=== PATIENT | male | born 1945 | race Caucasian/White ===

== ENCOUNTER 2022-09-24 05:46 | Inpatient (IN) | payer MEDICARE, SELFPAY ==
[2022-09-24] VITALS (33 sets, daily range): BP systolic 91–154; BP diastolic 56–124; PULSE 62–102; RESP 14–37; TEMP 35.6–37.4; O2SAT 94–100; BMI 33.0
--- NOTE | ~2022-09-24 | XR_ITS ---
EXAMINATION: XR chest PICC line Exam Date/Time: 09/30/2022 16:00 CDT HISTORY: picc line Comparison: CT 09/24/2022. RESULT: Lines, tubes, and devices: New right upper extremity PICC, terminating in the distal SVC. Lungs and pleura: Clear. Bilateral costophrenic angles are excluded from the ktgya-ak-uhin. Cardiomediastinal silhouette: Stable. Other: No acute osseous or upper abdominal finding. IMPRESSION: New right upper extremity PICC, in good position. Reviewed, dictated and finalized at location K.
--- NOTE | ~2022-09-24 | CT_ITS ---
EXAMINATION: CTA chest abdomen pelvis DATE: 09/24/2022 06:32 INDICATION: Chest pain TECHNIQUE: Computed tomographic angiography (CTA) of the chest, abdomen, and pelvis was performed wit hout and with 100 mL Omnipaque-350 intravenous contrast. Volume-rendered 3D-reconstructions of the ao rta and large arteries were constructed by the technologist on a separate workstation. Automated expo sure control and iterative reconstruction technique were employed. The dose-length product was 3590.5 8 mGy-cm. COMPARISON: None FINDINGS: Chest: Small region of focal consolidation without associated volume loss at the paramediastinal left upper lobe which is concerning for pneumonia. 5 mm left lower lobe nodule. No pulmonary edema, pleural effu jeanine or pneumothorax. Cardiomegaly with biatrial enlargement. Atherosclerotic coronary artery calcifi cations. No pericardial effusion. Thoracic aorta is normal in caliber with no dissection. No pulmonar y embolism to at least the lobar pulmonary arteries. No definitive more distal pulmonary embolism alt tegan sensitivity is decreased by suboptimal contrast opacification of the pulmonary arteries and res piratory motion. Likely reactive mild mediastinal lymphadenopathy. There are bridging osteophytes at multiple levels in the spine, consistent with diffuse idiopathic skeletal hyperostosis (DISH). Abdomen/pelvis: Suggestion of subtle liver surface nodularity suspicious for cirrhosis. Gallbladder, spleen, pancreas and bilateral adrenal glands are normal. Bilateral renal cysts the larger on the right measuring 6 c m. Indeterminate 8 mm lesion in the left kidney with thin linear internal enhancement suggesting a se ptation, at least Bosniak 2F but too small to definitively characterize. Bowels including the appendi x are normal. Bladder is normal. Prostatomegaly measuring 5.2 x 4.3 cm. Atherosclerotic calcification s along the normal caliber abdominal aorta and several of its branch vessels. No abdominal aortic ane urysm. There is a penetrating atherosclerotic ulcer along the right side of the distal abdominal aort a just within a blisterlike bulge measuring 6 mm thickness and approximately 1.8 cm diameter located near a tiny accessory right renal artery. There are also 2 tiny accessory left renal arteries. No ignacia e intraperitoneal gas or fluid. No pathologically enlarged abdominal or pelvic lymphadenopathy. Moder ate to severe lumbar spondylosis. IMPRESSION: 1. Small region of consolidation at the medial left upper lobe which is concerning for pneumonia. Dif ferential would include pulmonary infarct although no pulmonary emboli are appreciated. 2. 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 No aneurysm. 3. Cardiomegaly with biatrial enlargement. 4. Liver surface appears somewhat nodule which could be seen with cirrhosis. 5. 8 mm at least Bosniak 2F lesion at the left kidney which is too small to definitively characterize . Would recommend six-month follow-up with pre and postcontrast MRI or CT. 6. Prostatomegaly. 7. 5 mm left lower lobe nodule. If the patient is low risk for lung cancer, no follow-up is needed. I f the patient is high risk (i.e., history of smoking or asbestos or significant radiation exposure), optional follow-up chest CT could be considered at 12 months. Reviewed, dictated and finalized at location A. IMPRESSION: 1. Small region of consolidation at the medial left upper lobe which is concern ing for pneumonia. Differential would include pulmonary infarct although no pul monary emboli are appreciated. 2. 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 No aneur ysm. 3. Cardiomegaly with biatrial enlargement. 4. Liver surface appears somewhat nodule which could be seen with cirrhosis.
--- NOTE | 2022-09-24 05:48 | ECG_ITS ---
Measurements Intervals [place] Rate: 82 P: FL: 0 QRS: -72 QRSD: 82 T: 72 QT: 347 QTc: 407 Interpretive Statements POSSIBLE ATRIAL FIBRILLATION WITH ABERRANT CONDUCTION OR VENTRICULAR PREMATURE COMPLEXES BASELINE ARTIFACT PRESENT, LIMITING INTERPRETATION LEFT AXIS DEVIATION [QRS AXIS < -30] INFERIOR MYOCARDIAL INFARCTION , PROBABLY OLD [40+ ms Q WAVE AND/OR ST/T ABNORMALITY IN II/aVF] NO PREVIOUS ECG AVAILABLE FOR COMPARISON Electronically Signed On 09-24-2022 16:13:24 CDT by Froylan Osorio M.D.
[2022-09-24 06:04] LABS: Basophils Absolute Auto 0.1 K/mm3 (0.0-0.1); Basophils Percent Auto 0.5 % (0.2-1.2); Eosinophils Absolute Auto 0.1 K/mm3 (0-0.3); Eosinophils Percent Auto 0.3 % (0-4.4); Hematocrit 53.5 % (42.0-52.0); Hemoglobin 17.4 g/dL (14.0-18.0); Immature Granulocyte Absolute 0.08 K/mm3 (0.00-0.031); Immature Granulocyte Percent A 0.4 % (0-0.5); Lymphocytes Absolute Auto 1.36 K/mm3 (0.9-3.2); Lymphocytes Percent Auto 6.9 % (18.3-44.2); Mean Corpuscular HGB Conc 32.5 g/dl (32-36); Mean Corpuscular Hemoglobin 31.1 pg (26-34); Mean Corpuscular Volume 95.7 fl (80-100); Mean Platelet Volume 9.2 fl (7.4-10.4); Neutrophils Absolute Auto 17.3 K/mm3 (1.3-6.7); Neutrophils Percent Auto 86.9 % (45.5-73.1); Platelet Count Result 240 k/mm3 (150-375); Red Blood Count 5.59 M/mm3 (4.6-6.20); Red Cell Distribution Width 14.5 % (11.5-14.5); White Blood Count 19.9 K/mm3 (4.5-10.0)
[2022-09-24 06:14] LABS: Lactic Acid Reflex 2.9 mmol/L (0.7-2.0)
[2022-09-24 06:15] LABS: Alanine Aminotransferase 20 U/L (6-50); Albumin Level 4.8 g/dL (3.5-5.1); Alkaline Phosphatase 64 U/L (38-126); Anion Gap 15 mmol/L (8-16); Aspartate Amino Transferase 29 U/L (17-59); Bilirubin,Total 1.1 mg/dL (0.2-1.3); Blood Urea Nitrogen 19 mg/dL (9-20); Calcium 9.1 mg/dL (8.4-10.2); Carbon Dioxide 31 mmol/L (22-30); Chloride 94 mmol/L (98-107); Estimated Glomerular Filt Rate 59; Glucose 160 mg/dL (65-110); Lipase 87 U/L (23-300); Potassium 3.8 mmol/L (3.4-5.0); Sodium 140 mmol/L (137-145)
[2022-09-24 06:16] LABS: INR 1.3; Prothrombin Time 15.2 Seconds (11.1-14.7)
[2022-09-24] MEDS: MORPHINE SULFATE (*CRX) 4 MG/ML INJ IV PUSH (06:20)
[2022-09-24 06:27] LABS: Troponin I < 0.012 ng/mL (0.000-0.034)
[2022-09-24 06:29] LABS: Alveolar/Arterial O2 Gradient 153.3 mmHg; Base Excess ABG 0.8 mEq/l (+/-2.0); Fractional Inspired Oxygen 100 %; HCO3 ABG 25.1 mEq/l (22.0-26.0); Oxygen Content ABG 23.7 %vol (16.0-22.0); Oxygen Saturation ABG 99.9 % (95.0-100.0); Oxyhemoglobin 97.8 % THb (90.0-100.0); PO2 ABG 520.7 mmHg (80.0-100.0); PO2 FiO2 Ratio Arterial Blood 5.21 %; Total Hemoglobin 16.2 g/dL (12.0-18.0); pH ABG 7.426 (7.350-7.450)
[2022-09-24 06:30] LABS: Device NON-INVASIVE VENT; Modified Allen's Test Pass; Site Drawn LEFT RADIAL
[2022-09-24] MEDS: ASPIRIN 81 MG CHEWABLE TABLET 324 MG PO (06:30)
[2022-09-24 06:31] LABS: Non-Invasive Expiratory Pressure 6 CMH2O; Non-Invasive Inspiratory Pressure 12 CMH2O; Non-Invasive Vent Rate 4 /MIN
--- NOTE | 2022-09-24 06:33 | ED.GENADULT ---
HPI - General Adult General Chief complaint: Chest Pain <Uriel Morataya MD - Last Filed: 09/24/22 06:35> Stated complaint: chest pain <Uriel Morataya MD - Last Filed: 09/24/22 06:35> Time Seen by Provider: 09/24/22 05:55 <Uriel Morataya MD - Last Filed: 09/24/22 06:35> History of Present Illness HPI narrative: Patient is a 77-year-old gentleman who presents the emergency department with chief complaint of back pain and shortness of breath. Patient reports this evening he started having pain between shoulder blades reports it is a sharp ripping type sensation. Patient states that he started to become more short of breath his noticed that he was very mottled on his appearance and I decided to bring him to the emergency department. Patient reports symptoms or not improved by anything and reports that has not had symptoms like this before in the past. Patient does report that he is on anticoagulants. <Uriel Morataya MD - Last Filed: 09/24/22 06:35> Related Data Home medications: Home Medications Medication Instructions Recorded Confirmed acetaminophen 650 mg tablet 650 mg PO Q4H PRN Pain 09/24/22 09/24/22 alprazolam 0.25 mg tablet 0.25 mg PO HS PRN Anxiety 09/24/22 09/24/22 apixaban 5 mg tablet (Eliquis) 5 mg PO Q12H 09/24/22 09/24/22 diphenhydramine HCl 25 mg capsule 25 mg PO TID PRN Itching 09/24/22 09/24/22 (Benadryl) fluticasone propionate 50 2 spray intranasal DAILY 09/24/22 09/24/22 mcg/actuation nasal spray,suspension loratadine 10 mg tablet (Claritin) 10 mg PO DAILY 09/24/22 09/24/22 melatonin 10 mg tablet 10 mg PO HS 09/24/22 09/24/22 metoprolol succinate 100 mg 100 mg PO QPM 09/24/22 09/24/22 tablet,extended release 24 hr montelukast 10 mg tablet 10 mg PO DAILY 09/24/22 09/24/22 nbaevhfo-aog-oscdg acid 300 1 tablet PO DAILY 09/24/22 09/24/22 mcg-lycopene 600 mcg-lutein 300 [facility]cg tablet [facility] pantoprazole 40 mg tablet,delayed 40 mg PO QPM 09/24/22 09/24/22 release pravastatin 40 mg tablet 40 mg PO QPM 09/24/22 09/24/22 valsartan 320 1 tablet PO DAILY 09/24/22 09/24/22 mg-hydrochlorothiazide 25 mg tablet <Uriel Morataya MD - Last Filed: 09/24/22 06:35> Allergies/adverse reactions: Allergies Allergy/AdvReac Type Severity Reaction Status Date / Time nirmatrelvir AdvReac Insomnia Verified 09/24/22 12:51 [From Paxlovid (EUA)] ritonavir AdvReac Insomnia Verified 09/24/22 12:51 [From Paxlovid (EUA)] <Uriel Morataya MD - Last Filed: 09/24/22 06:35> Review of Systems Review of Systems: A 10 system review of systems was completed on the patient and is negative except for what is stated in the HPI. Nursing and ancillary documentation was reviewed. <Uriel Morataya MD - Last Filed: 09/24/22 06:35> [facility] Family History Family History: Family History Father Heart problem Lung cancer Hernia Sibling Heart problem Family history of heart disease in male family member before age 55 Breast cancer Uterine cancer Mother Hypertension Diabetes mellitus Anemia <Uriel Morataya MD - Last Filed: 09/24/22 06:35> Social History Social History: Social History Smoking packs per day: 1 Smoking cigarettes per day: 20.0 Years smoked: 33 Smoking pack-years: 33.00 Smoking status: Former smoker Tobacco type: cigarettes Alcohol intake: current Drinks per week: 1 Substance use: current Substance use type: marijuana Spiritual care concerns: No Has the Lack of Transportation Kept You From Medical Appointments or From Getting Medications?: No Within the Past 12 Months, Were You Worried Whether Your Food Would Run Out Before You Got Money to Buy More?: Never True What is Your Housing Situation Today?: I Have Ho
[2022-09-24 07:00] LABS: Procalcitonin 0.1 ng/mL
[2022-09-24 07:05] LABS: Influenza A QL RT-PCR Negative (Negative); Influenza B QL RT-PCR Negative (Negative); SARS-CoV-2 RNA PCR Negative
[2022-09-24 07:55] LABS: NT Pro B Type Natriuretic Pept 2970 pg/mL (5-100)
[2022-09-24 09:02] LABS: Reflex Lactic Acid Yes or No Add Lactic
[2022-09-24 09:08] LABS: Troponin I 0.028 ng/mL (0.000-0.034)
[2022-09-24 09:28] LABS: Lactic Acid 2.2 mmol/L (0.7-2.0)
--- NOTE | 2022-09-24 10:41 | PC.NURSE ---
EDP John notified of patient's blood pressure of 102/64. Per EDP, do not administer Lasix at this time. Patient resting comfortably in bed.
--- NOTE | 2022-09-24 11:36 | PC.NURSE ---
Report received by Rikki RN with the ED department at 1108. Patient to go to IMU room 232.
--- NOTE | 2022-09-24 11:36 | ADMGEN ---
This patient, Billy Russ, was admitted to IMU Room 232-01 at 1131. Patient/family oriented to hospital policies and general routines including ID bracelet, bed and alarms, visiting hours, pain management, procedures, bathroom and other care routines, personal items, smoking policy, room service/diet, and visiting hours. Information on how to activate the Rapid Response Team has been discussed. Patient/Family are encouraged to report perceived risks to care and to ask questions if they do not understand what they are told or what they should do.
--- NOTE | 2022-09-24 11:43 | PC.NURSE ---
Patient arrived from ED on bipap with settings of 11/05, rate 4, 35% FiO2
[2022-09-24 12:06] LABS: Alveolar/Arterial O2 Gradient 65.8 mmHg; Base Excess ABG 1.8 mEq/l (+/-2.0); Device BIPAP; Expiratory Pressure 6 cmH2O; Fractional Inspired Oxygen 35 %; Inspiratory Pressure 12 cmH2O; Modified Allen's Test Pass; Oxygen Saturation ABG 98.8 % (95.0-100.0); Oxyhemoglobin 96.9 % THb (90.0-100.0); PCO2 ABG 39.4 mmHg (35.0-45.0); PO2 FiO2 Ratio Arterial Blood 3.94 %; Site Drawn RIGHT RADIAL; pH ABG 7.437 (7.350-7.450)
[2022-09-24 16:24] LABS: Troponin I 0.029 ng/mL (0.000-0.034)
--- NOTE | 2022-09-24 16:45 | PM.IMHP ---
H&P: HPI History of Present Illness Date/Time: 09/24/22 16:45 Chief Complaint: Chest pain and shortness of breath. Narrative: This is a very pleasant 77-year-old male with paroxysmal atrial fibrillation on anticoagulation, hypertension, hyperlipidemia, COPD, GERD, and spinal stenosis who presented to the emergency department via private vehicle from home for evaluation of chest pain and shortness of breath. He was feeling fine when he went to bed last night at about 03:00 he was wakened from sleep with sudden sharp, shooting, and almost ripping pain just left of the sternum radiating through to the left scapula associated with shortness of breath. Initially he thought he had strained his back muscles as they had company last week and they went on excursions that he does not typically do, including a hike at [facility]. He had his massage the area which did not alleviate or aggravate the pain and due to continued symptoms he came into the ER for further evaluation. On arrival to triage his SpO2 was 88% on room air and he was reportedly using accessory muscles to help him breathe. He was placed on a non-rebreather and ultimately was placed on a BiPAP though he has been weaned off of that. CTA of the chest, abdomen, and pelvis performed emergently showed a small region of consolidation at the medial left upper lobe concerning for pneumonia with a differential diagnosis to include pulmonary infarct however no pulmonary emboli were appreciated. 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 Patient reports that he is being followed by a vascular surgeon in [place] for this. Labs were significant for a WBC of 19.9, lactic acid 2.9, proBNP 2970, and normal troponin x3. EKG did not show any acute ST segment changes. Given his comorbidities, he is being admitted for observation and close monitoring. At the time my evaluation he is resting comfortably and he does not have any significant discomfort. We did discuss findings of possible pneumonia on imaging and he reports having a history of pneumonia though he has not necessarily had any symptoms of such aside from fatigue the last couple of days. He denies fever, chills, sweats, sinus congestion, sore throat, cough, sick contacts (he has been out and about in the community though more over the last week as company was in town), exertional chest pain, pleuritic pain, palpitations, syncope, near syncope, nausea, vomiting, and diaphoresis. Of note the patient is followed by Dr. Stephany esparza with [facility] in [place] and he has an appointment next week for stress test, not particularly for any reason or any issues with chest pain. Review of Systems Review of Systems: Twelve systems were reviewed. No syncope or near syncope. Prostate was enlarged on imaging and he does report that he gets up at least 2 times at night to urinate. Denies concerns for urinary retention. Urine has been malodorous but he denies dysuria, urgency, and hesitancy. Except as documented, all other systems were reviewed and are negative. [facility] Past Medical History Medical History (Updated 09/24/22 @ 21:47 by Katya Ponce PA-C) Anxiety Aortic aneurysm Being monitored by a vascular surgeon in [place]. 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 No aneurysm. Arthritis Chronic anticoagulation Chronic obstructive pulmonary disease Obstructive sleep apnea on CPAP Paroxysmal atrial fibrillation Spinal stenosis Surgical History Surgical History (Updated 09/24/22 @ 21:11 by Katya Ponce PA-C) History of bilateral cataract extraction History of cardiac radiofrequency ablation Family History Family History Father Heart problem Lung cancer Hernia Sibling Heart problem Family history of heart disease in male family member before
[2022-09-24] MEDS: MELATONIN 5 MG TABLET 10 MG PO (22:47)
[2022-09-24] MEDS: PANTOPRAZOLE 40 MG TABLET PO (22:47)
[2022-09-24] MEDS: PRAVASTATIN SODIUM 20 MG TABLET 40 MG PO (22:47)
[2022-09-24] MEDS: APIXABAN 5 MG TABLET PO (22:48)
[2022-09-24] MEDS: ACETAMINOPHEN 325 MG TABLET 650 MG PO (22:55)
[2022-09-25] VITALS (14 sets, daily range): BP systolic 128–151; BP diastolic 66–88; PULSE 66–83; RESP 16–20; TEMP 35.8–37.6; O2SAT 96–99
[2022-09-25 05:19] LABS: Hematocrit 46.4 % (42.0-52.0); Hemoglobin 14.9 g/dL (14.0-18.0); Mean Corpuscular HGB Conc 32.1 g/dl (32-36); Mean Corpuscular Volume 96.7 fl (80-100); Mean Platelet Volume 9.5 fl (7.4-10.4); Platelet Count Result 171 k/mm3 (150-375); Red Cell Distribution Width 14.8 % (11.5-14.5); White Blood Count 19.4 K/mm3 (4.5-10.0)
[2022-09-25 05:29] LABS: Anion Gap 11 mmol/L (8-16); Blood Urea Nitrogen 27 mg/dL (9-20); Calcium 8.5 mg/dL (8.4-10.2); Carbon Dioxide 32 mmol/L (22-30); Chloride 96 mmol/L (98-107); Estimated CRCL calculation 57 ml/min; Estimated Glomerular Filt Rate 54; Glucose 118 mg/dL (65-110); Lactic Acid Reflex 1.7 mmol/L (0.7-2.0); Potassium 3.8 mmol/L (3.4-5.0); Sodium 139 mmol/L (137-145)
[2022-09-25] MEDS: FLUTICASONE PROPIONATE 0.05% NA SPR 16 GM BTL (*BKC) 2 SPRAY NASAL (09:12)
[2022-09-25] MEDS: hydroCHLOROthiazide 25 MG TABLET PO (09:12)
[2022-09-25] MEDS: APIXABAN 5 MG TABLET PO ×2 (09:12→21:09)
[2022-09-25] MEDS: MONTELUKAST SODIUM 10 MG TABLET PO (09:12)
[2022-09-25] MEDS: VALSARTAN 160 MG TABLET 320 MG PO (09:12)
[2022-09-25] MEDS: OPTI-GEN TAB 1 TABLET PO (09:12)
[2022-09-25] MEDS: LORATADINE 10 MG TABLET PO (09:12)
[2022-09-25] MEDS: cefTRIAXone 2 GM in SODIUM CHLORIDE 0.9% IV 100 ML 200 ML IVPB (09:32)
[2022-09-25] MEDS: PERFLUTREN LIPID MICROSPHERES 1.5 ML VIAL DILUTED TO 10 ML TOTAL VOLUME IV PUSH (10:41)
--- NOTE | 2022-09-25 10:42 | IVDEFINITY ---
Prior to administration of IV Definity the patient was educated on the risks and benefits of the imaging enhancing agent including potential adverse side effects. The patient verbalized understanding. Allergies were verified. No exclusion criteria were identified and at least one of the following inclusion criteria were met: 1) physician request, 2) patient technically difficult to image (per the [place] [employer] guidelines of two or more segments not discernable within the apical view), or 3) questionable left ventricular function. ?
[2022-09-25] MEDS: UMECLIDINIUM BROMIDE 62.5 MCG ELLIPTA 1 PUFF INHALATION (13:48)
--- NOTE | 2022-09-25 16:33 | PM.IMPN ---
Progress Note: A&P Assessment and Plan (1) Chest pain: Code(s): R07.9 - Chest pain, unspecified Status: Acute Assessment and Plan: 09/25/2022 interval history: patient presented with chest pain CT scan of the chest showed pneumonia, patient has significant elevated white count, and blood culture is growing Gram-negative bacilli we started the patient ceftriaxone 2 g q.day and azithromycin, follow-up on blood culture and sensitivity and further recommendation to follow, states is feeling much better compared to when he arrived chest pain is also improved, marianne (2) Shortness of breath: Code(s): R06.02 - Shortness of breath Status: Acute (3) Consolidation of left upper lobe of lung: Code(s): J18.1 - Lobar pneumonia, unspecified organism Status: Acute (4) Cardiomegaly: Code(s): I51.7 - Cardiomegaly Status: Acute (5) Penetrating atherosclerotic ulcer of aorta: Code(s): I71.9 - Aortic aneurysm of unspecified site, without rupture Status: Acute (6) Lesion of left false pass kidney: Code(s): N28.9 - Disorder of kidney and ureter, unspecified Status: Acute (7) Left lower lobe pulmonary nodule: Code(s): R91.1 - Solitary pulmonary nodule Status: Acute (8) Enlarged prostate: Code(s): N40.0 - Benign prostatic hyperplasia without lower urinary tract symptoms Status: Acute (9) Abnormal liver diagnostic imaging: Code(s): R93.2 - Abnormal findings on diagnostic imaging of liver and biliary tract Status: Acute (10) Obstructive sleep apnea on CPAP: Code(s): G47.33 - Obstructive sleep apnea (adult) (pediatric); Z99.89 - Dependence on other enabling machines and devices Status: Acute (11) Chronic obstructive pulmonary disease: Code(s): J44.9 - Chronic obstructive pulmonary disease, unspecified Status: Acute (12) Paroxysmal atrial fibrillation: Code(s): I48.0 - Paroxysmal atrial fibrillation Status: Acute (13) Chronic anticoagulation: Code(s): Z79.01 - senior living (current) use of anticoagulants Status: Acute Plan The patient presented to the emergency department for evaluation of sharp, shooting, and ripping pain in the left mid chest region radiating to the left scapula associated with shortness of breath and mild lightheadedness. CTA of the chest, abdomen, and pelvis ruled out dissection and pulmonary embolism. A small region of consolidation noted at the medial left upper lobe is concerning for pneumonia and given his elevated white blood cell count he will be empirically started on antibiotics. Penetrating atherosclerotic ulcer along the distal abdominal aorta was noted and patient reports that he is seeing a vascular surgeon in [place] for an aneurysm though I am wondering if it is instead for this ulcer. He has rule out for acute coronary syndrome by serial troponins and his EKG does not demonstrate any acute ST segment changes. Cardiomegaly with biatrial enlargement was noted on imaging today thus will check an echocardiogram and if abnormal he will need to see Cardiology in consultation. He does have an upcoming appointment on Friday with his senior technical writer, Dr. Valentin in [place]. No evidence to suggest acute COPD exacerbation on exam today. A 5 millimeter left lower lobe nodule was noted on imaging and with his smoking history he should have a follow-up chest CT in 12 months for re-evaluation. Also noted was an 8 millimeter left kidney lesion which the radiologist recommends following up with a pre and post-contrast MRI or CT in 6 months time. Liver surface appeared somewhat nodular which could be seen with cirrhosis in this should be worked up as an outpatient. His vital signs have been stable. His home medications will be reviewed and resumed as appropriate. Subjective Date/time seen: 09/25/22 16:33 HPI-Narrative: This is a very pleasant 77-year-old male with paroxysmal atrial fi
[2022-09-25] MEDS: PANTOPRAZOLE 40 MG TABLET PO (17:35)
[2022-09-25] MEDS: PRAVASTATIN SODIUM 20 MG TABLET 40 MG PO (17:36)
[2022-09-25] MEDS: METOPROLOL SUCCINATE EXT REL 100 MG TABCR PO (17:36)
[2022-09-25] MEDS: MELATONIN 5 MG TABLET 10 MG PO (21:09)
--- NOTE | 2022-09-25 21:52 | ECHO_ITS ---
Patient Info Name: Billy Russ Age: 77 years : 1945 Gender: Male Ht: 73 in Wt: 250 lbs BSA: 2.45 m2 HR: 75 bpm BP: 145 / 68 mmHg Heart Rhythm: Atrial Fibrillation Technical Quality: Fair Exam Date: 09/25/2022 10:17 AM Exam Location: [facility] Pulmonary Patient Status: Inpatient Admit Date: 09/24/2022 Staff Ordering Physician: Katya Ponce PA-C Automobile Spring Repairer: Terra Greene RDCS Attending Provider: Jacoby Pinto MD Referring Physician: Rosario BARRAGAN; Exam Type: CA echo dop color flow w con Study Info Indications - Afib I51.7 - Cardiomegaly R07.9 - Chest pain, unspecified Complete two-dimensional, color flow and Doppler transthoracic echocardiogram is performed with contrast to opacify the left ventricle and to improve the deliniation of the left ventricle endocardial borders. Contrast/Agitated Saline Contrast/Ag. Saline: Definity Amount: 3.00 ml Administered By: Terra Greene RDCS Existing IV Access: Yes IV Access Condition: patent with no signs of infiltration Summary 1. Left ventricular systolic function is normal, estimated at 60-65%. 2. Right ventricular systolic function is normal. 3. There is mild tricuspid valve regurgitation. Left Ventricle Left ventricular chamber dimension is normal. Left ventricular systolic function is normal, estimated at 60-65%. There is no increased left ventricular wall thickness. Right Ventricle Right ventricular chamber dimension is normal. Right ventricular systolic function is normal. Left Atria Left atrial chamber dimension is normal. Right Atria Right atrial chamber dimension is mildly enlarged. Aortic Valve The aortic valve is not well visualized. There is no aortic valve stenosis. There is no aortic valve regurgitation. Pulmonic Valve The pulmonic valve is not well visualized. Mitral Valve The mitral valve has normal leaflets. There is no mitral valve stenosis. There is no mitral valve regurgitation. Tricuspid Valve The tricuspid valve leaflets are normal. There is mild tricuspid valve regurgitation. Pericardium/Pleural The pericardium appears epicardial fat pad. There is no pericardial effusion. Inferior Vena Cava Dilated inferior vena cava with <50% collapse upon inspiration consistent with elevated right atrial pressure, 15 mmHg. Aorta The aortic root size at the sinus of Valsalva is normal. Left Ventricular Outflow Tract Name Value Normal LVOT 2D LVOT Diameter 2.21 cm LVOT Doppler LVOT Peak Gradient 2 mmHg LVOT Mean Gradient 1 mmHg LVOT VTI 12.61 cm LVOT VTI/AV VTI Ratio 0.54 LVOT Stroke Volume 48.15 ml LVOT CO 3.63 l/min LVOT CI 1.48 L/min/m2 Pulmonic Valve Name Value Normal
[2022-09-26 05:36] VITALS: BP 131/68; PULSE 74; RESP 18; TEMP 36.8; O2SAT 94
--- NOTE | 2022-09-26 05:40 | PC.NURSE ---
This patient, Billy Russ, was transferred to [facility] on 09/25/22 at 2130. Personal belongings sent with patient. Report given to Hal[place]. Appropriate documentation sent with patient.
[2022-09-26 05:44] LABS: Hematocrit 47.3 % (42.0-52.0); Hemoglobin 15.6 g/dL (14.0-18.0); Mean Corpuscular Hemoglobin 31.4 pg (26-34); Mean Corpuscular Volume 95.2 fl (80-100); Mean Platelet Volume 9.7 fl (7.4-10.4); Platelet Count Result 165 k/mm3 (150-375); Red Blood Count 4.97 M/mm3 (4.6-6.20); Red Cell Distribution Width 14.6 % (11.5-14.5); White Blood Count 13.5 K/mm3 (4.5-10.0)
[2022-09-26 05:56] LABS: Anion Gap 11 mmol/L (8-16); Blood Urea Nitrogen 24 mg/dL (9-20); Calcium 8.8 mg/dL (8.4-10.2); Carbon Dioxide 32 mmol/L (22-30); Chloride 96 mmol/L (98-107); Estimated CRCL calculation 67 ml/min; Estimated Glomerular Filt Rate > 60; Glucose 124 mg/dL (65-110); Potassium 3.5 mmol/L (3.4-5.0); Sodium 139 mmol/L (137-145)
[2022-09-26] MEDS: APIXABAN 5 MG TABLET PO ×2 (08:35→21:53)
[2022-09-26] MEDS: FLUTICASONE PROPIONATE 0.05% NA SPR 16 GM BTL (*BKC) 2 SPRAY NASAL (08:35)
[2022-09-26] MEDS: hydroCHLOROthiazide 25 MG TABLET PO (08:35)
[2022-09-26] MEDS: OPTI-GEN TAB 1 TABLET PO (08:36)
[2022-09-26] MEDS: MONTELUKAST SODIUM 10 MG TABLET PO (08:36)
[2022-09-26] MEDS: VALSARTAN 160 MG TABLET 320 MG PO (08:36)
[2022-09-26] MEDS: LORATADINE 10 MG TABLET PO (08:36)
[2022-09-26 09:03] VITALS: PULSE 79; O2SAT 93
[2022-09-26] MEDS: UMECLIDINIUM BROMIDE 62.5 MCG ELLIPTA 1 PUFF INHALATION (09:03)
[2022-09-26] MEDS: cefTRIAXone 2 GM in SODIUM CHLORIDE 0.9% IV 100 ML 200 ML IVPB (10:56)
[2022-09-26 14:00] VITALS: BP 141/84; PULSE 73; RESP 16; TEMP 36.8; O2SAT 99
--- NOTE | 2022-09-26 16:19 | PM.IMPN ---
Progress Note: A&P Assessment and Plan (1) Chest pain: Code(s): R07.9 - Chest pain, unspecified Status: Acute Assessment and Plan: 09/26/2022 interval history: patient presented with chest pain CT scan of the chest showed pneumonia, patient has significant elevated white count, and blood culture is growing Pseudomonas, discussed with pharmacy ID patient will need Cefepime for 14 days, will continue azithromycin to cover for atypicals, patient states states is feeling much better compared to when he arrived chest pain is also improved. (2) Shortness of breath: Code(s): R06.02 - Shortness of breath Status: Acute (3) Consolidation of left upper lobe of lung: Code(s): J18.1 - Lobar pneumonia, unspecified organism Status: Acute (4) Cardiomegaly: Code(s): I51.7 - Cardiomegaly Status: Acute (5) Penetrating atherosclerotic ulcer of aorta: Code(s): I71.9 - Aortic aneurysm of unspecified site, without rupture Status: Acute (6) Lesion of left [place] kidney: Code(s): N28.9 - Disorder of kidney and ureter, unspecified Status: Acute (7) Left lower lobe pulmonary nodule: Code(s): R91.1 - Solitary pulmonary nodule Status: Acute (8) Enlarged prostate: Code(s): N40.0 - Benign prostatic hyperplasia without lower urinary tract symptoms Status: Acute (9) Abnormal liver diagnostic imaging: Code(s): R93.2 - Abnormal findings on diagnostic imaging of liver and biliary tract Status: Acute (10) Obstructive sleep apnea on CPAP: Code(s): G47.33 - Obstructive sleep apnea (adult) (pediatric); Z99.89 - Dependence on other enabling machines and devices Status: Acute (11) Chronic obstructive pulmonary disease: Code(s): J44.9 - Chronic obstructive pulmonary disease, unspecified Status: Acute (12) Paroxysmal atrial fibrillation: Code(s): I48.0 - Paroxysmal atrial fibrillation Status: Acute (13) Chronic anticoagulation: Code(s): Z79.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 CTA of the chest, abdomen, and pelvis ruled out dissection and pulmonary embolism. A small region of consolidation noted at the medial left upper lobe is concerning for pneumonia and given his elevated white blood cell count he will be empirically started on antibiotics. Penetrating atherosclerotic ulcer along the distal abdominal aorta was noted and patient reports that he is seeing a vascular surgeon in [place] for an aneurysm though I am wondering if it is instead for this ulcer. He has rule out for acute coronary syndrome by serial troponins and his EKG does not demonstrate any acute ST segment changes. Cardiomegaly with biatrial enlargement was noted on imaging today thus will check an echocardiogram and if abnormal he will need to see Cardiology in consultation. He does have an upcoming appointment on Friday with his elevator repairer, Dr. Valentin in [place]. No evidence to suggest acute COPD exacerbation on exam today. A 5 millimeter left lower lobe nodule was noted on imaging and with his smoking history he should have a follow-up chest CT in 12 months for re-evaluation. Also noted was an 8 millimeter left kidney lesion which the radiologist recommends following up with a pre and post-contrast MRI or CT in 6 months time. Liver surface appeared somewhat nodular which could be seen with cirrhosis in this should be worked up as an outpatient. His vital signs have been stable. His home medications will be reviewed and resumed as appropriate. Subjective Date/time seen: 09/26/22 16:19 09/26/2022 interval history: patient presented with chest pain CT scan of the chest showed pneumonia
[2022-09-26 17:13] VITALS: PULSE 71
[2022-09-26] MEDS: METOPROLOL SUCCINATE EXT REL 100 MG TABCR PO (17:13)
[2022-09-26] MEDS: PRAVASTATIN SODIUM 20 MG TABLET 40 MG PO (17:13)
[2022-09-26] MEDS: PANTOPRAZOLE 40 MG TABLET PO (17:13)
[2022-09-26] MEDS: MELATONIN 5 MG TABLET 10 MG PO (21:53)
[2022-09-26 22:00] VITALS: BP 144/87; PULSE 75; RESP 18; TEMP 36.4; O2SAT 96
[2022-09-27 05:45] VITALS: BP 147/83; PULSE 83; RESP 18; TEMP 36.4; O2SAT 97
[2022-09-27 05:47] LABS: Hematocrit 47.8 % (42.0-52.0); Hemoglobin 15.9 g/dL (14.0-18.0); Mean Corpuscular HGB Conc 33.3 g/dl (32-36); Mean Corpuscular Hemoglobin 31.3 pg (26-34); Mean Corpuscular Volume 94.1 fl (80-100); Mean Platelet Volume 9.9 fl (7.4-10.4); Platelet Count Result 214 k/mm3 (150-375); Red Blood Count 5.08 M/mm3 (4.6-6.20); Red Cell Distribution Width 14.4 % (11.5-14.5); White Blood Count 11.9 K/mm3 (4.5-10.0)
[2022-09-27 06:01] LABS: Anion Gap 10 mmol/L (8-16); Blood Urea Nitrogen 21 mg/dL (9-20); Calcium 9.1 mg/dL (8.4-10.2); Carbon Dioxide 26 mmol/L (22-30); Chloride 98 mmol/L (98-107); Estimated CRCL calculation 73 ml/min; Estimated Glomerular Filt Rate > 60; Glucose 118 mg/dL (65-110); Potassium 3.8 mmol/L (3.4-5.0); Sodium 134 mmol/L (137-145)
[2022-09-27] MEDS: UMECLIDINIUM BROMIDE 62.5 MCG ELLIPTA 1 PUFF INHALATION (07:51)
[2022-09-27] MEDS: FLUTICASONE PROPIONATE 0.05% NA SPR 16 GM BTL (*BKC) 2 SPRAY NASAL (09:30)
[2022-09-27] MEDS: APIXABAN 5 MG TABLET PO ×2 (09:30→21:46)
[2022-09-27] MEDS: hydroCHLOROthiazide 25 MG TABLET PO (09:30)
[2022-09-27] MEDS: VALSARTAN 160 MG TABLET 320 MG PO (09:31)
[2022-09-27] MEDS: MONTELUKAST SODIUM 10 MG TABLET PO (09:31)
[2022-09-27] MEDS: OPTI-GEN TAB 1 TABLET PO (09:31)
[2022-09-27] MEDS: LORATADINE 10 MG TABLET PO (09:31)
[2022-09-27 15:32] VITALS: BP 148/97; PULSE 73; RESP 18; TEMP 36.7; O2SAT 97
--- NOTE | 2022-09-27 16:28 | PM.IMPN ---
Progress Note: A&P Assessment and Plan (1) Chest pain: Code(s): R07.9 - Chest pain, unspecified Status: Acute Assessment and Plan: 09/27/2022 interval history: patient presented with chest pain CT scan of the chest showed pneumonia, patient had significant elevated white count 19.0 its trending down to 11.9 today, and blood culture is growing Pseudomonas, discussed with pharmacy ID patient will need Cefepime for 14 days, will continue azithromycin to cover for atypicals, patient states states is feeling much better compared to when he arrived and chest pain is also improved. there is a possibility the patient can finish remaining antibiotics at home social service is working on the plan (2) Shortness of breath: Code(s): R06.02 - Shortness of breath Status: Acute (3) Consolidation of left upper lobe of lung: Code(s): J18.1 - Lobar pneumonia, unspecified organism Status: Acute (4) Cardiomegaly: Code(s): I51.7 - Cardiomegaly Status: Acute (5) Penetrating atherosclerotic ulcer of aorta: Code(s): I71.9 - Aortic aneurysm of unspecified site, without rupture Status: Acute (6) Lesion of left [place] kidney: Code(s): N28.9 - Disorder of kidney and ureter, unspecified Status: Acute (7) Left lower lobe pulmonary nodule: Code(s): R91.1 - Solitary pulmonary nodule Status: Acute (8) Enlarged prostate: Code(s): N40.0 - Benign prostatic hyperplasia without lower urinary tract symptoms Status: Acute (9) Abnormal liver diagnostic imaging: Code(s): R93.2 - Abnormal findings on diagnostic imaging of liver and biliary tract Status: Acute (10) Obstructive sleep apnea on CPAP: Code(s): G47.33 - Obstructive sleep apnea (adult) (pediatric); Z99.89 - Dependence on other enabling machines and devices Status: Acute (11) Chronic obstructive pulmonary disease: Code(s): J44.9 - Chronic obstructive pulmonary disease, unspecified Status: Acute (12) Paroxysmal atrial fibrillation: Code(s): I48.0 - Paroxysmal atrial fibrillation Status: Acute (13) Chronic anticoagulation: Code(s): 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 CTA of the chest, abdomen, and pelvis ruled out dissection and pulmonary embolism. A small region of consolidation noted at the medial left upper lobe is concerning for pneumonia and given his elevated white blood cell count he will be empirically started on antibiotics. Penetrating atherosclerotic ulcer along the distal abdominal aorta was noted and patient reports that he is seeing a vascular surgeon in [place] for an aneurysm though I am wondering if it is instead for this ulcer. He has rule out for acute coronary syndrome by serial troponins and his EKG does not demonstrate any acute ST segment changes. Cardiomegaly with biatrial enlargement was noted on imaging today thus will check an echocardiogram and if abnormal he will need to see Cardiology in consultation. He does have an upcoming appointment on Friday with his decating machine operator, Dr. Valentin in [place]. No evidence to suggest acute COPD exacerbation on exam today. A 5 millimeter left lower lobe nodule was noted on imaging and with his smoking history he should have a follow-up chest CT in 12 months for re-evaluation. Also noted was an 8 millimeter left kidney lesion which the radiologist recommends following up with a pre and post-contrast MRI or CT in 6 months time. Liver surface appeared somewhat nodular which could be seen with cirrhosis in this should be worked up as an outpatient. His vital signs have been stable. His home medications will be reviewed and resumed as appropr
[2022-09-27 18:20] VITALS: PULSE 76
[2022-09-27] MEDS: METOPROLOL SUCCINATE EXT REL 100 MG TABCR PO (18:20)
[2022-09-27] MEDS: PRAVASTATIN SODIUM 20 MG TABLET 40 MG PO (18:20)
[2022-09-27] MEDS: PANTOPRAZOLE 40 MG TABLET PO (18:20)
[2022-09-27 21:25] VITALS: BP 143/85; PULSE 74; RESP 18; TEMP 36.2; O2SAT 99
[2022-09-27] MEDS: MELATONIN 5 MG TABLET 10 MG PO (21:46)
[2022-09-28 04:32] VITALS: BP 131/81; PULSE 75; RESP 18; TEMP 36.4; O2SAT 96
[2022-09-28 09:20] LABS: Hematocrit 48.6 % (42.0-52.0); Hemoglobin 16.3 g/dL (14.0-18.0); Mean Corpuscular HGB Conc 33.5 g/dl (32-36); Mean Corpuscular Hemoglobin 31.2 pg (26-34); Mean Corpuscular Volume 93.1 fl (80-100); Mean Platelet Volume 9.3 fl (7.4-10.4); Platelet Count Result 245 k/mm3 (150-375); Red Blood Count 5.22 M/mm3 (4.6-6.20); Red Cell Distribution Width 14.2 % (11.5-14.5); White Blood Count 10.7 K/mm3 (4.5-10.0)
[2022-09-28] MEDS: UMECLIDINIUM BROMIDE 62.5 MCG ELLIPTA 1 PUFF INHALATION (09:27)
[2022-09-28 09:30] VITALS: O2SAT 98
[2022-09-28] MEDS: FLUTICASONE PROPIONATE 0.05% NA SPR 16 GM BTL (*BKC) 2 SPRAY NASAL (09:32)
[2022-09-28] MEDS: MONTELUKAST SODIUM 10 MG TABLET PO (09:33)
[2022-09-28] MEDS: VALSARTAN 160 MG TABLET 320 MG PO (09:33)
[2022-09-28] MEDS: OPTI-GEN TAB 1 TABLET PO (09:33)
[2022-09-28] MEDS: hydroCHLOROthiazide 25 MG TABLET PO (09:33)
[2022-09-28] MEDS: LORATADINE 10 MG TABLET PO (09:33)
[2022-09-28] MEDS: APIXABAN 5 MG TABLET PO ×2 (09:33→20:27)
[2022-09-28 09:45] LABS: Anion Gap 11 mmol/L (8-16); Blood Urea Nitrogen 21 mg/dL (9-20); Calcium 9.3 mg/dL (8.4-10.2); Carbon Dioxide 29 mmol/L (22-30); Chloride 95 mmol/L (98-107); Estimated CRCL calculation 67 ml/min; Estimated Glomerular Filt Rate > 60; Glucose 121 mg/dL (65-110); Potassium 4.3 mmol/L (3.4-5.0); Sodium 135 mmol/L (137-145)
--- NOTE | 2022-09-28 13:07 | PM.IMPN ---
Progress Note: A&P Assessment and Plan (1) Chest pain: Code(s): R07.9 - Chest pain, unspecified Status: Acute Assessment and Plan: 09/28/2022 interval history: patient presented with chest pain CT scan of the chest showed pneumonia, patient had significant elevated white count 19.0 its trending down to 10.7 today, and blood culture is growing Pseudomonas, discussed with pharmacy ID patient will need Cefepime for 14 days, will continue azithromycin to cover for atypicals, patient states states is feeling much better compared to when he arrived and chest pain is also improved. there is a possibility the patient can finish remaining antibiotics at home social service is working on the plan (2) Shortness of breath: Code(s): R06.02 - Shortness of breath Status: Acute (3) Consolidation of left upper lobe of lung: Code(s): J18.1 - Lobar pneumonia, unspecified organism Status: Acute (4) Cardiomegaly: Code(s): I51.7 - Cardiomegaly Status: Acute (5) Penetrating atherosclerotic ulcer of aorta: Code(s): I71.9 - Aortic aneurysm of unspecified site, without rupture Status: Acute (6) Lesion of left [place] kidney: Code(s): N28.9 - Disorder of kidney and ureter, unspecified Status: Acute (7) Left lower lobe pulmonary nodule: Code(s): R91.1 - Solitary pulmonary nodule Status: Acute (8) Enlarged prostate: Code(s): N40.0 - Benign prostatic hyperplasia without lower urinary tract symptoms Status: Acute (9) Abnormal liver diagnostic imaging: Code(s): R93.2 - Abnormal findings on diagnostic imaging of liver and biliary tract Status: Acute (10) Obstructive sleep apnea on CPAP: Code(s): G47.33 - Obstructive sleep apnea (adult) (pediatric); Z99.89 - Dependence on other enabling machines and devices Status: Acute (11) Chronic obstructive pulmonary disease: Code(s): J44.9 - Chronic obstructive pulmonary disease, unspecified Status: Acute (12) Paroxysmal atrial fibrillation: Code(s): I48.0 - Paroxysmal atrial fibrillation Status: Acute (13) Chronic anticoagulation: Code(s): Z79.01 - rn long term care (current) use of anticoagulants Status: Acute Plan The patient presented to the emergency department for evaluation of sharp, shooting, and ripping pain in the left mid chest region radiating to the left scapula associated with shortness of breath and mild lightheadedness. CTA of the chest, abdomen, and pelvis ruled out dissection and pulmonary embolism. A small region of consolidation noted at the medial left upper lobe is concerning for pneumonia and given his elevated white blood cell count he will be empirically started on antibiotics. Penetrating atherosclerotic ulcer along the distal abdominal aorta was noted and patient reports that he is seeing a vascular surgeon in [place] for an aneurysm though I am wondering if it is instead for this ulcer. He has rule out for acute coronary syndrome by serial troponins and his EKG does not demonstrate any acute ST segment changes. Cardiomegaly with biatrial enlargement was noted on imaging today thus will check an echocardiogram and if abnormal he will need to see Cardiology in consultation. He does have an upcoming appointment on Friday with his wiping cloth cutter, Dr. Valentin in [place]. No evidence to suggest acute COPD exacerbation on exam today. A 5 millimeter left lower lobe nodule was noted on imaging and with his smoking history he should have a follow-up chest CT in 12 months for re-evaluation. Also noted was an 8 millimeter left kidney lesion which the radiologist recommends following up with a pre and post-contrast MRI or CT in 6 months time. Liver surface appeared somewhat nodular which could be seen with cirrhosis in this should be worked up as an outpatient. His vital signs have been stable. His home medications will be reviewed and resumed as appropr
[2022-09-28 14:00] VITALS: BP 148/83; PULSE 75; RESP 20; TEMP 36.4; O2SAT 97
[2022-09-28] MEDS: AZITHROMYCIN 250 MG TABLET 500 MG PO (14:05)
[2022-09-28 18:10] VITALS: PULSE 82
[2022-09-28] MEDS: METOPROLOL SUCCINATE EXT REL 100 MG TABCR PO (18:10)
[2022-09-28] MEDS: PRAVASTATIN SODIUM 20 MG TABLET 40 MG PO (18:11)
[2022-09-28] MEDS: PANTOPRAZOLE 40 MG TABLET PO (18:11)
[2022-09-28 19:21] VITALS: BP 145/84; PULSE 70; RESP 18; TEMP 36.9; O2SAT 98
[2022-09-28 20:00] VITALS: PULSE 70; RESP 18; O2SAT 98
[2022-09-28] MEDS: MELATONIN 5 MG TABLET 10 MG PO (20:28)
[2022-09-29 04:24] VITALS: BP 160/89; PULSE 69; RESP 18; TEMP 36.6; O2SAT 97
[2022-09-29 05:48] LABS: Hematocrit 50.3 % (42.0-52.0); Hemoglobin 16.5 g/dL (14.0-18.0); Mean Corpuscular HGB Conc 32.8 g/dl (32-36); Mean Corpuscular Hemoglobin 30.6 pg (26-34); Mean Corpuscular Volume 93.1 fl (80-100); Mean Platelet Volume 9.2 fl (7.4-10.4); Platelet Count Result 273 k/mm3 (150-375); White Blood Count 12.9 K/mm3 (4.5-10.0)
[2022-09-29 06:01] LABS: Anion Gap 10 mmol/L (8-16); Blood Urea Nitrogen 26 mg/dL (9-20); Calcium 9.5 mg/dL (8.4-10.2); Carbon Dioxide 32 mmol/L (22-30); Chloride 94 mmol/L (98-107); Estimated CRCL calculation 67 ml/min; Estimated Glomerular Filt Rate > 60; Glucose 113 mg/dL (65-110); Potassium 4.2 mmol/L (3.4-5.0); Sodium 136 mmol/L (137-145)
[2022-09-29] MEDS: FLUTICASONE PROPIONATE 0.05% NA SPR 16 GM BTL (*BKC) 2 SPRAY NASAL (08:46)
[2022-09-29] MEDS: VALSARTAN 160 MG TABLET 320 MG PO (08:47)
[2022-09-29] MEDS: hydroCHLOROthiazide 25 MG TABLET PO (08:47)
[2022-09-29] MEDS: LORATADINE 10 MG TABLET PO (08:47)
[2022-09-29] MEDS: MONTELUKAST SODIUM 10 MG TABLET PO (08:47)
[2022-09-29] MEDS: OPTI-GEN TAB 1 TABLET PO (08:47)
[2022-09-29] MEDS: APIXABAN 5 MG TABLET PO ×2 (08:47→21:35)
[2022-09-29 08:50] VITALS: O2SAT 97
[2022-09-29] MEDS: UMECLIDINIUM BROMIDE 62.5 MCG ELLIPTA 1 PUFF INHALATION (08:58)
[2022-09-29 14:00] VITALS: BP 124/81; PULSE 76; RESP 20; TEMP 37; O2SAT 100
--- NOTE | 2022-09-29 14:02 | PM.IMPN ---
Progress Note: A&P Assessment and Plan (1) Chest pain: Code(s): R07.9 - Chest pain, unspecified Status: Acute Assessment and Plan: 09/29/2022 interval history: patient presented with chest pain CT scan of the chest showed pneumonia, patient had significant elevated white count 19.0 its trending down to 10.7 on 09/28 and today slightly up 12.9, and blood culture is growing Pseudomonas, discussed with pharmacy ID patient will need Cefepime for 14 days, patient completed 5 days azithromycin to cover for atypicals, patient states states is feeling much better compared to when he arrived and chest pain is also improved. there is a possibility the patient can finish remaining antibiotics at home social service is working on the plan (2) Shortness of breath: Code(s): R06.02 - Shortness of breath Status: Acute (3) Consolidation of left upper lobe of lung: Code(s): J18.1 - Lobar pneumonia, unspecified organism Status: Acute (4) Cardiomegaly: Code(s): I51.7 - Cardiomegaly Status: Acute (5) Penetrating atherosclerotic ulcer of aorta: Code(s): I71.9 - Aortic aneurysm of unspecified site, without rupture Status: Acute (6) Lesion of left [place] kidney: Code(s): N28.9 - Disorder of kidney and ureter, unspecified Status: Acute (7) Left lower lobe pulmonary nodule: Code(s): R91.1 - Solitary pulmonary nodule Status: Acute (8) Enlarged prostate: Code(s): N40.0 - Benign prostatic hyperplasia without lower urinary tract symptoms Status: Acute (9) Abnormal liver diagnostic imaging: Code(s): R93.2 - Abnormal findings on diagnostic imaging of liver and biliary tract Status: Acute (10) Obstructive sleep apnea on CPAP: Code(s): G47.33 - Obstructive sleep apnea (adult) (pediatric); Z99.89 - Dependence on other enabling machines and devices Status: Acute (11) Chronic obstructive pulmonary disease: Code(s): J44.9 - Chronic obstructive pulmonary disease, unspecified Status: Acute (12) Paroxysmal atrial fibrillation: Code(s): I48.0 - Paroxysmal atrial fibrillation Status: Acute (13) Chronic anticoagulation: Code(s): Z79.01 - [facility] (current) use of anticoagulants Status: Acute Plan The patient presented to the emergency department for evaluation of sharp, shooting, and ripping pain in the left mid chest region radiating to the left scapula associated with shortness of breath and mild lightheadedness. CTA of the chest, abdomen, and pelvis ruled out dissection and pulmonary embolism. A small region of consolidation noted at the medial left upper lobe is concerning for pneumonia and given his elevated white blood cell count he will be empirically started on antibiotics. Penetrating atherosclerotic ulcer along the distal abdominal aorta was noted and patient reports that he is seeing a vascular surgeon in [place] for an aneurysm though I am wondering if it is instead for this ulcer. He has rule out for acute coronary syndrome by serial troponins and his EKG does not demonstrate any acute ST segment changes. Cardiomegaly with biatrial enlargement was noted on imaging today thus will check an echocardiogram and if abnormal he will need to see Cardiology in consultation. He does have an upcoming appointment on Friday with his quality technician, Dr. Valentin in [place]. No evidence to suggest acute COPD exacerbation on exam today. A 5 millimeter left lower lobe nodule was noted on imaging and with his smoking history he should have a follow-up chest CT in 12 months for re-evaluation. Also noted was an 8 millimeter left kidney lesion which the radiologist recommends following up with a pre and post-contrast MRI or CT in 6 months time. Liver surface appeared somewhat nodular which could be seen with cirrhosis in this should be worked up as an outpatient. His vital signs have been stable. His home medication
[2022-09-29] MEDS: PRAVASTATIN SODIUM 20 MG TABLET 40 MG PO (18:19)
[2022-09-29 18:21] VITALS: PULSE 83
[2022-09-29] MEDS: METOPROLOL SUCCINATE EXT REL 100 MG TABCR PO (18:21)
[2022-09-29] MEDS: PANTOPRAZOLE 40 MG TABLET PO (18:22)
[2022-09-29 20:00] VITALS: PULSE 83; RESP 20; O2SAT 100
[2022-09-29] MEDS: MELATONIN 5 MG TABLET 10 MG PO (21:35)
[2022-09-29 21:58] VITALS: BP 152/80; PULSE 66; RESP 16; TEMP 36.7; O2SAT 96
[2022-09-30 05:52] VITALS: BP 122/81; PULSE 81; RESP 16; TEMP 36.7; O2SAT 100
[2022-09-30 06:15] LABS: Hematocrit 49.5 % (42.0-52.0); Hemoglobin 16.3 g/dL (14.0-18.0); Mean Corpuscular HGB Conc 32.9 g/dl (32-36); Mean Corpuscular Hemoglobin 30.8 pg (26-34); Mean Corpuscular Volume 93.4 fl (80-100); Mean Platelet Volume 9.4 fl (7.4-10.4); Platelet Count Result 287 k/mm3 (150-375); Red Cell Distribution Width 14.1 % (11.5-14.5); White Blood Count 11.3 K/mm3 (4.5-10.0)
[2022-09-30 06:26] LABS: Anion Gap 12 mmol/L (8-16); Blood Urea Nitrogen 29 mg/dL (9-20); Calcium 9.4 mg/dL (8.4-10.2); Carbon Dioxide 28 mmol/L (22-30); Chloride 95 mmol/L (98-107); Estimated CRCL calculation 67 ml/min; Estimated Glomerular Filt Rate > 60; Glucose 111 mg/dL (65-110); Potassium 4.1 mmol/L (3.4-5.0); Sodium 135 mmol/L (137-145)
[2022-09-30] MEDS: FLUTICASONE PROPIONATE 0.05% NA SPR 16 GM BTL (*BKC) 2 SPRAY NASAL (08:16)
[2022-09-30] MEDS: LORATADINE 10 MG TABLET PO (08:17)
[2022-09-30] MEDS: MONTELUKAST SODIUM 10 MG TABLET PO (08:17)
[2022-09-30] MEDS: OPTI-GEN TAB 1 TABLET PO (08:17)
[2022-09-30] MEDS: hydroCHLOROthiazide 25 MG TABLET PO (08:17)
[2022-09-30] MEDS: APIXABAN 5 MG TABLET PO ×2 (08:17→20:45)
[2022-09-30] MEDS: VALSARTAN 160 MG TABLET 320 MG PO (08:18)
[2022-09-30 08:20] VITALS: PULSE 83; RESP 18; O2SAT 98
[2022-09-30] MEDS: UMECLIDINIUM BROMIDE 62.5 MCG ELLIPTA 1 PUFF INHALATION (08:55)
[2022-09-30 14:00] VITALS: BP 152/84; PULSE 64; RESP 18; TEMP 36.4; O2SAT 96
--- NOTE | 2022-09-30 17:01 | PM.IMPN ---
Progress Note: A&P Assessment and Plan (1) Chest pain: Code(s): R07.9 - Chest pain, unspecified Status: Acute Assessment and Plan: 09/30/2022 interval history: patient presented with chest pain CT scan of the chest showed pneumonia, patient had significant elevated white count 19.0 its trending down to 10.7 on 09/28 and on 09/29 slightly up 12.9, and today is backdown to 11.3 and blood culture is growing Pseudomonas, discussed with pharmacy ID patient will need Cefepime for 14 days, patient completed 5 days azithromycin to cover for atypicals, patient states states is feeling much better compared to when he arrived and chest pain is also improved. today patient had a PICC line placed, there is a possibility the patient can finish remaining antibiotics at home social service is working on the plan (2) Shortness of breath: Code(s): R06.02 - Shortness of breath Status: Acute (3) Consolidation of left upper lobe of lung: Code(s): J18.1 - Lobar pneumonia, unspecified organism Status: Acute (4) Cardiomegaly: Code(s): I51.7 - Cardiomegaly Status: Acute (5) Penetrating atherosclerotic ulcer of aorta: Code(s): I71.9 - Aortic aneurysm of unspecified site, without rupture Status: Acute (6) Lesion of left [place] kidney: Code(s): N28.9 - Disorder of kidney and ureter, unspecified Status: Acute (7) Left lower lobe pulmonary nodule: Code(s): R91.1 - Solitary pulmonary nodule Status: Acute (8) Enlarged prostate: Code(s): N40.0 - Benign prostatic hyperplasia without lower urinary tract symptoms Status: Acute (9) Abnormal liver diagnostic imaging: Code(s): R93.2 - Abnormal findings on diagnostic imaging of liver and biliary tract Status: Acute (10) Obstructive sleep apnea on CPAP: Code(s): G47.33 - Obstructive sleep apnea (adult) (pediatric); Z99.89 - Dependence on other enabling machines and devices Status: Acute (11) Chronic obstructive pulmonary disease: Code(s): J44.9 - Chronic obstructive pulmonary disease, unspecified Status: Acute (12) Paroxysmal atrial fibrillation: Code(s): I48.0 - Paroxysmal atrial fibrillation Status: Acute (13) Chronic anticoagulation: Code(s): 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 CTA of the chest, abdomen, and pelvis ruled out dissection and pulmonary embolism. A small region of consolidation noted at the medial left upper lobe is concerning for pneumonia and given his elevated white blood cell count he will be empirically started on antibiotics. Penetrating atherosclerotic ulcer along the distal abdominal aorta was noted and patient reports that he is seeing a vascular surgeon in [place] for an aneurysm though I am wondering if it is instead for this ulcer. He has rule out for acute coronary syndrome by serial troponins and his EKG does not demonstrate any acute ST segment changes. Cardiomegaly with biatrial enlargement was noted on imaging today thus will check an echocardiogram and if abnormal he will need to see Cardiology in consultation. He does have an upcoming appointment on Friday with his service delivery supervisor, Dr. Valentin in [place]. No evidence to suggest acute COPD exacerbation on exam today. A 5 millimeter left lower lobe nodule was noted on imaging and with his smoking history he should have a follow-up chest CT in 12 months for re-evaluation. Also noted was an 8 millimeter left kidney lesion which the radiologist recommends following up with a pre and post-contrast MRI or CT in 6 months time. Liver surface appeared somewhat nodular which could be seen with cirrhosis in this should be worked up
[2022-09-30] MEDS: PRAVASTATIN SODIUM 20 MG TABLET 40 MG PO (17:55)
[2022-09-30 17:56] VITALS: PULSE 81
[2022-09-30] MEDS: PANTOPRAZOLE 40 MG TABLET PO (17:56)
[2022-09-30] MEDS: METOPROLOL SUCCINATE EXT REL 100 MG TABCR PO (17:56)
[2022-09-30] MEDS: MELATONIN 5 MG TABLET 10 MG PO (20:44)
[2022-09-30] MEDS: CENTRAL LINE FLUSH 10 ML IV PUSH (20:45)
[2022-09-30 21:14] VITALS: BP 134/70; PULSE 68; RESP 16; TEMP 36.7; O2SAT 100
[2022-10-01] MEDS: CENTRAL LINE FLUSH 10 ML IV PUSH ×2 (05:17→13:49)
[2022-10-01 05:45] LABS: Hematocrit 48.7 % (42.0-52.0); Hemoglobin 16.1 g/dL (14.0-18.0); Mean Corpuscular HGB Conc 33.1 g/dl (32-36); Mean Corpuscular Hemoglobin 30.7 pg (26-34); Mean Corpuscular Volume 92.9 fl (80-100); Mean Platelet Volume 9.3 fl (7.4-10.4); Platelet Count Result 293 k/mm3 (150-375); Red Blood Count 5.24 M/mm3 (4.6-6.20); Red Cell Distribution Width 13.8 % (11.5-14.5); White Blood Count 10.7 K/mm3 (4.5-10.0)
[2022-10-01 05:56] VITALS: BP 135/76; PULSE 68; RESP 16; TEMP 36.7; O2SAT 100
[2022-10-01 06:02] LABS: Anion Gap 14 mmol/L (8-16); Blood Urea Nitrogen 30 mg/dL (9-20); Calcium 9.2 mg/dL (8.4-10.2); Carbon Dioxide 27 mmol/L (22-30); Chloride 94 mmol/L (98-107); Estimated CRCL calculation 67 ml/min; Estimated Glomerular Filt Rate > 60; Glucose 116 mg/dL (65-110); Potassium 4.3 mmol/L (3.4-5.0); Sodium 135 mmol/L (137-145)
[2022-10-01 08:00] VITALS: PULSE 68; RESP 16; O2SAT 100
[2022-10-01] MEDS: FLUTICASONE PROPIONATE 0.05% NA SPR 16 GM BTL (*BKC) 2 SPRAY NASAL (08:15)
[2022-10-01] MEDS: hydroCHLOROthiazide 25 MG TABLET PO (08:15)
[2022-10-01] MEDS: APIXABAN 5 MG TABLET PO (08:15)
[2022-10-01] MEDS: VALSARTAN 160 MG TABLET 320 MG PO (08:15)
[2022-10-01] MEDS: OPTI-GEN TAB 1 TABLET PO (08:15)
[2022-10-01] MEDS: LORATADINE 10 MG TABLET PO (08:15)
[2022-10-01] MEDS: MONTELUKAST SODIUM 10 MG TABLET PO (08:15)
--- NOTE | 2022-10-01 09:02 | PM.DS ---
DS: Admitting Diagnosis Discharge Date 10/01/2022 Admitting Diagnosis Chest pain and shortness of breath. DS: Discharge Diagnosis Discharge Diagnosis (1) Chest pain: Code(s): R07.9 - Chest pain, unspecified Status: Acute Assessment and Plan: 09/30/2022 interval history: patient presented with chest pain CT scan of the chest showed pneumonia, patient had significant elevated white count 19.0 its trending down to 10.7 on 09/28 and on 09/29 slightly up 12.9, and today is backdown to 11.3 and blood culture is growing Pseudomonas, discussed with pharmacy ID patient will need Cefepime for 14 days, patient completed 5 days azithromycin to cover for atypicals, patient states states is feeling much better compared to when he arrived and chest pain is also improved. today patient had a PICC line placed, there is a possibility the patient can finish remaining antibiotics at home social service is working on the plan (2) Shortness of breath: Code(s): R06.02 - Shortness of breath Status: Acute (3) Consolidation of left upper lobe of lung: Code(s): J18.1 - Lobar pneumonia, unspecified organism Status: Acute (4) Cardiomegaly: Code(s): I51.7 - Cardiomegaly Status: Acute (5) Penetrating atherosclerotic ulcer of aorta: Code(s): I71.9 - Aortic aneurysm of unspecified site, without rupture Status: Acute (6) Lesion of left [place] kidney: Code(s): N28.9 - Disorder of kidney and ureter, unspecified Status: Acute (7) Left lower lobe pulmonary nodule: Code(s): R91.1 - Solitary pulmonary nodule Status: Acute (8) Enlarged prostate: Code(s): N40.0 - Benign prostatic hyperplasia without lower urinary tract symptoms Status: Acute (9) Abnormal liver diagnostic imaging: Code(s): R93.2 - Abnormal findings on diagnostic imaging of liver and biliary tract Status: Acute (10) Obstructive sleep apnea on CPAP: Code(s): G47.33 - Obstructive sleep apnea (adult) (pediatric); Z99.89 - Dependence on other enabling machines and devices Status: Acute (11) Chronic obstructive pulmonary disease: Code(s): J44.9 - Chronic obstructive pulmonary disease, unspecified Status: Acute (12) Paroxysmal atrial fibrillation: Code(s): I48.0 - Paroxysmal atrial fibrillation Status: Acute (13) Chronic anticoagulation: Code(s): Z79.01 - [employer]modal 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 CTA of the chest, abdomen, and pelvis ruled out dissection and pulmonary embolism. A small region of consolidation noted at the medial left upper lobe is concerning for pneumonia and given his elevated white blood cell count he will be empirically started on antibiotics. Penetrating atherosclerotic ulcer along the distal abdominal aorta was noted and patient reports that he is seeing a vascular surgeon in [place] for an aneurysm though I am wondering if it is instead for this ulcer. He has rule out for acute coronary syndrome by serial troponins and his EKG does not demonstrate any acute ST segment changes. Cardiomegaly with biatrial enlargement was noted on imaging today thus will check an echocardiogram and if abnormal he will need to see Cardiology in consultation. He does have an upcoming appointment on Friday with his ball thread machine tender, Dr. Valentin in [place]. No evidence to suggest acute COPD exacerbation on exam today. A 5 millimeter left lower lobe nodule was noted on imaging and with his smoking history he should have a follow-up chest CT in 12 months for re-evaluation. Also noted was an 8 millimeter left kidney lesion which the radiologist recommends following up with a pre and post-contrast MRI or CT in 6
--- NOTE | 2022-10-01 13:50 | PCNWS ---
Weekly nutritional screen. Patient is tolerating current diet with adequate intake. No weight loss reported. No nutritional needs at this time.
== END 2022-10-01 14:15 | disposition home health service (06) | DRG 194 ==
LOC: ANHED 09:55 → ANHIMU 10:51 → ANH3MED 09-25 22:29
PROVIDERS: Emergency Medicine; Physician Assistant; Admitting Provider Internal Medicine; Emergency Provider Emergency Medicine; PCP Internal Medicine; Visit Provider Family Medicine
DX: J18.1 Lobar pneumonia, unspecified organism (principal); J44.0 Chronic obstructive pulmonary disease with (acute) lower respiratory infection; Z20.822 Contact with and (suspected) exposure to COVID-19; I51.7 Cardiomegaly; N28.9 Disorder of kidney and ureter, unspecified; R91.1 Solitary pulmonary nodule; N40.0 Benign prostatic hyperplasia without lower urinary tract symptoms; R93.2 Abnormal findings on diagnostic imaging of liver and biliary tract; B96.5 Pseudomonas (aeruginosa) (mallei) (pseudomallei) as the cause of diseases classified elsewhere; G47.33 Obstructive sleep apnea (adult) (pediatric); I48.0 Paroxysmal atrial fibrillation; I10 Essential (primary) hypertension; E78.5 Hyperlipidemia, unspecified; K21.9 Gastro-esophageal reflux disease without esophagitis; M48.00 Spinal stenosis, site unspecified; F41.9 Anxiety disorder, unspecified; M19.90 Unspecified osteoarthritis, unspecified site; I70.0 Atherosclerosis of aorta; Z79.01 Long term (current) use of anticoagulants; Z87.891 Personal history of nicotine dependence; Z98.42 Cataract extraction status, left eye; Z98.41 Cataract extraction status, right eye
CPT/HCPCS: 36415; 36569; 36600; 71275; 74174; 80048; 80053; 82805; 83605; 83690; 83735; 83880; 84145; 84443; 84484; 85025; 85027; 85610; 85730; 86850; 86900; 86901; 87040; 87077; 87186; 87502; 93005; 94002; 94640; 96365; 96367; 96375; 99285; A9270; C1751; C8929; J0456; J0692; J0696; J2270; Q9957; Q9967; U0003; U0005

== ENCOUNTER 2022-10-07 13:25 | Outpatient (RCR) | payer MEDICARE, SELFPAY ==
[2022-10-07 13:41] LABS: Anion Gap 15 mmol/L (8-16); Blood Urea Nitrogen 25 mg/dL (9-20); Calcium 9.1 mg/dL (8.4-10.2); Carbon Dioxide 27 mmol/L (22-30); Chloride 98 mmol/L (98-107); Estimated Glomerular Filt Rate > 60; Glucose 94 mg/dL (65-110); Potassium 4.4 mmol/L (3.4-5.0); Sodium 140 mmol/L (137-145)
[2022-10-07 14:16] LABS: Basophils Absolute Auto 0.2 K/mm3 (0.0-0.1); Basophils Percent Auto 1.6 % (0.2-1.2); Eosinophils Absolute Auto 0.3 K/mm3 (0-0.3); Eosinophils Percent Auto 3.7 % (0-4.4); Hemoglobin 15.2 g/dL (14.0-18.0); Immature Granulocyte Absolute 0.03 K/mm3 (0.00-0.031); Immature Granulocyte Percent A 0.3 % (0-0.5); Lymphocytes Absolute Auto 1.55 K/mm3 (0.9-3.2); Lymphocytes Percent Auto 16.9 % (18.3-44.2); Mean Corpuscular HGB Conc 32.3 g/dl (32-36); Mean Corpuscular Hemoglobin 30.9 pg (26-34); Mean Corpuscular Volume 95.5 fl (80-100); Mean Platelet Volume 9.3 fl (7.4-10.4); Monocytes Absolute Auto 0.9 K/mm3 (0.1-0.6); Monocytes Percent Auto 9.6 % (2.6-8.5); Neutrophils Absolute Auto 6.2 K/mm3 (1.3-6.7); Neutrophils Percent Auto 67.9 % (45.5-73.1); Platelet Count Result 269 k/mm3 (150-375); Red Blood Count 4.92 M/mm3 (4.6-6.20); Red Cell Distribution Width 13.9 % (11.5-14.5); White Blood Count 9.2 K/mm3 (4.5-10.0)
== END 2023-01-05 23:59 | disposition home or self-care (01) ==
LOC: HOME HLTH 13:25
PROVIDERS: PCP Internal Medicine; Visit Provider Internal Medicine
DX: J18.9 Pneumonia, unspecified organism (principal); J44.9 Chronic obstructive pulmonary disease, unspecified; I51.7 Cardiomegaly; I71.9 Aortic aneurysm of unspecified site, without rupture
CPT/HCPCS: 80048; 85025

== ENCOUNTER 2023-08-14 17:27 | Inpatient (IN) | payer MEDICARE, SELFPAY ==
[2023-08-14] VITALS (7 sets, daily range): BP systolic 110–149; BP diastolic 55–75; PULSE 75–92; RESP 12–27; O2SAT 93–99
--- NOTE | ~2023-08-14 | XR_ITS ---
EXAMINATION: XR chest 1V portable INDICATION: Altered mental status, COVID 19 positive TECHNIQUE: Portable AP chest at 1751 hours COMPARISON: 09/30/2022 FINDINGS: There are minimal interstitial and airspace opacities of the mid and lower lung zones. No p leural effusion or pneumothorax. The cardiomediastinal silhouette is normal. IMPRESSION: 1. Interstitial and airspace opacities of the mid and lower lung zones, consistent with pneumonia and /or pulmonary edema. Reviewed, dictated and finalized at location F. IMPRESSION: 1. Interstitial and airspace opacities of the mid and lower lung zones, consist ent with pneumonia and/or pulmonary edema.
--- NOTE | ~2023-08-14 | CT_ITS ---
EXAMINATION: CTA chest DATE: 08/14/2023 22:05 INDICATION: Chest pain and shortness of breath TECHNIQUE: Computed tomographic angiography (CTA) of the chest was performed with 100 mL Omnipque-350 intravenous contrast. Maximum intensity projection 3D-reconstructions of the aorta and other arterie s were constructed by the technologist on a separate workstation. The dose-length product (DLP) was 9 08.11 mGy-cm. Automated exposure control and iterative reconstruction technique were employed. COMPARISON: 09/24/2022 FINDINGS: No aneurysm or dissection of the thoracic aorta. No pulmonary embolus identified. There is mild emphysema. There is mild atelectasis of the lingula. The lungs are free of focal airspace opacit ies. No pleural effusion or pneumothorax. No pathologically enlarged thoracic lymph nodes are identif ied. The heart size is normal. There are bridging osteophytes at multiple levels in the spine, consis tent with diffuse idiopathic skeletal hyperostosis (DISH). IMPRESSION: 1. No aneurysm or dissection of the thoracic aorta. 2. No acute cardiopulmonary abnormality. Reviewed, dictated and finalized at location F.
--- NOTE | 2023-08-14 17:38 | ECG_ITS ---
Measurements Intervals [place] Rate: 84 P: [place]: 0 QRS: -57 QRSD: 92 T: 60 QT: 358 QTc: 425 Interpretive Statements ATRIAL FIBRILLATION FREQUENT VENTRICULAR PREMATURE COMPLEXES LEFT AXIS DEVIATION INCOMPLETE RIGHT BUNDLE BRANCH BLOCK BORDERLINE R WAVE PROGRESSION, ANTERIOR LEADS CONSIDER INFERIOR INFARCT, AGE INDETERMINATE BORDERLINE ST-T WAVE ABNORMALITY- ANTEROLAT/HIGH LAT LEADS ABNORMAL ECG COMPARED TO ECG 09/24/2022 06:00:18 NO SIGNIFICANT CHANGES Electronically Signed On 08-14-2023 18:49:40 CDT by Mahad Chaudhari D.O.
--- NOTE | 2023-08-14 18:04 | ED.GENADULT ---
HPI - General Adult General Chief complaint: Upper Respiratory Infection Stated complaint: covid/cough/diff breathing Time Seen by Provider: 08/14/23 17:32 History of Present Illness HPI narrative: Patient is a 78-year-old male who presents ER with reports of COVID illness. Reports he began feeling unwell yesterday evening and today called his primary care doctor. He took a COVID test and afterwards he was told that he should come to the ER for further evaluation since it was positive. He says at that time he developed some chest discomfort. He had no prior chest discomfort until finding out he was COVID-positive. This could be related to anxiety. Patient however is only oriented to self/place/month. He is not oriented to the year and has difficulty giving any additional history. Cannot describe his chest discomfort. Denies radiation. Related Data Home Medications Medication Instructions Recorded Confirmed acetaminophen 650 mg tablet 650 mg PO Q4H PRN Pain 09/24/22 09/24/22 alprazolam 0.25 mg tablet 0.25 mg PO HS PRN Anxiety 09/24/22 09/24/22 apixaban 5 mg tablet (Eliquis) 5 mg PO Q12H 09/24/22 09/24/22 diphenhydramine HCl 25 mg capsule 25 mg PO TID PRN Itching 09/24/22 09/24/22 (Benadryl) fluticasone propionate 50 2 spray intranasal DAILY 09/24/22 09/24/22 mcg/actuation nasal spray,suspension loratadine 10 mg tablet (Claritin) 10 mg PO DAILY 09/24/22 09/24/22 melatonin 10 mg tablet 10 mg PO HS 09/24/22 09/24/22 metoprolol succinate 100 mg 100 mg PO QPM 09/24/22 09/24/22 tablet,extended release 24 hr montelukast 10 mg tablet 10 mg PO DAILY 09/24/22 09/24/22 qunchdzd-ux-kgeas 300 mcg-K 60 1 tablet PO DAILY 09/24/22 09/24/22 mcg-lycop 600 mcg-lutein 300 mcg tablet (Centrum Silver Men) pantoprazole 40 mg tablet,delayed 40 mg PO QPM 09/24/22 09/24/22 release pravastatin 40 mg tablet 40 mg PO QPM 09/24/22 09/24/22 valsartan 320 1 tablet PO DAILY 09/24/22 09/24/22 mg-hydrochlorothiazide 25 mg tablet tiotropium bromide 2.5 2 puff inhalation DAILY 09/25/22 09/25/22 mcg/actuation mist for inhalation (Spiriva Respimat) Allergies Allergy/AdvReac Type Severity Reaction Status Date / Time nirmatrelvir AdvReac Insomnia Verified 09/24/22 12:51 [From Paxlovid (EUA)] ritonavir AdvReac Insomnia Verified 09/24/22 12:51 [From Paxlovid (EUA)] Review of Systems Review of Systems: ROS unobtainable: Yes unobtainable due to medical condition Constitutional: Constitutional: Reports chills, Reports fatigue and Reports fever(s) ENT: Denies nasal congestion and Denies sore throat Cardiovascular: Cardiovascular: Reports chest pain and Denies rapid heart rate Respiratory: Respiratory: Reports cough, Reports dyspnea and Denies wheezing Gastrointestinal: Gastrointestinal: Denies abdominal pain, Denies diarrhea, Denies nausea and Denies vomiting Musculoskeletal: Musculoskeletal: Denies back pain, Denies arthralgias and Denies joint swelling [facility] Past Medical History Medical History (Updated 08/14/23 @ 22:23 by Jhonny Haile MD) Anxiety Aortic aneurysm Being monitored by a vascular surgeon in [place]. 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 No aneurysm. Arthritis Chronic anticoagulation Chronic obstructive pulmonary disease Obstructive sleep apnea on CPAP Paroxysmal atrial fibrillation Spinal stenosis Surgical History Surgical History (Updated 09/24/22 @ 21:11 by Katya Ponce PA-C) History of bilateral cataract extraction History of cardiac radiofrequency ablation Family History Family History Father Heart problem Lung cancer Hernia Sibling Heart problem Family history of heart disease in male family member before age 55 Breast cancer Uterine cancer Mother Hypertension Diabetes mellitus Anemia Social History Social History (Updated 09/24/22 @
[2023-08-14 18:41] LABS: Influenza A QL RT-PCR Negative (Negative); Influenza B QL RT-PCR Negative (Negative); SARS-CoV-2 RNA PCR Positive (Negative)
[2023-08-14 19:45] LABS: Basophils Absolute Auto 0.1 K/mm3 (0.0-0.1); Basophils Percent Auto 0.5 % (0.2-1.2); Hematocrit 52.1 % (42.0-52.0); Immature Granulocyte Absolute 0.05 K/mm3 (0.00-0.031); Immature Granulocyte Percent A 0.3 % (0-0.5); Lymphocytes Absolute Auto 0.91 K/mm3 (0.9-3.2); Mean Corpuscular HGB Conc 32.6 g/dl (32-36); Mean Corpuscular Volume 97.9 fl (80-100); Mean Platelet Volume 9.3 fl (7.4-10.4); Monocytes Absolute Auto 1.2 K/mm3 (0.1-0.6); Neutrophils Absolute Auto 12.8 K/mm3 (1.3-6.7); Neutrophils Percent Auto 85.2 % (45.5-73.1); Platelet Count Result 200 k/mm3 (150-375); Red Blood Count 5.32 M/mm3 (4.6-6.20); Red Cell Distribution Width 14.6 % (11.5-14.5); White Blood Count 15.1 K/mm3 (4.5-10.0)
[2023-08-14 19:56] LABS: INR 1.2; Partial Thromboplastin Time 26.4 SECONDS (22.3-36.8); Prothrombin Time 15.8 Seconds (11.1-14.7)
[2023-08-14] MEDS: ACETAMINOPHEN 325 MG TABLET 650 MG PO (20:10)
[2023-08-14 21:42] LABS: Alanine Aminotransferase 24 U/L (6-50); Albumin Level 3.9 g/dL (3.5-5.1); Alkaline Phosphatase 46 U/L (38-126); Anion Gap 9 mmol/L (8-16); Aspartate Amino Transferase 29 U/L (17-59); Blood Urea Nitrogen 23 mg/dL (9-20); Calcium 8.6 mg/dL (8.4-10.2); Carbon Dioxide 29 mmol/L (22-30); Chloride 97 mmol/L (98-107); Estimated CRCL calculation 73 ml/min; Estimated Glomerular Filt Rate > 60; Glucose 113 mg/dL (65-110); NT Pro B Type Natriuretic Pept 6690 pg/mL (19.9-100); Potassium 3.8 mmol/L (3.4-5.0); Sodium 135 mmol/L (137-145); Troponin I 0.047 ng/mL (0.000-0.034)
[2023-08-15] VITALS (14 sets, daily range): BP systolic 108–159; BP diastolic 54–109; PULSE 75–97; RESP 12–22; TEMP 36.6–37.4; O2SAT 91–100; BMI 33.0
--- NOTE | 2023-08-15 | ECHO_ITS ---
Patient Info Name: Billy Russ Age: 78 years : 1945 Gender: Male Ht: 73 in Wt: 249 lbs BSA: 2.44 m2 HR: 75 bpm BP: 108 / 54 mmHg Heart Rhythm: Atrial Fibrillation Technical Quality: Fair Exam Date: 08/15/2023 4:26 PM Exam Location: [facility] Card Pulmonary Patient Status: Inpatient Admit Date: 08/15/2023 Staff Ordering Physician: Jen Pool PA-C Technical Business Analyst: Terra Greene RDCS Attending Provider: Carmen Panda MD Referring Physician: Yrn MORALES; Exam Type: CA echo dop color flow w con Study Info Indications - elevated trop and bnp Complete two-dimensional, color flow and Doppler transthoracic echocardiogram is performed with contrast to opacify the left ventricle and to improve the deliniation of the left ventricle endocardial borders. Contrast/Agitated Saline Contrast/Ag. Saline: Definity Amount: 3.00 ml Administered By: Terra Greene RDCS Existing IV Access: Yes IV Access Condition: patent with no signs of infiltration Summary 1. Left ventricular chamber dimension is normal. 2. Left ventricular systolic function is normal, estimated at 55-60%. 3. There is mildly increased left ventricular wall thickness. 4. The left ventricular diastolic function is abnormal. 5. Left atrial chamber dimension is severely enlarged. 6. Right atrial chamber dimension is moderately enlarged. 7. There is mild mitral valve regurgitation. 8. There is mild tricuspid valve regurgitation. Left Ventricle Left ventricular chamber dimension is normal. Left ventricular systolic function is normal, estimated at 55-60%. There is mildly increased left ventricular wall thickness. The left ventricular diastolic function is abnormal. Right Ventricle Right ventricular chamber dimension is normal. Right ventricular systolic function is normal. Left Atria Left atrial chamber dimension is severely enlarged. Right Atria Right atrial chamber dimension is moderately enlarged. Atrial Septum Intact interatrial septum visualized by color flow imaging. Aortic Valve The aortic valve is trileaflet. There is mild aortic valve sclerosis. There is no aortic valve stenosis. There is trace aortic valve regurgitation. Pulmonic Valve The pulmonic valve is normal. There is no pulmonic valve stenosis. There is trace pulmonic regurgitation. Mitral Valve The mitral valve has normal leaflets. There is no mitral valve stenosis. There is mild mitral valve regurgitation. Tricuspid Valve The tricuspid valve leaflets are normal. There is no significant tricuspid valve stenosis. There is mild tricuspid valve regurgitation. No pulmonary hypertension, estimated pulmonary arterial systolic pressure is 32 mmHg. Pericardium/Pleural The pericardium appears normal. There is no pericardial effusion. Inferior Vena Cava Normal inferior vena cava with >50% collapse upon inspiration consistent with normal right atrial pressure, 10 mmHg. Aorta The aortic root size at the sinus of Valsalva is normal. Left Ventricular Outflow Tract Name Value Normal LVOT 2D LVOT Diameter 2.22 cm LVOT Doppler LVOT Peak Gradient 2 mmHg LVOT M
--- NOTE | 2023-08-15 00:29 | ADMGEN ---
This patient, Billy Russ, was admitted to IMU Room 231-01. Patient/family oriented to hospital policies and general routines including ID bracelet, bed and alarms, visiting hours, pain management, procedures, bathroom and other care routines, personal items, smoking policy, room service/diet, and visiting hours. Information on how to activate the Rapid Response Team has been discussed. Patient/Family are encouraged to report perceived risks to care and to ask questions if they do not understand what they are told or what they should do.
[2023-08-15] MEDS: HYDROcodone/acetaminophen (*CRX) 5-325 MG TABLET 1 TAB PO ×2 (00:56→09:15)
[2023-08-15] MEDS: SALINE 0.65% NAS SOLN 44 ML BTL 1 SPRAY NASAL (00:56)
[2023-08-15 03:05] LABS: Troponin I 0.065 ng/mL (0.000-0.034)
[2023-08-15] MEDS: FUROSEMIDE INJ 40 MG/4 ML VIAL IV PUSH ×2 (08:58→21:52)
[2023-08-15] MEDS: MONTELUKAST SODIUM 10 MG TABLET PO ×2 (08:58→21:52)
[2023-08-15] MEDS: LORATADINE 10 MG TABLET PO (08:58)
[2023-08-15] MEDS: APIXABAN 5 MG TABLET PO ×2 (08:58→21:52)
[2023-08-15] MEDS: REMDESIVIR 200 MG/NS 250 ML 200 MG/250 ML BAG 250 MG IVPB (08:59)
[2023-08-15] MEDS: hydroCHLOROthiazide 25 MG TABLET PO (08:59)
[2023-08-15 09:10] LABS: Hematocrit 51.4 % (42.0-52.0); Hemoglobin 16.4 g/dL (14.0-18.0); Mean Corpuscular HGB Conc 31.9 g/dl (32-36); Mean Corpuscular Hemoglobin 33.1 pg (26-34); Mean Corpuscular Volume 103.8 fl (80-100); Mean Platelet Volume 9.7 fl (7.4-10.4); Platelet Count Result 154 k/mm3 (150-375); Red Blood Count 4.95 M/mm3 (4.6-6.20); Red Cell Distribution Width 14.8 % (11.5-14.5)
[2023-08-15 09:14] LABS: Alanine Aminotransferase 24 U/L (6-50); Estimated CRCL calculation 79 ml/min; Estimated Glomerular Filt Rate > 60
[2023-08-15] MEDS: VALSARTAN 160 MG TABLET 320 MG PO (09:16)
[2023-08-15 09:21] LABS: INR 1.3; Prothrombin Time 16.3 Seconds (11.1-14.7)
[2023-08-15 09:41] LABS: Troponin I 0.062 ng/mL (0.000-0.034)
[2023-08-15 11:20] LABS: Alanine Aminotransferase 26 U/L (6-50); Albumin Level 4.3 g/dL (3.5-5.1); Alkaline Phosphatase 48 U/L (38-126); Anion Gap 6 mmol/L (8-16); Aspartate Amino Transferase 42 U/L (17-59); Blood Urea Nitrogen 24 mg/dL (9-20); Calcium 8.8 mg/dL (8.4-10.2); Carbon Dioxide 31 mmol/L (22-30); Chloride 97 mmol/L (98-107); Estimated CRCL calculation 66 ml/min; Estimated Glomerular Filt Rate > 60; Glucose 143 mg/dL (65-110); Potassium 3.9 mmol/L (3.4-5.0); Sodium 134 mmol/L (137-145)
--- NOTE | 2023-08-15 11:34 | PM.IMHP ---
H&P: HPI History of Present Illness Date/Time: 08/15/23 11:34 Chief Complaint: COVID-19 Narrative: This is a 78-year-old male with a past medical history of AFib on anticoagulation, hypertension, hyperlipidemia, COPD and GERD that presented to the ED on 08/14/2023 due to persistent cough and testing positive for COVID-19 at home. Due to patient's history lung disease he thought it would be best to be evaluated in the ED. While in the ED he was found to have low oxygen saturation and was put on 2 L of supplemental oxygen. He was started on Decadron in the ED. patient states that he had family recently visit and 1 of the family members was very ill and he believes that that is where he got COVID from. Patient states that his has also tested positive at home. He denies ever having a fever. He stated in the ED that he did have some chest discomfort and they ran troponins which were mildly elevated but remained flat. When discussing with him he states that he does not have any chest pain or discomfort but does have some back pain that he believes is from coughing. He denies any production to his cough and states that it is been dry. He does use inhalers at home regularly. He is a former smoker of 20 years and quit in 2000. He also has a history of CHF but is not on any medications for this. BNP was elevated to 6600. Echocardiogram ordered. Remdesivir started due to patient's oxygen demands and history of pulmonary disorder. Patient admitted as an inpatient to the IMU under close observation for COVID-19, hypoxia and elevated troponin. [facility] Past Medical History Medical History (Updated 08/15/23 @ 12:06 by Jen Pool PA-C) Anxiety Aortic aneurysm Being monitored by a vascular surgeon in [place]. 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 No aneurysm. Arthritis Chronic anticoagulation Chronic obstructive pulmonary disease Congestive heart failure (CHF) Hypertension Obstructive sleep apnea on CPAP Paroxysmal atrial fibrillation Spinal stenosis Surgical History Surgical History History of bilateral cataract extraction History of cardiac radiofrequency ablation Family History Family History Father Heart problem Lung cancer Hernia Sibling Heart problem Family history of heart disease in male family member before age 55 Breast cancer Uterine cancer Mother Hypertension Diabetes mellitus Anemia Social History Social History (Updated 09/24/22 @ 21:26 by Katya Ponce PA-C) Social History: Surrogate medical decision maker: Maria D Russ, spouse. Code status: Full code. Smoking packs per day: 1 Smoking cigarettes per day: 20.0 Years smoked: 33 Smoking pack-years: 33.00 Smoking status: Former smoker Tobacco type: cigarettes Alcohol intake: never Drinks per week: 1 Substance use: never Substance use type: does not use Lack of Transportation: No Lack of Food: Never True Current Housing: I Have Housing Concerned About Future Housing: No Difficulty Paying Gas/Electric Bills: No Difficulty Paying for Meds: No Currently Unemployed: No Education: Bachelor's Degree Difficulty w/ Childcare or Family Care: No Spiritual care concerns: No Meds Home Medications and Allergies Home Medications Medication Instructions Recorded Confirmed Type acetaminophen 650 mg tablet 650 mg PO Q4H PRN Pain (Scale 09/24/22 08/15/23 History Score 1-3) alprazolam 0.25 mg tablet 0.25 mg PO HS PRN Anxiety 09/24/22 08/15/23 History apixaban 5 mg tablet (Eliquis) 5 mg PO Q12H 09/24/22 08/15/23 History diphenhydramine HCl 25 mg capsule 25 mg PO TID PRN Itching 09/24/22 08/15/23 History (Benadryl) fluticasone propionate 50 2 spray intranasal DAILY 09/24/22 08/15/23 History mcg/actuation nasal spr
[2023-08-15] MEDS: PERFLUTREN LIPID MICROSPHERES 1.5 ML VIAL DILUTED TO 10 ML TOTAL VOLUME IV PUSH (17:00)
--- NOTE | 2023-08-15 17:22 | IVDEFINITY ---
Prior to administration of IV Definity the patient was educated on the risks and benefits of the imaging enhancing agent including potential adverse side effects. The patient verbalized understanding. Allergies were verified. No exclusion criteria were identified and at least one of the following inclusion criteria were met: 1) physician request, 2) patient technically difficult to image (per the [place] [employer] guidelines of two or more segments not discernable within the apical view), or 3) questionable left ventricular function. ?
[2023-08-15] MEDS: PANTOPRAZOLE 40 MG TABLET PO (18:33)
[2023-08-15] MEDS: PRAVASTATIN SODIUM 20 MG TABLET 40 MG PO (18:33)
[2023-08-15] MEDS: METOPROLOL SUCCINATE EXT REL 100 MG TABCR PO (18:33)
[2023-08-15] MEDS: ALBUTEROL SULFATE (*SP) AEROSOL 1 PUFF 2 PUFF INHALATION (20:54)
[2023-08-15] MEDS: MELATONIN 5 MG TABLET 10 MG PO (21:52)
[2023-08-16] VITALS (17 sets, daily range): BP systolic 141–178; BP diastolic 82–96; PULSE 60–124; RESP 16–20; TEMP 36.4–37; O2SAT 93–99
[2023-08-16] MEDS: ALBUTEROL SULFATE (*SP) AEROSOL 1 PUFF 2 PUFF INHALATION ×3 (02:18→19:34)
[2023-08-16 05:42] LABS: Basophils Percent Auto 0.1 % (0.2-1.2); Hemoglobin 17.6 g/dL (14.0-18.0); Immature Granulocyte Absolute 0.28 K/mm3 (0.00-0.031); Lymphocytes Percent Auto 7.2 % (18.3-44.2); Mean Corpuscular HGB Conc 33.8 g/dl (32-36); Mean Corpuscular Hemoglobin 32.1 pg (26-34); Mean Corpuscular Volume 94.9 fl (80-100); Mean Platelet Volume 8.9 fl (7.4-10.4); Monocytes Percent Auto 7.1 % (2.6-8.5); Neutrophils Absolute Auto 11.6 K/mm3 (1.3-6.7); Neutrophils Percent Auto 83.6 % (45.5-73.1); Platelet Count Result 206 k/mm3 (150-375); Red Blood Count 5.48 M/mm3 (4.6-6.20); Red Cell Distribution Width 13.8 % (11.5-14.5); White Blood Count 13.9 K/mm3 (4.5-10.0)
[2023-08-16 05:53] LABS: INR 1.4
[2023-08-16 05:56] LABS: Alanine Aminotransferase 33 U/L (6-50); Albumin Level 4.4 g/dL (3.5-5.1); Alkaline Phosphatase 51 U/L (38-126); Anion Gap 8 mmol/L (8-16); Aspartate Amino Transferase 50 U/L (17-59); Bilirubin,Total 0.7 mg/dL (0.2-1.3); Blood Urea Nitrogen 32 mg/dL (9-20); Calcium 9.5 mg/dL (8.4-10.2); Carbon Dioxide 36 mmol/L (22-30); Chloride 92 mmol/L (98-107); Estimated CRCL calculation 66 ml/min; Estimated Glomerular Filt Rate > 60; Glucose 147 mg/dL (65-110); Potassium 3.5 mmol/L (3.4-5.0); Sodium 136 mmol/L (137-145)
[2023-08-16] MEDS: FLUTICASONE/UMECLIDIN/VILANTER 100-62.5-25 MCG ELLIPTA 1 PUFF INHALATION (08:00)
[2023-08-16] MEDS: APIXABAN 5 MG TABLET PO ×2 (10:15→10:16)
[2023-08-16] MEDS: FUROSEMIDE INJ 40 MG/4 ML VIAL IV PUSH ×2 (10:15→20:53)
[2023-08-16] MEDS: LORATADINE 10 MG TABLET PO (10:16)
[2023-08-16] MEDS: REMDESIVIR 100 MG/NS 250 ML 100 MG/250 ML BAG 250 MG IVPB (10:16)
[2023-08-16] MEDS: hydroCHLOROthiazide 25 MG TABLET PO (10:16)
[2023-08-16] MEDS: VALSARTAN 160 MG TABLET 320 MG PO (10:16)
--- NOTE | 2023-08-16 11:19 | PC.NURSE ---
This patient, Billy Russ, was transferred to [facility] on 08/16/23 at 1114. Personal belongings sent with patient. Report given to OLYA Prater. Appropriate documentation sent with patient.
--- NOTE | 2023-08-16 11:47 | PC.NURSE ---
This patient, Bilyl Russ, was received from IMU on 08/16/23 at 1147. Patient/family oriented to unit policies and routines. Report received from Verena DOBSON
--- NOTE | 2023-08-16 12:02 | PM.IMPN ---
Progress Note: A&P Assessment and Plan (1) Pneumonia due to 2019-nCoV: Code(s): U07.1 - COVID-19; J12.82 - Pneumonia due to coronavirus disease 2019 Status: Acute Assessment and Plan: patient took home COVID test due to persistent coughing. COVID test was positive. Repeat test in the ED was also positive. Chest x-ray showing interstitial and airspace opacities of the mid and lower lung zones consistent with pneumonia and/or pulmonary edema. Dexamethasone 10 mg IV, 10 doses starting 08/15/2023. Remdesivir 100 mg IV daily x5 doses DuoNebs ordered. Contact precautions (2) Hypoxia: Code(s): R09.02 - Hypoxemia Status: Resolved Assessment and Plan: Likely related to COVID-19. Chest CTA with no acute cardiopulmonary abnormality Patient on room air (3) Paroxysmal atrial fibrillation: Code(s): I48.0 - Paroxysmal atrial fibrillation Status: Acute Assessment and Plan: Continue Elliquis. Patient rate controlled (4) Hypertension: Code(s): I10 - Essential (primary) hypertension Status: Acute Assessment and Plan: Continue antihypertensives (5) Obstructive sleep apnea on CPAP: Code(s): G47.33 - Obstructive sleep apnea (adult) (pediatric); Z99.89 - Dependence on other enabling machines and devices Status: Acute Assessment and Plan: CPAP at night. (6) Congestive heart failure (CHF): Code(s): I50.9 - Heart failure, unspecified Status: Acute Assessment and Plan: Patient not currently on any medications for CHF. Does not appear to be in active exacerbation. BNP elevated to 6600. Echocardiogram with an EF of 55-60%, severely enlarged left atrial chamber and abnormal diastolic function. Subjective Date/time seen: 08/16/23 12:02 Interval history: patient doing much better today. He states that he is breathing easier. He denies any chest pain or shortness of breath. He has not moved much about the room due to chronic left leg weakness. He continues to cough but this also is improving. Oxygen has been weaned to room air. Suspect patient will be able to discharge tomorrow if he continues to improve. Exam Narrative: GENERAL: Comfortable, no acute distress HENMT: moist mucous membranes EYES: EOM intact b/l NECK: no lymphadenopathy RESPIRATORY: Distant breath sounds CARDIO: RRR, distant heart sounds GI: soft, nontender, bowel sounds present SKIN: no rashes EXTREMITIES: no edema, redness or tenderness Objective Data Vital Signs Vital Signs: Vital Signs - 24 hr 08/15/23 16:00 08/15/23 20:38 08/15/23 21:00 Temperature 98.4 F 98.1 F Pulse Rate 80 97 94 Respiratory Rate 16 18 18 Blood Pressure 159/63 H 159/109 H Pulse Oximetry 100 96 Oxygen Delivery 08/15/23 23:53 08/16/23 02:20 08/15/23 20:00 Temperature 98.2 F Pulse Rate 83 79 92 Respiratory Rate 18 20 Blood Pressure 158/90 H Pulse Oximetry 97 Oxygen Delivery 08/15/23 22:00 08/15/23 20:00 08/16/23 00:00 Temperature Pulse Rate 78 73 Respiratory Rate Blood Pressure Pulse Oximetry 96 Oxygen Delivery Room Air 08/16/23 00:00 08/16/23 00:00 08/16/23 02:00 Temperature Pulse Rate 83 87 Respiratory Rate Blood Pressure Pulse Oximetry 97 Oxygen Delivery Room Air 08/16/23 05:13 08/16/23 04:00 08/16/23 06:00 Temperature 97.9 F Pulse Rate 88 80 75 Respiratory Rate 18 Blood Pressure 178/90 H Pulse Oximetry 99 Oxygen Delivery 08/16/23 04:00 08/16/23 08:17 08/16/23 08:00 Temperature 97.7 F Pulse Rate 124 H 124 H Respiratory Rate 20 20 Blood Pressure 141/93 H Pulse Oximetry 99 97 97 Oxygen Delivery Room Air Room Air 08/16/23 08:00 08/16/23 10:00 Temperature Pulse Rate 80 82 Respiratory Rate Blood Pressure Pulse Oximetry Oxygen Delivery Intake/Output Intake/Output: Intake & Output
[2023-08-16] MEDS: ALPRAZolam (*CRX) 0.25 MG TABLET PO (14:16)
[2023-08-16] MEDS: METOPROLOL SUCCINATE EXT REL 100 MG TABCR PO (17:34)
[2023-08-16] MEDS: PANTOPRAZOLE 40 MG TABLET PO (17:34)
[2023-08-16] MEDS: PRAVASTATIN SODIUM 20 MG TABLET 40 MG PO (17:34)
[2023-08-16] MEDS: ALBUTEROL SULFATE (*SP) INHALER 1 PUFF (20:04)
[2023-08-16] MEDS: MONTELUKAST SODIUM 10 MG TABLET PO (20:53)
[2023-08-16] MEDS: MELATONIN 5 MG TABLET 10 MG PO (20:54)
[2023-08-16] MEDS: HYDROcodone/acetaminophen (*CRX) 5-325 MG TABLET 1 TAB PO (20:54)
[2023-08-17] VITALS (9 sets, daily range): BP systolic 112–142; BP diastolic 47–78; PULSE 64–97; RESP 16; TEMP 36.2–36.6; O2SAT 97–99
[2023-08-17 05:23] LABS: Hematocrit 53.1 % (42.0-52.0); Hemoglobin 17.7 g/dL (14.0-18.0); Mean Corpuscular HGB Conc 33.3 g/dl (32-36); Mean Corpuscular Hemoglobin 31.7 pg (26-34); Mean Corpuscular Volume 95.2 fl (80-100); Mean Platelet Volume 9.5 fl (7.4-10.4); Platelet Count Result 224 k/mm3 (150-375); Red Blood Count 5.58 M/mm3 (4.6-6.20); White Blood Count 17.3 K/mm3 (4.5-10.0)
[2023-08-17 05:35] LABS: INR 1.3; Prothrombin Time 17.1 Seconds (11.1-14.7)
[2023-08-17 05:36] LABS: Alanine Aminotransferase 31 U/L (6-50); Albumin Level 3.9 g/dL (3.5-5.1); Alkaline Phosphatase 48 U/L (38-126); Anion Gap 10 mmol/L (8-16); Aspartate Amino Transferase 40 U/L (17-59); Bilirubin,Total 0.7 mg/dL (0.2-1.3); Blood Urea Nitrogen 48 mg/dL (9-20); Calcium 8.8 mg/dL (8.4-10.2); Carbon Dioxide 33 mmol/L (22-30); Chloride 93 mmol/L (98-107); Estimated CRCL calculation 56 ml/min; Estimated Glomerular Filt Rate 54; Glucose 134 mg/dL (65-110); Sodium 136 mmol/L (137-145)
[2023-08-17 07:59] LABS: Magnesium 2.4 mg/dL (1.6-2.3)
[2023-08-17] MEDS: APIXABAN 5 MG TABLET PO (09:18)
[2023-08-17] MEDS: POTASSIUM CHLORIDE 20 MEQ ER TABLET 40 MEQ PO (09:18)
[2023-08-17] MEDS: ALPRAZolam (*CRX) 0.25 MG TABLET PO (09:19)
[2023-08-17] MEDS: hydroCHLOROthiazide 25 MG TABLET PO (09:19)
[2023-08-17] MEDS: FUROSEMIDE INJ 40 MG/4 ML VIAL IV PUSH (09:19)
[2023-08-17] MEDS: LORATADINE 10 MG TABLET PO (09:19)
[2023-08-17] MEDS: VALSARTAN 160 MG TABLET 320 MG PO (09:19)
[2023-08-17] MEDS: FLUTICASONE/UMECLIDIN/VILANTER 100-62.5-25 MCG ELLIPTA 1 PUFF INHALATION (09:58)
[2023-08-17] MEDS: ALBUTEROL SULFATE (*SP) AEROSOL 1 PUFF 2 PUFF INHALATION (09:58)
[2023-08-17] MEDS: REMDESIVIR 100 MG/NS 250 ML 100 MG/250 ML BAG 250 MG IVPB (10:22)
--- NOTE | 2023-08-17 10:37 | PM.DS ---
DS: Admitting Diagnosis Discharge Date 08/17/23 Admitting Diagnosis COVID19 DS: Discharge Diagnosis Discharge Diagnosis (1) Pneumonia due to 2019-nCoV: Code(s): U07.1 - COVID-19; J12.82 - Pneumonia due to coronavirus disease 2018 Status: Acute (2) Hypoxia: Code(s): R09.02 - Hypoxemia Status: Resolved (3) Paroxysmal atrial fibrillation: Code(s): I48.0 - Paroxysmal atrial fibrillation Status: Acute (4) Hypertension: Code(s): I10 - Essential (primary) hypertension Status: Acute (5) Obstructive sleep apnea on CPAP: Code(s): G47.33 - Obstructive sleep apnea (adult) (pediatric); Z99.89 - Dependence on other enabling machines and devices Status: Acute (6) Congestive heart failure (CHF): Code(s): I50.9 - Heart failure, unspecified Status: Acute DS: Summary Hospital Course Hospital Course: This is a 78-year-old male with a past medical history of AFib on anticoagulation, hypertension, hyperlipidemia, COPD and GERD that presented to the ED on 08/14/2023 due to persistent cough and testing positive for COVID-19 at home.? Due to patient's history lung disease he thought it would be best to be evaluated in the ED.? While in the ED he was found to? have low oxygen saturation and was put on 2 L of supplemental oxygen.? He was started on Decadron.? Patient states that his has also tested positive at home.? He denies ever having a fever.? He stated in the ED that he did have some chest discomfort and they ran troponins which were mildly elevated but remained flat.? When discussing with him he states that he does not have any chest pain or discomfort but does have some back pain that he believes is from coughing.? He denies any production to his cough and states that it is been dry.? He does use inhalers at home regularly.? He is a former smoker of 20 years and quit in 2000.? He also has a history of CHF but is not on any medications for this.? BNP was? elevated to 6600.? Echocardiogram revealed EF of 55-60%, severely enlarged left atrial chamber and mild valvular disease and abnormal diastolic function.? Remdesivir started due to patient's oxygen demands and history of pulmonary disorder.? patient was able to be weaned off oxygen. His symptoms greatly improved to the point where he did have much of a cough. Patient doing much better. Labs and vital signs are stable and he is medically clear for discharge at this time Time Spent with Patient Time attestation: Total time spent providing and/or coordinating discharge services: Exam Narrative: GENERAL: Comfortable, no acute distress HENMT: moist mucous membranes EYES: EOM intact b/l NECK: no lymphadenopathy RESPIRATORY: Distant breath sounds CARDIO: RRR, distant heart sounds GI: soft, nontender, bowel sounds present SKIN: no rashes EXTREMITIES: no edema, redness or tenderness DS: Data Data Completed and Pending Labs on day of discharge: Labs from last 24 hours 08/17/23 08/17/23 05:13 05:06 WBC 17.3 H RBC 5.58 Hgb 17.7 Hct 53.1 H MCV 95.2 MCH 31.7 MCHC 33.3 RDW 14.0 Plt Count 224 MPV 9.5 PT 17.1 H INR 1.3 Sodium 136 L Potassium 3.0 L Chloride 93 L Carbon Dioxide 33 H Anion Gap 10 BUN 48 H D Creatinine 1.30 Estim Creat Clear Calc 56 Estimated GFR 54 L Glucose 134 H Calcium 8.8 Magnesium 2.4 H Total Bilirubin 0.7 AST 40 ALT 31 Alkaline Phosphatase 48 Total Protein 7.0 Albumin 3.9 Discharge Plan Discharge Attending physician on discharge: Samanta Leon Discharging Clinician: Jen Pool Patient Disposition: Home, Self-Care Activity: as tolerated Diet: heart healthy Discharge Instructions: Dexamethasone 6 mg daily for total of 10 days Take all medications as prescribed even if feeling better Remember to stay quarantined until 08/19/2023 Wear a mask in public, and stay away from large microfilm camera operator
== END 2023-08-17 14:00 | disposition home or self-care (01) | DRG 177 ==
LOC: ANHED 20:50 → ANHIMU 23:25 → ANH2MED 08-16 11:27
PROVIDERS: Admitting Provider Internal Medicine; Emergency Provider Emergency Medicine; PCP Internal Medicine; Visit Provider Internal Medicine Critical Care Medicine
DX: U07.1 COVID-19 (principal); J12.82 Pneumonia due to coronavirus disease 2019; G47.33 Obstructive sleep apnea (adult) (pediatric); I11.0 Hypertensive heart disease with heart failure; I50.9 Heart failure, unspecified; I48.0 Paroxysmal atrial fibrillation; E78.5 Hyperlipidemia, unspecified; J44.9 Chronic obstructive pulmonary disease, unspecified; K21.9 Gastro-esophageal reflux disease without esophagitis; F41.9 Anxiety disorder, unspecified; I71.9 Aortic aneurysm of unspecified site, without rupture; M19.90 Unspecified osteoarthritis, unspecified site; R77.8 Other specified abnormalities of plasma proteins; Z99.89 Dependence on other enabling machines and devices; Z79.01 Long term (current) use of anticoagulants; Z98.41 Cataract extraction status, right eye; Z98.42 Cataract extraction status, left eye; Z87.891 Personal history of nicotine dependence
CPT/HCPCS: 36415; 71045; 71275; 80053; 82565; 83735; 83880; 84460; 84484; 85025; 85027; 85610; 85730; 87636; 93005; 94640; 96374; 99285; A9270; C8929; G0378; J0248; J1100; J1940; Q9957; Q9967

== ENCOUNTER → 2023-11-13 09:12 | Outpatient (CLI) | payer MEDICARE, SELFPAY ==
--- NOTE | ~2023-11-13 | MR_ITS ---
EXAMINATION: MR foot RT wo/w con DATE: 11/13/2023 11:07 INDICATION: Osteomyelitis with open wound at the right second toe TECHNIQUE: Magnetic resonance imaging (MRI) of the right fore/mid foot was performed without and with 20 mL Multihance intravenous contrast. Sequences included axial, sagittal and coronal T1-weighted FS E, sagittal fluid sensitive FSE STIR, axial and coronal T2-weighted FS FSE, axial T1-weighted FS FSE and postcontrast axial, sagittal and coronal T1-weighted FS FSE. COMPARISON: None FINDINGS: Bone alignment is normal. No fracture. Loss of T1 marrow fat signal with mild increased T2 signal and mild enhancement throughout the second distal phalanx consistent with osteomyelitis. There is loss o f discernible low signal intensity peripheral cortication suggesting associated osteolysis although t his would be better appreciated with radiographs. On the sagittal images there appears to be a tiny s inus tract to the soft tissues extending from the region of the tuft to the distal phalanx to the dis reid tip of the second digit. No abscess or other abnormal fluid collections. Normal marrow signal thr oughout the remainder of the right fore foot, mid foot and visualized hind foot. Polyarticular osteoa rthritis, moderate at the first metatarsophalangeal joint and mild at a few of the tarsal metatarsal and interphalangeal joints. Lisfranc ligament complex along with the collateral ligament complex at t he metatarsophalangeal and interphalangeal joints are normal. Visualized portions of the flexor and e xtensor tendons are normal. There is moderate fatty atrophy of the intrinsic musculature of the foot. No other abnormally enhancing lesions throughout the visualized right foot. IMPRESSION: 1. Osteomyelitis involving the entire distal phalanx of the right second toe. Reviewed, dictated and finalized at location A. ER OPERATOR
== END ==
PROVIDERS: PCP Internal Medicine; Visit Provider Podiatrist Foot & Ankle Surgery
DX: M86.171 Other acute osteomyelitis, right ankle and foot (principal)
CPT/HCPCS: 73720; A9577

== ENCOUNTER 2023-11-20 11:25 | Outpatient (CLI) | payer MEDICARE, SELFPAY ==
[2023-11-20 12:00] LABS: Anion Gap 5 mmol/L (8-16); Blood Urea Nitrogen 22 mg/dL (9-20); Calcium 9.4 mg/dL (8.4-10.2); Carbon Dioxide 32 mmol/L (22-30); Chloride 101 mmol/L (98-107); Estimated Glomerular Filt Rate > 60; Glucose 112 mg/dL (65-110); Potassium 4.6 mmol/L (3.4-5.0); Sodium 138 mmol/L (137-145)
== END 2023-11-20 11:26 | disposition home or self-care (01) ==
LOC: ANHSURGERY 11:28
PROVIDERS: Anesthesiology; PCP Internal Medicine; Visit Provider Podiatrist Foot & Ankle Surgery
DX: I10 Essential (primary) hypertension (principal); Z01.818 Encounter for other preprocedural examination
CPT/HCPCS: 36415; 80048

== ENCOUNTER 2023-11-21 02:32 | Day surgery (SDC) | payer MEDICARE, SELFPAY ==
--- NOTE | 2023-11-19 13:07 | PC.NURSE ---
Report to the Outpatient Waiting Room, entrance under the green pavilion located off [facility], at time _1000 on date __11/21/23 . Planned Procedure Time: __1200 . Time changes happen often and if your time is changed the preop area will call you the afternoon before. - You and your visitor will be asked to self-screen and do not enter if you have any COVID symptoms. - A mask is optional within the hospital at this time. Patients may have clear liquids (water, carbonated beverages, clear teas, apple juice) until 3 hours prior to surgery( 9:00 AM) with a maximum of 20 ounces. - No food from midnight until time of surgery - Infants may have breast milk until 4 hours before surgery, infant formula 6 hours prior to surgery. - Children will be allowed to drink immediately following surgery. If applicable, please bring a bottle or sippy cup to assist with drinking. Juice, water, soda, and popsicles are readily available. For infants on formula, please bring formula the day of surgery. Pacifiers are allowed. Take the following medications with a SIP of water the morning of surgery: ____BREZTRI INHALER DO NOT STOP ANY OF YOUR OTHER PRESCRIPTION MEDICATIONS PRIOR TO SURGERY ?EXCEPT THE FOLLOWING Medications to discontinue per physician _HOLD ELIQUIS 3 DAYS PRE OP PER DR SALAZAR LAST DOSE 11/17/23 . ALL VITAMINS HOLD 3 DAYS PRE OP Please no make-up, nail hungarian, hairspray, perfume, deodorant, or body powder the day of surgery. No jewelry (including any body piercings) or valuables the day of surgery, leave them at home. Please take a shower or bath the night before, or the morning of, surgery with an antibacterial soap. Wear comfortable, loose fitting clothing. Children are encouraged to wear pajamas. - Jewelry must be removed prior to entering the operating room. Rings and piercings that are not removed may be cut off. - The hospital will not accept responsibility for valuables. - Please leave all valuables, including medications, at home the day of surgery. If you are going home after surgery, a licensed septic pump truck driver must drive you home. - NO public transportation without another adult if you receive anesthesia. - We recommend that an adult stay with you for 24 hours following discharge. - We also recommend that you do not drive, make important decision, drink alcoholic beverages, or take any drugs that were not prescribed by your health care provider for at least 24 hours after your discharge time. For Pediatric surgeries, we recommend two adults accompany the child home. Follow any additional instructions given to you from your surgeon. If you or anyone in your household have experienced Covid symptoms in the past week, please notify your surgeon or the nurse liaison at the phone number below for possible testing. Telephone instructions given to _PATIENT and asked if any additional questions and then verbalized understanding. Patient advised to call surgeon office or pre surgery nurse liaison [phone] if any additional questions.
[2023-11-19 13:15] VITALS: BMI 33.3
[2023-11-21] VITALS (11 sets, daily range): BP systolic 109–213; BP diastolic 65–109; PULSE 64–79; RESP 13–18; TEMP 36.4; O2SAT 95–100
--- NOTE | 2023-11-21 11:22 | WPDANESEPPF ---
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 Patient Data Age: 78 Gender: M Height: 1.85 m Weight: 114.35 kg Allergies Allergy/AdvReac Type Severity Reaction Status Date / Time nirmatrelvir AdvReac Insomnia Verified 11/19/23 12:56 [From Paxlovid (EUA)] ritonavir AdvReac Insomnia Verified 11/19/23 12:56 [From Paxlovid (EUA)] Home Medications Medication Instructions Recorded Confirmed Type acetaminophen 650 mg tablet 650 mg PO Q4H PRN Pain (Scale 09/24/22 11/19/23 History Score 1-3) alprazolam 0.25 mg tablet 0.25 mg PO HS PRN Anxiety 09/24/22 11/19/23 History apixaban 5 mg tablet (Eliquis) 5 mg PO Q12H 09/24/22 11/19/23 History diphenhydramine HCl 25 mg capsule 25 mg PO TID PRN Itching 09/24/22 11/19/23 History (Benadryl) fluticasone propionate 50 2 spray intranasal DAILY 09/24/22 11/19/23 History mcg/actuation nasal spray,suspension loratadine 10 mg tablet (Claritin) 10 mg PO DAILY 09/24/22 11/19/23 History melatonin 10 mg tablet 10 mg PO HS 09/24/22 11/19/23 History metoprolol succinate 100 mg 100 mg PO QPM 09/24/22 11/19/23 History tablet,extended release 24 hr montelukast 10 mg tablet 10 mg PO DAILY 09/24/22 11/19/23 History avvupdzv-uk-fmlaz 300 mcg-K 60 1 tablet PO DAILY 09/24/22 11/19/23 History mcg-lycop 600 mcg-lutein 300 mcg tablet (Centrum Silver Men) pantoprazole 40 mg tablet,delayed 40 mg PO QPM 09/24/22 11/19/23 History release pravastatin 40 mg tablet 40 mg PO QPM 09/24/22 11/19/23 History valsartan 320 1 tablet PO DAILY 09/24/22 11/19/23 History mg-hydrochlorothiazide 25 mg tablet budesonide 160 mcg-glycopyr 9 1 inh inhalation BID 08/15/23 11/19/23 History mcg-formot 4.8 mcg/actuation HFA inhaler (Breztri Aerosphere) tramadol 50 mg tablet 50 mg PO PRN PRN Pain 11/19/23 11/19/23 History Patient hx anesthesia problems: none Family hx anesthesia problems: none Results Review: All pre-operative results and documents have been reviewed as part of the pre-operative evaluation. [facility] Past Medical History Medical History Anxiety Aortic aneurysm Being monitored by a vascular surgeon in [place]. 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 No aneurysm. Arthritis Chronic anticoagulation Chronic obstructive pulmonary disease Congestive heart failure (CHF) Hypertension Obstructive sleep apnea on CPAP Paroxysmal atrial fibrillation Spinal stenosis Surgical History Surgical History History of bilateral cataract extraction History of cardiac radiofrequency ablation Family History Family History Father Heart problem Lung cancer Hernia Sibling Heart problem Family history of heart disease in male family member before age 55 Breast cancer Uterine cancer Mother Hypertension Diabetes mellitus Anemia Social History Social History Social History: Surrogate medical decision maker: Maria D Russ, spouse. Code status: Full code. Smoking packs per day: 1 Smoking cigarettes per day: 20.0 Years smoked: 33 Smoking pack-years: 33.00 Smoking status: Former smoker Tobacco type: cigarettes Smoking end date: 12/01/00 Alcohol intake: current Drinks per week: 1 Substance use: never Substance use type: does not use Lack of Transportation: No Lack of Food: Never True Current Housing: I Have Housing Concerned About Future Housing: No Difficulty Paying Gas/Electric Bills: No Difficulty Paying for Meds
--- NOTE | 2023-11-21 11:55 | WPDHPUPDATE1 ---
History and Physical Update Update Date/Time: 11/21/23 11:55 History and Physical has been reviewed, including an updated exam of the patient. There are NO changes in the patient's condition. Risks, benefits, and alternatives have been discussed and questions answered. Patient agrees to proceed with procedure partial amputation of the right second toe
[2023-11-21] MEDS: ceFAZolin 2 GM/D5W 50 ML 2 GM/50 ML BAG IVPB (12:05)
[2023-11-21] MEDS: hydrALAZINE HCL 20 MG/ML VIAL 10 MG IV PUSH (12:10)
[2023-11-21] MEDS: BUPivacaine HCL 0.5% 10 ML AMP INFILTRATE (12:22)
[2023-11-21] MEDS: LIDOCAINE HCL 1% LOCAL INJ 20 ML VIAL 10 ML INFILTRATE (12:23)
--- NOTE | 2023-11-21 12:34 | W.PM.PROC2 ---
Procedure Note - Detailed Date of Procedure 11/21/23 Pre-op Diagnosis osteomylitis 2nd toe right foot Post-op Diagnosis Same Procedure Performed partial amputation right second toe Surgeon Peter Rose, STEFANY Anesthesia General Description of Procedure Under monitored sedation patient was brought into the operating room and placed on the operating table in a supine position. Following MAC sedation local anesthesia was obtained around the 3rd right foot using 2% Lidocaine plain with 0.5% Marcaine plain. The foot was then scrubbed, prepped, and draped in the usual aseptic manner. An Esmark bandage was used to exsanguinate the patient?s left foot and the ankle tourniquet was inflated. Attention was then directed to the 2nd toe where a fish mouth type of incision was made at the DIPJ. It was noted that the bone was soft and appeared infected. The toe was disarticulated at the DIPJ and removed entirely. The toe was send for pathology and culture. The wound was flushed with copious amounts of sterile normal saline. Skin was repaired using 4-0 nylon. The wound was then covered with a dry, sterile compressive dressing consisting of steristrips, antibiotic ointment, Adaptic, 4 x4?s Rubi and Coban. Ankle tourniquet was deflated; prompt capillary refill response was noted to all remaining digits of the left foot. Patient tolerated the procedure and anesthesia well, was transferred to the recovery room with vital signs stable and neurovascular status intact to all remaining digits of the left foot. Following a period of post-op monitoring the patient will be discharged home with written and oral post-op instructions.
[2023-11-21] MEDS: LACTATED RINGERS 1,000 ML 30 ML IV CONT (12:40)
[2023-11-21 13:04] LABS: Glucose Point of Care 128 mg/dl (65-105)
== END 2023-11-21 15:02 | disposition home or self-care (01) ==
PROVIDERS: PCP Internal Medicine; Visit Provider Podiatrist Foot & Ankle Surgery
PROC: (CPT 28825; principal; 2023-11-21 12:00)
DX: M86.671 Other chronic osteomyelitis, right ankle and foot (principal); L89.899 Pressure ulcer of other site, unspecified stage; I11.0 Hypertensive heart disease with heart failure; I50.9 Heart failure, unspecified; I48.0 Paroxysmal atrial fibrillation; I25.10 Atherosclerotic heart disease of native coronary artery without angina pectoris; J44.9 Chronic obstructive pulmonary disease, unspecified; F41.9 Anxiety disorder, unspecified; Z79.01 Long term (current) use of anticoagulants; Z79.51 Long term (current) use of inhaled steroids; Z87.891 Personal history of nicotine dependence; E66.9 Obesity, unspecified; Z68.32 Body mass index [BMI] 32.0-32.9, adult
CPT/HCPCS: 28825; 36415; 80048; 82948; 87070; 87075; 87205; 88305; 88311; A9270; J0360; J0690; J1100; J2250; J2405; J2704; J3010; J7120

== ENCOUNTER 2024-01-16 11:59 | Emergency (ER) | payer MEDICARE, SELFPAY ==
--- NOTE | ~2024-01-16 | XR_ITS ---
EXAMINATION: XR chest 2V DATE: 01/16/2024 17:17 INDICATION: Shortness of breath TECHNIQUE: frontal and lateral views of the chest were obtained. COMPARISON: Chest radiograph and CT dated 08/14/23 FINDINGS: The lungs remain clear with no focal airspace opacities, pulmonary edema, pleural effusion or pneumot horax. The cardiomediastinal silhouette is normal. There are bridging osteophytes at multiple levels consistent with diffuse idiopathic skeletal hyperostosis (DISH). IMPRESSION: 1. No acute cardiopulmonary disease. Reviewed, dictated and finalized at location A. NA CARRIER
--- NOTE | ~2024-01-16 | CT_ITS ---
EXAMINATION: CT brain wo con DATE: 01/16/2024 17:09 INDICATION: Headache TECHNIQUE: Computed tomography (CT) of the head was performed without intravenous contrast. Sagittal and coronal reconstructions were performed. The mA was adjusted according to patient size. Iterative reconstruction technique was employed. The dose-length product was 681.00 mGy-cm. COMPARISON: None FINDINGS: Multiple small regions of encephalomalacia along gyri in the right frontal and right parietal lobes c onsistent with chronic infarcts No acute intracranial hemorrhage, acute infarction or abnormal extra axial fluid collection. Ventricles are normal and symmetric. No mass/mass effect. Changes of bilatera l intraocular lens replacement. The orbits and mastoid air cells are normal. Mild mucosal thickening at the floor of the right maxillary sinus. IMPRESSION: 1. 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 No acute intracranial process. Reviewed, dictated and finalized at location A. FORMER
[2024-01-16 12:26] VITALS: BP 124/77; PULSE 90; RESP 18; TEMP 36.4; O2SAT 93
[2024-01-16 16:32] VITALS: PULSE 93
[2024-01-16 16:33] VITALS: BP 173/107; PULSE 87; RESP 20; O2SAT 96
[2024-01-16 17:43] LABS: Basophils Absolute Auto 0.1 K/mm3 (0.0-0.1); Eosinophils Absolute Auto 0.5 K/mm3 (0-0.3); Eosinophils Percent Auto 4.4 % (0-4.4); Hematocrit 49.9 % (42.0-52.0); Hemoglobin 15.8 g/dL (14.0-18.0); Immature Granulocyte Absolute 0.11 K/mm3 (0.00-0.031); Immature Granulocyte Percent A 0.9 % (0-0.5); Lymphocytes Absolute Auto 1.77 K/mm3 (0.9-3.2); Lymphocytes Percent Auto 14.3 % (18.3-44.2); Mean Corpuscular HGB Conc 31.7 g/dl (32-36); Mean Corpuscular Hemoglobin 30.1 pg (26-34); Mean Platelet Volume 8.8 fl (7.4-10.4); Monocytes Absolute Auto 1.1 K/mm3 (0.1-0.6); Monocytes Percent Auto 9.2 % (2.6-8.5); Neutrophils Absolute Auto 8.7 K/mm3 (1.3-6.7); Neutrophils Percent Auto 70.2 % (45.5-73.1); Platelet Count Result 556 k/mm3 (150-375); Red Blood Count 5.25 M/mm3 (4.6-6.20); Red Cell Distribution Width 13.9 % (11.5-14.5); White Blood Count 12.4 K/mm3 (4.5-10.0)
[2024-01-16 17:54] LABS: Alanine Aminotransferase 126 U/L (6-50); Albumin Level 4.1 g/dL (3.5-5.1); Alkaline Phosphatase 181 U/L (38-126); Anion Gap 7 mmol/L (8-16); Aspartate Amino Transferase 71 U/L (17-59); Bilirubin,Total 0.8 mg/dL (0.2-1.3); Blood Urea Nitrogen 33 mg/dL (9-20); Calcium 10.5 mg/dL (8.4-10.2); Carbon Dioxide 34 mmol/L (22-30); Chloride 97 mmol/L (98-107); Estimated CRCL calculation 71 ml/min; Estimated Glomerular Filt Rate > 60; Glucose 119 mg/dL (65-110); INR 1.4; Potassium 4.6 mmol/L (3.4-5.0); Prothrombin Time 17.8 Seconds (11.1-14.7); Sodium 138 mmol/L (137-145)
[2024-01-16 17:55] LABS: Partial Thromboplastin Time 30.3 SECONDS (22.3-36.8)
--- NOTE | 2024-01-16 18:10 | ED.NEUROSD ---
HPI - Neuro Symptoms/Deficit General Chief Complaint: Neuro Symptoms/Deficit Stated Complaint: right sided facial pain/chills Time Seen by Provider: 01/16/24 16:36 History of Present Illness HPI Narrative: patient is a 78-year-old male who presents ER with right-sided headache. Intermittent for the last 2 weeks. It improves with tramadol but then returns. No trauma. He has been having alternating cold spells and hot flashes. Denies sinus congestion or sore throat or productive cough. No known sick contacts. No change in vision. He reports he went to his eye doctor today for chronic evaluation of a floater in his right eye. He reports unchanged they saw no additional issues with his eyes and recommend he come here to be evaluated for his headache. Patient does report some mild shortness of breath that is atypical for him. He does have COPD and CHF. Related Data Home Medications Medication Instructions Recorded Confirmed acetaminophen 650 mg tablet 650 mg PO Q4H PRN Pain (Scale 09/24/22 11/21/23 Score 1-3) alprazolam 0.25 mg tablet 0.25 mg PO HS PRN Anxiety 09/24/22 11/21/23 apixaban 5 mg tablet (Eliquis) 5 mg PO Q12H 09/24/22 11/21/23 diphenhydramine HCl 25 mg capsule 25 mg PO TID PRN Itching 09/24/22 11/21/23 (Benadryl) fluticasone propionate 50 2 spray intranasal DAILY 09/24/22 11/21/23 mcg/actuation nasal spray,suspension loratadine 10 mg tablet (Claritin) 10 mg PO DAILY 09/24/22 11/21/23 melatonin 10 mg tablet 10 mg PO HS 09/24/22 11/21/23 metoprolol succinate 100 mg 100 mg PO QPM 09/24/22 11/21/23 tablet,extended release 24 hr montelukast 10 mg tablet 10 mg PO DAILY 09/24/22 11/21/23 rvoclorw-nd-xlycs 300 mcg-K 60 1 tablet PO DAILY 09/24/22 11/21/23 mcg-lycop 600 mcg-lutein 300 mcg tablet (Centrum Silver Men) pantoprazole 40 mg tablet,delayed 40 mg PO QPM 09/24/22 11/21/23 release pravastatin 40 mg tablet 40 mg PO QPM 09/24/22 11/21/23 valsartan 320 1 tablet PO DAILY 09/24/22 11/21/23 mg-hydrochlorothiazide 25 mg tablet budesonide 160 mcg-glycopyr 9 1 inh inhalation BID 08/15/23 11/21/23 mcg-formot 4.8 mcg/actuation HFA inhaler (Breztri Aerosphere) tramadol 50 mg tablet 50 mg PO PRN PRN Pain 11/19/23 11/21/23 Allergies Allergy/AdvReac Type Severity Reaction Status Date / Time nirmatrelvir AdvReac Insomnia Verified 01/16/24 16:35 [From Paxlovid (EUA)] ritonavir AdvReac Insomnia Verified 01/16/24 16:35 [From Paxlovid (EUA)] Review of Systems Review of Systems: All systems reviewed & are unremarkable except as noted in HPI and below Constitutional: Constitutional: Reports chills, Reports fatigue and Denies fever(s) ENT: Reports system reviewed and no additional complaints, except as documented Cardiovascular: Cardiovascular: Reports no additional cardiovascular complaints Respiratory: Respiratory: Denies cough, Reports dyspnea and Denies wheezing Gastrointestinal: Gastrointestinal: Denies abdominal pain, Denies nausea and Denies vomiting Genitourinary: Genitourinary: Reports no additional male genitourinary complaints [facility] Past Medical History Medical History Anxiety Aortic aneurysm Being monitored by a vascular surgeon in [place]. 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 No aneurysm. Arthritis Chronic anticoagulation Chronic obstructive pulmonary disease Congestive heart failure (CHF) Hypertension Obstructive sleep apnea on CPAP Paroxysmal atrial fibrillation Spinal stenosis Surgical History Surgical History History of bilateral cataract extraction History of cardiac radiofrequency ablation Family History Family History Father Heart problem Lung cancer Hernia Sibling Heart problem Family history of heart disease in [place]
[2024-01-16 18:21] LABS: Influenza A QL RT-PCR Negative (Negative); Influenza B QL RT-PCR Negative (Negative); RSV RNA, RT-PCR Negative (Negative); SARS-CoV-2 RNA PCR Negative (Negative)
[2024-01-16] MEDS: KETOROLAC 30 MG/ML VIAL (*BKC) IV PUSH (18:34)
== END 2024-01-16 19:11 | disposition home or self-care (01) ==
PROVIDERS: Emergency Provider Emergency Medicine; PCP Internal Medicine
DX: R51.9 Headache, unspecified (principal); R74.01 Elevation of levels of liver transaminase levels; J44.9 Chronic obstructive pulmonary disease, unspecified; I11.0 Hypertensive heart disease with heart failure; I50.9 Heart failure, unspecified; I48.0 Paroxysmal atrial fibrillation; Z79.01 Long term (current) use of anticoagulants; Z20.822 Contact with and (suspected) exposure to COVID-19; Z87.891 Personal history of nicotine dependence
CPT/HCPCS: 36415; 70450; 71046; 80053; 85025; 85610; 85730; 87637; 96374; 99284; J1885

== ENCOUNTER 2024-03-05 14:23 | Outpatient (CLI) | payer MEDICARE, SELFPAY ==
--- NOTE | ~2024-03-05 | CT_ITS ---
CT Scan of the Chest without Contrast: Clinical Indication: Lung nodule Technique: Contiguous sections were acquired throughout the chest without intravenous contrast. Dose reduction technique was used on this scan by utilizing automated exposure control and iterative recon struction technique. The dose-length product (DLP) was 388.32 mGy-cm. COMPARISON: 08/14/2023 Findings: There is no evidence of any significant mediastinal, hilar or axillary lymphadenopathy. The mediastin al soft tissues appear normal. There is no evidence of pleural or pericardial effusion. There is mild emphysema. Stable 4 mm left lower lobe pulmonary nodule. Images through the upper abdomen reveal no abnormalities. Impression: Stable 4 mm left lower lobe pulmonary nodule. Mild emphysema. Reviewed, dictated and finalized at location . Impression: Stable 4 mm left lower lobe pulmonary nodule. Mild emphysema.
== END 2024-03-05 14:24 | disposition home or self-care (01) ==
PROVIDERS: PCP Internal Medicine
DX: J44.9 Chronic obstructive pulmonary disease, unspecified (principal); Z87.891 Personal history of nicotine dependence; R91.8 Other nonspecific abnormal finding of lung field; I71.43 Infrarenal abdominal aortic aneurysm, without rupture; E66.09 Other obesity due to excess calories; J43.9 Emphysema, unspecified
CPT/HCPCS: 71250

== ENCOUNTER 2024-10-26 12:32 | Outpatient (CLI) | payer SELFPAY ==
--- NOTE | ~2024-10-26 | XR_ITS ---
EXAMINATION: XR shoulder RT min 2V DATE: 10/26/2024 12:57 INDICATION: Right shoulder pain. TECHNIQUE: 4 views of right shoulder were obtained. COMPARISON: None. FINDINGS: Alignment is normal. No fracture. There is mild osteoarthritis of glenohumeral joint and se alicia osteoarthritis of acromioclavicular joint. IMPRESSION: 1. Polyarticular osteoarthritis. Reviewed, dictated and finalized at location A. R HELPER
== END 2024-10-26 12:33 | disposition home or self-care (01) ==
LOC: MICIMG 12:34
PROVIDERS: PCP Nurse Practitioner Family; Visit Provider Nurse Practitioner Family
DX: M19.011 Primary osteoarthritis, right shoulder (principal)
CPT/HCPCS: 73030

== ENCOUNTER 2024-12-23 11:18 | Inpatient (IN) | payer MEDICARE, SELFPAY ==
[2024-12-23] VITALS (10 sets, daily range): BP systolic 132–155; BP diastolic 71–98; PULSE 86–110; RESP 18–28; TEMP 36.6–39.4; O2SAT 84–97; BMI 36.1
--- NOTE | ~2024-12-23 | XR_ITS ---
EXAMINATION: XR chest 1V portable DATE: 12/23/2024 12:43 INDICATION: Shortness of breath. TECHNIQUE: A single frontal view of the chest was obtained on 2 radiographs. COMPARISON: Chest 2 views 01/16/2024, chest CT 03/05/2024 FINDINGS: There is mild atelectasis at right lung base. No pleural effusion or pneumothorax. Cardiome julius is noted. IMPRESSION: 1. Mild atelectasis at right lung base. 2. Cardiomegaly. Reviewed, dictated and finalized at location B. [employer]
--- NOTE | 2024-12-23 11:30 | ECG_ITS ---
Test Date: 2024-12-23 12:14:58 Measurements Intervals Rover Rate: 91 P: 0 WI: 0 QRS: -45 QRSD: 81 T: 99 QT: 347 QTc: 428 Interpretive Statements ATRIAL FIBRILLATION LEFT AXIS DEVIATION [QRS AXIS < -30] LOW QRS VOLTAGE IN PRECORDIAL LEADS [QRS DEFLECTION < 1.0 mV IN CHEST LEADS] PATTERN CONSISTENT WITH PULMONARY DISEASE MODERATE ST DEPRESSION [0.05+ mV ST DEPRESSION] ABNORMAL QRS-T ANGLE [QRS-T AXIS DIFFERENCE > 60] No previous ECG available for comparison Electronically Signed On 12-23-2024 14:21:26 JOB COACH/JOB DEVELOPER by Cher Vergara
[2024-12-23 12:24] LABS: Alveolar/Arterial O2 Gradient 83.5 mmHg; Base Excess ABG -0.5 mEq/l (+/-2.0); Carboxyhemoglobin 1.2 % THb (0-2.0); Fractional Inspired Oxygen 28 %; HCO3 ABG 22.3 mEq/l (22.0-26.0); Oxygen Content ABG 16.9 %vol (16.0-22.0); Oxygen Saturation ABG 96.5 % (95.0-100.0); Oxyhemoglobin 94.8 % THb (90.0-100.0); PCO2 ABG 31.1 mmHg (35.0-45.0); PO2 ABG 79.4 mmHg (80.0-100.0); PO2 FiO2 Ratio Arterial Blood 2.84 %; Total Hemoglobin 12.6 g/dL (12.0-18.0); pH ABG 7.473 (7.350-7.450)
[2024-12-23 12:26] LABS: Device NASAL CANNULA; Site Drawn LEFT BRACHIAL
[2024-12-23 12:36] LABS: Influenza A QL RT-PCR Positive (Negative); Influenza B QL RT-PCR Negative (Negative); RSV RNA, RT-PCR Negative (Negative); SARS-CoV-2 RNA PCR Negative (Negative)
[2024-12-23 12:47] LABS: Basophils Absolute Auto 0.1 K/mm3 (0.0-0.1); Basophils Percent Auto 0.6 % (0.2-1.2); Eosinophils Absolute Auto 0.1 K/mm3 (0-0.3); Eosinophils Percent Auto 0.5 % (0-4.4); Hematocrit 37.9 % (42.0-52.0); Immature Granulocyte Absolute 0.05 K/mm3 (0.00-0.031); Immature Granulocyte Percent A 0.5 % (0-0.5); Lymphocytes Absolute Auto 0.49 K/mm3 (0.9-3.2); Lymphocytes Percent Auto 4.5 % (18.3-44.2); Mean Corpuscular HGB Conc 31.7 g/dl (32-36); Mean Corpuscular Hemoglobin 31.6 pg (26-34); Mean Corpuscular Volume 99.7 fl (80-100); Mean Platelet Volume 9.1 fl (7.4-10.4); Monocytes Absolute Auto 0.7 K/mm3 (0.1-0.6); Monocytes Percent Auto 6.6 % (2.6-8.5); Neutrophils Absolute Auto 9.6 K/mm3 (1.3-6.7); Neutrophils Percent Auto 87.3 % (45.5-73.1); Platelet Count Result 191 k/mm3 (150-375); Red Cell Distribution Width 16.1 % (11.5-14.5)
[2024-12-23 12:57] LABS: Alanine Aminotransferase 19 U/L (6-50); Albumin Level 3.5 g/dL (3.5-5.1); Alkaline Phosphatase 64 U/L (38-126); Anion Gap 10 mmol/L (4-12); Aspartate Amino Transferase 26 U/L (17-59); Bilirubin,Total 1.2 mg/dL (0.2-1.3); Blood Urea Nitrogen 23 mg/dL (9-20); Calcium 8.3 mg/dL (8.4-10.2); Carbon Dioxide 28 mmol/L (22-30); Chloride 100 mmol/L (98-107); Estimated CRCL calculation 71 ml/min; Estimated Glomerular Filt Rate > 60; Glucose 119 mg/dL (65-110); Lactic Acid Reflex 3.3 mmol/L (0.7-2.0); Potassium 4.7 mmol/L (3.4-5.0); Sodium 138 mmol/L (137-145)
[2024-12-23 13:07] LABS: Anisocytosis 1+; Ovalocytes 1+; Platelet Estimate Adequate (Adequate); Schistocytes None Seen
[2024-12-23 13:09] LABS: Troponin I 0.019 ng/mL (0.000-0.034)
[2024-12-23 13:11] LABS: Add Urine Microscopic? YES; Appearance Urine Clear (Clear); Bacteria Urine None Seen /hpf; Bilirubin Urine Negative (Negative); Blood Urine Negative (Negative); Color Urine Dark Yellow (Yellow); Glucose Urine UA Negative (Negative); Ketones Urine Negative (Negative); Leukocyte Esterase Ur Negative LEU/UL (Negative); Nitrate Urine Negative (Negative); Non Pathogenic Casts 0-2; Protein Urine 3+ mg/dL (Negative); RBC Urine 0-2 /hpf (0-2); Specific Grav Ur 1.025 (1.001-1.035); Squamous Epithelial Cell Urine None Seen /hpf (Few); WBC Urine 0-5 /hpf (0-3); pH Urine 5.5 (5.0-9.0)
--- NOTE | 2024-12-23 13:14 | ED.GENADULT ---
HPI - General Adult General Chief complaint: Shortness of Breath/Dyspnea Stated complaint: SOB Time Seen by Provider: 12/23/24 12:05 History of Present Illness HPI narrative: Patient 79-year-old gentleman who presents emergency department with chief complaint of shortness of breath. Patient reports that he wears 2 L nasal cannula at night and reports that he spiked a temperature today and was feeling very short of breath. The patient was found to be hypoxic and was started on oxygen Related Data Home Medications ?Medication ?Instructions ?Recorded ?Confirmed ?Last Taken ?Type acetaminophen 650 mg tablet 650 mg PO Q4H PRN Pain (Scale 09/24/22 11/21/23 Unknown History Score 1-3) alprazolam 0.25 mg tablet 0.25 mg PO HS PRN Anxiety 09/24/22 11/21/23 09/24/22 History 0300 apixaban 5 mg tablet (Eliquis) 5 mg PO Q12H 09/24/22 11/21/23 09/23/22 21:00 History diphenhydramine HCl 25 mg capsule 25 mg PO TID PRN Itching 09/24/22 11/21/23 Unknown History (Benadryl) fluticasone propionate 50 2 spray intranasal DAILY 09/24/22 11/21/23 Unknown History mcg/actuation nasal spray,suspension loratadine 10 mg tablet (Claritin) 10 mg PO DAILY 09/24/22 11/21/23 Unknown History melatonin 10 mg tablet 10 mg PO HS 09/24/22 11/21/23 Unknown History metoprolol succinate 100 mg 100 mg PO QPM 09/24/22 11/21/23 Unknown History tablet,extended release 24 hr montelukast 10 mg tablet 10 mg PO DAILY 09/24/22 11/21/23 Unknown History [id number] 300 mcg-K 60 1 tablet PO DAILY 09/24/22 11/21/23 Unknown History mcg-lycop 600 mcg-lutein 300 [facility]cg tablet [facility] pantoprazole 40 mg tablet,delayed 40 mg PO QPM 09/24/22 11/21/23 Unknown History release pravastatin 40 mg tablet 40 mg PO QPM 09/24/22 11/21/23 Unknown History valsartan 320 1 tablet PO DAILY 09/24/22 11/21/23 Unknown History mg-hydrochlorothiazide 25 mg tablet budesonide 160 mcg-glycopyr 9 1 inh inhalation BID 08/15/23 11/21/23 Unknown History mcg-formot 4.8 mcg/actuation HFA inhaler (Breztri Aerosphere) tramadol 50 mg tablet 50 mg PO PRN PRN Pain 11/19/23 11/21/23 Unknown History Allergies Allergy/AdvReac Type Severity Reaction Status Date / Time nirmatrelvir (From Paxlovid AdvReac Insomnia Verified 01/16/24 16:35 (EUA)) ritonavir (From Paxlovid AdvReac Insomnia Verified 01/16/24 16:35 (EUA)) Review of Systems Review of Systems: A 10 system review of systems was completed on the patient and is negative except for what is stated in the HPI. Nursing and ancillary documentation was reviewed. [facility] Past Medical History Medical History Congestive heart failure (CHF) Hypertension Anxiety Arthritis Spinal stenosis Obstructive sleep apnea on CPAP Chronic obstructive pulmonary disease Chronic anticoagulation Aortic aneurysm Being monitored by a vascular surgeon in [place]. 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 No aneurysm. Paroxysmal atrial fibrillation Surgical History Surgical History History of bilateral cataract extraction History of cardiac radiofrequency ablation Family History Family History Father Heart problem Lung cancer Hernia Sibling Heart problem Family history of heart disease in male family member before age 55 Breast cancer Uterine cancer Mother Hypertension Diabetes mellitus Anemia Social History Social History Social History: Surrogate medical decision maker: Maria D Russ, spouse. Code status: Full code. Smoking packs per day: 1 Smoking cigarettes per day: 20.0 Years smoked: 33 Smoking pack-years: 33.00 Smoking status: Former smoker Tobacco type: cigarettes Smoking end date: 12/01/00 Alcohol intake: current Drinks per week: 1 Substance use: never Substance use type: does not use Lack of Transportation: No Lack of Food: Never True Current Housing: I Have Housing Concerned About Future Housing: No Difficulty Paying Gas/Electric Bills: No Difficulty Paying for Meds: No Currently Unemployed: No Education: Bachelor's Degree Difficulty w/ Childcare or Family Care: No Living arrangements: with family Spiritual care concerns: No Exam Narrative: GENERAL: Ill-appearing, well-nourished, and in no acute distress. HEAD: Normocephalic, atraumatic. EYES: PERRLA and EOMI. ENT: Nares clear, no rhinorrhea or epistaxis. Mucous membranes moist. NECK: Supple. CHEST: Clear to auscultation. No respiratory distress. HEART: Regular rate and rhythm. No murmur heard. Normal peripheral pulses. ABDOMEN: Soft, nontender, nondistended, normal active bowel sounds. EXTREMITIES: Normal range of motion. No edema. SKIN: Warm, dry, no rash. NEURO: No focal deficits. Alert and oriented x3. PSYCH: Normal mood and affect. Course Vital Signs Vital signs: Vital Signs Temperature 39.4 C H 12/23/24 11:20 Pulse Rate 96 12/23/24 11:20 Respiratory Rate 12/23/24 11:20 Blood Pressure 144/71 H 12/23/24 11:20 Pulse Oximetry 92 12/23/24 11:20 Oxygen Delivery Nasal Cannula 12/23/24 11:20 Oxygen Flow Rate 2 12/23/24 11:20 Temperature 39.4 C H 12/23/24 11:20 Pulse Rate 96 12/23/24 11:20 Respiratory Rate 12/23/24 11:20 Blood Pressure 144/71 H 12/23/24 11:20 Pulse Oximetry 92 12/23/24 11:30 Oxygen Delivery Nasal Cannula 12/23/24 11:30 Oxygen Flow Rate 2 12/23/24 11:30 Medical Decision Making [facility] Narrative Medical decision making narrative: Differential diagnosis includes pneumonia, influenza, hypoxic respiratory failure In a laboratory studies were obtained on the patient showed white count 11.0 blood gas showed pH 7.473 pCO2 of 31 and PO2 of 79 electrolytes showed a lactate of 3.3 troponin 0.019 influenza was positive Patient received IV fluids Tamiflu the case will be discussed with the hospitalist for admission Vital Signs Vital Signs: Vital Signs Temperature 39.4 C H 12/23/24 11:20 Pulse Rate 96 12/23/24 11:20 Respiratory Rate 12/23/24 11:20 Blood Pressure 144/71 H 12/23/24 11:20 Pulse Oximetry 92 12/23/24 11:20 Oxygen Delivery Nasal Cannula 12/23/24 11:20 Oxygen Flow Rate 2 12/23/24 11:20 Temperature 39.4 C H 12/23/24 11:20 Pulse Rate 96 12/23/24 11:20 Respiratory Rate 20 12/23/24 11:20 Blood Pressure 144/71 H 12/23/24 11:20 Pulse Oximetry 92 12/23/24 11:30 Oxygen Delivery Nasal Cannula 12/23/24 11:30 Oxygen Flow Rate 2 12/23/24 11:30 Lab Data 12/23/24 12:35 12/23/24 12:35 Labs: Lab Results 12/23/24 12/23/24 12/23/24 Range/Units 11:36 12:22 12:35 WBC 11.0 H (4.5-10.0) K/mm3 RBC 3.80 L (4.6-6.20) M/mm3 Hgb 12.0 L D (14.0-18.0) g/dL Hct 37.9 L (42.0-52.0) % MCV 99.7 (80-100) fl MCH 31.6 (26-34) pg MCHC 31.7 L (32-36) g/dl RDW 16.1 H (11.5-14.5) % Plt Count 191 D (150-375) k/mm3 MPV 9.1 (7.4-10.4) fl Immature Gran % (Auto) 0.5 (0-0.5) % Neut % (Auto) 87.3 H (45.5-73.1) % Lymph % (Auto) 4.5 L (18.3-44.2) % [place] % (Auto) 6.6 (2.6-8.5) % Eos % (Auto) 0.5 (0-4.4) % Baso % (Auto) 0.6 (0.2-1.2) % Lymph # (Auto) 0.49 L (0.9-3.2) K/mm3 [place] # (Auto) 0.7 H (0.1-0.6) K/mm3 Eos # (Auto) 0.1 (0-0.3) K/mm3 Baso # (Auto) 0.1 (0.0-0.1) K/mm3 Abs Immat Gran (auto) 0.05 H (0.00-0.031) K/mm3 Absolute Neuts (auto) 9.6 H (1.3-6.7) K/mm3 Absolute Nucleated RBC 0.000 (0.0-0.012) K/mm3 Nucleated RBC % 0.0 (0.0-0.2) % Platelet Estimate Adequate (Adequate) Anisocytosis 1+ Ovalocytes 1+ Schistocytes None seen Methemoglobin 0.0 (0-1.5) %THb Sodium 138 (137-145) mmol/L Potassium 4.7 (3.4-5.0) mmol/L Chloride 100 (98-107) mmol/L Carbon Dioxide 28 (22-30) mmol/L Anion Gap 10 (4-12) mmol/L BUN 23 H D (9-20) mg/dL Creatinine 1.03 (0.7-1.3) mg/dL Estim Creat Clear Calc 71 ml/min Estimated GFR > 60 (59 - ) Glucose 119 H (65-110) mg/dL Lactic Acid 3.3 H (0.7-2.0) mmol/L Calcium (8.4-10.2) mg/dL Total Bilirubin (0.2-1.3) mg/dL AST (17-59) U/L ALT (6-50) U/L Alkaline Phosphatase (38-126) U/L Troponin I (0.000-0.034) ng/mL Total Protein (6.3-8.2) g/dL Albumin (3.5-5.1) g/dL Urine Color (Yellow) Urine Appearance (Clear) Urine pH (5.0-9.0) Ur Specific Radiant (1.001-1.035) Urine Protein (Negative) mg/dL Urine Glucose (UA) (Negative) mg/dL Urine Ketones (Negative) mg/dL Ur Blood (Man) (Negative) Urine Nitrate (Negative) Urine Bilirubin (Negative) Urine Urobilinogen (<2.0) mg/dL Leukocyte Esterase Rfl (Negative) CECILIA/UL Urine RBC (0-2) /hpf Urine WBC (0-3) /hpf Ur Squamous Epith Cells (Few) /hpf Urine Bacteria /hpf Urine Casts Influenza A (RT-PCR) Positive A (Negative) Influenza B (RT-PCR) Negative (Negative) RSV (RT-PCR) Negative (Negative) SARS-CoV-2 RNA (RT-PCR) Negative (Negative) 12/23/24 12/23/24 Range/Units 12:35 12:40 WBC (4.5-10.0) K/mm3 RBC (4.6-6.20) M/mm3 Hgb (14.0-18.0) g/dL Hct (42.0-52.0) % MCV (80-100) fl MCH (26-34) pg MCHC (32-36) g/dl RDW (11.5-14.5) % Plt Count (150-375) k/mm3 MPV (7.4-10.4) fl Immature Gran % (Auto) (0-0.5) % Neut % (Auto) (45.5-73.1) % Lymph % (Auto) (18.3-44.2) % [place] % (Auto) (2.6-8.5) % Eos % (Auto) (0-4.4) % Baso % (Auto) (0.2-1.2) % Lymph # (Auto) (0.9-3.2) K/mm3 [place] # (Auto) (0.1-0.6) K/mm3 Eos # (Auto) (0-0.3) K/mm3 Baso # (Auto) (0.0-0.1) K/mm3 Abs Immat Gran (auto) (0.00-0.031) K/mm3 Absolute Neuts (auto) (1.3-6.7) K/mm3 Absolute Nucleated RBC (0.0-0.012) K/mm3 Nucleated RBC % (0.0-0.2) % Platelet Estimate (Adequate) Anisocytosis Ovalocytes Schistocytes Methemoglobin (0-1.5) %THb Sodium (137-145) mmol/L Potassium (3.4-5.0) mmol/L Chloride (98-107) mmol/L Carbon Dioxide (22-30) mmol/L Anion Gap (4-12) mmol/L BUN (9-20) mg/dL Creatinine (0.7-1.3) mg/dL Estim Creat Clear Calc ml/min Estimated GFR (59 - ) Glucose (65-110) mg/dL Lactic Acid Cancelled (0.7-2.0) mmol/L Calcium 8.3 L (8.4-10.2) mg/dL Total Bilirubin 1.2 (0.2-1.3) mg/dL AST 26 (17-59) U/L ALT 19 (6-50) U/L Alkaline Phosphatase 64 (38-126) U/L Troponin I 0.019 (0.000-0.034) ng/mL Total Protein 7.0 (6.3-8.2) g/dL Albumin 3.5 (3.5-5.1) g/dL Urine Color Dark yellow (Yellow) Urine Appearance Clear (Clear) Urine pH 5.5 (5.0-9.0) Ur Specific Radiant 1.025 (1.001-1.035) Urine Protein 3+ H (Negative) mg/dL Urine Glucose (UA) Negative (Negative) mg/dL Urine Ketones Negative (Negative) mg/dL Ur Blood (Man) Negative (Negative) Urine Nitrate Negative (Negative) Urine Bilirubin Negative (Negative) Urine Urobilinogen 1.0 (<2.0) mg/dL Leukocyte Esterase Rfl Negative (Negative) CECILIA/UL Urine RBC 0-2 (0-2) /hpf Urine WBC 0-5 (0-3) /hpf Ur Squamous Epith Cells None seen (Few) /hpf Urine Bacteria None seen /hpf Urine Casts 0-2 Influenza A (RT-PCR) (Negative) Influenza B (RT-PCR) (Negative) RSV (RT-PCR) (Negative) SARS-CoV-2 RNA (RT-PCR) (Negative) ABG Data ABG results: 12/23/24 12:22 Puncture Site Left brachial ABG pH 7.473 H ABG pCO2 31.1 L ABG pO2 79.4 L ABG PO2/FiO2 Ratio 2.84 ABG HCO3 22.3 ABG O2 Saturation 96.5 ABG O2 Content 16.9 ABG Base Excess -0.5 A-a Gradient 83.5 Oxyhemoglobin 94.8 Carboxyhemoglobin 1.2 Reduced Hemoglobin 4.0 Total Hemoglobin 12.6 O2 Delivery Device Nasal cannula O2 Liters/Min 2.0 FiO2 28 Discharge Plan Discharge Clinical Impression: Influenza A, Acute hypoxic respiratory failure Patient Disposition: Still a Patient Condition: Stable Patient Language: Belarusian Prescriptions: No Action Leydi Aerosphere 160-9-4.8 mcg/actuation HFA aerosol inhaler 1 inh INHALATION BID tramadol 50 mg tablet 50 mg PO PRN PRN (Reason: Pain) pravastatin 40 mg tablet 40 mg PO QPM metoprolol succinate 100 mg tablet extended release 24 hr 100 mg PO QPM acetaminophen 650 mg Tablet 650 mg PO Q4H PRN (Reason: Pain (Scale Score 1-3)) alprazolam 0.25 mg Tablet 0.25 mg PO HS PRN (Reason: Anxiety) pantoprazole 40 mg tablet,delayed release (DR/EC) 40 mg PO QPM diphenhydramine HCl [Benadryl] 25 mg Capsule 25 mg PO TID PRN (Reason: Itching) montelukast 10 mg tablet 10 mg PO DAILY fluticasone propionate 50 mcg/actuation [place],Suspension 2 spray INTRANASAL DAILY Rx Instructions: administer into each nostril loratadine [Claritin] 10 mg Tablet 10 mg PO DAILY valsartan-hydrochlorothiazide 320-25 mg tablet 1 tablet PO DAILY Centrum Silver Men 300-600-300 mcg Tablet 1 tablet PO DAILY melatonin 10 mg Tablet 10 mg PO HS Eliquis 5 mg tablet 5 mg PO Q12H Follow-up/Referrals: Reynaldo,BARRY Bertrand [Primary Care Provider] - Time of Disposition: 14:11
[2024-12-23] MEDS: ACETAMINOPHEN 500 MG TABLET 1000 MG PO (14:00)
[2024-12-23] MEDS: SODIUM CHLORIDE 0.9% IV 1,000 ML 999 ML IV CONT (14:02)
--- NOTE | 2024-12-23 14:09 | PM.IMHP ---
H&P: HPI History of Present Illness Date/Time: 12/23/24 14:09 Chief Complaint: Shortness of Breath Narrative: 79 y/o M presents here with shortness of breath with PMH of pAfib on anticoagulation, congestive heart failure, hypertension, spinal stenosis, CASTRO on CPAP, COPD, and aortic aneurysm (follows with vascular at?). The patient presents here from home via EMS for further evaluation of shortness of breath. He reports he began feeling generally unwell around 2 days ago. Shortness of breath began this morning. Shortness of breath is accompanied by a productive body aches, headache, chills, fatigue, and weakness. He denies fever, chest pain, dizziness, palpitations, nausea, vomiting or diarrhea. He currently has a supplemental O2 requirement - 2L NC at night. Now requiring 2L NC at rest during the day to maintain an O2 saturation above 92%. He denies sick contacts. Initial VS at presentation: 103? F, HR 96, RR 20, 144/71, and 92% on 2L NC. ED workup showed: WBC 11.0, hemoglobin 12.0 (previously 15.8 on 01/16/2024), ABG showed pH of 7.473/CO2 31.1/O2 79.4/O2 saturation 96.5% on 2L, creatinine 1.03 and GFR >60, glucose 292, lactic 3.3, and initial troponin 0.019. UA showed 3+ protein otherwise unremarkable. Patient positive for flu A. CXR showed mild atelectasis at the right lung base and cardiomegaly. Review of Systems Review of Systems: All systems reviewed & are unremarkable except as noted in HPI and below PMFSH Past Medical History Medical History Skin cancer s/p excision Kidney stones GERD (gastroesophageal reflux disease) Enlarged prostate Chronic obstructive pulmonary disease Congestive heart failure (CHF) Chronic anticoagulation Cardiomegaly Hypertension Anxiety Arthritis Spinal stenosis Obstructive sleep apnea on CPAP Aortic aneurysm Being monitored by a vascular surgeon in [place]. 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 No aneurysm. Paroxysmal atrial fibrillation Cardioversion x7, lesion in 2013 Surgical History Surgical History History of bilateral inguinal hernia repair History of bilateral cataract extraction History of cardiac radiofrequency ablation Family History Family History Father Heart problem Lung cancer Hernia Sibling Heart problem Family history of heart disease in male family member before age 55 Breast cancer Uterine cancer Mother Hypertension Diabetes mellitus Anemia Social History Social History Social History: Surrogate medical decision maker: Maria D Russ, spouse. Code status: Full code. Smoking packs per day: 1 Smoking cigarettes per day: 20.0 Years smoked: 33 Smoking pack-years: 33.00 Smoking status: Former smoker Alcohol intake: current Drinks per week: 1 Substance use: never Substance use type: does not use Do You Feel Safe in your Home?: Yes Lack of Transportation: No Lack of Food: Never True Current Housing: I Have Housing Concerned About Future Housing: No Difficulty Paying Gas/Electric Bills: No Difficulty Paying for Meds: No Currently Unemployed: No Education: Bachelor's Degree Difficulty w/ Childcare or Family Care: No Living arrangements: with family Spiritual care concerns: No Meds Home Medications and Allergies Home Medications ?Medication ?Instructions ?Recorded ?Confirmed ?Type acetaminophen 650 mg tablet 650 mg PO Q6H PRN pain 09/24/22 12/23/24 History alprazolam 0.25 mg tablet 0.25 mg PO HS PRN Anxiety 09/24/22 12/23/24 History apixaban 5 mg tablet (Eliquis) 5 mg PO Q12H 09/24/22 12/23/24 History diphenhydramine HCl 25 mg capsule 25 mg PO TID PRN Itching 09/24/22 12/23/24 History (Benadryl) fluticasone propionate 50 2 spray intranasal DAILY 09/24/22 12/23/24 History mcg/actuation nasal spray,suspension loratadine 10 mg tablet (Claritin) 10 mg PO DAILY 09/24/22 12/23/24 History melatonin 10 mg tablet 10 mg PO HS 09/24/22 12/23/24 History metoprolol succinate 100 mg 25 mg PO QPM 09/24/22 12/23/24 History tablet,extended release 24 hr montelukast 10 mg tablet 10 mg PO DAILY 09/24/22 12/23/24 History xjacocnp-bi-sweaw 300 mcg-K 60 1 tablet PO DAILY 09/24/22 12/23/24 History mcg-lycop 600 mcg-lutein 300 mcg tablet ([facility]) pantoprazole 40 mg tablet,delayed 40 mg PO QPM 09/24/22 12/23/24 History release pravastatin 40 mg tablet 40 mg PO QPM 09/24/22 12/23/24 History valsartan 320 1 tablet PO DAILY 09/24/22 12/23/24 History mg-hydrochlorothiazide 25 mg tablet budesonide 160 mcg-glycopyr 9 1 inh inhalation BID 08/15/23 12/23/24 History mcg-formot 4.8 mcg/actuation HFA inhaler (Breztri Aerosphere) clopidogrel 75 mg tablet 75 mg PO DAILY 12/23/24 12/23/24 History escitalopram oxalate 10 mg tablet 10 mg PO DAILY 12/23/24 12/23/24 History furosemide 40 mg tablet 40 mg PO DAILY 12/23/24 12/23/24 History gabapentin 100 mg capsule 100 mg PO TID 12/23/24 12/23/24 History naltrexone 1.5 mg capsule 1.5 mg PO DAILY 12/23/24 12/23/24 History trazodone 100 mg tablet 100 mg PO HS 12/23/24 12/23/24 History Allergies Allergy/AdvReac Type Severity Reaction Status Date / Time nirmatrelvir (From Paxlovid AdvReac Insomnia Verified 01/16/24 16:35 (EUA)) ritonavir (From Paxlovid AdvReac Insomnia Verified 01/16/24 16:35 (EUA)) Vital Signs Vital Signs - 24 hr 12/23/24 11:20 12/23/24 11:30 Temperature 103 F H Pulse Rate 96 Respiratory Rate 20 Blood Pressure 144/71 H Pulse Oximetry 92 92 Oxygen Delivery Nasal Cannula Nasal Cannula Oxygen Flow Rate 2 2 Exam Const: General: comfortable and no acute distress Other: , male, obese body habitus, ill-appearing HENMT: Face/Nose/Sinus: Normal nares present Mouth: Yes moist mucous membranes Eyes: General: appearance normal, both eyes and all related structures Sclera: sclerae normal Pupils: Equal, round and reactive pupils present EOM: EOMs intact bilaterally Resp: Other: wheezing on right, crackles in left lung base. wet upper airway sounds, wet cough. tachypnea without increased WOB or distress. Cardio: Rate: regular rate Rhythm: regular rhythm Other: S1-S2 present without murmur, rub, ectopy GI: Other: Abdomen rounded, soft, nontender. Normoactive bowel sounds in all quadrants. Skin: General skin exam: normal color and no rashes or lesions noted Wounds: no wounds Neuro: Speech: normal speech Motor exam (neuro): 5/5 motor strength present throughout Sensory Exam: normal sensation Other: A&O x4 Extrem: General: normal to inspection Psych: Mental Status: mental status grossly normal Affect: normal affect Other: Good insight and judgment, pleasant H&P: Results Labs Labs: Short CBC 12/23/24 Range/Units 12:35 WBC 11.0 H (4.5-10.0) K/mm3 Hgb 12.0 L D (14.0-18.0) g/dL Hct 37.9 L (42.0-52.0) % Plt Count 191 D (150-375) k/mm3 BMP 12/23/24 12:35 Sodium 138 Potassium 4.7 Chloride 100 Carbon Dioxide 28 BUN 23 H D Creatinine 1.03 Glucose 119 H Calcium 8.3 L Cardiac Enzymes 12/23/24 Range/Units 12:35 Troponin I 0.019 (0.000-0.034) ng/mL Liver Function 12/23/24 Range/Units 12:35 Total Bilirubin 1.2 (0.2-1.3) mg/dL AST 26 (17-59) U/L ALT 19 (6-50) U/L Alkaline Phosphatase 64 (38-126) U/L Albumin 3.5 (3.5-5.1) g/dL Urine 12/23/24 Range/Units 12:40 Urine Color Dark yellow (Yellow) Urine Appearance Clear (Clear) Urine pH 5.5 (5.0-9.0) Ur Specific [place] 1.025 (1.001-1.035) Urine Protein 3+ H (Negative) mg/dL Urine Glucose (UA) Negative (Negative) mg/dL Assessment and Plan Assessment and plan (1) Acute hypoxic respiratory failure: Code(s): J96.01 - Acute respiratory failure with hypoxia Status: Acute Assessment and Plan: - CXR negative for pulmonary edema or pneumonia - baseline requirement at 2 L at night, now requiring 2 L at rest during daytime hours to maintain O2 saturation above 92%. Continue supplemental O2 to maintain O2 saturation greater than 92%, wean as tolerated. - suspect new to hypoxic respiratory failure secondary to influenza a, no pneumonia on CXR. Will continue supportive care. Complicated by COPD history. (2) Influenza A: Code(s): J10.1 - Influenza due to other identified influenza virus with other respiratory manifestations Status: Acute Assessment and Plan: - tested positive for influenza A on 12/23 - CXR: 1. Mild atelectasis at right lung base. 2. Cardiomegaly. - Tamiflu 75 mg BID - supportive care: Tylenol p.r.n. Mucinex lisa DuoNeb p.r.n. Tessalon Perles p.r.n. Lozenge p.r.n. - IV fluids: 1 L bolus - monitor WBC/CBC - currently requiring increased supplemental O2: 2L at night -> 2L at rest during day time hours (3) COPD (chronic obstructive pulmonary disease): Qualifiers: COPD type: COPD with acute exacerbation Qualified Code(s): J44.1 - Chronic obstructive pulmonary disease with (acute) exacerbation Code(s): J44.9 - Chronic obstructive pulmonary disease, unspecified Status: Chronic Assessment and Plan: - DuoNebs scheduled - steroids - add doxycycline N p.o. b.i.d. - continue home inhalers (4) Paroxysmal atrial fibrillation: Code(s): I48.0 - Paroxysmal atrial fibrillation Status: Chronic Assessment and Plan: - EKG, initial: AFib, rate 91, left axis deviation, low QRS voltage in precordial leads, pattern consistent with pulmonary disease, moderate ST depression, abnormal QRS-T angle. Awaiting formal read. - continue home medications: Metoprolol 25 mg b.i.d. (5) Hypertension: Qualifiers: Hypertension type: primary hypertension Qualified Code(s): I10 - Essential (primary) hypertension Code(s): I10 - Essential (primary) hypertension Status: Chronic Assessment and Plan: - chronic, currently 144/71 - continue home medications: Valsartan-hydrochlorothiazide 320-25 daily - monitor (6) Obstructive sleep apnea on CPAP: Code(s): G47.33 - Obstructive sleep apnea (adult) (pediatric); Z99.89 - Dependence on other enabling machines and devices Status: Chronic Assessment and Plan: - continue home BiPAP Plan Diet: Heart healthy GI Prophylaxis: Not currently indicated DVT Prophylaxis: Eliquis Lines: Peripheral Code Status: Full code Quality VTE Prophylaxis VTE prophylaxis: pharmacologic ordered Hospitalist [facility] Advance Care Plan I have confirmed that the patient's Advanced Care Plan is present, code status is documented, or surrogate decision maker is listed in patient medical record.: Yes Medication Reconciliation I have utilized all available resources to obtain, update and review the patients current medications (includes all prescriptions, OTC, herbals, cannabis, and nutritional supplements).: Yes
[2024-12-23] MEDS: OSELTAMIVIR PHOSPHATE 75 MG CAPSULE PO ×2 (15:16→20:42)
[2024-12-23] MEDS: guaiFENesin 12 HR 600 MG TABCR PO ×2 (15:32→20:41)
[2024-12-23 15:38] LABS: NT Pro B Type Natriuretic Pept 4700 pg/mL (19.9-100)
[2024-12-23 15:41] LABS: Reflex Lactic Acid Yes or No Add Lactic
--- NOTE | 2024-12-23 15:41 | ECG_ITS ---
Test Date: 2024-12-23 15:49:59 Measurements Intervals [place] Rate: 89 P: 0 [place]: 0 QRS: -41 QRSD: 90 T: 75 QT: 369 QTc: 450 Interpretive Statements ATRIAL FIBRILLATION MARKED LEFT AXIS DEVIATION [QRS AXIS < -30] LOW QRS VOLTAGE IN PRECORDIAL LEADS [QRS DEFLECTION < 1.0 mV IN CHEST LEADS] PATTERN CONSISTENT WITH PULMONARY DISEASE MODERATE ST DEPRESSION [0.05+ mV ST DEPRESSION] Compared to ECG 12/23/2024 12:14:58 No significant changes Electronically Signed On 12-24-2024 11:51:23 TERMINAL CARMAN by Cher Vergara
--- NOTE | 2024-12-23 16:20 | ADMGEN ---
This patient, Billy Russ, was admitted to Medical Room 345-01. Patient/family oriented to hospital policies and general routines including ID bracelet, bed and alarms, visiting hours, pain management, procedures, bathroom and other care routines, personal items, smoking policy, room service/diet, and visiting hours. Information on how to activate the Rapid Response Team has been discussed. Patient/Family are encouraged to report perceived risks to care and to ask questions if they do not understand what they are told or what they should do.
[2024-12-23 16:21] LABS: Troponin I 0.043 ng/mL (0.000-0.034)
[2024-12-23 17:10] LABS: Lactic Acid 1.3 mmol/L (0.7-2.0)
[2024-12-23] MEDS: SODIUM CHLORIDE 0.9% IV 1,000 ML 125 ML IV CONT (18:26)
[2024-12-23 19:32] LABS: Troponin I 0.047 ng/mL (0.000-0.034)
[2024-12-23] MEDS: IPRATROPIUM 0.5 MG/ALBUTEROL SULFATE 2.5 MG AMPUL.NEB 3 ML INHALATION (20:02)
[2024-12-24] VITALS (18 sets, daily range): BP systolic 117–148; BP diastolic 72–81; PULSE 83–99; RESP 17–20; TEMP 36.3–36.7; O2SAT 95–98
[2024-12-24] MEDS: IPRATROPIUM 0.5 MG/ALBUTEROL SULFATE 2.5 MG AMPUL.NEB 3 ML INHALATION ×4 (02:02→21:24)
--- NOTE | 2024-12-24 02:49 | PC.NURSE ---
IV fluids DC per hospitalist Jignesh Sharp
--- OUTSIDE RECORDS SUMMARY | 2024-12-24 04:49 | XMS_ITS | Referral Summary ---
Author Organization [facility] Address [address] [place] [address] Care Team Providers Care Warehouse Unloader Name Role Phone Odin Alex MD Primary Care Provider [phone] Leo Wang MD Unavailable [phone] Source Comments [facility],non-owned Affiliates and Associated Physician Practices is amultiple site organization consisting of ambulatory clinics and hospital sitesin [place], [place], [place] and [place]. This disclosure is being madepursuant to the Care Everywhere program and may not contain all information available regarding this patient. Last updated 18.[facility] Encounters Date Type Department Care Team Description 12/15/2024 Telephone [facility] Pulmonology [address] [place] [id number] Leo Wang MD [facility] 12/13/2024 2:30 PM REFRIGERATION ENGINEER - 12/13/2024 11:59 PM REFRIGERATION ENGINEER Hospital Encounter [facility] Imaging Services - Radiology [address] [place], [place] [id number] Leo Wang MD Discharge Disposition: Home or Self Care 12/13/2024 Travel 12/13/2024 3:30 PM REFRIGERATION ENGINEER Office Visit [facility] Pulmonology [id number] [place] [address] [address] [place], [place] [id number] Leo Wang MD Chronic respiratory failure with hypoxia (HCC) (Primary Dx); COPD, 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 (28% of pred from 08/2022 with significant reversible component).; CASTRO treated with BiPAP; Nodule of lower lobe of left lung - 4 mm, indeterminate and unchanged on last OSH chest CT.; History of tobacco abuse; History of COVID-19; Coronary artery disease involving [place] coronary artery of [place] heart without angina pectoris; Hypertension, unspecified type; PAF (paroxysmal atrial fibrillation) (HCC); Chronic anticoagulation; Obesity (BMI 30-39.9) 10/20/2024 Refill [facility] - Pulmonology [id number] [place], [place] [id number] Leo Wang MD Refill Request from Last 3 Months Allergies No known active allergies Medications * Be aware that medications may not be up to date on this document. Alwaysverify current medications with the patient. Medication Sig Dispensed Refills Start Date End Date Status pantoprazole EC (PROTONIX) 40 MG tablet Take 1 (one) tablet by mouth once daily 1 04/03/2019 Active pravastatin (PRAVACHOL) 40 MG tablet Take 1 (one) tablet by mouth at bedtime Active metoprolol succinate XL 24hr (TOPROL XL) 100 MG tablet Take 25 mg by mouth once daily 11/05/2020 Active diphenhydrAMINE (BENADRYL) 25 MG capsule Take 1 (one) capsule by mouth every 6 hours as needed Active Melatonin 10 MG Take 10 (ten) mg by mouth every evening Active multivitamins (ONE A DAY) capsule Take 1 (one) capsule by mouth once daily Active valsartan-hydroCH LOROthiazide (Diovan HCT) 320-25 MG tablet Take 1 (one) tablet by mouth once daily Active acetaminophen (Tylenol) 500 MG tablet Take 1 (one) tablet by mouth 2 times daily Maximum allowable Acetaminophen amount = 4 Grams (4000 mg) / 24 hours. Active loratadine (Claritin) 10 MG tablet Take 1 (one) tablet by mouth once daily Active fluticasone propionate (Flonase) 50 MCG/ACT nasal spray [place] 2 (two) sprays into each nostril once daily as needed Active zolpidem (Ambien) 5 MG tablet Take 1 tablet my mouth at night as directed, may repeat x 1 if needed. 2 tablet 03/07/2023 Active Additional Information Patient not taking.Reported on 12/13/2024 escitalopram (Lexapro) 10 MG tablet 02/23/2024 Active gabapentin (Neurontin) 100 MG capsule TAKE 1 CAPSULE BY MOUTH ONCE DAILY FOR 3 DAYS THEN TWICE DAILY FOR 3 DAYS THEN THREE TIMES DAILY 01/01/2024 Active imiquimod (Aldara) 5 % cream APPLY CREAM TOPICALLY TO FOREHEAD AT NIGHT AND THEN WASH OFF IN THE MORNING FOR 2 WEEKS ON, 2 WEEKS OFF, THEN 2 WEEKS AGAIN 11/03/2023 Active montelukast (Singulair) 10 MG tablet Take 1 tablet by mouth once daily 90 tablet 2 04/07/2024 Active Breztri Aerosphere 160-9-4.8 MCG/ACT inhalerIndication s:Chronic obstructive pulmonary disease, unspecified COPD type (HCC) Inhale 2 puffs by mouth twice daily 32.1 g 1 07/27/2024 Active ALPRAZolam (Xanax) 0.25 MG tablet Take 1 (one) tablet by mouth at bedtime 08/19/2024 Active naltrexone (Revia) 1.5 MG capsule Take 1 (one) capsule by mouth once daily 08/18/2024 Active furosemide (Lasix) 40 MG tablet Take 1 (one) tablet by mouth once daily 07/27/2024 Active Atrovent HFA 17 MCG/ACT inhaler Inhale 2 (two) puffs by mouth 4 times daily 09/06/2024 Active albuterol HFA (Proventil; Ventolin; Proair) 108 (90 Base) MCG/ACT inhaler INHALE 2 PUFFS BY MOUTH EVERY 6 HOURS NEEDED 18 g 5 10/20/2024 Active traZODone (Desyrel) 100 MG tablet Take 1 (one) tablet by mouth at bedtime 11/19/2024 Active aspirin (Aspirin) 81 MG chew tablet Take 1 (one) tablet by mouth once daily 11/26/2024 5 Active Plavix 75 MG tablet Take 1 (one) tablet by mouth once 11/25/2024 Active apixaban (ELIQUIS) 5 MG tablet Take 1 (one) tablet by mouth 2 times daily 5 Discontinue d(List Clean-Up) Active Problems Problem Noted Date Diagnosed Date COVID-19 05/24/2022 Disorder of prostate 03/26/2022 Abdominal aortic aneurysm (AAA) 03/11/2022 Edema 03/11/2022 Dissection of abdominal aorta 12/27/2021 Spinal stenosis of lumbar region 11/27/2021 Gastroesophageal reflux disease 11/02/2021 Benign essential hypertension 11/02/2021 Left inguinal hernia 11/02/2021 Osteoarthrosis 11/02/2021 Raised prostate specific antigen 11/02/2021 Rectal hemorrhage 11/02/2021 Obstructive sleep apnea syndrome 08/01/2021 Permanent atrial fibrillation 06/07/2021 Obesity 03/05/2021 Anxiety 11/07/2020 Hyperlipidemia 06/22/2019 Overview (11/02/2021): Last Assessment & Plan: On chronic lipid lowering therapy with good control. No changes made. COPD (chronic obstructive pulmonary disease) Asthma 05/26/2018 Atypical atrial flutter 07/27/2017 Anticoagulation management encounter 06/28/2017 Overview (11/02/2021): Last Assessment & Plan: He remains anticoagulated on Eliquis 5 mg twice daily.He has a [id number] score of 2, therefore it is recommended that he remain anticoagulated for thromboprophylaxis. senior living current use of antiarrhythmic drug Overview (11/02/2021): Last Assessment & Plan: The patient's ECG today does not indicate any changes that would prohibit the use of Sotalol. As long as they remain on this medication, an ECG will be performed every 6 months for monitoring. S/P ablation of atrial fibrillation 06/28/2017 Immunizations Name Administration Dates Next Due INFLUENZA VACCINE, TRIV. (AF LURIA, FLUZONE TRIVALENT; 6MO+) (IIV3) 10/21/2014,10/21/2014,10/08/2013,2012 Covid BiggiFi primary monoval ent 12+ yr 0.3mL Purple cap 03/18/2022,08/30/2021,02/25/2021,2020 FLU VACCINE QUAD IIV4 SPLIT 0.25 ML IM 08/30/2021,10/20/2015,10/20/2015 INFLUENZA VACCINE 11/04/2022,08/30/2021,11/07/20 20 INFLUENZA VACCINE, HIGH-DOSE , QUADR. (FLUZONE HIGH-DOSE QUADRIVALENT; 65Y+), 0.7 ML (HD-IIV4) 09/09/2024,10/30/2023,08/26/2023,2019,09/25/2018,09/25/2018,09/09/2017,1 INFLUENZA VACCINE, QUADR. (F LUZONE; FLULAVAL; FLUARIX; AFLURIA QUADRIVALENT; 6MO+), 0.5 ML (IIV4) 10/29/2016,10/29/2016 PNEUMOCOCCAL PCV20 CONJ VAC IM 08/13/2023 PNEUMOCOCCAL PPSV23 09/01/2011 Pneumococcal Pcv13 Conj 01/03/2015,01/03/2015 Social History Tobacco Use Types Packs/Day Years Used Date Smoking Tobacco: Former Cigarettes 1 20 0 04/12/1981 - 04/12/2001 Smokeless Tobacco: Former Tobacco Cessation:Counseling Given: Not Answered Alcohol Use Standard Drinks/Week Comments Not Currently 0 (1 standard drink = 0.6 oz pur e alcohol) PHQ-2 Answer Date Recorded Patient Health Questionnaire-2 Score 0 08/24/2024 Sex and Gender Information Value Date Recorded Sex Assigned at Male 05/31/2021 11:18 AM CDT Gender Identity Male 05/31/2021 11:18 AM CDT Sexual Orientation Straight 05/31/2021 11 :18 AM CDT Last Filed Vital Signs Vital Sign Reading Time Taken Comments Blood Pressure 126/80 12/13/2024 3:36 PM REFRIGERATION ENGINEER Pulse 82 12/13/2024 3:36 PM REFRIGERATION ENGINEER Temperature 36.3 ??C (97.4 ??F) 12/13/2024 3:36 PM CS T Respiratory Rate 20 12/13/2024 3:36 PM REFRIGERATION ENGINEER Oxygen Saturation 96% 12/13/2024 3:36 PM REFRIGERATION ENGINEER room air Inhaled Oxygen Concentration - - Weight 119.3 kg (263 lb) 12/13/2024 3:36 PM REFRIGERATION ENGINEER Height 182.9 cm (6') 12/13/2024 3:36 PM REFRIGERATION ENGINEER Body Mass Index 35.67 12/13/2024 3:36 PM REFRIGERATION ENGINEER Plan of Treatment Upcoming Encounters Date Type Department Care Team (Late st Contact Info) Description 04/05/2025 1:00 PM CDT Office Visit [facility] - Pulmonology [address] [place] [address] [place] [id number] [place] [address] Procedures Procedure Name Priority Date/Time Associated Diagnosis Comments XR CHEST 2VW Routine 12/13/2024 2:58 PM REFRIGERATION ENGINEER Dyspnea, unspecified type Acute on chronic diastolic heart failure (HCC) Chronic respiratory failure with hypoxia (HCC) COPD, 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 (28% of pred from 08/2022 with significant reversible component). CASTRO treated with BiPAP Nodule of lower lobe of left lung - 4 mm, indeterminate and unchanged on last OSH chest CT. History of tobacco abuse VASCULAR LAB ORDER 11/30/2024 CARDIAC CATH REPORT 11/18/2024 PR CARDIAC RESULTS ORDER 10/14/2024 from Last 3 Months Results * XR Chest 2Vw (12/13/2024 2:58 PM REFRIGERATION ENGINEER) Anatomical Region Laterality Modality Chest Computed Radiogr aphy 12/13/2024 3:01 PM REFRIGERATION ENGINEER Impressions 12/13/2024 3:01 PM REFRIGERATION ENGINEER IMPRESSION: No acute disease. > Interpreting Provider: Jean-Pierre Sepulveda MD on 12/13/2024 3:01 PM Narrative 12/13/2024 3:01 PM REFRIGERATION ENGINEER Chest Two Views History: R06.00: Dyspnea, unspecified I50.33: Acute on chronic diastolic (congestive) heart failure (HCC) J96.11: Chronic respiratory failure with hypoxia (HCC) J44.9: Chronic obstructive pulmonary disease, unspecified (HCC) G47.33: Obstructive sleep apnea (adult) (pediatric) R91.1: Solitary pulmonary nodule Z87.891: Personal history of nicotine dependence FINDINGS: The lungs are clear. No pleural effusion or pneumothorax seen. Cardiomegaly noted. Procedure Note Jean-Pierre Sepulveda MD - 12/13/2024 Chest Two Views History: R06.00: Dyspnea, unspecified I50.33: Acute on chronic diastolic (congestive) heart failure ([facility]) J96.11: Chronic respiratory failure with hypoxia ([facility]) J44.9: Chronic obstructive pulmonary disease, unspecified (HCC) G47.33: Obstructive sleep apnea (adult) (pediatric) R91.1: Solitary pulmonary nodule Z87.891: Personal history of nicotine dependence FINDINGS: The lungs are clear. No pleural effusion or pneumothorax seen. Cardiomegaly noted. IMPRESSION: No acute disease. > Interpreting Provider: Jean-Pierre Sepulveda MD on 12/13/2024 3:01 PM Leo Wang MD DIAGNOSTIC EDUIN Delgado ORDERABLES * VASCULAR LAB ORDER (11/30/2024) Anatomical Region Laterality Modality Other 11/30/2024 Narrative 11/30/2024 Ordered by an unspecified provider. Scanned Document VASCULAR LAB ORDERAB LES * CARDIAC CATH REPORT (11/18/2024) 11/18/2024 Narrative 11/18/2024 Ordered by an unspecified provider. Scanned Document SCANNING ONLY * NM CARDIAC RESULTS ORDER (10/14/2024) Anatomical Region Laterality Modality Other 10/14/2024 Narrative 10/14/2024 Ordered by an unspecified provider. Scanned Document NM ORDERABLES from Last 3 Months Care Teams Warehouse Unloader Relationship Specialty Start Date End Date Odin Alex MD [address] [place] [address] [address] [place] [address] PCP - General Internal Medicine 04/12/19 [place] [id number] [address] [place] [id number] Pulmonary Disease 05/09/22
--- OUTSIDE RECORDS SUMMARY | 2024-12-24 04:49 | XMS_ITS | Patient Health Summary ---
Author Organization [facility] Address [address] [place] [address] Care Team Providers Care It Security Architect Name Role Phone Odin Alex MD Primary Care Provider [phone] Leo Wang MD Unavailable [phone] Note from [facility],non-owned Affiliates and Associated Physician Practices is amultiple site organization consisting of ambulatory clinics and hospital sitesin [place], [place], [place] and [place]. This disclosure is being madepursuant to the Care Everywhere program and may not contain all information available regarding this patient. Last updated 18.[facility] Allergies No known active allergies Medications * Be aware that medications may not be up to date on this document. Alwaysverify current medications with the patient. * pantoprazole EC (PROTONIX) 40 MG tablet(Started 04/03/2019) Take 1 (one) tablet by mouth once daily 1 refill left * pravastatin (PRAVACHOL) 40 MG tablet Take 1 (one) tablet by mouth at bedtime * metoprolol succinate XL 24hr (TOPROL XL) 100 MG tablet(Started 11/05/2020) Take 25 mg by mouth once daily * diphenhydrAMINE (BENADRYL) 25 MG capsule Take 1 (one) capsule by mouth every 6 hours as needed * Melatonin 10 MG Take 10 (ten) mg by mouth every evening * multivitamins (ONE A DAY) capsule Take 1 (one) capsule by mouth once daily * valsartan-hydroCHLOROthiazide (Diovan HCT) 320-25 MG tablet Take 1 (one) tablet by mouth once daily * acetaminophen (Tylenol) 500 MG tablet Take 1 (one) tablet by mouth 2 times daily Maximum allowable Acetaminophen amount = 4 Grams (4000 mg) / 24 hours. * loratadine (Claritin) 10 MG tablet Take 1 (one) tablet by mouth once daily * fluticasone propionate (Flonase) 50 MCG/ACT nasal spray [place] 2 (two) sprays into each nostril once daily as needed * zolpidem (Ambien) 5 MG tablet(Started 03/07/2023) Take 1 tablet my mouth at night as directed, may repeat x 1 if needed. * escitalopram (Lexapro) 10 MG tablet(Started 02/23/2024) * gabapentin (Neurontin) 100 MG capsule(Started 01/01/2024) TAKE 1 CAPSULE BY MOUTH ONCE DAILY FOR 3 DAYS THEN TWICE DAILY FOR 3 DAYS THEN THREE TIMES DAILY * imiquimod (Aldara) 5 % cream(Started 11/03/2023) APPLY CREAM TOPICALLY TO FOREHEAD AT NIGHT AND THEN WASH OFF IN THE MORNING FOR 2 WEEKS ON, 2 WEEKSOFF, THEN 2 WEEKS AGAIN * montelukast (Singulair) 10 MG tablet(Started 04/07/2024) Take 1 tablet by mouth once daily 2 refills by 04/07/2025 * Breztri Aerosphere 160-9-4.8 MCG/ACT inhaler(Started 07/27/2024) Inhale 2 puffs by mouth twice daily 1 refill by 07/27/2025 * ALPRAZolam (Xanax) 0.25 MG tablet(Started 08/19/2024) Take 1 (one) tablet by mouth at bedtime * naltrexone (Revia) 1.5 MG capsule(Started 08/18/2024) Take 1 (one) capsule by mouth once daily * furosemide (Lasix) 40 MG tablet(Started 07/27/2024) Take 1 (one) tablet by mouth once daily * Atrovent HFA 17 MCG/ACT inhaler(Started 09/06/2024) Inhale 2 (two) puffs by mouth 4 times daily * albuterol HFA (Proventil; Ventolin; Proair) 108 (90 Base) MCG/ACT inhaler (Started 10/20/2024) INHALE 2 PUFFS BY MOUTH EVERY 6 HOURS NEEDED 5 refills by 10/20/2025 * traZODone (Desyrel) 100 MG tablet(Started 11/19/2024) Take 1 (one) tablet by mouth at bedtime * aspirin (Aspirin) 81 MG chew tablet(Started 11/26/2024) Take 1 (one) tablet by mouth once daily * Plavix 75 MG tablet(Started 11/25/2024) Take 1 (one) tablet by mouth once Ended Medications* apixaban (ELIQUIS) 5 MG tablet(Discontinued) Take 1 (one) tablet by mouth 2 times daily Active Problems Problem Noted Date Diagnosed Date [...] 06/07/2021 Obesity 03/05/2021 Anxiety 11/07/2020 Hyperlipidemia 06/22/2019 COPD (chronic obstructive pulmonary disease) Asthma 05/26/2018 Atypical atrial flutter 07/27/2017 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 (AFLURIA, FLUZONE TRIVALENT; 6MO+) (IIV3)(Given 10/21/2014, 10/21/2014, 10/08/2013, 10/08/2013) * Covid Pfizer primary monovalent 12+ yr 0.3mL Purple cap(Given 03/18/2022, 08/30/2021, 02/25/2021, 02/04/2021) * FLU VACCINE QUAD IIV4 SPLIT 0.25 ML IM(Given 08/30/2021, 10/20/2015, 10/20/2015) * INFLUENZA VACCINE(Given 11/04/2022, 08/30/2021, 11/07/2020) * INFLUENZA VACCINE, HIGH-DOSE, QUADR. (FLUZONE HIGH-DOSE QUADRIVALENT; 65Y+), 0.7 ML (HD-IIV4)(Given 09/09/2024, 10/30/2023, 08/26/2023, 12/07/2019, 09/25/2018, 09/25/2018, 09/09/2017, 09/09/2017) * INFLUENZA VACCINE, QUADR. (FLUZONE; FLULAVAL; FLUARIX; AFLURIA QUADRIVALENT; 6MO+), 0.5 ML (IIV4)(Given 10/29/2016, 10/29/2016) * PNEUMOCOCCAL PCV20 CONJ VAC IM(Given 08/13/2023) * PNEUMOCOCCAL PPSV23(Given 09/01/2011) * Pneumococcal Pcv13 Conj(Given 01/03/2015, 01/03/2015) Social History Tobacco Use Types Packs/Day Years [...] Comments Blood Pressure 126/80 12/13/2024 3:36 PM BOLT MACHINE OPERATOR Pulse 82 12/13/2024 3:36 PM BOLT MACHINE OPERATOR Temperature 36.3 ??C (97.4 ??F) 12/13/2024 3:36 PM CS T Respiratory Rate 20 12/13/2024 3:36 PM BOLT MACHINE OPERATOR Oxygen Saturation 96% 12/13/2024 3:36 PM BOLT MACHINE OPERATOR room air Inhaled Oxygen Concentration - - Weight 119.3 kg (263 lb) 12/13/2024 3:36 PM BOLT MACHINE OPERATOR Height 182.9 cm (6') 12/13/2024 3:36 PM BOLT MACHINE OPERATOR Body Mass Index 35.67 12/13/2024 3:36 PM BOLT MACHINE OPERATOR Procedures * XR CHEST 2VW(Performed 12/13/2024) Performed for Dyspnea, unspecified type, Acute on chronic diastolic heart failure (HCC), Chronic respiratory failure with hypoxia (HCC), COPD, 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 (28% of pred from 08/2022 with significant reversible component)., CASTRO treated with BiPAP, Nodule of lower lobe of left lung - 4 mm, indeterminate and unchanged on last OSH chest CT., History of tobacco abuse * VASCULAR LAB ORDER(Performed 11/30/2024) * CARDIAC CATH REPORT(Performed 11/18/2024) * NM CARDIAC RESULTS ORDER(Performed 10/14/2024) * REDUCED POLYSOMNOGRAPHY 4 OR MORE PARAMETERS WITHOUT CPAP(Performed 03/27/2023) Performed for Chronic obstructive pulmonary disease, unspecified COPD type (HCC), Permanent atrial fibrillation (HCC), Obstructive sleep apnea syndrome * DERMATOPATHOLOGY(Performed 01/03/2023) Performed for Neoplasm of uncertain behavior of skin * XR CHEST 2VW(Performed 08/23/2022) Performed for COPD, severe with baseline FEV1 of 1.32L (37% pred) from 2019 with significant reversible component., History of tobacco abuse * COMPLETE PFT W/WO BRONCHODILATOR(Performed 08/23/2022) Performed for Dyspnea, unspecified type, COPD, severe with baseline FEV1 of 1.32L (37% pred) from 2019 with significant reversible component., History of tobacco abuse * XR CHEST 2VW(Performed 11/01/2021) Performed for Chronic obstructive pulmonary disease, unspecified COPD type (HCC) * REDUCED POLYSOMNOGRAPHY 4 OR MORE PARAMETERS WITHOUT CPAP(Performed 07/16/2021) Performed for CASTRO (obstructive sleep apnea) * COMPLETE PFT W/WO BRONCHODILATOR(Performed 04/23/2019) Performed for Chronic obstructive pulmonary disease, unspecified COPD type (HCC) Results * XR Chest 2Vw (12/13/2024 2:58 PM BOLT MACHINE OPERATOR) Only the most recent of3 resultswithin the time period is included. Anatomical Region Laterality Modality Chest Computed Radiogr aphy 12/13/2024 3:01 PM BOLT MACHINE OPERATOR Impressions 12/13/2024 3:01 PM BOLT MACHINE OPERATOR IMPRESSION: No acute disease. > Interpreting Provider: Jean-Pierre Sepulveda MD on 12/13/2024 3:01 PM Narrative 12/13/2024 3:01 PM BOLT MACHINE OPERATOR Chest Two Views History: R06.00: Dyspnea, unspecified [...] 3:01 PM Leo Wang MD DIAGNOSTIC EDUIN G ORDERABLES * VASCULAR LAB ORDER (11/30/2024) Anatomical [...] an unspecified provider. Scanned Document NM ORDERABLES * CPAP/BIPAP TITRATION (03/27/2023 11:59 PM CDT) Narrative [facility] CAITQUIST - 03/27/2023 11:59 PM CDT Aminah Gaxiola MD ? 04/04/2023 ??4:18 PM [facility] Sleep Services [facility] CPAP TITRATION POLYSOMNOGRAPHY REPORT Name: ??Mesfin Castañeda Date of : 1945 Date of Test: ??03/26/2023 Date of interpretation: 04/01/2023 Referring Physician: Chilango Irwin NP CLINICAL INDICATION: ?? Patient with a diagnosis of severe sleep apnea established with a prior home sleep study with AHI of 33/ hr. ??On auto CPAP at 10-18 cm water with download showing increased AHI of more than 10 and with concern for central apnea and this study is for titration. Patient took 5 mg of Ambien before sleep. PROCEDURE: Overnight metal room dental technician attended polysomnography was carried out utilizing continuous digital monitoring at the [facility] [place] with a CPAP titration Protocol. Montage included measurements of EEG (electroencephalography), EOG (electro-oculography), EMG (electromyography), EKG, nasal and oral airflow, respiratory effort, (abdominal and rib cage movement), oxygen saturation, snoring sounds, body position, video monitoring and leg movements. All data was visually scored and analyzed by standard criteria. All events are scored according to the current AASM criteria. ??IA. Hypopneas have a 30% reductions in air flow signals with a ?3% oxygen desaturation from pre-event baseline or the event is associated with an arousal. IB Hypopneas have a 30% reductions in air flow signals with a ?4% oxygen desaturation from pre-event baseline. FINDINGS: Sleep architecture: Light out 22:14 pm with light on 04:25 am. Total recording time was 371.5 minutes with total sleep time of 243.5 minutes. TST in supine is 132.5 minutes. Sleep latency is 9 minutes with a sleep efficiency of 65.5% which is below normal .This may be related to the unfamiliar environment of the sleep center (First night effect), Total number of arousals were 300 with arousal index of 73.9 per hour. Sleep is fragmented due to combination of respiratory events and spontaneous arousals. Sleep Stages N1 ?? Sleep: 1.4% N2 ?? Sleep: 95.9 % N3 ?? Sleep: 2.7 % REM Sleep: ?0% Respiratory monitoring: ?? CPAP titration was started at 10 cm and titrated up to 11 cm for eradication of apneas, hypopneas and snoring. ??Due to poor sleep and intolerance to the CPAP pressure it was decreased to 8 cm water and then changed to BiPAP starting at a pressure of 10/6 cm water for patient comfort and titrated to a pressure of 16/12 cm water . All CPAP and BiPAP pressures were adequate in controlling the sleep disorder breathing. ??Although BiPAP was better tolerated .At a pressure of 15/11 cm water patient slept for 65.5 minutes and in supine with 55 minutes with no REM sleep seen with AHI of 4.6 seems adequate in controlling the events. Nocturnal hypoxemia resolved with CPAP. Additional oxygen was not required, O2 saturation less than 88% for 0.0 minutes on final pressure. Snoring and REm was not observed with PAP. ?? Oxygen Data: Oxygen desaturation did occur to as low as 80%. Oxygen desaturations were associated with respiratory events. Oxygen saturation remained less than 89% for 0.0 minutes of TST. Movement events: Periodic Limb Movements are present with an index of 115.6per hour and arousal index of 17./hr. This is a relatively non-specific finding. . Periodic Limb Movements are common during CPAP titration and usually resolve with continued CPAP treatment. Treatment is required only if the patient has concurrent symptoms of restless legs. Cardiac monitoring: No significant arrhythmias were detected during this sleep study. Average heart rate while asleep was 74 bpm. Unusual behavior during sleep: ? None IMPRESSION: Patient with severe sleep apnea on previous diagnostic study with concern for residual AHI on the CPAP down set at 10-18 cm water. Current sleep study shows adequate control of sleep apnea with BiPAP at a pressure of 15/11 cm water with no obstructive or residual central events seen. ??Although patient had poor tolerance to CPAP and REM sleep was not observed during that test with decreased sleep efficiency of 4 hours . DIAGNOSIS Obstructive Sleep Apnea severe ??AHI 33 per hour ? (G47.33) ? Periodic Limb Movements ? (G47.61) ? RECOMMENDATIONS: Patient should be treated for sleep apnea with positive airway pressure therapy (Bipap) at a pressure of 15/11 cm of H2O with a mask of own choice, head gear, chin strap and heated humidifier. Mask used in the lab was [employer]med Airfit F20 Medium. Patient should be scheduled for a follow up appointment in 4-6 weeks to check BIPAP compliance and clinical improvement. Due to increased periodic leg movement observed patient should be clinically assessed for symptoms of RLS. Some other treatment options for patients with sleep apnea include weight reduction, dental appliances, positional therapy and correction of upper airways. This should be individualized based on patient's characteristics, symptoms and co morbidities. Patient should be advised against driving or operating heavy equipment if has symptoms of excessive day time sleepiness. Caution should be taken in the use of sedative and alcohols. I have personally reviewed the entire raw data on the overnight PSG including the patient questionnaire, metal room dental technician notes and all associated tabulated data. FOLLOW UP: Follow up with ordering physician to discuss results. Please call [phone] if there is any question regarding this patient's care. Aminah Gaxiola M.D. Inventory Worker [facility] Sleep Services at [facility] Diplomat [place] [employer] (DABSM,) Diplomat Pulmonar, Critical Care and Sleep Medicine (ABIM) Procedure Note Aminah Gaxiola MD - 03/27/2023 11:59 PM CDT [facility] Sleep [facility] CPAP TITRATION POLYSOMNOGRAPHY REPORT Name: Mesfin Castañeda Date of : 1945 Date of Test: 03/26/2023 Date of interpretation: 04/01/2023 Referring Physician: Chilango Irwin NP CLINICAL INDICATION: Patient with a diagnosis of severe sleep apneaestablished with a prior home sleep study with AHI of 33/ hr. On autoCPAP at 10-18 cm water with download showing increased AHI of more than 10and with concern for central apnea and this study is for titration. Patient took 5 mg of Ambien before sleep. PROCEDURE: Overnight metal room dental technician attended polysomnography was carried out utilizingcontinuous digital monitoring at the [facility] with a CPAPtitration Protocol. Montage included measurements of EEG(electroencephalography), EOG (electro-oculography), EMG(electromyography), EKG, nasal and oral airflow, respiratory effort,(abdominal and rib cage movement), oxygen saturation, snoring sounds, bodyposition, video monitoring and leg movements. All data was visually scoredand analyzed by standard criteria. All events are scored according to thecurrent AASM criteria. IA. Hypopneas have a 30% reductions in air flowsignals with a >=3% oxygen desaturation from pre-event baseline or theevent is associated with an arousal. IB Hypopneas have a 30% reductions in air flow signals with a >=4% oxygendesaturation from pre-event baseline. FINDINGS: Sleep architecture: Light out 22:14 pm with light on 04:25 am. Total recording time was 371.5 minutes with total sleep time of 243.5minutes. TST in supine is 132.5 minutes. Sleep latency is 9 minutes with asleep efficiency of 65.5% which is below normal .This may be related tothe unfamiliar environment of the sleep center (First night effect), Total number of arousals were 300 with arousal index of 73.9 per hour.Sleep is fragmented due to combination of respiratory events andspontaneous arousals. Sleep Stages N1 Sleep: 1.4% N2 Sleep: 95.9 % N3 Sleep: 2.7 % REM Sleep: 0% Respiratory monitoring: CPAP titration was started at 10 cm and titrated up to 11 cm foreradication of apneas, hypopneas and snoring. Due to poor sleep andintolerance to the CPAP pressure it was decreased to 8 cm water and thenchanged to BiPAP starting at a pressure of 10/6 cm water for patientcomfort and titrated to a pressure of 16/12 cm water . All CPAP and BiPAP pressures were adequate in controlling the sleepdisorder breathing. Although BiPAP was better tolerated .At a pressure of15/11 cm water patient slept for 65.5 minutes and in supine with 55minutes with no REM sleep seen with AHI of 4.6 seems adequate incontrolling the events. Nocturnal hypoxemia resolved with CPAP. Additional oxygen was notrequired, O2 saturation less than 88% for 0.0 minutes on final pressure. Snoring and REm was not observed with PAP. Oxygen Data: Oxygen desaturation did occur to as low as 80%. Oxygen desaturations wereassociated with respiratory events. Oxygen saturation remained less than 89% for 0.0 minutes of TST. Movement events: Periodic Limb Movements are present with an index of 115.6per hour andarousal index of 17./hr. This is a relatively non-specific finding. .Periodic Limb Movements are common during CPAP titration and usuallyresolve with continued CPAP treatment. Treatment is required only if thepatient has concurrent symptoms of restless legs. Cardiac monitoring: No significant arrhythmias were detected during this sleep study. Averageheart rate while asleep was 74 bpm. Unusual behavior during sleep: None IMPRESSION: Patient with severe sleep apnea on previous diagnostic study with concernfor residual AHI on the CPAP down set at 10-18 cm water. Current sleep study shows adequate control of sleep apnea with BiPAP at apressure of 15/11 cm water with no obstructive or residual central eventsseen. Although patient had poor tolerance to CPAP and REM sleep was notobserved during that test with decreased sleep efficiency of 4 hours . DIAGNOSIS Obstructive Sleep Apnea severe AHI 33 per hour (G47.33) Periodic Limb Movements(G47.61) RECOMMENDATIONS: Patient should be treated for sleep apnea with positive airway pressuretherapy (Bipap) at a pressure of 15/11 cm of H2O with a mask of ownchoice, head gear, chin strap and heated humidifier. Mask used in the [employer] Air[employer] F20 Medium. Patient should be scheduled for a follow up appointment in 4-6 weeks tocheck BIPAP compliance and clinical improvement. Due to increased periodic leg movement observed patient should beclinically assessed for symptoms of RLS. Some other treatment options for patients with sleep apnea include weightreduction, dental appliances, positional therapy and correction of upperairways. This should be individualized based on patient's characteristics,symptoms and co morbidities. Patient should be advised against driving or operating heavy equipment ifhas symptoms of excessive day time sleepiness. Caution should be taken in the use of sedative and alcohols. I have personally reviewed the entire raw data on the overnight PSGincluding the patient questionnaire, metal room dental technician notes and all associatedtabulated data. FOLLOW UP: Follow up with ordering physician to discuss results. Please call [phone] if there is any question regarding this patient'scare. Aminah Gaxiola M.D. Inventory Worker [facility] Sleep Services at [facility] Diplomat [place] [employer] (DABSM,) Diplomat Pulmonar, Critical Care and Sleep Medicine (ABIM) Lou Irwin [facility] VICTOR MANUELDamian GARCÍAAZEB [facility] MEDQUIST * DERMATOPATHOLOGY (01/03/2023 12:00 AM BOLT MACHINE OPERATOR) Case Report Dermatopathology Report ? Case: [id number] ? Authorizing Provider: ??Radha Salinas PA-C ? Collected: ? 01/03/2023 12:00 AM ? Ordering Location: ? [facility] ?Received: ?01/06/2023 07:50 AM ? Pathologist: ? Gail Lee MD ? Specimen: ?Skin, right ventral lateral proximal forearm triangulation: 8cm to lateral epicondyle 3 4:03 PM BOLT MACHINE OPERATOR DERMATOPATHOLOGY LABORATORY Final Diagnosis Specimen A. 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 Neoplasm of Uncertain Behavior vs. Actinic Keratosis vs. Squamous Cell Carcinoma 3 4:03 PM [facility] DERMATOPATHOLOGY LABORATORY Gross Description Specimen A: Received is one formalin filled container labeled with the patient's name and designated right ventral lateral proximal forearm triangulation: 8cm to lateral epicondyle. The specimen consists of a shave biopsy measuring 9x9x3 mm. Jar 0. 3 4:03 PM [facility] DERMATOPATHOLOGY LABORATORY Microscopic Description Specimen A. SKIN, right ventral lateral proximal forearm triangulation: 8cm to lateral epicondyle: The epidermis shows parakeratosis, full thickness disorderly maturation of keratinocytes, mitoses at different levels, and dyskeratotic cells. 3 4:03 PM [facility] DERMATOPATHOLOGY LABORATORY Disclaimer An external and internal positive and negative controls are appropriate for the histochemical, immunohistochemical and immunofluorescence stain(s) in this case (if any), except where stated explicitly. The performance characteristics of the stain(s) cited in this report were developed and its performance characteristic determined by the Dermatopathology Laboratory at [facility], directed by Dr. Valentin Cheatham. These tests need not be, and therefore are not, approved by the [place] Food and Drug Administration. The tests are used for clinical purposes. Billing Codes Specimen Charges Stain Charges 84701 1 3 4:03 PM [facility] DERMATOPATHOLOGY LABORATORY Embedded Images 3 4:03 PM [facility] DERMATOPATHOLOGY LABORATORY Pathology/Cytolog y TISSUE SPECIMEN FROM SKIN / Unknown 01/03/2023 01/06/2023 7:50 AM [facility] Radha Salinas PA-C LAB - PATHOLOGY/CYTO LOGY ORDERABLES DERMATOPATHOLOGY LABORATORY [facility] - Department of Dermatology [address], [address] [phone] * COMPLETE PFT W/WO BRONCHODILATOR (08/23/2022 12:00 PM CDT) 08/23/2022 12:0 0 PM CDT Narrative Procedure Note Alfonzo Sims MD - 08/23/2022 12:59 PM CDT [facility] PULMONARY FUNCTION TEST REPORT PATIENT: MESFIN CASTAÑEDA MR#: [id number] ADMIT DATE: 08/23/2022 CSN: [id number] DATE OF PROCEDURE: 08/23/2022 :1945 PHYSICIAN: Alfonzo Sims MD REFERRING PHYSICIAN: LEO WANG FINDINGS: 1. Baseline spirometry reveals a severe decrease in expiratory flows. 2. Following administration of bronchodilator, there is a significant increase in expiratory flows. 3. FEV1/FVC ratio is decreased, consistent with obstruction. 4. Lung volumes demonstrate air trapping. 5. Gas transfer capacity is diminished, but corrects for lung volume. 6. Flow volume loop demonstrates obstruction to the expiratory portion ofthe loop. IMPRESSION: Severe obstructive lung disease with a significantbronchodilator response. There is no restrictive lung disease. Gas transfer capacityis diminished, but corrects for lung volume. Alfonzo Camarillo MD YONATHAN/MODL #:[id number] Leo Wang MD RESPIRATORY THERA PY ORDERABLES [facility] MEDQUIST * CPAP/BIPAP TITRATION (07/16/2021 12:00 PM CDT) 07/16/2021 12:0 0 PM CDT Narrative Procedure Note Fernie Noble MD - 07/17/2021 11:59 PM CDT [facility] POLYSOMNOGRAPHY PATIENT: MESFIN CASTAÑEDA MR#: [id number] ADMIT DATE: 07/17/2021 CSN: [id number] DISCH DATE: ROOM: PHYSICIAN: Fernie Noble MD :1945 REFERRING PHYSICIAN: Yasmeen Frances MD INDICATION FOR STUDY AND SLEEP HISTORY: This is a CPAP titration study.The patient underwent a diagnostic home sleep study on 03/28/2021 thatrevealed severe obstructive sleep apnea with an apnea-hypopnea index of 33. The patient currently weighs 245 pounds and has a BMI of 32.4. DATA SUMMARY: Recording time was 390 minutes with a sleep time of 351 minutes, sleep efficiency was 89%, sleep latency was 11 minutes, REMsleep latency was short at 57 minutes. Sleep stage distribution was asfollows: 18% stage N1, 57% stage N2, and 23% stage REM. CPAP was initiated at 4 cm and the pressure was increased to 15 cm, butthe patient essentially had no sleep at this ending pressure. At the pressureof 14 cm, the patient slept for 33 minutes. Sleep efficiency was about 90%.The patient had 20 minutes of supine sleep and 7 minutes of lateral REMsleep. Using CMS criteria, the patient was found to have 3 obstructive apneas,4 central apneas, and no hypopneas. This led to an AHI of 12 with acentral apnea index of 7. Many of the central events were post arousal. Theawake and arousal index of 47. There was no significant snoring, hypoxemia, ormask leak at this pressure. The patient did well at a pressure of 10, mainly because the patient had no supine sleep. The residual AHI was 6.5, drivenby 2 hypopneas. At a pressure of 11, the patient had an AHI of 7.6. Atthis pressure, the patient slept for 79 minutes. There was 50 minutes ofsupine sleep and 16 minutes of lateral REM sleep. All the events at thispressure took place in the supine position, leading to an AHI of 7.6. It shouldbe noted that no supine REM sleep was recorded during the entire study. It appears that the patient will need a higher CPAP pressure in the supine position and that therapeutic pressure could not be determined on thestudy. EKG showed atrial fibrillation with a mean heart rate of 70. The patienthad no significant periodic leg movement during the study. IMPRESSION: The patient underwent a suboptimal CPAP titration due to continued events persisting at the ending pressure, mainly occurring inthe supine position. A pressure of 14 cm is clearly not therapeutic in thesupine sleep. A pressure of 11 cm is therapeutic in the lateral position,including lateral REM sleep. No supine REM sleep was recorded on the study. CPAP tolerance was not optimal. RECOMMENDATIONS: 1. There are 2 options for managing this patient. One is to have the patient return to the sleep lab, preferably with a hypnotic agent,so that a more complete titration can be achieved, so we can determinethe best pressure in the supine position and also in supine REM sleep. 2. A second option will be to initiate PAP therapy with an auto-CPAPdevice with a lower pressure of 15 cm. 3. Standard CPAP therapy can also be initiated, if desired, based onthis study, but I would recommend starting a pressure of 16 cm. 4. Utilizing CPAP at a lower CPAP pressures of 11 to 12 and avoiding the supine position will be another treatment option, although this is difficult to comply with on a long-term basis. 5. Weight loss recommended. Fernie Noble MD MSD/MODL #:[id number] Yasmeen Frances MD [facility] ORDERAB LES [facility] MEDQUIST * COMPLETE PFT W/WO BRONCHODILATOR (04/23/2019 12:13 PM CDT) Narrative [facility] RESULT SCAN - 04/23/2019 12:13 PM CDT Yasmeen Frances MD ? 04/23/2019 12:13 PM Report: ??Forced vital capacity is moderately reduced which is 2.90 L and 60 percent predicted. ??FEV1 is severely reduced which is 1.32 L and 37 percent predicted. ??There is significant bronchodilator response with improvement of 20 percent in FEV1 after bronchodilator. ??Ratio FEV1 FVC is reduced as well which is 45 percent. ??Flow in the mid expiratory and is severely limited which is 15 percent predicted. ??There is significant bronchodilator response of improvement by 13 percent in the mid expiratory flow. ??Vital capacity is moderately reduced which is 2.98 L and 62 percent predicted. ??Total lung capacity is within acceptable range of 7.09 L and 98 percent predicted. ??There is evidence of air entrapment with residual volume being 148 percent predicted. ??DLCO is moderately reduced which is 69 percent predicted. ??When it was adjusted for alveolar volume it became 91 percent predicted. ??Upon inspection of the flow volume curve there is severe scooping of the expiratory limb suggestive of severe obstructive lung disease. Interpretation: ??This PFT is suggestive of severe obstructive lung pattern. ??There is significant bronchodilator response and evidence of air entrapment. 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 ??Asthma cannot be conclusively ruled out. ??Please correlate clinically. Yasmeen Frances MD RESPIRATORY THERAPY ORDERABLES [facility] RESULT SCAN Care Teams It Security Architect Relationship Specialty Start Date End Date Odin Alex MD [address] [place] [address] [address] [place] [address] PCP - General Internal Medicine 04/12/19 [place] [address] [facility] [address] [place] [address] Pulmonary Disease 05/09/22
--- OUTSIDE RECORDS SUMMARY | 2024-12-24 04:49 | XMS_ITS | Clinical Summary ---
Author Organization [facility] [employer] Address [address] [place] [address] Care Team Providers Care Tmr Teacher Name Role Phone Odin Alex MD Primary Care Provider Leo Wang MD Unavailable Source Comments [facility] [employer],non-owned Affiliates and Associated Physician Practices is amultiple site organization consisting of ambulatory clinics and hospital sitesin [place], [place] and [place]. This disclosure is being madepursuant to the Care Everywhere program and may not contain all information available regarding this patient. Last updated 18.[facility] [employer] Allergies No known active allergies Medications * [...] fluticasone propionate (Flonase) 50 MCG/ACT nasal spray [place] 2 (two) sprays into each nostril once [...] Eliquis 5 mg twice daily.He has a [id number] score of 2, therefore it is recommended that he remain anticoagulated for thromboprophylaxis. USP current use of antiarrhythmic drug Overview (11/02/2021): Last Assessment & Plan: The patient's ECG today does not indicate any changes that would prohibit the use of Sotalol. As long as they remain on this medication, an ECG will be performed every 6 months for monitoring. 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 (28% of pred from 08/2022 with significant reversible component).; CASTRO treated with BiPAP; Nodule of lower lobe of left lung - 4 mm, indeterminate and unchanged on last OSH chest CT.; History of tobacco abuse; History of COVID-19; 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; Hypertension, unspecified type; PAF (paroxysmal atrial fibrillation) (HCC); Chronic anticoagulation; Obesity (BMI 30-39.9) 12/13/2024 2:30 PM CHAIN SALES CONSULTANT - 12/13/2024 11:59 PM CHAIN SALES CONSULTANT Hospital Encounter [facility] Imaging Services - Radiology [address] [place] [address] Leo Wang MD Discharge Disposition: Home or Self Care 12/13/2024 Travel 10/20/2024 Refill [facility] Pulmonology [id number] [place] [id number] Leo Wang MD Refill Request from Last 3 Months Immunizations Name Administration Dates Next Due INFLUENZA VACCINE, TRIV. (AF LURIA, FLUZONE TRIVALENT; 6MO+) (IIV3) 10/21/2014,10/21/2014,10/08/2013,2012 Covid Pfizer primary monoval ent 12+ yr 0.3mL Purple [...] Comments Blood Pressure 126/80 12/13/2024 3:36 PM CHAIN SALES CONSULTANT Pulse 82 12/13/2024 3:36 PM CHAIN SALES CONSULTANT Temperature 36.3 ??C (97.4 ??F) 12/13/2024 3:36 PM CS T Respiratory Rate 20 12/13/2024 3:36 PM CHAIN SALES CONSULTANT Oxygen Saturation 96% 12/13/2024 3:36 PM CHAIN SALES CONSULTANT room air Inhaled Oxygen Concentration - - Weight 119.3 kg (263 lb) 12/13/2024 3:36 PM CHAIN SALES CONSULTANT Height 182.9 cm (6') 12/13/2024 3:36 PM CHAIN SALES CONSULTANT Body Mass Index 35.67 12/13/2024 3:36 PM CHAIN SALES CONSULTANT Plan of Treatment Upcoming Encounters Date Type Department Care Team (Late st Contact Info) Description 04/05/2025 1:00 PM CDT Office Visit [facility] - Pulmonology [address] [facility] [address] [place] [address] [place] [phone] [facility] [address] [place] [address] Health Maintenance Due Date Last Done Comments HEPATITIS C SCREENING 05/22/1963 DTAP/TDAP/TD VACCINES (1 - Tdap) 1965 ZOSTER VACCINE (1 of 2) 1996 Respiratory Syncytial Virus (RSV) Vaccine Pt: or over 60 yrs (1 - 1-dose 75+ series) 2021 COVID-19 VACCINE ( season) 2024 03/18/2022, 08/30/2021, 02/25/2021, Additional history exists DEPRESSION SCREENING 12/01/2024 08/24/2024 MEDICARE AWV ? CALENDAR YEAR 2024 PNEUMOCOCCAL VACCINE 50+ Completed 023, 01/03/2015, 01/03/2015, Additional history exists INFLUENZA VACCINE Completed 09/09/2024, , 08/26/2023, Additional history exists HEPATITIS B VACCINE Aged Out No longe r eligible based on patient's age to complete this topic HIB VACCINE Aged Out No longer eligi ble based on patient's age to complete this topic HPV VACCINE Aged Out No longer eligi ble based on patient's age to complete this topic MENINGOCOCCAL (Group B) VACCINE Aged Out No longer eligible based on patient's age to complete this topic MENINGOCOCCAL VACCINE Aged Out No jomar dutch eligible based on patient's age to complete this topic Procedures Procedure Name Priority Date/Time Associated Diagnosis Comments XR CHEST 2VW Routine 12/13/2024 2:58 PM CHAIN SALES CONSULTANT Dyspnea, unspecified type Acute on chronic diastolic [...] LAB ORDER 11/30/2024 CARDIAC CATH REPORT 11/18/2024 NM CARDIAC RESULTS ORDER 10/14/2024 from Last 3 Months Results * XR Chest 2Vw (12/13/2024 2:58 PM CHAIN SALES CONSULTANT) Anatomical Region Laterality Modality Chest Computed Radiogr aphy 12/13/2024 3:01 PM CHAIN SALES CONSULTANT Impressions 12/13/2024 3:01 PM CHAIN SALES CONSULTANT IMPRESSION: No acute disease. > Interpreting Provider: Jean-Pierre Sepulveda MD on 12/13/2024 3:01 PM Narrative 12/13/2024 3:01 PM CHAIN SALES CONSULTANT Chest Two Views History: R06.00: Dyspnea, unspecified [...] Sepulveda MD on 12/13/2024 3:01 PM Leo Delgado ORDERABLES * VASCULAR LAB ORDER (11/30/2024) [...] ORDERABLES from Last 3 Months Care Teams Tmr Teacher Relationship Specialty Start Date End Date Odin Alex MD [address] [place] [address] [address] [place] [phone] PCP - General Internal Medicine 04/12/19 [place] [address] [facility] [address] [place] [id number] Pulmonary Disease 05/09/22
--- OUTSIDE RECORDS SUMMARY | 2024-12-24 04:49 | XMS_ITS | Data Portability ---
Author Organization [place] [facility], Main Office Address [address] [place] [address] Assessment No assessment recorded. Plan of Treatment Reminders Order Date Submit Date Provider Last Modified By Organization Details Last Modified Time Details Appointments None recorded. Lab lipid panel, serum 2023 024 MICHELLE Not available 4 14:14:31 CMP, serum or plasma 2023 024 MICHELLE Not available 4 14:14:45 TSH, serum or plasma 2023 024 MICHELLE Not available 4 14:38:40 T4, free, serum 2023 024 MICHELLE Not available 4 14:17:00 CBC w/ auto diff 2023 024 MICHELLE Not available 4 13:37:17 PSA, serum or plasma 2023 024 [email or web address] Not available 4 11:53:45 vitamin B12, serum 2023 024 [email or web address] Not available 4 11:53:45 magnesium, serum or plasma 2023 024 [email or web address] Not available 4 11:53:45 lipid panel, serum 2023 024 [email or web address] Not available 4 16:54:06 CMP, serum or plasma 2023 024 [email or web address] Not available 4 11:53:45 TSH, serum or plasma 2023 024 [email or web address] Not available 4 16:53:40 T4, free, serum 2023 024 Not available 4 16:53:51 CBC w/ auto diff 2023 024 [email or web address] Not available 4 16:53:25 lipid panel, serum 2023 024 [email or web address] Not available 4 16:56:55 CMP, serum or plasma 2023 024 [email or web address] Not available 16:56:55 HbA1c (hemoglobin A1c), blood 2023 024 [email or web address] Not available 16:56:55 TSH, serum or plasma 2023 024 [email or web address] Not available 4 16:56:55 T4, free, serum 2023 024 [email or web address] Not available 16:56:55 CBC w/ auto diff 2023 024 [email or web address] Not available 16:56:54 Referral None recorded. Procedures None recorded. Surgeries None recorded. Imaging None recorded. Medication Orders cephalexin 500 mg capsule 2022 023 [email or web address] [facility] [address], [place], [address], 4 14:54:31 methylpredn isolone 4 mg tablets in a dose pack 2023 024 MICHELLE [facility] [address], [address], [place], [address], 4 10:47:59 Patient TargetsNo targets recorded. Patient Instructions Encounter Date Encounter Id Patient Instructions Last Modified By Organization Details Last Modified Time 10/16/2023 [id number] Cellulitis of th e foot will start some Keflex 500 mg q.i.d. The see if there is any improvement. Instructed us know if there is any associated fever chills or other systemic or constitutional symptoms. Does need to be set up with Podiatry as well. Portions of the record may have been created with voice recognition software. Occasional wrong-word or ? bdavn-n-[id number]? substitutions may have occurred due to the inherent limitations of voice recognition software. Read the chart carefully and recognize, using context, where substitutions have occurred. Podiatry consult for cellulitis right foot Keep Appt: Fri 01:[address] [facility] Not available 10/16/2023 14:49:20 12/30/2023 [id number] Hypertension -atrial fibrillation-hyperl ipidemia -spinal stenosis lumbar area. 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 Also has the neuropathy as well as lumbar radiculopathy as a result of spinal stenosis. Has had some increasing discomfort in the feet likely secondary some regain of some of his numbness and Paresthesias. Will continue on current Rx check blood work consisting of CBC, CMP, lipid, thyroid. Follow-up in four months Portions of the record may have been created with voice recognition software. Occasional wrong-word or ? ngwwe-o-tmie? substitutions may have occurred due to the inherent limitations of voice recognition software. Read the chart carefully and recognize, using context, where substitutions have occurred. Keep Appt: Fri 01:50 PM [facility] [email or web address] Not available 12/30/2023 15:25:31 01/19/2024 [id number] Cluster headache s or Daniels's headaches. Will continue on current medication if a trial of some tramadol or hydrocodone 7.5 mg on Q 6 hour p.r.n. Basis. Also give a trial of a Medrol Dosepak and see if any improvement. If not may need to consider further evaluation. Somewhat reluctant to give a trial of any trips events or similar agents. Will give some samples of some Nurtec and see if there is any improvement with this. Portions of the record may have been created with voice recognition software. Occasional wrong-word or ? qdtdw-k-zgfs? substitutions may have occurred due to the inherent limitations of voice recognition software. Read the chart carefully and recognize, using context, where substitutions have occurred. Keep Appt: Fri:50 PM Olesya [email or web address] Not available 01/19/2024 10:47:03 04/27/2024 [id number] Follow-up hypertension, paroxysmal atrial fibrillation, hyperlipidemia, chronic obstructive lung disease, GERD, anxiety as well as obesity class two all clinically stable. Will continue on current Rx check blood work consisting of CBC, CMP, lipid, thyroid, B12, Magnesium level and PSA. Continue on current Rx follow-up in four months Next Appointment: 4 Months Approximate Date: 08/25/2024 Portions of the record may have been created with voice recognition software. Occasional wrong-word or ? jegeb-w-ghzo? substitutions may have occurred due to the inherent limitations of voice recognition software. Read the chart carefully and recognize, using context, where substitutions have occurred. Not available 04/27/2024 15:31:43 09/09/2024 [id number] dementia rating scale-2* [email or web address] Not available 09/09/2024 12:50:44 alcohol misuse* [email or web address] Not available 09/09/2024 12:50:44 depression screening* [email or web address] Not available 09/09/2024 12:50:44 Timed Up and Go test (TUG)* [email or web address] Not available 09/09/2024 12:50:44 multi-dimensiona l health assessment questionnaire* [email or web address] Not available 09/09/2024 12:50:44 Personalized a lt Plan and Screening Recommendations Advance Directives - Do you have one? Advance Directives - Do we have your advance directive on file in your health record? Primary Prevention/Interven tion (prevents or decreases the chance of common diseases from occurring) Smoking Risk: Non Smoker Alcohol Misuse Screening: Negative Weight: Appropriate Overwei ght continue your current weight loss efforts try to lose 5% of your body weight try to lose 10% of your body weight Physical activity: Nutrition: Good Average Fall Risk (screened today): Low Intermediate Refer to attached handout Preventing Falls: After your Visit Recommend regular use of cane or walker Vaccines Pneumococcal: Ordered Recommended today Recommended today, but you have declined No further needed Influenza: Ordered Recommended today Chronic Disease Risks Stroke: Low Risk Intermediate Risk I have no recommendations Act rory diagnosis, Continue current treatment plan Heart Attack: Low risk Intermediate Risk I have no recommendations Act rory diagnosis, Continue current treatment plan Clogging of the Arteries: Low risk Intermediate Risk I have no recommendations Act rory diagnosis, Continue current treatment plan Diabetes: Low Risk Intermediate Risk I have no recommendations Ref er to attached handout ? P re-diabetes: After Your Visit? Drastica lly limit sugar and products made with any type of flour (bread, pasta, cereal, cookies, crackers, etc.) Secondary Prevention/Interven tion (detects treatable diseases before they may cause symptoms, disability, or ) Prostate Cancer Screening: Colon Cancer Screening: Colonoscopy Date Screening Last Performed: _2014___ Eye Disease Screening: Dementia Risk: Low I have no recommendations Depression Screening: Negative [email or web address] Not available 09/09/2024 12:28:01 Medicare wellnes s evaluation risk assessment stable. Follow-up for hypertension, paroxysmal atrial fibrillation, chronic obstructive lung disease, hyperlipidemia obesity class two all clinically stable. Check blood work consisting of CBC, CMP, lipid, thyroid and hemoglobin A1c. Continue on current Rx follow-up in four months Follow Up: 4 Months Approximate Date: 01/07/2025 Portions of the record may have been created with voice recognition software. Occasional wrong-word or ? dcqfi-v-[id number]? substitutions may have occurred due to the inherent limitations of voice recognition software. Read the chart carefully and recognize, using context, where substitutions have occurred. [email or web address] Not available 09/09/2024 12:51:23 Reason for Referral None Reported. Results Created Date Observation Date Name Description Value Unit Range Abnormal Flag Note LastModifiedBy Organization Detail LastModifiedTime 01/20/20 24 01/20/2024 CBC/C OMPLE TE BLD COUNT W/DIF F white blood cells 12.5 x10'3 /uL 4.2-10 .8 high Not Available [facility] (Lab) [address] [place], [address], 01/20/2024 13:37:17 01/20/20 24 01/20/2024 CBC/C OMPLE TE BLD COUNT W/DIF F red blood cells 5.14 x10'6 /uL 4.10-5 .80 Not Available [facility] (Lab) [address] [place], [address], 01/20/2024 13:37:17 01/20/20 24 01/20/2024 CBC/C OMPLE TE BLD COUNT W/DIF F hemoglobin 15.7 g/dL 13.2-1 7.0 Not Available [facility] (Lab) [address] [place], [address], 01/20/2024 13:37:17 01/20/20 24 01/20/2024 CBC/C OMPLE TE BLD COUNT W/DIF F hematocrit 49.3 % 39.3-5 0.0 Not Available [facility] (Lab) [address] [place], [address], 01/20/2024 13:37:17 01/20/20 24 01/20/2024 CBC/C OMPLE TE BLD COUNT W/DIF F mean red cell volume 95.9 fL 80.0-9 7.0 Not Available [facility] (Lab) [address] [place], [address], 01/20/2024 13:37:17 01/20/20 24 01/20/2024 CBC/C OMPLE TE BLD COUNT W/DIF F mean red cell hemoglobin 30.5 pg 27.0-3 3.0 Not Available [facility] (Lab) [address] [place], [address], 01/20/2024 13:37:17 01/20/20 24 01/20/2024 CBC/C OMPLE TE BLD COUNT W/DIF F mean RBC HGB concentratio n 31.8 g/dL 31.0-3 6.0 Not Available [facility] (Lab) [address] [place], [address], 01/20/2024 13:37:17 01/20/20 24 01/20/2024 CBC/C OMPLE TE BLD COUNT W/DIF F red cell distribution width 13.8 % 11.8-1 5.5 Not Available [facility] (Lab) [address] [place], [address], 01/20/2024 13:37:17 01/20/20 24 01/20/2024 CBC/C OMPLE TE BLD COUNT W/DIF F platelets 509 x10'3 /uL 150-40 0 high Not Available [facility] (Lab) [address] [place], [address], 01/20/2024 13:37:17 01/20/20 24 01/20/2024 CBC/C OMPLE TE BLD COUNT W/DIF F mean platelet volume 9.3 fL 9.0-12 .4 Not Available [facility] (Lab) [address] [place], [address], 01/20/2024 13:37:17 01/20/20 24 01/20/2024 CBC/C OMPLE TE BLD COUNT W/DIF F neutrophils 69.8 % 39.0-7 2.0 Not Available [facility] (Lab) [address] [place], [address], 01/20/2024 13:37:17 01/20/20 24 01/20/2024 CBC/C OMPLE TE BLD COUNT W/DIF F lymphocytes 13.0 % 16.0-4 7.0 low Not Available [facility] (Lab) [address] [place], [address], 01/20/2024 13:37:17 01/20/20 24 01/20/2024 CBC/C OMPLE TE BLD COUNT W/DIF F monocytes 9.8 % 5.0-12 .0 Not Available [facility] (Lab) [address] [place], [address], 01/20/2024 13:37:17 01/20/20 24 01/20/2024 CBC/C OMPLE TE BLD COUNT W/DIF F eosinophils 5.6 % 1.0-7. 0 Not Available [facility] (Lab) [address] [place], [address], 01/20/2024 13:37:17 01/20/20 24 01/20/2024 CBC/C OMPLE TE BLD COUNT W/DIF F basophils 1.0 % 0.0-2. 0 Not Available [facility] (Lab) [address] [place], [address], 01/20/2024 13:37:17 01/20/20 24 01/20/2024 CBC/C OMPLE TE BLD COUNT W/DIF F immature granulocytes 0.8 % 0.00-0 .50 high Not Available [facility] (Lab) [address] [place], [address], 01/20/2024 13:37:17 01/20/20 24 01/20/2024 CBC/C OMPLE TE BLD COUNT W/DIF F neutrophils, absolute count 8.71 x10'3 /uL 1.5-8. 0 high Not Available [facility] (Lab) [address] [place], [address], 01/20/2024 13:37:17 01/20/20 24 01/20/2024 CBC/C OMPLE TE BLD COUNT W/DIF F lymphocytes, absolute count 1.62 x10'3 /uL 1.07-3 .43 Not Available [facility] (Lab) [address] [place], [address], 01/20/2024 13:37:17 01/20/20 24 01/20/2024 CBC/C OMPLE TE BLD COUNT W/DIF F monocytes, absolute count 1.23 x10'3 /uL 0.29-0 .99 high Not Available [facility] (Lab) [address] [place], [address], 01/20/2024 13:37:17 01/20/20 24 01/20/2024 CBC/C OMPLE TE BLD COUNT W/DIF F eosinophils, absolute count 0.70 x10'3 /uL 0.02-0 .53 high Not Available [facility] (Lab) [address] [place], [address], 01/20/2024 13:37:17 01/20/20 24 01/20/2024 CBC/C OMPLE TE BLD COUNT W/DIF F basophils, absolute count 0.13 x10'3 /uL 0.01-0 .08 high Not Available [facility] (Lab) [address] [place], [address], 01/20/2024 13:37:17 01/20/20 24 01/20/2024 CBC/C OMPLE TE BLD COUNT W/DIF F immature granulocytes ,absolute 0.10 x10'3 /uL 0.00-0 .05 high Not Available [facility] (Lab) [address] [place], [address], 01/20/2024 13:37:17 01/20/20 24 01/20/2024 CBC/C OMPLE TE BLD COUNT W/DIF F nucleated red blood cells 0.0 % -0 Not Available [facility] (Lab) [address] [place], [address], 01/20/2024 13:37:17 01/20/20 24 01/20/2024 CBC/C OMPLE TE BLD COUNT W/DIF F NRBC# 0.00 x10'3 /uL Not Available [facility] (Lab) [address] [place], [address], 01/20/2024 13:37:17 01/20/20 24 01/20/2024 LIPID PANEL cholesterol 117 mg/dL 140-19 9 low NIH JESS NSUS RECOM MENDA TION FOR ALTAGRACIA STERO L: ADULT CHILD LOW RISK: <200 <170 BORDE RLINE : <200- 239 ----- HIGH RISK: >240 >200 Not Available [facility] (Lab) [address] [place], [address], 01/20/2024 14:14:31 01/20/20 24 01/20/2024 LIPID PANEL triglyceride s 142 mg/dL 0-150 NIH JESS NSUS REPOR T RECOM MENDA TION FOR TRIGL YCERI SONIA: ADULT CHILD LOW RISK: <150 ----- BODER LINE: 150-1 99 ----- HIGH RISK: >200 ----- Not Available [facility] (Lab) [address] [place], [address], 01/20/2024 14:14:31 01/20/20 24 01/20/2024 LIPID PANEL HDL cholesterol 28 mg/dL 40- low Not Available [facility] (Lab) [address] [place], [address], 01/20/2024 14:14:31 01/20/20 24 01/20/2024 LIPID PANEL LDL cholesterol, calculated 61 mg/dL 0-130 NIH JESS NSUS REPOR T RECOM MENDA TIONS FOR LDL: ADULT CHILD LOW RISK <130 <110 (OPTI MAL LDL) <100 ----- BORDE RLINE : 130-1 59 ----- HIGH RISK: >160 >130 A TRIGL YCERI DE RESUL T >400 INVAL IDATE S THE CALCU LATIO N FOR LDL FRACT IONAT ION - THE LDL RESUL T WILL NOT BE REPOR BERTRAM. Not Available [facility] (Lab) [address] [place], [address], 01/20/2024 14:14:31 01/20/20 24 01/20/2024 COMPR EHENS RORY METAB OLIC PANEL sodium 138 mmol/ L 137-14 5 Not Available [facility] (Lab) [address] [place], [address], 01/20/2024 14:14:45 01/20/20 24 01/20/2024 COMPR EHENS RORY METAB OLIC PANEL potassium 4.7 mmol/ L 3.5-5. 1 Not Available [facility] (Lab) [address] [place], [address], 01/20/2024 14:14:45 01/20/20 24 01/20/2024 COMPR EHENS RORY METAB OLIC PANEL chloride 97 mmol/ L 98-107 low Not Available [facility] (Lab) [address] [place], [address], 01/20/2024 14:14:45 01/20/20 24 01/20/2024 COMPR EHENS RORY METAB OLIC PANEL carbon dioxide 34 mmol/ L 22-30 high Not Available [facility] (Lab) [address] [place], [address], 01/20/2024 14:14:45 01/20/20 24 01/20/2024 COMPR EHENS RORY METAB OLIC PANEL anion gap 11.7 mmol/ L 14-22 low Not Available [facility] (Lab) [address] [place], [address], 01/20/2024 14:14:45 01/20/20 24 01/20/2024 COMPR EHENS RORY METAB OLIC PANEL glucose 126 mg/dL 70-99 high Not Available [facility] (Lab) [address] [place], [address], 01/20/2024 14:14:45 01/20/20 24 01/20/2024 COMPR EHENS RORY METAB OLIC PANEL BUN 29 mg/dL 8-19 high Not Available [facility] (Lab) [address] [place], [address], 01/20/2024 14:14:45 01/20/20 24 01/20/2024 COMPR EHENS RORY METAB OLIC PANEL creatinine 1.00 mg/dL 0.66-1 .25 Not Available [facility] (Lab) [address] [place], [address], 01/20/2024 14:14:45 01/20/20 24 01/20/2024 COMPR EHENS RORY METAB OLIC PANEL GFR >60 Refer ence Range : [place] ge GFR Healt hy Adult : >60 mL/mi n/1.7 3 m2 Chron ic Kidne y Disea se: 15-60 mL/mi n/1.7 3 m2 Kidne y Failu re: <15/m L/min /1.73 m2 www.n iddk. nih.g ov The MDRD study equat ion has not been valid ated in child pollo <18 years of age; pregn ant women ; the elder ly >85 years of age; or in some racia l or ethni c subgr oups, such as Hispa nics. Outsi de the valid ated barbra eters , estim ated GFR is less accur ate, requi ring clini bernard judgm ent on a case- by-ca se basis . Clini bernard inter preta tion for other races and ages must be made by the clini leroy. The MDRD study equat ion has not been valid ated for the evalu ation of serum creat inine relat ed to nutri mery l statu s or medic ation usage . For perso ns <18 years of age, a pedia tric GFR calcu lator is avail able on the [facility] websi te: https :[email or web address] raymond.thanh fermin/arlyn broderick s/kdo qi/gf r_cal culat or Not Available [facility] (Lab) [address] [place], [address], 01/20/2024 14:14:45 01/20/20 24 01/20/2024 COMPR EHENS RORY METAB OLIC PANEL alkaline phosphatase 145 U/L 38-126 high Not Available [facility] (Lab) [address] [place], [address], 01/20/2024 14:14:45 01/20/20 24 01/20/2024 COMPR EHENS RORY METAB OLIC PANEL alanine aminotransfe rase 88 U/L 0-50 high Not Available [facility] (Lab) [address] [place], [address], 01/20/2024 14:14:45 01/20/20 24 01/20/2024 COMPR EHENS RORY METAB OLIC PANEL aspartate aminotransfe rase 71 U/L 15-46 high Not Available [facility] (Lab) [address] [place], [address], 01/20/2024 14:14:45 01/20/20 24 01/20/2024 COMPR EHENS RORY METAB OLIC PANEL bilirubin, total 0.80 mg/dL 0.20-1 .30 Not Available [facility] (Lab) [address] [place], [address], 01/20/2024 14:14:45 01/20/20 24 01/20/2024 COMPR EHENS RORY METAB OLIC PANEL calcium 10.0 mg/dL 8.4-10 .2 Not Available [facility] (Lab) [address] [place], [address], 01/20/2024 14:14:45 01/20/20 24 01/20/2024 COMPR EHENS RORY METAB OLIC PANEL total protein 7.9 g/dL 6.3-8. 2 Not Available [facility] (Lab) [address] [place], [address], 01/20/2024 14:14:45 01/20/20 24 01/20/2024 COMPR EHENS RORY METAB OLIC PANEL albumin 3.8 g/dL 3.0-4. 4 Not Available [facility] (Lab) [address] [place], [address], 01/20/2024 14:14:45 01/20/20 24 01/20/2024 COMPR EHENS RORY METAB OLIC PANEL globulin 4.1 g/dL 2.6-4. 2 Not Available [facility] (Lab) [address] [place], [address], 01/20/2024 14:14:45 01/20/20 24 01/20/2024 COMPR EHENS RORY METAB OLIC PANEL A/G ratio 0.9 ratio 1.0-2. 0 low Not Available [facility] (Lab) [address] [place], [address], 01/20/2024 14:14:45 01/20/20 24 01/20/2024 T4 FREE free T4 1.31 NG/dL 0.78-2 .19 Not Available [facility] (Lab) [address] [place], [address], 01/20/2024 14:17:00 01/20/20 24 01/20/2024 TSH thyroid-stim ulating hormone 1.180 uIU/m L 0.465- 4.680 Not Available [facility] (Lab) [address] [place], [address], 01/20/2024 14:38:40 01/20/20 24 01/20/2024 HEMOG LOBIN A1C HA1C 6.9 % 4.0-6. 0 high Diabe sanjuana Scree tyrell Crite diane: <5.7% Consi stent with absen ce of diabe sanjuana 5.7-6 .4% Consi stent with incre ased risk for diabe sanjuana (pred iabet es) >OR=6 .5% Consi stent with diabe sanjuana REFER ENCE: Diabe sanjauna Care 2016, 39(Berrios ppl.1 ):s13 -s22 Not Available [facility] (Lab) [address] [place], [address], 01/20/2024 20:29:19 10/09/20 23 sacru m/nigel cyx min 2vws [facility] [address] [place] [address] Patien t Name: MESFIN WILEY Access ion #: [id number] Sex: M : 1944 8 Dictat ed By: Jesús Nunez Attend ing Physic kareen: SHAUNNA ALEX CE Orderi ng Physic kareen: SHAUNNA ALEX CE Exam Date: 2022 11:15 AM Exam Name: XR SACRUM /COCCY X 2V Admitt ing Diagno sis(es ): Left sacrum /coccy c radiog raph CLINIC AL INDICA TION: pain TECHNI QUE: 4 radiog raphic views of the sacrum /coccy x were obtain ed. FINDIN GS: There is no eviden ce of acute fractu re or disloc ation. The visual ized joint space is well mainta ined. The alignm ent is anatom ical. Soft tissue s are unrema rkable . IMPRES BISI: No acute fractu re or disloc ation. Electr onical ly Signed by: Jesús Nunez at 2022 15:31: 58 PM Page 1 [facility] (Imaging) [address] [place], [address], 10/11/2023 08:23:53 10/09/20 23 XR, lumbo sacra l spine , 2 or 3 view [facility] [address] [address] [phone] Patien t Name: MESFIN WILEY Access ion #: [id number] Sex: M : 1944 8 Dictat ed By: Jesús Nunez Attend ing Physic kareen: SHAUNNA ALEX CE Orderi ng Physic kareen: SHAUNNA ALEX CE Exam Date: 2022 11:15 AM Exam Name: XR L SPINE 2-3V Admitt ing Diagno sis(es ): INDICA TION: Trauma . TECHNI QUE: Fronta l and latera l views of the lumbar spine were obtain ed. COMPAR TC: None. FINDIN GS: . There are no fractu res or sublux ations . Verteb ral body height s and disc spaces are well mainta ined. Parave rtebra l soft tissue s are unrema rkable . IMPRES BISI: 1. Of the visual ized spine, there is no eviden ce for fractu re or sublux ation. Electr onical ly Signed by: Jesús Nunez at 2022 15:32: 14 PM Page [address] (Imaging) [address] [place], [address], 10/11/2023 08:23:54 11/13/20 23 11/13/2023 MRI, foot, w/o contr ast No observ ation record ed. [email or web address] [address], [place], [address], 11/25/2023 12:50:40 12/23/19 24 12/23/2023 US, doppl er, arter ial No observ ation record ed. [address] [facility] [address], [place], [address], 12/24/2023 07:03:03 12/24/19 24 12/23/2023 US, doppl er, venou s No observ ation record ed. [email or web address] [facility] [address], [place], [address], 01/13/2024 14:04:23 01/16/20 24 01/16/2024 CT, brain , w/o contr ast No observ ation record ed. [address], [place], [address], 01/17/2024 06:52:37 01/16/20 24 01/16/2024 XR, chest , 1 view No observ ation record ed. [address] [address], [place], [address], 01/17/2024 06:53:02 03/08/20 24 03/05/2024 CT, chest , w/o contr ast No observ ation record ed. [address] [address], [place], [address], 03/08/2024 10:07:32 06/01/20 24 [facility] [address] [facility] [place] [address] Patien t Name: MESFIN WILEY Access ion #: [id number] Sex: M : 1944 5 Dictat ed By: Jesús Nunez Attend ing Physic kareen: SHAUNNA ALEX CE Orderi ng Physic kareen: SHAUNNA ALEX CE Exam Date: 2023 10:45 AM Exam Name: US RETROP BERNADETTE/SEH DNEY Admitt ing Diagno sis(es ): INDICA TION: Renal failur e. TECHNI QUE: Multip le real-t umm sonogr aphic images of the kidney s and bladde r were obtain ed. COMPAR TC: None FINDIN GS: RIGHT kidney measur es 11 cm in length . no hydron ephros is. LEFT kidney measur es 10 cm in length . no hydron ephros is. 5cm right reanl cyst. No large intral uminal masses are seen in the bladde r. Prosta te measur es 5x 4 x 4 cm. IMPRES BISI: 1. Prosta tomega ly. Correl ate with PSA.x Electr onical ly Signed by: Jesús Nunez at 2023 13:36: 32 PM Page 1 [email or web address] [facility] (Imaging) [address] [place], [address], 06/01/2024 17:01:32 11/30/20 24 11/30/2024 US, abdom en No observ ation record ed. [email or web address] [facility] [address], [place], [address], 11/30/2024 16:41:01 Result Notes None recorded. Problems Name Problem SNOMED Code Status Onset Date Resolution Date Notes Provider Name and Address Organization Details Recorded Time Acute bronchiti s 29427345 Active 2018 Not Available [facility] 3 09:17:33 Benign essential hypertens ion 2444817 Active Not Available [facility] 3 09:17:33 Rectal hemorrhag e 02750887 Active Not Available [facility] 3 09:17:33 Hyperchol esterolem ia 64405334 Active Not Available [facility] 3 09:17:33 Chronic obstructi ve pulmonary disease 16129371 Active 2020 Not Available [facility] 3 09:17:33 Spinal stenosis of lumbar region 23382865 Active 2020 Not Available [facility] 3 09:17:34 Gastroeso phageal reflux disease 882332494 Active Not Available [facility] 3 09:17:34 Left inguinal hernia 464163102 Active Not Available [facility] 3 09:17:34 Disorder of prostate 47205668 Active 2021 Not Available [facility] 3 09:17:34 Hypoglyce joesph 267169024 Active Not Available [facility] 3 09:17:34 Prostate specific antigen above reference range 348856928 Active Not Available [facility] 3 09:17:34 Osteoarth ritis 847364371 Active Not Available [facility] 3 09:17:34 Obesity 036561838 Active 2021 Not Available [facility] 3 09:17:35 Anxiety 15331007 Active 2019 Not Available [facility] 3 09:17:35 Atrial fibrillat ion 39825688 Active Not Available [facility] 3 09:17:35 Hyperlipi demia 38751841 Completed 202011/27/2021 Not Available [facility] 3 09:17:35 Obstructi ve sleep apnea syndrome 14438456 Active 2020 Not Available [facility] 3 09:17:35 COVID-19 865173453 Active 2021 Not Available [facility] 3 09:17:35 Effects of high altitude 02644562 Active 2021 Not Available [facility] 3 09:17:36 Obese class II 19083424569 4105 Active 2022 Odin Alex MD [address], [address], [place], [address] , [facility] 3 15:23:13 Chronic renal failure 96067689 Active 2022 Aracelis Martinez CMA null, [place] [facility] 3 11:31:19 Leukocyto sis 855096508 Active 2022 Aracelis Martinez CMA null, [place] [facility] 3 11:33:34 Diarrhea 04437853 Active 2022 Odin Alex MD [address], [address], [place], [address] , [facility] 3 16:29:58 Serum creatinin e above reference range 655845338 Active 2022 Odin Alex MD [address], [address], [place], [address] , [facility] 3 10:51:32 Low back pain 469759005 Active 2022 Aracelis Martinez CMA null, [place] [facility] 3 15:20:53 Celluliti s of toe of right foot 85932410385 028372 Active 2022 Odin Alex MD [address], [address], [place], [address] , [facility] 3 14:48:55 Chronic low back pain 192016836 Active 2022 Mitzi stephens, [place] [facility] 3 15:33:51 Hyperglyc emia 27199658 Active 2023 Mitzi stephens, [place] - [facility] 4 15:29:38 Headache 29122273 Active 2023 Odin Alex MD [address], [address], [place], [address] , [facility] 4 14:19:35 Liver enzymes level above reference range 701068538 Active 2023 Aracelis Martinez CMA null, [place] [facility] 4 11:44:45 Depressiv e disorder 23105380 Active 2023 Odin Alex MD [address] [facility], [address], [place], [address] , [facility] 4 12:14:38 Abnormal liver function 17329927 Active 2023 Mitzi Beltrán null, [facility] 4 11:58:35 Hearing loss 34760798 Active 2023 Mitzi Torrseson null, [facility] 4 12:56:05 Problem Notes None recorded. Procedures Surgical History Date Name Laterality Status Provider Name and Address Organization Details Recorded Time 4 Medicare Wellness CPT Code, subsequent completed Caryn Macias RN [facility] 09/09/2024 12:20:33 3 Medicare Wellness CPT Code, subsequent completed Caryn Macias RN [facility] 08/26/2023 14:50:18 3 Advanced Care Planning completed Caryn Macias RN [facility] 08/26/2023 14:52:44 Imaging Results Imaging Date Name Status LastModified by Organization Details LastModified Time 10/09/2023 sacrum/coccyx min [id number] completed [address] (Imaging) [address] [place], [address], 10/11/2023 08:23:53 10/09/2023 XR, lumbosacral spine, 2 or [address] (Imaging) [address] [place], [address], 10/11/2023 08:23:54 11/13/2023 MRI, foot, w/o contrast completed [email or web address] [address] [place] [address], [address], 11/25/2023 12:50:40 12/23/2023 US, doppler, arterial completed [address] [facility] [address], [place], [address], 12/24/2023 07:03:03 12/23/2023 US, doppler, venous completed [facility] [address], [place], [address], 01/13/2024 14:04:23 01/16/2024 CT, brain, w/o contrast completed [address], [address], 01/17/2024 06:52:37 01/16/2024 XR, chest, 1 view completed [address], [address], 01/17/2024 06:53:02 03/05/2024 CT, chest, w/o contrast completed [address], [address], 03/08/2024 10:07:32 06/01/2024 US, retroperitoneum completed [address] (Imaging) [address] [place], [address], 06/01/2024 17:01:32 11/30/2024 US, abdomen completed [address] [facility] [address], [place], [address], 11/30/2024 16:41:01 Procedure Notes None recorded. Medical Equipment None Reported. Allergies No known drug allergies Medications Name Sig Start Date Stop Date Status Note LastModified by Organization Details LastModified Time naltrexon e 1.5mg capsule Take 1 Capsule BY MOUTH EVERY DAY active Not Available Not Available No t Available cyclobenz aprine 10 mg tablet TAKE 1 TABLET BY MOUTH THREE TIMES DAILY 12/20 /2019 completed Not Available Not Available Not Available amoxicill in 500 mg capsule Take 1 capsule 3 times a day by oral route for 10 days. 07/16 completed Not Available Not Available Not Available furosemid e 40 mg tablet Take 1 tablet by mouth once daily 2023 active Not Available Not Available Not Avai lable Norvasc 10 mg tablet Take 1 tablet every day by oral route. 01/19 completed Not Available Not Available Not Available clindamyc in HCl 300 mg capsule Take 1 capsule every 6 hours by oral route. 03/05 completed Not Available Not Available Not Available flecainid e 150 mg tablet Take 1 tablet every 12 hours by oral route. 2012 active Not Available Not Available Not Avai lable pravastat in 40 mg tablet Take 1 tablet by mouth once daily active Not Available Not Available No t Available acetazola mide ER 500 mg capsule,e xtended release TAKE 1 BY MOUTH TWICE DAILY START 48 HOURS BEFORE ASCENT AND CONTINUE 24 HOURS AFTER ASCENT active Not Available Not Available No t Available tizanidin e 4 mg tablet TAKE 1 TABLET BY MOUTH THREE TIMES DAILY active Not Available Not Available No t Available benzonata te 200 mg capsule Take 1 capsule 3 times a day by oral route. 07/16 completed Not Available Not Available Not Available hydrocodo ne 5 mg-acetam inophen 325 mg tablet 03/28 completed Not Available Not Available Not Available sotalol 80 mg tablet TAKE 1/2 TABLET BY ORAL ROUTE 2 TIMES PER DAY 03/05 completed Not Available Not Available Not Available cefepime 2 gram solution for injection 03/28 completed Not Available Not Available Not Available lisinopri l 20 mg tablet Take 1 tablet by mouth once daily 11/07 completed Not Available Not Available Not Available prednison e 20 mg tablet TAKE 2 TABLETS BY MOUTH ONCE active Not Available Not Available No t Available dexametha sone 6 mg tablet TAKE 1 TABLET BY MOUTH ONCE DAILY 01/19 completed Not Available Not Available Not Available metoprolo l succinate ER 100 mg tablet,ex tended release 24 hr TAKE 1 TABLET BY MOUTH ONCE DAILY active Not Available Not Available No t Available prednison e 5 mg tablet TAKE 1 TO 3 TABLETS BY MOUTH ONCE DAILY 01/19 completed Not Available Not Available Not Available promethaz ine 6.25 mg-codein e 10 mg/5 mL syrup Take 5 ML EVERY 6 HOURS by oral route PRN for cough 05/02 completed Not Available Not Available Not Available metronida zole 500 mg tablet TAKE 1 TABLET BY MOUTH EVERY 8 HOURS 01/19 completed Not Available Not Available Not Available amlodipin e 5 mg tablet TAKE 1 TABLET BY MOUTH ONCE DAILY AT NIGHT active Not Available Not Available No t Available aspirin 81 mg tablet,de layed release Take 1 tablet every day by oral route. 2012 active Not Available Not Available Not Avai lable tramadol 50 mg tablet TAKE 1 TABLET BY MOUTH EVERY 8 HOURS active Not Available Not Available No t Available Celebrex 200 mg capsule Take 1 capsule twice a day by oral route. 2014 active Not Available Not Available Not Avai lable terbinafi ne HCl 250 mg tablet TAKE 1 TABLET BY MOUTH ONCE DAILY 08/01 completed Not Available Not Available Not Available alprazola m 0.25 mg tablet TAKE 1 TABLET BY MOUTH THREE TIMES DAILY 2023 active Not Available Not Available Not Avai lable methotrex ate sodium 2.5 mg tablet TAKE 5 TABLETS BY MOUTH ONCE A WEEK IN THE MORNING AND IN THE EVENING active Not Available Not Available No t Available trazodone 100 mg tablet TAKE 1 TABLET BY MOUTH AT BEDTIME active Not Available Not Available No t Available imiquimod 5 % topical cream packet APPLY CREAM TOPICALL Y TO FOREHEAD AT NIGHT AND THEN WASH OFF IN THE MORNING FOR 2 WEEKS ON, 2 WEEKS OFF, THEN 2 WEEKS AGAIN active Not Available Not Available No t Available cephalexi n 500 mg capsule TAKE 1 CAPSULE BY MOUTH EVERY 6 HOURS 12/30 completed Not Available Not Available Not Available pantopraz ole 40 mg tablet,de layed release Take 1 tablet by mouth once daily 2023 active Not Available Not Available Not Avai lable hydrochlo rothiazid e 12.5 mg capsule Take 1 capsule by mouth once daily 11/07 completed Not Available Not Available Not Available gabapenti n 300 mg capsule Take 1 capsule 3 times a day by oral route. active Not Available Not Available No t Available difloraso ne 0.05 % topical cream active Not Available Not Available Not Available folic acid 1 mg tablet TAKE 1 TABLET BY MOUTH ONCE DAILY active Not Available Not Available No t Available monteluka st 10 mg tablet TAKE 1 TABLET BY MOUTH ONCE DAILY active Not Available Not Available No t Available zolpidem 5 mg tablet TAKE 1 TABLET BY MOUTH NIGHTLY DIRECTED , MAY REPEAT 1 TIME IF NEEDED 01/19 completed Not Available Not Available Not Available furosemid e 20 mg tablet TAKE 1 TABLET BY MOUTH ONCE DAILY 05/06 completed Not Available Not Available Not Available Levaquin 500 mg tablet Take 1 tablet every 24 hours by oral route. 03/06 completed Not Available Not Available Not Available gabapenti n 100 mg capsule TAKE 1 CAPSULE BY MOUTH THREE TIMES DAILY FOR 90 DAYS active Not Available Not Available No t Available methylpre dnisolone 4 mg tablets in a dose pack TAKE BY MOUTH DIRECTED ON INSIDE OF PACKAGE active Not Available Not Available No t Available albuterol sulfate HFA 90 mcg/actua tion aerosol inhaler INHALE 2 PUFFS BY MOUTH EVERY 6 HOURS NEEDED active Not Available Not Available No t Available lisinopri l 40 mg tablet Take 1 tablet by mouth once daily 11/07 completed Not Available Not Available Not Available cefdinir 300 mg capsule Take 1 capsule every 12 hours by oral route. 05/02 completed Not Available Not Available Not Available diltiazem ER (XR/XT) 180 mg capsule,e xtended release 24 hr, controlle d Take 2 capsules every day by oral route. 2012 active Not Available Not Available Not Avai lable doxycycli ne hyclate 100 mg tablet Take 1 Tablet by mouth twice daily FOR 3 DAYS active Not Available Not Available No t Available amoxicill in 875 mg-potass ium clavulana te 125 mg tablet TAKE 1 TABLET BY MOUTH EVERY 12 HOURS 12/30 completed Not Available Not Available Not Available escitalop lacey 10 mg tablet TAKE 1 TABLET BY MOUTH ONCE DAILY active Not Available Not Available No t Available cyclobenz aprine 5 mg tablet TAKE 1 TO 2 TABLETS BY MOUTH AT NIGHT FOR MUSCLE SPASM 03/28 completed Not Available Not Available Not Available metoprolo l tartrate 25 mg tablet Take 1 tablet twice a day by oral route. 11/07 completed Not Available Not Available Not Available Atrovent HFA 17 mcg/actua tion aerosol inhaler Inhale 2 puffs by mouth EVERY 6 HOURS FOR 30 DAYS active Not Available Not Available No t Available valsartan 320 mg-hydroc hlorothia zide 25 mg tablet TAKE 1 TABLET BY MOUTH ONCE DAILY active Not Available Not Available No t Available hydrochlo rothiazid e 12.5 mg tablet Take 1 tablet every day by oral route. active Not Available Not Available No t Available Symbicort 160 mcg-4.5 mcg/actua tion HFA aerosol inhaler INHALE 2 PUFFS BY MOUTH TWICE DAILY active Not Available Not Available No t Available Symbicort 11/07 completed unsure of strength Not Available Not Available Not Available Eliquis 5 mg tablet TAKE 1 TABLET BY MOUTH TWICE DAILY active Not Available Not Available No t Available Spiriva Respimat 2.5 mcg/actua tion solution for inhalatio n INHALE 2 SPRAY(S) BY MOUTH ONCE DAILY active Not Available Not Available No t Available Breztri Aerospher e 160 mcg-9mcg- 4.8mcg/ac tuation HFA aerosol inhaler INHALE 2 PUFFS BY MOUTH TWICE DAILY active Not Available Not Available No t Available Paxlovid 300 mg (150 mg x 2)-100 mg tablets in a dose pack 07/26 completed Not Available Not Available Not Available Paxlovid 150 mg-100 mg tablets in a dose pack (Renal Dose) Take by oral route. Take two 150 mg and one 100 mg tablet twice daily for five days 07/26 completed Not Available Not Available Not Available Vitals Date Recorded Body height Body mass index (BMI) Body weight Heart rate Oxygen saturation Oxygen saturation in Arterial blood by Pulse oximetry Systolic blood pressure Diastolic blood pressure Provider Name and Address Organization Details Last Updated DateTime 3 182.88 cm 34.4 kg/m2 411094. 67 g 70 /min 95 % 95 % 152 mm[Hg] 100 mm[Hg] Katty Bolaños [employer] [facility] [email or web address] [facility] 3 14:34:25 Date Recorded Body height Body mass index (BMI) Body weight Heart rate Body temperature Oxygen saturation Oxygen saturation in Arterial blood by Pulse oximetry Systolic blood pressure Diastolic blood pressure Provider Name and Address Organization Details Last Updated DateTime 4 179.07 cm 36.1 kg/m2 603716. 05 g 91 /min 97 [degF] 95 % 95 % 138 mm[Hg] 80 mm[Hg] Katty Mcclain [employer] [facility] 4 14:53:47 Date Recorded Body height Body mass index (BMI) Body weight Heart rate Body temperature Oxygen saturation Oxygen saturation in Arterial blood by Pulse oximetry Systolic blood pressure Diastolic blood pressure Provider Name and Address Organization Details Last Updated DateTime 4 177.8 cm 34.4 kg/m2 222748. 17 g 92 /min 97 [degF] 93 % 93 % 118 mm[Hg] 64 mm[Hg] Katty Mcclain [employer] [facility] [employer] [facility] 4 10:15:04 Date Recorded Body height Body mass index (BMI) Body weight Heart rate Body temperature Oxygen saturation Oxygen saturation in Arterial blood by Pulse oximetry Systolic blood pressure Diastolic blood pressure Provider Name and Address Organization Details Last Updated DateTime 4 177.8 cm 37.2 kg/m2 158759. 42 g 69 /min 97 [degF] 91 % 91 % 122 mm[Hg] 84 mm[Hg] Katty Ohara [employer] [facility] [employer] [facility] 4 15:05:15 Date Recorded Body height Body mass index (BMI) Body weight Heart rate Body temperature Oxygen saturation Oxygen saturation in Arterial blood by Pulse oximetry Systolic blood pressure Diastolic blood pressure Provider Name and Address Organization Details Last Updated DateTime 4 177.8 cm 35.9 kg/m2 496858. 09 g 67 /min 97 [degF] 96 % 96 % 120 mm[Hg] 86 mm[Hg] VALERIA Dugan [facility] [employer] [facility] 4 12:14:36 Social History Question Answer Notes LastModified by Organization Details LastModified Time Tobacco Smoking Status Former Smoker Not Available [facility] 01/29/2023 09:12:54 Do You Have An Advance Directive? No Info Given Previously [email or web address] Information not available 09/09/2024 What Is Your Level Of Alcohol Consumption? None [email or web address] Information not available 09/09/2024 Are You Blind Or Do You Have Difficulty Seeing? No [id number] [id number] Information not available 01/29/2023 In The 14 Days Before Symptom Onset, Have You Had Close Contact With A Laboratory-conf irmed COVID-19 While That Case Was Ill? No [id number].[id number] [id number] Information not available 01/29/2023 In The 14 Days Before Symptom Onset, Have You Had Close Contact With A Person Who Is Under Investigation For COVID-19 While That Person Was Ill? No [id number].[id number] [id number] Information not available 01/29/2023 Are You Deaf Or Do You Have Serious Difficulty Hearing? Yes [email or web address] Information not available 08/26/2023 What Type Of Diet Are You Following? REGULAR [id number].[id number] [id number] Information not available 01/29/2023 Do You Or Have You Ever Used E-cigarettes Or Vape? Never Used Electronic Cigarettes MIGRATION.[id number] [id number] Information not available 01/29/2023 Have There Been Any Changes To Your Family Or Social Situation? No [email or web address] Information not available 08/26/2023 What Is The Fluoride Status Of Your Home? Fluoridated MIGRATION.0301 [id number] Information not available 01/29/2023 When Did You Quit Smoking? 16+yearssincelast cigarette MIGRATION.0301 [id number] Information not available 01/29/2023 Are There Any Guns Present In Your Home? Yes [id number].[id number] [id number] Information not available 01/29/2023 Do You Use Insect Repellent Routinely? No Information not available 08/26/2023 Where Do You Live? [facility] [email or web address] Information not available 08/26/2023 Guns Present In The Home? Yes Information not available 08/26/2023 Are You Able To Care For Yourself? Yes [email or web address] Information not available 08/26/2023 Are You Blind Or Do Yo Have Difficulty Seeing? No [email or web address] Information not available 08/26/2023 Are You Deaf Or Do You Have Serious Difficulty Hearing? Yes Has Hearing Aids [email or web address] Information not available 08/26/2023 Live Alone Of With Others? With Others [email or web address] Information not available 08/26/2023 Do You Have A Medical Power Of Road Traffic Controller? No [email or web address] Information not available 08/26/2023 What Was The Date Of Your Most Recent Tobacco Screening? 09/09/2024 Information not available 09/09/2024 Do You Have Any Pets? No [email or web address] Information not available 08/26/2023 What Is Your Relationship Status? [email or web address] Information not available 08/26/2023 Do You Use Your Seat Belt Or Car Seat Routinely? Yes [id number].[id number] [id number] Information not available 01/29/2023 Do You Have Smoke And Carbon Monoxide Detectors In Your Home? Yes [id number].[id number] [id number] Information not available 01/29/2023 At What Age Did You Start Smoking Tobacco? 22 Quit In 2000 [id number].[id number] [id number] Information not available 01/29/2023 Are You Passively Exposed To Smoke? No Information not available 08/26/2023 Do You Or Have You Ever Used Smokeless Tobacco? Never Used Smokeless Tobacco MIGRATION.0301 [id number] Information not available 01/29/2023 Are There Any Smokers In Your House? No [email or web address] Information not available 08/26/2023 How Much Tobacco Do You Smoke? 1 PPD MIGRATION.0301 [id number] Information not available 01/29/2023 Do You Use Sunscreen Routinely? Yes [id number].0301 [id number] Information not available 01/29/2023 Have You Recently Traveled Abroad? No MIGRATION.0301 [id number] Information not available 01/29/2023 Sex: Unknown Functional Status Question Answer Note LastModified by Organizat ion Details LastModified Time Do you have difficulty walking or climbing stairs? Yes uses a cane [email or web address] Information not available 09/09/2024 Do you have transportation difficulties? No [id number].[id number] Information not available 01/29/2023 Are you able to walk? YESASSIST uses a cane [email or web address] Information not available 08/26/2023 Do you have difficulty doing errands alone? No [id number].[id number] Information not available 01/29/2023 Are you able to care for yourself? Yes [id number] Information not available 01/29/2023 Do you have difficulty dressing or bathing? No MIGRATION.[id number] [id number] Information not available 01/29/2023 What is your exercise level? Occasional [id number].[id number] Information not available 01/29/2023 Mental Status Question Answer Note LastModified by Organizat ion Details LastModified Time Do you have difficulty concentrating, remembering or making decisions? No [id number] Information not available 01/29/2023 Family History Nothing Reported Notes:Mother 69 fro m ITP and complications following the splenectomy Father 83 from Cancer of the Lung Two brothers both frin DM, ASHD, and Atrial Fibrillation and renal complications Three sisters all living each has DM and HTN Medical History Condition Response NERVE DISEASE N BLINDNESS N RHEUMATIC FEVER N KIDNEY STONES N BLADDER PROBLEMS N MRSA N OTHER # 1 N POLIO N LUNG DISEASE/DISORDER N HISTORY OF DRUG ABUSE N RADIATION / CHEMOTHERAPY N COPD N Other # 2 N BLOOD DISEASES N EAR OR HEARING PROBLEMS N MUMPS N SHINGLES N BOWEL PROBLEMS N DEPRESSION (INCLUDING POST ) N STROKE/TIA N ULCERS N BENIGN PROSTATIC HYPERPLASIA N MEASLES N HYPOTENSION N MYOCARDIAL INFARCTION N OBESITY N GERD/NAUSEA N ANEURYSM N URINARY/BLADDER/KIDNEY PROBLEMS N CORONARY ARTERY DISEASE (CAD) N ADDICTION CONCERNS N Impotence N ENDOMETRIOSIS N USE OF BLOOD THINNERS N SKIN PROBLEMS N GASTROINTESTINAL DISORDER N PERIPHERAL VASCULAR DISEASE N MUSCLE,JOINT OR BONE PROBLEMS N GASTROINTESTINAL BLEEDING N BLOOD CLOTS N ASTHMA N CATARACTS N ERECTILE DYSFUNCTION N VARICOSITIES N GI PROBLEMS N Low Testosterone N INFERTILITY N AIDS/HIV N CHEMOTHERAPY / RADIATION N LIVER DISEASE N MALE HYPOGONADISM N HYPERTENSION N Deficiency N TOURETTE'S N ANXIETY DISORDER N BLOOD TRANSFUSION N ANEMIA/BLOOD DISORDER N CHRONIC EAR INFECTIONS N BRONCHITIS N TUBERCULOSIS N GLAUCOMA N FOOT PROBLEM N DIVERTICULITIS N SLEEP APNEA N CHICKENPOX N INFECTIOUS DISEASE N PROSTATE N HEART ARRHYTHMIA N INSOMNIA N HIGH CHOLESTEROL / HYPERLIPIDEMIA N EYE PROBLEMS N HYPERTHYROIDISM N EDEMA N CHRONIC PAIN SYNDROME N HYPOTHYROIDISM N CONSTIPATION N CAROTID BLOCKAGE N BACK / NECK PROBLEMS N HAVE YOU BEEN HOSPITALIZED OR SEEN IN [facility] IN THE PAST YEAR ? N ATHEROSCLEROSIS N BREAST PROBLEMS N DIALYSIS N ECZEMA N OSTEOPOROSIS N ARTHRITIS N NO SIGNIFICANT PAST MEDICAL HISTORY N APPENDICITIS N DIABETES, TYPE N BAD TEETH N ENT N HEARTBURN / REFLUX N AUTISM SPECTRUM DISORDER (ASD) N HEPATITIS / LIVER DISEASE N GOUT N SLEEP DISORDER N ALZHEIMER'S DISEASE N Brain Problems N DEMENTIA N HERPES N SEIZURES/EPILEPSY N HEADACHES/MIGRAINES N VASCULAR DISEASE N PACEMAKER N Blood Disorder N DIZZINESS N HEART DISEASE/HEART PROBLEMS N KIDNEY DISEASE N MULTIPLE SCLEROSIS N CANCER: SPECIFY N CARDIAC ARRHYTHMIA N ATRIAL FIBRILLATION N Gall Stones N PULMONARY EMBOLISM N AUTOIMMUNE DISEASE N Immunizations Vaccine Type Date Status Note Provider Nam e and Address Organization Details Recorded Time pneumococcal polysaccharide PPV23 1 completed Katty stephens [facility] 08/26/2023 14:38:26 Influenza, high-dose, quadrivalent, PF 3 completed Kattyjyoti stephens [facility] 08/26/2023 16:00:55 Influenza, split virus, trivalent, preservative 4 completed Not Available [facility] [place] 01/29/2023 09:21:35 Influenza, split virus, trivalent, preservative 3 completed Not Available [facility] 01/29/2023 09:21:35 influenza, unspecified formulation 2 completed Not Available [facility] 01/29/2023 09:21:35 COVID-19, mRNA, LNP-S, PF, 30 mcg/0.3 mL dose 2 completed Not Available [facility] 01/29/2023 09:21:35 Influenza, split virus, quadrivalent, preservative 1 completed Not Available [facility] 01/29/2023 09:21:35 COVID-19, mRNA, LNP-S, PF, 30 mcg/0.3 mL dose 1 completed Not Available [facility] 01/29/2023 09:21:36 SARS-COV-2 (COVID-19) vaccine, UNSPECIFIED 1 completed Not Available [facility] 01/29/2023 09:21:36 SARS-COV-2 (COVID-19) vaccine, UNSPECIFIED 1 completed Not Available [facility] 01/29/2023 09:21:36 Influenza, high-dose, quadrivalent, PF 0 completed Not Available [facility] 01/29/2023 09:21:36 Influenza, high-dose, trivalent, PF 0 completed Not Available [facility] 01/29/2023 09:21:36 Influenza, high-dose, trivalent, PF 8 completed Not Available [facility] 01/29/2023 09:21:37 Influenza, high-dose, trivalent, PF 7 completed Not Available [facility] 01/29/2023 09:21:37 Influenza, split virus, quadrivalent, PF 6 completed Not Available [facility] 01/29/2023 09:21:37 Influenza, split virus, quadrivalent, preservative 5 completed Not Available [facility] 01/29/2023 09:21:37 Pneumococcal conjugate PCV 13 5 completed Not Available [facility] 01/29/2023 09:21:37 Influenza, high-dose, trivalent, PF 4 completed Odin Alex MD [address] [facility], [facility] [address], [place], [address], [facility] [email or web address] [facility] 09/09/2024 12:50:45 Past Encounters Encounter ID Performer Location Encounter Start Date Encounter Closed Date Diagnosis/Indication Diagnosis SNOMED-CT Code Diagnosis ICD10 Code Diagnosis Note [id number] [facility] [place] [address] [place] [address] y , [place] [address] 05/15/2021 00:00:00 05/15/2021 13:03:34 [id number] [facility] [address] [facility], [facility] [address] [place] [address] 08/01/2021 00:00:00 08/01/2021 12:38:03 [id number] [facility] [place] [address] , [place] [address] 11/27/2021 00:00:00 11/27/2021 15:08:49 [id number] [facility] [place] [address] [place] [address] 03/26/2022 00:00:00 03/26/2022 15:38:17 [id number] [facility] [place] [address] , [place] [address] 05/31/2022 00:00:00 05/31/2022 11:59:19 [id number] [facility] [place] [address] [place] [address] [place] [address] 07/26/2022 00:00:00 07/26/2022 12:34:00 [id number] [facility] [place] [address] [place] [address] [place] [address] 12/13/2022 00:00:00 12/13/2022 15:11:30 [id number] Odin Alex MD [facility] [place] [address] [place] [address] [place] [address] 03/28/2023 14:54:06 03/28/2023 15:35:24 Benign essential hypertension 5035863 I10 Hypercholesterolemia 136 72284 E78.00 Obstructiv e sleep apnea syndrome 19654236 G47.33 Gastroesop hageal reflux disease 061140701 K21.9 Obese class II 231246443 1 40330 E66.9 Atrial fibrillation 4943 6004 I48.91 Disorder of prostate 302 54753 N42.9 [id number] Odin Alex MD [facility] [place] [address] [place] [address] [place] [address] 08/26/2023 14:15:37 08/26/2023 15:31:19 Adult health examination 945433312 Z00.00 Screening for disorder 995242519 Z13.9 Benign ess ential hypertension 6361574 I10 Atrial fibrillation 4943 6004 I48.91 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 96530425 M48.062 Administra tion of influenza vaccine 96016590 Z23 [id number] Odin Alex MD [facility] [place] [address] [place] [address] [place] [address] 09/23/2023 14:20:04 09/23/2023 15:01:03 Leukocytosis 942805637 D72.608 [id number] Odin Alex MD [facility] [address], [facility] [address] [place] [address] 10/16/2023 14:26:42 10/16/2023 14:57:58 Cellulitis of toe of right foot 5049990657 2705975 L03.565 [id number] Odin Alex MD [facility] [address] [address] 12/30/2023 14:41:53 12/30/2023 15:30:52 Benign essential hypertension 5942006 I10 Atrial fibrillation 4943 6004 I48.91 Hypercholesterolemia 136 43063 E78.00 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 38616890 M48.588 [id number] Odin Alex MD [facility] [address] [address] 01/19/2024 10:14:13 01/19/2024 10:52:34 Headache 68810997 G44.377 [id number] Odin Alex MD [facility] [place] [address] [place] [address] [place] [address] 04/27/2024 14:44:48 04/27/2024 15:35:58 Benign essential hypertension 6959421 I10 Atrial fibrillation 4943 6004 I48.91 Anxiety 25373763 F41.9 Chronic ob structive pulmonary disease 95483749 J44.9 Gastroesop hageal reflux disease 944686054 K21.9 Hypercholesterolemia 136 99838 E78.00 Obese class II 504813127 1 20818 E66.9 Disorder of prostate 302 46096 N42.9 [id number] Odin Alex MD [facility] [place] [address] [place] [address] , [place] [address] 09/09/2024 12:06:53 09/09/2024 14:13:29 Adult health examination 682719459 Z00.00 Screening for disorder 719589423 Z13.9 Administra tion of influenza vaccine 50913770 Z23 Benign ess ential hypertension 2194628 I10 Atrial fibrillation 4943 6004 I48.91 Chronic ob structive pulmonary disease 39567173 J44.9 Hypercholesterolemia 136 03650 E78.00 Obese class II 432784831 1 34401 E66.9 Hyperglycemia 51442281 R 73.9 Health Concerns Section Related Observation LastModified by Organization Detai ls LastModified Time None Recorded Concern Status LastModified by Organization Details LastModified Time None Recorded Advance Directives Directive N: Info given previously Payers Encounter Date Sequence Insurance Name Policy Number Policy Richards Covered Member ID Richards Member ID Guarantor Name 10/16/2023 1 [employer] (MEDICARE REPLACEMENT PPO) [id number] Mesfin L Russ [id number] Mesfin L Russ 12/30/2023 1 [employer] (MEDICARE REPLACEMENT PPO) [id number] Mesfin L Russ [id number] Mesfin L Russ 01/19/2024 1 [employer] (MEDICARE REPLACEMENT PPO) [id number] 1 Mesfin L Russ [id number] Mesfin L Russ 04/27/2024 1 [employer] (MEDICARE REPLACEMENT PPO) [id number] 1 Mesfin L Russ [id number] Mesfin L Russ 09/09/2024 1 [employer] (MEDICARE REPLACEMENT PPO) [id number] Mesfin L Russ [id number] Mesfin L Russ Notes Date Note Type Note Provider Name and Address Organization Details Recorded Time 10/16/2023 text/html Patient Name: Celestino RussDate Of Service: October ( 10.16.2023 ): 1945 Age: 78 There has been approximately a .5 lb weight gain since 08/26/2023. This represents approximately a .2% change in weight. Weight change attributable to lifestyle changes. Vital Signs:Blood Pressure: Sitting Rt. Arm 152/100Pulse: Sitting 70 /min and RegularRespiratory Rate: 12Height 72 in or 1.8 mWeight 253.5 lb or 115.0 kgBMI 34.4 Chief Complaint: Cellulitis right foot Problems or conditions discussed in the HPI were the only ones reviewed during the encounter.Only social and family history addressed in the HPI were reviewed during this encounter. Attendant(s): NoneConstitutional and Systemic Symptoms:none Medication Reconciliation: from medication list. History of Present Illness #1. Pain and swelling right foot initially beginning on the great toe secondly moving to the 2nd 3rd and 4th toe with some swelling of the dorsum of the 4th with associated erythematous changes creeping up the foot with some localized swelling. Consistent with a cellulitis. No associated fever, chills or other systemic or constitutional symptoms.: #2. Hx of obesity. Currently Class 1 Obesity BMI 30-34.99. Has tried numerous dietary support and supplements with no benefit. Instructed on the health consequences of the obese status particularly cancer - diabetes and heart disease. Discussed new modalities of weight loss including GLP-1 medications that are used to treat diabetes. Potential candidate for bariatric surgery: No. Wishes to be evaluated by Dietary: No and was offered to be evaluated and instructed by nail polish brush machine feeder on weight loss diet.Medication List Reviewed and Reconciled 10/16/2023Methotrexate 2.5 GM /100 ML ( 25 MG / ML) (INJECTABLE - INJECTION) 5 Tabs WeeklySpiriva 2.5MCG (SPRAY - INHALATION) One DailyXanax 0.25 TidSingulair 10 MG (TABLET - ORAL) One DailyGabapentin 100 MG (TABLET - ORAL) One BidFurosemide 20 MG (TABLET - ORAL) One DailyEliquis 5 MG (TABLET - ORAL) Once DailyProtonix 40 MG (TABLET, DELAYED RELEASE - ORAL) One Daily For RefluxPravachol 40 MG (TABLET - ORAL) At Bedtime OneValsartan 25 MG-320 MG (TABLET - ORAL) DailyMetoprolol Succinate Er 100 MG One Tablet At DinerVaccination and Wfypzwzvqokp3274-73 Phaxycagj8169-51 Covid Locdpf4165-12 Prevnar 13 Vj3441-01 PneumovaxSurgical HistoryLeft Cataract, Right Cataract, Right Inguinal Hernia, Pilonidal Cyst times 2Preventative Testing Confirmed by Our Wbqzbxb7208/26/2023 ALBUMIN 3.8 G/DL N008/14/2023 CT NAPAQN4503/31/2023 PSA 2.06 NG/ML N005/08/2015 COLONOSCOPY (10 YEARS) 5002/28/2011 HAIC 5.8 % HSocial HistorySmoke one pack daily for approximately 20 years and quit in 2000Drinks 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 This represents approximately a .6% change in weight. Weight change attributable to lifestyle changes. Vital Signs:Blood Pressure: Sitting Rt. Arm 138/80Pulse: Sitting 91 /min and RegularRespiratory Rate: 12Height 70.5 in or 1.8 mWeight 255 lb or 115.7 kgBMI 36.1Temperature: 97 F or 36.1 CPulse Oximetry: 95 % at rest on no oxygen Chief Complaint: Addressed in HPI Problems or conditions discussed in the HPI were the only ones reviewed during the encounter.Only social and family history addressed in the HPI were reviewed during this encounter. Attendant(s): NoneConstitutional and Systemic Symptoms:none Medication Reconciliation: from medication list. Ohnqkyrmyes82-22-4036: CT scan of chest abdomen pelvis demonstrated a small region of consolidation in the left upper lobe consistent with pneumonia. Penetrating atherosclerotic ulcer noted along the distal abdominal aorta but no aneurysm formation. Liver surface area nodule which could represent mild cirrhosis or simply small nodule. There is a small cystic lesion left kidney Two too small to be evaluated. Also a small 7.5 mm left lower lobe nodule which needs to be followed up in 12 months. 09-23-2023: Echocardiogram demonstrated an ejection fraction of approximately 60%. Mild mitral as well as tricuspid valve regurgitation. No other significant valvular abnormalities. 10-20-2023: Cellulitis of the right foot 11-13-2023: MRI of the right foot demonstrates osteomyelitis involving the entire distal phalanx of the right 2nd toe 12-23-2023: Ultrasound the abdominal aorta demonstrates no evidence any aneurysm. Mild plaque formation is demonstrated throughout the mid abdominal aorta. History of Present Illness #1. Essential Hypertension: Stage: Stage I Interval Neurological Complaints no headaches, dizziness, weakness, visual changes, ataxia and aphasia. No shortness of breath, orthopnea or cardiovascular symptoms. No other symptoms related to end organ damage. Pressure has been under excellent control. Currently normal. No other end organ symptoms or findings. Therapy reviewed regarding management of hypertension and includes salt restriction and Metoprolol Succinate Er, Norvasc and Valsartan. #2. Atrial Fibrillation: Type: Paroxysmal with recurrent episodes lasting less than 7 days. Further classification: Non-valvular. Associated history of essential hypertension. No attending hx of any shortness of breath, palpitations, syncopal or neurological symptoms. Current medications: Eliquis and Metoprolol Succinate Er. Rate control: controlled ventricular response [id number] Criteria: congestive heart failure, Age > 75 and and considered moderate risk for embolic phenomenon. Anticoagulation: Eliquis #3. Type II Hypercholesterolaemia: Currently taking medication and tolerating well. No interval complaints of any muscle pain or arthralgia. No significant liver changes with medications. Last lipid panel: fair control. Therapy reviewed regarding treatment of cholesterol management and include diet and Pravachol. #4. Spinal Stenosis: History of the Lumbar spinal stenosis. Neurogenic Claudication: no. No change in level of pain, numbness, tingling or any weakness. Is able to perform activities of daily living. No urinary or fecal incontinence. No change in exercise tolerance. Active Medication ListMethotrexate 2.5 GM /100 ML ( 25 MG / ML) (INJECTABLE - INJECTION) 5 Tabs WeeklySpiriva 2.5MCG (SPRAY - INHALATION) One DailyXanax 0.25 TidSingulair 10 MG (TABLET - ORAL) One DailyGabapentin 100 MG (TABLET - ORAL) One BidFurosemide 20 MG (TABLET - ORAL) One DailyEliquis 5 MG (TABLET - ORAL) Once DailyProtonix 40 MG (TABLET, DELAYED RELEASE - ORAL) One Daily For RefluxNorvasc 10 MG TABLET Once DailyPravachol 40 MG (TABLET - ORAL) At Bedtime OneValsartan 25 MG-320 MG (TABLET - ORAL) DailyMetoprolol Succinate Er 100 MG One Tablet At Diner Vaccination and Jvhqnztcloxa7017-52 Odtblqmuo4010-43 Covid Hzlgzc4207-40 Prevnar 13 No7004-27 Pneumovax Surgical Fttllwr0860-66 Distal Phalanx Amputation Rt. 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 Arm 118/64Pulse: Sitting 92 /min and RegularRespiratory Rate: 12Height 70 in or 1.8 mWeight 240 lb or 108.9 kgBMI 34.4Temperature: 97 F or 36.1 CPulse Oximetry: 93 % at rest on no oxygen Chief Complaint: Addressed in HPI Problems or conditions discussed in the HPI were the only ones reviewed during the encounter.Only social and family history addressed in the HPI were reviewed during this encounter. Attendant(s): WifeConstitutional and Systemic Symptoms:none Medication Reconciliation: from medication list. History of Present Illness #1. Approximately 2-3 week history of intermittent episodes of right-sided headaches. The headaches began just to the right of the naris on the right-hand side. Then spread up to the ocular and up into the frontal temporal and parietal area of the scalp. May last up to 1-2 hours. Not associated with any type of nausea, vomiting, visual changes or any other focal neurological symptoms. No associated rash. No history of any trauma. Has had some minor sinus complaints which do not appear to bear any relationship to these current symptomatology. Had a CT head scan performed which showed some multiple evidence of small infarcts on the right frontal parietal area. Does have known history of atrial fibrillation and is on anticoagulation and may represent small embolic phenomena in the past. None appear to be acute.: Active Medication ListMethotrexate 2.5 GM /100 ML ( 25 MG / ML) (INJECTABLE - INJECTION) 5 Tabs WeeklySpiriva 2.5MCG (SPRAY - INHALATION) One DailyXanax 0.25 TidSingulair 10 MG (TABLET - ORAL) One DailyFurosemide 20 MG (TABLET - ORAL) One DailyEliquis 5 MG (TABLET - ORAL) Once DailyProtonix 40 MG (TABLET, DELAYED RELEASE - ORAL) One Daily For RefluxUltram 50 MG One Four Times A DayPravachol 40 MG (TABLET - ORAL) At Bedtime OneValsartan 25 MG-320 MG (TABLET - ORAL) DailyMetoprolol Succinate Er 100 MG One Tablet At Diner Vaccination and Seexnxuvwgup3401-12 Zbflidemp2921-03 Covid Jgypbg6427-95 Prevnar 13 Af5208-74 Pneumovax Surgical Mcyakmj2333-45 Distal Phalanx Amputation Rt. 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 This represents approximately a 7.9% change in weight. Weight change attributable to lifestyle changes. Vital Signs:Blood Pressure: Sitting Rt. Arm 122/84Pulse: Sitting 69 /min and RegularRespiratory Rate: 12Height 70 in or 1.8 mWeight 259 lb or 117.5 kgBMI 37.2Temperature: 97 F or 36.1 CPulse Oximetry: 91 % at rest on no oxygen Chief Complaint: Addressed in HPI Problems or conditions discussed in the HPI were the only ones reviewed during the encounter.Only social and family history addressed in the HPI were reviewed during this encounter. Attendant(s): NoneConstitutional and Systemic Symptoms:none Medication Reconciliation: from medication list. Yemuogkcgqd63-00-1714: Echocardiogram demonstrated an ejection fraction of approximately 60%. Mild mitral as well as tricuspid valve regurgitation. No other significant valvular abnormalities. 12-23-2023: Ultrasound the abdominal aorta demonstrates no evidence any aneurysm. Mild plaque formation is demonstrated throughout the mid abdominal aorta. 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 No acute intracranial process is noted. 03-05-2024: CT of the thorax without contrast showed a stable 4 mm left lower lobe pulmonary nodule History of Present Illness #1. Essential Hypertension: Stage: Stage I Interval Neurological Complaints no headaches, dizziness, weakness, visual changes, ataxia, aphasia and apraxia. No shortness of breath, orthopnea or cardiovascular symptoms. No other symptoms related to end organ damage. Pressure has been under excellent control. Currently normal. No other end organ symptoms or findings. Therapy reviewed regarding management of hypertension and includes salt restriction and Metoprolol Succinate Er and Valsartan. #2. Atrial Fibrillation: Type: Paroxysmal with recurrent episodes lasting less than 7 days. Further classification: Non-valvular. Associated history of HTN. No attending hx of any shortness of breath, palpitations, syncopal or neurological symptoms. Current medications: Metoprolol Succinate Er. Rate control: controlled ventricular response [id number] Criteria: hypertension, Age > 75 and and considered moderate risk for embolic phenomenon. Anticoagulation: Eliquis #3. Type II Hypercholesterolaemia: Currently taking medication and tolerating well. No interval complaints of any muscle pain or arthralgia. No significant liver changes with medications. Last lipid panel: fair control. Therapy reviewed regarding treatment of cholesterol management and include diet and Pravachol. #4. COPD: Hx of Emphysema currently stable. There has been no interval change in exercise tolerance an shortness of breath. No change in sputum production, color or consistency. No fever, chills, weight loss or other constitutional symptoms. Gold Scale: Mild. MRC Scale: normal walking. Smoking: not currently smoking Current medications: Spiriva Using nebulizer Treatments: No. Uses does not use supplemental oxygen #5. Hx of esophageal reflux currently stable. Hx of Complications: none The severity, duration and intensity of symptoms have improved. Frequency: most meals Treatment consists medications taken on a regular basis. Current therapy includes Protonix. There has been no nausea, eructation, vomiting, hematemesis, dysphagia, velopharyngeal insufficiency and odynophagia. No change in he frequency or intensity of symptoms. Has had no melena. Has had no . Discussed use of H2 antagonists and the possibility of trying to reduce the frequency of the use of any PPI inhibitors and try H2 antagonists to see if symptoms can be controlled with lease intensive therapy since a number of complications are associated with chronic prolonged use of PPI inhibitors. #6. Anxiety Disorder: History of anxiety disorder. There has been no panic attacks. No interval complaints of any vegetative or other signs of depression. Taking Escitalopram and Xanax. Discussed possibility of decreasing and weaning off medication. Feels that current regimen is working fine and wishes not to change the current treatment regimen. Medication not causing any sedation or cognitive dysfunction and there is no contraindication to continue current therapy. #7. Hx of obesity. Currently Class 2 Obesity BMI 35-39.99. Has tried numerous dietary support and supplements with no benefit. Instructed on the health consequences of the obese status particularly cancer - diabetes and heart disease. Discussed new modalities of weight loss including GLP-1 medications that are used to treat diabetes. Potential candidate for bariatric surgery: No. Wishes to be evaluated by Dietary: No and was offered to be evaluated and instructed by nail polish brush machine feeder on weight loss diet. Active Medication ListMethotrexate 2.5 GM /100 ML ( 25 MG / ML) (INJECTABLE - INJECTION) 5 Tabs WeeklySpiriva 2.5MCG (SPRAY - INHALATION) One DailyXanax 0.25 TidGabapentin 100 MG CAPSULE One Three Times A DaySingulair 10 MG (TABLET - ORAL) One DailyFurosemide 20 MG (TABLET - ORAL) One DailyEliquis 5 MG (TABLET - ORAL) Once DailyProtonix 40 MG (TABLET, DELAYED RELEASE - ORAL) One Daily For RefluxUltram 50 MG One Four Times A DayEscitalopram 10 MG TABLET One DailyPravachol 40 MG (TABLET - ORAL) At Bedtime OneValsartan 25 MG-320 MG (TABLET - ORAL) DailyMetoprolol Succinate Er 100 MG One Tablet At Diner Vaccination and Zqpvmcfevzsv7415-31 Ozwvxqlmq2570-26 Covid Jpcqmo2637-52 Prevnar 13 Er6745-24 Pneumovax Surgical Fhbxwma1424-43 Distal Phalanx Amputation Rt. 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 This represents approximately a 3.5% change in weight. Weight change attributable to lifestyle changes. Vital Signs:Blood Pressure: Sitting Rt. Arm 120/86Pulse: Sitting 67 /min and RegularRespiratory Rate: 16Height 70 in or 1.8 mWeight 250 lb or 113.4 kgBMI 35.9Temperature: 97 F or 36.1 CPulse Oximetry: 96 % at rest on no oxygen Chief Complaint: Addressed in HPI Problems or conditions discussed in the HPI were the only ones reviewed during the encounter.Only social and family history addressed in the HPI were reviewed during this encounter. Attendant(s): WifeConstitutional and Systemic Symptoms:none Medication Reconciliation: from medication list. [id number]: Echocardiogram demonstrated an ejection fraction of approximately 60%. Mild mitral as well as tricuspid valve regurgitation. No other significant valvular abnormalities. 12-23-2023: Ultrasound the abdominal aorta demonstrates no evidence any aneurysm. Mild plaque formation is demonstrated throughout the mid abdominal aorta. 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 No acute intracranial process is noted. 03-05-2024: CT of the thorax without contrast showed a stable 4 mm left lower lobe pulmonary nodule 06-01-2024: renal ultrasound demonstrates normal-appearing kidneys with no evidence of any hydronephrosis. History of Present Illness Reviewed the findings of the preventative health visit. Addressed all areas with the patient, patient's family or caregivers. Preventative examinations and testing immunizations - vaccinations, colonic neoplasm screening, PSA and LDCT thorax all reviewed and ordered where patient was amenable to the recommendations. Cognitive function was normal. Depression addressed and where necessary medications were adjusted or instituted. End of life and living will briefly discussed with patient and where these can be filled out and legally executed. Other blood and imaging studies were ordered if considered necessary. Other recommendations may be found in the encounter note. #1. Essential Hypertension: Stage: Stage I Interval Neurological Complaints no headaches, dizziness, weakness, visual changes, ataxia, aphasia and apraxia. No shortness of breath, orthopnea or cardiovascular symptoms. No other symptoms related to end organ damage. Pressure has been under excellent control. Currently normal. No other end organ symptoms or findings. Therapy reviewed regarding management of hypertension and includes salt restriction and Furosemide, Metoprolol Succinate Er and Valsartan. #2. Atrial Fibrillation: Type: Paroxysmal with recurrent episodes lasting less than 7 days. Further classification: Non-valvular. Associated history of essential hypertension. No attending hx of any shortness of breath, palpitations, syncopal or neurological symptoms. Current medications: Eliquis and Metoprolol Succinate Er. Rate control: controlled ventricular response [id number] Criteria: Age > 75 for embolic phenomenon. Anticoagulation: Eliquis #3. Type II Hypercholesterolaemia: Currently taking medication and tolerating well. No interval complaints of any muscle pain or arthralgia. No significant liver changes with medications. Last lipid panel: fair control. Therapy reviewed regarding treatment of cholesterol management and include diet and Pravachol. #4. COPD: Hx of Emphysema currently stable. There has been no interval change in exercise tolerance an shortness of breath. No change in sputum production, color or consistency. No fever, chills, weight loss or other constitutional symptoms. Gold Scale: Moderate. MRC Scale: normal walking. Smoking: not currently smoking Current medications: Singulair and Spiriva Using nebulizer Treatments: No. Uses supplemental oxygen #5. Hx of obesity. Currently Class 2 Obesity BMI 35-39.99. Has tried numerous dietary support and supplements with no benefit. Instructed on the health consequences of the obese status particularly cancer - diabetes and heart disease. Discussed other modalities of weight loss no . Potential candidate for bariatric surgery: No. Wishes to be evaluated by Dietary: No and was offered to be evaluated and instructed by nail polish brush machine feeder on weight loss diet. Active Medication ListMethotrexate 2.5 GM /100 ML ( 25 MG / ML) (INJECTABLE - INJECTION) 5 Tabs WeeklySpiriva 2.5MCG (SPRAY - INHALATION) One DailyXanax 0.25 TidGabapentin 100 MG CAPSULE One Three Times A DaySingulair 10 MG (TABLET - ORAL) One DailyFurosemide 20 MG (TABLET - ORAL) One DailyEliquis 5 MG (TABLET - ORAL) Once DailyProtonix 40 MG (TABLET, DELAYED RELEASE - ORAL) One Daily For RefluxUltram 50 MG One Four Times A DayEscitalopram 10 MG TABLET One DailyPravachol 40 MG (TABLET - ORAL) At Bedtime OneValsartan 25 MG-320 MG (TABLET - ORAL) DailyMetoprolol Succinate Er 100 MG One Tablet At Diner Vaccination and Immunization( ) 2024-08 INFLUENZA( ) 2011-08 PNEUMOVAX(X) 2015-01 PREVNAR 13 GC PREVNAR 20 Needed(X) 2021-08 COVID PFIZER Surgical [id number] Distal Phalanx Amputation Rt. 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
--- OUTSIDE RECORDS SUMMARY | 2024-12-24 04:49 | XMS_ITS | CONTINUITY OF CARE DOCUMENT ---
Author Name darline gregorio Address Unknown Organization [facility] Address [address] [place] [address] Phone [phone] Care Team Providers Care Float Remover Name Role Phone Homero LEACH, Chay Unavailable ESTRELLITA LEACH, CATHRYN Unavailable [phone] CATHRYN HARO MD Unavailable PROBLEMS Condition Status Date Provider Notes Abnormal nuclear stress test active Dilan castrejon GERD active Chay Valentin MD Hyperlipidemia active Chay Valentin MD Atrial fibrillation active Chay Valentin MD Shortness of breath active Dilan Horner Chest pain active Dilan Horner 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, partial, right foot active Chay Valentin MD CAD 80% pLAD s/p SONIA, 10/2024 active Dilan nealedtoby Edema-BLE active Chay Valentin MD Aortic aneurysm, abdominal active Chay malik MD Leg edema, bilateral active Dilan Horner 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 HTN essential--echo ef normal 08/2024OSA--severe on BIPAP with T8Sbiur painShortness of breath - In-person encounter Office Visit Chay Valentin MD [facility] Aortic aneurysm, abdominal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, partial, right foot - In-person encounter Office Visit Chay Valentin MD [facility] CASTRO--severe on BIPAP with O2 - In-person encounter Office Visit Chay Valentin MD [facility] - In-person encounter Office Visit Chay Valentin MD [facility] CASTRO--severe on BIPAP with O2CAD 80% pLAD s/p SONIA, 10/2024 - In-person encounter Office Visit Chay Valentin MD [facility] - In-person encounter Office Visit Chay Valentin MD [facility] HTN essential--echo ef normal 08/2024Leg edema, bilateralAortic aneurysm, abdominalEdema-BLE - In-person encounter Office Visit Chay Valentin MD [facility] HTN essential--echo ef normal 08/2024OSA--severe on BIPAP with O2 - In-person encounter Office Visit Chay Valentin MD [facility] Family History of Hypertension:Obesity - In-person encounter Office Visit Chay Valentin MD [facility] - In-person encounter Office Visit Chay Valentin MD [facility] Diabetes mellitus VITAL SIGNS Date Observation Value Provider Body Mass Index (Ratio) 35.67 kg/m2 Tim Valentin MD blood pressure, diastolic 70 mm[Hg] Ke ana Zahraa blood pressure, systolic 110 mm[Hg] Jenna ri Zahraa oxygen saturation, oximetry 99 % Isidra Vladimirjohanaer pulse rate 75 /min Isidra Vladimire lder weight E&M 263 [lb_av] Isidra Pernellnenfe lder height E&M 72 [in_i] Isidra Pernellnenfe lder Body Mass Index (Ratio) 35.53 kg/m2 Bentley De La Garza MD blood pressure, diastolic 85 mm[Hg] Ka yla Ruple blood pressure, systolic 136 mm[Hg] Analisa la [facility] pulse rate 73 /min Mary Ellen [facility] oxygen saturation, oximetry 99 % Mary Ellen Ruple weight E&M 262 [lb_av] Mary Ellen Ruple height E&M 72 [in_i] Mary Ellen [facility] Body Mass Index (Ratio) 34.93 kg/m2 Tim Valentin MD blood pressure, diastolic 88 mm[Hg] Ky flo Abiodun blood pressure, systolic 150 mm[Hg] Kyl ia Abiodun oxygen saturation, oximetry 97 % Kylia Abiodun pulse rate 83 /min Kylia Abiodun respiratory rate E&M 12 /min Kyflo montoya weight E&M 257.6 [lb_av] Kylia Abiodun blood pressure, cuff size regular Ky flo Abiodun height E&M 72 [in_i] Kylia Abiodun Body Mass Index (Ratio) 35.26 kg/m2 Tim Valentin MD blood pressure, diastolic 98 mm[Hg] Ana Luisa nkLogic blood pressure, systolic 165 mm[Hg] Sommer kLogic blood pressure, cuff size regular Fa [facility]iatric blood pressure, diastolic 98 mm[Hg] Fa Psychiatric blood pressure, systolic 165 mm[Hg] Live [facility] pulse rate 66 /min [facility] respiratory rate E&M 16 /min Humaira Collier deidra oxygen saturation, oximetry 98 % [facility] weight E&M 260 [lb_av] [facility] height E&M 72 [in_i] [facility] Body Mass Index (Ratio) 35.67 kg/m2 Tim Valentin MD blood pressure, cuff size large Ke rri Gruenenfeld blood pressure, diastolic 86 mm[Hg] Ke rri Gruenenfelder blood pressure, systolic 146 mm[Hg] Jenna ri Pernellnenfjohanaer oxygen saturation, oximetry 98 % Isidra Césarnfjohanaer respiratory rate E&M 12 /min Isidra martinez pulse rate 67 /min Isidra Pernellnejovannie ld weight E&M 263 [lb_av] Isidra Gruenenfe lder height E&M 72 [in_i] Isidra Gruenenfe lder blood pressure, cuff size large Ri leonardo Sanchez blood pressure, diastolic 93 mm[Hg] Ri leonardo Daniel blood pressure, systolic 160 mm[Hg] Rene aliza Sanchez oxygen saturation, oximetry 96 % Sara Sanchez respiratory rate E&M 16 /min Olivia Sanchez pulse rate 69 /min Sara gordon height E&M 72 [in_i] Sara gordon Body Mass Index (Ratio) 35.34 kg/m2 Tim Valentin MD blood pressure, diastolic 86 mm[Hg] Li nkLogic blood pressure, systolic 133 mm[Hg] Sommer kLog pulse rate 38 /min Vielka Juan blood pressure, diastolic 86 mm[Hg] St alexus Martinez blood pressure, systolic 133 mm[Hg] Sta kal Juan respiratory rate E&M 18 /min Vielka Kesha audrey oxygen saturation, oximetry 97 % Vielka Juan weight E&M 260.6 [lb_av] Vielka Juan height E&M 72 [in_i] Vielka Juan Body Mass Index (Ratio) 34.93 kg/m2 Tim Valentin MD blood pressure, cuff size large Ta nesha Van blood pressure, diastolic 96 mm[Hg] Ta nesha Van blood pressure, systolic 160 mm[Hg] [facility] oxygen saturation, oximetry 97 % [facility] respiratory rate E&M 16 /min [facility] pulse rate 74 /min Jazmin Van weight E&M 257.6 [lb_av] Jazmin Van height E&M 72 [in_i] Jazmin Van Body Mass Index (Ratio) 36.61 kg/m2 Tim Valentin MD blood pressure, diastolic 92 mm[Hg] Ca therine Sorrento blood pressure, systolic 160 mm[Hg] Cat herine Sorrento oxygen saturation, oximetry 96 % Kiki Herberth respiratory rate E&M 16 /min Catheri ne Herberth pulse rate 87 /min Kiki Herberth weight E&M 270 [lb_av] Kiki Sorrento blood pressure, cuff size regular Ca therine Sorrento height E&M 72 [in_i] Kiki Herberth Body Mass Index (Ratio) 34.85 kg/m2 Tim Valentin MD blood pressure, diastolic 98 mm[Hg] Li nkLogic blood pressure, systolic 142 mm[Hg] Sommer kLogradha blood pressure, diastolic 98 mm[Hg] Rh onjorje Ebonie blood pressure, systolic 142 mm[Hg] Rho stevo Loomis oxygen saturation, oximetry 97 % Radha Loomis respiratory rate E&M 16 /min Radha Loomis pulse rate 71 /min Radha Loomis blood pressure, resting Yes Shilan jorje Loomis blood pressure, cuff size regular Rh rebeka Loomis weight E&M 257 [lb_av] Radha Loomis height E&M 72 [in_i] Radha Loomis Body Mass Index (Ratio) 35.53 kg/m2 Tim Valentin MD blood pressure, cuff size large Ke rri Zahraa blood pressure, diastolic 100 mm[Hg] Ke rri Zahraa blood pressure, systolic 170 mm[Hg] Jenna Vital oxygen saturation, oximetry 96 % Isidra Vital respiratory rate E&M 16 /min Isidra martinez pulse rate 82 /min Isidra mata weight E&M 262 [lb_av] Isidra Shanda mata height E&M 72 [in_i] Isidra mata Body Mass Index (Ratio) 35.39 kg/m2 Tim Valentin MD blood pressure, diastolic 113 mm[Hg] To [facility] blood pressure, systolic 173 mm[Hg] Ton julius Patten blood pressure, resting Yes [facility] oxygen saturation, oximetry 98 % [facility] respiratory rate E&M 16 /min [facility] pulse rate 58 /min [facility] temperature E&M 97.3 [degF] [facility] temperature site temporal [facility] weight E&M 261 [lb_av] [facility] height E&M 72 [in_i] [facility] ALLERGIES No Known Drug Allergies RESULTS Date Observation Value Provider Reference Range Interpretation Location 8 LDL cholesterol, serum 56 mg/dL Robby Fish HISTORY OF MEDICATION USE Medication Status Instructions Dates Provider Indications Com ments valsartan-hydrochloro thiazide 160-12.5 mg tablet active Take 1 tablet by mouth once daily 12/20 Dilan Horner Plavix 75 mg tablet active Take 1 table t by mouth once a day Mary Ellen Martinez metoprolol succinate 25 mg tablet extended release 24 hr active Take 1 tablet by mouth once daily 12/19 Dilan Horner metoprolol succinate 100 mg tablet extended release 24 hr completed Take 1 tablet by mouth once daily 12/04 - 12/19 Dilan Horner furosemide 40 mg tablet active Dilan Horner trazodone 100 mg tablet active TAKE 1 TABLET BY MOUTH AT BEDTIME 03/01 Chay Valentin MD amlodipine 10 mg tablet active TAKE 1 TABLET BY MOUTH EVERY DAY 12/29 Dilan Horner amlodipine 5 mg tablet completed Take 1 tablet by mouth every night 12/15 - 12/29 Dilan Horner furosemide 20 mg tablet completed TAKE 1 TABLET BY MOUTH ONCE DAILY - Dilan Horner traZODone HCl 100 MG Oral Tablet completed TAKE 1 TABLET BY MOUTH AT BEDTIME - 12/04 Yoan Rizo trazodone 100 mg tablet completed Take 1 tablet by mouth at bedtime TAKE 1 TABLET BY MOUTH AT BEDTIME 06/16 - 03/01 Yoan Rizo valsartan-hydrochloro thiazide 320-25 mg tablet completed Take 1 tablet by mouth once daily 05/07 - 12/20 Dilan Orlandovanessa valsartan-hydrochloro thiazide 320-25 mg tablet completed Take 1 tablet by mouth once a day Take 1 tablet by mouth once daily 05/06 - 05/07 Jolanta Jacobson valsartan-hydrochloro thiazide 320-25 mg tablet completed Take 1 tablet by mouth once daily 07/04 - 05/06 Kendy Meyer Eliquis 5 mg tablet active Take 1 table t by mouth twice daily 03/20 Chay Valentin MD metoprolol succinate 100 mg tablet extended release 24 hr completed Take 1/2 tablet by mouth once daily 03/20 - 12/19 Dilan Horner montelukast 10 mg tablet active Dilan Horner Spiriva Respimat 2.5 mcg/actuation mist active Chay Valentin MD furosemide 20 mg tablet completed TAKE 1 TABLET BY MOUTH ONCE DAILY - 03/11 Chay Valentin MD pantoprazole 40 mg tablet,delayed release (DR/EC) active TAKE 1 TABLET BY MOUTH ONCE DAILY Chay Valentin MD methotrexate sodium 2.5 mg tablet completed - 03/11 Chay Valentin MD gabapentin 100 mg capsule completed - 03/11 Chay Valentin MD albuterol sulfate 90 mcg/actuation HFA aerosol inhaler active INHALE 2 PUFFS BY MOUTH EVERY 6 HOURS NEEDED Chay Valentin MD folic acid 1 mg tablet active Chay Valentin MD terbinafine HCl 250 mg tablet active Chay Valentin MD Symbicort 160-4.5 mcg/actuation HFA aerosol inhaler active 1 puff twice a day 03/05 Isidra Vital AMLODIPINE BESYLATE 5 MG ORAL TABLET completed one tab by mouth daily 05/22 - 07/07 Chay Valentin MD valsartan-hydrochloro thiazide 320-25 mg tablet completed 1 tablet by mouth once a day 05/17 - 8/04 Kiki Sorrento alprazolam 0.25 mg tablet active 1 tablet by mouth three times a day as needed 05/15 Chay Valentin MD NORVASC 5 MG ORAL TABLET completed ONE TAB. DAILY 05/15 - 05/17 Chay Valentin MD HYDROCHLOROTHIAZIDE 12.5 MG ORAL TABLET completed one tablet daily 05/15 - 05/17 Chay Valentin MD pravastatin 40 mg tablet active 1 tablet by mouth once a day 05/15 Chay Valentin MD metoprolol succinate 100 mg tablet extended release 24 hr completed Take 1 tablet by mouth once a day 01/06 - 03/20 Maddie Carvajal LISINOPRIL 40 MG ORAL TABLET completed ONE TAB. DAILY 05/15 - 05/17 Chay Valentin MD Eliquis 5 mg tablet completed Take 1 table t by mouth twice a day - 03/20 Keli Claudio SOCIAL HISTORY Date Observation Value Provider smoking, year quit 1999 [facility] smoking history, tot al pack/year 365 [facility], tot [facility] pack/day 1 Dilan jenny cigarette use yes [facility] Former smoker Dilan Perry i smoking, year quit 1999 Dilan [facility] smoking history, tot al pack/year 365 Dilan Perryi smoking history, tot al pack/day 1 Dilanashley Perry cigarette use yes [facility] status Former smoker Dilan Perry i smoking, year quit 1999 Humaira jiménez smoking history, tot al pack/year 365 Humaira Kumar smoking history, tot al pack/day 1 Humaira Kumar cigarette use yes Humaira Kumar smoking status Former smoker Humaira Kumar smoking, year quit 1999 Isidra Cardenas eniselaer smoking history, tot al pack/year 365 Isidra Ajer smoking history, tot al pack/day 1 Isidra Ajer cigarette use yes Isidra Lindseynf elder smoking status Former smoker Isidra marcher social history reviewed E&M revi ewed - no changes required Dilan Horner social history E&M S moking History: Ana Lilia mccarty is a former smoker. Dilan Horner cigarette use yes Sara reid smoking status Former smoker Sara armendariz social history reviewed E&M revi ewed - no changes required Dilan Horner social history E&M S moking History: Ana Lilia mccarty has never smoked. Dilan Horner smoking status Never smoker Vielka Juan social history reviewed E&M revi ewed - no changes required Chay Valentin MD smoking status Never smoker Jazmin John social history reviewed E&M revi ewed - no changes required Chay Valentin MD social history E&M S moking History: Ana Lilia mccarty is a former smoker. Dilan Horner smoking, year quit 1999 Kiki Sorrento smoking history, tot al pack/year 365 Kiki Herberth smoking history, tot al pack/day 1 Kiki Herberth cigarette use yes Kiki Herberth smoking status Former smoker Kiki Ot is social history reviewed E&M revi ewed - no changes required Chay Valentin MD social history E&M S moking History: Ana Lilia mccarty is a former smoker. Dilan Horner smoking status Former smoker Radha Loomis social history reviewed E&M revi ewed - no changes required Chay Valentin MD social history E&M S moking History: Ana Lilia mccarty is a former smoker. Chay Valentin MD social history reviewed E&M revi ewed - no changes required Robby Fish smoking, year quit 1999 Isidra Cardenas orianaer smoking history, tot al pack/day 1 Isidra Gilbertjohanaer cigarette use yes Isidra Gilbert elder smoking status Former smoker Isidra baigelder social history E&M S moking History: Ana Lilia mccarty is a former smoker. Chay Valentin MD social history reviewed E&M revi ewed - no changes required Cahy Valentin MD smoking history, tot al pack/year 365 Tons Patten smoking history, tot al pack/day 1 Tonsha Patten smoking, year quit 1999 Tonsha Mo ss cigarette use yes [facility] smoking status Former smoker [facility] FUNCTIONAL STATUS Date Observation Value Provider HRA, CV Assess/Plan, Angina (inactive) Management Plan continue current therapy Dilan Leezavanessa HRA, CV Assess/Plan, Angina (inactive) Management Plan continue current therapy Dilan Leezai HRA, CV Assess/Plan, Angina (inactive) Management Plan continue current therapy Dilan Reedmedzai HRA, CV Assess/Plan, Angina (inactive) Management Plan continue current therapy Dilan Reedmedzai HRA, CV Assess/Plan, Angina (inactive) Management Plan continue current therapy Dilan Reedmedzai FAMILY HISTORY Family Member Condition Father Family History of Co ngestive Heart Failure: Father Family History of Co jomar Cancer: Mother Family History of Hy pertension: Mother Family History of Di abetes: INSURANCE PROVIDERS Payer name Policy type / Coverage type Emigrant [place] red libertarian ID AETNA MEDICARE JULIANNA PPO Medicare [id number] ADVANCE DIRECTIVES Name Date DISCUSSED - NO DECISION MADE TREATMENT PLAN Date Name Performer [id number],S, Dilan Ahmedza i [id number],S, Dilan Ahmedza i [id number],S, Dilan Ahmedza i [id number],S, Dilan Ahmedza i [id number],S, Dilan Ahmedza i [id number],S, Dilan Ahmedza i [id number],S, Dilan Ahmedza i [id number],S, Dilan Ahmedza i [id number],S, Dilan Ahmedza i [id number],S, Dilan Ahmedza i [id number],S, Dilan Ahmedza i [id number],S, Dilan Ahmedza i [id number],S, Dilan Ahmedza i [id number],S, Dilan Ahmedza i [id number],S, Dilan Ahmedza i [id number],S, Dilan Ahmedza i [id number],S, Dilan Ahmedza i [id number],S, Dilan Ahmedza i [id number],S, Dilan Ahmedza i [id number],S, Dilan Ahmedza i [id number],S, Dilan Ahmedza i [id number],S, Dilan Ahmedza i [id number],S, Dilan Ahmedza i [id number],S, Dilan medza i [id number],B, Dilan Ahmedza i [id number],S, Dilan medza i [id number],S, Dilan medza i [id number],S, Dilan medza i [id number],S, Dilan medza i [id number],S, Dilan medza i [id number],S, Dilan medza i [id number],S, Dilan medza i [id number],S, Dilan medza i [id number],S, Dilan medza i [id number],S, Dilan medza i [id number],S, Dilan medza i [id number],S, Dilan medza i [id number],S, Dilan medza i Cardiology Chay Valentin MD Cardiology: H is updated medication list for this problem includes: Plavix 75 Mg Tablet (Clopidogrel) ..... Take 1 tablet by mouth once a day Metoprolol Succinate 25 Mg Tablet Extended Release 24 Hr (Metoprolol succinate) ..... Take 1 tablet by mouth once daily Chay Valentin MD Cardiology: H is updated medication list for this problem includes: Metoprolol Succinate 25 Mg Tablet Extended Release 24 Hr (Metoprolol succinate) ..... Take 1 tablet by mouth once daily Furosemide 40 Mg Tablet (Furosemide) Valsartan-hydrochlorothiazide 320-25 Mg Tablet (Valsartan-hydrochlorothiazide) ..... Take 1 tablet by mouth once daily Amlodipine 10 Mg Tablet (Amlodipine) ..... Take 1 tablet by mouth every day Chay Valentin MD Cardiology: H is updated medication list for this problem includes: Plavix 75 Mg Tablet (Clopidogrel) ..... Take 1 tablet by mouth once a day Metoprolol Succinate 25 Mg Tablet Extended Release 24 Hr (Metoprolol succinate) ..... Take 1 tablet by mouth once daily Amlodipine 10 Mg Tablet (Amlodipine) ..... Take 1 tablet by mouth every day Orders: [facility] ([id number]) Chay Valentin MD Cardiology:This visi t has been a part of the consistent, comprehensive, and ongoing management of the chronic medical condition(s) listed above for the patient. Orders: [facility] ([id number]) His updated medication list for this problem includes: Plavix 75 Mg Tablet (Clopidogrel) ..... Take 1 tablet by mouth once a day Metoprolol Succinate 25 Mg Tablet Extended Release 24 Hr (Metoprolol succinate) ..... Take 1 tablet by mouth once daily Amlodipine 10 Mg Tablet (Amlodipine) ..... Take 1 tablet by mouth every day Chay Valentin MD Cardiology Dilan Horner Cardiology Gene De La Garza MD Cardiology Gene De La Garza MD Cardiology Gene De La Garza MD Cardiology Gene De La Garza MD Telehealth: His updated medication list for this problem includes: Metoprolol Succinate 25 Mg Tablet Extended Release 24 Hr (Metoprolol succinate) ..... Take 1 tablet by mouth once daily Dilan Horner Telehealth: O rders: L T HRT CATH (84403) B ASIC METABOLIC PANEL W/EGFR (38966) C BC (INCLUDES DIFF/PLT) (6399) L IPID PANEL (7600) P ROTHROMBIN TIME WITH INR (8847) The following medications were removed from the medication list: Metoprolol Succinate 100 Mg Tablet Extended Release 24 Hr (Metoprolol succinate) ..... Take 1/2 tablet by mouth once daily Metoprolol Succinate 100 Mg Tablet Extended Release 24 Hr (Metoprolol succinate) ..... Take 1 tablet by mouth once daily His updated medication list for this problem includes: Metoprolol Succinate 25 Mg Tablet Extended Release 24 Hr (Metoprolol succinate) ..... Take 1 tablet by mouth once daily Furosemide 40 Mg Tablet (Furosemide) Valsartan-hydrochlorothiazide 320-25 Mg Tablet (Valsartan-hydrochlorothiazide) ..... Take 1 tablet by mouth once daily Amlodipine 10 Mg Tablet (Amlodipine) ..... Take 1 tablet by mouth every day Dilanashley Perry Telehealth: O rders: L T HRT CATH (00919) B ASIC METABOLIC PANEL W/EGFR (83236) C BC (INCLUDES DIFF/PLT) (6399) L IPID PANEL (7600) P ROTHROMBIN TIME WITH INR (8847) Dilan jenny Telehealth: His updated medication list for this problem includes: Metoprolol Succinate 25 Mg Tablet Extended Release 24 Hr (Metoprolol succinate) ..... Take 1 tablet by mouth once daily Furosemide 40 Mg Tablet (Furosemide) Valsartan-hydrochlorothiazide 320-25 Mg Tablet (Valsartan-hydrochlorothiazide) ..... Take 1 tablet by mouth once daily Amlodipine 10 Mg Tablet (Amlodipine) ..... Take 1 tablet by mouth every day Dilan Orlando Telehealth: O rders: L T HRT CATH (29235) B ASIC METABOLIC PANEL W/EGFR (21714) C BC (INCLUDES DIFF/PLT) (6399) L IPID PANEL (7600) P ROTHROMBIN TIME WITH INR (8847) The following medications were removed from the medication list: Metoprolol Succinate 100 Mg Tablet Extended Release 24 Hr (Metoprolol succinate) ..... Take 1/2 tablet by mouth once daily Metoprolol Succinate 100 Mg Tablet Extended Release 24 Hr (Metoprolol succinate) ..... Take 1 tablet by mouth once daily His updated medication list for this problem includes: Metoprolol Succinate 25 Mg Tablet Extended Release 24 Hr (Metoprolol succinate) ..... Take 1 tablet by mouth once daily Amlodipine 10 Mg Tablet (Amlodipine) ..... Take 1 tablet by mouth every day Dilan Horner Telehealth: O rders: L T HRT CATH (38297) B ASIC METABOLIC PANEL W/EGFR (39365) C BC (INCLUDES DIFF/PLT) (6399) L IPID PANEL (7600) P ROTHROMBIN TIME WITH INR (8847) His updated medication list for this problem includes: Metoprolol Succinate 25 Mg Tablet Extended Release 24 Hr (Metoprolol succinate) ..... Take 1 tablet by mouth once daily Amlodipine 10 Mg Tablet (Amlodipine) ..... Take 1 tablet by mouth every day [facility] Horner [facility]This visi t has been a part of the consistent, comprehensive, and ongoing management of the chronic medical condition(s) listed above for the patient. Orders: M onitor - Telemetry (Mobile Cardiac) ([id number]) His updated medication list for this problem includes: Metoprolol Succinate 100 Mg Tablet Extended Release 24 Hr (Metoprolol succinate) ..... Take 1/2 tablet by mouth once daily Chay Valentin MD Cardiology: O rders: S tress Cardiac PET-CT (95791) m yocardial blood flow (PET) (90093) His updated medication list for this problem includes: Metoprolol Succinate 100 Mg Tablet Extended Release 24 Hr (Metoprolol succinate) ..... Take 1/2 tablet by mouth once daily Amlodipine 10 Mg Tablet (Amlodipine) ..... Take 1 tablet by mouth every day Dilanashley Horner Cardiology: O rders: S tress Cardiac PET-CT (82710) m yocardial blood flow (PET) (89318) The following medications were removed from the medication list: Furosemide 20 Mg Tablet (Furosemide) ..... Take 1 tablet by mouth once daily His updated medication list for this problem includes: Metoprolol Succinate 100 Mg Tablet Extended Release 24 Hr (Metoprolol succinate) ..... Take 1/2 tablet by mouth once daily Furosemide 40 Mg Tablet (Furosemide) Valsartan-hydrochlorothiazide 320-25 Mg Tablet (Valsartan-hydrochlorothiazide) ..... Take 1 tablet by mouth once daily Amlodipine 10 Mg Tablet (Amlodipine) ..... Take 1 tablet by mouth every day [facility] Card[facility]: H is updated medication list for this problem includes: Metoprolol Succinate 100 Mg Tablet Extended Release 24 Hr (Metoprolol succinate) ..... Take 1/2 tablet by mouth once daily [facility] Cardiology: O rders: S victor m Cardiac PET-CT (64564) m yocardial blood flow (PET) (71753) His updated medication list for this problem includes: Metoprolol Succinate 100 Mg Tablet Extended Release 24 Hr (Metoprolol succinate) ..... Take 1/2 tablet by mouth once daily Amlodipine 10 Mg Tablet (Amlodipine) ..... Take 1 tablet by mouth every day [facility]: O rders: M onitor - Telemetry (Mobile Cardiac) ([id number]) His updated medication list for this problem includes: Metoprolol Succinate 100 Mg Tablet Extended Release 24 Hr (Metoprolol succinate) ..... Take 1/2 tablet by mouth once daily [facility]: B P today: 150/88 P rior BP: 165/98 (12/15/2023) Labs Reviewed: L DL: 56 (11/17/2020) The following medications were removed from the medication list: Furosemide 20 Mg Tablet (Furosemide) ..... Take 1 tablet by mouth once daily His updated medication list for this problem includes: Metoprolol Succinate 100 Mg Tablet Extended Release 24 Hr (Metoprolol succinate) ..... Take 1/2 tablet by mouth once daily Furosemide 40 Mg Tablet (Furosemide) Valsartan-hydrochlorothiazide 320-25 Mg Tablet (Valsartan-hydrochlorothiazide) ..... Take 1 tablet by mouth once daily Amlodipine 10 Mg Tablet (Amlodipine) ..... Take 1 tablet by mouth every day [facility]: H is updated medication list for this problem includes: Metoprolol Succinate 100 Mg Tablet Extended Release 24 Hr (Metoprolol succinate) ..... Take 1 tablet by mouth once daily [facility]: H is updated medication list for this problem includes: Amlodipine 5 Mg Tablet (Amlodipine) ..... Take 1 tablet by mouth every night Furosemide 20 Mg Tablet (Furosemide) ..... Take 1 tablet by mouth once daily Metoprolol Succinate 100 Mg Tablet Extended Release 24 Hr (Metoprolol succinate) ..... Take 1 tablet by mouth once daily Valsartan-hydrochlorothiazide 320-25 Mg Tablet (Valsartan-hydrochlorothiazide) ..... Take 1 tablet by mouth once daily [facility]: H is updated medication list for this problem includes: Amlodipine 5 Mg Tablet (Amlodipine) ..... Take 1 tablet by mouth every night Metoprolol Succinate 100 Mg Tablet Extended Release 24 Hr (Metoprolol succinate) ..... Take 1 tablet by mouth once daily [facility]: H is updated medication list for this problem includes: Pravastatin 40 Mg Tablet (Pravastatin) ..... 1 tablet by mouth once a day [facility]:Will add Amlodipine 5 mg for better HTN control BP today: 165/98 P rior BP: 146/86 (06/16/2023) Labs Reviewed: L DL: 56 (11/17/2020) [facility]: H is updated medication list for this problem includes: Pravastatin 40 Mg Tablet (Pravastatin) ..... 1 tablet by mouth once a day [facility]:will check LORENZO to rul e out any PAD [facility] Cardiology:will repeat AAA duple x [facility] Cardiology [facility] Cardiology [facility] Cardiology [facility] Ahmed[facility] Cardiology [facility] Ahmedzai Cardiology [facility] Ahmedzai Cardiology [facility]an Ahmedzai Cardiology Dilan Ahmedzai Cardiology Dilan [facility] Cardiology [facility]an [facility] Cardiology [facility] Cardiology [facility]an [facility] Cardiology Dilan [facility] Cardiology [facility]an [facility] Cardiology Dilan Ahmedz[facility] Cardiology Dilan [facility] Cardiology [facility]an [facility] Cardiology [facility]an [facility] Cardiology [facility]an [facility] Cardiology [facility]an [facility] Cardiology [facility]an [facility] Cardiology [facility] Cardiology [facility] Cardiology [facility] Cardiology [facility] Cardiology [facility] Cardiology [facility] Cardiology [facility] Cardiology [facility]an [facility] Cardiology [facility]an [facility] Cardiology Dilan Ahmedzai Cardiology Dilan Ahmedzai Cardiology Dilan Ahmedzai Cardiology Dilan Ahmedzai Cardiology Dilan Ahmedzai Cardiology Dilan Ahmedzai Cardiology Dilan Ahmedzai Cardiology Dil[facility] Horner Cardiology Dilan Horner Cardiology Follow up :Encouraged weight loss. Chay Valentin MD Cardiology Follow up :LDL well c ontrolled. Chay Valentin MD Cardiology Follow up :Well contr olled at home. Chay Valentin MD Cardiology Follow up :Will check home sleep study to rule out sleep apnea. Chay Valentin MD TeleHealth Chay Valentin MD TeleHealth Chay Valentin MD TeleHealth Chay Valentin MD TeleHealth Chay Valentin MD Cardiology Chay Valentin MD Cardiology Chay Valentin MD Cardiology Chay Valentin MD Cardiology Chay Valentin MD Date Name Cardiac Rehab Arterial Duplex to r /o pseudoanuerysm PROTHROMBIN TIME WIT H INR LIPID PANEL CBC (INCLUDES DIFF/P LT) BASIC METABOLIC PANE L W/EGFR Monitor - Telemetry (Mobile Cardiac) myocardial blood bishop w (PET) Stress Cardiac PET-C T Aorta Duplex Ultraso und Arterial Duplex Bi-L ower EX Stress Regadenoson Venous Doppler Bilat eral LE - Reflux Complete Echo Sleep Study Home Complete Echo Holter Monitor 24 Hr HISTORY OF PROCEDURES Procedure Date Procedure Name Provider Procedure Notes S tatus Complex e/m visit ad d on Chay Valentin MD completed Complex e/m visit ad d on Chay Valentin MD [10/04/2024 - teresa] APPROVED [ 10/04/2024 - teresa] APPROVED [ 10/04/2024 - teresa] APPROVED [ 09/27/2024 - davonte] completed SHAWNA Valentin MD completed SHAWNA Valentin MD completed SHAWNA Valentin MD completed
--- OUTSIDE RECORDS SUMMARY | 2024-12-24 04:50 | XMS_ITS | Referral Summary ---
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 Name Role Phone Odin Alex MD Primary Care Provider Gene De La Garza MD Unavailable [phone] Encounters Date Type Department Care Team Description 11/25/2024 7:55 AM BIOINFORMATICS SOFTWARE ENGINEER - 11/26/2024 1:45 PM [facility] Hospital Encounter [address] [address] Gene De La Garza MD CAD (coronary artery disease) Discharge Disposition: Discharge to home or self care 11/25/2024 10:00 AM BIOINFORMATICS SOFTWARE ENGINEER - 11/25/2024 12:00 PM [facility] Surgery [facility] Cardiac Catheterization Lab [address] [place] [id number] Gene De La Garza MD PCI SONIA MAJOR CORONARY C9600 - [id number] 11/18/2024 Orders Only [facility] Cardiac Catheterization Lab [address] [place] [id number] Gene De La Garza MD CAD (coronary artery disease) (Primary Dx) from Last 3 Months Allergies No known active allergies Medications pantoprazole DR (PROTONIX) 40 mg EC tablet take 1 tablet (40MG) by oral route every day 0 2 Active pravastatin (PRAVACHOL) 40 mg tablet take 1 tablet by oral route every day at bedtime 0 0 3 Active ALPRAZolam (XANAX) 0.25 mg tablet Take 1 tablet (0.25 mg total) by mouth nightly as needed for sleep or anxiety 9 Active metoprolol XL (TOPROL-XL) 100 mg 24 hr tablet Take 25 mg by mouth daily 1 Active montelukast (SINGULAIR) 10 mg tablet Take 1 tablet (10 mg total) by mouth daily 1 Active valsartan-hydr ochlorothiazid e (DIOVAN-HCT) 320-25 mg per tablet Take 1 tablet by mouth daily 1 Active acetaminophen (TYLENOL) 325 mg tablet Take 2 tablets (650 mg total) by mouth every 6 (six) hours as needed for pain Active diphenhydrAMIN E (BENADRYL) 25 mg capsule Take 1 tablet/capsule (25 mg total) by mouth every 6 (six) hours as needed for itching Active melatonin 10 mg tablet Take 1 tablet (10 mg total) by mouth nightly Active multivitamin capsule Take 1 capsule by mouth daily Active furosemide (LASIX) 20 mg tablet Take 2 tablets (40 mg total) by mouth daily 3 Active Breztri Aerosphere 160-9-4.8 mcg/actuation HFA aerosol inhaler Inhale 2 puffs 2 (two) times a day 3 Active imiquimod (ALDARA) 5 % cream Apply 1 packet topically nightly as needed (rash) 3 Active naltrexone 1.5 mg capsule Take 1.5 mg by mouth daily 4 Active gabapentin (NEURONTIN) 100 mg capsule Take 1 capsule (100 mg total) by mouth 3 (three) times a day 4 Active loratadine (CLARITIN) 10 mg tablet Take 1 tablet (10 mg total) by mouth daily Active fluticasone propionate (FLONASE) 50 mcg/actuation nasal spray Administer 1 spray into each nostril daily Active escitalopram (LEXAPRO) 10 mg tablet Take 1 tablet (10 mg total) by mouth daily Active UNKNOWN TO PATIENT Apply 1 Application topically daily as needed (rash) Compound lotion used for joint pain at tips of fingers for neuropathy. Active albuterol HFA (PROVENTIL HFA,VENTOLIN HFA,PROAIR HFA) 90 mcg/actuation inhaler Inhale 2 puffs every 6 (six) hours as needed 4 Active traZODone (DESYREL) 100 mg tablet Take 1 tablet (100 mg total) by mouth nightly 4 Active aspirin 81 mg chewable tablet Take 1 tablet (81 mg total) by mouth daily 30 tablet 11 4 11/26/20 25 Active clopidogreL (PLAVIX) 75 mg tablet Take 1 tablet (75 mg total) by mouth daily 30 tablet 11 4 11/26/20 25 Active Eliquis 5 mg tablet Take 1 tablet by mouth twice daily 180 tablet 0 11/26/20 24 Discontin ued(Stop Taking at Discharge ) valsartan (DIOVAN) 320 mg tablet Take 1 tablet (320 mg total) by mouth daily 11/26/20 24 Discontin ued(Stop Taking at Discharge ) naltrexone 1.5 mg capsule Take 1.5 mg by mouth daily 4 11/26/20 24 Discontin ued(Stop Taking at Discharge ) Active Problems Problem Noted Date Diagnosed Date Status post cardiac catheterization 11/25/2024 CAD (coronary artery disease) 11/18/2024 Hyperlipidemia 06/22/2019 Assessment & Plan (06/22/2019 1:15 PM CDT): On chronic lipid lowering therapy with good control. No changes made. 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 As long as they remain on this medication, an ECG will be performed every 6 months for monitoring. Assessment & Plan (12/24/2017 4:09 PM BIOINFORMATICS SOFTWARE ENGINEER): 12-lead ECG today does not demonstrate any changes that would prohibit continued use of sotalol. We will continue the patient on the same dose and schedule. As long as the patient continues on this medication, an ECG should be performed at least every 6 months to monitor for toxicity. Assessment & Plan (09/29/2017 2:04 PM CDT): 12-lead ECG today does not demonstrate any changes that would prohibit continued use of sotalol. We will continue the patient on the same dose and schedule. As long as the patient continues on this medication, an ECG should be performed at least every 6 months to monitor for toxicity. Assessment & Plan (07/27/2017 2:59 PM CDT): 12-lead ECG today does not demonstrate any changes that would prohibit continued use of sotalol. We will continue the patient on the same dose and schedule. As long as the patient continues on this medication, an ECG should be performed at least every 6 months to monitor for toxicity. Assessment & Plan (06/28/2017 2:50 PM CDT): 12-lead ECG today does not demonstrate any changes that would prohibit continued use of sotalol. We will continue the patient on the same dose and schedule. As long as the patient continues on this medication, an ECG should be performed at least every 6 months to monitor for toxicity. Anticoagulation management encounter 06/28/2017 Assessment & Plan (02/09/2018 9:53 AM CDT): He remains anticoagulated on Eliquis 5 mg twice daily.He has a [id number] score of 2, therefore it is recommended that he remain anticoagulated for thromboprophylaxis. Assessment & Plan (12/24/2017 4:10 PM BIOINFORMATICS SOFTWARE ENGINEER): The patient has a [id number]-[id number] score of 2 (annualized risk of stroke 2.2 %). I have therefore recommended that he remain anticoagulated for thromboprophylaxis. The patient will follow-up with me in 3-4 months for an office visit and twelve- lead ECG. Assessment & Plan (09/29/2017 2:05 PM CDT): The patient has a [id number] score of 2 (annualized risk of stroke 2.2 %). I have therefore recommended that he remain anticoagulated for thromboprophylaxis. He will follow-up with me 1 month after cardioversion. Assessment & Plan (07/27/2017 2:59 PM CDT): The patient has a [id number]-VLEt score of 2 (annualized risk of stroke 2%). I have therefore recommended that he remain anticoagulated for thromboprophylaxis. The patient will follow up with me in 6 months, unless he has recurrence. Assessment & Plan (06/28/2017 2:51 PM CDT): The patient has a [id number] score of 2 (annualized risk of stroke 2.2 %). I have therefore recommended that he remain anticoagulated for thromboprophylaxis. Permanent atrial fibrillation ([facility]) 07/24/20 14 Overview (03/07/2017): Atrial fibrillation Assessment & Plan (06/22/2019 1:16 PM CDT): Rate controlled and anticoagulated. He is asymptomatic. Assessment & Plan (06/29/2018 7:59 PM CDT): Recurrent atrial fibrillation, now asymptomatic and hemodynamically well tolerated. He is anticoagulated. It may be time to accept atrial fibrillation as his chronic rhythm if he is tolerating it well. Will forward this note to Dr. Dixon. Assessment & Plan (02/09/2018 9:55 AM CDT): The patient is status post ablation for his persistent atrial fibrillation. He has experienced atypical atrial flutter on multiple occasions. He has for the most part maintaining sinus rhythm with sotalol at this time although he has intermittent episodes of atrial arrhythmia. The patient would like to continue on his antiarrhythmic drug therapy at this time. Recently his has been recovering from extensive spine surgery. Options for management have been discussed with the patient and he understands the repeat ablation is an option when he is ready. At this time he will continue on his sotalol. He can follow up in 6 months for an office visit and 12 lead EKG. Assessment & Plan (12/24/2017 4:09 PM BIOINFORMATICS SOFTWARE ENGINEER): The patient is status post ablation for persistent atrial fibrillation. He has experienced recurrent atypical atrial flutter on multiple occasions. He is presently maintaining sinus rhythm with sotalol. The patient would like to forestall repeat ablation until his has had a chance to recover better from her extensive spine surgery. We will attempt to keep the patient in sinus rhythm with sotalol until such time as he is available for ablation. Assessment & Plan (09/29/2017 2:04 PM CDT): The patient has recurrent post ablation atrial flutter. We discussed options for management, and the patient is in favor of undergoing repeat catheter ablation. However, his recently had extensive cervical disc surgery, and he would like to wait until she has recovered more. He would like to undergo cardioversion to sinus rhythm, with ongoing therapy with sotalol, with the goal of maintaining sinus rhythm until he is willing to schedule ablation. My office will make the appropriate arrangements. Assessment & Plan (07/27/2017 2:57 PM CDT): The patient is status post ablation for atrial fibrillation. After he recently had recurrence, he underwent cardioversion on sotalol. He is presently in sinus rhythm. As he has failed sotalol therapy in the past, I have recommended that the patient consider repeat ablation. For now, he would like to wait and possibly defer the procedure for several months. He will continue on the current medications in the meantime. Assessment & Plan (06/28/2017 2:50 PM CDT): The patient has a history of persistent atrial fibrillation/atypical flutter. He is status post ablation. Presently, the patient is back in atrial fibrillation. We discussed options for management, and the patient would like to consider cardioversion back to sinus rhythm. We also discussed repeat ablation, and the patient would like to proceed in the near future. We discussed the rationale for atrial fibrillation ablation, including the steps involved in ablation. I detailed the risks of the procedure, including vascular injury/hematoma, myocardial injury/perforation, stroke, myocardial infarction, pulmonary vein stenosis, thermal esophageal injury, and . I estimated a 70% chance of freedom from long-term atrial arrhythmia, and the patient understands that occasionally a second procedure is necessary. We will make arrangements after the patient is back in sinus rhythm. Assessment & Plan (06/13/2017 7:06 AM CDT): EKG today shows an irregularly irregular rhythm, which I think is likely atrial flutter as there are small relatively slow flutter waves noted in V1. On the EKG, his heart rate is 99 but when I examined him it was faster. He is symptomatic of this. He is anticoagulated with Eliquis. I recommended that he follow up with Dr. Dixon for reconsideration of ablation. Hypertension 07/24/2014 Overview (03/07/2017): Hypertension Assessment & Plan (06/22/2019 1:16 PM CDT): Blood pressure is adequately controlled on current regimen. No change was made. Assessment & Plan (06/29/2018 7:59 PM CDT): Blood pressure is adequately controlled on current regimen. No change was made. Assessment & Plan (02/09/2018 9:53 AM CDT): Risk factor for stroke. Remains anticoagulated. Assessment & Plan (06/13/2017 7:07 AM CDT): Blood pressure is adequately controlled on current regimen. No change was made. Immunizations Name Administration Dates Next Due Influenza, Quadrivalent, Hig h Dose, Preservative Free, Intrr 08/30/2021 Influenza, Quadrivalent, Spl it, Intramuscular 10/20/2015 Influenza, Quadrivalent, Spl it, Preservative Free, Intramuscular 10/29/2016 Influenza, Trivalent, High D ose, Split, Preservative Free, Intramuscular 12/07/2019,09/25/2018,09/09/2017 Influenza, Trivalent, IM (MDV) 10/21/2014,2012 Influenza, Unspecified 11/07/2020 Pneumococcal Conjugate PCV 13 01/03/2015 Social History Tobacco Use Types Packs/Day Years Used Date Smoking Tobacco: Former Cigarettes Q uit: 01/2001 Smokeless Tobacco: Never Tobacco Cessation:Counseling Given: Not Answered Comments:Smoking History Packs/day: 20 Packs Alcohol Use Standard Drinks/Week Comments No 0 (1 standard drink = 0.6 oz pur e alcohol) AUDIT-C Answer Date Recorded Q1: How often do you have a drink containing alc ohol? Never 11/25/2024 Q2: How many drinks containi ng alcohol do you have on a typical day when you are drinking? 1 or 2 11/25/2024 Q3: How often do you have six or more drinks on one occasion? Never 11/25/2024 Personal Safety Answer Date Recorded Have you ever been in or are you currently in a harmful physical or emotional relationship or is someone making you feel afraid or unsafe? Denies 11/25/2024 Sex and Gender Information Value Date Recorded Sex Assigned at Not on file Legal Sex Male 10:59 AM BIOINFORMATICS SOFTWARE ENGINEER Gender Identity Male 12/28/2021 10:54 PM BIOINFORMATICS SOFTWARE ENGINEER Sexual Orientation Straight 12/28/2021 10 :54 PM BIOINFORMATICS SOFTWARE ENGINEER Last Filed Vital Signs Vital Sign Reading Time Taken Comments Blood Pressure 149/82 11/26/2024 12:09 PM BIOINFORMATICS SOFTWARE ENGINEER Pulse 75 11/26/2024 12:09 PM BIOINFORMATICS SOFTWARE ENGINEER Temperature 36.7 ??C (98 ??F) 11/26/2024 12:09 PM BIOINFORMATICS SOFTWARE ENGINEER Respiratory Rate 20 11/26/2024 12:09 PM BIOINFORMATICS SOFTWARE ENGINEER Oxygen Saturation 97% 11/26/2024 12:09 PM BIOINFORMATICS SOFTWARE ENGINEER Inhaled Oxygen Concentration - - Weight 115.7 kg (255 lb) 11/25/2024 12:14 PM BIOINFORMATICS SOFTWARE ENGINEER Height 182.9 cm (6') 11/25/2024 12:14 PM BIOINFORMATICS SOFTWARE ENGINEER Body Mass Index 34.58 11/25/2024 12:14 PM BIOINFORMATICS SOFTWARE ENGINEER Plan of Treatment Not on file Goals Goal Patient Goal Type Associated Problems Recent Progress Patient-Stated? Author CCM Chronic Pain Care Plan Chronic Care Management Diana Barba RN Note: Problem: Chronic Pain Goals: 1. Minimize further functional decline 2. Maximize quality of life 3. Control pain Strategies: - Activity/exercise program recommendation - Conservative stepwise pain medicine strategy with multi-disciplinary approach - Recommend healthy lifestyle strategies and compensatory methods as needed Reduce the likelihood of falling Lifestyle No Bruna, Diana A., RN Note: Below are four things you can do to prevent falls: Begin an exercise program to improve your leg strength & balance Ask your doctor or pharmacist to review your medicines Get annual eye check-ups & update your eyeglasses Make your home safer by: Removing clutter & tripping hazards Putting railings on all stairs & adding grab bars in the bathroom Having good lighting, especially on stairs Contact your local community or senior [place] for information on exercise, fall prevention programs, or options for improving home safety. Medical Devices Implanted Type Area Secondary Teacher Device Identifier Shelf Expiration Date Model / Serial / Lot Appsindep Stent Coronary Drug Eluting Rapid Exchange Synergy Xd [id number] [place] [employer] [id number] - [id number] Implanted:Qty: 1 on 11/25/2024 by Gene De La Garza MD at [facility] Appsindep 05/05/2026 [id number] / / [id number] Procedures Procedure Name Priority Date/Time Associated Diagnosis Comments EGFR Routine 11/26/2024 4:08 AM BIOINFORMATICS SOFTWARE ENGINEER DIFFERENTIAL AUTO Routine 11/26/2024 4:0 8 AM BIOINFORMATICS SOFTWARE ENGINEER CBC WITH AUTO DIFFERENTIAL Routine 11/26/2024 4:08 AM BIOINFORMATICS SOFTWARE ENGINEER BASIC METABOLIC PANEL Routine 11/26/2024 4:08 AM BIOINFORMATICS SOFTWARE ENGINEER CORONARY OCT, 1ST VESSEL Routine 11/25/2024 11:36 AM BIOINFORMATICS SOFTWARE ENGINEER CAD (coronary artery disease) VASCULAR ACCESS US GUIDANCE Routine 11/25/2024 11:36 AM BIOINFORMATICS SOFTWARE ENGINEER CAD (coronary artery disease) SONIA MAJOR CORONARY Routine 11/25/2024 11 :36 AM BIOINFORMATICS SOFTWARE ENGINEER CAD (coronary artery disease) POCT ACTIVATED CLOTTING TIME, HIGH RANGE Routine 11/25/2024 11:19 AM BIOINFORMATICS SOFTWARE ENGINEER MODERATE SEDATION FIRST 15MIN 5+ YEAR [address] 11/25/2024 10:13 AM BIOINFORMATICS SOFTWARE ENGINEER CAD (coronary artery disease) EGFR Routine 11/25/2024 9:01 AM BIOINFORMATICS SOFTWARE ENGINEER DIFFERENTIAL AUTO Routine 11/25/2024 9:0 1 AM BIOINFORMATICS SOFTWARE ENGINEER COMPREHENSIVE METABOLIC PANEL Routine 11/25/2024 9:01 AM BIOINFORMATICS SOFTWARE ENGINEER CBC WITH AUTO DIFFERENTIAL Routine 11/25/2024 9:01 AM BIOINFORMATICS SOFTWARE ENGINEER CTA ABDOMEN PELVIS W WO CONTRAST Schedule Routine, Read Routine (OP Routine) 10/06/2023 1:35 PM BIOINFORMATICS SOFTWARE ENGINEER Dissection of aorta, unspecified portion of aorta (HCC) from Last 3 Months or Most Recently Relevant to Health Maintenance Results * (ABNORMAL) eGFR (11/26/2024 4:08 AM BIOINFORMATICS SOFTWARE ENGINEER) eGFR 51(L) >=60 mL/min/1. 73 m2 Comment: Interpretive Data Reference Interval Normal ?>/= 90 mL/min/1.73m2 Mildly decreased* ? 60 - 89 mL/min/1.73m2 Mildly to moderately decreased ?45 - 59 mL/min/1.73m2 Moderately to severely decreased ??30 - 44 mL/min/1.73m2 Severely decreased ?15 - 29 mL/min/1.73m2 Kidney Failure ?< 15 ??mL/min/1.73m2 *Relative to young adult level Estimated glomerular filtration rate is determined by the 2020 CKD-EPI equation recommended by the National Kidney Foundation (A Unifying Approach to GFR Estimation: Recommendations of the NKF-ASK Task Force on Reassessing the Inclusion of Race in Diagnosing Kidney Disease, JASN 2020). The CKD-EPI equation should not be used for patients with unstable renal function and has not been validated in children and those over 70. Current interpretive data was last reviewed 2021. Blood 11/26/2024 4:08 AM BIOINFORMATICS SOFTWARE ENGINEER 11/26/2024 5:06 AM BIOINFORMATICS SOFTWARE ENGINEER us Gene De La Garza MD LAB BLOOD ORDERABLES Final Resu lt [facility] [id number] Department [place] [address] * Differential, auto (11/26/2024 4:08 AM BIOINFORMATICS SOFTWARE ENGINEER) Neutrophil abs 6.0 1.5 - 6.5 K/cumm Imm gran abs 0.0 0.0 - 0.1 K/cumm [facility] Lymphocyte abs 1.9 0.8 - 3.3 K/cumm [facility] Monocyte abs 0.6 0.2 - 0.8 K/cumm [facility] Eosinophil abs 0.2 0.0 - 0.5 K/cumm [facility] Basophil abs 0.1 0.0 - 0.1 K/cumm [facility] Neutrophil pct 68.4 % [facility] Comment: Interpretive Data Percent cell count reference ranges are not reported, since discordance with absolute values may lead to misinterpretation of CBC data. Current Interpretive Data was last revised on 2018. Imm gran pct 0.5 % [facility] Comment: Interpretive Data Percent cell count reference ranges are not reported, since discordance with absolute values may lead to misinterpretation of CBC data. Current Interpretive Data was last revised on 2018. Lymphocyte pct 21.4 % [facility] Comment: Interpretive Data Percent cell count reference ranges are not reported, since discordance with absolute values may lead to misinterpretation of CBC data. Current Interpretive Data was last revised on 2018. Monocyte pct 6.9 % [facility] Comment: Interpretive Data Percent cell count reference ranges are not reported, since discordance with absolute values may lead to misinterpretation of CBC data. Current Interpretive Data was last revised on 2018. Eosinophil pct 1.8 % [facility] Comment: Interpretive Data Percent cell count reference ranges are not reported, since discordance with absolute values may lead to misinterpretation of CBC data. Current Interpretive Data was last revised on 2018. Basophil pct 1.0 % [facility] Comment: Interpretive Data Percent cell count reference ranges are not reported, since discordance with absolute values may lead to misinterpretation of CBC data. Current Interpretive Data was last revised on 2018. Blood 11/26/2024 4:08 AM BIOINFORMATICS SOFTWARE ENGINEER 11/26/2024 5:03 AM BIOINFORMATICS SOFTWARE ENGINEER Gene De La Garza MD LAB BLOOD ORDERABLES Final Resu lt Performing Organization Address City/[facility]/ZIP Co de Phone Number LEONID ARANA [address] [place] [address] * (ABNORMAL) CBC with auto differential (11/26/2024 4:08 AM BIOINFORMATICS SOFTWARE ENGINEER) WBC 8.8 3.8 - 9.9 K/cumm Hgb 14.7 13.0 - 17.5 g/dL [facility] Hct 46.4 38.9 - 50.3 % [facility] Plt 184 150 - 400 K/cumm [facility] MPV 9.6 9.1 - 12.3 fL [facility] RBC 4.74 4.30 - 5.80 M/cumm [facility] MCV 97.9(H) 81.3 - 96.4 fL [facility] MCH 31.0 27.1 - 33.3 pg [facility] MCHC 31.7(L) 32.3 - 35.7 g/dL [facility] RDW CV 15.1(H) 11.1 - 14.9 % [facility] RDW SD 55.0(H) 35.7 - 48.1 fL [facility] NRBC abs 0.00 0.00 - 0.01 K/cumm [facility] Blood 11/26/2024 4:08 AM BIOINFORMATICS SOFTWARE ENGINEER 11/26/2024 5:03 AM BIOINFORMATICS SOFTWARE ENGINEER Gene De La Garza MD LAB BLOOD ORDERABLES Final Resu lt LEONID ARANA [address] Department [employer] [place], [place] [id number] * (ABNORMAL) Basic metabolic panel (11/26/2024 4:08 AM BIOINFORMATICS SOFTWARE ENGINEER) Sodium 137 135 - 145 mmol/L Potassium, pl 4.5 3.3 - 4.9 mmol/L [facility] Chloride 101 97 - 110 mmol/L [facility] CH CO2 24 22 - 32 mmol/L [facility] CH Anion gap 12 2 - 15 mmol/L [facility] BUN 37(H) 6 - 25 mg/dL [facility] Creatinine 1.42(H) 0.80 - 1.30 mg/dL [facility] Glucose 110 70 - 199 mg/dL [facility] Comment: Interpretive Data Fasting glucose >/= 126 mg/dl is diagnostic for diabetes. ?? Fasting is defined as no caloric intake for at least 8 hours. Fasting glucose between 100 mg/dl to 125 mg/dl is diagnostic of prediabetes. In a patient with classic symptoms of hyperglycemia or hyperglycemic crisis, a random glucose >/= 200 mg/dl is diagnostic for diabetes. In the absence of unequivocal hyperglycemia, results should be confirmed by repeat testing. The classification and Diagnosis of Diabetes Diabetes Care 202; 46: S19-S40. Current interpretive data was last revised 2022. Calcium 9.5 8.5 - 10.3 mg/dL [facility] Blood 11/26/2024 4:08 AM BIOINFORMATICS SOFTWARE ENGINEER 11/26/2024 5:06 AM BIOINFORMATICS SOFTWARE ENGINEER us Gene De La Garza MD LAB BLOOD ORDERABLES Final Resu lt [facility] [address] Department [place] [address] * SONIA MAJOR CORONARY, VASCULAR ACCESS US GUIDANCE, CORONARY OCT, 1ST VESSEL (11/25/2024 11:36 AM BIOINFORMATICS SOFTWARE ENGINEER) Anatomical Region Laterality Modality X-Ray Angiograph y Narrative 11/25/2024 11:54 AM BIOINFORMATICS SOFTWARE ENGINEER Table formatting from the original result was not included. PCI SONIA MAJOR CORONARY C9600 - 87430, MODERATE SEDATION FIRST 15MIN 5+ YEAR 15824, ULTRASOUND GUIDANCE FOR VASCULAR ACCESS S&I 92822, IVUS/OCT CORS OR GRAFTS, FIRST VESSEL (+) [id number] ??Brief Op Note Attending Resource Room Teacher: Gene De La Garza MD Primary: Gene De La Garza MD CV Documenter: Ilene Chaves RN CV Scrub: Carolyn Cole RT; Layo Cerrato CV Lead Vulcanizing Operator: Halley Pro; Sweetie Lee RN Date of Procedure: 11/25/2024 Specimens: No specimen collected in procedure Preoperative Diagnosis: Pre-op Diagnosis ?? * CAD (coronary artery disease) [I25.10] ?? Postoperative Diagnosis: Post-op Diagnosis ?? * CAD (coronary artery disease) [I25.10] Name of Procedure: Procedure(s): PCI SONIA MAJOR CORONARY C9600 51792 MODERATE SEDATION FIRST 15MIN 5+ YEAR 72733 ULTRASOUND GUIDANCE FOR VASCULAR ACCESS S&I 74415 IVUS/OCT CORS OR GRAFTS, FIRST VESSEL (+) [id number] Implants: Implant Name Type Inv. Item Serial No. Secondary Teacher Lot No. [id number] No. Used Action EMBI Stent Coronary Drug Eluting Rapid Exchange Synergy Xd [id number] [place] Chromium [id number] - [id number] ??IMAGINATE - [employer]ENT[employer] Money Mover Stent Coronary Drug Eluting Rapid Exchange Synergy Xd [id number] [place] [employer] [id number] ??[place] [employer] AdVolume [id number] N/A 1 Implanted Cardiac catheterization procedure report summary Clinical history: ??79-year-old gentleman with angina event stress test which was demonstrating anterior ischemia underwent cardiac catheterization by Dr. Chay Valentin, it demonstrated severe LAD lesion in proximal segment involving the bifurcation of diagonal and large septal leather tooler. ??Patient has been scheduled for PCI with hi. PCI INDICATIONS Stable Angina PCI STATUS [x] ??Elective ??[] ??Urgent ?? [] ??Emergency ??[] ??Salvage CARDIOVASCULAR INSTABILITY [] ??Persistent Ischemic Symptoms (Chest Pain, STEMI) [] ??Hemodynamic Instability [] ??Ventricular Arrhythmias [] ??Acute Heart Failure [] ??Cardiogenic Shock [] ??Salvage or Refractory Cardiogenic Shock CARDIAC ARREST [] ??NO ??[] ??YES AND RESPONSIVE [] ??YES AND UNRESPONSIVE FRAILTY [] ??Moderately Frail ?? [] ??Severely Frail ? [] ??Very Severely Frail ?? [] Terminally Ill OTHER PATIENT CHARACTERISTICS [] ??At Least Moderate Aortic Stenosis [] ??Surgical Turn Down CONGESTIVE HEART FAILURE (NYHA Classification) [] ??I ?[] ??II ??[] ??III ??[] ??IV ?? STRESS TEST: EXTENT OF ISCHEMIA [] ??Low Risk (<1% annual risk of or VT) [] ??Intermediate Risk (1-3% annual risk of or VT [x] ??High Risk (>3% annual risk of or VT) 5. Stress-induced perfusion abnormalities encumbering >=10% myocardium or stress segmental scores indicating multiple vascular territories with abnormalities LESION CHARACTERISTICS (HIGH RISK Type C LESIONS) [] ??Diffuse Length (> 2 cm) [] ??Excessive Tortuosity of Proximal Segment [] ??Extremely Angulated Segments > 90 degrees [x] ??Bifurcation Lesion (with the inability to protect major side branches) [] ??Degenerated Vein Grafts with Friable Segments [] ??Chronic Total Occlusion (> 3 mos) and/or bridging collaterals OTHER HIGH RISK CHARACTERISTICS [] ??In-Stent Thrombosis [] ??Heavily Calciified [x] ??High Risk Coronary Segment (LEFT MAIN OR PROX LAD) Procedure: Intravascular ultrasound of LAD Drug-eluting stent placement in the LAD Vascular Access: Right Radial approach Catheters: ?? Intervention: ??XB 3.5 guide offered moderate support Moderate sedation: Moderate sedation was administered by me, with continuous monitoring of the patient by the physician/qualified nurse who was present throughout the duration of the procedure. For preservice and post-service documentation please refer to procedure log. Intraservice time for moderate sedation start 1042 end 1136 2 mg Versed and 75 mcg fentanyl Oysterman: Gene De La Garza MD Procedure summary: Informed consent of the patient was obtained. ??Risks discussed include but are not limited to stroke heart attack, , emergency bypass surgery, vascular injury, pain at site of sheath insertion, vascular surgery, embolic event with loss of limb and loss of digits, dye allergy, dye reaction, dialysis, at a rate of 12/999 for the angiographic portion of the procedure and 1/100 for the interventional part of the procedure. All questions were answered to their satisfaction. Time out Performed preprocedure as per protocol. Immediate re-assessment performed. Patient was given conscious sedation. Under full aseptic conditions, local anesthesia with 2 cc Xylocaine 1% given. ??Right Radial artery was used for access. Ultrasound evaluation done for possible access site, patent vessel observed, real-time visualization of vascular needle entry done during access, and images were stored on the machine as permanent record. 6F slender sheath was inserted. ??XB 3 5 guide was engaged in standard fashion. ??Blue wire was used to cross the LAD lesion and black wire was placed into the diagonal branch. ??Pre-dilated the lesion with 2.5 balloon and subsequently intravascular ultrasound done demonstrated reference vessel of 3.5 mm distal to bifurcation, loli did not involve any significant ostial disease in the diagonal and therefore we felt major protection is not needed for this branch and definitely does not need bifurcation PCI. ??Subsequently we went with 3.5 NC balloon and pre-dilated the lesion. ??We advanced wolverine cutting balloon however it would not cross. ??We advanced GuideLiner and still cutting balloon would not cross and therefore we went back with 3.5 NC balloon and further pre-dilated and advanced the GuideLiner beyond the lesion and then unsheathed at 3.5X16 synergy stent. ??Postdilated with 3.5 NC balloon and proximal segment was post dilated with 4 mm balloon. ??Good angiographic result LINDEN 3 flow without any significant residual stenosis without any plaque shift into diagonal or septal leather tooler. ??Patient tolerated the procedure well symptomatically. ??No postprocedure complication, estimated blood loss 5 cc. ??Catheter was removed and TR band was applied achieving hemostasis. Impression: ??Successful PCI of 80% proximal LAD stenosis involving diagonal and large septal leather tooler trifurcation with 3.5X16 synergy SONIA post dilated proximally with 4.0 NC balloon. Recommendations: ASA 81 mg for life long. High Intensity statin therapy. Aggressive risk factor modification. ??Brilinta 90 mg b.i.d.. ??Patient is on apixaban at home. ??Can consider resuming it after 1 month of DAPT. Gene De La Garza MD Date: 11/25/2024 Time: 11:49 AM us Gene De La Garza MD CV CARDIAC CATH PROCEDURES Blanche l Result * (ABNORMAL) POC Activated Clotting Time, High Range (11/25/2024 11:19 AM BIOINFORMATICS SOFTWARE ENGINEER) ACT 239(H) 87 - 138 sec Blood 11/25/2024 11:1 9 AM BIOINFORMATICS SOFTWARE ENGINEER 11/25/2024 11:19 AM BIOINFORMATICS SOFTWARE ENGINEER us Gene De La Garza MD LAB BLOOD ORDERABLES Final Resu lt Performing Organization Address City/State/[facility] ms Phone Number LEONID [phone] Department [place] [address] * (ABNORMAL) eGFR (11/25/2024 9:01 AM BIOINFORMATICS SOFTWARE ENGINEER) eGFR 56(L) >=60 mL/min/1. 73 m2 Comment: Interpretive Data Reference Interval Normal ?>/= 90 mL/min/1.73m2 Mildly decreased* ? 60 - 89 mL/min/1.73m2 Mildly to moderately decreased ?45 - 59 mL/min/1.73m2 Moderately to severely decreased ??30 - 44 mL/min/1.73m2 Severely decreased ?15 - 29 mL/min/1.73m2 Kidney Failure ?< 15 ??mL/min/1.73m2 *Relative to young adult level Estimated glomerular filtration rate is determined by the 2020 CKD-EPI equation recommended by the National Kidney Foundation (A Unifying Approach to GFR Estimation: Recommendations of the NKF-ASK Task Force on Reassessing the Inclusion of Race in Diagnosing Kidney Disease, JASN 2020). The CKD-EPI equation should not be used for patients with unstable renal function and has not been validated in children and those over 70. Current interpretive data was last reviewed 2021. Blood 11/25/2024 9:01 AM BIOINFORMATICS SOFTWARE ENGINEER 11/25/2024 9:05 AM BIOINFORMATICS SOFTWARE ENGINEER us Gene De La Garza MD LAB BLOOD ORDERABLES Final Resu lt [facility] [id number] Department [place] [address] * Differential, auto (11/25/2024 9:01 AM BIOINFORMATICS SOFTWARE ENGINEER) Neutrophil abs 6.4 1.5 - 6.5 K/cumm Imm gran abs 0.1 0.0 - 0.1 K/cumm [facility] Lymphocyte abs 1.8 0.8 - 3.3 K/cumm [facility] Monocyte abs 0.6 0.2 - 0.8 K/cumm [facility] Eosinophil abs 0.1 0.0 - 0.5 K/cumm [facility] Basophil abs 0.1 0.0 - 0.1 K/cumm [facility] Neutrophil pct 70.9 % [facility] Comment: Interpretive Data Percent cell count reference ranges are not reported, since discordance with absolute values may lead to misinterpretation of CBC data. Current Interpretive Data was last revised on 2018. Imm gran pct 0.7 % [facility] Comment: Interpretive Data Percent cell count reference ranges are not reported, since discordance with absolute values may lead to misinterpretation of CBC data. Current Interpretive Data was last revised on 2018. Lymphocyte pct 19.3 % [facility] Comment: Interpretive Data Percent cell count reference ranges are not reported, since discordance with absolute values may lead to misinterpretation of CBC data. Current Interpretive Data was last revised on 2018. Monocyte pct 6.7 % [facility] Comment: Interpretive Data Percent cell count reference ranges are not reported, since discordance with absolute values may lead to misinterpretation of CBC data. Current Interpretive Data was last revised on 2018. Eosinophil pct 1.5 % [facility] Comment: Interpretive Data Percent cell count reference ranges are not reported, since discordance with absolute values may lead to misinterpretation of CBC data. Current Interpretive Data was last revised on 2018. Basophil pct 0.9 % [facility] Comment: Interpretive Data Percent cell count reference ranges are not reported, since discordance with absolute values may lead to misinterpretation of CBC data. Current Interpretive Data was last revised on 2018. Blood 11/25/2024 9:01 AM BIOINFORMATICS SOFTWARE ENGINEER 11/25/2024 9:01 AM BIOINFORMATICS SOFTWARE ENGINEER Gene De La Garza MD LAB BLOOD ORDERABLES Final Resu lt [facility] [address] [place] [address] * (ABNORMAL) CBC with auto differential (11/25/2024 9:01 AM BIOINFORMATICS SOFTWARE ENGINEER) WBC 9.1 3.8 - 9.9 K/cumm Hgb 14.1 13.0 - 17.5 g/dL [facility] CH Hct 43.3 38.9 - 50.3 % [facility] CH Plt 190 150 - 400 K/cumm [facility] CH MPV 9.0(L) 9.1 - 12.3 fL [facility] CH RBC 4.55 4.30 - 5.80 M/cumm [facility] CH MCV 95.2 81.3 - 96.4 fL [facility] CH MCH 31.0 27.1 - 33.3 pg [facility] CH MCHC 32.6 32.3 - 35.7 g/dL [facility] CH RDW CV 14.9 11.1 - 14.9 % [facility] CH RDW SD 52.1(H) 35.7 - 48.1 fL [facility] CH NRBC abs 0.00 0.00 - 0.01 K/cumm [facility] CH Blood 11/25/2024 9:01 AM BIOINFORMATICS SOFTWARE ENGINEER 11/25/2024 9:01 AM BIOINFORMATICS SOFTWARE ENGINEER Gene De La Garza MD LAB BLOOD ORDERABLES Final Resu lt LEONID [address] Department [place] [address] * (ABNORMAL) Comprehensive metabolic panel (11/25/2024 9:01 AM BIOINFORMATICS SOFTWARE ENGINEER) Sodium 141 135 - 145 mmol/L Potassium, pl 4.0 3.3 - 4.9 mmol/L [facility] CH Chloride 104 97 - 110 mmol/L [facility] CH CO2 25 22 - 32 mmol/L [facility] CH Anion gap 12 2 - 15 mmol/L [facility] CH BUN 37(H) 6 - 25 mg/dL [facility] CH Creatinine 1.31(H) 0.80 - 1.30 mg/dL [facility] CH Glucose 115 70 - 199 mg/dL [facility] CH Comment: Interpretive Data Fasting glucose >/= 126 mg/dl is diagnostic for diabetes. ?? Fasting is defined as no caloric intake for at least 8 hours. Fasting glucose between 100 mg/dl to 125 mg/dl is diagnostic of prediabetes. In a patient with classic symptoms of hyperglycemia or hyperglycemic crisis, a random glucose >/= 200 mg/dl is diagnostic for diabetes. In the absence of unequivocal hyperglycemia, results should be confirmed by repeat testing. The classification and Diagnosis of Diabetes Diabetes Care 202; 46: S19-S40. Current interpretive data was last revised 2022. Calcium 9.4 8.5 - 10.3 mg/dL C[facility] CH Bilirubin, total 0.4 0.1 - 1.2 mg/dL [facility] CH Protein, pl 6.4(L) 6.5 - 8.5 g/dL [facility] CH Albumin 3.9 3.5 - 5.0 g/dL [facility] CH Alk phos 58 40 - 130 Units/L [facility] CH ALT 22 7 - 55 Units/L [facility] CH AST 22 10 - 50 Units/L [facility] CH Blood 11/25/2024 9:01 AM BIOINFORMATICS SOFTWARE ENGINEER 11/25/2024 9:01 AM BIOINFORMATICS SOFTWARE ENGINEER us Gene De La Garza MD LAB BLOOD ORDERABLES Final Resu lt LEONID [address] Department of Laboratories [place], [place] [id number] * CTA Abdomen Pelvis (10/06/2023 1:35 PM BIOINFORMATICS SOFTWARE ENGINEER) Anatomical Region Laterality Modality Body N/A Computed Tomogra phy 10/06/2023 2:15 PM BIOINFORMATICS SOFTWARE ENGINEER Impressions 10/07/2023 1:05 PM BIOINFORMATICS SOFTWARE ENGINEER IMPRESSION: 1. ??Stable small infrarenal penetrating atherosclerotic ulcers. ??No abdominal aortic aneurysm or evidence of instability. 2. Morphologic features of hepatic fibrosis. Dictated by: Melonie Rodriguez M.D. The radiology attending physician has personally reviewed this study, and had reviewed and/or edited this written report and agrees with it. Electronically signed by: Cuauhtemoc Otero M.D. Narrative 10/07/2023 1:05 PM BIOINFORMATICS SOFTWARE ENGINEER EXAMINATION: ??CT ANGIOGRAPHY OF THE ABDOMEN AND PELVIS WITH AND WITHOUT CONTRAST HISTORY: Dissection TECHNIQUE: CT angiography of the abdomen and pelvis was performed prior to and following the uneventful intravenous administration of 125 ml Optiray-350 using the post-endoluminal stent graft protocol. Vascular 3D images were generated on a dedicated workstation and also reviewed. COMPARISON: 08/24/2022 FINDINGS: VASCULAR FINDINGS: Multiple stable small infrarenal penetrating atherosclerotic ulcers, the largest of which is from the 9:00 to 11 o'clock position at the level of the take off of the inferior mesenteric artery (series 5, image 198). ?? Infrarenal abdominal aorta measures up to 28 x 24 mm. NON-VASCULAR FINDINGS: Evaluation of the lung bases shows no pleural effusion. ??Heart size within normal limits. ??No pericardial effusion. Unchanged hepatic surface nodularity. ??No suspicious hepatic lesion. No biliary duct dilatation. ??Gallbladder is decompressed. ??Spleen, and adrenal glands are normal. ??Fatty atrophy of the pancreas. Indeterminate hypoattenuating left renal lesions most likely represent cysts. ??Large right renal cyst. ??No hydronephrosis or renal stone. ??Normal bladder. ??Prostatic calcifications are noted. ??Small large bowel are normal in caliber without wall thickening or obstruction. ??Normal appendix. ??No abdominal or pelvic lymphadenopathy. ??No free fluid or free intra-abdominal air. ??No suspicious osseous lesion. ??Multilevel degenerative changes are present in the spine. Procedure Note Cuauhtemoc Otero MD - 10/07/2023 EXAMINATION: CT ANGIOGRAPHY OF THE ABDOMEN AND PELVIS WITH AND WITHOUT CONTRAST HISTORY: Dissection TECHNIQUE: CT angiography of the abdomen and pelvis was performed prior to and following the uneventful intravenous administration of 125 ml Optiray-350 using the post-endoluminal stent graft protocol. Vascular 3D images were generated on a dedicated workstation and also reviewed. COMPARISON: 08/24/2022 FINDINGS: VASCULAR FINDINGS: Multiple stable small infrarenal penetrating atherosclerotic ulcers, the largest of which is from the 9:00 to 11 o'clock position at the level of the take off of the inferior mesenteric artery (series 5, image 198). Infrarenal abdominal aorta measures up to 28 x 24 mm. NON-VASCULAR FINDINGS: Evaluation of the lung bases shows no pleural effusion. Heart size within normal limits. No pericardial effusion. Unchanged hepatic surface nodularity. No suspicious hepatic lesion. No biliary duct dilatation. Gallbladder is decompressed. Spleen, and adrenal glands are normal. Fatty atrophy of the pancreas. Indeterminate hypoattenuating left renal lesions most likely represent cysts. Large right renal cyst. No hydronephrosis or renal stone. Normal bladder. Prostatic calcifications are noted. Small large bowel are normal in caliber without wall thickening or obstruction. Normal appendix. No abdominal or pelvic lymphadenopathy. No free fluid or free intra-abdominal air. No suspicious osseous lesion. Multilevel degenerative changes are present in the spine. IMPRESSION: IMPRESSION: 1. Stable small infrarenal penetrating atherosclerotic ulcers. No abdominal aortic aneurysm or evidence of instability. 2. Morphologic features of hepatic fibrosis. Dictated by: Melonie Rodriguez M.D. The radiology attending physician has personally reviewed this study, and had reviewed and/or edited this written report and agrees with it. Electronically signed by: Cuauhtemoc Otero M.D. Sagar David MD IMG CT PROCEDURES Final R esult from Last 3 Months or Most Recently Relevant to Health Maintenance Insurance [employer] MEDICARE [facility] MEDICARE [facility] MEDICARE Advance Directives For more information, please contact: [phone] * Full Code (Latest Code Status on File) Date Activated Date Inactivated Comments 11/25/2024 11:59 AM 11/26/2024 5:49 PM Care Teams Automotive Vehicle Inspector Relationship Specialty Start Date End Date Odin Alex MD PCP - General 02/28/17 Gene De La Garza MD [address] [place] [address] Consulting Physician Cardiology 11/26/24
--- OUTSIDE RECORDS SUMMARY | 2024-12-24 04:50 | XMS_ITS | Encounter Summary ---
Author Organization [facility] Address [address] [place] [id number] Care Team Providers Care Delivery Crew Member Name Role Phone Odin Alex MD Primary Care Provider Gene De La Garza MD Unavailable [phone] Encounter Details Date Type Department Care Team (Late st Contact Info) Description 03/27/2017 Orders Only Arrhythmia Center Provider, MD Shanell [address] [place], [place] [id number] Social History Tobacco Use Types Packs/Day Years Used Date Smoking Tobacco: Former Cigarettes Q uit: 12/01/2000 Comments:Smoking History Pac ks/day: 20 Packs Alcohol Use Standard Drinks/Week Comments No 0 (1 standard drink = 0.6 oz pur e alcohol) Sex and Gender Information Value Date Recorded Sex Assigned at Not on file Legal 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 Historical Provider [facility] CARDIAC SERVICES VERENICE JONES Final Result documented in this encounter Visit Diagnoses Not on filedocumented in this encounter Care Teams Delivery Crew Member Relationship Specialty Start Date End Date Odin Alex MD PCP - General 02/28/17 Gene De La Garza MD [address] [place] [address] Consulting Physician Cardiology 11/26/24 documented as of this encounter
--- OUTSIDE RECORDS SUMMARY | 2024-12-24 04:50 | XMS_ITS | Clinical Summary ---
Author Organization [facility] Address [address] [place] [address] Care Team Providers Care Computer Networking Instructor Name Role Phone Odin Alex MD Primary Care Provider Gene De La Garza MD Unavailable [phone] Allergies No known active allergies Medications pantoprazole [...] mg total) by mouth daily 3 Active Leydi Aerosphere 160-9-4.8 mcg/actuation HFA aerosol inhaler Inhale [...] mg total) by mouth daily 30 tablet 4 11/26/20 25 Active Eliquis 5 mg [...] control. No changes made. 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 As long as they remain on this medication, an ECG will be performed every 6 months for monitoring. Assessment & Plan (12/24/2017 4:09 PM CD MIXER HELPER): 12-lead ECG today does not demonstrate any [...] Eliquis 5 mg twice daily.He has a ATQ1RM8-YVDh score of 2, therefore it is recommended that he remain anticoagulated for thromboprophylaxis. Assessment & Plan (12/24/2017 4:10 PM CD MIXER HELPER): The patient has a RDQ9HD3-KHZz score of 2 (annualized risk of stroke 2.2 %). I have therefore recommended that he remain anticoagulated for thromboprophylaxis. The patient will follow-up with me in 3-4 months for an office visit and twelve- lead ECG. Assessment & Plan (09/29/2017 2:05 PM CDT): The patient has a BYI3IF8-UHYr score of 2 (annualized risk of stroke 2.2 %). I have therefore recommended that he remain anticoagulated for thromboprophylaxis. He will follow-up with me 1 month after cardioversion. Assessment & Plan (07/27/2017 2:59 PM CDT): The patient has a AMI5CJ6-XHWj score of 2 (annualized risk of stroke 2%). I have therefore recommended that he remain anticoagulated for thromboprophylaxis. The patient will follow up with me in 6 months, unless he has recurrence. Assessment & Plan (06/28/2017 2:51 PM CDT): The patient has a OPX9TX7-BWMm score of 2 (annualized risk of stroke 2.2 %). I have therefore recommended that he remain anticoagulated for thromboprophylaxis. Permanent atrial fibrillation (CMS/HCC) 07/24/20 14 Overview (03/07/2017): Atrial fibrillation Assessment [...] EKG. Assessment & Plan (12/24/2017 4:09 PM CD MIXER HELPER): The patient is status post ablation for [...] on current regimen. No change was made. Encounters Date Type Department Care Team Description 11/25/2024 10:00 AM CD MIXER HELPER - 11/25/2024 12:00 PM CD MIXER HELPER Surgery [facility] Cardiac Catheterization Lab [address] [place] [id number] Gene De La Garza MD PCI SONIA MAJOR CORONARY C9600 - [id number] 11/25/2024 7:55 AM CD MIXER HELPER - 11/26/2024 1:45 PM CD MIXER HELPER Hospital Encounter [address] [address] Gene De La Garza MD CAD (coronary artery disease) Discharge Disposition: Discharge to home or self care 11/18/2024 Orders Only [facility] Cardiac Catheterization Lab [address] [place] [id number] Gene De La Garza MD CAD (coronary artery disease) (Primary Dx) from Last 3 Months Immunizations Name Administration Dates Next Due Influenza, Quadrivalent, Hig h Dose, Preservative Free, Intrr 08/30/2021 Influenza, Quadrivalent, Spl it, Intramuscular 10/20/2015 Influenza, Quadrivalent, Spl it, Preservative Free, Intramuscular 10/29/2016 Influenza, Trivalent, High D ose, Split, Preservative Free, Intramuscular 12/07/2019,09/25/2018,09/09/2017 Influenza, Trivalent, IM (MDV) 10/21/2014,2012 Influenza, Unspecified 11/07/2020 Pneumococcal Conjugate PCV 13 01/03/2015 Surgical History Surgery Date Site/Laterality Comments HIATAL HERNIA REPAIR Hiatal Hernia Repair ABLATION ablasion CATARACT EXTRACTION Right Cataract Surgery Medical History Medical History Date Comments Hx Other Medical Arrhythmias Hypertension Hypertension Hx Other Medical Pilonidal Cyst Hx Other Medical Hiatal Hernia Hx Other Medical Esophageal refl ux Hyperlipidemia Atrial fibrillation (CMS/HCC) (HCC) Cancer (CMS/HCC) (HCC) COPD (chronic obstructive pu lmonary disease) (HCC) Osteoarthritis Low back pain Chronic pain disorder CHF (congestive heart failur e) (CMS/HCC) (HCC) Lung disease GERD (gastroesophageal reflux disease) Stroke (HCC) multiple mini st rokes unknown age - no residual Skin cancer right forearm CAD (coronary artery disease) Sleep apnea Family History Medical History Relation Name Comments Arrhythmia Brother 3 Arrhythmias; Cardiomyopathy Brother 4 Cardiomyopath y; Cause of : Cardiomyopathy Other Daughter 2 Diabetes Type I ; Heart disease Father heart disease; Lung cancer Father Cancer, lung; C ause of : Cancer, lung Heart attack Mother Myocardial Infa rction; Cause of : Myocardial Infarction Hypertension Mother Hypertension; Arrhythmia Sister 1 1 Arrhythmias; Arrhythmia Sister 2 2 Arrhythmias; Arrhythmia Sister 5 Arrhythmias; Breast cancer Sister 6 Cancer, breast ; Relation Name Status Comments Brother 1 Alive Brother 2 (Age 51) Brother 3 Brother 4 Daughter 1 Alive Daughter 2 Father Alive Mother Alive Sister 1 1 Alive Sister 2 2 Alive Sister 3 Alive Sister 4 Alive Sister 5 Sister 6 Social History Tobacco Use Types Packs/Day Years [...] on file Legal Sex Male 10:59 AM CD MIXER HELPER Gender Identity Male 12/28/2021 10:54 PM CD MIXER HELPER Sexual Orientation Straight 12/28/2021 10 :54 PM CD MIXER HELPER Obstetrics History Last Filed Vital Signs Vital Sign Reading Time Taken Comments Blood Pressure 149/82 11/26/2024 12:09 PM CD MIXER HELPER Pulse 75 11/26/2024 12:09 PM CD MIXER HELPER Temperature 36.7 ??C (98 ??F) 11/26/2024 12:09 PM CD MIXER HELPER Respiratory Rate 20 11/26/2024 12:09 PM CD MIXER HELPER Oxygen Saturation 97% 11/26/2024 12:09 PM CD MIXER HELPER Inhaled Oxygen Concentration - - Weight 115.7 kg (255 lb) 11/25/2024 12:14 PM CD MIXER HELPER Height 182.9 cm (6') 11/25/2024 12:14 PM CD MIXER HELPER Body Mass Index 34.58 11/25/2024 12:14 PM CD MIXER HELPER Plan of Treatment Health Maintenance Due Date Last Done Comments Depression Screening 1945 Hepatitis C Screening 1945 DTaP/Tdap/Td Vaccine (1 - Tdap) 1957 Hepatitis B Screening 1964 Zoster Vaccine (1 of 2) 1996 Well Visit 65+ 2011 Covid-19 Vaccine (5 - 2023-2 5 season) 2024 03/18/2022, 08/30/2021, 02/18/2021, Additional history exists Fall Risk Assessment 11/26/2025 11/26/2024, 11/18/2023, 03/18/2022, Additional history exists Pneumococcal vaccine 65+ Completed 023, 01/03/2015, 09/01/2011 Abdominal Aortic Aneurysm (A AA) Screen Completed 10/06/2023, 08/24/2022 Influenza Vaccine Completed 09/09/2024, , 08/30/2021, Additional history exists Goals Goal Patient Goal Type Associated Problems Recent Progress Patient-Stated? Author CCM Chronic Pain Care Plan Chronic Care Management Diana Barba, RN Note: Problem: Chronic Pain Goals: 1. Minimize further functional decline 2. Maximize quality of life 3. Control pain Strategies: - Activity/exercise program recommendation - Conservative stepwise pain medicine strategy with multi-disciplinary approach - Recommend healthy lifestyle strategies and compensatory methods as needed Reduce the likelihood of falling Lifestyle [facility]y [place] RN Note: Below are four things you [...] on stairs Contact your local community or [facility] for information on exercise, fall prevention programs, or options for improving home safety. Medical Devices Implanted Type Area Radiator Core Tester Device Identifier Shelf Expiration Date Model / Serial / Lot Calixar Stent Coronary Drug Eluting Rapid Exchange Synergy Xd [id number] [place] Chromium [id number] - [id number] Implanted:Qty: 1 on 11/25/2024 by Gene De La Garza MD at [facility] Calixar 05/05/2026 [id number] / / [id number] Procedures Procedure Name Priority Date/Time Associated Diagnosis Comments EGFR Routine 11/26/2024 4:08 AM CD MIXER HELPER DIFFERENTIAL AUTO Routine 11/26/2024 4:0 8 AM CD MIXER HELPER CBC WITH AUTO DIFFERENTIAL Routine 11/26/2024 4:08 AM CD MIXER HELPER BASIC METABOLIC PANEL Routine 11/26/2024 4:08 AM CD MIXER HELPER CORONARY OCT, 1ST VESSEL Routine 11/25/2024 11:36 AM CD MIXER HELPER CAD (coronary artery disease) VASCULAR ACCESS US GUIDANCE Routine 11/25/2024 11:36 AM CD MIXER HELPER CAD (coronary artery disease) SONIA MAJOR CORONARY Routine 11/25/2024 11 :36 AM CD MIXER HELPER CAD (coronary artery disease) POCT ACTIVATED CLOTTING TIME, HIGH RANGE Routine 11/25/2024 11:19 AM CD MIXER HELPER MODERATE SEDATION FIRST 15MIN 5+ YEAR [address]56[address] 11/25/2024 10:13 AM CD MIXER HELPER CAD (coronary artery disease) EGFR Routine 11/25/2024 9:01 AM CD MIXER HELPER DIFFERENTIAL AUTO Routine 11/25/2024 9:0 1 AM CD MIXER HELPER COMPREHENSIVE METABOLIC PANEL Routine 11/25/2024 9:01 AM CD MIXER HELPER CBC WITH AUTO DIFFERENTIAL Routine 11/25/2024 9:01 AM CD MIXER HELPER CTA ABDOMEN PELVIS W WO CONTRAST Schedule Routine, Read Routine (OP Routine) 10/06/2023 1:35 PM CD MIXER HELPER Dissection of aorta, unspecified portion of aorta (HCC) from Last 3 Months or Most Recently Relevant to Health Maintenance Results * (ABNORMAL) eGFR (11/26/2024 4:08 AM CD MIXER HELPER) eGFR 51(L) >=60 mL/min/1. 73 m2 Comment: [...] last reviewed 2021. Blood 11/26/2024 4:08 AM CD MIXER HELPER 11/26/2024 5:06 AM CD MIXER HELPER us Gene De La Garza MD LAB BLOOD ORDERABLES Final Resu lt [facility] [address] Department [place] [address] * Differential, auto (11/26/2024 4:08 AM CD MIXER HELPER) Neutrophil abs 6.0 1.5 - 6.5 K/cumm Imm gran abs 0.0 0.0 - 0.1 K/cumm [facility] Lymphocyte abs 1.9 0.8 - 3.3 K/cumm [facility] Monocyte abs 0.6 0.2 - 0.8 K/cumm [facility] Eosinophil abs 0.2 0.0 - 0.5 K/cumm [facility] Basophil abs 0.1 0.0 - 0.1 K/cumm [facility] Neutrophil pct 68.4 % [facility] Comment: Interpretive Data Percent cell count reference ranges are not reported, since discordance with absolute values may lead to misinterpretation of CBC data. Current Interpretive Data was last revised on 2018. Imm gran pct 0.5 % [facility] Comment: Interpretive Data Percent cell count reference ranges are not reported, since discordance with absolute values may lead to misinterpretation of CBC data. Current Interpretive Data was last revised on 2018. Lymphocyte pct 21.4 % [facility] Comment: Interpretive Data Percent cell count reference ranges are not reported, since discordance with absolute values may lead to misinterpretation of CBC data. Current Interpretive Data was last revised on 2018. Monocyte pct 6.9 % [facility] Comment: Interpretive Data Percent cell count reference ranges are not reported, since discordance with absolute values may lead to misinterpretation of CBC data. Current Interpretive Data was last revised on 2018. Eosinophil pct 1.8 % [facility] Comment: Interpretive Data Percent cell count reference ranges are not reported, since discordance with absolute values may lead to misinterpretation of CBC data. Current Interpretive Data was last revised on 2018. Basophil pct 1.0 % [facility] Comment: Interpretive Data Percent cell count reference ranges are not reported, since discordance with absolute values may lead to misinterpretation of CBC data. Current Interpretive Data was last revised on 2018. Blood 11/26/2024 4:08 AM CD MIXER HELPER 11/26/2024 5:03 AM CD MIXER HELPER Gene De La Garza MD LAB BLOOD ORDERABLES Final Resu lt Performing Organization Address [facility]/ZIP Co de Phone Number LEONID [address] [place] [place] [address] * (ABNORMAL) CBC with auto differential (11/26/2024 4:08 AM CD MIXER HELPER) WBC 8.8 3.8 - 9.9 K/cumm Hgb 14.7 13.0 - 17.5 g/dL [facility] Hct 46.4 38.9 - 50.3 % [facility] Plt 184 150 - 400 K/cumm [facility] MPV 9.6 9.1 - 12.3 fL [facility] RBC 4.74 4.30 - 5.80 M/cumm [facility] MCV 97.9(H) 81.3 - 96.4 fL [facility] MCH 31.0 27.1 - 33.3 pg [facility] MCHC 31.7(L) 32.3 - 35.7 g/dL [facility] CV 15.1(H) 11.1 - 14.9 % [facility] SD 55.0(H) 35.7 - 48.1 fL [facility] NRBC abs 0.00 0.00 - 0.01 K/cumm [facility] Blood 11/26/2024 4:08 AM CD MIXER HELPER 11/26/2024 5:03 AM CD MIXER HELPER Gene De La Garza MD LAB BLOOD ORDERABLES Final Resu lt Performing Organization Address [facility]/ZIP Co de Phone Number LEONID [address] [place] [address] * (ABNORMAL) Basic metabolic panel (11/26/2024 4:08 AM CD MIXER HELPER) Sodium 137 135 - 145 mmol/L Potassium, pl 4.5 3.3 - 4.9 mmol/L [facility] Chloride 101 97 - 110 mmol/L [facility] CO2 24 22 - 32 mmol/L [facility] Anion gap 12 2 - 15 mmol/L [facility] BUN 37(H) 6 - 25 mg/dL [facility] Creatinine 1.42(H) 0.80 - 1.30 mg/dL [facility] Glucose 110 70 - 199 mg/dL [facility] Comment: Interpretive Data Fasting glucose >/= 126 [...] classification and Diagnosis of Diabetes Diabetes Care 2021; 46: S19-S40. Current interpretive data was last revised 2022. Calcium 9.5 8.5 - 10.3 mg/dL [facility] Blood 11/26/2024 4:08 AM CD MIXER HELPER 11/26/2024 5:06 AM CD MIXER HELPER us Gene De La Garza MD LAB BLOOD ORDERABLES Final Resu lt [facility] [address] Department [place] [address] * SONIA MAJOR CORONARY, VASCULAR ACCESS US GUIDANCE, CORONARY OCT, 1ST VESSEL (11/25/2024 11:36 AM CD MIXER HELPER) Anatomical Region Laterality Modality X-Ray Angiograph y Narrative 11/25/2024 11:54 AM CD MIXER HELPER Table formatting from the original result was not included. PCI SONIA MAJOR CORONARY C9600 - 19544, MODERATE SEDATION FIRST 15MIN 5+ YEAR [address]5665, ULTRASOUND GUIDANCE FOR VASCULAR ACCESS S&I 90287, IVUS/OCT CORS OR GRAFTS, FIRST VESSEL (+) [id number] ??Brief Op Note Attending Auto Transmission Technician: Gene De La Garza MD Primary: Gene De La Garza MD CV Documenter: Ilene Chaves RN CV Scrub: Carolyn Cole, ; Layo Cerrato CV Animal Care Assistant: Halley Pro; Sweetie Lee RN Date of Procedure: 11/25/2024 Specimens: No specimen collected in procedure Preoperative Diagnosis: Pre-op Diagnosis ?? * CAD (coronary artery disease) [I25.10] ?? Postoperative Diagnosis: Post-op Diagnosis ?? * CAD (coronary artery disease) [I25.10] Name of Procedure: Procedure(s): PCI SONIA MAJOR CORONARY C9600 - 71364 MODERATE SEDATION FIRST 15MIN 5+ YEAR 54728 ULTRASOUND GUIDANCE FOR VASCULAR ACCESS S&I 38116 IVUS/OCT CORS OR GRAFTS, FIRST VESSEL (+) [id number] Implants: Implant Name Type Inv. Item Serial No. Radiator Core Tester Lot No. LRB No. Used Action VSHORE Stent Coronary Drug Eluting Rapid Exchange Synergy Xd [id number] [place] Chromium [id number] - [id number] ??[employer]amaran [employer] MasteryConnect Stent Coronary Drug Eluting Rapid Exchange Synergy Xd [id number] [place] Chromium [id number] ??[employer] QuantumSphere [id number] N/A 1 Implanted Cardiac catheterization procedure report summary Clinical history: ??79-year-old gentleman with angina event stress test which was demonstrating anterior ischemia underwent cardiac catheterization by Dr. Chay Valentin, it demonstrated severe LAD lesion in proximal segment involving the bifurcation of diagonal and large septal simulation specialist. ??Patient has been scheduled for PCI with [...] ??Low Risk (<1% annual risk of or MA) [] ??Intermediate Risk (1-3% annual risk of or MA [x] ??High Risk (>3% annual risk of or MA) 5. Stress-induced perfusion abnormalities encumbering >=10% myocardium [...] 2 mg Versed and 75 mcg fentanyl Student Finance Advisor: Gene De La Garza MD Procedure summary: [...] any plaque shift into diagonal or septal simulation specialist. ??Patient tolerated the procedure well symptomatically. ??No postprocedure complication, estimated blood loss 5 cc. ??Catheter was removed and TR band was applied achieving hemostasis. Impression: ??Successful PCI of 80% proximal LAD stenosis involving diagonal and large septal simulation specialist trifurcation with 3.5X16 synergy SONIA post dilated [...] Clotting Time, High Range (11/25/2024 11:19 AM CD MIXER HELPER) ACT 239(H) 87 - 138 sec Blood 11/25/2024 11:1 9 AM CD MIXER HELPER 11/25/2024 11:19 AM CD MIXER HELPER us Gene De La Garza MD LAB BLOOD ORDERABLES Final Resu lt Performing Organization Address City/State/ZIP Co wy Phone Number LEONID [address] Department [place] [address] * (ABNORMAL) eGFR (11/25/2024 9:01 AM CD MIXER HELPER) eGFR 56(L) >=60 mL/min/1. 73 m2 Comment: [...] last reviewed 2021. Blood 11/25/2024 9:01 AM CD MIXER HELPER 11/25/2024 9:05 AM CD MIXER HELPER us Gene De La Garza MD LAB BLOOD ORDERABLES Final Resu lt [facility] [address] [place] [address] * Differential, auto (11/25/2024 9:01 AM CD MIXER HELPER) Neutrophil abs 6.4 1.5 - 6.5 K/cumm Imm gran abs 0.1 0.0 - 0.1 K/cumm [facility] Lymphocyte abs 1.8 0.8 - 3.3 K/cumm [facility] Monocyte abs 0.6 0.2 - 0.8 K/cumm [facility] Eosinophil abs 0.1 0.0 - 0.5 K/cumm [facility] Basophil abs 0.1 0.0 - 0.1 K/cumm [facility] Neutrophil pct 70.9 % [facility] Comment: Interpretive [...] revised on 2018. Lymphocyte pct 19.3 % [facility] Comment: Interpretive Data Percent cell count reference [...] revised on 2018. Blood 11/25/2024 9:01 AM CD MIXER HELPER 11/25/2024 9:01 AM CD MIXER HELPER Gene De La Garza MD LAB BLOOD ORDERABLES Final Resu lt Performing Organization Address City/[facility]/ZIP Co de Phone Number LEONID ARANA [address] [place] [place] [address] * (ABNORMAL) CBC with auto differential (11/25/2024 9:01 AM CD MIXER HELPER) WBC 9.1 3.8 - 9.9 K/cumm Hgb [...] K/cumm [facility] Blood 11/25/2024 9:01 AM CD MIXER HELPER 11/25/2024 9:01 AM CD MIXER HELPER us Gene De La Garza MD LAB BLOOD ORDERABLES Final Resu lt Performing Organization Address City/[facility]/ZIP Co de Phone Number LEONID ARANA [address] [place] [address] * (ABNORMAL) Comprehensive metabolic panel (11/25/2024 9:01 AM CD MIXER HELPER) Sodium 141 135 - 145 mmol/L Potassium, [...] Units/L [facility] Blood 11/25/2024 9:01 AM CD MIXER HELPER 11/25/2024 9:01 AM CD MIXER HELPER us Gene De La Garza MD LAB BLOOD ORDERABLES Final Resu lt [facility] [address] Department [place] [address] * CTA Abdomen Pelvis (10/06/2023 1:35 PM CD MIXER HELPER) Anatomical Region Laterality Modality Body N/A Computed Tomogra phy 10/06/2023 2:15 PM CD MIXER HELPER Impressions 10/07/2023 1:05 PM CD MIXER HELPER IMPRESSION: 1. ??Stable small infrarenal penetrating atherosclerotic ulcers. ??No abdominal aortic aneurysm or evidence of instability. 2. Morphologic features of hepatic fibrosis. Dictated by: Melonie Rodriguez M.D. The radiology attending physician has personally reviewed this study, and had reviewed and/or edited this written report and agrees with it. Electronically signed by: Cuauhtemoc Otero M.D. Narrative 10/07/2023 1:05 PM CD MIXER HELPER EXAMINATION: ??CT ANGIOGRAPHY OF THE ABDOMEN AND [...] Relevant to Health Maintenance Insurance [employer] MEDICARE PENDING SALE TO [facility] MEDICARE PENDING SALE TO [facility]ICARE Advance Directives For more information, please contact: [phone] * Full Code (Latest Code Status on File) Date Activated Date Inactivated Comments 11/25/2024 11:59 AM 11/26/2024 5:49 PM Care Teams Computer Networking Instructor Relationship Specialty Start Date End Date Odin Alex MD PCP - General 02/28/17 Gene De La Garza MD [address] [place] [address] Consulting Physician Cardiology 11/26/24
[2024-12-24] MEDS: ACETAMINOPHEN 325 MG TABLET 650 MG PO ×2 (05:13→09:55)
[2024-12-24 05:51] LABS: Basophils Absolute Auto 0.1 K/mm3 (0.0-0.1); Basophils Percent Auto 0.5 % (0.2-1.2); Eosinophils Percent Auto 0.1 % (0-4.4); Hematocrit 35.6 % (42.0-52.0); Hemoglobin 11.4 g/dL (14.0-18.0); Immature Granulocyte Absolute 0.05 K/mm3 (0.00-0.031); Immature Granulocyte Percent A 0.5 % (0-0.5); Lymphocytes Absolute Auto 0.53 K/mm3 (0.9-3.2); Lymphocytes Percent Auto 4.9 % (18.3-44.2); Mean Platelet Volume 9.1 fl (7.4-10.4); Monocytes Absolute Auto 0.8 K/mm3 (0.1-0.6); Monocytes Percent Auto 7.3 % (2.6-8.5); Neutrophils Absolute Auto 9.4 K/mm3 (1.3-6.7); Neutrophils Percent Auto 86.7 % (45.5-73.1); Platelet Count Result 192 k/mm3 (150-375); Red Blood Count 3.56 M/mm3 (4.6-6.20); Red Cell Distribution Width 16.2 % (11.5-14.5); White Blood Count 10.9 K/mm3 (4.5-10.0)
[2024-12-24 06:15] LABS: Anion Gap 10 mmol/L (4-12); Blood Urea Nitrogen 24 mg/dL (9-20); Carbon Dioxide 21 mmol/L (22-30); Chloride 104 mmol/L (98-107); Estimated CRCL calculation 75 ml/min; Estimated Glomerular Filt Rate > 60; Sodium 135 mmol/L (137-145)
[2024-12-24 06:29] LABS: Glucose 112 mg/dL (65-110); Potassium 4.6 mmol/L (3.4-5.0)
[2024-12-24] MEDS: FLUTICASONE/UMECLIDIN/VILANTER 100-62.5-25 MCG ELLIPTA 1 PUFF INHALATION (06:57)
[2024-12-24] MEDS: hydroCHLOROthiazide 25 MG TABLET PO (08:10)
[2024-12-24] MEDS: OSELTAMIVIR PHOSPHATE 75 MG CAPSULE PO ×2 (08:10→20:11)
[2024-12-24] MEDS: LORATADINE 10 MG TABLET PO (08:10)
[2024-12-24] MEDS: ESCITALOPRAM OXALATE 10 MG TABLET PO (08:11)
[2024-12-24] MEDS: predniSONE 20 MG TABLET 40 MG PO (08:11)
[2024-12-24] MEDS: guaiFENesin 12 HR 600 MG TABCR PO ×2 (08:11→20:11)
[2024-12-24] MEDS: GABAPENTIN 100 MG CAPSULE PO ×3 (08:11→17:23)
[2024-12-24] MEDS: MONTELUKAST SODIUM 10 MG TABLET PO (08:11)
[2024-12-24] MEDS: VALSARTAN 160 MG TABLET 320 MG PO (08:11)
[2024-12-24] MEDS: CLOPIDOGREL BISULFATE 75 MG TABLET PO (08:11)
[2024-12-24] MEDS: DOXYCYCLINE HYCLATE 100 MG TABLET PO ×2 (08:11→20:11)
[2024-12-24] MEDS: FUROSEMIDE 40 MG TABLET PO (08:11)
[2024-12-24] MEDS: FLUTICASONE PROPIONATE 0.05% NA SPR 16 GM BTL (*BKC) 2 SPRAY NASAL (08:12)
[2024-12-24] MEDS: OPTI-GEN TAB 1 TABLET PO (08:12)
--- NOTE | 2024-12-24 13:45 | P.PNIM_ITS ---
Progress Note: A&P Assessment and Plan (1) Acute hypoxic respiratory failure: Code(s): J96.01 - Acute respiratory failure with hypoxia Status: Acute Assessment and Plan: * secondary to influenza a * currently on 2-3L nasal cannula * continue to wean for sat greater than 92% * baseline O2 requirement at home is 2 L at night only * chest x-ray was negative * continue DuoNebs * continue guaifenesin * continue prednisone (2) Influenza A: Code(s): J10.1 - Influenza due to other identified influenza virus with other respiratory manifestations Status: Acute Assessment and Plan: * respiratory panel positive for influenza A * chest x-ray negative * continue Tamiflu * continue Mucinex * continue DuoNebs (3) COPD (chronic obstructive pulmonary disease): Qualifiers: COPD type: COPD with acute exacerbation Qualified Code(s): J44.1 - Chronic obstructive pulmonary disease with (acute) exacerbation Code(s): J44.9 - Chronic obstructive pulmonary disease, unspecified Status: Chronic Assessment and Plan: * continue doxycycline * see above plan of care (4) Paroxysmal atrial fibrillation: Code(s): I48.0 - Paroxysmal atrial fibrillation Status: Chronic Assessment and Plan: * continue metoprolol * eliquis on hold per request. He is suppose to hold the eliquis until the of this month. (5) Hypertension: Qualifiers: Hypertension type: primary hypertension Qualified Code(s): I10 - Essential (primary) hypertension Code(s): I10 - Essential (primary) hypertension Status: Chronic Assessment and Plan: * blood pressure ranging 132/71 to 151/77 * Valsartan-hydrochlorothiazide 320-25 daily (6) Obstructive sleep apnea on CPAP: Code(s): G47.33 - Obstructive sleep apnea (adult) (pediatric); Z99.89 - Dependence on other enabling machines and devices Status: Chronic Assessment and Plan: * continue BiPAP Time Spent With Patient Time with patient: 25 - 35 minutes Subjective Date/time seen: 12/24/24 13:45 Interval history: Interval History: This is a 79 year old male with a significant past medical history of pAfib on anticoagulation, CHF, HTN, spinal stenosis, CASTRO on Cpap, COPD, aortic aneurysm who presented to the hospital with shortness of breath. Work up in the hospital included a chest x-ray that revealed cardiomegaly, and mild atelectasis at right lung base. Initial labs shown WBC 11.0, Hgb 12.0, Lactic acid 3.3>1.3, Troponin 0.043>0.047, ProBNP 4700. A UA was obtained and shown 3+ urine protein otherwise negative. Respiratory panel was positive for Influenza A. EKG shown Atrial fibrillation with a rate of 89, QTc 450. He was given 1L NS and started on Tamiflu. Subjective: Patient endorses fatigue and loss of appetite. He is still on 2L NC. He denies any fever, chills, nausea, vomiting, diarrhea, abdominal pain, chest pain or shortness of chest. Labs reviewed. Review of Systems Review of Systems: All systems reviewed & are unremarkable except as noted in HPI and below Constitutional: Constitutional: Reports as per HPI and Reports no additional constitutional complaints Eyes: Eyes: Reports as per HPI and Reports no additional eye complaints ENT: Reports system reviewed and no additional complaints, except as documented and Reports as per HPI Cardiovascular: Cardiovascular: Reports as per HPI and Reports no additional cardiovascular complaints Respiratory: Respiratory: Reports as per HPI and Reports no additional respiratory complaints Gastrointestinal: Gastrointestinal: Reports as per HPI and Reports no additional gastrointestinal complaints Genitourinary: Genitourinary: Reports no additional male genitourinary complaints and Reports as per HPI Musculoskeletal: Musculoskeletal: Reports no additional musculoskeletal complaints and Reports as per HPI Integumentary/Breasts: Skin/Breast: Reports system reviewed and no additional complaints, except as docu and Reports as per HPI Neurologic: Reports system reviewed and no additional complaints, except as documented and Reports as per HPI Psychiatric: Psychiatric: Reports no additional psychiatric complaints and Reports as per HPI Exam Narrative: General: In no acute distress, well nourished Head: atraumatic, no encephalopathy Eyes: PERRLA, sclera clear ENT: moist mucous membranes, nasal passages clear Neck: supple, no JVD, no adenopathy, trachea midline Cardiac: Normal S1 and S2. No murmur, gallops or friction rubs, peripheral pulses intact. Respiratory: Lungs clear to auscultation, no adventitious lung sounds, currently on 2L NC Gastrointestinal: soft, non-distended, non-tender, normoactive bowel sounds. : voiding without difficulty. Extremities: moves all extremities well, no edema Skin: clean, dry, intact. No wounds or lesions. Neuro: Alert and oriented x4, cranial nerves intact, no neuro deficits. Psych: normal mood, normal affect, interactive Objective Data Vital Signs Vital Signs: Vital Signs - 24 hr 12/23/24 14:45 12/23/24 16:10 12/23/24 16:29 Temperature 99.2 F Pulse Rate 94 110 H Respiratory Rate 18 28 H Blood Pressure 151/77 H 148/98 H Pulse Oximetry 95 96 96 Oxygen Delivery Nasal Cannula Oxygen Flow Rate 4 12/23/24 20:00 12/23/24 20:02 12/23/24 20:02 Temperature Pulse Rate 86 102 H 102 H Respiratory Rate 20 Blood Pressure Pulse Oximetry 84 L Oxygen Delivery Nasal Cannula Oxygen Flow Rate 4 12/23/24 20:10 12/23/24 22:00 12/24/24 00:00 Temperature 98 F Pulse Rate 99 99 97 Respiratory Rate 20 20 Blood Pressure 155/81 H Pulse Oximetry 95 Oxygen Delivery Oxygen Flow Rate 12/24/24 02:02 12/24/24 02:10 12/24/24 05:16 Temperature 97.3 F L Pulse Rate 99 95 86 Respiratory Rate 20 20 18 Blood Pressure 143/72 H Pulse Oximetry 97 Oxygen Delivery Oxygen Flow Rate 12/24/24 06:58 12/24/24 06:58 12/24/24 07:08 Temperature Pulse Rate 84 84 87 Respiratory Rate 18 18 18 Blood Pressure Pulse Oximetry 97 Oxygen Delivery Nasal Cannula Oxygen Flow Rate 3 12/24/24 08:04 12/24/24 08:05 12/24/24 12:05 Temperature Pulse Rate 86 84 Respiratory Rate Blood Pressure Pulse Oximetry 97 Oxygen Delivery Nasal Cannula Oxygen Flow Rate 3 Intake/Output Intake/Output: Intake & Output 12/21/24 12/22/24 12/23/24 12/24/24 23:59 23:59 23:59 23:59 Intake Total 0 490 Output Total 300 400 Balance -300 90 Meds/Results Medications: Active Medications Generic Name Dose Route Start Last Admin Trade Name Freq PRN Reason Stop Dose Admin Acetaminophen 650 mg 12/23/24 14:09 12/24/24 09:55 Acetaminophen 325 Mg Tablet PO 650 mg Q4H PRN Administration Mild Pain (1-3) or Fever Albuterol/Ipratropium 3 ml 12/23/24 20:00 12/24/24 13:40 Ipratropium 0.5 Mg/Albuterol Sulfate 2.5 Mg Ampul.Neb 3 Ml INHALATION 3 ml Q6HRT NYA Administration Alprazolam 0.25 mg 12/24/24 00:58 Alprazolam (*Crx) 0.25 Mg Tablet PO HS PRN Anxiety Apixaban 5 mg 12/24/24 09:00 Apixaban 5 Mg Tablet PO Q12HR NYA Benzocaine 1 lozenge 12/23/24 14:48 Benzocaine/Menthol (*Bkc) 18 Ea Lozenge PO PRN PRN Sore Throat Benzonatate 100 mg 12/23/24 14:47 Benzonatate 100 Mg Capsule PO TID PRN Cough Clopidogrel Bisulfate 75 mg 12/24/24 09:00 12/24/24 08:11 Clopidogrel Bisulfate 75 Mg Tablet PO 75 mg DAILY [facility]A Administration Diphenhydramine HCl 25 mg 12/24/24 00:58 Diphenhydramine Hcl Cap 25 Mg Capsule PO TID PRN Itching Doxycycline Hyclate 100 mg 12/24/24 09:00 12/24/24 08:11 Doxycycline Hyclate 100 Mg Tablet PO 12/29/24 08:59 100 mg Q12HR [facility]A Administration Escitalopram Oxalate 10 mg 12/24/24 09:00 12/24/24 08:11 Escitalopram Oxalate 10 Mg Tablet PO 10 mg DAILY [facility] Administration Fluticasone Propionate 2 spray 12/24/24 09:00 12/24/24 08:12 Fluticasone Propionate 0.05% Na Spr 16 Gm Btl (*Bkc) NASAL 2 spray DAILY [facility] Administration Fluticasone/Umeclidinium/Vilanterol 1 puff 12/24/24 08:00 12/24/24 06:57 Fluticasone/Umeclidin/Vilanter 100-62.5-25 Mcg Ellipta INHALATION 1 puff DAILYRT [facility]A Administration Furosemide 40 mg 12/24/24 09:00 12/24/24 08:11 Furosemide 40 Mg Tablet PO 40 mg DAILY [facility] Administration Gabapentin 100 mg 12/24/24 09:00 12/24/24 12:35 Gabapentin 100 Mg Capsule PO 100 mg TID [facility]A Administration Guaifenesin 600 mg 12/23/24 15:05 12/24/24 08:11 Guaifenesin 12 Hr 600 Mg Tabcr PO 600 mg Q12HR [facility] Administration Hydrochlorothiazide 25 mg 12/24/24 09:00 12/24/24 08:10 Hydrochlorothiazide 25 Mg Tablet PO 25 mg QAM [facility] Administration Loratadine 10 mg 12/24/24 09:00 12/24/24 08:10 Loratadine 10 Mg Tablet PO 10 mg DAILY [facility] Administration Melatonin 10 mg 12/24/24 21:00 Melatonin 5 Mg Tablet PO HS [facility] Metoprolol Succinate 25 mg 12/24/24 18:00 Metoprolol Succinate Ext Rel 25 Mg Tabcr PO QPM [facility] Miscellaneous Information 1 each 12/24/24 00:01 Naltrexone 1.5 Mg Capsule Is Nonformulary, Can Patient Bring From Home? XX 01/23/25 00:00 CLARIFY [facility] Montelukast Sodium 10 mg 12/24/24 09:00 12/24/24 08:11 Montelukast Sodium 10 Mg Tablet PO 10 mg DAILY [facility] Administration Multivitamins/Minerals 1 tablet 12/24/24 09:00 12/24/24 08:12 Opti-Gen Tab PO 1 tablet DAILY [facility] Administration Non-Formulary Medication 1.5 mg 12/24/24 09:00 Naltrexone PO 01/23/25 08:59 DAILY [facility] Oseltamivir Phosphate 75 mg 12/23/24 21:00 12/24/24 08:10 Oseltamivir Phosphate 75 Mg Capsule PO 12/27/24 21:01 75 mg Q12HR [facility] Administration Pantoprazole Sodium 40 mg 12/24/24 18:00 Pantoprazole 40 Mg Tablet PO QPM [facility] Pravastatin Sodium 40 mg 12/24/24 18:00 Pravastatin Sodium 20 Mg Tablet PO QPM [facility] Prednisone 40 mg 12/24/24 08:00 12/24/24 08:11 Prednisone 20 Mg Tablet PO 12/29/24 07:59 40 mg DAILY@0800 [facility] Administration Trazodone HCl 100 mg 12/24/24 21:00 Trazodone Hcl 50 Mg Tablet PO HS [facility] Valsartan 320 mg 12/24/24 09:00 12/24/24 08:11 Valsartan 160 Mg Tablet PO 160 mg QAM [facility] Administration Radiology Results: ITS Impressions Chest X-Ray 12/23/24 12:44 IMPRESSION: 1. Mild atelectasis at right lung base. 2. Cardiomegaly. Labs Labs: Laboratory Results - last 24 hr 12/23/24 12/23/24 12/23/24 12:29 15:44 16:50 WBC RBC Hgb Hct MCV MCH MCHC RDW Plt Count MPV Immature Gran % (Auto) Neut % (Auto) Lymph % (Auto) [place] % (Auto) Eos % (Auto) Baso % (Auto) Lymph # (Auto) [place] # (Auto) Eos # (Auto) Baso # (Auto) Abs Immat Gran (auto) Absolute Neuts (auto) Absolute Nucleated RBC Nucleated RBC % Sodium Potassium Chloride Carbon Dioxide Anion Gap BUN Creatinine Estim Creat Clear Calc Estimated GFR Glucose Lactic Acid 1.3 Calcium Troponin I 0.043 H* D NT-Pro-B Natriuret Pep 4700 H 12/23/24 12/24/24 18:35 05:31 WBC 10.9 H RBC 3.56 L Hgb 11.4 L Hct 35.6 L MCV 100.0 MCH 32.0 MCHC 32.0 RDW 16.2 H Plt Count 192 MPV 9.1 Immature Gran % (Auto) 0.5 Neut % (Auto) 86.7 H Lymph % (Auto) 4.9 L [place] % (Auto) 7.3 Eos % (Auto) 0.1 Baso % (Auto) 0.5 Lymph # (Auto) 0.53 L [place] # (Auto) 0.8 H Eos # (Auto) 0.0 Baso # (Auto) 0.1 Abs Immat Gran (auto) 0.05 H Absolute Neuts (auto) 9.4 H Absolute Nucleated RBC 0.000 Nucleated RBC % 0.0 Sodium 135 L Potassium 4.6 Chloride 104 Carbon Dioxide 21 L Anion Gap 10 BUN 24 H Creatinine 0.96 Estim Creat Clear Calc 75 Estimated GFR > 60 Glucose 112 H Lactic Acid Calcium 8.0 L Troponin I 0.047 H* NT-Pro-B Natriuret Pep Quality VTE Prophylaxis VTE prophylaxis: pharmacologic ordered
[2024-12-24] MEDS: PRAVASTATIN SODIUM 20 MG TABLET 40 MG PO (17:23)
[2024-12-24] MEDS: METOPROLOL SUCCINATE EXT REL 25 MG TABCR PO (17:23)
[2024-12-24] MEDS: PANTOPRAZOLE 40 MG TABLET PO (17:23)
[2024-12-24] MEDS: MELATONIN 5 MG TABLET 10 MG PO (20:11)
[2024-12-25] VITALS (15 sets, daily range): BP systolic 146–155; BP diastolic 85–90; PULSE 82–105; RESP 18–20; TEMP 36.2–36.7; O2SAT 92–100
[2024-12-25] MEDS: IPRATROPIUM 0.5 MG/ALBUTEROL SULFATE 2.5 MG AMPUL.NEB 3 ML INHALATION ×4 (03:25→19:49)
[2024-12-25 05:59] LABS: Basophils Percent Auto 0.2 % (0.2-1.2); Hematocrit 37.3 % (42.0-52.0); Hemoglobin 11.8 g/dL (14.0-18.0); Immature Granulocyte Absolute 0.05 K/mm3 (0.00-0.031); Immature Granulocyte Percent A 0.5 % (0-0.5); Lymphocytes Percent Auto 7.9 % (18.3-44.2); Mean Corpuscular HGB Conc 31.6 g/dl (32-36); Mean Corpuscular Hemoglobin 31.1 pg (26-34); Mean Corpuscular Volume 98.4 fl (80-100); Mean Platelet Volume 8.9 fl (7.4-10.4); Monocytes Absolute Auto 0.8 K/mm3 (0.1-0.6); Monocytes Percent Auto 7.6 % (2.6-8.5); Neutrophils Absolute Auto 8.5 K/mm3 (1.3-6.7); Neutrophils Percent Auto 83.8 % (45.5-73.1); Platelet Count Result 209 k/mm3 (150-375); Red Blood Count 3.79 M/mm3 (4.6-6.20); Red Cell Distribution Width 15.9 % (11.5-14.5); White Blood Count 10.1 K/mm3 (4.5-10.0)
[2024-12-25 06:14] LABS: Alanine Aminotransferase 28 U/L (6-50); Albumin Level 3.6 g/dL (3.5-5.1); Alkaline Phosphatase 65 U/L (38-126); Anion Gap 8 mmol/L (4-12); Aspartate Amino Transferase 50 U/L (17-59); Bilirubin,Total 0.7 mg/dL (0.2-1.3); Blood Urea Nitrogen 31 mg/dL (9-20); Carbon Dioxide 30 mmol/L (22-30); Chloride 101 mmol/L (98-107); Estimated CRCL calculation 70 ml/min; Estimated Glomerular Filt Rate > 60; Glucose 111 mg/dL (65-110); Potassium 3.7 mmol/L (3.4-5.0); Sodium 139 mmol/L (137-145)
[2024-12-25] MEDS: FLUTICASONE/UMECLIDIN/VILANTER 100-62.5-25 MCG ELLIPTA 1 PUFF INHALATION (09:10)
[2024-12-25] MEDS: GABAPENTIN 100 MG CAPSULE PO ×3 (09:11→17:11)
[2024-12-25] MEDS: hydroCHLOROthiazide 12.5 MG CAPSULE PO (09:11)
[2024-12-25] MEDS: FUROSEMIDE 40 MG TABLET PO (09:11)
[2024-12-25] MEDS: CLOPIDOGREL BISULFATE 75 MG TABLET PO (09:11)
[2024-12-25] MEDS: ESCITALOPRAM OXALATE 10 MG TABLET PO (09:12)
[2024-12-25] MEDS: VALSARTAN 160 MG TABLET PO (09:12)
[2024-12-25] MEDS: MONTELUKAST SODIUM 10 MG TABLET PO (09:12)
[2024-12-25] MEDS: OSELTAMIVIR PHOSPHATE 75 MG CAPSULE PO ×2 (09:12→20:23)
[2024-12-25] MEDS: guaiFENesin 12 HR 600 MG TABCR PO ×2 (09:12→20:23)
[2024-12-25] MEDS: OPTI-GEN TAB 1 TABLET PO (09:13)
[2024-12-25] MEDS: DOXYCYCLINE HYCLATE 100 MG TABLET PO ×2 (09:13→20:23)
[2024-12-25] MEDS: predniSONE 20 MG TABLET 40 MG PO (09:13)
[2024-12-25] MEDS: LORATADINE 10 MG TABLET PO (09:13)
[2024-12-25] MEDS: FLUTICASONE PROPIONATE 0.05% NA SPR 16 GM BTL (*BKC) 2 SPRAY NASAL (09:14)
--- NOTE | 2024-12-25 11:12 | P.PNIM_ITS ---
Progress Note: A&P Assessment and Plan (1) Acute hypoxic respiratory failure: Code(s): J96.01 - Acute respiratory failure with hypoxia Status: Acute Assessment and Plan: * secondary to influenza A * currently on 2-3L nasal cannula * continue to wean for sat greater than 92% * baseline O2 requirement at home is 2 L at night only * chest x-ray was negative * continue DuoNebs * continue guaifenesin * continue prednisone 12/25 * Continue to wean O2 for SPO2 >92% * Currently on 2L NC * Will add Pep therapy * Continue Duo-nebs, Guaifenesin, and prednisone (2) Influenza A: Code(s): J10.1 - Influenza due to other identified influenza virus with other respiratory manifestations Status: Acute Assessment and Plan: * respiratory panel positive for influenza A * chest x-ray negative * continue Tamiflu * continue Mucinex * continue DuoNebs 12/25 * Continue Tamiflu, Mucinex, duonebs, prednisone (3) COPD (chronic obstructive pulmonary disease): Qualifiers: COPD type: COPD with acute exacerbation Qualified Code(s): J44.1 - Chronic obstructive pulmonary disease with (acute) exacerbation Code(s): J44.9 - Chronic obstructive pulmonary disease, unspecified Status: Chronic Assessment and Plan: * continue doxycycline * see above plan of care 12/25 * no change (4) Paroxysmal atrial fibrillation: Code(s): I48.0 - Paroxysmal atrial fibrillation Status: Chronic Assessment and Plan: * continue metoprolol * eliquis on hold per request. He is suppose to hold the eliquis until the of this month. 12/25 * No change, will start Eliquis tomorrow (5) Hypertension: Qualifiers: Hypertension type: primary hypertension Qualified Code(s): I10 - Essential (primary) hypertension Code(s): I10 - Essential (primary) hypertension Status: Chronic Assessment and Plan: * blood pressure ranging 132/71 to 151/77 * continue Valsartan-hydrochlorothiazide 12/25 * No change (6) Obstructive sleep apnea on CPAP: Code(s): G47.33 - Obstructive sleep apnea (adult) (pediatric); Z99.89 - Dependence on other enabling machines and devices Status: Chronic Assessment and Plan: * continue BiPAP 12/25 * No change Time Spent With Patient Time with patient: Greater than 35 minutes Subjective Date/time seen: 12/25/24 11:12 Interval history: Interval History: This is a 79 year old male with a significant past medical history of pAfib on anticoagulation, CHF, HTN, spinal stenosis, CASTRO on Cpap, COPD, aortic aneurysm who presented to the hospital with shortness of breath. Work up in the hospital included a chest x-ray that revealed cardiomegaly, and mild atelectasis at right lung base. Initial labs shown WBC 11.0, Hgb 12.0, Lactic acid 3.3>1.3, Troponin 0.043>0.047, ProBNP 4700. A UA was obtained and shown 3+ urine protein otherwise negative. Respiratory panel was positive for Influenza A. EKG shown Atrial fibrillation with a rate of 89, QTc 450. He was given 1L NS and started on Tamiflu. Subjective: Patient denies any new complaints today. Labs reviewed. Review of Systems Review of Systems: All systems reviewed & are unremarkable except as noted in HPI and below Constitutional: Constitutional: Reports as per HPI and Reports no additional constitutional complaints Eyes: Eyes: Reports as per HPI and Reports no additional eye complaints ENT: Reports system reviewed and no additional complaints, except as documented and Reports as per HPI Cardiovascular: Cardiovascular: Reports as per HPI and Reports no additional cardiovascular complaints Respiratory: Respiratory: Reports as per HPI and Reports no additional respiratory complaints Gastrointestinal: Gastrointestinal: Reports as per HPI and Reports no additional gastrointestinal complaints Genitourinary: Genitourinary: Reports no additional male genitourinary complaints and Reports as per HPI Musculoskeletal: Musculoskeletal: Reports no additional musculoskeletal complaints and Reports as per HPI Integumentary/Breasts: Skin/Breast: Reports system reviewed and no additional complaints, except as docu and Reports as per HPI Neurologic: Reports system reviewed and no additional complaints, except as documented and Reports as per HPI Psychiatric: Psychiatric: Reports no additional psychiatric complaints and Reports as per HPI Exam Narrative: General: In no acute distress, well nourished Cardiac: Normal S1 and S2. No murmur, gallops or friction rubs, peripheral pulses intact. Respiratory:Rhonchi with mild wheezing bilaterally, no adventitious lung sounds, currently on 2L NC Gastrointestinal: soft, non-distended, non-tender, normoactive bowel sounds. : voiding without difficulty. Neuro: Alert and oriented x4 Objective Data Vital Signs Vital Signs: Vital Signs - 24 hr 12/24/24 12:05 12/24/24 13:00 12/24/24 13:38 Temperature Pulse Rate 84 90 Respiratory Rate 20 Blood Pressure Pulse Oximetry 98 Oxygen Delivery Nasal Cannula Oxygen Flow Rate 2 12/24/24 13:46 12/24/24 15:20 12/24/24 20:24 Temperature 97.6 F 98.1 F Pulse Rate 89 97 84 Respiratory Rate 20 17 18 Blood Pressure 148/81 H 117/80 Pulse Oximetry 98 95 Oxygen Delivery Oxygen Flow Rate 12/24/24 21:27 12/24/24 21:28 12/24/24 21:36 Temperature Pulse Rate 87 83 87 Respiratory Rate 20 20 Blood Pressure Pulse Oximetry 97 Oxygen Delivery Nasal Cannula Oxygen Flow Rate 3 12/24/24 21:45 12/25/24 03:29 12/25/24 05:35 Temperature 98.1 F Pulse Rate 82 85 Respiratory Rate 18 18 Blood Pressure 155/90 H Pulse Oximetry 97 100 Oxygen Delivery Autopap Oxygen Flow Rate 12/25/24 09:06 12/25/24 09:06 12/25/24 09:13 Temperature Pulse Rate 89 89 104 H Respiratory Rate 20 20 20 Blood Pressure Pulse Oximetry 98 Oxygen Delivery Nasal Cannula Oxygen Flow Rate 3 Intake/Output Intake/Output: Intake & Output 12/22/24 12/23/24 12/24/24 12/25/24 23:59 23:59 23:59 23:59 Intake Total 0 850 630 Output Total 300 1650 500 Balance -300 -800 130 Meds/Results Medications: Active Medications Generic Name Dose Route Start Last Admin Trade Name Freq PRN Reason Stop Dose Admin Acetaminophen 650 mg 12/23/24 14:09 12/24/24 09:55 Acetaminophen 325 Mg Tablet PO 650 mg Q4H PRN Administration Mild Pain (1-3) or Fever Albuterol/Ipratropium 3 ml 12/23/24 20:00 12/25/24 09:02 Ipratropium 0.5 Mg/Albuterol Sulfate 2.5 Mg Ampul.Neb 3 Ml INHALATION 3 ml Q6HRT NYA Administration Alprazolam 0.25 mg 12/24/24 00:58 Alprazolam (*Crx) 0.25 Mg Tablet PO HS PRN Anxiety Apixaban 5 mg 12/24/24 09:00 12/24/24 14:27 Apixaban 5 Mg Tablet PO Not Given Q12HR [facility] Benzocaine 1 lozenge 12/23/24 14:48 Benzocaine/Menthol (*Bkc) 18 Ea Lozenge PO PRN PRN Sore Throat Benzonatate 100 mg 12/23/24 14:47 Benzonatate 100 Mg Capsule PO TID PRN Cough Clopidogrel Bisulfate 75 mg 12/24/24 09:00 12/25/24 09:11 Clopidogrel Bisulfate 75 Mg Tablet PO 75 mg DAILY [facility] Administration Diphenhydramine HCl 25 mg 12/24/24 00:58 Diphenhydramine Hcl Cap 25 Mg Capsule PO TID PRN Itching Doxycycline Hyclate 100 mg 12/24/24 09:00 12/25/24 09:13 Doxycycline Hyclate 100 Mg Tablet PO 12/29/24 08:59 100 mg Q12HR [facility] Administration Escitalopram Oxalate 10 mg 12/24/24 09:00 12/25/24 09:12 Escitalopram Oxalate 10 Mg Tablet PO 10 mg DAILY [facility] Administration Fluticasone Propionate 2 spray 12/24/24 09:00 12/25/24 09:14 Fluticasone Propionate 0.05% Na Spr 16 Gm Btl (*Bkc) NASAL 2 spray DAILY [facility] Administration Fluticasone/Umeclidinium/Vilanterol 1 puff 12/24/24 08:00 12/25/24 09:10 Fluticasone/Umeclidin/Vilanter 100-62.5-25 Mcg Ellipta INHALATION 1 puff DAILYRT [facility] Administration Furosemide 40 mg 12/24/24 09:00 12/25/24 09:11 Furosemide 40 Mg Tablet PO 40 mg DAILY [facility] Administration Gabapentin 100 mg 12/24/24 09:00 12/25/24 09:11 Gabapentin 100 Mg Capsule PO 100 mg TID [facility] Administration Guaifenesin 600 mg 12/23/24 15:05 12/25/24 09:12 Guaifenesin 12 Hr 600 Mg Tabcr PO 600 mg Q12HR [facility] Administration Hydrochlorothiazide 12.5 mg 12/25/24 09:00 12/25/24 09:11 Hydrochlorothiazide 12.5 Mg Capsule PO 12.5 mg QAM [facility] Administration Loratadine 10 mg 12/24/24 09:00 12/25/24 09:13 Loratadine 10 Mg Tablet PO 10 mg DAILY [facility] Administration Melatonin 10 mg 12/24/24 21:00 12/24/24 20:11 Melatonin 5 Mg Tablet PO 10 mg HS [facility] Administration Metoprolol Succinate 25 mg 12/24/24 18:00 12/24/24 17:23 Metoprolol Succinate Ext Rel 25 Mg Tabcr PO 25 mg QPM [facility] Administration Miscellaneous Information 1 each 12/24/24 00:01 Naltrexone 1.5 Mg Capsule Is Nonformulary, Can Patient Bring From Home? XX 01/23/25 00:00 CLARIFY [facility] Montelukast Sodium 10 mg 12/24/24 09:00 12/25/24 09:12 Montelukast Sodium 10 Mg Tablet PO 10 mg DAILY [facility] Administration Multivitamins/Minerals 1 tablet 12/24/24 09:00 12/25/24 09:13 Opti-Gen Tab PO 1 tablet DAILY [facility] Administration Non-Formulary Medication 1.5 mg 12/24/24 09:00 Naltrexone PO 01/23/25 08:59 DAILY [facility] Oseltamivir Phosphate 75 mg 12/23/24 21:00 12/25/24 09:12 Oseltamivir Phosphate 75 Mg Capsule PO 12/27/24 21:01 75 mg Q12HR [facility]A Administration Pantoprazole Sodium 40 mg 12/24/24 18:00 12/24/24 17:23 Pantoprazole 40 Mg Tablet PO 40 mg QPM [facility] Administration Pravastatin Sodium 40 mg 12/24/24 18:00 12/24/24 17:23 Pravastatin Sodium 20 Mg Tablet PO 40 mg QPM [facility] Administration Prednisone 40 mg 12/24/24 08:00 12/25/24 09:13 Prednisone 20 Mg Tablet PO 12/29/24 07:59 40 mg DAILY@0800 [facility] Administration Trazodone HCl 100 mg 12/24/24 21:00 12/24/24 20:11 Trazodone Hcl 50 Mg Tablet PO Not Given HS [facility] Valsartan 160 mg 12/25/24 09:00 12/25/24 09:12 Valsartan 160 Mg Tablet PO 160 mg QAM [facility] Administration Radiology Results: ITS Impressions Chest X-Ray 12/23/24 12:44 IMPRESSION: 1. Mild atelectasis at right lung base. 2. Cardiomegaly. Labs Labs: Laboratory Results - last 24 hr 12/25/24 05:38 WBC 10.1 H RBC 3.79 L Hgb 11.8 L Hct 37.3 L MCV 98.4 MCH 31.1 MCHC 31.6 L RDW 15.9 H Plt Count 209 MPV 8.9 Immature Gran % (Auto) 0.5 Neut % (Auto) 83.8 H Lymph % (Auto) 7.9 L [place] % (Auto) 7.6 Eos % (Auto) 0.0 Baso % (Auto) 0.2 Lymph # (Auto) 0.80 L [place] # (Auto) 0.8 H Eos # (Auto) 0.0 Baso # (Auto) 0.0 Abs Immat Gran (auto) 0.05 H Absolute Neuts (auto) 8.5 H Absolute Nucleated RBC 0.000 Nucleated RBC % 0.0 Sodium 139 Potassium 3.7 Chloride 101 Carbon Dioxide 30 Anion Gap 8 BUN 31 H Creatinine 1.03 Estim Creat Clear Calc 70 Estimated GFR > 60 Glucose 111 H Calcium 9.0 Total Bilirubin 0.7 AST 50 ALT 28 Alkaline Phosphatase 65 Total Protein 7.0 Albumin 3.6 Quality VTE Prophylaxis VTE prophylaxis: pharmacologic ordered
[2024-12-25] MEDS: METOPROLOL SUCCINATE EXT REL 25 MG TABCR PO (17:09)
[2024-12-25] MEDS: PRAVASTATIN SODIUM 20 MG TABLET 40 MG PO (17:10)
[2024-12-25] MEDS: PANTOPRAZOLE 40 MG TABLET PO (17:11)
[2024-12-25] MEDS: MELATONIN 5 MG TABLET 10 MG PO (20:23)
[2024-12-26 06:00] VITALS: BP 152/90; PULSE 79; RESP 18; TEMP 36.3; O2SAT 97
[2024-12-26 06:24] LABS: Basophils Percent Auto 0.1 % (0.2-1.2); Hematocrit 37.7 % (42.0-52.0); Hemoglobin 12.1 g/dL (14.0-18.0); Immature Granulocyte Absolute 0.06 K/mm3 (0.00-0.031); Immature Granulocyte Percent A 0.5 % (0-0.5); Lymphocytes Absolute Auto 0.97 K/mm3 (0.9-3.2); Lymphocytes Percent Auto 7.8 % (18.3-44.2); Mean Corpuscular HGB Conc 32.1 g/dl (32-36); Mean Corpuscular Hemoglobin 30.9 pg (26-34); Mean Corpuscular Volume 96.4 fl (80-100); Mean Platelet Volume 9.1 fl (7.4-10.4); Monocytes Absolute Auto 0.9 K/mm3 (0.1-0.6); Monocytes Percent Auto 6.9 % (2.6-8.5); Neutrophils Absolute Auto 10.5 K/mm3 (1.3-6.7); Neutrophils Percent Auto 84.7 % (45.5-73.1); Platelet Count Result 256 k/mm3 (150-375); Red Blood Count 3.91 M/mm3 (4.6-6.20); Red Cell Distribution Width 15.9 % (11.5-14.5); White Blood Count 12.4 K/mm3 (4.5-10.0)
[2024-12-26 06:37] LABS: Alanine Aminotransferase 62 U/L (6-50); Albumin Level 3.4 g/dL (3.5-5.1); Alkaline Phosphatase 64 U/L (38-126); Anion Gap 9 mmol/L (4-12); Aspartate Amino Transferase 77 U/L (17-59); Bilirubin,Total 0.6 mg/dL (0.2-1.3); Blood Urea Nitrogen 40 mg/dL (9-20); Carbon Dioxide 30 mmol/L (22-30); Chloride 100 mmol/L (98-107); Estimated CRCL calculation 68 ml/min; Estimated Glomerular Filt Rate > 60; Glucose 108 mg/dL (65-110); Potassium 3.9 mmol/L (3.4-5.0); Sodium 139 mmol/L (137-145)
[2024-12-26] MEDS: FLUTICASONE/UMECLIDIN/VILANTER 100-62.5-25 MCG ELLIPTA 1 PUFF INHALATION (08:25)
[2024-12-26 08:35] VITALS: O2SAT 92
[2024-12-26] MEDS: MONTELUKAST SODIUM 10 MG TABLET PO (08:41)
[2024-12-26] MEDS: FUROSEMIDE 40 MG TABLET PO (08:41)
[2024-12-26] MEDS: IPRATROPIUM 0.5 MG/ALBUTEROL SULFATE 2.5 MG AMPUL.NEB 3 ML INHALATION ×2 (08:41→14:42)
[2024-12-26] MEDS: FLUTICASONE PROPIONATE 0.05% NA SPR 16 GM BTL (*BKC) 2 SPRAY NASAL (08:41)
[2024-12-26] MEDS: GABAPENTIN 100 MG CAPSULE PO ×2 (08:42→12:03)
[2024-12-26] MEDS: predniSONE 20 MG TABLET 40 MG PO (08:42)
[2024-12-26] MEDS: guaiFENesin 12 HR 600 MG TABCR PO (08:42)
[2024-12-26] MEDS: hydroCHLOROthiazide 12.5 MG CAPSULE PO (08:42)
[2024-12-26] MEDS: DOXYCYCLINE HYCLATE 100 MG TABLET PO (08:42)
[2024-12-26] MEDS: LORATADINE 10 MG TABLET PO (08:42)
[2024-12-26] MEDS: VALSARTAN 160 MG TABLET PO (08:42)
[2024-12-26] MEDS: CLOPIDOGREL BISULFATE 75 MG TABLET PO (08:42)
[2024-12-26] MEDS: OSELTAMIVIR PHOSPHATE 75 MG CAPSULE PO (08:42)
[2024-12-26] MEDS: OPTI-GEN TAB 1 TABLET PO (08:43)
[2024-12-26] MEDS: ESCITALOPRAM OXALATE 10 MG TABLET PO (08:43)
[2024-12-26 08:44] VITALS: PULSE 78; RESP 20
[2024-12-26 08:55] VITALS: RESP 20
[2024-12-26 13:59] VITALS: BP 134/77; PULSE 96; RESP 16; TEMP 36.2; O2SAT 95
--- NOTE | 2024-12-26 14:00 | PM.DS ---
DS: Admitting Diagnosis Discharge Date 12/26/2024 Admitting Diagnosis shortness of breath DS: Discharge Diagnosis Discharge Diagnosis (1) Acute hypoxic respiratory failure: Code(s): J96.01 - Acute respiratory failure with hypoxia Status: Acute (2) Influenza A: Code(s): J10.1 - Influenza due to other identified influenza virus with other respiratory manifestations Status: Acute (3) COPD (chronic obstructive pulmonary disease): Qualifiers: COPD type: COPD with acute exacerbation Qualified Code(s): J44.1 - Chronic obstructive pulmonary disease with (acute) exacerbation Code(s): J44.9 - Chronic obstructive pulmonary disease, unspecified Status: Chronic (4) Paroxysmal atrial fibrillation: Code(s): I48.0 - Paroxysmal atrial fibrillation Status: Chronic (5) Hypertension: Qualifiers: Hypertension type: primary hypertension Qualified Code(s): I10 - Essential (primary) hypertension Code(s): I10 - Essential (primary) hypertension Status: Chronic (6) Obstructive sleep apnea on CPAP: Code(s): G47.33 - Obstructive sleep apnea (adult) (pediatric); Z99.89 - Dependence on other enabling machines and devices Status: Chronic DS: Summary Hospital Course Hospital Course: this is a 79-year-old male who presented to the ED with shortness of breath. He reported that he began feeling generally unwell around 2 days ago. Shortness of breath began in the morning which is compounded by body aches headache chills fatigue and weakness. He denied any fever chest pain dizziness palpitation nausea vomiting or diarrhea. He uses supplemental oxygen particularly at nighttime 2 L. On ED presentation is vitals initially was 103 degree temperature heart rate of 96 respiratory 21 % is on 2 L oxygen via nasal cannula. ED workup showed WBC count 11 hemoglobin of 12 ABG showed pH 7.47 pCO2 31 O2 79 oxygen saturation of 96% on 2 L creatinine was 1.03 glucose 292 lactate of 3.3 initial troponin 0.019 UA showed 3+ protein otherwise unremarkable. Patient tested positive for flu a. Chest x-ray showed mild atelectasis at the right lung base and cardiomegaly. Patient was admitted and was started on Tamiflu and supportive treatment. Patient was started on doxycycline and steroid. His oxygen requirement improved during the hospital stay and was off to room air by the time of discharge. He also significantly improved clinically and will be discharged home for continued treatment. Time Spent with Patient Time attestation: Total time spent providing and/or coordinating discharge services: 35 minutes Exam Narrative: General: In no acute distress, well nourished Cardiac: Normal S1 and S2. No murmur, gallops or friction rubs, peripheral pulses intact. Respiratory: coarse breath sounds bilaterally, no adventitious lung sounds Gastrointestinal: soft, non-distended, non-tender, normoactive bowel sounds. : voiding without difficulty. Neuro: Alert and oriented x4 DS: Data Data Completed and Pending Labs on day of discharge: Labs from last 24 hours 12/26/24 06:00 WBC 12.4 H RBC 3.91 L Hgb 12.1 L Hct 37.7 L MCV 96.4 MCH 30.9 MCHC 32.1 RDW 15.9 H Plt Count 256 MPV 9.1 Immature Gran % (Auto) 0.5 Neut % (Auto) 84.7 H Lymph % (Auto) 7.8 L [place] % (Auto) 6.9 Eos % (Auto) 0.0 Baso % (Auto) 0.1 L Lymph # (Auto) 0.97 [place] # (Auto) 0.9 H Eos # (Auto) 0.0 Baso # (Auto) 0.0 Abs Immat Gran (auto) 0.06 H Absolute Neuts (auto) 10.5 H Absolute Nucleated RBC 0.000 Nucleated RBC % 0.0 Sodium 139 Potassium 3.9 Chloride 100 Carbon Dioxide 30 Anion Gap 9 BUN 40 H Creatinine 1.07 Estim Creat Clear Calc 68 Estimated GFR > 60 Glucose 108 Calcium 9.0 Total Bilirubin 0.6 AST 77 H ALT 62 H Alkaline Phosphatase 64 Total Protein 7.0 Albumin 3.4 L Imaging Radiologist's impression: ITS Impressions Chest X-Ray 12/23/24 12:44 IMPRESSION: 1. Mild atelectasis at right lung base. 2. Cardiomegaly. Discharge Plan Discharge Attending physician on discharge: Jacoby Pinto Discharging Clinician: Jacoby Pinto Anticipated Discharge Date/Time: 12/26/24 14:04 Patient Disposition: Home, Self-Care Activity: as tolerated Diet: heart healthy and diabetic Patient Instructions: Antibiotic Form, Apixaban (By mouth), Heart Failure (DC) Patient Language: Guyanese Stand Alone Forms: General Discharge Information Follow-up/Referrals: Alex,Odin Maria MD [Primary Care Provider] - 1 Week Discharge Medications: New oseltamivir [Tamiflu] 75 mg Capsule 75 mg PO Q12HR Qty: 3 0RF guaifenesin [Mucus Relief ER] 600 mg Tablet Extended Release 12hr 600 mg PO Q12HR Qty: 30 0RF doxycycline hyclate 100 mg Tablet 100 mg PO Q12HR Qty: 9 0RF prednisone 20 mg Tablet 40 mg PO DAILY@0800 Qty: 4 0RF Continued Breztri Aerosphere 160-9-4.8 mcg/actuation HFA aerosol inhaler 1 inh INHALATION BID pravastatin 40 mg tablet 40 mg PO QPM metoprolol succinate 100 mg tablet extended release 24 hr 25 mg PO QPM acetaminophen 650 mg Tablet 650 mg PO Q6H PRN (Reason: pain) alprazolam 0.25 mg Tablet 0.25 mg PO HS PRN (Reason: Anxiety) pantoprazole 40 mg tablet,delayed release (DR/EC) 40 mg PO QPM diphenhydramine HCl [Benadryl] 25 mg Capsule 25 mg PO TID PRN (Reason: Itching) montelukast 10 mg tablet 10 mg PO DAILY fluticasone propionate 50 mcg/actuation [place],Suspension 2 spray INTRANASAL DAILY Rx Instructions: administer into each nostril loratadine [Claritin] 10 mg Tablet 10 mg PO DAILY valsartan-hydrochlorothiazide 320-25 mg tablet 0.5 tablet PO DAILY Patient Comments: Started half pill 12/10/24 Centrum Silver Men 300-600-300 mcg Tablet 1 tablet PO DAILY melatonin 10 mg Tablet 10 mg PO HS Eliquis 5 mg tablet 5 mg PO Q12H Patient Comments: restart 12/26/24 escitalopram oxalate 10 mg tablet 10 mg PO DAILY furosemide 40 mg tablet 40 mg PO DAILY gabapentin 100 mg capsule 100 mg PO TID naltrexone 1.5 mg capsule 1.5 mg PO DAILY trazodone 100 mg tablet 100 mg PO HS clopidogrel 75 mg tablet 75 mg PO DAILY Date of admission: 12/24/24 10:08 Primary Care Provider: Federico,Odin Maria Admitting Provider: Ugo Oliveros Attending physician on admission: Daniella Topete Condition: Stable
[2024-12-26 14:43] VITALS: PULSE 74
== END 2024-12-26 15:00 | disposition home or self-care (01) | DRG 194 ==
LOC: ANHED 14:11 → ANH3MED 15:10
PROVIDERS: Emergency Medicine; Nurse Practitioner Acute Care; Student in an Organized Health Care Education/Training Program; Admitting Provider Internal Medicine; Emergency Provider Emergency Medicine; PCP Internal Medicine; Visit Provider Internal Medicine
DX: J10.1 Influenza due to other identified influenza virus with other respiratory manifestations (principal); J44.0 Chronic obstructive pulmonary disease with (acute) lower respiratory infection; J44.1 Chronic obstructive pulmonary disease with (acute) exacerbation; I71.40 Abdominal aortic aneurysm, without rupture, unspecified; I48.0 Paroxysmal atrial fibrillation; G47.33 Obstructive sleep apnea (adult) (pediatric); I10 Essential (primary) hypertension; I11.0 Hypertensive heart disease with heart failure; I50.9 Heart failure, unspecified; K21.9 Gastro-esophageal reflux disease without esophagitis; Z79.01 Long term (current) use of anticoagulants; Z98.42 Cataract extraction status, left eye; Z98.41 Cataract extraction status, right eye; Z87.891 Personal history of nicotine dependence; M48.00 Spinal stenosis, site unspecified; Z85.828 Personal history of other malignant neoplasm of skin
CPT/HCPCS: 36415; 36600; 71045; 80048; 80053; 81001; 82375; 82805; 83050; 83605; 83880; 84484; 85018; 85025; 87637; 93005; 94640; 94667; 96360; 96361; 99285; A9270; J7030; J7512

== ENCOUNTER 2025-02-06 19:29 | Emergency (ER) | payer OTHER, MEDICARE, SELFPAY ==
--- NOTE | ~2025-02-06 | CT_ITS ---
EXAMINATION: CT brain wo con DATE: 02/06/2025 20:09 INDICATION: fall w/ head trauma on eliquis . TECHNIQUE: Computed tomography (CT) of the head was performed without intravenous contrast. The mA wa s adjusted according to patient size. Iterative reconstruction technique was employed. The dose-lengt h product was 983.67 mGy-cm. COMPARISON: 01/16/2024. FINDINGS: No acute intracranial hemorrhage or extra-axial fluid collection. No hydrocephalus, mass, or herniation. No acute ischemic infarct. Unremarkable dural venous sinus attenuation. No acute osseous abnormality. Right posterior scalp swelling. Mild ethmoid and right maxillary mucosal thickening, the remaining aerated spaces are clear. Mild atrophy and chronic white matter change. Atherosclerotic intracranial calcification. Bilateral l ens replacements. Scattered areas of encephalomalacia. IMPRESSION: No acute intracranial process. Reviewed, dictated and finalized at location K.
--- NOTE | ~2025-02-06 | XR_ITS ---
EXAM: XR elbow RT min 3V DATE: 02/06/2025 20:16 HISTORY: fall with trauma . COMPARISON: None available. FINDINGS: Normal mineralization. No fracture or dislocation. No lytic or blastic lesion. Mild degene rative change at the elbow joint. Moderate medial, lateral, and olecranon enthesopathy. No erosion or periosteal change. Soft tissues within normal limits. IMPRESSION: No acute osseous finding in the left elbow. Reviewed, dictated and finalized at location K.
--- NOTE | ~2025-02-06 | CT_ITS ---
EXAMINATION: CT chest abdomen pelvis wo con DATE: 02/06/2025 20:09 INDICATION: fall with R rib/shoulder/back pain, on eliquis . TECHNIQUE: Computed tomography (CT) of the chest, abdomen, and pelvis was performed without intraveno us contrast. Automated exposure control and iterative reconstruction technique were employed. The dos e-length product was 2211.49 mGy-cm. COMPARISON: CT chest 03/05/2024; CTA chest abdomen pelvis 09/24/2022 FINDINGS: CHEST: No thoracic aortic injury. Mild atherosclerotic calcification. No mediastinal hematoma. No pericardial effusion. Coronary artery calcification. No acute lung injury. Left lower lobe granuloma (image 105/161). No pleural effusion or pneumothorax. ABDOMEN/PELVIS: No solid organ injury. Bilateral perinephric stranding. 6.4 cm simple right renal cyst. Simple 1 cm l eft renal cysts. No evidence of bowel or mesenteric injury. Minimal scattered diverticuli. No free fluid or free air. No retroperitoneal hematoma. Stable small saccular infrarenal abdominal aortic aneurysm. Pelvic contents are atraumatic. MUSCULOSKELETAL: No acute fracture. No fracture or traumatic malalignment of the thoracic or lumbar spine. IMPRESSION: No acute process detected in the chest, abdomen, or pelvis. Reviewed, dictated and finalized at location K.
--- NOTE | ~2025-02-06 | CT_ITS ---
EXAMINATION: CT cervical spine wo con DATE: 02/06/2025 20:09 INDICATION: fall w/ trauma TECHNIQUE: Computed tomography (CT) of the cervical spine was performed without intravenous contrast. Automated exposure control and iterative reconstruction technique were employed. The dose-length pro duct was 412.92 mGy-cm. COMPARISON: None. FINDINGS: Vertebral Body Alignment: Intact. Craniocervical and atlantoaxial alignment: Moderate degenerative change. Alignment intact. Osseous structures/fracture: No evidence of a lytic or blastic process in the visualized spine. No e vidence of acute fracture. Cervical soft tissues: The paraspinal soft tissues planes are maintained. Degenerative changes: Degenerative changes, without severe neural foraminal or central canal narrowin g. Minimal biapical pleural scarring. IMPRESSION: No acute fracture or traumatic malalignment in the cervical spine. Reviewed, dictated and finalized at location K.
--- OUTSIDE RECORDS SUMMARY | 2025-02-06 19:31 | XMS_ITS ---
Author Organization [facility] Address [address] [place], [place] [id number] Care Team Providers Care Engineering Design Supervisor Name Role Phone DANNY ROSE Unavailable [phone] Odin Alex Unavailable Unavailable REASON FOR VISIT Cellulitis check Encounters Encounter Location Date Provider Diagnosis [facility] [place] [address] [facility] [address] [place], [place] [id number] 11/21/2023 DANNY ROSE Plan Of Treatment Next Appt Details Provider Name:DANNY BELLO, 02/10/2025 11:10:00 AM, [address], [facility], [place], [place], [id number], Progress Notes * MESFIN CASTAÑEDA LDOB:1944 (79 yo M)Acc No.[id number]:11/21/2023 Patient: Irineo MESFIN RAMIREZ Provider: Damian Rose DPM :1945 A ge:78 Y S ex:Male Date:11/21/2023 Address:[address] [place] [address] Subjective: * Chief Complaints: * 1 . Cellulitis check. * Medical History: Objective: * Vitals: Assessment: Plan: * Treatment: * Billing Information: * Visit Code: * Procedure Codes: * Electronic signature of DANNY ROSE DPM on 02/06/2025 at 07:31 PM CDT Sign off status: Pending * Provider: Damian Rose, STEFANY Date: 1 01/22/2023 Generated for Satish benitez/Nicole/Ryan on: 0 02/06/2025 07:31 PM CDT
--- OUTSIDE RECORDS SUMMARY | 2025-02-06 19:31 | XMS_ITS ---
Author Organization [facility] Address [address] [place], [place] [id number] Care Team Providers Care Truck Operator Name Role Phone DANNY ROSE Unavailable [phone] Odin Alex Unavailable Unavailable REASON FOR VISIT post op w/ xray Medications Medication SIG (Take, Route, Frequency, Duration) Notes Start Date End Date Status terbinafine 250 MG Oral Tablet ORAL terbinafine 250 MG Oral TabletOriginal Medicationterbinafine 250 MG Oral Tablet *Reorder from [facility] for eRx and Interaction Alerts* 04/12/2021 Active Encounters Encounter Location Date Provider Diagnosis [facility] [place] [address] [place], [place] [id number] 12/12/2023 DANNY ROSE Other acute osteomyelitis, right ankle and foot M86.171 ; Pain in right foot M79.671 and Encounter for other specified surgical aftercare Z48.89 Assessments Encounter Date Diagnosis (ICD Code) Assessment Notes Treatment Notes Treatment Clinical Notes Section Notes 12/12/2023 Other acute osteomyelitis, right ankle and foot (ICD-10 - M86.171) 12/12/2023 Pain in right foot (ICD-10 - M79.671) 12/12/2023 Encounter for other specified surgical aftercare (ICD-10 - Z48.89) 12/12/2023 Other Suture Removal: The sutures were removed. Plan Of Treatment Treatment Notes Assessment Notes Other Suture Removal: The sutures were removed. Next Appt Details Provider Name:DANNY BELLO, 02/10/2025 11:10:00 AM, [address], [place], [place], [id number], Progress Notes * MESFIN CASTAÑEDA LDOB:1944 (79 yo M)Acc No.[id number]:12/12/2023 Patient: MESFIN HUGGINS Provider: Damian Rose DPM :1945 A ge:78 Y S ex:Male Date:12/12/2023 Address:[address] [place] [address] Subjective: * Chief Complaints: * P ost op w/ xray * ROS: G eneral / Constitutional: Patient denies c hills, fever. C ardiovascular: Patient denies c hest pain. * Medical History: * Surgical History: * Hospitalization/Major Diagno stic Procedure: * Medications: T akingterbinafine 250 MG Oral Tablet ORAL , Notes to Pharmacist: terbinafine 250 MG Oral TabletOriginal Medicationterbinafine 250 MG Oral Tablet *[facility]*Taking terbinafine 250 MG Oral Tablet ORAL , Notes to Pharmacist: terbinafine 250 MG Oral TabletOriginal Medicationterbinafine 250 MG Oral Tablet *[facility]* Objective: * Examination: P hysical Examination: Gen: T he patient is awake, alert, well developed, well groomed and well nourished. They are in no apparent distress. . Musc: T he pain is decreasing. Foot structure is normal. .? Derm: W ound clean and well approximated without drainage. Sutures are intact. . Neuro: G rossly intact to light touch bilateral. . Vasc: D orsalis pedis and posterior tibial pulses 2+ bilaterally. Edema consistent with post-operative course noted. Capillary fill time < 3 seconds to all digits. Negative Hans's sign . Dressing: D ressing has been replaced. ? X -Ray: RIGHT FOOT T here are no destructive bone changes, gas in the tissue or other signs of infection. . Assessment: * Assessment: 1. O ther acute osteomyelitis, right ankle and foot - M86.171 (Primary) 2 . P ain in right foot - M79.671 3 . E ncounter for other specified surgical aftercare - Z48.89 Plan: * Treatment: * Procedure Codes: 9 9024 POSTOP FOLLOW-UP [id number] X-RAY EXAM OF FOOT, Modifiers: RT * Billing Information: * Visit Code: * Procedure Codes: 15196 POSTOP FOLLOW-UP VISIT. 97669 X-RAY EXAM OF FOOT. Modifiers: RT * Sign off status: Completed true * Provider: Damian Rose DPM Date: 0 12/12/2023 Generated for Satish benitez/Nicole/Ryan on: 0 02/06/2025 07:31 PM CDT History and Physical Notes * Examination Category Sub-Category Detail Notes Category Not es X-Ray RIGHT FOOT There are no blanca tructive bone changes, gas in the tissue or other signs of infection. Physical Examination Gen: The patient is awake, alert, well developed, well groomed and well nourished. They are in no apparent distress. Vasc: Dorsalis pedis and p osterior tibial pulses 2+ bilaterally. Edema consistent with post-operative course noted. Capillary fill time < 3 seconds to all digits. Negative Hans's sign Neuro: Grossly intact to li ght touch bilateral. Musc: The pain is decreasi ng. Foot structure is normal. Dressing: Dressing has been re placed Derm: Wound clean and well approximated without drainage. Sutures are intact.
--- OUTSIDE RECORDS SUMMARY | 2025-02-06 19:31 | XMS_ITS | Referral Summary ---
Author Organization [facility] Address [address] [place] [address] Care Team Providers Care Railroad Surveyor Name Role Phone Odin Alex MD Primary Care Provider Gene De La Garza MD Unavailable [phone] Encounters Date Type Department Care Team Description 11/25/2024 7:55 AM KINDERGARTEN TEACHER - 11/26/2024 1:45 PM [facility] [[email or web address]] Hospital Encounter [address] [address] Gene De La Garza MD CAD (coronary artery disease) Discharge Disposition: Discharge to home or self care 11/25/2024 10:00 AM KINDERGARTEN TEACHER - 11/25/2024 12:00 PM [facility] [[email or web address]] Surgery [facility] Cardiac Catheterization Lab [address] [place] [id number] Gene De La Garza MD PCI SONIA MAJOR CORONARY C9600 - [id number] 11/18/2024 Orders Only [facility] Cardiac Catheterization Lab [address] [place] [id number] Gene De La Garza MD CAD (coronary [...] mg total) by mouth daily 1 Active valsartan-hydro chlorothiazide (DIOVAN-HCT) 320-25 mg per tablet Take 1 tablet by mouth daily 1 Active acetaminophen (TYLENOL) 325 mg tablet Take 2 tablets (650 mg total) by mouth every 6 (six) hours as needed for pain Active diphenhydrAMINE (BENADRYL) 25 mg capsule Take 1 tablet/capsule [...] 30 tablet 11 4 11/26/20 25 Active Active Problems Problem Noted Date Diagnosed Date Status post cardiac catheterization 11/25/2024 CAD (coronary artery disease) 11/18/2024 Hyperlipidemia 06/22/2019 Assessment & Plan (06/22/2019 1:15 PM CDT): On chronic lipid lowering therapy with good control. No changes made. 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 As long as they remain on this medication, an ECG will be performed every 6 months for monitoring. Assessment & Plan (12/24/2017 4:09 PM KINDERGARTEN TEACHER): 12-lead ECG today does not demonstrate any [...] Eliquis 5 mg twice daily.He has a CZR6IE1-DQVk score of 2, therefore it is recommended that he remain anticoagulated for thromboprophylaxis. Assessment & Plan (12/24/2017 4:10 PM KINDERGARTEN TEACHER): The patient has a YYK8EU0-SPJb score of 2 (annualized risk of stroke 2.2 %). I have therefore recommended that he remain anticoagulated for thromboprophylaxis. The patient will follow-up with me in 3-4 months for an office visit and twelve- lead ECG. Assessment & Plan (09/29/2017 2:05 PM CDT): The patient has a CJU4HV6-BGYt score of 2 (annualized risk of stroke 2.2 %). I have therefore recommended that he remain anticoagulated for thromboprophylaxis. He will follow-up with me 1 month after cardioversion. Assessment & Plan (07/27/2017 2:59 PM CDT): The patient has a VUK4SW0-PNTq score of 2 (annualized risk of stroke 2%). I have therefore recommended that he remain anticoagulated for thromboprophylaxis. The patient will follow up with me in 6 months, unless he has recurrence. Assessment & Plan (06/28/2017 2:51 PM CDT): The patient has a DIZ7EP3-BWXi score of 2 (annualized risk of stroke 2.2 %). I have therefore recommended that he remain anticoagulated for thromboprophylaxis. Permanent atrial fibrillation 07/24/2014 Overview (03/07/2017): Atrial fibrillation Assessment & Plan [...] EKG. Assessment & Plan (12/24/2017 4:09 PM KINDERGARTEN TEACHER): The patient is status post ablation for [...] current regimen. No change was made. Immunizations Immunization Administration Dates Next Due Influenza, Quadrivalent, Hig [...] on file Legal Sex Male 10:59 AM KINDERGARTEN TEACHER Gender Identity Male 12/28/2021 10:54 PM KINDERGARTEN TEACHER Sexual Orientation Straight 12/28/2021 10 :54 PM KINDERGARTEN TEACHER Last Filed Vital Signs Vital Sign Reading Time Taken Comments Blood Pressure 149/82 11/26/2024 12:09 PM KINDERGARTEN TEACHER Pulse 75 11/26/2024 12:09 PM KINDERGARTEN TEACHER Temperature 36.7 C (98 F) 11/26/2024 12:09 PM KINDERGARTEN TEACHER Respiratory Rate 20 11/26/2024 12:09 PM KINDERGARTEN TEACHER Oxygen Saturation 97% 11/26/2024 12:09 PM KINDERGARTEN TEACHER Inhaled Oxygen Concentration - - Weight 115.7 kg (255 lb) 11/25/2024 12:14 PM KINDERGARTEN TEACHER Height 182.9 cm (6') 11/25/2024 12:14 PM KINDERGARTEN TEACHER Body Mass Index 34.58 11/25/2024 12:14 PM KINDERGARTEN TEACHER Plan of Treatment Not on file Goals [...] needed Reduce the likelihood of falling Lifestyle Diana Barba RN Note: Below are four things you [...] stairs Contact your local community or senior center for information on exercise, fall prevention programs, or options for improving home safety. Medical Devices Implanted Type Area Chair Frame Builder Device Identifier Shelf Expiration Date Model / Serial / Lot [employer] Stent Coronary Drug Eluting Rapid Exchange Synergy Xd 3.83d38ri [place] [employer] [id number] - [id number] Implanted:Qty: 1 on 11/25/2024 by Gene De La Garza MD at [facility] [employer] 05/05/2026 [id number] / / [id number] Procedures Procedure Name Priority Date/Time Associated Diagnosis Comments EGFR Routine 11/26/2024 4:08 AM KINDERGARTEN TEACHER DIFFERENTIAL AUTO Routine 11/26/2024 4:0 8 AM KINDERGARTEN TEACHER CBC WITH AUTO DIFFERENTIAL Routine 11/26/2024 4:08 AM KINDERGARTEN TEACHER BASIC METABOLIC PANEL Routine 11/26/2024 4:08 AM KINDERGARTEN TEACHER CORONARY OCT, 1ST VESSEL Routine 11/25/2024 11:36 AM KINDERGARTEN TEACHER CAD (coronary artery disease) VASCULAR ACCESS US GUIDANCE Routine 11/25/2024 11:36 AM KINDERGARTEN TEACHER CAD (coronary artery disease) SONIA MAJOR CORONARY Routine 11/25/2024 11 :36 AM KINDERGARTEN TEACHER CAD (coronary artery disease) POCT ACTIVATED CLOTTING TIME, HIGH RANGE Routine 11/25/2024 11:19 AM KINDERGARTEN TEACHER MODERATE SEDATION FIRST 15MIN 5+ YEAR [address] 11/25/2024 10:13 AM KINDERGARTEN TEACHER CAD (coronary artery disease) EGFR Routine 11/25/2024 9:01 AM KINDERGARTEN TEACHER DIFFERENTIAL AUTO Routine 11/25/2024 9:0 1 AM KINDERGARTEN TEACHER COMPREHENSIVE METABOLIC PANEL Routine 11/25/2024 9:01 AM KINDERGARTEN TEACHER CBC WITH AUTO DIFFERENTIAL Routine 11/25/2024 9:01 AM KINDERGARTEN TEACHER CTA ABDOMEN PELVIS W WO CONTRAST Schedule Routine, Read Routine (OP Routine) 10/06/2023 1:35 PM KINDERGARTEN TEACHER Dissection of aorta, unspecified portion of aorta (HCC) from Last 3 Months or Most Recently Relevant to Health Maintenance Results * (ABNORMAL) eGFR (11/26/2024 4:08 AM KINDERGARTEN TEACHER) eGFR 51(L) >=60 mL/min/1. 73 m2 Comment: Interpretive Data Reference Interval Normal >/= 90 mL/min/1.73m2 Mildly decreased* 60 - 89 mL/min/1.73m2 Mildly to moderately decreased 45 - 59 mL/min/1.73m2 Moderately to severely decreased 30 - 44 mL/min/1.73m2 Severely decreased 15 - 29 mL/min/1.73m2 Kidney Failure < 15 mL/min/1.73m2 *Relative to young adult level Estimated glomerular [...] last reviewed 2021. Blood 11/26/2024 4:08 AM KINDERGARTEN TEACHER 11/26/2024 5:06 AM KINDERGARTEN TEACHER us Gene De La Garza MD LAB BLOOD ORDERABLES Final Resu lt [facility] [address] Department [place] [address] * Differential, auto (11/26/2024 4:08 AM KINDERGARTEN TEACHER) Neutrophil abs 6.0 1.5 - 6.5 K/cumm Imm gran abs 0.0 0.0 - 0.1 K/cumm [facility] Lymphocyte abs 1.9 0.8 - 3.3 K/cumm [facility] Monocyte abs 0.6 0.2 - 0.8 K/cumm [facility] Eosinophil abs 0.2 0.0 - 0.5 K/cumm [facility] Basophil abs 0.1 0.0 - 0.1 K/cumm [facility] Neutrophil pct 68.4 % [facility] Comment: Interpretive Data Percent cell count reference ranges are not reported, since discordance with absolute values may lead to misinterpretation of CBC data. Current Interpretive Data was last revised on 2018. Imm gran pct 0.5 % [facility] Comment: Interpretive Data Percent cell count reference ranges are not reported, since discordance with absolute values may lead to misinterpretation of CBC data. Current Interpretive Data was last revised on 2018. Lymphocyte pct 21.4 % [facility] Comment: Interpretive Data Percent cell count reference ranges are not reported, since discordance with absolute values may lead to misinterpretation of CBC data. Current Interpretive Data was last revised on 2018. Monocyte pct 6.9 % [facility] Comment: Interpretive Data Percent cell count reference ranges are not reported, since discordance with absolute values may lead to misinterpretation of CBC data. Current Interpretive Data was last revised on 2018. Eosinophil pct 1.8 % [facility] Comment: Interpretive Data Percent cell count reference ranges are not reported, since discordance with absolute values may lead to misinterpretation of CBC data. Current Interpretive Data was last revised on 2018. Basophil pct 1.0 % [facility] Comment: Interpretive Data Percent cell count reference ranges are not reported, since discordance with absolute values may lead to misinterpretation of CBC data. Current Interpretive Data was last revised on 2018. Blood 11/26/2024 4:08 AM KINDERGARTEN TEACHER 11/26/2024 5:03 AM KINDERGARTEN TEACHER us Gene De La Garza MD LAB BLOOD ORDERABLES Final Resu lt [facility] [address] Department [place] [address] * (ABNORMAL) CBC with auto differential (11/26/2024 4:08 AM KINDERGARTEN TEACHER) WBC 8.8 3.8 - 9.9 K/cumm Hgb 14.7 13.0 - 17.5 g/dL [facility] Hct 46.4 38.9 - 50.3 % [facility] CH Plt 184 150 - 400 K/cumm [facility] MPV 9.6 9.1 - 12.3 fL [facility] RBC 4.74 4.30 - 5.80 M/cumm [facility] MCV 97.9(H) 81.3 - 96.4 fL [facility] MCH 31.0 27.1 - 33.3 pg [facility] MCHC 31.7(L) 32.3 - 35.7 g/dL [facility] RDW CV 15.1(H) 11.1 - 14.9 % [facility] RDW SD 55.0(H) 35.7 - 48.1 fL [facility] NRBC abs 0.00 0.00 - 0.01 K/cumm [facility] Blood 11/26/2024 4:08 AM KINDERGARTEN TEACHER 11/26/2024 5:03 AM KINDERGARTEN TEACHER us Gene De La Garza MD LAB BLOOD ORDERABLES Final Resu lt [facility] [address] Department [place] [address] * (ABNORMAL) Basic metabolic panel (11/26/2024 4:08 AM KINDERGARTEN TEACHER) Sodium 137 135 - 145 mmol/L Potassium, pl 4.5 3.3 - 4.9 mmol/L [facility] Chloride 101 97 - 110 mmol/L [facility] CO2 24 22 - 32 mmol/L [facility] Anion gap 12 2 - 15 mmol/L [facility] BUN 37(H) 6 - 25 mg/dL [facility] Creatinine 1.42(H) 0.80 - 1.30 mg/dL [facility] Glucose 110 70 - 199 mg/dL [facility] Comment: Interpretive Data Fasting glucose >/= 126 mg/dl is diagnostic for diabetes. Fasting is defined as no caloric intake [...] 2022. Calcium 9.5 8.5 - 10.3 mg/dL [facility] ARANA Blood 11/26/2024 4:08 AM KINDERGARTEN TEACHER 11/26/2024 5:06 AM KINDERGARTEN TEACHER Gene De La Garza MD LAB BLOOD ORDERABLES Final Resu lt [facility] [address] Department [place] [address] * SONIA MAJOR CORONARY, VASCULAR ACCESS US GUIDANCE, CORONARY OCT, 1ST VESSEL (11/25/2024 11:36 AM KINDERGARTEN TEACHER) Anatomical Region Laterality Modality X-Ray Angiograph y Narrative 11/25/2024 11:54 AM KINDERGARTEN TEACHER Table formatting from the original result was not included. PCI SONIA MAJOR CORONARY C9600 - 49533, MODERATE SEDATION FIRST 15MIN 5+ YEAR , ULTRASOUND GUIDANCE FOR VASCULAR ACCESS S&I 21780, IVUS/OCT CORS OR GRAFTS, FIRST VESSEL (+) [id number] Brief Op Note Attending Entertainment Musician: Gene De La Garza MD Primary: Gene De La Garza MD CV Documenter: Ilene Chaves, OLYA CV Scrub: Carolyn Cole RT; Layo Cerrato CV Supply Manager: Halley Pro; Sweetie Lee RN Date of Procedure: 11/25/2024 Specimens: No specimen collected in procedure Preoperative Diagnosis: Pre-op Diagnosis * CAD (coronary artery disease) [I25.10] Postoperative Diagnosis: Post-op Diagnosis * CAD (coronary artery disease) [I25.10] Name of Procedure: Procedure(s): PCI SONIA MAJOR CORONARY C9600 - 01785 MODERATE SEDATION FIRST 15MIN 5+ YEAR [address] ULTRASOUND GUIDANCE FOR VASCULAR ACCESS S&I 82068 IVUS/OCT CORS OR GRAFTS, FIRST VESSEL (+) [id number] Implants: Implant Name Type Inv. Item Serial No. Chair Frame Builder Lot No. LRB No. Used Action [employer] Stent Coronary Drug Eluting Rapid Exchange Synergy Xd [id number] [place] [employer] [id number] - [id number] [employer] Stent Coronary Drug Eluting Rapid Exchange Synergy Xd [id number] [place] Chrom[employer] [id number] [employer] [id number] N/A 1 Implanted Cardiac catheterization procedure report summary Clinical history: 79-year-old gentleman with angina event stress test which was demonstrating anterior ischemia underwent cardiac catheterization by Dr. Chay Valentin, it demonstrated severe LAD lesion in proximal segment involving the bifurcation of diagonal and large septal lock fitter. Patient has been scheduled for PCI with me. PCI INDICATIONS Stable Angina PCI STATUS [x] Elective [] Urgent [] Emergency [] Salvage CARDIOVASCULAR INSTABILITY [] Persistent Ischemic Symptoms (Chest Pain, STEMI) [] Hemodynamic Instability [] Ventricular Arrhythmias [] Acute Heart Failure [] Cardiogenic Shock [] Salvage or Refractory Cardiogenic Shock CARDIAC ARREST [] NO [] YES AND RESPONSIVE [] YES AND UNRESPONSIVE FRAILTY [] Moderately Frail [] Severely Frail [] Very Severely Frail [] Terminally Ill OTHER PATIENT CHARACTERISTICS [] At Least Moderate Aortic Stenosis [] Surgical Turn Down CONGESTIVE HEART FAILURE (NYHA Classification) [] I [] II [] III [] IV STRESS TEST: EXTENT OF ISCHEMIA [] Low Risk (<1% annual risk of or GA) [] Intermediate Risk (1-3% annual risk of or GA [x] High Risk (>3% annual risk of or GA) 5. Stress-induced perfusion abnormalities encumbering >=10% myocardium or stress segmental scores indicating multiple vascular territories with abnormalities LESION CHARACTERISTICS (HIGH RISK Type C LESIONS) [] Diffuse Length (> 2 cm) [] Excessive Tortuosity of Proximal Segment [] Extremely Angulated Segments > 90 degrees [x] Bifurcation Lesion (with the inability to protect major side branches) [] Degenerated Vein Grafts with Friable Segments [] Chronic Total Occlusion (> 3 mos) and/or bridging collaterals OTHER HIGH RISK CHARACTERISTICS [] In-Stent Thrombosis [] Heavily Calciified [x] High Risk Coronary Segment (LEFT MAIN OR PROX LAD) Procedure: Intravascular ultrasound of LAD Drug-eluting stent placement in the LAD Vascular Access: Right Radial approach Catheters: Intervention: XB 3.5 guide offered moderate support Moderate sedation: Moderate sedation was administered by me, with continuous monitoring of the patient by the physician/qualified nurse who was present throughout the duration of the procedure. For preservice and post-service documentation please refer to procedure log. Intraservice time for moderate sedation start 1042 end 1136 2 mg Versed and 75 mcg fentanyl Search Developer: Gene De La Garza MD Procedure summary: Informed consent of the patient was obtained. Risks discussed include but are not limited to [...] anesthesia with 2 cc Xylocaine 1% given. Right Radial artery was used for access. Ultrasound evaluation done for possible access site, patent vessel observed, real-time visualization of vascular needle entry done during access, and images were stored on the machine as permanent record. 6F slender sheath was inserted. XB 3 5 guide was engaged in standard fashion. Blue wire was used to cross the LAD lesion and black wire was placed into the diagonal branch. Pre-dilated the lesion with 2.5 balloon and subsequently intravascular ultrasound done demonstrated reference vessel of 3.5 mm distal to bifurcation, loli did not involve any significant ostial disease in the diagonal and therefore we felt major protection is not needed for this branch and definitely does not need bifurcation PCI. Subsequently we went with 3.5 NC balloon and pre-dilated the lesion. We advanced wolverine cutting balloon however it would not cross. We advanced GuideLiner and still cutting balloon would not cross and therefore we went back with 3.5 NC balloon and further pre-dilated and advanced the GuideLiner beyond the lesion and then unsheathed at 3.5X16 synergy stent. Postdilated with 3.5 NC balloon and proximal segment was post dilated with 4 mm balloon. Good angiographic result LINDEN 3 flow without any significant residual stenosis without any plaque shift into diagonal or septal lock fitter. Patient tolerated the procedure well symptomatically. No postprocedure complication, estimated blood loss 5 cc. Catheter was removed and TR band was applied achieving hemostasis. Impression: Successful PCI of 80% proximal LAD stenosis involving diagonal and large septal lock fitter trifurcation with 3.5X16 synergy SONIA post dilated proximally with 4.0 NC balloon. Recommendations: ASA 81 mg for life long. High Intensity statin therapy. Aggressive risk factor modification. Brilinta 90 mg b.i.d.. Patient is on apixaban at home. Can consider resuming it after 1 month of DAPT. Gene De La Garza MD Date: 11/25/2024 Time: 11:49 AM Gene De La Garza MD CV CARDIAC CATH PROCEDURES Blanche l Result * (ABNORMAL) POC Activated Clotting Time, High Range (11/25/2024 11:19 AM KINDERGARTEN TEACHER) ACT 239(H) 87 - 138 sec Blood 11/25/2024 11:1 9 AM KINDERGARTEN TEACHER 11/25/2024 11:19 AM KINDERGARTEN TEACHER Gene De La Garza MD LAB BLOOD ORDERABLES Final Resu lt [facility] [address] Department [place] [address] * (ABNORMAL) eGFR (11/25/2024 9:01 AM KINDERGARTEN TEACHER) eGFR 56(L) >=60 mL/min/1. 73 m2 Comment: Interpretive Data Reference Interval Normal >/= 90 mL/min/1.73m2 Mildly decreased* 60 - 89 mL/min/1.73m2 Mildly to moderately decreased 45 - 59 mL/min/1.73m2 Moderately to severely decreased 30 - 44 mL/min/1.73m2 Severely decreased 15 - 29 mL/min/1.73m2 Kidney Failure < 15 mL/min/1.73m2 *Relative to young adult level Estimated glomerular [...] last reviewed 2021. Blood 11/25/2024 9:01 AM KINDERGARTEN TEACHER 11/25/2024 9:05 AM KINDERGARTEN TEACHER us Gene De La Garza MD LAB BLOOD ORDERABLES Final Resu lt [facility] [address] Department [place] [address] * Differential, auto (11/25/2024 9:01 AM KINDERGARTEN TEACHER) Neutrophil abs 6.4 1.5 - 6.5 K/cumm Imm gran abs 0.1 0.0 - 0.1 K/cumm [facility] Lymphocyte abs 1.8 0.8 - 3.3 K/cumm [facility] Monocyte abs 0.6 0.2 - 0.8 K/cumm [facility] Eosinophil abs 0.1 0.0 - 0.5 K/cumm [facility] Basophil abs 0.1 0.0 - 0.1 K/cumm [facility] Neutrophil pct 70.9 % [facility] Comment: Interpretive Data Percent cell count reference ranges are not reported, since discordance with absolute values may lead to misinterpretation of CBC data. Current Interpretive Data was last revised on 2018. Imm gran pct 0.7 % [facility] Comment: Interpretive Data Percent cell count reference ranges are not reported, since discordance with absolute values may lead to misinterpretation of CBC data. Current Interpretive Data was last revised on 2018. Lymphocyte pct 19.3 % [facility] Comment: Interpretive Data Percent cell count reference ranges are not reported, since discordance with absolute values may lead to misinterpretation of CBC data. Current Interpretive Data was last revised on 2018. Monocyte pct 6.7 % [facility] Comment: Interpretive Data Percent cell count reference ranges are not reported, since discordance with absolute values may lead to misinterpretation of CBC data. Current Interpretive Data was last revised on 2018. Eosinophil pct 1.5 % [facility] Comment: Interpretive Data Percent cell count reference ranges are not reported, since discordance with absolute values may lead to misinterpretation of CBC data. Current Interpretive Data was last revised on 2018. Basophil pct 0.9 % [facility] Comment: Interpretive Data Percent cell count reference ranges are not reported, since discordance with absolute values may lead to misinterpretation of CBC data. Current Interpretive Data was last revised on 2018. Blood 11/25/2024 9:01 AM KINDERGARTEN TEACHER 11/25/2024 9:01 AM KINDERGARTEN TEACHER Gene De La Garza MD LAB BLOOD ORDERABLES Final Resu lt Performing Organization Address [facility]/ZIP Co de Phone Number [facility]ON[facility] ARANA [address] [place] [address] * (ABNORMAL) CBC with auto differential (11/25/2024 9:01 AM KINDERGARTEN TEACHER) WBC 9.1 3.8 - 9.9 K/cumm Hgb 14.1 13.0 - 17.5 g/dL [facility] Hct 43.3 38.9 - 50.3 % [facility] Plt 190 150 - 400 K/cumm [facility] MPV 9.0(L) 9.1 - 12.3 fL [facility] RBC 4.55 4.30 - 5.80 M/cumm [facility] MCV 95.2 81.3 - 96.4 fL [facility] MCH 31.0 27.1 - 33.3 pg [facility] MCHC 32.6 32.3 - 35.7 g/dL [facility] CH RDW CV 14.9 11.1 - 14.9 % [facility] CH RDW SD 52.1(H) 35.7 - 48.1 fL [facility] NRBC abs 0.00 0.00 - 0.01 K/cumm [facility] Blood 11/25/2024 9:01 AM KINDERGARTEN TEACHER 11/25/2024 9:01 AM KINDERGARTEN TEACHER Gene De La Garza MD LAB BLOOD ORDERABLES Final Resu lt Performing Organization Address [facility] Co de Phone Number LEONID ARANA [address] [place] [address] * (ABNORMAL) Comprehensive metabolic panel (11/25/2024 9:01 AM KINDERGARTEN TEACHER) Sodium 141 135 - 145 mmol/L Potassium, [...] >/= 126 mg/dl is diagnostic for diabetes. Fasting is defined as no caloric intake [...] Units/L [facility] Blood 11/25/2024 9:01 AM KINDERGARTEN TEACHER 11/25/2024 9:01 AM KINDERGARTEN TEACHER us Gene De La Garza MD LAB BLOOD ORDERABLES Final Resu lt [facility] [place] [place] [address] * CTA Abdomen Pelvis (10/06/2023 1:35 PM KINDERGARTEN TEACHER) Anatomical Region Laterality Modality Body N/A Computed Tomogra phy 10/06/2023 2:15 PM KINDERGARTEN TEACHER Impressions 10/07/2023 1:05 PM KINDERGARTEN TEACHER IMPRESSION: 1. Stable small infrarenal penetrating atherosclerotic ulcers. No abdominal aortic aneurysm or evidence of instability. 2. Morphologic features of hepatic fibrosis. Dictated by: Melonie Rodriguez M.D. The radiology attending physician has personally reviewed this study, and had reviewed and/or edited this written report and agrees with it. Electronically signed by: Cuauhtemoc Otero M.D. Narrative 10/07/2023 1:05 PM KINDERGARTEN TEACHER EXAMINATION: CT ANGIOGRAPHY OF THE ABDOMEN AND [...] Most Recently Relevant to Health Maintenance Insurance [facility] MEDICARE AET MEDICARE [facility] MEDICARE Advance Directives For more information, please contact: [phone] * Full Code (Latest Code Status on File) Date Activated Date Inactivated Comments 11/25/2024 11:59 AM 11/26/2024 5:49 PM Care Teams Railroad Surveyor Relationship Specialty Start Date End Date Odin Alex MD PCP - General 02/28/17 Gene De La Garza MD [address] [place] [address] Consulting Physician Cardiology 11/26/24
--- OUTSIDE RECORDS SUMMARY | 2025-02-06 19:31 | XMS_ITS ---
Author Organization [facility] Address [address] [place], [place] [id number] Care Team Providers Care Machine Sneller Name Role Phone MARIE DANNY Unavailable [phone] Odin Alex Unavailable Unavailable REASON FOR VISIT Post-op w/xrays Medications Medication SIG (Take, Route, Frequency, Duration) Notes Start Date End Date Status terbinafine 250 MG Oral Tablet ORAL terbinafine 250 MG Oral TabletOriginal Medicationterbinafine 250 MG Oral Tablet *Reorder from [employer] for eRx and Interaction Alerts* 04/12/2021 Active Amoxicillin-Pot Clavulanate 875-125 MG 1 tablet Orally every 12 hrs for 10 day(s) 4 Active Vital Signs Height 73.00 in 11/28/2023 Weight 225 lbs 11/28/2023 BMI 29.68 kg/m2 11/28/2023 Height-cm 185.42 cm 11/28/2023 Weight-kg 102.06 kg 11/28/2023 Encounters Encounter Location Date Provider Diagnosis [facility] [address] [place], [place] [id number] 11/28/2023 DANNY ROSE Other acute osteomyelitis, right ankle and foot M86.171 ; Pain in right foot M79.671 and Encounter for other specified surgical aftercare Z48.89 Assessments Encounter Date Diagnosis (ICD Code) Assessment Notes Treatment Notes Treatment Clinical Notes Section Notes 11/28/2023 Other acute osteomyelitis, right ankle and foot (ICD-10 - M86.171) 11/28/2023 Pain in right foot (ICD-10 - M79.671) 11/28/2023 Encounter for other specified surgical aftercare (ICD-10 - Z48.89) 11/28/2023 Other Dressing Change : The old dressing was removed. Utilizing aseptic technique, a new sterile compression dressing was applied. Patient was instructed to keep it dry and not remove it. Plan Of Treatment Medication Medication Name Sig Start Date Stop Date Notes Amoxicillin-Pot Clavulanate 875-125 MG 1 tablet Orally every 12 hrs for 10 day(s) 12/08/2023 Treatment Notes Assessment Notes Other Dressing Change: The old dressing was removed. Utilizing aseptic technique, a new sterile compression dressing was applied. Patient was instructed to keep it dry and not remove it. Next Appt Details Provider Name:DANNY BELLO, 02/10/2025 11:10:00 AM, [address], [facility], [place], [place], [id number], Progress Notes * MESFIN CASTAÑEDA LDOB:1944 (79 yo M)Acc No.[id number]:11/28/2023 Patient: Irineo MESFIN RAMIREZ L Provider: Damian Rose DPM :1945 A ge:78 Y S ex:Male Date:11/28/2023 Address:[address] [place] [address] Subjective: * Chief Complaints: * P ost-op w/xrays * HPI: H PI: Follow Up Visit P atient presents for follow-up visit for surgery on his right 2nd digit. Patient states his bandage came off the 2nd day, but he rewrapped it. He hasn't had any pain or other problems. Patient states their problem is improving. MA: sea.? * ROS: G eneral / Constitutional: Patient denies c hills, fever. C ardiovascular: Patient denies c hest pain. * Medical History: * Surgical History: * Hospitalization/Major Diagno stic Procedure: * Family History: F ather: PRN - Father: :: Cancer,,known absent . M other: PRN - Mother: :: Hypertension,,known absent , :: Arthritis,,known absent . B brandon: SIB - Brother: . S ister: SIB - Sister: :: Hypertension,,known absent , :: Cancer,,known absent , , :: Arthritis,,known absent , :: Diabetes,,known absent . * Social History: M igrated Social History: M igrated Social History: Alcohol intake : , History of tobacco use : , Smoking Status : Never smoked. * Medications: T akingterbinafine 250 MG Oral Tablet ORAL , Notes to Pharmacist: terbinafine 250 MG Oral TabletOriginal Medicationterbinafine 250 MG Oral Tablet *Reorder from [facility] for eRx and Interaction Alerts*Amoxicillin-Pot Clavulanate 875-125 MG Tablet 1 tablet Orally every 12 hrs Taking terbinafine 250 MG Oral Tablet ORAL , Notes to Pharmacist: terbinafine 250 MG Oral TabletOriginal Medicationterbinafine 250 MG Oral Tablet *[facility] Interaction Alerts*Taking Amoxicillin-Pot Clavulanate 875-125 MG Tablet 1 tablet Orally every 12 hrs Objective: * Vitals: W t: 225 lbs, Wt-k.06 kg, Ht: 73.00 in, Ht-cm: 185.42 cm, BMI: 29.68 Index, Body Surface Area: 2.29. * Examination: P hysical Examination: Gen: T [...] * Procedure Codes: 9 9024 POSTOP FOLLOW-UP [id number] X-RAY EXAM OF FOOT, Modifiers: RT * Billing Information: * Visit Code: * Procedure Codes: 26518 POSTOP FOLLOW-UP VISIT. 85532 X-RAY EXAM OF FOOT. Modifiers: RT * Sign off status: Completed true * Provider: Damian Rose DPM Date: Generated for Satish benitez/Nicole/Yahiritting on: 0 02/06/2025 07:31 PM CDT History and Physical Notes * HPI (History of Present Illness) Category Sub-Category Detail Notes Category Not es HPI Follow Up Visit Patient presents for follow-up visit for surgery on his right 2nd digit. Patient states his bandage came off the 2nd day, but he rewrapped it. He hasn't had any pain or other problems. Patient states their problem is improving. MA: sea Examination Category Sub-Category Detail Notes Category Not [...]
--- OUTSIDE RECORDS SUMMARY | 2025-02-06 19:31 | XMS_ITS | Clinical Summary ---
Author Organization [facility] Address [address] [place] [address] Care Team Providers Care Bulk Materials Handling Plant Operator Name Role Phone Odin Alex MD Primary Care Provider Gene De La Garza MD Unavailable [phone] Allergies No known active allergies Medications [...] daily 30 tablet 4 11/26/20 25 Active clopidogreL (PLAVIX) 75 mg tablet Take 1 tablet (75 mg total) by mouth daily 30 tablet 4 11/26/20 25 Active Active Problems Problem Noted Date Diagnosed Date Status post cardiac catheterization 11/25/2024 CAD (coronary artery disease) 11/18/2024 Hyperlipidemia 06/22/2019 Assessment & Plan (06/22/2019 1:15 PM CDT): On chronic lipid lowering therapy with good control. No changes made. 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 As long as they remain on this medication, an ECG will be performed every 6 months for monitoring. Assessment & Plan (12/24/2017 4:09 PM CERTIFIED MEETING PROFESSIONAL): 12-lead ECG today does not demonstrate any [...] Eliquis 5 mg twice daily.He has a QBI5PL6-HKGc score of 2, therefore it is recommended that he remain anticoagulated for thromboprophylaxis. Assessment & Plan (12/24/2017 4:10 PM CERTIFIED MEETING PROFESSIONAL): The patient has a THM7FP2-RVZs score of 2 (annualized risk of stroke 2.2 %). I have therefore recommended that he remain anticoagulated for thromboprophylaxis. The patient will follow-up with me in 3-4 months for an office visit and twelve- lead ECG. Assessment & Plan (09/29/2017 2:05 PM CDT): The patient has a HTE4BK0-CLDw score of 2 (annualized risk of stroke 2.2 %). I have therefore recommended that he remain anticoagulated for thromboprophylaxis. He will follow-up with me 1 month after cardioversion. Assessment & Plan (07/27/2017 2:59 PM CDT): The patient has a TYL4CB9-YDLv score of 2 (annualized risk of stroke 2%). I have therefore recommended that he remain anticoagulated for thromboprophylaxis. The patient will follow up with me in 6 months, unless he has recurrence. Assessment & Plan (06/28/2017 2:51 PM CDT): The patient has a JNJ4JA7-UOOj score of 2 (annualized risk of stroke [...] EKG. Assessment & Plan (12/24/2017 4:09 PM CERTIFIED MEETING PROFESSIONAL): The patient is status post ablation for [...] Department Care Team Description 11/25/2024 10:00 AM CERTIFIED MEETING PROFESSIONAL - 11/25/2024 12:00 PM CERTIFIED MEETING PROFESSIONAL Surgery [facility] Cardiac Catheterization Lab [address] [place] [address] Gene De La Garza MD PCI SONIA MAJOR CORONARY C9600 - 30392 11/25/2024 7:55 AM CERTIFIED MEETING PROFESSIONAL - 11/26/2024 1:45 PM CERTIFIED MEETING PROFESSIONAL Hospital Encounter [address] [address] Gene De La Garza MD CAD (coronary artery disease) Discharge Disposition: Discharge to home or self care 11/18/2024 Orders Only [facility] Cardiac Catheterization [facility] [address] [place] [address] Gene De La Garza MD CAD (coronary artery disease) (Primary Dx) from Last 3 Months Immunizations Immunization Administration Dates Next Due Influenza, [...] Medical Esophageal refl ux Hyperlipidemia Atrial fibrillation (HCC) Cancer (HCC) COPD (chronic obstructive pu lmonary disease) (HCC) Osteoarthritis Low back pain Chronic pain disorder CHF (congestive heart failure) (HCC) Lung disease GERD (gastroesophageal reflux disease) [...] on file Legal Sex Male 10:59 AM CERTIFIED MEETING PROFESSIONAL Gender Identity Male 12/28/2021 10:54 PM CERTIFIED MEETING PROFESSIONAL Sexual Orientation Straight 12/28/2021 10 :54 PM CERTIFIED MEETING PROFESSIONAL Obstetrics History Last Filed Vital Signs Vital Sign Reading Time Taken Comments Blood Pressure 149/82 11/26/2024 12:09 PM CERTIFIED MEETING PROFESSIONAL Pulse 75 11/26/2024 12:09 PM CERTIFIED MEETING PROFESSIONAL Temperature 36.7 C (98 F) 11/26/2024 12:09 PM CERTIFIED MEETING PROFESSIONAL Respiratory Rate 20 11/26/2024 12:09 PM CERTIFIED MEETING PROFESSIONAL Oxygen Saturation 97% 11/26/2024 12:09 PM CERTIFIED MEETING PROFESSIONAL Inhaled Oxygen Concentration - - Weight 115.7 kg (255 lb) 11/25/2024 12:14 PM CERTIFIED MEETING PROFESSIONAL Height 182.9 cm (6') 11/25/2024 12:14 PM CERTIFIED MEETING PROFESSIONAL Body Mass Index 34.58 11/25/2024 12:14 PM CERTIFIED MEETING PROFESSIONAL Plan of Treatment Health Maintenance Due Date [...] home safety. Medical Devices Implanted Type Area Commercial Credit Head Device Identifier Shelf Expiration Date Model / Serial / Lot [employer] Stent Coronary Drug Eluting Rapid Exchange Synergy Xd [id number] [place] Chromium [id number] - [id number] Implanted:Qty: 1 on 11/25/2024 by Gene De La Garza MD at [facility] [employer] 05/05/2026 [id number] / / [id number] Procedures Procedure Name Priority Date/Time Associated Diagnosis Comments EGFR Routine 11/26/2024 4:08 AM CERTIFIED MEETING PROFESSIONAL DIFFERENTIAL AUTO Routine 11/26/2024 4:0 8 AM CERTIFIED MEETING PROFESSIONAL CBC WITH AUTO DIFFERENTIAL Routine 11/26/2024 4:08 AM CERTIFIED MEETING PROFESSIONAL BASIC METABOLIC PANEL Routine 11/26/2024 4:08 AM CERTIFIED MEETING PROFESSIONAL CORONARY OCT, 1ST VESSEL Routine 11/25/2024 11:36 AM CERTIFIED MEETING PROFESSIONAL CAD (coronary artery disease) VASCULAR ACCESS US GUIDANCE Routine 11/25/2024 11:36 AM CERTIFIED MEETING PROFESSIONAL CAD (coronary artery disease) SONIA MAJOR CORONARY Routine 11/25/2024 11 :36 AM CERTIFIED MEETING PROFESSIONAL CAD (coronary artery disease) POCT ACTIVATED CLOTTING TIME, HIGH RANGE Routine 11/25/2024 11:19 AM CERTIFIED MEETING PROFESSIONAL MODERATE SEDATION FIRST 15MIN 5+ YEAR [address] 11/25/2024 10:13 AM CERTIFIED MEETING PROFESSIONAL CAD (coronary artery disease) EGFR Routine 11/25/2024 9:01 AM CERTIFIED MEETING PROFESSIONAL DIFFERENTIAL AUTO Routine 11/25/2024 9:0 1 AM CERTIFIED MEETING PROFESSIONAL COMPREHENSIVE METABOLIC PANEL Routine 11/25/2024 9:01 AM CERTIFIED MEETING PROFESSIONAL CBC WITH AUTO DIFFERENTIAL Routine 11/25/2024 9:01 AM CERTIFIED MEETING PROFESSIONAL CTA ABDOMEN PELVIS W WO CONTRAST Schedule Routine, Read Routine (OP Routine) 10/06/2023 1:35 PM CERTIFIED MEETING PROFESSIONAL Dissection of aorta, unspecified portion of aorta (HCC) from Last 3 Months or Most Recently Relevant to Health Maintenance Results * (ABNORMAL) eGFR (11/26/2024 4:08 AM CERTIFIED MEETING PROFESSIONAL) eGFR 51(L) >=60 mL/min/1. 73 m2 Comment: [...] last reviewed 2021. Blood 11/26/2024 4:08 AM CERTIFIED MEETING PROFESSIONAL 11/26/2024 5:06 AM CERTIFIED MEETING PROFESSIONAL us Gene De La Garza MD LAB BLOOD ORDERABLES Final Resu lt [facility] [address] Department [place] [address] * Differential, auto (11/26/2024 4:08 AM CERTIFIED MEETING PROFESSIONAL) Neutrophil abs 6.0 1.5 - 6.5 K/cumm Imm gran abs 0.0 0.0 - 0.1 K/cumm [facility] Lymphocyte abs 1.9 0.8 - 3.3 K/cumm [facility] Monocyte abs 0.6 0.2 - 0.8 K/cumm [facility] Eosinophil abs 0.2 0.0 - 0.5 K/cumm [facility] Basophil abs 0.1 0.0 - 0.1 K/cumm [facility] Neutrophil pct 68.4 % [facility] Comment: Interpretive Data Percent cell count reference ranges are not reported, since discordance with absolute values may lead to misinterpretation of CBC data. Current Interpretive Data was last revised on 2018. Imm gran pct 0.5 % [facility] Comment: Interpretive Data Percent cell count reference ranges are not reported, since discordance with absolute values may lead to misinterpretation of CBC data. Current Interpretive Data was last revised on 2018. Lymphocyte pct 21.4 % [facility] Comment: Interpretive Data Percent cell count reference ranges are not reported, since discordance with absolute values may lead to misinterpretation of CBC data. Current Interpretive Data was last revised on 2018. Monocyte pct 6.9 % [facility] Comment: Interpretive Data Percent cell count reference ranges are not reported, since discordance with absolute values may lead to misinterpretation of CBC data. Current Interpretive Data was last revised on 2018. Eosinophil pct 1.8 % [facility] Comment: Interpretive Data Percent cell count reference ranges are not reported, since discordance with absolute values may lead to misinterpretation of CBC data. Current Interpretive Data was last revised on 2018. Basophil pct 1.0 % [facility] Comment: Interpretive Data Percent cell count reference ranges are not reported, since discordance with absolute values may lead to misinterpretation of CBC data. Current Interpretive Data was last revised on 2018. Blood 11/26/2024 4:08 AM CERTIFIED MEETING PROFESSIONAL 11/26/2024 5:03 AM CERTIFIED MEETING PROFESSIONAL us Gene De La Garza MD LAB BLOOD ORDERABLES Final Resu lt [facility] [address] Department [place] [address] * (ABNORMAL) CBC with auto differential (11/26/2024 4:08 AM CERTIFIED MEETING PROFESSIONAL) WBC 8.8 3.8 - 9.9 K/cumm Hgb [...] K/cumm [facility] Blood 11/26/2024 4:08 AM CERTIFIED MEETING PROFESSIONAL 11/26/2024 5:03 AM CERTIFIED MEETING PROFESSIONAL us Gene De La Garza MD LAB BLOOD ORDERABLES Final Resu lt [facility] [address] Department [place] [address] * (ABNORMAL) Basic metabolic panel (11/26/2024 4:08 AM CERTIFIED MEETING PROFESSIONAL) Sodium 137 135 - 145 mmol/L Potassium, pl 4.5 3.3 - 4.9 mmol/L [facility] Chloride 101 97 - 110 mmol/L [facility] CO2 24 22 - 32 mmol/L [facility] Anion gap 12 2 - 15 mmol/L [facility] BUN 37(H) 6 - 25 mg/dL [facility] Creatinine 1.42(H) 0.80 - 1.30 mg/dL [facility] Glucose 110 70 - 199 mg/dL [facility] Comment: Interpretive Data Fasting [...] mg/dL [facility] Blood 11/26/2024 4:08 AM CERTIFIED MEETING PROFESSIONAL 11/26/2024 5:06 AM CERTIFIED MEETING PROFESSIONAL Gene De La Garza MD LAB BLOOD ORDERABLES Final Resu lt [facility] [address] Department [place] [address] * SONIA MAJOR CORONARY, VASCULAR ACCESS US GUIDANCE, CORONARY OCT, 1ST VESSEL (11/25/2024 11:36 AM CERTIFIED MEETING PROFESSIONAL) Anatomical Region Laterality Modality X-Ray Angiograph y Narrative 11/25/2024 11:54 AM CERTIFIED MEETING PROFESSIONAL Table formatting from the original result was not included. PCI SONIA MAJOR CORONARY C9600 - 62201, MODERATE SEDATION FIRST 15MIN 5+ YEAR , ULTRASOUND GUIDANCE FOR VASCULAR ACCESS S&I 55083, IVUS/OCT CORS OR GRAFTS, FIRST VESSEL (+) [id number] Brief Op Note Attending Forest Engineer: Gene De La Garza MD Primary: Gene De La Garza MD CV Documenter: Ilene Chaves, OLYA CV Scrub: Carolyn Cole RT; Layo Cerrato CV Unit Clerk: Halley Pro; Sweetie Lee RN Date of Procedure: 11/25/2024 Specimens: No specimen collected in procedure Preoperative Diagnosis: Pre-op Diagnosis * CAD (coronary artery disease) [I25.10] Postoperative Diagnosis: Post-op Diagnosis * CAD (coronary artery disease) [I25.10] Name of Procedure: Procedure(s): PCI SONIA MAJOR CORONARY C9600 - 97735 MODERATE SEDATION FIRST 15MIN 5+ YEAR [address]214 ULTRASOUND GUIDANCE FOR VASCULAR ACCESS S&I 48913 IVUS/OCT CORS OR GRAFTS, FIRST VESSEL (+) [id number] Implants: Implant Name Type Inv. Item Serial No. Commercial Credit Head Lot No. LRB No. Used Action [id number] Stent Coronary Drug Eluting Rapid Exchange Synergy Xd [id number] [place] [employer] [id number] - [id number] Stent Coronary Drug Eluting Rapid Exchange Synergy Xd [id number] [place] [employer] [id number] [employer] [id number] N/A 1 Implanted Cardiac catheterization procedure report summary Clinical history: 79-year-old gentleman with angina event stress test which was demonstrating anterior ischemia underwent cardiac catheterization by Dr. Chay Valentin, it demonstrated severe LAD lesion in proximal segment involving the bifurcation of diagonal and large septal signs and displays salesperson. Patient has been scheduled for PCI with [...] Low Risk (<1% annual risk of or MO) [] Intermediate Risk (1-3% annual risk of or MO [x] High Risk (>3% annual risk of or MO) 5. Stress-induced perfusion abnormalities encumbering >=10% myocardium [...] 2 mg Versed and 75 mcg fentanyl Spikemaking Supervisor: Gene De La Garza MD Procedure summary: [...] any plaque shift into diagonal or septal signs and displays salesperson. Patient tolerated the procedure well symptomatically. No postprocedure complication, estimated blood loss 5 cc. Catheter was removed and TR band was applied achieving hemostasis. Impression: Successful PCI of 80% proximal LAD stenosis involving diagonal and large septal signs and displays salesperson trifurcation with 3.5X16 synergy SONIA post dilated [...] Clotting Time, High Range (11/25/2024 11:19 AM CERTIFIED MEETING PROFESSIONAL) ACT 239(H) 87 - 138 sec Blood 11/25/2024 11:1 9 AM CERTIFIED MEETING PROFESSIONAL 11/25/2024 11:19 AM CERTIFIED MEETING PROFESSIONAL Gene De La Garza MD LAB BLOOD ORDERABLES Final Resu lt [facility] [address] Department [place] [address] * (ABNORMAL) eGFR (11/25/2024 9:01 AM CERTIFIED MEETING PROFESSIONAL) eGFR 56(L) >=60 mL/min/1. 73 m2 Comment: [...] last reviewed 2021. Blood 11/25/2024 9:01 AM CERTIFIED MEETING PROFESSIONAL 11/25/2024 9:05 AM CERTIFIED MEETING PROFESSIONAL us Gene De La Garza MD LAB BLOOD ORDERABLES Final Resu lt [facility] [address] Department [place] [address] * Differential, auto (11/25/2024 9:01 AM CERTIFIED MEETING PROFESSIONAL) Neutrophil abs 6.4 1.5 - 6.5 K/cumm Imm gran abs 0.1 0.0 - 0.1 K/cumm [facility] Lymphocyte abs 1.8 0.8 - 3.3 K/cumm [facility] Monocyte abs 0.6 0.2 - 0.8 K/cumm [facility] Eosinophil abs 0.1 0.0 - 0.5 K/cumm [facility] Basophil abs 0.1 0.0 - 0.1 K/cumm [facility] Neutrophil pct 70.9 % [facility] Comment: Interpretive Data Percent cell count reference ranges are not reported, since discordance with absolute values may lead to misinterpretation of CBC data. Current Interpretive Data was last revised on 2018. Imm gran pct 0.7 % [facility] Comment: Interpretive Data Percent cell count reference ranges are not reported, since discordance with absolute values may lead to misinterpretation of CBC data. Current Interpretive Data was last revised on 2018. Lymphocyte pct 19.3 % [facility] Comment: Interpretive Data Percent cell count reference ranges are not reported, since discordance with absolute values may lead to misinterpretation of CBC data. Current Interpretive Data was last revised on 2018. Monocyte pct 6.7 % [facility] Comment: Interpretive Data Percent cell count reference ranges are not reported, since discordance with absolute values may lead to misinterpretation of CBC data. Current Interpretive Data was last revised on 2018. Eosinophil pct 1.5 % [facility] Comment: Interpretive Data Percent cell count [...] revised on 2018. Blood 11/25/2024 9:01 AM CERTIFIED MEETING PROFESSIONAL 11/25/2024 9:01 AM CERTIFIED MEETING PROFESSIONAL Gene De La Garza MD LAB BLOOD ORDERABLES Final Resu lt Performing Organization Address [facility]/ZIP Co de Phone Number [facility] [address] [place] [address] * (ABNORMAL) CBC with auto differential (11/25/2024 9:01 AM CERTIFIED MEETING PROFESSIONAL) WBC 9.1 3.8 - 9.9 K/cumm Hgb 14.1 13.0 - 17.5 g/dL [facility] Hct 43.3 38.9 - 50.3 % [facility] Plt 190 150 - 400 K/cumm [facility] MPV 9.0(L) 9.1 - 12.3 fL [facility] RBC 4.55 4.30 - 5.80 M/cumm [facility] MCV 95.2 81.3 - 96.4 fL [facility] MCH 31.0 27.1 - 33.3 pg [facility] MCHC 32.6 32.3 - 35.7 g/dL [facility] CH RDW CV 14.9 11.1 - 14.9 % [facility] CH RDW SD 52.1(H) 35.7 - 48.1 fL [facility] NRBC abs 0.00 0.00 - 0.01 K/cumm [facility] Blood 11/25/2024 9:01 AM CERTIFIED MEETING PROFESSIONAL 11/25/2024 9:01 AM CERTIFIED MEETING PROFESSIONAL Gene De La Garza MD LAB BLOOD ORDERABLES Final Resu lt Performing Organization Address [facility] Co de Phone Number LEONID ARANA [address] [place] [address] * (ABNORMAL) Comprehensive metabolic panel (11/25/2024 9:01 AM CERTIFIED MEETING PROFESSIONAL) Sodium 141 135 - 145 mmol/L Potassium, [...] Units/L [facility] Blood 11/25/2024 9:01 AM CERTIFIED MEETING PROFESSIONAL 11/25/2024 9:01 AM CERTIFIED MEETING PROFESSIONAL us Gene De La Garza MD LAB BLOOD ORDERABLES Final Resu lt [facility] [place] [address] Department [place] [address] * CTA Abdomen Pelvis (10/06/2023 1:35 PM CERTIFIED MEETING PROFESSIONAL) Anatomical Region Laterality Modality Body N/A Computed Tomogra phy 10/06/2023 2:15 PM CERTIFIED MEETING PROFESSIONAL Impressions 10/07/2023 1:05 PM CERTIFIED MEETING PROFESSIONAL IMPRESSION: 1. Stable small infrarenal penetrating atherosclerotic ulcers. No abdominal aortic aneurysm or evidence of instability. 2. Morphologic features of hepatic fibrosis. Dictated by: Melonie Rodriguez M.D. The radiology attending physician has personally reviewed this study, and had reviewed and/or edited this written report and agrees with it. Electronically signed by: Cuauhtemoc Otero M.D. Narrative 10/07/2023 1:05 PM CERTIFIED MEETING PROFESSIONAL EXAMINATION: CT ANGIOGRAPHY OF THE ABDOMEN AND [...] Most Recently Relevant to Health Maintenance Insurance [employer] AET MEDICARE [employer] Advance Directives For more information, please contact: [phone] * Full Code (Latest Code Status on File) Date Activated Date Inactivated Comments 11/25/2024 11:59 AM 11/26/2024 5:49 PM Care Teams Bulk Materials Handling Plant Operator Relationship Specialty Start Date End Date Odin Alex MD PCP - General 02/28/17 Gene De La Garza MD [address] [place] [address] Consulting Physician Cardiology 11/26/24
--- OUTSIDE RECORDS SUMMARY | 2025-02-06 19:32 | XMS_ITS ---
Author Organization [facility] Address [address] [place] [address] Care Team Providers Care Hand Touch Up Painter Name Role Phone Odin Alex MD Primary Care Provider Dr. Jens Crockett Unavailable [phone] Hugo Dempsey Unavailable Allergies No Known Allergies REASON FOR VISIT EP-General Neuro, Bilateral upper extremity paresthesias Medications Medication SIG (Take, Route, Frequency, Duration) Notes Start Date End Date Status PANTOPRAZOLE 40 mg 1 tab(s) orally once a day Active PRAVASTATIN 40 mg 1 tab(s) orally once a day Active ELIQUIS 5 mg as directed orally 2 times a day Active METOPROLOL SUCCINATE ER 100 mg 1 tab(s) orally once a day Active VALSARTAN 320 mg 1 tab(s) orally once a day Active MONTELUKAST 10 mg 1 tab(s) orally once a day Active ACETAMINOPHEN 500 mg 2 tab(s) orally kevin ry 6 hours Active BENADRYL 25 mg 1 cap(s) orally ever y 6 hours Active MELATONIN 10 mg 1 tab(s) orally once a day (at bedtime) Active ALPRAZOLAM 0.25 mg 1 tab(s) orally ever y 8 hours Active CENTRUM Therapeutic Multiple Vitamins with Minerals 1 tab(s) orally once a day Active FLONASE ALLERGY RELIEF 50 mcg/inh 1 spray(s) in each nostril once a day Active Problems Problem Type SNOMED Code ICD Code Onset Dates Problem Status W/U Status Risk Notes Problem Chronic migraine without aura, non-intractab le (927590059395 100) Chronic migraine without aura, not intractable, without status migrainosus (G43.709) Active confirmed Problem Migraine with aura (2743024) Migraine with aura, not intractable, without status migrainosus (G43.109) Active confirmed Problem Chronic migraine without aura, non-refractor y (disorder) (674456401417 100) Migraine without aura, not intractable, without status migrainosus (G43.009) Active confirmed Vital Signs Blood pressure systolic 126 mm Hg 01/28/20 24 Blood pressure diastolic 74 mm Hg 024 Weight 243.8 lbs 01/28/2024 Oximetry 98 % 01/28/2024 + Encounters Encounter Location Date Provider Diagnosis [facility] [address] [facility] [address] [place] [address] 01/28/2024 Jens Pepper Type 2 diabetes mellitus with diabetic polyneuropathy E11.42 and Carpal tunnel syndrome, bilateral upper limbs G56.03 Assessments Encounter Date Diagnosis (ICD Code) Assessment Notes Treatment Notes Treatment Clinical Notes Section Notes 01/28/2024 Type 2 diabetes mellitus with diabetic polyneuropathy (ICD-10 - E11.42) Discussed tojorje y that I think that most of the numbness in his hands is related to diabetic polyneuropathy and that I was skeptical that bilateral carpal tunnel release would help him much and that I did not recommend that. He does not have a preponderence of neuropathic pain to treat with medication. Advised glycemic control 01/28/2024 Carpal tunnel syndrome, bilateral upper limbs (ICD-10 - G56.03) Discussed today that I think that most of the numbness in his hands is related to diabetic polyneuropathy and that I was skeptical that bilateral carpal tunnel release would help him much and that I did not recommend that. He does not have a preponderence of neuropathic pain to treat with medication. Advised glycemic control Plan Of Treatment Next Appt Details Follow Up: prn, Reason: Eval uation and Management Progress Notes * Billy RUSS LDOB:1944 (78 yo M)Acc No.[id number]:01/28/2024 Neuro follow-up Patient: Billy HUGGINS Provider: Nando Pepper MD :1945 A ge:78 Y S ex:Male Date:01/28/2024 Address: [address] , [facility] Pcp:Odin Alex MD Subjective: * Chief Complaints: * E P-General NeuroBilateral upper extremity paresthesias * HPI: * Introduction: I had the pleasure of seeing Kesha Russ, who presented for follow-up for b ilateral upper extremity paresthesias. * Initial History: He is a 78 year old man with a h/o HLD, HTN, PAFib, COPD, lumbar DDD. He is treated by Dr. Dempsey for lumbar DDD and radiculopathy and has undergone lumbar FLAVIO. He complains of numbness/tingling in both hands. Symptoms used to be more intermittent, now more constant. Symptoms have been present for at least a year. There is no pain in the hands or arms, there is no paresthesias in his arms. He reports cervical DDD but denies neck pain or classic radicular pain. EMG is requested to evaluate for CTS and/or cervical radiculopathy. * Previous Impression & Plan: Notes P revious Diagnoses: 1 . Type 2 diabetes mellitus with diabetic polyneuropathy - E11.42 (Primary) 2 . Carpal tunnel syndrome, bilateral upper limbs - G56.03 E lectrical testing shows both underlying peripheral neuropathy (small upper extremity SNAP responses, minimal chronic reinnervation changes in bilateral first dorsal interosseus without evidence of ulnar neuropathy) as well as bilateral median neuropathy at the wrist, mild in degree on the right, equivocal/very mild in degree on the left side. His constant bilateral hand numbness is likely due to both neuropathy and superimposed carpal tunnel syndrome, probably in larger part due to the neuropathy. There is no evidence of cervical radiculopathy. * Interval History: Notes I nterval History: H ere to review EMG testing. He has DM2.? He has numbness in bilateral feet for few years, more recently numbness in both hands, pain/sensitivity in fingertips bilaterally. The hand symptoms are constant not intermittent. EMG B UE showed evidence of very mild B CTS as well as underlying polyneuropathy with no evidence of bilateral cervical radiculopathy. * ROS: C ONSTITUTIONAL: Positive for P atient denies fevers, chills, sweats, unintended weight loss, loss of appetite, or chronic fatigue. E NT: Positive P atient denies ear fullness or pain or sinus pain. R ESPIRATORY: Positive for P atient denies shortness of breath or wheezing. O PHTHALMOLOGY: Positive for R eviewed and except as mentioned above in the HPI is negative. E NDOCRINOLOGY: Positive for P atient denies heat intolerance, cold intolerance, polyuria, elevated blood sugar, chronic fatigue. C ARDIOLOGY: Positive for P atient denies dizziness, palpitations, or chest pain. G ASTROENTEROLOGY: Positive for P atient denies diarrhea, melena, bloody stools, or abdominal pain. U ROLOGY: Positive for P atient denies urinary incontinence or urinary dysfunction. D ERMATOLOGY: Positive for P atient denies rash or hives. ? N EUROLOGY: Positive for R eviewed and except as mentioned above in the HPI is negative. H EMATOLOGY/LYMPH: Positive for P atient denies history of excessive bruising or bleeding diasthesis. M USCULOSKELETAL: Positive for P atient denies extremity joint pain or swelling. P SYCHOLOGY: Positive for R eviewed and except as discussed above in the HPI is otherwise negative. * Medical History: * Surgical History: S /p lumbar FLAVIO S/p cataracts S/p pilonidal cyst removal S/p cardiac ablation * Hospitalization/Major Diagno stic Procedure: * Family History: F ather: Heart disease, Cancer. M other: Hypertension, Diabetes mellitus. S iblings: Cancer, AFIB, Kidney disease. 2 brother(s) , 2 sister(s) . . * Social History: Non-smoker. * Medications: T akingFlonase Allergy Relief 50 mcg/inh spray 1 spray(s) in each nostril once a day Centrum Therapeutic Multiple Vitamins with Minerals tablet 1 tab(s) orally once a day Melatonin 10 mg tablet, extended release 1 tab(s) orally once a day (at bedtime) Benadryl 25 mg capsule 1 cap(s) orally every 6 hours acetaminophen 500 mg tablet 2 tab(s) orally every 6 hours montelukast 10 mg tablet 1 tab(s) orally once a day ALPRAZolam 0.25 mg tablet 1 tab(s) orally every 8 hours valsartan 320 mg tablet 1 tab(s) orally once a day Metoprolol Succinate ER 100 mg tablet, extended release 1 tab(s) orally once a day Eliquis 5 mg tablet as directed orally 2 times a day pravastatin 40 mg tablet 1 tab(s) orally once a day pantoprazole 40 mg delayed release tablet 1 tab(s) orally once a day Taking Flonase Allergy Relief 50 mcg/inh spray 1 spray(s) in each nostril once a day Taking Centrum Therapeutic Multiple Vitamins with Minerals tablet 1 tab(s) orally once a day Taking Melatonin 10 mg tablet, extended release 1 tab(s) orally once a day (at bedtime) Taking Benadryl 25 mg capsule 1 cap(s) orally every 6 hours Taking acetaminophen 500 mg tablet 2 tab(s) orally every 6 hours Taking montelukast 10 mg tablet 1 tab(s) orally once a day Taking ALPRAZolam 0.25 mg tablet 1 tab(s) orally every 8 hours Taking valsartan 320 mg tablet 1 tab(s) orally once a day Taking Metoprolol Succinate ER 100 mg tablet, extended release 1 tab(s) orally once a day Taking Eliquis 5 mg tablet as directed orally 2 times a day Taking pravastatin 40 mg tablet 1 tab(s) orally once a day Taking pantoprazole 40 mg delayed release tablet 1 tab(s) orally once a day * Allergies: N .K.D.A.no[Allergies Verified] Objective: * Vitals: B P:126/74mm Hg, HR:77/min, Pulse Oximetry:98%, Wt: 243.8 lbs +. * Examination: G eneral examination: General appearance: P leasant, well-developed, no distress.? Heart: R RR, S1-S2, no murmurs, no rubs, no gallops. Lungs: C lear to auscultation and percussion in all lung webster. Abdomen: S oft, NT/ND, normal active bowel sounds. Neurologic exam: A lert and oriented x 4. Fluent speech. CN II-XII intact. Motor 5/5 strength in bilateral upper extremities; there is mild 4+/5 distal weakness in bilateral lower extremities. There is distal areflexia. There is reduced pin sensation in a stocking-glove distribution bilaterally. Gait is unsteady and antalgic, uses a cane. Assessment: * Assessment: 1. T ype 2 diabetes mellitus with diabetic polyneuropathy - E11.42 (Primary) 2 . C arpal tunnel syndrome, bilateral upper limbs - G56.03 Discussed today that I think that most of the numbness in his hands is related to diabetic polyneuropathy and that I was skeptical that bilateral carpal tunnel release would help him much and that I did not recommend that. He does not have a preponderence of neuropathic pain to treat with medication. Advised glycemic control. Plan: * Treatment: * Procedure Codes: G 8427 DOC MEDS VERIFIED W/PT OR RE * Preventive Medicine: T his was a 20 minute visit with time spent in counseling. * Follow Up: p rn (Reason: Evaluation and Management) * Billing Information: * Visit Code: 94588 Office Visit, Est Pt., Level 3. Modifiers: 25 * Procedure Codes: G8427 DOC MEDS VERIFIED W/PT OR RE. * ETIZER OPERATOR Sign off status: Completed true * Provider: Nando Pepper MD Date: 0 01/28/2024 Generated for Satish benitez/Nicole/Yahiritting on: 0 02/06/2025 07:32 PM CDT History and Physical Notes * HPI (History of Present Illness) Category Sub-Category Detail Notes Category Notes *Introduction I had the pleasure of seeing Billy Russ, who presented for follow-up for bilateral upper extremity paresthesias *Initial History He is a 78 year old man with a h/o HLD, HTN, PAFib, COPD, lumbar DDD. He is treated by Dr. Dempsey for lumbar DDD and radiculopathy and has undergone lumbar FLAVIO. He complains of numbness/tingling in both hands. Symptoms used to be more intermittent, now more constant. Symptoms have been present for at least a year. There is no pain in the hands or arms, there is no paresthesias in his arms. He reports cervical DDD but denies neck pain or classic radicular pain. EMG is requested to evaluate for CTS and/or cervical radiculopathy. *Previous Impression & Plan Notes Previous Diagnoses:1. Type 2 diabetes mellitus with diabetic polyneuropathy - E11.42 (Primary)2. Carpal tunnel syndrome, bilateral upper limbs - G56.03Electrical testing shows both underlying peripheral neuropathy (small upper extremity SNAP responses, minimal chronic reinnervation changes in bilateral first dorsal interosseus without evidence of ulnar neuropathy) as well as bilateral median neuropathy at the wrist, mild in degree on the right, equivocal/very mild in degree on the left side. His constant bilateral hand numbness is likely due to both neuropathy and superimposed carpal tunnel syndrome, probably in larger part due to the neuropathy. There is no evidence of cervical radiculopathy *Interval History Notes Interval History: Here to re view EMG testing. He has DM2. He has numbness in bilateral feet for few years, more recently numbness in both hands, pain/sensitivity in fingertips bilaterally. The hand symptoms are constant not intermittent. EMG B UE showed evidence of very mild B CTS as well as underlying polyneuropathy with no evidence of bilateral cervical radiculopathy Examination Category Sub-Category Detail Notes Category Not es General examination Heart: RRR, S1-S2, no murmurs, no rubs, no gallops Lungs: Clear to auscultatio n and percussion in all lung webster Abdomen: Soft, NT/ND, normal active bowel sounds General appearance: Pleasant, well-devel oped, no distress Neurologic exam: Alert and oriented x 4. Fluent speech. CN II-XII intact. Motor 5/5 strength in bilateral upper extremities; there is mild 4+/5 distal weakness in bilateral lower extremities. There is distal areflexia. There is reduced pin sensation in a stocking-glove distribution bilaterally. Gait is unsteady and antalgic, uses a cane
--- OUTSIDE RECORDS SUMMARY | 2025-02-06 19:32 | XMS_ITS ---
Author Organization [facility] Address [address] [place] [address] Care Team Providers Care Program Trainer Name Role Phone Odin Alex MD Primary Care Provider Dr. Jens Crockett Unavailable [phone] Hugo Dempsey Unavailable Allergies No Known Allergies REASON FOR VISIT DIRECTOR EDUCATION-General Neuro Medications Medication SIG (Take, Route, Frequency, Duration) Notes Start Date End Date Status MELATONIN 10 mg 1 tab(s) orally once a day (at bedtime) Active PRAVASTATIN 40 mg 1 tab(s) orally once a day Active CENTRUM Therapeutic Multiple Vitamins with Minerals 1 tab(s) orally once a day Active FLONASE ALLERGY RELIEF 50 mcg/inh 1 spray(s) in each nostril once a day Active PANTOPRAZOLE 40 mg 1 tab(s) orally once a day Active VALSARTAN 320 mg 1 tab(s) orally once a day Active ALPRAZOLAM 0.25 mg 1 tab(s) orally ever y 8 hours Active MONTELUKAST 10 mg 1 tab(s) orally once a day Active ELIQUIS 5 mg as directed orally 2 times a day Active METOPROLOL SUCCINATE ER 100 mg 1 tab(s) orally once a day Active BENADRYL 25 mg 1 cap(s) orally ever y 6 hours Active ACETAMINOPHEN 500 mg 2 tab(s) orally kevin ry 6 hours Active Problems Problem Type SNOMED Code ICD Code Onset Dates Problem Status W/U Status Risk Notes Problem Polyneuropathy due to type 2 diabetes mellitus (995670634) Type 2 diabetes mellitus with diabetic polyneuropathy (E11.42) Active confirmed Problem Carpal tunnel syndrome (09223820) Carpal tunnel syndrome, bilateral upper limbs (G56.03) Active confirmed Encounters Encounter Location Date Provider Diagnosis [facility] [address] [address] 12/17/2023 Jens Pepper Type 2 diabetes mellitus with diabetic polyneuropathy E11.42 and Carpal tunnel syndrome, bilateral upper limbs G56.03 Assessments Encounter Date Diagnosis (ICD Code) Assessment Notes Treatment Notes Treatment Clinical Notes Section Notes 12/17/2023 Type 2 diabetes mellitus with diabetic polyneuropathy (ICD-10 - E11.42) Electrical testing shows both underlying peripheral neuropathy (small [...] There is no evidence of cervical radiculopathy 12/17/2023 Carpal tunnel syndrome, bilateral upper limbs (ICD-10 - G56.03) Electrical testing shows both underlying peripheral neuropathy (small [...] There is no evidence of cervical radiculopathy Plan Of Treatment Next Appt Details Follow Up: prn, Reason: Eval uation and Management Progress Notes * Billy RUSS LDOB:1944 (78 yo M)Acc No.[id number]:12/17/2023 DIRECTOR EDUCATION Neuro Patient: Irineo Billy RAMIREZ Provider: Nando Pepper MD :1945 A ge:78 Y S ex:Male Date:12/17/2023 Address:[address] [place], [place] [id number] Pcp:Odin Alex MD Subjective: * Chief Complaints: * N P-General Neuro * HPI: * Introduction: I had the pleasure of seeing Kesha Russ who was referred by Dr. Dempsey at [facility] for evaluation and electrodiagnostic testing for complaints of bilateral upper extremity paresthesias. He is a 78 year old man [...] evaluate for CTS and/or cervical radiculopathy. * ROS: C ONSTITUTIONAL: Positive [...] tablet 1 tab(s) orally once a day Medication List reviewed and reconciled with the patientTaking Flonase Allergy Relief 50 mcg/inh spray 1 [...] tablet 1 tab(s) orally once a day Medication List reviewed and reconciled with the patient * Allergies: N .K.D.A.no[Allergies Verified] Objective: * Examination: G eneral examination: General appearance: [...] tunnel syndrome, bilateral upper limbs - G56.03 Electrical testing shows bot h underlying peripheral neuropathy (small upper extremity SNAP [...] There is no evidence of cervical radiculopathy. Plan: * Treatment: * Procedure Codes: G 8427 DOC MEDS VERIFIED W/PT OR [id number] NRV CNDJ TEST 13/> [id number] MUSC TEST DONE W/N TEST COMP, Units: 2.00 * Follow Up: p rn (Reason: Evaluation and Management) * Billing Information: * Visit Code: 85969 Office Visit, New Pt., Level 3. Modifiers: 25 * Procedure Codes: G8427 DOC MEDS VERIFIED W/[place]. [address] NRV CNDJ TEST 13/> STUDIES. 18845 MUSC TEST DONE W/N TEST COMP. Units: 2.00. * TIONS MARKET CONSULTANT Sign off status: Completed true * Provider: Nando Pepper MD Date: 0 12/17/2023 Generated for Satish benitez/Reemakarina/eTransmitting on: 0 02/06/2025 07:32 PM CDT History and Physical Notes * HPI (History of Present Illness) Category Sub-Category Detail Notes Category Not es *Introduction I had the pleasure o f seeing Billy Russ who was referred by Dr. Dempsey at [facility] for evaluation and electrodiagnostic testing for complaints of bilateral upper extremity paresthesias. He is a 78 year old man [...] requested to evaluate for CTS and/or cervical radiculopathy Examination Category Sub-Category Detail Notes [...]
--- OUTSIDE RECORDS SUMMARY | 2025-02-06 19:32 | XMS_ITS | CONTINUITY OF CARE DOCUMENT ---
Author Name darline gregorio Address Unknown Organization [facility] Address [address] [place] [address] Phone [phone] Care Team Providers Care Technical Specialist Name Role Phone Homero LEACH, Chay Unavailable [phone] ESTRELLITA LEACH, CATHRYN Unavailable ESTRELLITA LEACH, CATHRYN Unavailable PROBLEMS Condition Status Date Provider Notes Abnormal nuclear stress test active Dilan castrejon GERD active Chay Valentin MD Hyperlipidemia active Chay Valentin MD Atrial fibrillation active Chay Valentin MD HTN essential--echo ef marciano l 08/2024 active Dilan Horner Diabetes mellitus completed - Chay Valentin MD Family History of Hypertension: completed - Robby Fish Obesity active Robby Fish 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 Dilan castrejon Leg edema, bilateral active Dilan Horner Aortic aneurysm, abdominal active Chay malik MD Edema-BLE active Chay Valentin MD CAD 80% pLAD s/p SONIA, 10/2024 active Dilan nealedtoby 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, partial, right foot active Chay Valentin MD Chest pain active Dilan Horner Shortness of breath active Dilan Horner ENCOUNTERS Date Type Provider Location Encounter Diag nosis - In-person encounter Office Visit Chay Valentin MD [place] [facility] CAD 80% pLAD s/p SONIA, 10/2024 - In-person encounter Office Visit Gene De La Garza MD [facility] CAD 80% pLAD s/p SONIA, 10/2024 - In-person encounter Office Visit Chay Valentin MD [facility] HTN essential--echo ef normal 08/2024OSA--severe on BIPAP with Y8Ngdmy painShortness of breath - In-person encounter Office Visit Chay Valentin MD [place] [facility] Aortic aneurysm, abdominal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, partial, right foot - In-person encounter Office Visit Chay Valentin MD [place] [facility] CASTRO--severe on BIPAP with O2 - In-person encounter Office Visit Chay Valentin MD [place] [facility] - In-person encounter Office Visit Chay Valentin MD [facility] CASTRO--severe on BIPAP with O2CAD 80% pLAD s/p SONIA, 10/2024 - In-person encounter Office Visit Chay Valentin MD [place] [facility] - In-person encounter Office Visit Chay Valentin MD [place] [facility] HTN essential--echo ef normal 08/2024Leg edema, bilateralAortic aneurysm, abdominalEdema-BLE - In-person encounter Office Visit Chay Valentin MD [place] [facility] HTN essential--echo ef normal 08/2024OSA--severe on BIPAP with O2 - In-person encounter Office Visit Chay Valentin MD [place] [facility] Family History of Hypertension:Obesity - In-person encounter Office Visit Chay Valentin MD [place] [facility] - In-person encounter Office Visit Chay Valentin MD [place] [facility] Diabetes mellitus VITAL SIGNS Date Observation [...] blood pressure, systolic 136 mm[Hg] Analisa la [facility] pulse rate 73 /min Mary Ellen [facility] oxygen saturation, oximetry 99 % Mary Ellen Ruple weight E&M 262 [lb_av] Mary Ellen Ruple height E&M 72 [in_i] Mary Ellen [facility] Body Mass Index (Ratio) 34.93 kg/m2 Tim [...] kLogic blood pressure, cuff size regular Fa [facility] blood pressure, diastolic 98 mm[Hg] Fa [facility] blood pressure, systolic 165 mm[Hg] Live [facility] pulse rate 66 /min [facility] respiratory rate E&M 16 /min Humaira Collier deidra oxygen saturation, oximetry 98 % [facility] weight E&M 260 [lb_av] [facility] height E&M 72 [in_i] [facility] Body Mass Index (Ratio) 35.67 kg/m2 [...] nesha Van blood pressure, systolic 160 mm[Hg] [facility] oxygen saturation, oximetry 97 % [facility] respiratory rate E&M 16 /min [facility] pulse rate 74 /min Jazmin Van weight E&M 257.6 [lb_av] Jazmin Van height E&M 72 [in_i] Jazmin Van Body Mass Index (Ratio) 36.61 kg/m2 Tim Valentin MD blood pressure, diastolic 92 mm[Hg] Ca therine [place] blood pressure, systolic 160 mm[Hg] Cat herine [place] oxygen saturation, oximetry 96 % Kiki [facility] respiratory rate E&M 16 /min Catheri ne [place] pulse rate 87 /min Kiki [place] weight E&M 270 [lb_av] Kiki [place] blood pressure, cuff size regular Ca therine [place] height E&M 72 [in_i] Kiki [place] Body [...] MD blood pressure, diastolic 113 mm[Hg] To [facility] blood pressure, systolic 173 mm[Hg] Ton julius Patten blood pressure, resting Yes [facility] oxygen saturation, oximetry 98 % [facility] respiratory rate E&M 16 /min [facility] pulse rate 58 /min [facility] temperature E&M 97.3 [degF] [facility] temperature site temporal [facility] weight E&M 261 [lb_av] [facility] height E&M 72 [in_i] [facility] ALLERGIES No Known Drug Allergies RESULTS Date Observation Value Provider Reference Range Interpretation Location 8 LDL cholesterol, serum 56 mg/dL Robby Fish HISTORY OF MEDICATION USE Medication Status Instructions Dates Provider Indications [facility] valsartan-hydrochloro thiazide 320-25 mg tablet active Take 1 tablet by mouth once daily 01/26 Ailyn Soria valsartan-hydrochloro thiazide 160-12.5 mg tablet completed Take 1 tablet by mouth once daily 12/20 - 01/26 Ailyn Soria Plavix 75 mg tablet active Take 1 [...] Dilan Horner furosemide 40 mg tablet active Take 1 tablet by mouth twice a day Chay Valentin MD trazodone 100 mg tablet active TAKE 1 TABLET BY MOUTH AT BEDTIME 03/01 Chay Valentin MD amlodipine 10 mg tablet completed TAKE 1 TABLET BY MOUTH EVERY DAY 12/29 - 01/27 Chay Valentin MD amlodipine 5 mg tablet completed Take 1 [...] mouth once daily 05/07 - 12/20 Dilan Horner valsartan-hydrochloro thiazide 320-25 mg tablet completed Take [...] mouth once daily 03/20 - 12/19 Dilan Mcbridecash montelukast 10 mg tablet active Dilan Mcbrideimeldatoby Spiriva Respimat 2.5 mcg/actuation mist active Chay [...] by mouth once a day 05/17 - 07/04 Kiki Kevin alprazolam 0.25 mg tablet active 1 tablet [...] Observation Value Provider smoking, year quit 1999 Dilanashley jefferson smoking history, tot al pack/year 365 Dilan imeldatoby smoking history, tot al pack/day 1 Dilanashley Horner cigarette use yes Dilan Ahjennyvanessa smoking status Former smoker Dilanashley Perry vanessa smoking, year quit 1999 Dilan [facility] smoking history, tot al pack/year 365 Dilanashley Horner smoking history, tot al pack/day 1 Dilanashley Horner cigarette use yes Dilan Ahimeldatoby smoking status Former smoker Dilan Perry vanessa smoking, year quit 1999 Humaira jiménez smoking history, tot al pack/year 365 Humaira Kumar smoking history, tot al pack/day 1 Humaira Kumar cigarette use yes Humaira Kumar smoking status Former smoker Humaira Kumar smoking, year quit 1999 Isidra Cardenas eniselaer smoking history, tot al pack/year 365 Isidra Gilbertjohanaer smoking history, tot al pack/day 1 Isidra Gilbertelder cigarette use yes Isidra Lindseynf elder smoking status Former smoker Isidra baigelder social history reviewed E&M revi ewed - no changes required Dilan Horner social history E&M S moking History: Ana Lilia mccarty is a former smoker. Dilan Horner cigarette use yes Sara garaychris smoking status Former smoker Sara armendariz social history reviewed E&M revi ewed - no changes required Dilan Horner social history E&M S moking History: Ana Lilia mccarty has never smoked. Dilan Horner smoking status Never smoker Vielka Juan social history reviewed E&M revi ewed - no changes required Chay Valentin MD smoking status Never smoker Jazmin Lopez social history reviewed E&M revi ewed - no changes required Chay Valentin MD social history E&M S moking History: Ana Lilia mccarty is a former smoker. Dilan Horner smoking, year quit 1999 Kiki [place] smoking history, tot al pack/year 365 Kiki [place] smoking history, tot al pack/day 1 Kiki [place] cigarette use yes Kiki [place] smoking status Former smoker Ikki Ot is social history reviewed E&M revi [...] Robby Fish smoking, year quit 1999 Isidra Freitasfly fuentes smoking history, tot al pack/day 1 Isidra Freitasjaer cigarette use yes Isidra Freitasrobertjaylenjovanni elder smoking status Former smoker Isidra Lindsey ancaer social history E&M S moking History: Ana Lilia mccarty is a former smoker. Chay Valentin MD social history reviewed E&M revi ewed - no changes required Chay Valentin MD smoking history, tot al pack/year 365 Tonsha Patten smoking history, tot al pack/day 1 Tonsha Patten smoking, year quit 1999 Tonsha Mo ss cigarette use yes Tonsha Patten smoking status [facility] FUNCTIONAL STATUS Date Observation Value Provider HRA, CV Assess/Plan, Angina (inactive) Management Plan continue current therapy Dilan Reedmedzai HRA, CV Assess/Plan, Angina (inactive) Management Plan continue current therapy Dilan Mcbridemedzai HRA, CV Assess/Plan, Angina (inactive) Management Plan continue current therapy Dilan Ahmedzai HRA, CV Assess/Plan, Angina (inactive) Management Plan continue current therapy Dilan Ahmedzai HRA, CV Assess/Plan, Angina (inactive) Management Plan continue current therapy Dilan Ahmedzai FAMILY HISTORY Family Member Condition Father Family History of Co ngestive Heart Failure: Father Family History of Co jomar Cancer: Mother Family History of Hy pertension: Mother Family History of Di abetes: INSURANCE PROVIDERS Payer name Policy type / Coverage type [place] red libertarian ID AETNA MEDICARE GOLD ADVANTAGE O Medicare A[facility]NA [facility] [id number] ADVANCE DIRECTIVES Name Date DISCUSSED - NO DECISION MADE TREATMENT PLAN Date Name Performer [id number],S, Dilan Ahmedza i [id number],S, Dilan Ahmedza i [id number],S, Dilan Ahmedza i [id number],S, Dilan Ahmedza i [id number],S, Idlan Ahmedza i [id number],S, Dilan Ahmedza i [id number],S, Dilan Ahmedza i [id number],S, Dilan Ahmedza i [id number],S, Dilan Ahmedza i [id number],S, Dilan Ahmedza i [id number],S, Dilan Ahmedza i [id number],S, Dilan Ahmedza i [id number],S, Dilan Ahmedza i [id number],S, Dilan Ahmedza i [id number],S, Dilan Ahmedza i [id number],S, Dilan Ahmedza i [id number],S, Dilan Ahmedza i [id number],S, Dilan Ahmedza i [id number],S, Dilan Ahmedza i [id number],S, Dilan Ahmedza i [id number],S, Dilan Ahmedza i [id number],S, Dilan medza i [id number],S, Dilan medza i [id number],S, Dilan medza i [id number],B, Dilan medza i [id number],S, Dilan medza i [id number],S, Dilan medza i [id number],S, Dilan medza i [id number],S, Dilan medza i [id number],S, Dilan medza i [id number],S, Dilan medza i [id number],S, Dilan medza i [id number],S, Dilan medza i [id number],S, Dilan medza i [id number],S, Dilan medza i [id number],S, Dilan medza i [id number],S, Dilan Ahmedza i [id number],S, Dilan Ahmedza i Cardiology Chay Valentin MD Cardiology: H [...] tablet by mouth every day Orders: [facility] ([id number]) Chay Valentin MD Cardiology:This visi t has been a part of the consistent, comprehensive, and ongoing management of the chronic medical condition(s) listed above for the patient. Orders: [facility] ([id number]) His updated medication list for this problem [...] Telehealth: O rders: L T HRT CATH (46047) B ASIC METABOLIC PANEL W/EGFR (75662) C BC (INCLUDES DIFF/PLT) (6399) L IPID [...] Take 1 tablet by mouth every day [facility]: O rders: L T HRT CATH (84122) B ASIC METABOLIC PANEL W/EGFR (75855) C BC (INCLUDES DIFF/PLT) (6399) L IPID PANEL (7600) P ROTHROMBIN TIME WITH INR (8847) [facility]: His updated medication list for this problem includes: Metoprolol Succinate 25 Mg Tablet Extended Release 24 Hr (Metoprolol succinate) ..... Take 1 tablet by mouth once daily Furosemide 40 Mg Tablet (Furosemide) Valsartan-hydrochlorothiazide 320-25 Mg Tablet (Valsartan-hydrochlorothiazide) ..... Take 1 tablet by mouth once daily Amlodipine 10 Mg Tablet (Amlodipine) ..... Take 1 tablet by mouth every day [facility] Tele[facility]: O rders: L T HRT CATH (06573) B ASIC METABOLIC PANEL W/EGFR (27658) C BC (INCLUDES DIFF/PLT) (6399) L IPID [...] Telehealth: O rders: L T HRT CATH (00599) B ASIC METABOLIC PANEL W/EGFR (97827) C BC (INCLUDES DIFF/PLT) (1599) L IPID PANEL (7090) P ROTHROMBIN TIME WITH INR (8847) His updated medication list for this problem includes: Metoprolol Succinate 25 Mg Tablet Extended Release 24 Hr (Metoprolol succinate) ..... Take 1 tablet by mouth once daily Amlodipine 10 Mg Tablet (Amlodipine) ..... Take 1 tablet by mouth every day Dilanashley Horner Telehealth [facility] Cardiology:This visi t has been a part of the consistent, comprehensive, and ongoing management of the chronic medical condition(s) listed above for the patient. Orders: M onitor - Telemetry (Mobile Cardiac) ([id number]) His updated medication list for this problem includes: Metoprolol Succinate 100 Mg Tablet Extended Release 24 Hr (Metoprolol succinate) ..... Take 1/2 tablet by mouth once daily Chay Valentin MD Cardiology: O rders: S tress Cardiac PET-CT (54053) m yocardial blood flow (PET) (86556) His updated medication list for this problem includes: Metoprolol Succinate 100 Mg Tablet Extended Release 24 Hr (Metoprolol succinate) ..... Take 1/2 tablet by mouth once daily Amlodipine 10 Mg Tablet (Amlodipine) ..... Take 1 tablet by mouth every day [facility]: O rders: S tress Cardiac PET-CT (75255) m yocardial blood flow (PET) (57926) The following medications were removed from the [...] Take 1 tablet by mouth every day [facility] Cardiology: H is updated medication list for this problem includes: Metoprolol Succinate 100 Mg Tablet Extended Release 24 Hr (Metoprolol succinate) ..... Take 1/2 tablet by mouth once daily [facility] Cardiology: O rders: S tress Cardiac PET-CT (87298) m yocardial blood flow (PET) (28633) His updated medication list for this problem includes: Metoprolol Succinate 100 Mg Tablet Extended Release 24 Hr (Metoprolol succinate) ..... Take 1/2 tablet by mouth once daily Amlodipine 10 Mg Tablet (Amlodipine) ..... Take 1 tablet by mouth every day [facility] Cardiology: O rders: M onitor - Telemetry (Mobile Cardiac) ([id number]) His updated medication list for this problem includes: Metoprolol Succinate 100 Mg Tablet Extended Release 24 Hr (Metoprolol succinate) ..... Take 1/2 tablet by mouth once daily [facility] Cardiology: B P today: 150/88 P [...] Take 1 tablet by mouth every day [facility] Telehealth: H is updated medication list for this problem includes: Metoprolol Succinate 100 Mg Tablet Extended Release 24 Hr (Metoprolol succinate) ..... Take 1 tablet by mouth once daily [facility] Telehealth: H is updated medication list for [...] Take 1 tablet by mouth once daily [facility] Telehealth [facility] Telehealth: H is updated medication list for this problem includes: Amlodipine 5 Mg Tablet (Amlodipine) ..... Take 1 tablet by mouth every night Metoprolol Succinate 100 Mg Tablet Extended Release 24 Hr (Metoprolol succinate) ..... Take 1 tablet by mouth once daily [facility] Telehealth: H is updated medication list for this problem includes: Pravastatin 40 Mg Tablet (Pravastatin) ..... 1 tablet by mouth once a day [facility] Telehealth [facility] Cardiology:Will add Amlodipine 5 mg for better HTN control BP today: 165/98 P rior BP: 146/86 (06/16/2023) Labs Reviewed: L DL: 56 (11/17/2020) [facility] Cardiology: H is updated medication list for this problem includes: Pravastatin 40 Mg Tablet (Pravastatin) ..... 1 tablet by mouth once a day Dilan Ahmedzai Cardiology Dilan Ahmedzai Cardiology Dilan Ahmedzai Cardiology:will check LORENZO to rul e out [...] Dilan Ahmedzai Cardiology Dilan Ahmedzai Cardiology Dilan Mcbridemedzai Cardiology Dialn Mcbridemedzai Cardiology Follow up :Encouraged weight loss. Chay [...]
--- OUTSIDE RECORDS SUMMARY | 2025-02-06 19:32 | XMS_ITS ---
Author Organization [facility] Address [address] [place] [address] Care Team Providers Care Fitting Room Inspector Name Role Phone Odin Alex MD Primary Care Provider Dr. Jens Crockett Unavailable [phone] Hugo Dempsey Unavailable Unavailable ZZ-Migration, Provider Unavailable Unavailab le REASON FOR VISIT [facility] To [facility] Conversion Encounter Medications Medication SIG (Take, [...] review and pick correct strength-formulatio n from MyTwinPlacean options. If intended option is not shown, [...] review and pick correct strength-formulatio n from [facility] options. If intended option is not shown, discontinue and re-order from Quick Search* Active Flonase Allergy Relief 50 MCG/ACT 1 spray(s) in each nostril once a day Active Encounters Encounter Location Date Provider Diagnosis [facility] [place] [address] 05/15/2024 Provider ZZ-Migration Plan Of Treatment No Information Progress Notes * Billy RUSS LDOB:1944 (79 yo M)Acc No.[id number]:05/15/2024 Patient: Billy HUGGINS Provider: Ana Lilia Salas :1945 A ge:78 Y S ex:Male Date:05/15/2024 Address:[address] [place], [place] [id number] Pcp:Odin Alex MD Subjective: * Chief Complaints: * 1 . Multum To Medispan Conversion Encounter. * Medical History: * Medications: T aking Flonase Allergy Relief 50 MCG/ACT Suspension 1 spray(s) in each nostril once a day , Taking Centrum THERAPEUTIC MULTIPLE VITAMINS WITH MINERALS TABLET 1 TAB(S) ORALLY ONCE A DAY , Notes to Pharmacist: *Please review and pick correct strength-formulation from MyTwinPlacespan options. If intended option is not shown, discontinue and re-order from Quick Search*, Taking Melatonin 10 MG TABLET, EXTENDED RELEASE 1 TAB(S) ORALLY ONCE A DAY (AT BEDTIME) , Notes to Pharmacist: *Please review and pick correct strength-formulation from Medispan options. If intended option is [...] * Electronic signature of Yolie STINSON-Migration on 02/06/2025 at 07:31 PM CDT Sign off status: Pending * Provider: Ana Lilia gonzalez Migration Date: 0 05/15/2024 Generated for Satish benitez/Nicole/Ryan on: 0 02/06/2025 07:31 PM CDT
--- OUTSIDE RECORDS SUMMARY | 2025-02-06 19:32 | XMS_ITS | Encounter Summary ---
Author Organization [facility] Address [address] [place] [id number] Care Team Providers Care Washcoat Wiper Name Role Phone Odin Alex MD Primary Care Provider Gene De La Garza MD Unavailable Encounter Details Date Type Department Care Team (Late st Contact Info) Description 03/27/2017 Orders Only [facility] Provider, MD Shanell [address] [place], [place] [id number] Social History Tobacco Use Types Packs/Day Years Used Date Smoking Tobacco: Former Cigarettes Q uit: 12/01/2000 Comments:Smoking History Pac ks/day: 20 Packs Alcohol Use Standard Drinks/Week Comments No 0 (1 standard drink = 0.6 oz pur e alcohol) Sex and Gender Information Value Date Recorded Sex Assigned at Not on file Legal Sex Male 10:59 AM AGENCY DEVELOPMENT MANAGER Gender Identity Male 12/28/2021 10:54 PM AGENCY DEVELOPMENT MANAGER Sexual Orientation Straight 12/28/2021 10 :54 PM AGENCY DEVELOPMENT MANAGER documented as of this encounter Plan of [...] on filedocumented in this encounter Care Teams Washcoat Wiper Relationship Specialty Start Date End Date Odin Alex MD PCP - General 02/28/17 Gene De La Garza MD [address] [place] [address] Consulting Physician Cardiology 11/26/24 documented as of this encounter
--- OUTSIDE RECORDS SUMMARY | 2025-02-06 19:33 | XMS_ITS | Referral Summary ---
Author Organization [facility] Address [address] [facility] [place] [address] Care Team Providers Care Motor Vehicle Assembler Name Role Phone Odin Alex MD Primary Care Provider [phone] Leo Wang MD Unavailable Leo Wang MD Unavailable [phone] Source Comments [facility],non-owned Affiliates and Associated Physician Practices is amultiple site organization consisting of ambulatory clinics and hospital sitesin [place], [place], [place] and [place]. This disclosure is being madepursuant to the Care Everywhere program and may not contain all information available regarding this patient. Last updated 18.[facility] Encounters Date Type Department Care Team Description 01/26/2025 Refill [facility] - Pulmonology [address] [facility] [address] [place] [address] Leo Wang MD Refill Request 12/24/2024 Refill [facility] - Pulmonology [address] [facility] [address] [place] [address] Leo Wagn MD Refill Request 12/15/2024 Telephone [facility] Pulmonology [address] [facility] [address] [place] [address] Leo Wang MD [facility] 12/13/2024 2:30 PM UNDERCOVER AGENT - 12/13/2024 11:59 PM UNDERCOVER AGENT Hospital Encounter [facility] Imaging Services - Radiology [address] [place], [place] [id number] Leo Wang MD Discharge Disposition: Home or Self Care 12/13/2024 Travel 12/13/2024 3:30 PM UNDERCOVER AGENT Office Visit [facility] - Pulmonology [address] [facility] [address] [place] [address] Leo Wang MD Chronic respiratory failure with hypoxia (HCC) (Primary Dx); COPD, 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 (28% of pred from 08/2022 with significant reversible component).; CASTRO treated with BiPAP; Nodule of lower lobe of left lung - 4 mm, indeterminate and unchanged on last OSH chest CT.; History of tobacco abuse; History of COVID-19; Coronary artery disease involving [place] coronary artery of [place] heart without angina pectoris; Hypertension, unspecified type; PAF (paroxysmal atrial fibrillation) (HCC); Chronic anticoagulation; Obesity (BMI 30-39.9) from Last 3 Months Allergies No known [...] (one) capsule by mouth once daily Active valsartan-hydroC HLOROthiazide (Diovan HCT) 320-25 MG tablet Take 1 (one) tablet by mouth once daily Active acetaminophen (Tylenol) 500 MG tablet Take 1 (one) tablet by mouth 2 times daily Maximum allowable Acetaminophen amount = 4 Grams (4000 mg) / 24 hours. Active loratadine (Claritin) 10 MG tablet Take 1 (one) tablet by mouth once daily Active fluticasone propionate (Flonase) 50 MCG/ACT nasal spray [place] 2 (two) sprays into each nostril once [...] OFF, THEN 2 WEEKS AGAIN 11/03/2023 Active ALPRAZolam (Xanax) 0.25 MG tablet Take [...] (one) tablet by mouth once daily 11/26/2024 11/26/20 25 Active Plavix 75 MG tablet Take 1 (one) tablet by mouth once 11/25/2024 Active montelukast (Singulair) 10 MG tablet Take 1 tablet by mouth once daily 90 tablet 2 12/24/2024 Active budeson-glycopyr rol-formoterol (Breztri Aerosphere) 160-9-4.8 MCG/ACT inhalerIndicatio ns:Chronic obstructive pulmonary disease, unspecified COPD type (HCC) Inhale 2 puffs by mouth twice daily 33 g 1 01/26/2025 Active Breztri LUBB-TEX 160-9-4.8 MCG/ACT inhalerIndicatio ns:Chronic obstructive pulmonary disease, unspecified COPD type (HCC) Inhale 2 puffs by mouth twice daily 32.1 g 1 07/27/2024 01/26/20 25 Discontinued Active Problems Problem Noted Date Diagnosed Date [...] Eliquis 5 mg twice daily.He has a QHM4LQ3-MYJw score of 2, therefore it is recommended that he remain anticoagulated for thromboprophylaxis. 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 Overview (11/02/2021): [...] Comments Blood Pressure 126/80 12/13/2024 3:36 PM UNDERCOVER AGENT Pulse 82 12/13/2024 3:36 PM UNDERCOVER AGENT Temperature 36.3 C (97.4 F) 12/13/2024 3:36 PM UNDERCOVER AGENT Respiratory Rate 20 12/13/2024 3:36 PM UNDERCOVER AGENT Oxygen Saturation 96% 12/13/2024 3:36 PM UNDERCOVER AGENT room air Inhaled Oxygen Concentration - - Weight 119.3 kg (263 lb) 12/13/2024 3:36 PM UNDERCOVER AGENT Height 182.9 cm (6') 12/13/2024 3:36 PM UNDERCOVER AGENT Body Mass Index 35.67 12/13/2024 3:36 PM UNDERCOVER AGENT Plan of Treatment Not on file Procedures Procedure Name Priority Date/Time Associated Diagnosis Comments XR CHEST 2VW Routine 12/13/2024 2:58 PM UNDERCOVER AGENT Dyspnea, unspecified type Acute on chronic diastolic [...] LAB ORDER 11/30/2024 CARDIAC CATH REPORT 11/18/2024 from Last 3 Months Results * XR Chest 2Vw (12/13/2024 2:58 PM UNDERCOVER AGENT) Anatomical Region Laterality Modality Chest Computed Radiogr aphy 12/13/2024 3:01 PM UNDERCOVER AGENT Impressions 12/13/2024 3:01 PM UNDERCOVER AGENT IMPRESSION: No acute disease. > Interpreting Provider: Jean-Pierre Sepulveda MD on 12/13/2024 3:01 PM Narrative 12/13/2024 3:01 PM UNDERCOVER AGENT Chest Two Views History: R06.00: Dyspnea, unspecified [...] 12/13/2024 3:01 PM Leo Wang MD DIAGNOSTIC ERNESTOIN G ORDERABLES * VASCULAR LAB ORDER (11/30/2024) Anatomical Region Laterality Modality Other 11/30/2024 Narrative 11/30/2024 Ordered by an unspecified provider. Scanned Document VASCULAR LAB ORDERAB LES * CARDIAC CATH REPORT (11/18/2024) 11/18/2024 Narrative 11/18/2024 Ordered by an unspecified provider. Scanned Document SCANNING ONLY from Last 3 Months Care Teams Motor Vehicle Assembler Relationship Specialty Start Date End Date Odin Alex MD [address] [place] [phone] PCP - General Internal Medicine 04/12/19 Leo Wang [place] [id number] [place] [address] [place] [address] PCP - Attributed-Coventry [place] 01/01/[address] [place] [address] [facility] [address] [place] [address] Pulmonary Disease 05/09/22
--- OUTSIDE RECORDS SUMMARY | 2025-02-06 19:33 | XMS_ITS | Clinical Summary ---
Author Organization [facility] Address [address] [facility] [place] [address] Care Team Providers Care Radiology Aide Name Role Phone Odin Alex MD Primary Care Provider [phone] Leo Wang MD Unavailable Leo Wang MD Unavailable [phone] Source Comments [facility],non-owned Affiliates and Associated Physician Practices is amultiple site organization consisting of ambulatory clinics and hospital sitesin [place], [place], [place] and [place]. This disclosure is being madepursuant to the Care Everywhere program and may not contain all information available regarding this patient. Last updated 18.[facility] Allergies No known active allergies Medications * [...] fluticasone propionate (Flonase) 50 MCG/ACT nasal spray [place] 2 (two) sprays into each nostril once [...] tablet by mouth once daily 11/26/2024 11/26/20 Active Plavix 75 MG tablet Take 1 (one) tablet by mouth once 11/25/2024 Active montelukast (Singulair) 10 MG tablet Take 1 tablet by mouth once daily 90 tablet 2 12/24/2024 Active budeson-glycopyr rol-formoterol (Breztri Aerosphere) 160-9-4.8 MCG/ACT inhalerIndicatio ns:Chronic obstructive pulmonary disease, unspecified COPD type (HCC) Inhale 2 puffs by mouth twice daily 33 g 1 01/26/2025 Active Breztri Aerosphere 160-9-4.8 MCG/ACT inhalerIndicatio ns:Chronic obstructive pulmonary disease, [...] Eliquis 5 mg twice daily.He has a [id number] score of 2, therefore it is recommended that he remain anticoagulated for thromboprophylaxis. [facility] current use of antiarrhythmic drug Overview (11/02/2021): Last Assessment & Plan: The patient's ECG today does not indicate any changes that would prohibit the use of Sotalol. As long as they remain on this medication, an ECG will be performed every 6 months for monitoring. S/P ablation of atrial fibrillation 06/28/2017 Encounters Date Type Department Care Team Description 01/26/2025 Refill [facility] Pulmonology [id number] [place] [address] [address] [place] [address] Leo Wang MD Refill Request 12/24/2024 Refill [facility] Pulmonology [id number] [place] [address] [address] [place] [address] Leo Wang MD Refill Request 12/15/2024 Telephone [facility] [address] [place] [address] Leo Wang MD General 12/13/2024 3:30 PM TIE SAWYER Office Visit [facility] Pulmonology [id number] [place] [address] [address] [place] [address] Leo Wang MD Chronic respiratory failure with hypoxia (HCC) (Primary Dx); COPD, 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 (28% of pred from 08/2022 with significant reversible component).; CASTRO treated with BiPAP; Nodule of lower lobe of left lung - 4 mm, indeterminate and unchanged on last OSH chest CT.; History of tobacco abuse; History of COVID-19; Coronary artery disease involving [place] coronary artery of [place] heart without angina pectoris; Hypertension, unspecified type; PAF (paroxysmal atrial fibrillation) (HCC); Chronic anticoagulation; Obesity (BMI 30-39.9) 12/13/2024 2:30 PM TIE SAWYER - 12/13/2024 11:59 PM TIE SAWYER Hospital Encounter [facility] Imaging Services - Radiology [address] [place] [address] Leo Wang MD Discharge Disposition: Home or Self Care 12/13/2024 Travel from Last 3 Months Immunizations Name Administration [...] Comments Blood Pressure 126/80 12/13/2024 3:36 PM TIE SAWYER Pulse 82 12/13/2024 3:36 PM TIE SAWYER Temperature 36.3 C (97.4 F) 12/13/2024 3:36 PM TIE SAWYER Respiratory Rate 20 12/13/2024 3:36 PM TIE SAWYER Oxygen Saturation 96% 12/13/2024 3:36 PM TIE SAWYER room air Inhaled Oxygen Concentration - - Weight 119.3 kg (263 lb) 12/13/2024 3:36 PM TIE SAWYER Height 182.9 cm (6') 12/13/2024 3:36 PM TIE SAWYER Body Mass Index 35.67 12/13/2024 3:36 PM TIE SAWYER Plan of Treatment Health Maintenance Due Date Last Done Comments HEPATITIS C SCREENING 05/22/1963 DTAP/TDAP/TD VACCINES (1 - Tdap) 1965 ZOSTER VACCINE (1 of 2) 1996 Respiratory Syncytial Virus (RSV) Vaccine Pt: or over 60 yrs (1 - 1-dose 75+ series) 2021 COVID-19 VACCINE ( season) 2024 03/18/2022, 08/30/2021, 02/25/2021, Additional history exists DEPRESSION SCREENING 12/01/2024 08/24/2024 MEDICARE AWV CALENDAR YEAR 2024 PNEUMOCOCCAL VACCINE 50+ Completed [...] XR CHEST 2VW Routine 12/13/2024 2:58 PM TIE SAWYER Dyspnea, unspecified type Acute on chronic diastolic [...] * XR Chest 2Vw (12/13/2024 2:58 PM TIE SAWYER) Anatomical Region Laterality Modality Chest Computed Radiogr aphy 12/13/2024 3:01 PM TIE SAWYER Impressions 12/13/2024 3:01 PM TIE SAWYER IMPRESSION: No acute disease. > Interpreting Provider: Jean-Pierre Sepulveda MD on 12/13/2024 3:01 PM Narrative 12/13/2024 3:01 PM TIE SAWYER Chest Two Views History: R06.00: Dyspnea, unspecified [...] ONLY from Last 3 Months Care Teams Radiology Aide Relationship Specialty Start Date End Date Odin Alex MD [address] [place] [address] [address] [place] [phone] PCP - General Internal Medicine 04/12/19 [place] [address] [facility] [address] [place] [address] PCP - [facility] 01/01/25 [place] [address] [place] [address] Pulmonary Disease 05/09/22
--- OUTSIDE RECORDS SUMMARY | 2025-02-06 19:33 | XMS_ITS ---
Author Name Sanchez RN, ROLLER ENGRAVER, Bonita Whitten Address [address] [place] [address] Phone [phone] Organization [facility] Care Team Providers Care Alloy Weigher Name Role Phone Shameka Bradford Unavailable [phone] Reason for Referral Not Available Allergies, adverse reactions, alerts No known allergies History of medication use Medication Class Instructions Start Date End Date Oxygen 2 liters via nc prn No Data Available 2024-12-03 0 No Data Available Problem List Problem Status Onset Date Resolved Date CHF (congestive heart failure) Active 2025-01-03 N/A Chronic respiratory failure with hypoxia Active 2025-01-03 N/A COPD (chronic obstructive pulmonary disease) Active 2025-01-03 N/A CASTRO (obstructive sleep apnea) Active 2025-01-03 N/A Pulmonary nodule Active 2025-01-03 N/A Nicotine dependence Active 2025-01-03 N/A AAA (abdominal aortic aneurysm) Active 3 N/A Spinal stenosis of lumbar region Active N/A GERD (gastroesophageal reflux disease) Active 25-01-03 N/A Essential hypertension Active 2025-01-03 N/A Hyperlipidemia Active 2025-01-03 N/A Atrial fibrillation, permanent Active 2025-01-03 N/A Obesity Active 2025-01-03 N/A Anxiety Active 2025-01-03 N/A Encounters Encounters Type Facility Date of Service Diagnosis/Co mplaint [facility] [place] [place] 12/30/2024 Encntr for f/u exam aft trtm t for cond oth than malig neoplmAcute respiratory failure with hypoxia [facility] [place] [place] 12/30/2024 Encntr for f/u exam aft trtm t for cond oth than malig neoplmAcute respiratory failure with hypoxia [facility] [place], 12/30/2024 Encntr for f/u exam aft trtm t for cond oth than malig neoplmAcute respiratory failure with hypoxia Telephone E/M Service; 11-20 min of Medical Discussion (Audio Only) [place], 01/03/2025 Acute respiratory failure with hypoxia Telephone E/M Service; 11-20 min of Medical Discussion (Audio Only) [place], 01/03/2025 Acute respiratory failure with hypoxia Telephone E/M Service; 11-20 min of Medical Discussion (Audio Only) [place], 01/03/2025 Acute respiratory failure with hypoxia Telephone E/M Service; 11-20 min of Medical Discussion (Audio Only) [place], 01/03/2025 Acute respiratory failure with hypoxia Vital Signs Date of Collection Vitals 2024-12-30 12:11:34 Pain Scale - 7.0 {sc ore} 2025-01-03 09:21:47 BP Diastolic - 54.0 mm[Hg]BP Systolic - 134.0 mm[Hg]O2 % BldC Oximetry - 93.0 % Social History Sex Male History of Procedures Procedures Service Procedure code Service date Servicing provider Phone# [facility] [id number] 2024-12-30 No Data Available No Data Avail able Medrec Completed within 30 Days of Discharge 2024-12-30 No Data Available No Data Availa ble Pain Assessment - Pain Documented 1122024-12-30 No Data Available No Data Availa ble Telephone E/M Service; 11-20 min of Medical Discussion (Audio Only) [id number] 2025-01-03 No Data Available No Data Availa ble Medrec Completed within 30 Days of Discharge 2025-01-03 No Data Available No Data Availa ble Systolic BP 130-139 [facility] (Controlled) 3072025-01-03 No Data Available No Data Avai lable Diastolic BP Less Than 80 [facility] (Controlled) 30782025-01-03 No Data Available No Data Availa ble Functional Status No Information Mental Status No Information Assessments Date of Service Assessments 2024-12-30 12:11:34 ACUTE RESPIRATORY FA ILURE WITH HYPOXIA 2025-01-03 09:21:47 Acute respiratory fa ilure with hypoxia[additional dx/concerns discussed] Plan of Care Date of Service Plans 2024-12-30 12:11:34 Pt went to the [facility] due to breathing issues. Was discharged home. Advised to f/u with PCP. Has PCP visit on 01/11/25 and is waiting to get scheduled with a new Pulmonary doctor.Pt Agreed to a post discharge visit with a [facility] Provider: Appointment scheduled with Shameka Bradford, RN, ROLLER ENGRAVER on Friday01/03/2025 at 4:30 pm (EST) - 3:30 pm (CRANE OPERATOR).RN reinforced availability of provider 23/06 for 30 days after discharge and encouraged CB w/ any concerns or if pt is worse in any way. Advised pt to call to reach our staff.Needs/concerns for [facility] provider to address during PD visit - has pt's coughing decreased, has chest tightness decreased, is he using his Oxygen regularly to decrease SOB. Pt is taking both Clopidogrel/Eliquis - RN advised Pt to ask doctor if he should be taking both of these meds. Pt states doctor is aware.Medication adherence/ refill concerns: None. 2025-01-03 09:21:47 Pt reports progressi ve improvement in sx since discharge, though still dependent on 2L O2 throughout the day. O2 sats have improved (93% today, typically lower).PCP f/u scheduled for 01/11, but still unable to schedule Pulmonary visit until they receive paperwork from hospital- encouraged pt/ to call [facility] to see if they can facilitate that record transfer, and provided number.none Goals Date Goal 2024-12-30 LINETTE reviewed with doug bonner with above diagnosis. This is a RN LINETTE encounter; no treatment was rendered to the patient by the provider. This encounter has been reviewed by the provider signing this note. 2025-01-03 Provider recommendat ions and precautions reviewed with patient/caregiver. They have been advised to call the urgent care number provided for any concerning symptoms or signs that arise prior to 01/26/25. Patient/caregiver expressed understanding and agreement with the plan. 2025-01-03 RN follow up needs: Health Concerns Date Concern 2025-01-03 Visit modality: phon ePatient location: homeVisit duration: 12mTime spent pre/post visit: 3mThis visit was provided through telemedicine using HIPAA compliant secure two-way interactive phone connection.The patient is being seen for a virtual visit s/p inpatient admission. Patient provided verbal consent for treatment and for this visit to be conducted via telemedicine.Other persons participating in telemedicine encounter: Maria D () 2025-01-03 Pertinent notes from discharge summary:Discharge summary n/a for review 2025-01-03 Type of Visit: IPAdm it Date: 12/24/24Discharge Date: 12/27/24Hospital name: [facility] diagnosis: ACUTE RESPIRATORY FAILURE WITH HYPOXIA 2025-01-03 RN visit dated was reviewed prior to encounter. The medication reconciliation performed during that call was verified today. 2025-01-03 Patient needs/concer ns noted during RN encounter and pre-visit chart reviewPt went to the hospital due to breathing issues. Was discharged home. Advised to f/u with PCP. Has PCP visit on 01/11/25 and is waiting to get scheduled with a new Pulmonary doctor.Pt is coughing today and has chest tightness. Pt is not feeling that well today, felt better yesterday. Pt called PCP's office to make them aware and PCP ordered a new medication to be picked-up at the pharmacy. RN encouraged Pt to put on his Oxygen to help ease his symptoms. Pt uses oxygen only as needed. states pt is normally SOB. RN encouraged using the oxygen to decrease these symptoms. 2025-01-03 Patient needs/concer ns discussed during provider visit:Pt reports he's feeling better today than he did last week. Head feels less congested, cough is getting better. Breathing is also feeling better. Has been using O2 throughout the day (2L)Appetite is reduced but okay, no problems w/ BMsHas PCP appt on 01/11, has not heard from new Pulmonary doctor yet- [facility], and no questions or concerns regarding these.
--- OUTSIDE RECORDS SUMMARY | 2025-02-06 19:33 | XMS_ITS | Patient Health Record ---
Author Organization [facility] Address [address] [place], [place] [address] Care Team Providers Care Teacher Resource Name Role Phone DANNY SALAZAR Unavailable [phone] Odin Alex Unavailable Unavailable Allergies No Known Allergies Reason For Referral No Information Medications Medication SIG (Take, Route, Frequency, Duration) Notes Start Date End Date Status terbinafine 250 MG Oral Tablet ORAL terbinafine 250 MG Oral TabletOriginal Medicationterbinafine 250 MG Oral Tablet *Reorder from [employer] for eRx and Interaction Alerts* 04/12/2021 Active Immunizations Vaccine Route Administration Date Status Comme nts Influenza, high dose seasonal Unknown 10/30/2023 Admini stered Plan Of Treatment Next Appt Details Provider Name:DANNY BELLO, 02/10/2025 11:10:00 AM, [address], [place], [place], [id number], Insurance Providers Payer Name Payer Address Payer Phone Subscriber Number Group Number Insured Name Patient Relationship to Insured Coverage Start Date Coverage End Date [employer] [address] [place] [address] [phone] [id number] MESFIN CASTAÑEDA Self - patient is the insured
--- OUTSIDE RECORDS SUMMARY | 2025-02-06 19:33 | XMS_ITS | Patient Health Summary ---
Author Organization [facility] Address [address] [place] [address] Care Team Providers Care Serials Librarian Name Role Phone Odin Alex MD Primary Care Provider [phone] Leo Wang MD Unavailable [phone] Leo Wang MD Unavailable [phone] Note from [facility],non-owned Affiliates and Associated Physician Practices is amultiple site organization consisting of ambulatory clinics and hospital sitesin [place], [place], [place] and [place]. This disclosure is being madepursuant to the Care Everywhere program and may not contain all information available regarding this patient. Last updated 18.[facility] Allergies No known active allergies Medications * [...] fluticasone propionate (Flonase) 50 MCG/ACT nasal spray Lorraine 2 (two) sprays into each nostril once [...] 2 WEEKSOFF, THEN 2 WEEKS AGAIN * ALPRAZolam (Xanax) 0.25 MG tablet(Started 08/19/2024) [...] Take 1 (one) tablet by mouth once * montelukast (Singulair) 10 MG tablet(Started 12/24/2024) Take 1 tablet by mouth once daily 2 refills by 12/24/2025 * lffqqss-wjbhlehhfdd-nqdcldmvxw (Breztri Aerosphere) 160-9-4.8 MCG/ACT inhaler (Started 01/26/2025) Inhale 2 puffs by mouth twice daily 1 refill by 01/26/2026 Ended Medications* Breztri Aerosphere 160-9-4.8 MCG/ACT inhaler(Started 07/27/2024)(Discontinued) Inhale 2 puffs by mouth twice daily 1 refill by 07/27/2025 Active Problems Problem Noted Date Diagnosed Date [...] atrial flutter 07/27/2017 Anticoagulation management encounter 06/28/2017 custodial current use of antiarrhythmic drug S/P ablation [...] Comments Blood Pressure 126/80 12/13/2024 3:36 PM [employer] Pulse 82 12/13/2024 3:36 PM [employer] Temperature 36.3 C (97.4 F) 12/13/2024 3:36 PM [employer] Respiratory Rate 20 12/13/2024 3:36 PM [employer] Oxygen Saturation 96% 12/13/2024 3:36 PM [employer] room air Inhaled Oxygen Concentration - - Weight 119.3 kg (263 lb) 12/13/2024 3:36 PM [employer] Height 182.9 cm (6') 12/13/2024 3:36 PM [employer] Body Mass Index 35.67 12/13/2024 3:36 PM [employer] Procedures * XR CHEST 2VW(Performed 12/13/2024) Performed [...] * XR Chest 2Vw (12/13/2024 2:58 PM [employer]) Only the most recent of3 resultswithin the time period is included. Anatomical Region Laterality Modality Chest Computed Radiogr aphy 12/13/2024 3:01 PM [employer] Impressions 12/13/2024 3:01 PM [employer] IMPRESSION: No acute disease. > Interpreting Provider: Jean-Pierre Sepulveda MD on 12/13/2024 3:01 PM Narrative 12/13/2024 3:01 PM [employer] Chest Two Views History: R06.00: Dyspnea, unspecified [...] TITRATION (03/27/2023 11:59 PM CDT) Narrative [facility] - 03/27/2023 11:59 PM CDT Aminah Gaxiola MD 04/04/2023 4:18 PM [facility] CPAP TITRATION POLYSOMNOGRAPHY REPORT Name: Mesfin Castañeda Date of : 1945 Date of Test: 03/26/2023 Date of interpretation: 04/01/2023 Referring Physician: Chilango Irwin NP CLINICAL INDICATION: Patient with a diagnosis of severe sleep apnea established with a prior home sleep study with AHI of 33/ hr. On auto CPAP at 10-18 cm water with download showing increased AHI of more than 10 and with concern for central apnea and this study is for titration. Patient took 5 mg of Ambien before sleep. PROCEDURE: Overnight blending technician attended polysomnography was carried out utilizing continuous digital monitoring at the [facility] with a CPAP titration Protocol. Montage included measurements of EEG (electroencephalography), EOG (electro-oculography), EMG (electromyography), EKG, nasal and oral airflow, respiratory effort, (abdominal and rib cage movement), oxygen saturation, snoring sounds, body position, video monitoring and leg movements. All data was visually scored and analyzed by standard criteria. All events are scored according to the current AASM criteria. IA. Hypopneas have a 30% [...] events and spontaneous arousals. Sleep Stages N1 Sleep: 1.4% N2 Sleep: 95.9 % N3 Sleep: 2.7 % REM Sleep: 0% Respiratory monitoring: CPAP titration was started at 10 cm and titrated up to 11 cm for eradication of apneas, hypopneas and snoring. Due to poor sleep and intolerance to the CPAP pressure it was decreased to 8 cm water and then changed to BiPAP starting at a pressure of 10/6 cm water for patient comfort and titrated to a pressure of 16/12 cm water . All CPAP and BiPAP pressures were adequate in controlling the sleep disorder breathing. Although BiPAP was better tolerated .At [...] no obstructive or residual central events seen. Although patient had poor tolerance to CPAP and REM sleep was not observed during that test with decreased sleep efficiency of 4 hours . 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 FOLLOW UP: Follow up with ordering physician to discuss results. Please call [phone] if there is any question regarding this patient's care. Aminah Gaxiola M.D. Lead [employer]man [employer] [facility] Diplomat [employer] [employer] of Sleep Medicine (DABSM,) Diplomat Pulmonar, Critical Care and Sleep Medicine (ABIM) Procedure Note Aminah Gaxiola MD - 03/27/2023 11:59 PM CDT [facility] CPAP TITRATION POLYSOMNOGRAPHY REPORT Name: Mesfin Castañeda [...] mg of Ambien before sleep. PROCEDURE: Overnight blending technician attended polysomnography was carried out utilizingcontinuous digital monitoring at the [facility] with a CPAPtitration Protocol. Montage [...] and heated humidifier. Mask used in the [employer] F20 Medium. Patient should be scheduled [...] on the overnight PSGincluding the patient questionnaire, blending technician notes and all associatedtabulated data. FOLLOW UP: Follow up with ordering physician to discuss results. Please call [phone] if there is any question regarding this patient'scare. Aminah Gaixola M.D. Lead [employer] [facility] Diplomat [place] [employer] of Sleep Medicine (DABSM,) Diplomat Pulmonar, Critical Care and Sleep Medicine (ABIM) Lou Irwin [employer]ODGING [employer]AC[employer]ITIES ATTENDANT-[facility] RHETT NAYLOR [facility] * DERMATOPATHOLOGY (01/03/2023 12:00 AM [facility]) Case Report Dermatopathology Report Case: [id number] Authorizing Provider: Radha Salinas PA-C Collected: 01/03/2023 12:00 AM Ordering Location: [facility] DermPath Lab Received: 01/06/2023 07:50 AM Pathologist: Gail Lee MD Specimen: Skin, right ventral lateral proximal forearm triangulation: 8cm to lateral epicondyle 4:03 PM [facility] DERMATOPATHOLOGY LABORATORY Final Diagnosis Specimen A. 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 Neoplasm of Uncertain Behavior vs. Actinic Keratosis vs. Squamous Cell Carcinoma 3 4:03 PM [facility] DERMATOPATHOLOGY LABORATORY Gross Description Specimen A: Received is one formalin filled container labeled with the patient's name and designated right ventral lateral proximal forearm triangulation: 8cm to lateral epicondyle. The specimen consists of a shave biopsy measuring 9x9x3 mm. Jar 0. 4:03 PM [facility] DERMATOPATHOLOGY LABORATORY Microscopic Description Specimen A. SKIN, right ventral lateral proximal forearm triangulation: 8cm to lateral epicondyle: The epidermis shows parakeratosis, full thickness disorderly maturation of keratinocytes, mitoses at different levels, and dyskeratotic cells. 4:03 PM [facility] DERMATOPATHOLOGY LABORATORY Disclaimer An external and internal positive and negative controls are appropriate for the histochemical, immunohistochemical and immunofluorescence stain(s) in this case (if any), except where stated explicitly. The performance characteristics of the stain(s) cited in this report were developed and its performance characteristic determined by the Dermatopathology Laboratory at [facility], directed by Dr. Valentin Cheatham. These tests need not be, and therefore are not, approved by the [place] Food and Drug Administration. The tests are used for clinical purposes. Billing Codes Specimen Charges Stain Charges 06443 1 3 4:03 PM [facility] [facility] DERMATOPATHOLOGY LABORATORY Embedded Images 3 4:03 PM [employer] DERMATOPATHOLOGY LABORATORY Pathology/Cytolog y TISSUE SPECIMEN FROM SKIN / Unknown 01/03/2023 01/06/2023 7:50 AM [employer] Radha Salinas PA-C LAB - PATHOLOGY/CYTO LOGY ORDERABLES DERMATOPATHOLOGY LABORATORY [facility] - Department of Dermatology [address], [address] [phone] * COMPLETE PFT W/WO BRONCHODILATOR (08/23/2022 12:00 PM CDT) 08/23/2022 12:0 0 PM CDT Narrative Procedure Note Alfonzo Sims MD - 08/23/2022 12:59 PM CDT [facility] PULMONARY FUNCTION TEST REPORT PATIENT: MESFIN CASTAÑEDA MR#: [id number] ADMIT DATE: 08/23/2022 CSN: [id number] DATE OF PROCEDURE: 08/23/2022 :1945 PHYSICIAN: Alfonzo Sims MD REFERRING PHYSICIAN: LOE WANG FINDINGS: 1. Baseline spirometry reveals a [...] for lung volume. Alfonzo Camarillo MD YONATHAN/MODL #:[id number] Leo Wang MD RESPIRATORY THERA PY ORDERABLES [facility] * CPAP/BIPAP TITRATION (07/16/2021 12:00 PM CDT) 07/16/2021 12:0 0 PM CDT Narrative Procedure Note Fernie Noble MD - 07/17/2021 11:59 PM CDT [facility] POLYSOMNOGRAPHY PATIENT: MESFIN CASTAÑEDA MR#: [id number] ADMIT DATE: 07/17/2021 CSN: [id number] DISCH DATE: ROOM: PHYSICIAN: Fernie Noble MD [...] Weight loss recommended. Fernie Noble MD MSD/MODL #:[id number] Yasmeen Frances MD SLEEP CENTER ORDERAB LES Performing Organization Address City/[facility] Co de Phone Number [facility] REBECA * COMPLETE PFT W/WO BRONCHODILATOR (04/23/2019 12:13 PM CDT) Narrative [facility] RESULT SCAN - 04/23/2019 12:13 PM CDT Yasmeen Frances MD 04/23/2019 12:13 PM Report: Forced vital capacity is moderately reduced which is 2.90 L and 60 percent predicted. FEV1 is severely reduced which is 1.32 L and 37 percent predicted. There is significant bronchodilator response with improvement of 20 percent in FEV1 after bronchodilator. Ratio FEV1 FVC is reduced as well which is 45 percent. Flow in the mid expiratory and is severely limited which is 15 percent predicted. There is significant bronchodilator response of improvement by 13 percent in the mid expiratory flow. Vital capacity is moderately reduced which is 2.98 L and 62 percent predicted. Total lung capacity is within acceptable range of 7.09 L and 98 percent predicted. There is evidence of air entrapment with residual volume being 148 percent predicted. DLCO is moderately reduced which is 69 percent predicted. When it was adjusted for alveolar volume it became 91 percent predicted. Upon inspection of the flow volume curve there is severe scooping of the expiratory limb suggestive of severe obstructive lung disease. Interpretation: This PFT is suggestive of severe obstructive lung pattern. There is significant bronchodilator response and evidence of air entrapment. 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 Asthma cannot be conclusively ruled out. Please correlate clinically. Yasmeen Frances MD RESPIRATORY THERAPY ORDERABLES [facility] RESULT SCAN Care Teams Serials Librarian Relationship Specialty Start Date End Date Odin Alex MD [address] [place] [address] [address] [place] [address] PCP - General Internal Medicine 04/12/19 [place] [address] [address] [place] [id number] PCP - Attributed-Murray RUBIO 01/01/25 [place] [address] [facility] [address] [place] [id number] Pulmonary Disease 05/09/22
--- OUTSIDE RECORDS SUMMARY | 2025-02-06 19:33 | XMS_ITS | Data Portability ---
Author Organization [place] [facility], Main Office Address [address] [place] [address] Assessment No assessment recorded. Plan of Treatment Reminders Order Date Submit Date Provider Last Modified By Organization Details Last Modified Time Details Appointments None recorded. Lab lipid panel, serum 2023 024 Not available 4 16:56:55 CMP, serum or plasma 2023 024 [email or web address] Not available 4 16:56:55 HbA1c (hemoglobin A1c), blood 2023 024 [email or web address] Not available 4 16:56:55 TSH, serum or plasma 2023 024 Not available 4 16:56:55 T4, free, serum 2023 024 Not available 4 16:56:55 CBC w/ auto diff 2023 024 [email or web address] Not available 4 16:56:54 PSA, serum or plasma 2023 024 [email or web address] Not available 4 11:53:45 vitamin B12, serum 2023 024 [email or web address] Not available 4 11:53:45 magnesium, serum or plasma 2023 024 [email or web address] Not available 4 11:53:45 lipid panel, serum 2023 024 [email or web address] Not available 4 16:54:06 CMP, serum or plasma 2023 024 [email or web address] Not available 4 11:53:45 TSH, serum or plasma 2023 024 [email or web address] Not available 4 16:53:40 T4, free, serum 2023 024 [email or web address] Not available 4 16:53:51 CBC w/ auto diff 2023 024 Not available 4 16:53:25 lipid panel, serum 2023 024 MICHELLE Not available 4 14:14:31 CMP, serum or plasma 2023 024 MICHELLE Not available 4 14:14:45 TSH, serum or plasma 2023 024 MICHELLE Not available 4 14:38:40 T4, free, serum 2023 024 MICHELLE Not available 4 14:17:00 CBC w/ auto diff 2023 024 MICHELLE Not available 4 13:37:17 Referral None recorded. Procedures None recorded. Surgeries None recorded. Imaging None recorded. Medication Orders methylpredn isolone 4 mg tablets in a dose pack 2023 024 [email or web address] [facility] [address] [place], [address], 5 12:19:37 Patient TargetsNo targets recorded. Patient Instructions Encounter Date Encounter Id Patient Instructions Last Modified By Organization Details Last Modified Time 12/30/2023 [id number] Hypertension -atrial fibrillation-hyperl ipidemia -spinal stenosis lumbar [...] with voice recognition software. Occasional wrong-word or s ound-a-like substitutions may have occurred due to the inherent limitations of voice recognition software. Read the chart carefully and recognize, using context, where substitutions have occurred. Keep Appt: Fri 01:50 PM Meeker [email or web address] Not available 12/30/2023 15:25:31 01/19/2024 [id number] Cluster headache s or Daniels's headaches. Will [...] with voice recognition software. Occasional wrong-word or s ound-a-like substitutions may have occurred due to the inherent limitations of voice recognition software. Read the chart carefully and recognize, using context, where substitutions have occurred. Keep Appt: Fri 01:50 PM Meeker [email or web address] Not available 01/19/2024 10:47:03 04/27/2024 [id number] Follow-up hypertension, paroxysmal atrial fibrillation, hyperlipidemia, chronic [...] with voice recognition software. Occasional wrong-word or s ound-a-like substitutions may have occurred due to the inherent limitations of voice recognition software. Read the chart carefully and recognize, using context, where substitutions have occurred. [email or web address] Not available 04/27/2024 15:31:43 09/09/2024 [id number] dementia rating scale-2* [email or web address] Not available 09/09/2024 12:50:44 alcohol misuse* [email or web address] Not available 09/09/2024 12:50:44 depression screening* [email or web address] Not available 09/09/2024 12:50:44 Timed Up and Go test (TUG)* [email or web address] Not available 09/09/2024 12:50:44 multi-dimensiona l health assessment questionnaire* Not available 09/09/2024 12:50:44 Personalized Hea lt Plan and Screening Recommendations Advance Directives - Do you have one? No Advance Directives - Do we have your [...] 10% of your body weight Physical activity: Need more exercise/physical activity Nutrition: Good Average Fall Risk (screened today): [...] no recommendations Ref er to attached handout P re-diabetes: After Your Visit Drastically limit sugar and products made with any type of flour (bread, pasta, cereal, cookies, crackers, etc.) Secondary Prevention/Interven tion (detects treatable diseases before they may cause symptoms, disability, or ) Prostate Cancer Screening: Colon Cancer Screening: Colonoscopy Date Screening Last Performed: _2014___ Eye Disease Screening: Dementia Risk: Low I have no recommendations Depression Screening: Negative Active diagnosis, Continue current treatment plan [email or web address] Not available 09/09/2024 12:28:01 Medicare wellnes s [...] with voice recognition software. Occasional wrong-word or s ound-a-like substitutions may have occurred due to the inherent limitations of voice recognition software. Read the chart carefully and recognize, using context, where substitutions have occurred. Not available 09/09/2024 12:51:23 01/11/2025 [id number] Coronary artery disease, paroxysmal atrial fibrillation, hypertension as well as chronic obstructive lung disease clinically stable. Will continue on current medications. Will try to set the patient up for a 6 minute walk test for an ability to get a smaller oxygen container. Clinically stable otherwise. Also needs a disability placard for himself as well as his . Continue on current Rx follow-up in four months Additional Orders - Directives - Recommendations 1. needs a disability placard for himself as well as far as . 2. Scheduled to see Dr. Hawk in the next several weeks. See if they can schedule him for a 6 minute walk test so that he can get his oxygen refills Follow Up: 4 Months Approximate Date: 05/11/2025 Portions of record are template driven. When necessary additional context will be provided. Additionally some portions have been created with voice recognition software. Occasional wrong-word or s ound-a-like substitutions may have occurred due to the inherent limitations of voice recognition software. Read the chart carefully and recognize, using context, where substitutions may have occurred. Created: Odin Alex M.D. 01.11.2025 11:39 AM [email or web address] Not available 01/11/2025 12:39:30 Reason for Referral None Reported. Results Created Date Observation Date Name Description Value Unit Range Abnormal Flag Note LastModifiedBy Organization Detail LastModifiedTime 01/20/20 24 01/20/2024 CBC/C OMPLE TE BLD COUNT W/DIF F white blood cells 12.5 x10'3 /uL 4.2-10 .8 high Not Available [facility] (Lab) [address] [place], [address], 01/20/2024 13:37:17 01/20/20 24 01/20/2024 CBC/C OMPLE TE BLD COUNT W/DIF F red blood cells 5.14 x10'6 /uL 4.10-5 .80 Not Available [facility] (Lab) [address] [place], [address], 01/20/2024 13:37:17 01/20/20 24 01/20/2024 CBC/C OMPLE TE BLD COUNT W/DIF F hemoglobin 15.7 g/dL 13.2-1 7.0 Not Available [facility] (Lab) [address] [place], [address], 01/20/2024 13:37:17 01/20/20 24 01/20/2024 CBC/C OMPLE TE BLD COUNT W/DIF F hematocrit 49.3 % 39.3-5 0.0 Not Available [facility] (Lab) [address] [place], [address], 01/20/2024 13:37:17 01/20/20 24 01/20/2024 CBC/C OMPLE TE BLD COUNT W/DIF F mean red cell volume 95.9 fL 80.0-9 7.0 Not Available [facility] (Lab) [address] [place], [address], 01/20/2024 13:37:17 01/20/20 24 01/20/2024 CBC/C OMPLE TE BLD COUNT W/DIF F mean red cell hemoglobin 30.5 pg 27.0-3 3.0 Not Available [facility] (Lab) [address] [place], [address], 01/20/2024 13:37:17 01/20/20 24 01/20/2024 CBC/C OMPLE TE BLD COUNT W/DIF F mean RBC HGB concentratio n 31.8 g/dL 31.0-3 6.0 Not Available [facility] (Lab) [address] [place], [address], 01/20/2024 13:37:17 01/20/20 24 01/20/2024 CBC/C OMPLE TE BLD COUNT W/DIF F red cell distribution width 13.8 % 11.8-1 5.5 Not Available [facility] (Lab) [address] [place], [address], 01/20/2024 13:37:17 01/20/20 24 01/20/2024 CBC/C OMPLE TE BLD COUNT W/DIF F platelets 509 x10'3 /uL 150-40 0 high Not Available [facility] (Lab) [address] [place], [address], 01/20/2024 13:37:17 01/20/20 24 01/20/2024 CBC/C OMPLE TE BLD COUNT W/DIF F mean platelet volume 9.3 fL 9.0-12 .4 Not Available [facility] (Lab) [address] [place], [address], 01/20/2024 13:37:17 01/20/20 24 01/20/2024 CBC/C OMPLE TE BLD COUNT W/DIF F neutrophils 69.8 % 39.0-7 2.0 Not Available [facility] (Lab) [address] [place], [address], 01/20/2024 13:37:17 01/20/20 24 01/20/2024 CBC/C OMPLE TE BLD COUNT W/DIF F lymphocytes 13.0 % 16.0-4 7.0 low Not Available [facility] (Lab) [address] [place], [address], 01/20/2024 13:37:17 01/20/20 24 01/20/2024 CBC/C OMPLE TE BLD COUNT W/DIF F monocytes 9.8 % 5.0-12 .0 Not Available [facility] (Lab) [address] [place], [address], 01/20/2024 13:37:17 01/20/20 24 01/20/2024 CBC/C OMPLE TE BLD COUNT W/DIF F eosinophils 5.6 % 1.0-7. 0 Not Available [facility] (Lab) [address] [place], [address], 01/20/2024 13:37:17 01/20/20 24 01/20/2024 CBC/C OMPLE TE BLD COUNT W/DIF F basophils 1.0 % 0.0-2. 0 Not Available [facility] (Lab) [address] [place], [address], 01/20/2024 13:37:17 01/20/20 24 01/20/2024 CBC/C OMPLE TE BLD COUNT W/DIF F immature granulocytes 0.8 % 0.00-0 .50 high Not Available [facility] (Lab) [address] [place], [address], 01/20/2024 13:37:17 01/20/20 24 01/20/2024 CBC/C OMPLE TE BLD COUNT W/DIF F neutrophils, absolute count 8.71 x10'3 /uL 1.5-8. 0 high Not Available [facility] (Lab) [address] [place], [address], 01/20/2024 13:37:17 01/20/20 24 01/20/2024 CBC/C OMPLE TE BLD COUNT W/DIF F lymphocytes, absolute count 1.62 x10'3 /uL 1.07-3 .43 Not Available [facility] (Lab) [address] [place], [address], 01/20/2024 13:37:17 01/20/20 24 01/20/2024 CBC/C OMPLE TE BLD COUNT W/DIF F monocytes, absolute count 1.23 x10'3 /uL 0.29-0 .99 high Not Available [facility] (Lab) [address] [place], [address], 01/20/2024 13:37:17 01/20/20 24 01/20/2024 CBC/C OMPLE TE BLD COUNT W/DIF F eosinophils, absolute count 0.70 x10'3 /uL 0.02-0 .53 high Not Available [facility] (Lab) [address] [place], [address], 01/20/2024 13:37:17 01/20/20 24 01/20/2024 CBC/C OMPLE TE BLD COUNT W/DIF F basophils, absolute count 0.13 x10'3 /uL 0.01-0 .08 high Not Available [facility] (Lab) [address] [place], [address], 01/20/2024 13:37:17 01/20/20 24 01/20/2024 CBC/C OMPLE TE BLD COUNT W/DIF F immature granulocytes ,absolute 0.10 x10'3 /uL 0.00-0 .05 high Not Available [facility] (Lab) [address] [place], [address], 01/20/2024 13:37:17 01/20/20 24 01/20/2024 CBC/C OMPLE TE BLD COUNT W/DIF F nucleated red blood cells 0.0 % -0 Not Available [facility] (Lab) [address] [place], [address], 01/20/2024 13:37:17 01/20/20 24 01/20/2024 CBC/C OMPLE TE BLD COUNT W/DIF F NRBC# 0.00 x10'3 /uL Not Available [facility] (Lab) [address] [place], [address], 01/20/2024 13:37:17 01/20/20 24 01/20/2024 LIPID PANEL cholesterol 117 mg/dL 140-19 9 low NIH JESS NSUS RECOM MENDA TION FOR ALTAGRACIA STERO L: ADULT CHILD LOW RISK: <200 <170 BORDE RLINE : <200- 239 ----- HIGH RISK: >240 >200 Not Available [facility] (Lab) [address] [place], [address], 01/20/2024 14:14:31 01/20/20 24 01/20/2024 LIPID PANEL triglyceride s 142 mg/dL 0-150 NIH JESS NSUS REPOR T RECOM MENDA TION FOR TRIGL YCERI SONIA: ADULT CHILD LOW RISK: <150 ----- BODER LINE: 150-1 99 ----- HIGH RISK: >200 ----- Not Available [facility] (Lab) [address] [place], [address], 01/20/2024 14:14:31 01/20/20 24 01/20/2024 LIPID PANEL HDL cholesterol 28 mg/dL 40- low Not Available [facility] (Lab) [address] [place], [address], 01/20/2024 14:14:31 01/20/20 24 01/20/2024 LIPID PANEL [...] WILL NOT BE REPOR BERTRAM. Not Available [facility] (Lab) [address] [place], [address], 01/20/2024 14:14:31 01/20/20 24 01/20/2024 COMPR EHENS RORY METAB OLIC PANEL sodium 138 mmol/ L 137-14 5 Not Available [facility] (Lab) [address] [place], [address], 01/20/2024 14:14:45 01/20/20 24 01/20/2024 COMPR EHENS RORY METAB OLIC PANEL potassium 4.7 mmol/ L 3.5-5. 1 Not Available [facility] (Lab) [address] [place], [address], 01/20/2024 14:14:45 01/20/20 24 01/20/2024 COMPR EHENS RORY METAB OLIC PANEL chloride 97 mmol/ L 98-107 low Not Available [facility] (Lab) [address] [place], [address], 01/20/2024 14:14:45 01/20/20 24 01/20/2024 COMPR EHENS RORY METAB OLIC PANEL carbon dioxide 34 mmol/ L 22-30 high Not Available [facility] (Lab) [address] [place], [address], 01/20/2024 14:14:45 01/20/20 24 01/20/2024 COMPR EHENS RORY METAB OLIC PANEL anion gap 11.7 mmol/ L 14-22 low Not Available [facility] (Lab) [address] [place], [address], 01/20/2024 14:14:45 01/20/20 24 01/20/2024 COMPR EHENS RORY METAB OLIC PANEL glucose 126 mg/dL 70-99 high Not Available [facility] (Lab) [address] [place], [address], 01/20/2024 14:14:45 01/20/20 24 01/20/2024 COMPR EHENS RORY METAB OLIC PANEL BUN 29 mg/dL 8-19 high Not Available [facility] (Lab) [address] [place], [address], 01/20/2024 14:14:45 01/20/20 24 01/20/2024 COMPR EHENS RORY METAB OLIC PANEL creatinine 1.00 mg/dL 0.66-1 .25 Not Available [facility] (Lab) [address] [place], [address], 01/20/2024 14:14:45 01/20/20 24 01/20/2024 COMPR EHENS RORY METAB OLIC PANEL GFR >60 Refer ence Range : [place] ge GFR Healt hy Adult : [...] or ethni c subgr oups, such as sc nics. Outsi de the valid ated barbra [...] calcu lator is avail able on the [facility] websi te: [email or web address] :[email or web address] [email or web address]/gf r_[email or web address] culat or Not Available [facility] (Lab) [address] [place], [address], 01/20/2024 14:14:45 01/20/20 24 01/20/2024 COMPR EHENS RORY METAB OLIC PANEL alkaline phosphatase 145 U/L 38-126 high Not Available [facility] (Lab) [address] [place], [address], 01/20/2024 14:14:45 01/20/20 24 01/20/2024 COMPR EHENS RORY METAB OLIC PANEL alanine aminotransfe rase 88 U/L 0-50 high Not Available [facility] (Lab) [address] [place], [address], 01/20/2024 14:14:45 01/20/20 24 01/20/2024 COMPR EHENS RORY METAB OLIC PANEL aspartate aminotransfe rase 71 U/L 15-46 high Not Available [facility] (Lab) [address] [place], [address], 01/20/2024 14:14:45 01/20/20 24 01/20/2024 COMPR EHENS RORY METAB OLIC PANEL bilirubin, total 0.80 mg/dL 0.20-1 .30 Not Available [facility] (Lab) [address] [place], [address], 01/20/2024 14:14:45 01/20/20 24 01/20/2024 COMPR EHENS RORY METAB OLIC PANEL calcium 10.0 mg/dL 8.4-10 .2 Not Available [facility] (Lab) [address] [place], [address], 01/20/2024 14:14:45 01/20/20 24 01/20/2024 COMPR EHENS RORY METAB OLIC PANEL total protein 7.9 g/dL 6.3-8. 2 Not Available [facility] (Lab) [address] [place], [address], 01/20/2024 14:14:45 01/20/20 24 01/20/2024 COMPR EHENS RORY METAB OLIC PANEL albumin 3.8 g/dL 3.0-4. 4 Not Available [facility] (Lab) [address] [place], [address], 01/20/2024 14:14:45 01/20/20 24 01/20/2024 COMPR EHENS RORY METAB OLIC PANEL globulin 4.1 g/dL 2.6-4. 2 Not Available [facility] (Lab) [address] [place], [address], 01/20/2024 14:14:45 01/20/20 24 01/20/2024 COMPR EHENS RORY METAB OLIC PANEL A/G ratio 0.9 ratio 1.0-2. 0 low Not Available [facility] (Lab) [address] [place], [address], 01/20/2024 14:14:45 01/20/20 24 01/20/2024 T4 FREE free T4 1.31 NG/dL 0.78-2 .19 Not Available [facility] (Lab) [address] [place], [address], 01/20/2024 14:17:00 01/20/20 24 01/20/2024 TSH thyroid-stim ulating hormone 1.180 uIU/m L 0.465- 4.680 Not Available [facility] (Lab) [address] [place], [address], 01/20/2024 14:38:40 01/20/20 24 01/20/2024 HEMOG LOBIN A1C HA1C 6.9 % 4.0-6. 0 high Diabe sanjuana Scree tyrell Crite diane: <5.7% Consi stent with absen ce of diabe sanjuana 5.7-6 .4% Consi stent with incre ased risk for diabe sanjuana (pred iabet es) >OR=6 .5% Consi stent with diabe sanjuana REFER ENCE: Diabe sanjuana Care 2016, 39(Berrios ppl.1 ):s13 -s22 Not Available [facility] (Lab) [address] [place], [address], 01/20/2024 20:29:19 12/23/19 24 12/23/2023 US, doppl er, arter ial No observ ation record ed. [email or web address] [facility] [address], [place], [address], 12/24/2023 07:03:03 12/24/19 24 12/23/2023 US, doppl er, venou s No observ ation record ed. [email or web address] [facility] [address], [place], [address], 01/13/2024 14:04:23 01/16/20 24 01/16/2024 CT, brain , w/o contr ast No observ ation record ed. [address] [facility], [place], [address], 01/17/2024 06:52:37 01/16/20 24 01/16/2024 XR, chest , 1 view No observ ation record ed. [address], [place], [address], 01/17/2024 06:53:02 03/08/20 24 03/05/2024 CT, chest , w/o contr ast No observ ation record ed. [address] [facility], [place], [address], 03/08/2024 10:07:32 06/01/20 24 [facility] [address] [address] Patien t Name: MESFIN WILEY Access ion #: [id number] Sex: M : 1944 4 Dictat ed By: Jesús Nunez Attend ing Physic kareen: SHAUNNA ALEX CE Orderi Physic kareen: SHAUNNA ALEX CE Exam Date: 2023 10:45 AM Exam Name: US RETROP BERNADETTE/KI DNEY Admitt ing Diagno sis(es ): INDICA [...] at 2023 13:36: 32 PM Page 1 [email or web address] [facility] (Imaging) [address] [place], [address], 06/01/2024 17:01:32 11/30/20 24 11/30/2024 US, abdom en No observ ation record ed. [email or web address] [facility] [address], [place], [address], 11/30/2024 16:41:01 Result Notes None recorded. Problems Name Problem SNOMED Code Status Onset Date Resolution Date Notes Provider Name and Address Organization Details Recorded Time Acute bronchiti s 25839072 Active 2018 Not Available [facility] 3 09:17:33 Benign essential hypertens ion 5335972 Active Not Available [facility] 3 09:17:33 Rectal hemorrhag e 41620678 Active Not Available [facility] 3 09:17:33 Hyperchol esterolem ia 93981558 Active Not Available [facility] 3 09:17:33 Chronic obstructi ve pulmonary disease 11633325 Active 2020 Not Available [facility] 3 09:17:33 Spinal stenosis of lumbar region 41948195 Active 2020 Not Available [facility] 3 09:17:34 Gastroeso phageal reflux disease 136464692 Active Not Available [facility] 3 09:17:34 Left inguinal hernia 642528201 Active Not Available [facility] 3 09:17:34 Disorder of prostate 96179011 Active 2021 Not Available [facility] 3 09:17:34 Hypoglyce joesph 396379677 Active Not Available [facility] 3 09:17:34 Prostate specific antigen above reference range 034491209 Active Not Available [facility] 3 09:17:34 Osteoarth ritis 403384471 Active Not Available [facility] 3 09:17:34 Obesity 312279506 Active 2021 Not Available [facility] 3 09:17:35 Anxiety 01961513 Active 2019 Not Available [facility] 3 09:17:35 Atrial fibrillat ion 65666779 Active Not Available [facility] 3 09:17:35 Hyperlipi demia 68121610 Completed 202011/27/2021 Not Available [facility] 3 09:17:35 Obstructi ve sleep apnea syndrome 42216890 Active 2020 Not Available [facility] 3 09:17:35 COVID-19 136689001 Active 2021 Not Available [facility] 3 09:17:35 Effects of high altitude 44278438 Active 2021 Not Available [facility] 3 09:17:36 Obese class II 30336505659 4105 Active 2022 Odin Alex MD [address] [facility], [address], [place], [address] , [facility] 3 15:23:13 Chronic renal failure 21860079 Active 2022 Aracelis Martinez CMA null, [place] [facility] 3 11:31:19 Leukocyto sis 610575798 Active 2022 Aracelis Martinez CMA null, [place] [facility] 3 11:33:34 Diarrhea 31715088 Active 2022 Odin Alex MD [address], [address], [place], [address] , [facility] 3 16:29:58 Serum creatinin e above reference range 094373958 Active 2022 Odin Alex MD [address], [address], [place], [address] , [place] [facility] 3 10:51:32 Low back pain 412521876 Active 2022 Aracelis Martinez CMA null, [place] [facility] 3 15:20:53 Celluliti s of toe of right foot 75248432714 575675 Active 2022 Odin Alex MD [address], [address], [place], [address] , [place] [facility] 3 14:48:55 Chronic low back pain 612540491 Active 2022 Mitzi Beltrán null, [place] [facility] 3 15:33:51 Hyperglyc emia 06864455 Active 2023 Mitzi Beltrán null, [place] [facility] 4 15:29:38 Headache 94659930 Active 2023 Odin Alex MD [address], [address], [place], [address] , [place] [facility] 4 14:19:35 Liver enzymes level above reference range 807357901 Active 2023 DEBBIE Rolle, [place] [facility] 4 11:44:45 Depressiv e disorder 63197171 Active 2023 Odin Alex MD [address], [address], [place], [address] , [place] [facility] 4 12:14:38 Abnormal liver function 76744894 Active 2023 Mitiz Beltrán null, [place] [facility] 4 11:58:35 Hearing loss 53513427 Active 2023 Mitzi Beltrán null, [place] [facility] 4 12:56:05 Chronic cough 29149067 Active 2024 Aracelis Martinez CMA null, [place] [facility] 5 14:19:12 Coronary arteriosc lerosis 00301167 Active 2024 Odin Alex MD [address] [facility], [facility] [address], [place], [address] , [place] [facility] 5 12:33:22 Dyspnea 678830409 Active 2024 Aracelis Martinez, PROFESSOR OF LEGAL STUDIES null, [facility] 5 12:02:46 Problem Notes None recorded. Procedures Surgical History Date Name Laterality Status Provider Name and Address Organization Details Recorded Time 4 Medicare Wellness CPT Code, subsequent completed Caryn Macias RN [facility] [employer] [facility] 09/09/2024 12:20:33 3 Medicare Wellness CPT Code, subsequent completed Caryn Macias RN [facility] [employer] [facility] 08/26/2023 14:50:18 3 Advanced Care Planning completed Caryn Macias RN [facility] [employer] [facility] 08/26/2023 14:52:44 Imaging Results Imaging Date Name Status LastModified by Organization Details LastModified Time 12/23/2023 US, doppler, arterial completed [address] [facility] [address], [place], [address], 12/24/2023 07:03:03 12/23/2023 US, doppler, venous completed [email or web address] [facility] [address], [place], [address], 01/13/2024 14:04:23 01/16/2024 CT, brain, w/o contrast completed [address], [address], 01/17/2024 06:52:37 01/16/2024 XR, chest, 1 view completed [address], [address], 01/17/2024 06:53:02 03/05/2024 CT, chest, w/o contrast completed [address] [facility] [address] [address], [place], [address], 03/08/2024 10:07:32 06/01/2024 US, retroperitoneum completed [email or web address] [facility] (Imaging) [address], [place], [address], 06/01/2024 17:01:32 11/30/2024 US, abdomen completed [email or web address] [facility] [address], [place], [address], 11/30/2024 16:41:01 Procedure Notes None recorded. Medical Equipment None Reported. Allergies No known drug allergies Medications Name Sig Start Date Stop Date Status Note LastModified by Organization Details LastModified Time naltrexon e 1.5mg capsule One capsule by MOUTH TWICE DAILY 01/11 completed Not Available Not Available Not Available cyclobenz aprine 10 mg tablet TAKE 1 TABLET BY MOUTH THREE TIMES DAILY 11/19 completed Not Available Not Available Not Available amoxicill in 500 mg capsule Take 1 capsule 3 times a day by oral route for 10 days. 07/16 completed Not Available Not Available Not Available furosemid e 40 mg tablet TAKE 1 TABLET BY MOUTH ONCE DAILY active Not Available Not Available No t Available Norvasc 10 mg tablet Take 1 tablet [...] Avai lable pravastat in 40 mg tablet TAKE 1 TABLET BY MOUTH [...] t Available benzonata te 200 mg capsule TAKE 1 CAPSULE BY MOUTH THREE TIMES DAILY active Not Available Not Available No t Available hydrocodo ne 5 mg-acetam inophen 325 [...] tablet TAKE 2 TABLETS BY MOUTH ONCE DAILY AT 8 AM active Not Available Not Available No t Available dexametha sone 6 mg tablet TAKE 1 TABLET BY MOUTH ONCE DAILY 01/19 completed Not Available Not Available Not Available metoprolo l succinate ER 100 mg tablet,ex tended release 24 hr TAKE 1 TABLET BY MOUTH ONCE DAILY active Not Available Not Available No t Available valsartan 160 mg-hydroc hlorothia zide 12.5 mg tablet TAKE 1 TABLET BY MOUTH ONCE DAILY 01/11 completed Not Available Not Available Not Available prednison e 5 mg tablet TAKE [...] completed Not Available Not Available Not Available clopidogr el 75 mg tablet Take 1 tablet every day by oral route. active Not Available Not Available No t Available amlodipin e 5 mg tablet TAKE [...] 1 TABLET BY MOUTH THREE TIMES DAILY 2024 active Not Available Not Available Not Avai [...] pantopraz ole 40 mg tablet,de layed release TAKE 1 TABLET BY MOUTH ONCE DAILY active Not Available Not Available No t Available oseltamiv ir 75 mg capsule TAKE 1 CAPSULE BY MOUTH EVERY 12 HOURS active Not Available Not Available No t Available hydrochlo rothiazid e 12.5 mg capsule Take 1 capsule by mouth once daily 11/07 completed Not Available Not Available Not Available gabapenti n 300 mg capsule Take 1 capsule 3 times a day by oral route. active Not Available Not Available No t Available difloraso ne 0.05 % topical cream 01/11 completed Not Available Not Available Not Available folic [...] 1 CAPSULE BY MOUTH THREE TIMES DAILY active Not Available Not Available No t Available metoprolo l succinate ER 25 mg tablet,ex tended release 24 hr TAKE 1 TABLET BY MOUTH ONCE DAILY active Not Available Not Available No t Available methylpre dnisolone 4 mg tablets in a dose pack TAKE BY MOUTH DIRECTED ON INSIDE OF PACKAGE 01/11 completed Not Available Not Available Not Available albuterol sulfate HFA 90 mcg/actua tion [...] lable doxycycli ne hyclate 100 mg tablet TAKE 1 TABLET BY MOUTH EVERY 12 HOURS active Not Available Not Available No [...] strength Not Available Not Available Not Available Mucus Relief ER 600 mg tablet, extended release TAKE 1 TABLET BY MOUTH EVERY 12 HOURS active Not Available Not Available No t Available Eliquis 5 mg tablet TAKE 1 TABLET BY MOUTH TWICE DAILY active Not Available Not Available No t Available Spiriva Respimat 2.5 mcg/actua tion solution for inhalatio n INHALE 2 SPRAY(S) BY MOUTH ONCE DAILY active Not Available Not Available No t Available Willytri Aerospher e 160 mcg-9mcg- 4.8mcg/ac tuation HFA [...] Updated DateTime 4 179.07 cm 36.1 kg/m2 453587. 05 g 91 /min 97 [degF] 95 % 95 % 138 mm[Hg] 80 mm[Hg] [employer] 4 14:53:47 Date Recorded Body height Body mass index (BMI) Body weight Heart rate Body temperature Oxygen saturation Oxygen saturation in Arterial blood by Pulse oximetry Systolic blood pressure Diastolic blood pressure Provider Name and Address Organization Details Last Updated DateTime 4 177.8 cm 34.4 kg/m2 780123. 17 g 92 /min 97 [degF] 93 % 93 % 118 mm[Hg] 64 mm[Hg] [employer] 4 10:15:04 Date Recorded Body height Body mass index (BMI) Body weight Heart rate Body temperature Oxygen saturation Oxygen saturation in Arterial blood by Pulse oximetry Systolic blood pressure Diastolic blood pressure Provider Name and Address Organization Details Last Updated DateTime 4 177.8 cm 37.2 kg/m2 370792. 42 g 69 /min 97 [degF] 91 % 91 % 122 mm[Hg] 84 mm[Hg] [employer] 4 15:05:15 Date Recorded Body height Body mass index (BMI) Body weight Heart rate Body temperature Oxygen saturation Oxygen saturation in Arterial blood by Pulse oximetry Systolic blood pressure Diastolic blood pressure Provider Name and Address Organization Details Last Updated DateTime 4 177.8 cm 35.9 kg/m2 441939. 09 g 67 /min 97 [degF] 96 % 96 % 120 mm[Hg] 86 mm[Hg] VALERIA Dugan [facility] [employer] [facility] 4 12:14:36 Date Recorded Pain severity - 0-10 verbal numeric rating [Score] - Reported Provider Name and Address Organization Details Last Updated DateTime 09/09/2024 0 Caryn Macias RN [facility] [employer] [facility] 09/09/2024 12:20:54 Date Recorded Body height Body mass index (BMI) Body weight Heart rate Body temperature Oxygen saturation Oxygen saturation in Arterial blood by Pulse oximetry Systolic blood pressure Diastolic blood pressure Provider Name and Address Organization Details Last Updated DateTime 5 177.8 cm 36.2 kg/m2 002883. 28 g 54 /min 97 [degF] 84 % 84 % 138 mm[Hg] 84 mm[Hg] Katty Mcclain [facility] [employer] [facility] [employer] 5 12:18:02 Social History Question Answer Notes LastModified by Organization Details LastModified Time Tobacco Smoking Status Former Smoker Not Available [facility] 01/29/2023 09:12:54 Do You Have An Advance Directive? No Info Given Previously [email or web address] Information not available 09/09/2024 What Is Your Level Of Alcohol Consumption? None [email or web address] Information not available 09/09/2024 Are You Blind Or Do You Have Difficulty Seeing? No [id number] Information not available 01/29/2023 In The 14 Days Before Symptom Onset, Have You Had Close Contact With A Laboratory-conf irmed COVID-19 While That Case Was Ill? No MIGRATION.[id number] Information not available 01/29/2023 In The 14 Days Before Symptom Onset, Have You Had Close Contact With A Person Who Is Under Investigation For COVID-19 While That Person Was Ill? No MIGRATION.[id number] Information not available 01/29/2023 Are You Deaf Or Do You Have Serious Difficulty Hearing? Yes [email or web address] Information not available 08/26/2023 What Type Of Diet Are You Following? REGULAR MIGRATION.0301 [id number] Information not available 01/29/2023 Do You Or Have You Ever Used E-cigarettes Or Vape? Never Used Electronic Cigarettes MIGRATION.0301 [id number] Information not available 01/29/2023 Have There Been Any Changes To Your Family Or Social Situation? No [email or web address] Information not available 08/26/2023 What Is The Fluoride Status Of Your Home? Fluoridated MIGRATION.0301 [id number] Information not available 01/29/2023 When Did You Quit Smoking? 17+yearssincelast cigarette MIGRATION.0301 259442 Information not available 01/29/2023 Are There Any Guns Present In Your Home? Yes MIGRATION.0301 560045 Information not available 01/29/2023 Do You Use Insect Repellent Routinely? No [email or web address] Information not available 08/26/2023 Where Do You Live? [facility] [email or web address] Information not available 08/26/2023 Guns Present In The Home? Yes [email or web address] Information not available 08/26/2023 Are You Able To Care For Yourself? Yes [email or web address] Information not available 08/26/2023 Are You Blind Or Do Yo Have Difficulty Seeing? No [email or web address] Information not available 08/26/2023 Are You Deaf Or Do You Have Serious Difficulty Hearing? Yes Has Hearing Aids [email or web address] Information not available 08/26/2023 Live Alone Of With Others? With Others [email or web address] Information not available 08/26/2023 Do You Have A Medical Power Of Division Manager? No [email or web address] Information not available 08/26/2023 What Was The Date Of Your Most Recent Tobacco Screening? 09/09/2024 [email or web address] Information not available 09/09/2024 Do You Have Any Pets? No [email or web address] Information not available 08/26/2023 What Is Your Relationship Status? [email or web address] Information not available 08/26/2023 Do You Use Your Seat Belt Or Car Seat Routinely? Yes MIGRATION.0301 [id number] Information not available 01/29/2023 Do You Have Smoke And Carbon Monoxide Detectors In Your Home? Yes MIGRATION.0301 [id number] Information not available 01/29/2023 At What Age Did You Start Smoking Tobacco? 22 Quit In 2000 MIGRATION.0301 [id number] Information not available 01/29/2023 Are You Passively Exposed To Smoke? No [email or web address] Information not available 08/26/2023 Do You Or Have You Ever Used Smokeless Tobacco? Never Used Smokeless Tobacco MIGRATION.0301 302896 Information not available 01/29/2023 Are There Any Smokers In Your House? No [email or web address] Information not available 08/26/2023 How Much Tobacco Do You Smoke? 1 PPD MIGRATION.0301 717147 Information not available 01/29/2023 Do You Use Sunscreen Routinely? Yes MIGRATION.0301 [id number] Information not available 01/29/2023 Have You Recently Traveled Abroad? No MIGRATION.0301 962811 Information not available 01/29/2023 Sex: Unknown Functional Status Question Answer Note LastModified by Organizat ion Details LastModified Time Do you have difficulty walking or climbing stairs? Yes uses a cane [email or web address] Information not available 09/09/2024 Do you have transportation difficulties? No MIGRATION.[id number] Information not available 01/29/2023 Are you able to walk? YESASSIST uses a cane [email or web address] Information not available 08/26/2023 Do you have difficulty doing errands alone? No MIGRATION.332815 2588 Information not available 01/29/2023 Are you able to care for yourself? Yes MIGRATION.420758 4315 Information not available 01/29/2023 Do you have difficulty dressing or bathing? No MIGRATION.048274 2635 Information not available 01/29/2023 What is your exercise level? Occasional MIGRATION.053675 0360 Information not available 01/29/2023 Mental Status Question Answer Note LastModified by Organizat ion Details LastModified Time Do you have difficulty concentrating, remembering or making decisions? No MIGRATION.[id number] 6 Information not available 01/29/2023 Family History [...] HEARING PROBLEMS N MUMPS N SHINGLES N DEPRESSION (INCLUDING POST ) N BOWEL PROBLEMS N STROKE/TIA N ULCERS N BENIGN PROSTATIC [...] N CHRONIC PAIN SYNDROME N HYPOTHYROIDISM N CAROTID BLOCKAGE N CONSTIPATION N BACK / NECK PROBLEMS N HAVE YOU BEEN HOSPITALIZED OR SEEN IN PSYCHIATRIC IN THE PAST YEAR ? N ATHEROSCLEROSIS [...] pneumococcal polysaccharide PPV23 1 completed Katty stephens [facility] [employer] [facility] 08/26/2023 14:38:26 Influenza, high-dose, quadrivalent, PF 3 completed Katty stephens [facility] 08/26/2023 16:00:55 Influenza, split virus, trivalent, preservative 4 completed Not Available [facility] 01/29/2023 09:21:35 Influenza, split virus, trivalent, preservative 3 completed Not Available [facility] 01/29/2023 09:21:35 influenza, unspecified formulation 2 completed Not Available [facility] 01/29/2023 09:21:35 COVID-19, mRNA, LNP-S, PF, 30 mcg/0.3 mL dose 2 completed Not Available [facility] 01/29/2023 09:21:35 Influenza, split virus, quadrivalent, preservative 1 completed Not Available [facility] 01/29/2023 09:21:35 COVID-19, mRNA, LNP-S, PF, 30 mcg/0.3 mL dose 1 completed Not Available [facility] 01/29/2023 09:21:36 SARS-COV-2 (COVID-19) vaccine, UNSPECIFIED 1 completed Not Available [facility] 01/29/2023 09:21:36 SARS-COV-2 (COVID-19) vaccine, UNSPECIFIED 1 completed Not Available [facility] 01/29/2023 09:21:36 Influenza, high-dose, quadrivalent, PF 0 completed Not Available [facility] 01/29/2023 09:21:36 Influenza, high-dose, trivalent, PF 0 completed Not Available [facility] 01/29/2023 09:21:36 Influenza, high-dose, trivalent, PF 8 completed Not Available [facility] 01/29/2023 09:21:37 Influenza, high-dose, trivalent, PF 7 completed Not Available [facility] 01/29/2023 09:21:37 Influenza, split virus, quadrivalent, PF 6 completed Not Available [facility] 01/29/2023 09:21:37 Influenza, split virus, quadrivalent, preservative 5 completed Not Available [facility] 01/29/2023 09:21:37 Pneumococcal conjugate PCV 13 5 completed Not Available [employer] 01/29/2023 09:21:37 Influenza, high-dose, trivalent, PF 4 completed Odin Alex MD [address], [place], [address], [facility] 09/09/2024 12:50:45 Past Encounters Encounter ID Performer Location Encounter Start Date Encounter Closed Date Diagnosis/Indication Diagnosis SNOMED-CT Code Diagnosis ICD10 Code Diagnosis Note [id number] S[facility] [place] [address] [place] [address] y , [place] [address] 05/15/2021 00:00:00 05/15/2021 13:03:34 [id number] S_GMG Internal Med [facility] [address], [facility] [address] [place] [address] 08/01/2021 00:00:00 08/01/2021 12:38:03 [id number] S[facility] Internal [facility] [place] [address] [place] [address] y , [place] [address] 11/27/2021 00:00:00 11/27/2021 15:08:49 [id number] S[facility] Internal [facility] [place] [address] [place] [address] y , [place] [address] 03/26/2022 00:00:00 03/26/2022 15:38:17 [id number] S[facility] Internal [facility] [place] [address] [place] [address] [place] [address] 05/31/2022 00:00:00 05/31/2022 11:59:19 [id number] S[facility] Internal Med [place] [facility] [address] , [place] [address] 07/26/2022 00:00:00 07/26/2022 12:34:00 [id number] S[facility] Internal Med [place] [address] , [place] [address] 12/13/2022 00:00:00 12/13/2022 15:11:30 [id number] Odin Alex MD [facility] Internal Med [address] [place] [address] 03/28/2023 14:54:06 03/28/2023 15:35:24 Benign essential hypertension 5539988 I10 Hypercholesterolemia 136 41294 E78.00 Obstructiv e sleep apnea syndrome 21946574 G47.33 Gastroesop hageal reflux disease 152180592 K21.9 Obese class II 540887088 1 36721 E66.9 Atrial fibrillation 4943 6004 I48.91 Disorder of prostate 302 16578 N42.9 [id number] Odin Alex MD [facility] Internal Med [address] [place] [address] 08/26/2023 14:15:37 08/26/2023 15:31:19 Adult health examination 322827411 Z00.00 Screening for disorder 102453254 Z13.9 Benign ess ential hypertension 7550291 I10 Atrial fibrillation 4943 6004 I48.91 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 46974854 M48.062 Administra tion of influenza vaccine 84902021 Z23 [id number] Odin Alex MD [facility] Internal Med [address] y , [place] [address] 09/23/2023 14:20:04 09/23/2023 15:01:03 Leukocytosis 489197153 D72.162 [id number] Odin Alex MD [facility] Internal Med [facility] [address] [address] 10/16/2023 14:26:42 10/16/2023 14:57:58 Cellulitis of toe of right foot 7005119343 7690879 L03.312 [id number] Odin Alex MD [facility] Internal Med [facility] [address] [address] 12/30/2023 14:41:53 12/30/2023 15:30:52 Benign essential hypertension 4283658 I10 Atrial fibrillation 4943 6004 I48.91 Hypercholesterolemia 136 09029 E78.00 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 53624485 M48.898 [id number] Odin Alex MD [facility] Internal Med [facility] [address], [address] [place] [address] 01/19/2024 10:14:13 01/19/2024 10:52:34 Headache 68005044 G44.833 [id number] Odin Alex MD [facility] Internal Med [address] [place] [address] 04/27/2024 14:44:48 04/27/2024 15:35:58 Benign essential hypertension 7436617 I10 Atrial fibrillation 4943 6004 I48.91 Anxiety 34576423 F41.9 Chronic ob structive pulmonary disease 66242917 J44.9 Gastroesop hageal reflux disease 367878315 K21.9 Hypercholesterolemia 136 23629 E78.00 Obese class II 426177515 1 38398 E66.9 Disorder of prostate 302 38630 N42.9 [id number] Odin Alex MD [facility] Internal Med [address] [place] [address] 09/09/2024 12:06:53 09/09/2024 14:13:29 Adult health examination 825418733 Z00.00 Screening for disorder 495552566 Z13.9 Administra tion of influenza vaccine 94341852 Z23 Benign ess ential hypertension 4891208 I10 Atrial fibrillation 4943 6004 I48.91 Chronic ob structive pulmonary disease 63054908 J44.9 Hypercholesterolemia 136 92270 E78.00 Obese class II 439401448 1 06144 E66.9 Hyperglycemia 67303116 R 73.9 [id number] Odin Alex MD [facility] Primary Care [facility] [address] [facility] [address] [place] [address] 01/11/2025 11:54:22 01/11/2025 12:52:58 Coronary arteriosclerosis 33654065 I25.10 Atrial fibrillation 4943 6004 I48.91 Benign ess ential hypertension 2630614 I10 Chronic ob structive pulmonary disease 58824038 J44.9 Health Concerns Section Related Observation LastModified by Organization Detai ls LastModified Time None Recorded Concern Status LastModified by Organization Details LastModified Time None Recorded Advance Directives Directive N: Info given previously Payers Encounter Date Sequence Insurance Name Policy Number Policy Richards Covered Member ID Richards Member ID Guarantor Name 12/30/2023 1 [employer] (MEDICARE REPLACEMENT PPO) [id number] Mesfin L Russ [id number] Mesfin L Russ 01/19/2024 1 [employer] (MEDICARE REPLACEMENT PPO) [id number] Mesfin L Russ [id number] Mesfin L Russ 04/27/2024 1 [employer] (MEDICARE REPLACEMENT PPO) [id number] 1 Mesfin L Russ [id number] Mesfin L Russ 09/09/2024 1 [employer] (MEDICARE REPLACEMENT PPO) [id number] Mesfin L Russ [id number] Mesfin L Russ 01/11/2025 1 [employer] (MEDICARE REPLACEMENT PPO) [id number] 1 Mesfin L Russ [id number] Mesfin L Russ Notes Date Note Type Note Provider Name and Address Organization Details Recorded Time text/html Patient Name: Mesfin RussDate Of Service: Friday ( 12.30.2023 ): 1945 [...] Systemic Symptoms:none Medication Reconciliation: from medication list. [id number]: CT scan of chest abdomen pelvis demonstrated [...] Succinate Er. Rate control: controlled ventricular response [id number] Criteria: congestive heart failure, Age > 75 [...] MG One Tablet At [employer] Vaccination and Pvitwqtgrdpq1899-95 Kbyjwuxpo1120-23 Covid Bxwafv3230-68 Prevnar 13 Bo3262-48 Pneumovax Surgical Dxzerlf3231-77 Distal Phalanx Amputation Rt. 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 12/30/2023 15:25:56 4 text/html Patient Name: Mesfin Donovante Of Service: Friday ( 01.19.2024 ): 1945 [...] MG One Tablet At [employer] Vaccination and Coozgfgnxele9238-88 Meneupiuz1246-82 Covid Hbprnn9273-12 Prevnar 13 Dg5979-13 Pneumovax Surgical Zxrgoxa0999-94 Distal Phalanx Amputation Rt. 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 Mwbhhpjsqxw46-38-5058: Echocardiogram demonstrated an ejection fraction of approximately [...] Succinate Er. Rate control: controlled ventricular response [id number] Criteria: hypertension, Age > 75 and and [...] offered to be evaluated and instructed by senior fund accountant on weight loss diet. Active Medication ListMethotrexate [...] MG One Tablet At [employer] Vaccination and Ldhndhnqvzlv7413-58 Keuiobgkl9153-70 Covid Xxfnmk2343-96 Prevnar 13 Py3400-48 Pneumovax Surgical Lxiwyxt4578-76 Distal Phalanx Amputation Rt. Second Azi3448-49 Left Dlrsunuc0960-97 Right Agerdpoj2685-05 Right Inguinal Ksydaa8651-83 Pilonidal Cyst times 2 Preventative Ldqghfb5803/05/2024 CT ASLDZV7601/20/2024 ALBUMIN 3.8 G/DL01/20/2024 HAIC 6.9 % H003/31/2023 PSA 2.06 NG/ML N005/08/2015 COLONOSCOPY (10 YEARS) 05/08/2025 Social HistorySmoke one pack daily for approximately 20 years and quit in 2000Drinks sociallyRetired computer systems integrator Family HistoryMother 69 from ITP and complications following the splenectomyFather 83 from Cancer of the LungTwo brothers both frin DM, ASHD, and Atrial Fibrillation and renal complicationsThree sisters all living each has DM and HTN Odin Alex MD [address] [facility], [facility] [address], [place], [address], [place] [facility] [employer] 04/27/2024 15:32:14 4 text/html Patient Name: Mesfin Holland Of Service: August ( 09.09.2024 ): 1945 [...] Systemic Symptoms:none Medication Reconciliation: from medication list. Brnjzxfyjfc53-88-4373: Echocardiogram demonstrated an ejection fraction of approximately [...] Succinate Er. Rate control: controlled ventricular response [id number] Criteria: Age > 75 for embolic phenomenon. [...] offered to be evaluated and instructed by senior fund accountant on weight loss diet. Active Medication ListMethotrexate [...] 2015-01 PREVNAR 13 GC PREVNAR 20 Needed(X) 2020- [employer] Surgical Pmhphav3288-87 Distal Phalanx Amputation Rt. 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 This represents approximately a .8% change in weight. Weight change attributable to lifestyle changes. Vital Signs:Blood Pressure: Sitting Rt. Arm 138/84Pulse: Sitting 54 /min and RegularRespiratory Rate: 16Height 70 in or 1.8 mWeight 252 lb or 114.3 kgBMI 36.2Temperature: 97 F or 36.1 CPulse Oximetry: 84 % at rest on no oxygen Chief Complaint: Addressed in HPI Problems or conditions discussed in the HPI were the only ones reviewed during the encounter.Only social and family history addressed in the HPI were reviewed during this encounter. Attendant(s): NoneConstitutional and Systemic Symptoms:none Medication Reconciliation: from medication list. [id number]: Echocardiogram demonstrated an ejection fraction of approximately [...] mm left lower lobe pulmonary nodule 06-01-2024: Renal ultrasound demonstrates normal-appearing kidneys with no evidence of any hydronephrosis. 11-18-2024: Cardiac catheterization left main was normal and free of any stenosis. Left anterior descending was a large vessel with 90% lesion in the midportion. There is a complex lesion at the trifurcation with the diagonal and septal branches. 50% stenosis in the right coronary artery History of Present Illness #1. Coronary Artery Disease: There has been no change in frequency - duration - intensity in frequency, duration or intensity of chest pain. Other Complaints: none The frequency of anginal attacks is none at all. Additional Symptoms: none Therapy reviewed regarding cardiovascular management includes Eliquis, Metoprolol Succinate Er, Pravachol and Valsartan #2. Essential Hypertension: Stage: Stage I Interval Neurological Complaints no headaches, dizziness, weakness, visual changes, ataxia, aphasia and apraxia. No shortness of breath, orthopnea or cardiovascular symptoms. No other symptoms related to end organ damage. Pressure has been under excellent control. Currently normal. No other end organ symptoms or findings. Therapy reviewed regarding management of hypertension and includes salt restriction. #3. Type II Hypercholesterolaemia: Currently not taking medication. No interval complaints of any muscle pain or arthralgia. No significant liver changes with medications. Last lipid panel: no testing since starting on medication. Therapy reviewed regarding treatment of cholesterol management and include diet and Pravachol. #4. COPD: Hx of Emphysema currently stable. There has been no interval change in exercise tolerance an shortness of breath. No change in sputum production, color or consistency. No fever, chills, weight loss or other constitutional symptoms. Gold Scale: Mild. MRC Scale: only strenuous activity. Smoking: not currently smoking Current medications: Albuterol Sulfate Hfa, Singulair and Spiriva Using nebulizer Treatments: No. [...] offered to be evaluated and instructed by senior fund accountant on weight loss diet. Active Medication ListMethotrexate [...] 40 MG (TABLET - ORAL) At Bedtime OneFluoxetine 40 MG CAPSULE One DailyHydroxychloroquine Sulfate 200 MG TABLET 2 Tablets DailyLevothyroxine .1 MG TABLET One DailyMeloxicam 7.5 MG TABLET One DailyTizanidine 4 MG CAPSULE One Q4h PrnAlbuterol Sulfate Hfa 90 UG AEROSOL, METERED O7tDjrdzfvpf 25 MG-320 MG (TABLET - ORAL) DailyMetoprolol Succinate Er 100 MG One Tablet At DinerPlavix 75 MG TABLET, FILM COATED Once Daily Vaccination and Immunization( ) 2024-08 INFLUENZA( ) 2011-08 PNEUMOVAX(X) 2015-01 PREVNAR 13 GC PREVNAR 20 Needed(X) 2021-08 COVID [facility] Fpnohux1954-10 LAD Sgdel1937-91 Distal Phalanx Amputation Rt. 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
--- OUTSIDE RECORDS SUMMARY | 2025-02-06 19:33 | XMS_ITS | Patient Health Record ---
Author Organization [facility] Address [address] [place] [address] Care Team Providers Care Marketing Programs Manager Name Role Phone Odin Alex MD Primary Care Provider Dr. Jens Crockett Unavailable [phone] Hugo Dempsey Unavailable Unavailable [facility], Provider Unavailable Unavailab le Allergies No Known Allergies Reason For Referral No Information Medications Medication SIG (Take, Route, Frequency, Duration) Notes Start Date End Date Status MONTELUKAST 10 mg 1 tab(s) orally once a day Active ACETAMINOPHEN 500 mg 2 tab(s) orally every 6 hours Active Benadryl Allergy 25 MG 1 cap(s) orally every 6 hours Active BENADRYL 25 mg 1 cap(s) orally every 6 hours Active Melatonin 10 MG 1 TAB(S) ORALLY ONCE A DAY (AT BEDTIME) *Please review and pick correct strength-formulatio n from [employer] options. If intended option is not shown, discontinue and re-order from Quick Search* Active Centrum THERAPEUTIC MULTIPLE VITAMINS WITH MINERALS 1 TAB(S) ORALLY ONCE A DAY *Please review and pick correct strength-formulatio n from Swarm[employer]an options. If intended option is not shown, discontinue and re-order from Quick Search* Active Valsartan 320 MG 1 tab(s) orally once a day Active ALPRAZolam 0.25 MG 1 tab(s) orally every 8 hours Active Montelukast Sodium 10 MG 1 tab(s) orally once a day Active Acetaminophen 500 MG 2 tab(s) orally every 6 hours Active Flonase Allergy Relief 50 MCG/ACT 1 spray(s) in each nostril once a day Active Pantoprazole Sodium 40 MG 1 tab(s) orally once a day Active Pravastatin Sodium 40 MG 1 tab(s) orally once a day Active Eliquis 5 MG as directed orally 2 times a day Active Metoprolol Succinate ER 100 MG 1 tab(s) orally once a day Active MELATONIN 10 mg 1 tab(s) orally once a day (at bedtime) Active CENTRUM Therapeutic Multiple Vitamins with Minerals [...] Active ALPRAZOLAM 0.25 mg 1 tab(s) orally every 8 hours Active Problems Problem Type SNOMED Code ICD Code Onset Dates Problem Status W/U Status Risk Notes Problem Polyneuropathy due to type 2 diabetes mellitus (583442817) Type 2 diabetes mellitus with diabetic polyneuropathy (E11.42) Active confirmed Problem Chronic migraine without aura, non-refractory (disorder) (778416940707614) Migraine without aura, not intractable, without status migrainosus (G43.009) Active confirmed Problem Migraine with aura (8960561) Migraine with aura, not intractable, without status migrainosus (G43.109) Active confirmed Problem Chronic migraine without aura, non-intractable (249930688849363) Chronic migraine without aura, not intractable, without status migrainosus (G43.709) Active confirmed Problem Carpal tunnel syndrome (90981321) Carpal tunnel syndrome, bilateral upper limbs (G56.03) Active confirmed Encounters Encounter Location Date Provider Diagnosis [facility] [address] [place] [address] 05/15/2024 Provider [facility] Plan Of Treatment No Information Insurance Providers Payer Name Payer Address Payer Phone Subscriber Number Group Number Insured Name Patient Relationship to Insured Coverage Start Date Coverage End Date [employer] [address] [place] [address] [id number] Billy Russ Self - patient is the insured 4 Medical (General) History Medical History History ICD Code HLD HTN PAFib COPD CASTRO Lumbar DDD OA DM2 Surgical History Surgery Date(Month/Year) S/p lumbar FLAVIO S/p cataracts S/p pilonidal cyst removal S/p cardiac ablation
[2025-02-06 19:37] VITALS: BP 120/73; PULSE 71; RESP 15; TEMP 36.8; O2SAT 96
--- OUTSIDE RECORDS SUMMARY | 2025-02-06 20:23 | XMS_ITS | Clinical Summary ---
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 As long as they remain on this medication, an ECG will be performed every 6 months for monitoring. Assessment & Plan (12/24/2017 4:09 PM DROP FORGE OPERATOR): 12-lead ECG today does not demonstrate any [...] Eliquis 5 mg twice daily.He has a [id number]-EVDp score of 2, therefore it is recommended that he remain anticoagulated for thromboprophylaxis. Assessment & Plan (12/24/2017 4:10 PM DROP FORGE OPERATOR): The patient has a IUF5AS7-SMAe score of 2 (annualized risk of stroke 2.2 %). I have therefore recommended that he remain anticoagulated for thromboprophylaxis. The patient will follow-up with me in 3-4 months for an office visit and twelve- lead ECG. Assessment & Plan (09/29/2017 2:05 PM CDT): The patient has a KXZ9JR7-FUHd score of 2 (annualized risk of stroke 2.2 %). I have therefore recommended that he remain anticoagulated for thromboprophylaxis. He will follow-up with me 1 month after cardioversion. Assessment & Plan (07/27/2017 2:59 PM CDT): The patient has a TMK6KD1-YRSb score of 2 (annualized risk of stroke 2%). I have therefore recommended that he remain anticoagulated for thromboprophylaxis. The patient will follow up with me in 6 months, unless he has recurrence. Assessment & Plan (06/28/2017 2:51 PM CDT): The patient has a XVW1DE0-DIOf score of 2 (annualized risk of stroke [...] EKG. Assessment & Plan (12/24/2017 4:09 PM DROP FORGE OPERATOR): The patient is status post ablation for [...] Department Care Team Description 11/25/2024 10:00 AM DROP FORGE OPERATOR - 11/25/2024 12:00 PM DROP FORGE OPERATOR Surgery [facility] [address] [place] [id number] Gene De La Garza MD PCI SONIA MAJOR CORONARY C9600 - [id number] 11/25/2024 7:55 AM DROP FORGE OPERATOR - 11/26/2024 1:45 PM DROP FORGE OPERATOR Hospital Encounter [address] [address] Gene De La Garza MD CAD (coronary artery disease) Discharge Disposition: Discharge to home or self care 11/18/2024 Orders Only [facility] [address] [place] [id number] Gene De La Garza MD CAD (coronary [...] on file Legal Sex Male 10:59 AM DROP FORGE OPERATOR Gender Identity Male 12/28/2021 10:54 PM DROP FORGE OPERATOR Sexual Orientation Straight 12/28/2021 10 :54 PM DROP FORGE OPERATOR Obstetrics History Last Filed Vital Signs Vital Sign Reading Time Taken Comments Blood Pressure 149/82 11/26/2024 12:09 PM DROP FORGE OPERATOR Pulse 75 11/26/2024 12:09 PM DROP FORGE OPERATOR Temperature 36.7 C (98 F) 11/26/2024 12:09 PM DROP FORGE OPERATOR Respiratory Rate 20 11/26/2024 12:09 PM DROP FORGE OPERATOR Oxygen Saturation 97% 11/26/2024 12:09 PM DROP FORGE OPERATOR Inhaled Oxygen Concentration - - Weight 115.7 kg (255 lb) 11/25/2024 12:14 PM DROP FORGE OPERATOR Height 182.9 cm (6') 11/25/2024 12:14 PM DROP FORGE OPERATOR Body Mass Index 34.58 11/25/2024 12:14 PM DROP FORGE OPERATOR Plan of Treatment Health Maintenance Due Date [...] home safety. Medical Devices Implanted Type Area Paleologist Device Identifier Shelf Expiration Date Model / Serial / Lot [employer] Stent Coronary Drug Eluting Rapid Exchange Synergy Xd [id number] [place] Chromium [id number] - [id number] Implanted:Qty: 1 on 11/25/2024 by Gene De La Garza MD at [facility] [employer] 05/05/2026 [id number] / / [id number] Procedures Procedure Name Priority Date/Time Associated Diagnosis Comments EGFR Routine 11/26/2024 4:08 AM DROP FORGE OPERATOR DIFFERENTIAL AUTO Routine 11/26/2024 4:0 8 AM DROP FORGE OPERATOR CBC WITH AUTO DIFFERENTIAL Routine 11/26/2024 4:08 AM DROP FORGE OPERATOR BASIC METABOLIC PANEL Routine 11/26/2024 4:08 AM DROP FORGE OPERATOR CORONARY OCT, 1ST VESSEL Routine 11/25/2024 11:36 AM DROP FORGE OPERATOR CAD (coronary artery disease) VASCULAR ACCESS US GUIDANCE Routine 11/25/2024 11:36 AM DROP FORGE OPERATOR CAD (coronary artery disease) SONIA MAJOR CORONARY Routine 11/25/2024 11 :36 AM DROP FORGE OPERATOR CAD (coronary artery disease) POCT ACTIVATED CLOTTING TIME, HIGH RANGE Routine 11/25/2024 11:19 AM DROP FORGE OPERATOR MODERATE SEDATION FIRST 15MIN 5+ YEAR [address]1281 11/25/2024 10:13 AM DROP FORGE OPERATOR CAD (coronary artery disease) EGFR Routine 11/25/2024 9:01 AM DROP FORGE OPERATOR DIFFERENTIAL AUTO Routine 11/25/2024 9:0 1 AM DROP FORGE OPERATOR COMPREHENSIVE METABOLIC PANEL Routine 11/25/2024 9:01 AM DROP FORGE OPERATOR CBC WITH AUTO DIFFERENTIAL Routine 11/25/2024 9:01 AM DROP FORGE OPERATOR CTA ABDOMEN PELVIS W WO CONTRAST Schedule Routine, Read Routine (OP Routine) 10/06/2023 1:35 PM DROP FORGE OPERATOR Dissection of aorta, unspecified portion of aorta (HCC) from Last 3 Months or Most Recently Relevant to Health Maintenance Results * (ABNORMAL) eGFR (11/26/2024 4:08 AM DROP FORGE OPERATOR) eGFR 51(L) >=60 mL/min/1. 73 m2 Comment: [...] last reviewed 2021. Blood 11/26/2024 4:08 AM DROP FORGE OPERATOR 11/26/2024 5:06 AM DROP FORGE OPERATOR us Gene De La Garza MD LAB BLOOD ORDERABLES Final Resu lt [facility] [address] Department [place] [address] * Differential, auto (11/26/2024 4:08 AM DROP FORGE OPERATOR) Neutrophil abs 6.0 1.5 - 6.5 K/cumm Imm gran abs 0.0 0.0 - 0.1 K/cumm [facility] Lymphocyte abs 1.9 0.8 - 3.3 K/cumm [facility] Monocyte abs 0.6 0.2 - 0.8 K/cumm [facility] Eosinophil abs 0.2 0.0 - 0.5 K/cumm [facility] Basophil abs 0.1 0.0 - 0.1 K/cumm [facility] Neutrophil pct 68.4 % [facility] Comment: Interpretive Data Percent cell count reference ranges are not reported, since discordance with absolute values may lead to misinterpretation of CBC data. Current Interpretive Data was last revised on 2018. Imm gran pct 0.5 % [facility] Comment: Interpretive Data Percent cell count reference ranges are not reported, since discordance with absolute values may lead to misinterpretation of CBC data. Current Interpretive Data was last revised on 2018. Lymphocyte pct 21.4 % [facility] Comment: Interpretive Data Percent cell count reference ranges are not reported, since discordance with absolute values may lead to misinterpretation of CBC data. Current Interpretive Data was last revised on 2018. Monocyte pct 6.9 % [facility] Comment: Interpretive Data Percent cell count reference ranges are not reported, since discordance with absolute values may lead to misinterpretation of CBC data. Current Interpretive Data was last revised on 2018. Eosinophil pct 1.8 % [facility] Comment: Interpretive Data Percent cell count reference ranges are not reported, since discordance with absolute values may lead to misinterpretation of CBC data. Current Interpretive Data was last revised on 2018. Basophil pct 1.0 % [facility] Comment: Interpretive Data Percent cell count reference ranges are not reported, since discordance with absolute values may lead to misinterpretation of CBC data. Current Interpretive Data was last revised on 2018. Blood 11/26/2024 4:08 AM DROP FORGE OPERATOR 11/26/2024 5:03 AM DROP FORGE OPERATOR us Gene De La Garza MD LAB BLOOD ORDERABLES Final Resu lt [facility] [address] Department [place] [address] * (ABNORMAL) CBC with auto differential (11/26/2024 4:08 AM DROP FORGE OPERATOR) WBC 8.8 3.8 - 9.9 K/cumm Hgb [...] K/cumm [facility] Blood 11/26/2024 4:08 AM DROP FORGE OPERATOR 11/26/2024 5:03 AM DROP FORGE OPERATOR us Gene De La Garza MD LAB BLOOD ORDERABLES Final Resu lt [facility] [address] Department [place] [address] * (ABNORMAL) Basic metabolic panel (11/26/2024 4:08 AM DROP FORGE OPERATOR) Sodium 137 135 - 145 mmol/L Potassium, pl 4.5 3.3 - 4.9 mmol/L [facility] Chloride 101 97 - 110 mmol/L [facility] CO2 24 22 - 32 mmol/L [facility] Anion gap 12 2 - 15 mmol/L [facility] BUN 37(H) 6 - 25 mg/dL [facility] Creatinine 1.42(H) 0.80 - 1.30 mg/dL [facility] Glucose 110 70 - 199 mg/dL [facility] Comment: Interpretive Data Fasting glucose >/= 126 [...] mg/dL [facility] Blood 11/26/2024 4:08 AM DROP FORGE OPERATOR 11/26/2024 5:06 AM DROP FORGE OPERATOR Gene De La Garza MD LAB BLOOD ORDERABLES Final Resu lt [facility] [address] Department [place] [address] * SONIA MAJOR CORONARY, VASCULAR ACCESS US GUIDANCE, CORONARY OCT, 1ST VESSEL (11/25/2024 11:36 AM DROP FORGE OPERATOR) Anatomical Region Laterality Modality X-Ray Angiograph y Narrative 11/25/2024 11:54 AM DROP FORGE OPERATOR Table formatting from the original result was not included. PCI SONIA MAJOR CORONARY C9600 - 96598, MODERATE SEDATION FIRST 15MIN 5+ YEAR , ULTRASOUND GUIDANCE FOR VASCULAR ACCESS S&I 75801, IVUS/OCT CORS OR GRAFTS, FIRST VESSEL (+) [id number] Brief Op Note Attending [employer] Piping Designer: Gene De La Garza MD Primary: Gene De La Garza MD CV Documenter: Ilene Chaves, OLYA CV Scrub: Carolyn Cole RT; Layo Cerrato CV Junior Sales Representative: Halley Pro; Sweetie Lee RN Date of Procedure: 11/25/2024 Specimens: No specimen collected in procedure Preoperative Diagnosis: Pre-op Diagnosis * CAD (coronary artery disease) [I25.10] Postoperative Diagnosis: Post-op Diagnosis * CAD (coronary artery disease) [I25.10] Name of Procedure: Procedure(s): PCI SONIA MAJOR CORONARY C9600 - 40746 MODERATE SEDATION FIRST 15MIN 5+ YEAR 38696 ULTRASOUND GUIDANCE FOR VASCULAR ACCESS S&I 41397 IVUS/OCT CORS OR GRAFTS, FIRST VESSEL (+) [id number] Implants: Implant Name Type Inv. Item Serial No. Paleologist Lot No. LRB No. Used Action Cardback Stent Coronary Drug Eluting Rapid Exchange Synergy Xd [id number] [place] [employer]ium [id number] - [id number] Cardback Stent Coronary Drug Eluting Rapid Exchange Synergy Xd [id number] [place] Chromium [id number] [employer] [id number] N/A 1 Implanted Cardiac catheterization procedure report summary Clinical history: 79-year-old gentleman with angina event stress test which was demonstrating anterior ischemia underwent cardiac catheterization by Dr. Chay Valentin, it demonstrated severe LAD lesion in proximal segment involving the bifurcation of diagonal and large septal associate professor of kinesiology. Patient has been scheduled for PCI with [...] Low Risk (<1% annual risk of or AR) [] Intermediate Risk (1-3% annual risk of or AR [x] High Risk (>3% annual risk of or AR) 5. Stress-induced perfusion abnormalities encumbering >=10% myocardium [...] 2 mg Versed and 75 mcg fentanyl Amusement Machine Mechanic: Gene De La Garza MD Procedure summary: [...] any plaque shift into diagonal or septal associate professor of kinesiology. Patient tolerated the procedure well symptomatically. No postprocedure complication, estimated blood loss 5 cc. Catheter was removed and TR band was applied achieving hemostasis. Impression: Successful PCI of 80% proximal LAD stenosis involving diagonal and large septal associate professor of kinesiology trifurcation with 3.5X16 synergy SONIA post dilated [...] Clotting Time, High Range (11/25/2024 11:19 AM DROP FORGE OPERATOR) ACT 239(H) 87 - 138 sec Blood 11/25/2024 11:1 9 AM DROP FORGE OPERATOR 11/25/2024 11:19 AM DROP FORGE OPERATOR Gene De La Garza MD LAB BLOOD ORDERABLES Final Resu lt [facility] [address] [place] [address] * (ABNORMAL) eGFR (11/25/2024 9:01 AM DROP FORGE OPERATOR) eGFR 56(L) >=60 mL/min/1. 73 m2 Comment: [...] last reviewed 2021. Blood 11/25/2024 9:01 AM DROP FORGE OPERATOR 11/25/2024 9:05 AM DROP FORGE OPERATOR us Gene De La Garza MD LAB BLOOD ORDERABLES Final Resu lt [facility] [address] [place] [address] * Differential, auto (11/25/2024 9:01 AM DROP FORGE OPERATOR) Neutrophil abs 6.4 1.5 - 6.5 K/cumm Imm gran abs 0.1 0.0 - 0.1 K/cumm [facility] Lymphocyte abs 1.8 0.8 - 3.3 K/cumm [facility] Monocyte abs 0.6 0.2 - 0.8 K/cumm [facility] Eosinophil abs 0.1 0.0 - 0.5 K/cumm [facility] Basophil abs 0.1 0.0 - 0.1 K/cumm [facility] Neutrophil pct 70.9 % [facility] Comment: Interpretive Data Percent cell count reference ranges are not reported, since discordance with absolute values may lead to misinterpretation of CBC data. Current Interpretive Data was last revised on 2018. Imm gran pct 0.7 % [facility] Comment: Interpretive Data Percent cell count reference ranges are not reported, since discordance with absolute values may lead to misinterpretation of CBC data. Current Interpretive Data was last revised on 2018. Lymphocyte pct 19.3 % [facility] Comment: Interpretive Data Percent cell count reference ranges are not reported, since discordance with absolute values may lead to misinterpretation of CBC data. Current Interpretive Data was last revised on 2018. Monocyte pct 6.7 % [facility] Comment: Interpretive Data Percent cell count reference ranges are not reported, since discordance with absolute values may lead to misinterpretation of CBC data. Current Interpretive Data was last revised on 2018. Eosinophil pct 1.5 % [facility] Comment: Interpretive Data Percent cell count [...] revised on 2018. Blood 11/25/2024 9:01 AM DROP FORGE OPERATOR 11/25/2024 9:01 AM DROP FORGE OPERATOR Gene De La Garza MD LAB BLOOD ORDERABLES Final Resu lt Performing Organization Address [facility]/ZIP Co de Phone Number [facility] [address] [place] [address] * (ABNORMAL) CBC with auto differential (11/25/2024 9:01 AM DROP FORGE OPERATOR) WBC 9.1 3.8 - 9.9 K/cumm Hgb 14.1 13.0 - 17.5 g/dL [facility] Hct 43.3 38.9 - 50.3 % [facility] Plt 190 150 - 400 K/cumm [facility] MPV 9.0(L) 9.1 - 12.3 fL [facility] RBC 4.55 4.30 - 5.80 M/cumm [facility] MCV 95.2 81.3 - 96.4 fL [facility] MCH 31.0 27.1 - 33.3 pg [facility] MCHC 32.6 32.3 - 35.7 g/dL [facility] CH RDW CV 14.9 11.1 - 14.9 % [facility] CH RDW SD 52.1(H) 35.7 - 48.1 fL [facility] NRBC abs 0.00 0.00 - 0.01 K/cumm [facility] Blood 11/25/2024 9:01 AM DROP FORGE OPERATOR 11/25/2024 9:01 AM DROP FORGE OPERATOR Gene De La Garza MD LAB BLOOD ORDERABLES Final Resu lt Performing Organization Address [facility] Co de Phone Number [facility] [address] [place] [address] * (ABNORMAL) Comprehensive metabolic panel (11/25/2024 9:01 AM DROP FORGE OPERATOR) Sodium 141 135 - 145 mmol/L Potassium, [...] Units/L [facility] Blood 11/25/2024 9:01 AM DROP FORGE OPERATOR 11/25/2024 9:01 AM DROP FORGE OPERATOR us Gene De La Garza MD LAB BLOOD ORDERABLES Final Resu lt [facility] [address] [address] [place] [address] * CTA Abdomen Pelvis (10/06/2023 1:35 PM DROP FORGE OPERATOR) Anatomical Region Laterality Modality Body N/A Computed Tomogra phy 10/06/2023 2:15 PM DROP FORGE OPERATOR Impressions 10/07/2023 1:05 PM DROP FORGE OPERATOR IMPRESSION: 1. Stable small infrarenal penetrating atherosclerotic ulcers. No abdominal aortic aneurysm or evidence of instability. 2. Morphologic features of hepatic fibrosis. Dictated by: Melonie Rodriguez M.D. The radiology attending physician has personally reviewed this study, and had reviewed and/or edited this written report and agrees with it. Electronically signed by: Cuauhtemoc Otero M.D. Narrative 10/07/2023 1:05 PM DROP FORGE OPERATOR EXAMINATION: CT ANGIOGRAPHY OF THE ABDOMEN AND [...] Most Recently Relevant to Health Maintenance Insurance [facility] MEDICARE AET MEDICARE [facility] MEDICARE Advance Directives For more information, please contact: [phone] * Full Code (Latest Code Status on File) Date Activated Date Inactivated Comments 11/25/2024 11:59 AM 11/26/2024 5:49 PM Care Teams Library Consultant Relationship Specialty Start Date End Date Odin Alex MD PCP - General 02/28/17 Gene De La Garza MD [address] [place] [address] Consulting Physician Cardiology 11/26/24
--- OUTSIDE RECORDS SUMMARY | 2025-02-06 20:23 | XMS_ITS | CONTINUITY OF CARE DOCUMENT ---
Author Name darline gregorio Address Unknown Organization [facility] Address [address] [place] [address] Phone [phone] Care Team Providers Care Radiopharmacist Name Role Phone Homero LEACH, Chay Unavailable [phone] ESTRELLITA LEACH, CATHRYN Unavailable ESTRELLITA LEACH, CATHRYN Unavailable [phone] PROBLEMS Condition Status Date Provider Notes Abnormal [...] In-person encounter Office Visit Chay Valentin MD [facility] CAD 80% pLAD s/p SONIA, 10/2024 - In-person encounter Office Visit Gene De La Garza MD [facility] CAD 80% pLAD s/p SONIA, 10/2024 - In-person encounter Office Visit Chay Valentin MD [facility] HTN essential--echo ef normal 08/2024OSA--severe on BIPAP with I9Ardoh painShortness of breath - In-person encounter Office Visit Chay Valentin MD [facility] Aortic aneurysm, abdominal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, partial, right foot - In-person encounter Office Visit Chay Valentin MD [facility] CASTRO--severe on BIPAP with O2 - In-person encounter Office Visit Chay Valentin MD [facility] - In-person encounter Office Visit Chay Valentin MD [facility] CASTRO--severe on BIPAP with O2CAD 80% pLAD s/p SONIA, 10/2024 - In-person encounter Office Visit Chay Valentin MD [facility] - In-person encounter Office Visit Chay Valentin MD [facility] HTN essential--echo ef normal 08/2024Leg edema, bilateralAortic aneurysm, abdominalEdema-BLE - In-person encounter Office Visit Chay Valentin MD [facility] HTN essential--echo ef normal 08/2024OSA--severe on BIPAP with O2 - In-person encounter Office Visit Chay Valentin MD [facility] Family History of Hypertension:Obesity - In-person encounter Office Visit Chay Valentin MD [facility] - In-person encounter Office Visit Chay Valentin MD [facility] Diabetes mellitus VITAL SIGNS Date Observation [...] blood pressure, systolic 136 mm[Hg] Analisa la [facility] pulse rate 73 /min Mary Ellen [facility] oxygen saturation, oximetry 99 % Mary Ellen Ruple weight E&M 262 [lb_av] Mary Ellen Ruple height E&M 72 [in_i] Mary Ellen [facility] Body Mass Index (Ratio) 34.93 kg/m2 [...] kLogic blood pressure, cuff size regular [facility] blood pressure, diastolic 98 mm[Hg] [facility] blood pressure, systolic 165 mm[Hg] Live [facility] pulse rate 66 /min [facility] respiratory rate E&M 16 /min Humaira Collier deidra oxygen saturation, oximetry 98 % [facility] weight E&M 260 [lb_av] [facility] height E&M 72 [in_i] [facility] Body Mass Index (Ratio) 35.67 kg/m2 [...] nesha Van blood pressure, systolic 160 mm[Hg] [facility] oxygen saturation, oximetry 97 % [facility] respiratory rate E&M 16 /min [facility] pulse rate 74 /min Jazmin Van weight E&M 257.6 [lb_av] Jazmin Van height E&M 72 [in_i] Jazmin Van Body Mass Index (Ratio) 36.61 kg/m2 Tim Valentin MD blood pressure, diastolic 92 mm[Hg] Ca therine [place] blood pressure, systolic 160 mm[Hg] Cat herine [facility] oxygen saturation, oximetry 96 % Kiki [facility] respiratory rate E&M 16 /min Catheri ne [place] pulse rate 87 /min Kiki [place] weight E&M 270 [lb_av] K[facility] blood pressure, cuff size regular Ca therine [place] height E&M 72 [in_i] [facility] Body [...] MD blood pressure, diastolic 113 mm[Hg] To [facility] blood pressure, systolic 173 mm[Hg] Ton julius Patten blood pressure, resting Yes [facility] oxygen saturation, oximetry 98 % [facility] respiratory rate E&M 16 /min [facility] pulse rate 58 /min [facility] temperature E&M 97.3 [degF] [facility] temperature site temporal [facility] weight E&M 261 [lb_av] [facility] height E&M 72 [in_i] [facility] ALLERGIES No Known Drug Allergies RESULTS Date Observation Value Provider Reference Range Interpretation Location 8 LDL cholesterol, serum 56 mg/dL Robby Fish HISTORY OF MEDICATION USE Medication Status Instructions Dates Provider Indications [facility] valsartan-hydrochloro thiazide 320-25 mg tablet active Take [...] Perry vanessa smoking, year quit 1999 Dilan [facility] smoking history, tot al pack/year [...] smoking history, tot al pack/year 365 Kiki [place] smoking history, tot al pack/day 1 Kiki [facility] cigarette use yes Kiki [place] smoking status Former smoker Kiki Ot is [...] yes Tonsha Patten smoking status [facility] FUNCTIONAL STATUS Date Observation Value Provider HRA, [...] Policy type / Coverage type [place] red republican ID AETNA MEDICARE GOLD ADVANTAGE O Medicare AETNA MEDICARE [facility] Medicare [id number] ADVANCE DIRECTIVES Name Date DISCUSSED - NO DECISION MADE TREATMENT PLAN Date Name Performer [id number],S, Dilan Ahmedza i [id number],S, Dilan Ahmedza i [id number],S, Dilan Ahmedza i [id number],S, Dilan Ahmedza i [id number],S, Dilan Ahmedza i [id number],S, Dilan Ahmedza i [id number],S, Dilan Ahmedza i [id number],S, Dilan Ahmedza i [id number],S, Dilan Ahmedza i [id number],S, Dilan Ahmedza i [id number],S, Dilan Ahmedza i [id number],S, Dilan Ahmedza i [id number],S, Dilan Ahmedza i [id number],S, Dilan Ahmedza i [id number],S, Dilan Ahmedza i [id number],S, Dilan Ahmedza i [id number],S, Dilan Ahmedza i [id number],S, Dilan Ahmedza i [id number],S, Dilan Ahmedza i [id number],S, Dilan Ahmedza i [id number],S, Dilan Ahmedza i [id number],S, Dilan medza i [id number],S, Dilan medza i [id number],S, Dilan medza i [id number],B, Dilan medza i [id number],S, Dilan medza i [id number],S, Dilan medza i [id number],S, Dilan medza i [id number],S, Dilan medza i [id number],S, Dilan medza i [id number],S, Dilan medza i [id number],S, Dilan medza i [id number],S, Dilan medza i [id number],S, Dilan medza i [id number],S, Dilan medza i [id number],S, Dilan medza i [id number],S, Dilan Ahmedza i [id number],S, Dilan Ahmedza i Cardiology Chay Valentin MD [...] mouth every day Orders: [facility] (CPT-[id number]) Chay Valentin MD Cardiology:This visi t has been a part of the consistent, comprehensive, and ongoing management of the chronic medical condition(s) listed above for the patient. Orders: [facility] ([id number]) His updated medication list for this problem [...] Telehealth: O rders: L T HRT CATH (40942) B ASIC METABOLIC PANEL W/EGFR (59848) C BC (INCLUDES DIFF/PLT) (6399) L IPID [...] Take 1 tablet by mouth [facility] day [facility]: O rders: L T HRT CATH (34064) B ASIC METABOLIC PANEL W/EGFR (58990) C BC (INCLUDES DIFF/PLT) (6399) L IPID PANEL (7600) P ROTHROMBIN TIME WITH INR (8847) [facility]: His updated medication list for this problem includes: Metoprolol Succinate 25 Mg Tablet Extended Release 24 Hr (Metoprolol succinate) ..... Take 1 tablet by mouth once daily Furosemide 40 Mg Tablet (Furosemide) Valsartan-hydrochlorothiazide 320-25 Mg Tablet (Valsartan-hydrochlorothiazide) ..... Take 1 tablet by mouth once daily Amlodipine 10 Mg Tablet (Amlodipine) ..... Take 1 tablet by mouth every day [facility] Tele[facility]: O rders: L T HRT CATH (81190) B ASIC METABOLIC PANEL W/EGFR (00903) C BC (INCLUDES DIFF/PLT) (6399) L IPID [...] Telehealth: O rders: L T HRT CATH (84804) B ASIC METABOLIC PANEL W/EGFR (93819) C BC (INCLUDES DIFF/PLT) (4099) L IPID PANEL (8750) P ROTHROMBIN TIME WITH INR (8847) His updated medication list for this problem includes: Metoprolol Succinate 25 Mg Tablet Extended Release 24 Hr (Metoprolol succinate) ..... Take 1 tablet by mouth once daily Amlodipine 10 Mg Tablet (Amlodipine) ..... Take 1 tablet by mouth every day Dilanashley [facility] Telehealth [facility] Cardiology:This visi t has been a part of the consistent, comprehensive, and ongoing management of the chronic medical condition(s) listed above for the patient. Orders: M onitor - Telemetry (Mobile Cardiac) ([id number]) His updated medication list for this problem includes: Metoprolol Succinate 100 Mg Tablet Extended Release 24 Hr (Metoprolol succinate) ..... Take 1/2 tablet by mouth once daily Chay Valentin MD Cardiology: O rders: S tress Cardiac PET-CT (69362) m yocardial blood flow (PET) (31706) His updated medication list for this problem includes: Metoprolol Succinate 100 Mg Tablet Extended Release 24 Hr (Metoprolol succinate) ..... Take 1/2 tablet by mouth once daily Amlodipine 10 Mg Tablet (Amlodipine) ..... Take 1 tablet by mouth every day [facility]: O rders: S tress Cardiac PET-CT (10089) m yocardial blood flow (PET) (07749) The following medications were removed from the [...] Take 1 tablet by mouth every day [facility]: H is updated medication list for this problem includes: Metoprolol Succinate 100 Mg Tablet Extended Release 24 Hr (Metoprolol succinate) ..... Take 1/2 tablet by mouth once daily [facility] Cardiology: O rders: S tress Cardiac PET-CT (16188) m yocardial blood flow (PET) (86398) His updated medication list for this problem includes: Metoprolol Succinate 100 Mg Tablet Extended Release 24 Hr (Metoprolol succinate) ..... Take 1/2 tablet by mouth once daily Amlodipine 10 Mg Tablet (Amlodipine) ..... Take 1 tablet by mouth every day [facility] Cardiology: O rders: M onitor - Telemetry (Mobile Cardiac) ([id number]) His updated medication list for this problem includes: Metoprolol Succinate 100 Mg Tablet Extended Release 24 Hr (Metoprolol succinate) ..... Take 1/2 tablet by mouth once daily [facility] Cardiology: B P today: 150/88 P rior [...] Take 1 tablet by mouth every day [facility] Telehealth: H is updated medication list for this problem includes: Metoprolol Succinate 100 Mg Tablet Extended Release 24 Hr (Metoprolol succinate) ..... Take 1 tablet by mouth once daily [facility] Telehealth: H is updated medication list [...] Take 1 tablet by mouth once daily [facility] Telehealth [facility] Telehealth: H is updated medication list for this problem includes: Amlodipine 5 Mg Tablet (Amlodipine) ..... Take 1 tablet by mouth every night Metoprolol Succinate 100 Mg Tablet Extended Release 24 Hr (Metoprolol succinate) ..... Take 1 tablet by mouth once daily [facility] Telehealth: H is updated medication list for this problem includes: Pravastatin 40 Mg Tablet (Pravastatin) ..... 1 tablet by mouth once a day [facility] Telehealth [facility] Cardiology:Will add Amlodipine 5 mg for better HTN control BP today: 165/98 P rior BP: 146/86 (06/16/2023) Labs Reviewed: L DL: 56 (11/17/2020) [facility] Cardiology: H is updated medication list [...] Cardiology Dilan Ahmedzai Cardiology Dilan Mcbridemedzai Cardiology Dilan Mcbridemedzai Cardiology Follow up :Encouraged weight loss. [...] Valentin MD TeleHealth Chay Valentin MD Cardiology Chya Valentin MD Cardiology Chay Valentin MD Cardiology [...]
--- OUTSIDE RECORDS SUMMARY | 2025-02-06 20:23 | XMS_ITS | Referral Summary ---
Author Organization [facility] Address [address] [place] [address] Care Team Providers Care Manager Critical Care Name Role Phone Odin Alex MD Primary Care Provider Leo Wang MD Unavailable Leo Wang MD Unavailable Source Comments [facility],non-owned Affiliates and Associated Physician Practices is amultiple site organization consisting of ambulatory clinics and hospital sitesin [place], [place], [place]. This disclosure is being madepursuant to the Care Everywhere program and may not contain all information available regarding this patient. Last updated 18.[facility] Encounters Date Type Department Care Team Description 01/26/2025 Refill [facility] [address] [place] [address] Leo Wang MD Refill Request 12/24/2024 Refill [facility] [address] [facility] [address] [facility] [address] [place] [address] Leo Wang MD Refill Request 12/15/2024 Telephone [facility] Pulmonology [address] [facility] [address] [place] [address] Leo Wang MD [facility] 12/13/2024 2:30 PM IT INVESTMENT/PORTFOLIO MANAGER - 12/13/2024 11:59 PM IT INVESTMENT/PORTFOLIO MANAGER Hospital Encounter [facility] Imaging Services - Radiology [address] [place], [place] [id number] Leo Wang MD Discharge Disposition: Home or Self Care 12/13/2024 Travel 12/13/2024 3:30 PM IT INVESTMENT/PORTFOLIO MANAGER Office Visit [facility] [address] [facility] [address] [place] [id number] Leo Wang MD Chronic respiratory failure with hypoxia (HCC) (Primary Dx); COPD, 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 (28% of pred from 08/2022 with significant reversible component).; CASTRO treated with BiPAP; Nodule of lower lobe of left lung - 4 mm, indeterminate and unchanged on last OSH chest CT.; History of tobacco abuse; History of COVID-19; Coronary artery disease involving akhi[place] coronary artery of akhiok heart without angina pectoris; Hypertension, unspecified type; [...] fluticasone propionate (Flonase) 50 MCG/ACT nasal spray Julian 2 (two) sprays into each nostril once [...] daily 33 g 1 01/26/2025 Active Breztri Konoz 160-9-4.8 MCG/ACT inhalerIndicatio ns:Chronic obstructive pulmonary disease, [...] Eliquis 5 mg twice daily.He has a [id number] score of 2, therefore it is recommended that he remain anticoagulated for thromboprophylaxis. 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 Overview (11/02/2021): [...] Comments Blood Pressure 126/80 12/13/2024 3:36 PM IT INVESTMENT/PORTFOLIO MANAGER Pulse 82 12/13/2024 3:36 PM IT INVESTMENT/PORTFOLIO MANAGER Temperature 36.3 C (97.4 F) 12/13/2024 3:36 PM IT INVESTMENT/PORTFOLIO MANAGER Respiratory Rate 20 12/13/2024 3:36 PM IT INVESTMENT/PORTFOLIO MANAGER Oxygen Saturation 96% 12/13/2024 3:36 PM IT INVESTMENT/PORTFOLIO MANAGER room air Inhaled Oxygen Concentration - - Weight 119.3 kg (263 lb) 12/13/2024 3:36 PM IT INVESTMENT/PORTFOLIO MANAGER Height 182.9 cm (6') 12/13/2024 3:36 PM IT INVESTMENT/PORTFOLIO MANAGER Body Mass Index 35.67 12/13/2024 3:36 PM IT INVESTMENT/PORTFOLIO MANAGER Plan of Treatment Not on file Procedures Procedure Name Priority Date/Time Associated Diagnosis Comments XR CHEST 2VW Routine 12/13/2024 2:58 PM IT INVESTMENT/PORTFOLIO MANAGER Dyspnea, unspecified type Acute on chronic diastolic [...] * XR Chest 2Vw (12/13/2024 2:58 PM IT INVESTMENT/PORTFOLIO MANAGER) Anatomical Region Laterality Modality Chest Computed Radiogr aphy 12/13/2024 3:01 PM IT INVESTMENT/PORTFOLIO MANAGER Impressions 12/13/2024 3:01 PM IT INVESTMENT/PORTFOLIO MANAGER IMPRESSION: No acute disease. > Interpreting Provider: Jean-Pierre Sepulveda MD on 12/13/2024 3:01 PM Narrative 12/13/2024 3:01 PM IT INVESTMENT/PORTFOLIO MANAGER Chest Two Views History: R06.00: Dyspnea, unspecified [...] ONLY from Last 3 Months Care Teams Manager Critical Care Relationship Specialty Start Date End Date Odin Alex MD [address] [place] [phone] PCP - General Internal Medicine 04/12/19 [place] [id number] [place] [address] [address] [place] [id number] PCP - Attributed-Coventry [place] 01/01/25 [place] [address] [facility] [address] [place] [address] Pulmonary Disease 05/09/22
--- OUTSIDE RECORDS SUMMARY | 2025-02-06 20:23 | XMS_ITS | Patient Health Summary ---
Author Organization [facility] Address [address] [place] [address] Care Team Providers Care Learning Coach Name Role Phone Odin Alex MD Primary Care Provider [phone] Leo Wang MD Unavailable [phone] Leo Wang MD Unavailable [phone] Note from [facility],non-owned Affiliates and Associated Physician Practices is amultiple site organization consisting of ambulatory clinics and hospital sitesin [place], [place], [place] and [place]. This disclosure is being madepursuant to the Care Everywhere program and may not contain all information available regarding this patient. Last updated 18.[facility] Allergies No known active allergies Medications * [...] fluticasone propionate (Flonase) 50 MCG/ACT nasal spray Cobden 2 (two) sprays into each nostril once [...] once daily 2 refills by 12/24/2025 * lwhpmbj-ezpspwaugtt-ryunsqhtzv (Breztri Aerosphere) 160-9-4.8 MCG/ACT inhaler (Started 01/26/2025) [...] atrial flutter 07/27/2017 Anticoagulation management encounter 06/28/2017 long-term current use of antiarrhythmic drug S/P ablation [...] Comments Blood Pressure 126/80 12/13/2024 3:36 PM HEALTH CLUB MANAGER Pulse 82 12/13/2024 3:36 PM HEALTH CLUB MANAGER Temperature 36.3 C (97.4 F) 12/13/2024 3:36 PM HEALTH CLUB MANAGER Respiratory Rate 20 12/13/2024 3:36 PM HEALTH CLUB MANAGER Oxygen Saturation 96% 12/13/2024 3:36 PM HEALTH CLUB MANAGER room air Inhaled Oxygen Concentration - - Weight 119.3 kg (263 lb) 12/13/2024 3:36 PM HEALTH CLUB MANAGER Height 182.9 cm (6') 12/13/2024 3:36 PM HEALTH CLUB MANAGER Body Mass Index 35.67 12/13/2024 3:36 PM HEALTH CLUB MANAGER Procedures * XR CHEST 2VW(Performed 12/13/2024) Performed [...] * XR Chest 2Vw (12/13/2024 2:58 PM HEALTH CLUB MANAGER) Only the most recent of3 resultswithin the time period is included. Anatomical Region Laterality Modality Chest Computed Radiogr aphy 12/13/2024 3:01 PM HEALTH CLUB MANAGER Impressions 12/13/2024 3:01 PM HEALTH CLUB MANAGER IMPRESSION: No acute disease. > Interpreting Provider: Jean-Pierre Sepulveda MD on 12/13/2024 3:01 PM Narrative 12/13/2024 3:01 PM HEALTH CLUB MANAGER Chest Two Views History: R06.00: Dyspnea, [...] CDT Aminah Gaxiola MD 04/04/2023 4:[address] [facility] CPAP TITRATION POLYSOMNOGRAPHY REPORT Name: [...] mg of Ambien before sleep. PROCEDURE: Overnight metallurgy laboratory technician attended polysomnography was carried out utilizing continuous digital monitoring at the [facility] with a CPAP titration [...] the overnight PSG including the patient questionnaire, metallurgy laboratory technician notes and all associated tabulated data. FOLLOW UP: Follow up with ordering physician to discuss results. Please call [phone] if there is any question regarding this patient's care. Aminah Gaxiola M.D. Steeping Press Tender [facility] at [facility] Diplomat [employer] Sleep Medicine (DABSM,) Diplomat Pulmonar, Critical Care and Sleep Medicine (ABIM) Procedure Note Aminah Gaxiola MD - 03/27/2023 11:59 PM CDT [facility] CPAP TITRATION POLYSOMNOGRAPHY REPORT Name: Mesfin Castañeda [...] mg of Ambien before sleep. PROCEDURE: Overnight metallurgy laboratory technician attended polysomnography was carried out utilizingcontinuous digital monitoring at the [facility] with a CPAPtitration Protocol. [...] and heated humidifier. Mask used in the [employer]estream Airfit F20 Medium. Patient should be scheduled [...] on the overnight PSGincluding the patient questionnaire, metallurgy laboratory technician notes and all associatedtabulated data. FOLLOW UP: Follow up with ordering physician to discuss results. Please call [phone] if there is any question regarding this patient'scare. Aminah Gaxiola M.D. Steeping Press Tender [facility] Diplomat [employer] (DABSM,) Diplomat Pulmonar, Critical Care and Sleep Medicine (ABIM) Lou Irwin SUPERVISOR FLESHING-FOUR SLIDE MACHINE OPERATOR SLEEP CENTER RHETT NAYLOR [facility]PH[facility] MEDQUIST * DERMATOPATHOLOGY (01/03/2023 12:00 AM [facility]) Case Report Dermatopathology Report Case: [id number] Authorizing Provider: Radha Salinas PA-C Collected: 01/03/2023 12:00 AM Ordering Location: [facility] DermPath Lab Received: 01/06/2023 07:50 AM Pathologist: Gail Lee MD Specimen: Skin, right ventral lateral proximal forearm triangulation: 8cm to lateral epicondyle 4:03 PM [facility] DERMATOPATHOLOGY LABORATORY Final Diagnosis Specimen A. 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 Jar 0. 4:03 PM [facility] DERMATOPATHOLOGY LABORATORY Microscopic Description Specimen A. SKIN, right ventral lateral proximal forearm triangulation: 8cm to lateral epicondyle: The epidermis shows parakeratosis, full thickness disorderly maturation of keratinocytes, mitoses at different levels, and dyskeratotic cells. 4:03 PM [facility] DERMATOPATHOLOGY LABORATORY Disclaimer An external and internal positive and negative controls are appropriate for the histochemical, immunohistochemical and immunofluorescence stain(s) in this case (if any), except where stated explicitly. The performance characteristics of the stain(s) cited in this report were developed and its performance characteristic determined by the Dermatopathology Laboratory at [facility], directed by Dr. Valentin Cheatham. These tests need not be, and therefore are not, approved by the [place] Food and Drug Administration. The tests are used for clinical purposes. Billing Codes Specimen Charges Stain Charges 74672 1 3 4:03 PM HEALTH CLUB MANAGER DERMATOPATHOLOGY LABORATORY Embedded Images 3 4:03 PM HEALTH CLUB MANAGER DERMATOPATHOLOGY LABORATORY Pathology/Cytolog y TISSUE SPECIMEN FROM SKIN / Unknown 01/03/2023 01/06/2023 7:50 AM HEALTH CLUB MANAGER Radha Salinas PA-C LAB - PATHOLOGY/CYTO LOGY ORDERABLES DERMATOPATHOLOGY LABORATORY [facility] - Department of Dermatology [address], [address] [phone] * COMPLETE PFT W/WO BRONCHODILATOR (08/23/2022 12:00 PM CDT) 08/23/2022 12:0 0 PM CDT Narrative Procedure Note Alfonzo Sims MD - 08/23/2022 12:59 PM CDT [facility] PULMONARY FUNCTION TEST REPORT PATIENT: MESFIN CASTAÑEDA MR#: [id number] ADMIT DATE: 08/23/2022 CSN: [id number] DATE OF PROCEDURE: 08/23/2022 :1945 PHYSICIAN: Alfonzo [...] for lung volume. Alfonzo Camarillo MD YONATHAN/MODL #:[id number] Leo Wang MD RESPIRATORY THERA PY ORDERABLES [facility] MEDQUIST * CPAP/BIPAP TITRATION (07/16/2021 12:00 PM CDT) 07/16/2021 12:0 0 PM CDT Narrative Procedure Note Fernie Noble MD - 07/17/2021 11:59 PM CDT [facility] POLYSOMNOGRAPHY PATIENT: MESFIN CASTAÑEDA MR#: [id number] ADMIT DATE: 07/17/2021 CSN: [id number] DISCH DATE: ROOM: PHYSICIAN: Fernie Noble MD [...] Weight loss recommended. Fernie Noble MD MSD/MODL #:[id number] Yasmeen Frances MD SLEEP CENTER ORDERAB LES Performing Organization Address City/[facility] Co de Phone Number DPH[facility] REBECA * [...] THERAPY ORDERABLES [facility] RESULT SCAN Care Teams Learning Coach Relationship Specialty Start Date End Date Odin Alex MD [address] [place] [address] [address] [place] [address] PCP - General Internal Medicine 04/12/19 [place] [address] [place] [address] PCP - Attributed-Murray RUBIO 01/01/25 [place] [address] [facility] [address] [place] [address] Pulmonary Disease 05/09/22
--- OUTSIDE RECORDS SUMMARY | 2025-02-06 20:23 | XMS_ITS | Referral Summary ---
Author Organization [facility] Address [address] [place] [address] Care Team Providers Care Group Teacher Name Role Phone Odin Alex MD Primary Care Provider Gene De La Garza MD Unavailable [phone] Encounters Date Type Department Care Team Description 11/25/2024 7:55 AM PLAYER MANAGER - 11/26/2024 1:45 PM [facility] Hospital Encounter [address] [address] Gene De La Garza MD CAD (coronary artery disease) Discharge Disposition: Discharge to home or self care 11/25/2024 10:00 AM PLAYER MANAGER - 11/25/2024 12:00 PM [facility] Surgery [facility] Cardiac Catheterization Lab [address] [place] [id number] Gene De La Garza MD PCI SONIA MAJOR CORONARY C9600 - 42216 11/18/2024 Orders Only [facility] Cardiac Catheterization Lab [address] [place] [id number] Gene De La Garza MD CAD (coronary [...] 07/27/2017 S/P ablation of atrial fibrillation 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 As long as they remain on this medication, an ECG will be performed every 6 months for monitoring. Assessment & Plan (12/24/2017 4:09 PM PLAYER MANAGER): 12-lead ECG today does not demonstrate any [...] Eliquis 5 mg twice daily.He has a NQR9SQ9-MUGn score of 2, therefore it is recommended that he remain anticoagulated for thromboprophylaxis. Assessment & Plan (12/24/2017 4:10 PM PLAYER MANAGER): The patient has a AIT5IB7-CGDo score of 2 (annualized risk of stroke 2.2 %). I have therefore recommended that he remain anticoagulated for thromboprophylaxis. The patient will follow-up with me in 3-4 months for an office visit and twelve- lead ECG. Assessment & Plan (09/29/2017 2:05 PM CDT): The patient has a DPU9GD0-HZPp score of 2 (annualized risk of stroke 2.2 %). I have therefore recommended that he remain anticoagulated for thromboprophylaxis. He will follow-up with me 1 month after cardioversion. Assessment & Plan (07/27/2017 2:59 PM CDT): The patient has a QIJ2OZ8-XNYf score of 2 (annualized risk of stroke 2%). I have therefore recommended that he remain anticoagulated for thromboprophylaxis. The patient will follow up with me in 6 months, unless he has recurrence. Assessment & Plan (06/28/2017 2:51 PM CDT): The patient has a WLD9LN2-NCRx score of 2 (annualized risk of stroke [...] EKG. Assessment & Plan (12/24/2017 4:09 PM PLAYER MANAGER): The patient is status post ablation for [...] on file Legal Sex Male 10:59 AM PLAYER MANAGER Gender Identity Male 12/28/2021 10:54 PM PLAYER MANAGER Sexual Orientation Straight 12/28/2021 10 :54 PM PLAYER MANAGER Last Filed Vital Signs Vital Sign Reading Time Taken Comments Blood Pressure 149/82 11/26/2024 12:09 PM PLAYER MANAGER Pulse 75 11/26/2024 12:09 PM PLAYER MANAGER Temperature 36.7 C (98 F) 11/26/2024 12:09 PM PLAYER MANAGER Respiratory Rate 20 11/26/2024 12:09 PM PLAYER MANAGER Oxygen Saturation 97% 11/26/2024 12:09 PM PLAYER MANAGER Inhaled Oxygen Concentration - - Weight 115.7 kg (255 lb) 11/25/2024 12:14 PM PLAYER MANAGER Height 182.9 cm (6') 11/25/2024 12:14 PM PLAYER MANAGER Body Mass Index 34.58 11/25/2024 12:14 PM PLAYER MANAGER Plan of Treatment Not on file Goals [...] home safety. Medical Devices Implanted Type Area Electronics Recycler Device Identifier Shelf Expiration Date Model / Serial / Lot TMAT Stent Coronary Drug Eluting Rapid Exchange Synergy Xd [id number] Minto [employer]ium [id number] - [id number] Implanted:Qty: 1 on 11/25/2024 by Gene De La Garza MD at [facility] TMAT 05/05/2026 [id number] / / [id number] Procedures Procedure Name Priority Date/Time Associated Diagnosis Comments EGFR Routine 11/26/2024 4:08 AM PLAYER MANAGER DIFFERENTIAL AUTO Routine 11/26/2024 4:0 8 AM PLAYER MANAGER CBC WITH AUTO DIFFERENTIAL Routine 11/26/2024 4:08 AM PLAYER MANAGER BASIC METABOLIC PANEL Routine 11/26/2024 4:08 AM PLAYER MANAGER CORONARY OCT, 1ST VESSEL Routine 11/25/2024 11:36 AM PLAYER MANAGER CAD (coronary artery disease) VASCULAR ACCESS US GUIDANCE Routine 11/25/2024 11:36 AM PLAYER MANAGER CAD (coronary artery disease) SONIA MAJOR CORONARY Routine 11/25/2024 11 :36 AM PLAYER MANAGER CAD (coronary artery disease) POCT ACTIVATED CLOTTING TIME, HIGH RANGE Routine 11/25/2024 11:19 AM PLAYER MANAGER MODERATE SEDATION FIRST 15MIN 5+ YEAR [address] 11/25/2024 10:13 AM PLAYER MANAGER CAD (coronary artery disease) EGFR Routine 11/25/2024 9:01 AM PLAYER MANAGER DIFFERENTIAL AUTO Routine 11/25/2024 9:0 1 AM PLAYER MANAGER COMPREHENSIVE METABOLIC PANEL Routine 11/25/2024 9:01 AM PLAYER MANAGER CBC WITH AUTO DIFFERENTIAL Routine 11/25/2024 9:01 AM PLAYER MANAGER CTA ABDOMEN PELVIS W WO CONTRAST Schedule Routine, Read Routine (OP Routine) 10/06/2023 1:35 PM PLAYER MANAGER Dissection of aorta, unspecified portion of aorta (HCC) from Last 3 Months or Most Recently Relevant to Health Maintenance Results * (ABNORMAL) eGFR (11/26/2024 4:08 AM PLAYER MANAGER) eGFR 51(L) >=60 mL/min/1. 73 m2 Comment: [...] last reviewed 2021. Blood 11/26/2024 4:08 AM PLAYER MANAGER 11/26/2024 5:06 AM PLAYER MANAGER us Gene De La Garza MD LAB BLOOD ORDERABLES Final Resu lt [facility] [address] [address] Department [place] [address] * Differential, auto (11/26/2024 4:08 AM PLAYER MANAGER) Neutrophil abs 6.0 1.5 - 6.5 K/cumm Imm gran abs 0.0 0.0 - 0.1 K/cumm [facility] Lymphocyte abs 1.9 0.8 - 3.3 K/cumm [facility] Monocyte abs 0.6 0.2 - 0.8 K/cumm [facility] Eosinophil abs 0.2 0.0 - 0.5 K/cumm [facility] Basophil abs 0.1 0.0 - 0.1 K/cumm [facility] Neutrophil pct 68.4 % [facility] Comment: Interpretive Data Percent cell count reference ranges are not reported, since discordance with absolute values may lead to misinterpretation of CBC data. Current Interpretive Data was last revised on 2018. Imm gran pct 0.5 % [facility] Comment: Interpretive Data Percent cell count reference ranges are not reported, since discordance with absolute values may lead to misinterpretation of CBC data. Current Interpretive Data was last revised on 2018. Lymphocyte pct 21.4 % [facility] Comment: Interpretive Data Percent cell count reference ranges are not reported, since discordance with absolute values may lead to misinterpretation of CBC data. Current Interpretive Data was last revised on 2018. Monocyte pct 6.9 % [facility] Comment: Interpretive Data Percent cell count reference ranges are not reported, since discordance with absolute values may lead to misinterpretation of CBC data. Current Interpretive Data was last revised on 2018. Eosinophil pct 1.8 % [facility] Comment: Interpretive Data Percent cell count reference ranges are not reported, since discordance with absolute values may lead to misinterpretation of CBC data. Current Interpretive Data was last revised on 2018. Basophil pct 1.0 % [facility] Comment: Interpretive Data Percent cell count reference ranges are not reported, since discordance with absolute values may lead to misinterpretation of CBC data. Current Interpretive Data was last revised on 2018. Blood 11/26/2024 4:08 AM PLAYER MANAGER 11/26/2024 5:03 AM PLAYER MANAGER us Gene De La Garza MD LAB BLOOD ORDERABLES Final Resu lt [facility] [address] [address] Department [place] [address] * (ABNORMAL) CBC with auto differential (11/26/2024 4:08 AM PLAYER MANAGER) WBC 8.8 3.8 - 9.9 K/cumm Hgb [...] K/cumm [facility] Blood 11/26/2024 4:08 AM PLAYER MANAGER 11/26/2024 5:03 AM PLAYER MANAGER us Gene De La Garza MD LAB BLOOD ORDERABLES Final Resu lt [facility] [address] [address] Department [place] [address] * (ABNORMAL) Basic metabolic panel (11/26/2024 4:08 AM PLAYER MANAGER) Sodium 137 135 - 145 mmol/L Potassium, pl 4.5 3.3 - 4.9 mmol/L [facility] Chloride 101 97 - 110 mmol/L [facility] CO2 24 22 - 32 mmol/L [facility] Anion gap 12 2 - 15 mmol/L [facility] BUN 37(H) 6 - 25 mg/dL [facility] Creatinine 1.42(H) 0.80 - 1.30 mg/dL [facility] Glucose 110 70 - 199 mg/dL [facility] Comment: Interpretive Data Fasting glucose >/= 126 [...] mg/dL [facility] Blood 11/26/2024 4:08 AM PLAYER MANAGER 11/26/2024 5:06 AM PLAYER MANAGER Gene De La Garza MD LAB BLOOD ORDERABLES Final Resu lt [facility] [address] [address] Department [place] [address] * SONIA MAJOR CORONARY, VASCULAR ACCESS US GUIDANCE, CORONARY OCT, 1ST VESSEL (11/25/2024 11:36 AM PLAYER MANAGER) Anatomical Region Laterality Modality X-Ray Angiograph y Narrative 11/25/2024 11:54 AM PLAYER MANAGER Table formatting from the original result was not included. PCI SONIA MAJOR CORONARY C9600 - 68723, MODERATE SEDATION FIRST 15MIN 5+ YEAR , ULTRASOUND GUIDANCE FOR VASCULAR ACCESS S&I 23134, IVUS/OCT CORS OR GRAFTS, FIRST VESSEL (+) [id number] Brief Op Note Attending Websphere Portal Developer: Gene De La Garza MD Primary: Gene De La Garza MD CV Documenter: Ilene Chaves, OLYA CV Scrub: Carolyn Cole RT; Layo Cerrato CV Editor House Organ: Halley Pro; Sweetie Lee RN Date of Procedure: 11/25/2024 Specimens: No specimen collected in procedure Preoperative Diagnosis: Pre-op Diagnosis * CAD (coronary artery disease) [I25.10] Postoperative Diagnosis: Post-op Diagnosis * CAD (coronary artery disease) [I25.10] Name of Procedure: Procedure(s): PCI SONIA MAJOR CORONARY C9600 - 52739 MODERATE SEDATION FIRST 15MIN 5+ YEAR [address] ULTRASOUND GUIDANCE FOR VASCULAR ACCESS S&I 50398 IVUS/OCT CORS OR GRAFTS, FIRST VESSEL (+) [id number] Implants: Implant Name Type Inv. Item Serial No. Electronics Recycler Lot No. LRB No. Used Action [employer]Me[employer] Stent Coronary Drug Eluting Rapid Exchange Synergy Xd [id number] Minto Chromium [id number] - [id number] [employer] Stent Coronary Drug Eluting Rapid Exchange Synergy Xd [id number] Minto [employer]ium [id number] TMAT [id number] N/A 1 Implanted Cardiac catheterization procedure report summary Clinical history: 79-year-old gentleman with angina event stress test which was demonstrating anterior ischemia underwent cardiac catheterization by Dr. Chay Valentin, it demonstrated severe LAD lesion in proximal segment involving the bifurcation of diagonal and large septal thermal cutter hand. Patient has been scheduled for PCI with [...] Low Risk (<1% annual risk of or AL) [] Intermediate Risk (1-3% annual risk of or AL [x] High Risk (>3% annual risk of or AL) 5. Stress-induced perfusion abnormalities encumbering >=10% myocardium [...] 2 mg Versed and 75 mcg fentanyl Web Software Engineer: Gene De La Garza MD Procedure summary: [...] any plaque shift into diagonal or septal thermal cutter hand. Patient tolerated the procedure well symptomatically. No postprocedure complication, estimated blood loss 5 cc. Catheter was removed and TR band was applied achieving hemostasis. Impression: Successful PCI of 80% proximal LAD stenosis involving diagonal and large septal thermal cutter hand trifurcation with 3.5X16 synergy SONIA post dilated [...] Clotting Time, High Range (11/25/2024 11:19 AM PLAYER MANAGER) ACT 239(H) 87 - 138 sec Blood 11/25/2024 11:1 9 AM PLAYER MANAGER 11/25/2024 11:19 AM PLAYER MANAGER Gene De La Garza MD LAB BLOOD ORDERABLES Final Resu lt [facility] [address] [address] Department [place] [address] * (ABNORMAL) eGFR (11/25/2024 9:01 AM PLAYER MANAGER) eGFR 56(L) >=60 mL/min/1. 73 m2 Comment: [...] last reviewed 2021. Blood 11/25/2024 9:01 AM PLAYER MANAGER 11/25/2024 9:05 AM PLAYER MANAGER us Gene De La Garza MD LAB BLOOD ORDERABLES Final Resu lt [facility] [address] [address] Department [place] [address] * Differential, auto (11/25/2024 9:01 AM PLAYER MANAGER) Neutrophil abs 6.4 1.5 - 6.5 K/cumm Imm gran abs 0.1 0.0 - 0.1 K/cumm [facility] Lymphocyte abs 1.8 0.8 - 3.3 K/cumm [facility] Monocyte abs 0.6 0.2 - 0.8 K/cumm [facility] Eosinophil abs 0.1 0.0 - 0.5 K/cumm [facility] Basophil abs 0.1 0.0 - 0.1 K/cumm [facility] Neutrophil pct 70.9 % [facility] Comment: Interpretive Data Percent cell count reference ranges are not reported, since discordance with absolute values may lead to misinterpretation of CBC data. Current Interpretive Data was last revised on 2018. Imm gran pct 0.7 % [facility] Comment: Interpretive Data Percent cell count reference ranges are not reported, since discordance with absolute values may lead to misinterpretation of CBC data. Current Interpretive Data was last revised on 2018. Lymphocyte pct 19.3 % [facility] Comment: Interpretive Data Percent cell count reference ranges are not reported, since discordance with absolute values may lead to misinterpretation of CBC data. Current Interpretive Data was last revised on 2018. Monocyte pct 6.7 % [facility] Comment: Interpretive Data Percent cell count reference ranges are not reported, since discordance with absolute values may lead to misinterpretation of CBC data. Current Interpretive Data was last revised on 2018. Eosinophil pct 1.5 % [facility] Comment: Interpretive Data Percent cell count [...] revised on 2018. Blood 11/25/2024 9:01 AM PLAYER MANAGER 11/25/2024 9:01 AM PLAYER MANAGER Gene De La Garza MD LAB BLOOD ORDERABLES Final Resu lt Performing Organization Address [facility]/ZIP Co de Phone Number [facility] [address] [place] [address] * (ABNORMAL) CBC with auto differential (11/25/2024 9:01 AM PLAYER MANAGER) WBC 9.1 3.8 - 9.9 K/cumm Hgb 14.1 13.0 - 17.5 g/dL [facility] Hct 43.3 38.9 - 50.3 % [facility] Plt 190 150 - 400 K/cumm [facility] MPV 9.0(L) 9.1 - 12.3 fL [facility] RBC 4.55 4.30 - 5.80 M/cumm [facility] MCV 95.2 81.3 - 96.4 fL [facility] MCH 31.0 27.1 - 33.3 pg [facility] MCHC 32.6 32.3 - 35.7 g/dL [facility] RDW CV 14.9 11.1 - 14.9 % [facility] RDW SD 52.1(H) 35.7 - 48.1 fL [facility] NRBC abs 0.00 0.00 - 0.01 K/cumm [facility] Blood 11/25/2024 9:01 AM PLAYER MANAGER 11/25/2024 9:01 AM PLAYER MANAGER Gene De La Garza MD LAB BLOOD ORDERABLES Final Resu lt Performing Organization Address [facility] Co de Phone Number [facility] ARA[address] [place] [address] * (ABNORMAL) Comprehensive metabolic panel (11/25/2024 9:01 AM PLAYER MANAGER) Sodium 141 135 - 145 mmol/L Potassium, [...] Units/L [facility] Blood 11/25/2024 9:01 AM PLAYER MANAGER 11/25/2024 9:01 AM PLAYER MANAGER us Gene De La Garza MD LAB BLOOD ORDERABLES Final Resu lt [facility] [address] [address] Department [place] [address] * CTA Abdomen Pelvis (10/06/2023 1:35 PM PLAYER MANAGER) Anatomical Region Laterality Modality Body N/A Computed Tomogra phy 10/06/2023 2:15 PM PLAYER MANAGER Impressions 10/07/2023 1:05 PM PLAYER MANAGER IMPRESSION: 1. Stable small infrarenal penetrating atherosclerotic ulcers. No abdominal aortic aneurysm or evidence of instability. 2. Morphologic features of hepatic fibrosis. Dictated by: Melonie Rodriguez M.D. The radiology attending physician has personally reviewed this study, and had reviewed and/or edited this written report and agrees with it. Electronically signed by: Cuauhtemoc Otero M.D. Narrative 10/07/2023 1:05 PM PLAYER MANAGER EXAMINATION: CT ANGIOGRAPHY OF THE ABDOMEN AND [...] Advance Directives For more information, please contact: [phone] * Full Code (Latest Code Status on File) Date Activated Date Inactivated Comments 11/25/2024 11:59 AM 11/26/2024 5:49 PM Care Teams Group Teacher Relationship Specialty Start Date End Date Odin Alex MD PCP - General 02/28/17 Gene De La Garza MD [address] [place] [address] Consulting Physician Cardiology 11/26/24
--- OUTSIDE RECORDS SUMMARY | 2025-02-06 20:23 | XMS_ITS ---
Author Name Sanchez RN, PRODUCTION CHECKER, Bonita Whitten Address [address] [place] [address] Phone [phone] Organization [facility] Care Team Providers Care Senior Sql Dba Name Role Phone Shameka Bradford Unavailable [phone] Reason for Referral Not Available Allergies, adverse [...] mplaint [facility] [place], [place] 12/30/2024 Encntr for f/u exam aft trtm t for cond oth than malig neoplmAcute respiratory failure with hypoxia [facility] 7 Day Dis[facility] [place] 12/30/2024 Encntr for f/u exam aft trtm t for cond oth than malig neoplmAcute respiratory failure with hypoxia [facility] 7 Day [facility] [place], 12/30/2024 Encntr for f/u exam aft trtm t for cond oth than malig neoplmAcute respiratory failure with hypoxia Telephone E/M Service; 11-20 min of Medical Discussion (Audio Only) [place], 01/03/2025 Acute respiratory failure with hypoxia Telephone E/M Service; 11-20 min of Medical Discussion (Audio Only) [place], 01/03/2025 Acute respiratory failure with hypoxia Telephone E/M Service; 11-20 min of Medical Discussion (Audio Only) [place], 01/03/2025 Acute respiratory failure with hypoxia Telephone E/M Service; 11-20 min of Medical Discussion (Audio Only) [place], 01/03/2025 Acute respiratory failure with hypoxia Vital Signs Date of Collection Vitals 2024-12-30 12:11:34 Pain Scale - 7.0 {sc ore} 2025-01-03 09:21:47 BP Diastolic - 54.0 mm[Hg]BP Systolic - 134.0 mm[Hg]O2 % BldC Oximetry - 93.0 % Social History Sex Male History of Procedures Procedures Service Procedure code Service date Servicing provider Phone# [facility] 7 Day Disch [address] 2024-12-30 No Data Available No Data Avail able Medrec Completed within 30 Days of Discharge 2024-12-30 No Data Available No Data Availa ble Pain Assessment - Pain Documented 1122024-12-30 No Data Available No Data Availa ble Telephone E/M Service; 11-20 min of Medical Discussion (Audio Only) [id number] 2025-01-03 No Data Available No Data Availa [...] Plans 2024-12-30 12:11:34 Pt went to the [facility] due to breathing issues. Was discharged home. Advised to f/u with PCP. Has PCP visit on 01/11/25 and is waiting to get scheduled with a new Pulmonary doctor.Pt Agreed to a post discharge visit with a [facility] Provider: Appointment scheduled with Shameka Bradford, RN, PRODUCTION CHECKER on Friday01/03/2025 at 4:30 pm (EST) - 3:30 pm (LIFE CARE PLANNER).RN reinforced availability of provider 23/06 for 30 days after discharge and encouraged CB w/ any concerns or if pt is worse in any way. Advised pt to call to reach our staff.Needs/concerns for [facility] provider to address during PD visit - [...] IPAdm it Date: 12/24/24Discharge Date: 12/27/24Hospital name: [facility] diagnosis: ACUTE RESPIRATORY FAILURE WITH HYPOXIA [...] still waiting to receive records [facility] the [facility]Ha adequate amount of routine medications, and no questions or concerns regarding these.
--- OUTSIDE RECORDS SUMMARY | 2025-02-06 20:23 | XMS_ITS | Encounter Summary ---
Author Organization [facility] Address [address] [facility] [address] [place] [address] Care Team Providers Care Sap Pi Architect Name Role Phone Odin Alex MD Primary Care Provider Gene De La Garza MD Unavailable Encounter Details Date Type Department Care Team (Late st Contact Info) Description 03/27/2017 Orders Only [facility] Provider, MD Shanell [address] [place], [place] [id number] Social History Tobacco Use Types Packs/Day Years Used Date Smoking Tobacco: Former Cigarettes Q uit: 12/01/2000 Comments:Smoking History Pac ks/day: 20 Packs Alcohol Use Standard Drinks/Week Comments No 0 (1 standard drink = 0.6 oz pur e alcohol) Sex and Gender Information Value Date Recorded Sex Assigned at Not on file Legal Sex Male 10:59 AM EXTRUSION SUPERVISOR Gender Identity Male 12/28/2021 10:54 PM EXTRUSION SUPERVISOR Sexual Orientation Straight 12/28/2021 10 :54 PM EXTRUSION SUPERVISOR documented as of this encounter Plan of [...] on filedocumented in this encounter Care Teams Sap Pi Architect Relationship Specialty Start Date End Date Odin Alex MD PCP - General 02/28/17 Gene De La Garza MD [address] [place] [address] Consulting Physician Cardiology 11/26/24 documented as of this encounter
--- OUTSIDE RECORDS SUMMARY | 2025-02-06 20:24 | XMS_ITS | Clinical Summary ---
Author Organization [facility] Address [address] [place] [address] Care Team Providers Care Director Cardiovascular Name Role Phone Odin Alex MD Primary Care Provider [phone] Leo Wang MD Unavailable Leo Wang MD Unavailable [phone] Source Comments [facility],non-owned Affiliates and Associated Physician Practices is amultiple site organization consisting of ambulatory clinics and hospital sitesin [place], [place], [place] and [place]. This disclosure is being madepursuant to the Care Everywhere program and may not contain all information available regarding this patient. Last updated 18.[facility] Allergies No known active allergies Medications * [...] fluticasone propionate (Flonase) 50 MCG/ACT nasal spray [place] 2 (two) sprays into each nostril once [...] Eliquis 5 mg twice daily.He has a [id number] score of 2, therefore it is recommended [...] Type Department Care Team Description 01/26/2025 Refill [facility] Pulmonology [id number] [place] [address] [address] [place] [address] Leo Wang MD Refill Request 12/24/2024 Refill [facility] Pulmonology [id number] [place] [address] [address] [place] [address] Leo Wang MD Refill Request 12/15/2024 Telephone [facility] [address] [place] [address] Leo Wang MD General 12/13/2024 3:30 PM RE[facility]AR[facility] CONSULTANT Office Visit [facility] Pulmonology [id number] [place] [address] [address] [place] [address] Leo Wang MD Chronic respiratory failure with hypoxia (HCC) (Primary Dx); COPD, 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 (28% of pred from 08/2022 with significant reversible component).; CASTRO treated with BiPAP; Nodule of lower lobe of left lung - 4 mm, indeterminate and unchanged on last OSH chest CT.; History of tobacco abuse; History of COVID-19; Coronary artery disease involving qagan tayagungin coronary artery of qagan tayagungin heart without angina pectoris; Hypertension, unspecified type; PAF (paroxysmal atrial fibrillation) (HCC); Chronic anticoagulation; Obesity (BMI 30-39.9) 12/13/2024 2:30 PM REWARDS CONSULTANT - 12/13/2024 11:59 PM REWARDS CONSULTANT Hospital Encounter [facility] - Radiology [address] [place] [address] Leo Wang MD Discharge Disposition: Home or [...] Comments Blood Pressure 126/80 12/13/2024 3:36 PM REWARDS CONSULTANT Pulse 82 12/13/2024 3:36 PM REWARDS CONSULTANT Temperature 36.3 C (97.4 F) 12/13/2024 3:36 PM REWARDS CONSULTANT Respiratory Rate 20 12/13/2024 3:36 PM REWARDS CONSULTANT Oxygen Saturation 96% 12/13/2024 3:36 PM REWARDS CONSULTANT room air Inhaled Oxygen Concentration - - Weight 119.3 kg (263 lb) 12/13/2024 3:36 PM REWARDS CONSULTANT Height 182.9 cm (6') 12/13/2024 3:36 PM REWARDS CONSULTANT Body Mass Index 35.67 12/13/2024 3:36 PM REWARDS CONSULTANT Plan of Treatment Health Maintenance Due Date [...] XR CHEST 2VW Routine 12/13/2024 2:58 PM REWARDS CONSULTANT Dyspnea, unspecified type Acute on chronic [...] * XR Chest 2Vw (12/13/2024 2:58 PM REWARDS CONSULTANT) Anatomical Region Laterality Modality Chest Computed Radiogr aphy 12/13/2024 3:01 PM REWARDS CONSULTANT Impressions 12/13/2024 3:01 PM REWARDS CONSULTANT IMPRESSION: No acute disease. > Interpreting Provider: Jean-Pierre Sepulveda MD on 12/13/2024 3:01 PM Narrative 12/13/2024 3:01 PM REWARDS CONSULTANT Chest Two Views History: R06.00: Dyspnea, [...] ONLY from Last 3 Months Care Teams Director Cardiovascular Relationship Specialty Start Date End Date Odin Alex MD [address] [place] [address] [address] [place] [id number] PCP - General Internal Medicine 04/12/19 [place] [id number] [email or web address] [address] [place] [id number] PCP - [facility] 01/01/25 [place] [address] [place] [address] Pulmonary Disease 05/09/22
[2025-02-06] MEDS: TETANUS,DIPHTHERIA,AC PERTUSSIS ADULT (0.5 ML) BOOSTRIX IM (20:31)
--- NOTE | 2025-02-06 20:37 | ED.FALL ---
HPI - Fall General Chief Complaint: Fall Stated Complaint: Fall-on Eliquis and Plavix Time Seen by Provider: 02/06/25 19:43 History of Present Illness HPI Narrative: 79M p/w fall on eliquis. He had been trying to pull something off a shelf and then lost his balance and fell, landing on the ground on his back in the back of his head and right elbow. Having some pain to the right upper back, head and elbow, no loss of consciousness Related Data Home Medications ?Medication ?Instructions ?Recorded ?Confirmed ?Last Taken ?Type acetaminophen 650 mg tablet 650 mg PO Q6H PRN pain 09/24/22 12/23/24 12/22/24 History alprazolam 0.25 mg tablet 0.25 mg PO HS PRN Anxiety 09/24/22 12/23/24 12/22/24 History apixaban 5 mg tablet (Eliquis) 5 mg PO Q12H 09/24/22 12/23/24 09/23/22 21:00 History diphenhydramine HCl 25 mg capsule 25 mg PO TID PRN Itching 09/24/22 12/23/24 Unknown History (Benadryl) fluticasone propionate 50 2 spray intranasal DAILY 09/24/22 12/23/24 12/22/24 History mcg/actuation nasal spray,suspension loratadine 10 mg tablet (Claritin) 10 mg PO DAILY 09/24/22 12/23/24 12/22/24 History melatonin 10 mg tablet 10 mg PO HS 09/24/22 12/23/24 12/22/24 History metoprolol succinate 100 mg 25 mg PO QPM 09/24/22 12/23/24 12/22/24 History tablet,extended release 24 hr montelukast 10 mg tablet 10 mg PO DAILY 09/24/22 12/23/24 12/22/24 History yrwqlcgf-kc-wiipn 300 mcg-K 60 1 tablet PO DAILY 09/24/22 12/23/24 12/22/24 History mcg-lycop 600 mcg-lutein 300 mcg tablet (Centrum Silver Men) pantoprazole 40 mg tablet,delayed 40 mg PO QPM 09/24/22 12/23/24 12/22/24 History release pravastatin 40 mg tablet 40 mg PO QPM 09/24/22 12/23/24 12/22/24 History valsartan 320 0.5 tablet PO DAILY 09/24/22 12/24/24 12/22/24 History mg-hydrochlorothiazide 25 mg tablet budesonide 160 mcg-glycopyr 9 1 inh inhalation BID 08/15/23 12/23/24 12/22/24 History mcg-formot 4.8 mcg/actuation HFA inhaler (Breztri Aerosphere) clopidogrel 75 mg tablet 75 mg PO DAILY 12/23/24 12/23/24 12/22/24 History escitalopram oxalate 10 mg tablet 10 mg PO DAILY 12/23/24 12/23/24 12/22/24 History furosemide 40 mg tablet 40 mg PO DAILY 12/23/24 12/23/24 12/22/24 History gabapentin 100 mg capsule 100 mg PO TID 12/23/24 12/23/24 12/22/24 History naltrexone 1.5 mg capsule 1.5 mg PO DAILY 12/23/24 12/23/24 12/22/24 History trazodone 100 mg tablet 100 mg PO HS 12/23/24 12/23/24 12/22/24 History Allergies Allergy/AdvReac Type Severity Reaction Status Date / Time nirmatrelvir (From Paxlovid AdvReac Insomnia Verified 01/16/24 16:35 (EUA)) ritonavir (From Paxlovid AdvReac Insomnia Verified 01/16/24 16:35 (EUA)) Review of Systems Review of Systems: All systems reviewed & are unremarkable except as noted in HPI and below PMFSH Past Medical History Medical History Skin cancer s/p excision Kidney stones GERD (gastroesophageal reflux disease) Enlarged prostate Chronic obstructive pulmonary disease Congestive heart failure (CHF) Chronic anticoagulation Cardiomegaly Hypertension Anxiety Arthritis Spinal stenosis Obstructive sleep apnea on CPAP Aortic aneurysm Being monitored by a vascular surgeon in [place]. 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 No aneurysm. Paroxysmal atrial fibrillation Cardioversion x7, lesion in 2013 Surgical History Surgical History History of bilateral inguinal hernia repair History of bilateral cataract extraction History of cardiac radiofrequency ablation Family History Family History (Updated 02/01/25 @ 15:30 by Charito Brown RN) Father Hernia Heart problem Lung cancer Coronary artery disease Acute myocardial infarction Pulmonary disease Sibling Family history of heart disease in male family member before age 55 Heart problem Breast cancer Uterine cancer Hypertension Coronary artery disease Diabetes mellitus Pulmonary disease Mother Diabetes mellitus Anemia Hypertension Social History Social History Social History: Surrogate medical decision maker: Maria D Russ, spouse. Code status: Full code. Smoking packs per day: 0.75 Smoking cigarettes per day: 15.0 Years smoked: 21 Smoking pack-years: 15.75 Smoking status: Former smoker Second hand tobacco smoke exposure: No Alcohol intake: current Drinks per week: 1 Substance use: never Substance use type: does not use Do You Feel Safe in your Home?: Yes Lack of Transportation: No Lack of Food: Never True Current Housing: I Have Housing Concerned About Future Housing: No Difficulty Paying Gas/Electric Bills: No Difficulty Paying for Meds: No Currently Unemployed: No Education: Bachelor's Degree Difficulty w/ Childcare or Family Care: No Living arrangements: with family Spiritual care concerns: No Exam Narrative: EXAMINATION OF ORGAN SYSTEMS/BODY AREAS: Constitutional: Vital signs per nursing GENERAL:[No acute distress, non-toxic appearing.] HEAD: She slight occipital contusion EYES: EOMI, conjunctiva normal ENT: Hearing grossly intact LUNGS: Nonlabored breathing. HEART: [Regular rate and rhythm], no chest wall tenderness ABD: [Soft], [nontender to palpation] EXT: Normal range of motion SKIN: 2cm skin tear to R elbow NEURO: [Alert and oriented x 3. No gross focal sensory or strength deficits.] PSYCH: Normal affect Course Vital Signs Vital signs: Vital Signs Temperature 98.3 F 02/06/25 19:37 Pulse Rate 71 02/06/25 19:37 Respiratory Rate 15 02/06/25 19:37 Blood Pressure 120/73 02/06/25 19:37 Pulse Oximetry 96 02/06/25 19:37 Oxygen Delivery Room Air 02/06/25 19:37 Temperature 98.3 F 02/06/25 19:37 Pulse Rate 71 02/06/25 19:37 Respiratory Rate 15 02/06/25 19:37 Blood Pressure 120/73 02/06/25 19:37 Pulse Oximetry 96 02/06/25 19:37 Oxygen Delivery Room Air 02/06/25 19:37 MDM - Fall MDM Narrative Medical decision making narrative: Patient presenting here with ground level fall after he lost his balance, on exam he does have a slight contusion to the back of his head, no midline tenderness, some pain to the right back/posterior ribs, and a skin tear to the right elbow. No obvious deformity, he is well-appearing, since he is on Eliquis with some right posterior rib tenderness, will obtain CT to rule out acute abnormality. Imaging thankfully normal, including elbow x-ray, will update his tetanus shot wound is cleaned and dressed, discussed findings with patient and at bedside, he is stable for discharge with return precautions. Follow-up to PCP Discharge Plan Discharge Clinical Impression: Fall from ground level, Skin tear Patient Disposition: Home, Self-Care Condition: Stable Instructions: Fall Prevention for Older Adults (ED), Skin Tear (ED) Additional Instructions: Please follow up with your doctor; you can always return for any further issues. Patient Language: Paraguayan Prescriptions: New acetaminophen [Tylenol Extra Strength] 500 mg tablet 1,000 mg PO Q6H PRN (Reason: pain) Qty: 50 0RF methocarbamol 750 mg tablet 750 mg PO TID PRN (Reason: muscle spasm) Qty: 30 0RF lidocaine 5 % adhesive patch,medicated 1 patch topical DAILY Qty: 15 0RF Rx Instructions: leave on most painful area for up to 12 hrs No Action Breztri Aerosphere 160-9-4.8 mcg/actuation HFA aerosol inhaler 1 inh INHALATION BID pravastatin 40 mg tablet 40 mg PO QPM metoprolol succinate 100 mg tablet extended release 24 hr 25 mg PO QPM acetaminophen 650 mg Tablet 650 mg PO Q6H PRN (Reason: pain) alprazolam 0.25 mg Tablet 0.25 mg PO HS PRN (Reason: Anxiety) pantoprazole 40 mg tablet,delayed release (DR/EC) 40 mg PO QPM diphenhydramine HCl [Benadryl] 25 mg Capsule 25 mg PO TID PRN (Reason: Itching) montelukast 10 mg tablet 10 mg PO DAILY fluticasone propionate 50 mcg/actuation [place],Suspension 2 spray INTRANASAL DAILY Rx Instructions: administer into each nostril loratadine [Claritin] 10 mg Tablet 10 mg PO DAILY valsartan-hydrochlorothiazide 320-25 mg tablet 0.5 tablet PO DAILY Patient Comments: Started half pill 12/10/24 Centrum Silver Men 300-600-300 mcg Tablet 1 tablet PO DAILY melatonin 10 mg Tablet 10 mg PO HS Eliquis 5 mg tablet 5 mg PO Q12H Patient Comments: restart 12/26/24 escitalopram oxalate 10 mg tablet 10 mg PO DAILY furosemide 40 mg tablet 40 mg PO DAILY gabapentin 100 mg capsule 100 mg PO TID naltrexone 1.5 mg capsule 1.5 mg PO DAILY trazodone 100 mg tablet 100 mg PO HS clopidogrel 75 mg tablet 75 mg PO DAILY prednisone 20 mg Tablet 40 mg PO DAILY@0800 Qty: 4 0RF oseltamivir [Tamiflu] 75 mg Capsule 75 mg PO Q12HR Qty: 3 0RF doxycycline hyclate 100 mg Tablet 100 mg PO Q12HR Qty: 9 0RF guaifenesin [Mucus Relief ER] 600 mg Tablet Extended Release 12hr 600 mg PO Q12HR Qty: 30 0RF Follow-up/Referrals: Isai,Odin Maria MD [Primary Care Provider] - 2 Days
[2025-02-06 22:04] VITALS: BP 124/76; PULSE 97; RESP 14; O2SAT 96
== END 2025-02-06 22:07 | disposition home or self-care (01) ==
PROVIDERS: Emergency Provider Emergency Medicine; PCP Internal Medicine
DX: S51.011A Laceration without foreign body of right elbow, initial encounter (principal); S00.03XA Contusion of scalp, initial encounter; Z23 Encounter for immunization; J44.9 Chronic obstructive pulmonary disease, unspecified; I50.9 Heart failure, unspecified; I11.0 Hypertensive heart disease with heart failure; I48.0 Paroxysmal atrial fibrillation; I71.9 Aortic aneurysm of unspecified site, without rupture; M19.90 Unspecified osteoarthritis, unspecified site; N40.0 Benign prostatic hyperplasia without lower urinary tract symptoms; K21.9 Gastro-esophageal reflux disease without esophagitis; G47.33 Obstructive sleep apnea (adult) (pediatric); F41.9 Anxiety disorder, unspecified; Z85.828 Personal history of other malignant neoplasm of skin; Z87.442 Personal history of urinary calculi; Z87.891 Personal history of nicotine dependence; Z98.42 Cataract extraction status, left eye; Z98.41 Cataract extraction status, right eye; Z79.01 Long term (current) use of anticoagulants; Z79.899 Other long term (current) drug therapy; Z79.02 Long term (current) use of antithrombotics/antiplatelets; W18.39XA Other fall on same level, initial encounter
CPT/HCPCS: 70450; 71250; 72125; 73080; 74176; 90471; 90715; 99284

== ENCOUNTER 2025-05-18 12:30 | Outpatient (RCR) | payer MEDICARE, SELFPAY ==
[2025-02-01 15:30] VITALS: BP 120/80; PULSE 71; RESP 18; O2SAT 97
== END 2025-05-18 13:44 | disposition home or self-care (01) ==
LOC: ANHCPREHAB 12:30
PROVIDERS: PCP Internal Medicine; Visit Provider Internal Medicine Cardiovascular Disease
DX: Z95.5 Presence of coronary angioplasty implant and graft (principal)
CPT/HCPCS: 93798

== ENCOUNTER 2025-06-20 13:37 | Outpatient (CLI) | payer MEDICARE, SELFPAY ==
--- NOTE | ~2025-06-20 | XR_ITS ---
EXAMINATION: XR barium swallow DATE: 06/20/2025 14:29 INDICATION: Dysphagia with frequent pneumonia TECHNIQUE: The patient drank thin barium. Fluoroscopy of the hypopharynx and esophagus was attempted. Fluoroscopy exposure time was 0.2 minutes. The total number of images was 24. The dose-area product was 1.06 Gy-cm^2. COMPARISON: None. FINDINGS: Lateral imaging of the upper airway, mouth and proximal esophagus was performed prior to fu ll esophagram. Significant penetration and active aspiration was observed. Remainder of examination was aborted. IMPRESSION: Significant penetration and active aspiration for which modified barium swallow is recommended. Reviewed, dictated and finalized at location A.
--- OUTSIDE RECORDS SUMMARY | 2025-06-20 13:43 | XMS_ITS ---
Author Organization [facility] Address [address] [place], [place] [address] Care Team Providers Care Sales Representative Groceries Name Role Phone DANNY ROSE Unavailable [phone] Odin Alex Unavailable Unavailable Allergies No Known [...] MG Oral; Duration: 90 Days Active Ipratropium [place] 0.06 % Nasal; Duration: 14 Days Active Valsartan-hydroCHL OROthiazide 320-25 MG Oral; Duration: 90 Days Active terbinafine 250 MG Oral Tablet ORAL terbinafine 250 MG Oral TabletOriginal Medicationterbinafine 250 MG Oral Tablet *Reorder from [employer] for eRx and Interaction Alerts* 04/12/2021 Active Vital Signs Height 73.00 in 05/05/2025 Weight 225 lbs 05/05/2025 BMI 29.68 kg/m2 05/05/2025 Height-cm 185.42 cm 05/05/2025 Weight-kg 102.06 kg 05/05/2025 Encounters Encounter Location Date Provider Diagnosis [facility] [place] [address] [facility] [place], [place] [id number] 05/05/2025 DANNY ROSE 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 ; Pain in right foot M79.671 ; 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, bilateral legs I70.213 and Onychomycosis B35.1 Assessments Encounter Date Diagnosis (ICD Code) Assessment Notes Treatment Notes Treatment Clinical Notes Section Notes 05/05/2025 Non-pressure chronic ulcer of other part of right foot limited to breakdown of skin (ICD-10 - L97.511) 05/05/2025 Pain in right foot (ICD-10 - M79.671) 05/05/2025 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, bilateral [...] Up: 9 weeks, Reason: Provider Name:DANNY BELLO, 07/07/2025 11:40:00 AM, [address], [facility], [place], [place], [id number], Progress Notes * MESFIN CASTAÑEDA LDOB:1944 (80 yo M)Acc No.[id number]:05/05/2025 Patient: MESFIN HUGGINS Provider: Damian Rose DPM :1945 A ge:79 Y S ex:Male Date:05/05/2025 Address:[address] [place] [address] Subjective: * Chief Complaints: * 1 . [...] Medicationterbinafine 250 MG Oral Tablet *Reorder from [employer] for eRx and Interaction Alerts*, Taking Breztri Aerosphere 160-9-4.8 MCG/ACT Aerosol INHALE 2 PUFFS TWICE DAILY Inhalation , Taking Valsartan-hydroCHLOROthiazide 320-25 MG Tablet Oral , Taking Ipratropium [place] 0.06 % Solution Nasal , Taking Metoprolol [...] - M79.671 3 . A therosclerosis of chickal[place] arteries of extremities with intermittent claudication, bilateral [...] weeks * Billing Information: * Visit Code: 33094 Office Visit, Est Pt., Level 3. * Procedure Codes: * Electronic signature of DANNY ROSE DPM on 06/20/2025 at 01:42 PM CDT Sign off status: Pending * Provider: Damian Rose DPM Date: 0 05/05/2025 Generated for Satish benitez/Nicole/Ryan on: 0 06/20/2025 01:42 PM CDT History and Physical Notes * [...] ds bilaterally Temperature gradient: warm to cool bilmaycol huitron
--- OUTSIDE RECORDS SUMMARY | 2025-06-20 13:43 | XMS_ITS ---
Author Organization [facility] [place] ([address]) Address [address] [place] [address] Care Team Providers Care Activities Coordinator Name Role Phone Odin Alex MD Primary Care Provider Dr. Jens Crockett Unavailable [phone] Hugo Dempsey Unavailable Unavailable [facility], Provider Unavailable Unavailab le REASON FOR VISIT [facility] Conversion Encounter Medications Medication SIG (Take, [...] Active Encounters Encounter Location Date Provider Diagnosis [facility] [place] [address] 05/15/2024 Provider [facility]Z-Migration Plan Of Treatment No Information Progress Notes * Billy RUSS LDOB:1944 (80 yo M)Acc No.[id number]:05/15/2024 Patient: S Billy RAMIREZ L Provider: Ana Lilia Salas :1945 A ge:78 Y S ex:Male Date:05/15/2024 Address:[address] [place], [place] [id number] Pcp:Odin Alex MD Subjective: * Chief Complaints: * 1 . [facility] Conversion Encounter. * Medical History: * Medications: T aking Flonase Allergy Relief 50 MCG/ACT Suspension 1 spray(s) in each nostril once a day , Taking Centrum THERAPEUTIC MULTIPLE VITAMINS WITH MINERALS TABLET 1 TAB(S) ORALLY ONCE A DAY , Notes to Pharmacist: *Please review and pick correct strength-formulation from [employer] options. If intended option is not shown, discontinue and re-order from Quick Search*, Taking Melatonin 10 MG TABLET, EXTENDED RELEASE 1 TAB(S) ORALLY ONCE A DAY (AT BEDTIME) , Notes to Pharmacist: *Please review and pick correct strength-formulation from [employer] options. If intended option is not shown, [...] * Electronic signature of Yolie STINSON-Migration on 06/20/2025 at 01:42 PM CDT Sign off status: Pending * Provider: Ana Lilia gonzalez Migration Date: 05/15/2024 Generated for Satish benitez/Nicole/Ryan on: 06/20/2025 01:42 PM CDT
--- OUTSIDE RECORDS SUMMARY | 2025-06-20 13:43 | XMS_ITS | Patient Health Record ---
Author Organization [facility] Address [address] [place], [place] [address] Care Team Providers Care Cleat Feeder Name Role Phone DANNY SALAZAR Unavailable [phone] Odin Alex Unavailable Unavailable Allergies No Known Allergies Reason For Referral No Information Medications Medication SIG (Take, Route, Frequency, Duration) Notes Start Date End Date Status Pantoprazole Sodium 40 MG Oral; Duration: 90 Days Active Valsartan-hydroCHL OROthiazide 160-12.5 MG Oral; Duration: 90 Days Active Clopidogrel Bisulfate 75 MG Oral; Duration: 90 Days Active Breztri Aerosphere 160-9-4.8 MCG/ACT INHALE 2 PUFFS TWICE DAILY Inhalation; Duration: 90 Days Active terbinafine 250 MG Oral Tablet ORAL terbinafine 250 MG Oral TabletOriginal Medicationterbinafine 250 MG Oral Tablet *Reorder from [employer] [facility] for eRx and Interaction Alerts* 04/12/2021 Active Pravastatin Sodium 40 MG TAKE 1 TABLET BY MOUTH ONCE DAILY Oral; Duration: 90 Days Active Albuterol Sulfate HFA 108 (90 Base) MCG/ACT INHALE 2 PUFFS BY MOUTH EVERY 6 HOURS NEEDED Inhalation; Duration: 25 Days Active Montelukast Sodium 10 MG Oral; Duration: 90 Days Active Metoprolol Succinate ER 25 MG Oral; Duration: 90 Days Active Ipratropium [place] 0.06 % Nasal; Duration: 14 Days Active Valsartan-hydroCHL OROthiazide 320-25 MG Oral; Duration: 90 Days Active Immunizations Vaccine Route Administration Date Status Comme nts Influenza, high dose seasonal Unknown 10/30/2023 Admini stered Vital Signs Height-cm 185.42 cm 05/05/2025 Weight-kg 102.06 kg 05/05/2025 Height 73.00 in 05/05/2025 Weight 225 lbs 05/05/2025 BMI 29.68 kg/m2 05/05/2025 Encounters Encounter Location Date Provider Diagnosis [facility] [place] [address] [place] [id number] 05/05/2025 DANNY SALAZAR 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 ; Pain in right foot M79.671 ; Atherosclerosis of [place] arteries of extremities with intermittent claudication, bilateral legs I70.213 and Onychomycosis B35.1 [facility] [address] [place] [id number] 02/10/2025 DANNY SALAZAR 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 ; Pain in right foot M79.671 ; Atherosclerosis of [place]omb[place] shosh[place] arteries of extremities with intermittent claudication, bilateral legs I70.213 and Onychomycosis B35.1 [facility] [place] [address] [place] [id number] 02/24/2025 DANNY SALAZAR 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 ; Pain in right foot M79.671 ; Atherosclerosis of [place]omb[place] shosh[place] arteries of extremities with intermittent claudication, bilateral legs I70.213 and Onychomycosis B35.1 Assessments Encounter Date Diagnosis (ICD Code) Assessment Notes Treatment Notes Treatment Clinical Notes Section Notes 02/10/2025 Non-pressure chronic ulcer of other part of right foot limited to breakdown of skin (ICD-10 - L97.511) 02/10/2025 Pain in right foot (ICD-10 - M79.671) 02/24/2025 Non-pressure chronic ulcer of other part of right foot limited to breakdown of skin (ICD-10 - L97.511) 05/05/2025 Non-pressure chronic ulcer of other part of right foot limited to breakdown of skin (ICD-10 - L97.511) 05/05/2025 Pain in right foot (ICD-10 - M79.671) 02/10/2025 Atherosclerosis of [place]omb[place] shoshone arteries of extremities with intermittent claudication, bilateral legs (ICD-10 - I70.213) 02/24/2025 Pain in right foot (ICD-10 - M79.671) 02/10/2025 Onychomycosis (ICD-10 - B35.1) The ulcer was debrided down to bleeding tissue. A dry sterile dressing was applied. The patient was given instruction on home dressing and told to use antibiotic ointment on the wound. The patient was instructed to minimize pressure on the wound and to call the office immediately if the wound should start to worsen. 02/24/2025 Atherosclerosis of [place]omb[place] shoshone arteries of extremities with intermittent claudication, bilateral legs (ICD-10 - I70.213) 05/05/2025 Atherosclerosis of [place]omb[place] shoshone arteries of extremities with intermittent claudication, bilateral legs (ICD-10 - I70.213) 05/05/2025 Onychomycosis (ICD-10 - B35.1) All corns or calluses, as described in the note above, were cut and pared utilizing a #15 blade. 02/24/2025 Onychomycosis (ICD-10 - B35.1) All corns or calluses, as described in the note above, were cut and pared utilizing a #15 blade. 05/05/2025 Other Nails 1-5 Bilateral were debrided extensively with nail nippers and emery board, reducing length and girth to pink healthy tissue with any subungual debris and necrotic tissue removed, Preventing Falls: Care Instructions material was printed 02/24/2025 Other Nails 1-5 Bilateral were debrided extensively with nail nippers and emery board, reducing length and girth to pink healthy tissue with any subungual debris and necrotic tissue removed Plan Of Treatment Next Appt Details Provider Name:DANNY BELLO, 07/07/2025 11:40:00 AM, [address], [facility], [place], [place], [phone], Insurance Providers Payer Name Payer Address Payer Phone Subscriber Number Group Number Insured Name Patient Relationship to Insured Coverage Start Date Coverage End Date [employer] [address] [place] [address] [phone] [id number] MESFIN CASTAÑEDA Self - patient is the insured
--- OUTSIDE RECORDS SUMMARY | 2025-06-20 13:43 | XMS_ITS | Patient Health Record ---
Author Organization [facility] [place] ([address]) Address [address] [place] [address] Care Team Providers Care Guest House Manager Name Role Phone Odin Alex MD Primary Care Provider Dr. Jens Crockett Unavailable [phone] Hugo Dempsey Unavailable Allergies No Known Allergies Reason For [...] review and pick correct strength-formulatio n from Handle options. If intended option is not shown, discontinue and re-order from Quick Search* Active Centrum THERAPEUTIC MULTIPLE VITAMINS WITH MINERALS 1 TAB(S) ORALLY ONCE A DAY *Please review and pick correct strength-formulatio n from [employer] options. If intended option is not shown, [...] Polyneuropathy due to type 2 diabetes mellitus (912722188) Type 2 diabetes mellitus with diabetic polyneuropathy (E11.42) Active confirmed Problem Chronic migraine without aura, non-refractory (disorder) (034064130981140) Migraine without aura, not intractable, without status migrainosus (G43.009) Active confirmed Problem Migraine with aura (8500856) Migraine with aura, not intractable, without status migrainosus (G43.109) Active confirmed Problem Chronic migraine without aura, non-intractable (509946485174873) Chronic migraine without aura, not intractable, without status migrainosus (G43.709) Active confirmed Problem Carpal tunnel syndrome (30980642) Carpal tunnel syndrome, bilateral upper limbs (G56.03) Active confirmed Plan Of Treatment No Information Insurance Providers Payer Name Payer Address Payer Phone Subscriber Number Group Number Insured Name Patient Relationship to Insured Coverage Start Date Coverage End Date [employer] Medicare [address] [place] [address] [id number] Billy Russ Self - patient is the insured 01/01/202 4 Medical (General) History Medical History History ICD Code HLD HTN PAFib COPD CASTRO Lumbar DDD OA DM2 Surgical History Surgery Date(Month/Year) S/p lumbar FLAVIO S/p cataracts S/p pilonidal cyst removal S/p cardiac ablation
--- OUTSIDE RECORDS SUMMARY | 2025-06-20 13:43 | XMS_ITS ---
Author Name Sanchez RN, DIRECTOR NURSING SERVICE, [facility] Whitten Address [address] [place] [address] Phone [phone] Organization [facility] Care Team Providers Care Gas Distribution And Emergency Clerk Name Role Phone Shameka Bradford Unavailable [phone] Reason for Referral Not Available Allergies, adverse reactions, alerts No known allergies History of medication use Medication Class Instructions Start Date End Date Oxygen 2 liters via nc prn No Data Available 2024-12-03 0 No Data Available Problem List Problem Status Onset Date Resolved Date Synopsis CHF (congestive heart failure) Active 2025-01-03 N/A N/A Chronic respiratory failure with hypoxia Active 2-03 N/A N/A COPD (chronic obstructive pulmonary disease) Active 25-01-03 N/A N/A CASTRO (obstructive sleep apnea) Active 2025-01-03 N/A N/A Pulmonary nodule Active 2025-01-03 N/A N/A Nicotine dependence Active 2025-01-03 N/A N/A AAA (abdominal aortic aneurysm) Active 2025-01-03 N/A N/A Spinal stenosis of lumbar region Active 2025-01-03 N/A N/A GERD (gastroesophageal reflux disease) Active N/A N/A Essential hypertension Active 2025-01-03 N/A N/ A Hyperlipidemia Active 2025-01-03 N/A N/A Atrial fibrillation, permanent Active 2025-01-03 N/A N/A Obesity Active 2025-01-03 N/A N/A Anxiety Active 2025-01-03 N/A N/A Encounters Encounters Type Facility Date of Service Diagnosis/Co mplaint [facility] 7 [facility] Dis[facility] [place], 12/30/2024 Encntr for f/u exam aft trtm t for cond oth than malig neoplmAcute respiratory failure with hypoxia [facility] 7 [facility] [place], [place] 12/30/2024 Encntr for f/u exam aft trtm t for cond oth than malig neoplmAcute respiratory failure with hypoxia Trans[facility] 7 Day Dis[facility] [place] 12/30/2024 Encntr for f/u exam aft trtm t for cond oth than malig neoplmAcute respiratory failure with hypoxia Telephone E/M Service; 11-20 min of Medical Discussion (Audio Only) [place], 01/03/2025 Acute respiratory failure with hypoxia Telephone E/M Service; 11-20 min of Medical Discussion (Audio Only) [place], 01/03/2025 Acute respiratory failure with hypoxia Telephone E/M Service; 11-20 min of Medical Discussion (Audio Only) [place], 01/03/2025 Acute respiratory failure with hypoxia Telephone E/M Service; 11-20 min of Medical Discussion (Audio Only) [place], 01/03/2025 Acute respiratory failure with hypoxia Vital Signs Date of Collection Vitals 2024-12-30 12:11:34 Pain Scale - 7.0 {sc ore} 2025-01-03 09:21:47 BP Diastolic - 54.0 mm[Hg]BP Systolic - 134.0 mm[Hg]O2 % BldC Oximetry - 93.0 % Social History Sex Male History of Procedures Procedures Service Procedure code Service date Servicing provider Phone# Transitional [facility] 7 Day Disch 71506 2024-12-30 No Data Available No Data Avail able Medrec Completed within 30 Days of Discharge 2024-12-30 No Data Available No Data Availa ble Pain Assessment - Pain Documented 1125F 2024-12-30 No Data Available No Data Availa ble Telephone E/M Service; 11-20 min of Medical Discussion (Audio Only) 17786 2025-01-03 No Data Available No Data Availa ble Medrec Completed within 30 Days of Discharge 1111F 2025-01-03 No Data Available No Data Availa ble Systolic BP 130-139 MM[facility] (Controlled) 3075F 2025-01-03 No Data Available No Data Avai lable Diastolic BP Less Than 80 [facility] (Controlled) 3078F 2025-01-03 No Data Available No Data Availa ble Functional Status No Information Mental Status No Information Assessments Date of Service Assessments 2024-12-30 12:11:34 ACUTE RESPIRATORY FA ILURE WITH HYPOXIA 2025-01-03 09:21:47 Acute respiratory fa ilure with hypoxia[additional dx/concerns discussed] Plan of Care Date of Service Plans 2024-12-30 12:11:34 Pt went to the [facility] due to breathing issues. Was discharged home. Advised to f/u with PCP. Has PCP visit on 01/11/25 and is waiting to get scheduled with a new Pulmonary doctor.Pt Agreed to a post discharge visit with a [facility] Provider: Appointment scheduled with Shameka Bradford RN, DIRECTOR NURSING SERVICE on Friday01/03/2025 at 4:30 pm (EST) - 3:30 pm (RAILROAD WHEELS AND AXLES INSPECTOR).RN reinforced availability of UC provider / for 30 days after discharge and encouraged CB w/ any concerns or if pt is worse in any way. Advised pt to call to reach our staff.Needs/concerns for [facility] provider to address during PD visit - [...] from hospital- encouraged pt/ to call Gigi to see if they can facilitate that [...] it Date: 12/24/24Discharge Date: 12/27/24Hospital name: [facility] diagnosis: ACUTE RESPIRATORY FAILURE WITH HYPOXIA [...] [facility], and no questions or concerns regarding these.
== END 2025-06-20 13:38 | disposition home or self-care (01) ==
PROVIDERS: PCP Internal Medicine; Visit Provider Otolaryngology
DX: H81.10 Benign paroxysmal vertigo, unspecified ear (principal); K22.5 Diverticulum of esophagus, acquired; R13.10 Dysphagia, unspecified
CPT/HCPCS: 74220

== ENCOUNTER 2025-07-18 11:25 | Outpatient (CLI) | payer MEDICARE, SELFPAY ==
--- NOTE | ~2025-07-18 | MR_ITS ---
MRI of the lumbar spine Clinical History: Radiculopathy Technique: Axial T2-weighted images, and sagittal T1-weighted, T2-weighted, and T2 fat-sat images wer e acquired. Findings: 3 mm retrolisthesis of L2 over L3, and of L3 over L4. No acute fracture. No suspicious bone marrow signal abnormality. At L1-L2, there is moderate degenerative disc narrowing. There is mild disc bulge with moderate to se alicia facet arthropathy. There is minimal central canal stenosis. There is moderate to severe right ne ural foraminal narrowing. There is minimal left neural foraminal narrowing. At L2-L3, there is moderate degenerative distended. Disc bulge and severe facet arthropathy result in severe spinal canal stenosis/thecal sac compression. There is moderate to severe left neural foramin al narrowing. Right neural foramen preserved. At L3-L4, there is degenerative distended. There is diffuse disc bulge with superimposed central disc protrusion. There is moderate to advanced facet arthropathy. There is severe spinal canal stenosis/t hecal sac compression. There is moderate bilateral neural foraminal narrowing. At L4-L5, there is diffuse disc bulge with moderate facet arthropathy. No central canal stenosis. The re is severe left neural foraminal narrowing, and moderate to severe right neural foraminal narrowing . At L5-S1, there is disc bulge with moderate facet arthropathy. No central canal stenosis. There is se alicia bilateral neural foraminal narrowing. Paravertebral soft tissues are unremarkable. Impression: Severe degenerative spondylitic changes throughout the lumbar spine, as detailed above. 3 mm retrolisthesis of L2 over L3, and of L3 over L4. Reviewed, dictated and finalized at location . Impression: Severe degenerative spondylitic changes throughout the lumbar spine, as detaile d above. 3 mm retrolisthesis of L2 over L3, and of L3 over L4.
== END 2025-07-18 11:26 | disposition home or self-care (01) ==
LOC: GOSHIMG 11:26
PROVIDERS: PCP Nurse Practitioner Family; Visit Provider Nurse Practitioner Family
DX: M47.26 Other spondylosis with radiculopathy, lumbar region (principal)
CPT/HCPCS: 72148

== ENCOUNTER 2025-07-28 09:39 | Outpatient (CLI) | payer MEDICARE, SELFPAY ==
--- OUTSIDE RECORDS SUMMARY | 2024-05-15 16:30 | XMS_ITS ---
Author Organization [facility] [place] ([phone]) Address [address] [place] [address] Care Team Providers Care Spiral Gear Generator Name Role Phone Odin Alex MD Primary Care Provider Dr. Jens Crockett Unavailable [phone] uHgo Dempsey Unavailable Unavailable ZZ-Migration, Provider Unavailable Unavailab le REASON FOR VISIT [facility] To [facility] Conversion Encounter Medications Medication SIG (Take, [...] Active Encounters Encounter Location Date Provider Diagnosis [facility] [place] [address] 05/15/2024 Provider ZZ-Migration Plan Of Treatment No Information Progress Notes * Billy RUSS LDOB:1944 (80 yo M)Acc No.[id number]:05/15/2024 Patient: S Billy RAMIREZ L Provider: Ana Lilia Salas :1945 A ge:78 Y S ex:Male Date:05/15/2024 Address:[address] [place], [place] [id number] Pcp:Odin Alex MD Subjective: * Chief Complaints: * 1 . Multum To Medispan Conversion Encounter. * Medical History: * Medications: T aking Flonase Allergy Relief 50 MCG/ACT Suspension 1 spray(s) in each nostril once a day , Taking Centrum THERAPEUTIC MULTIPLE VITAMINS WITH MINERALS TABLET 1 TAB(S) ORALLY ONCE A DAY , Notes to Pharmacist: *Please review and pick correct strength-formulation from SaveFans!span options. If intended option is not shown, discontinue and re-order from Quick Search*, Taking Melatonin 10 MG TABLET, EXTENDED RELEASE 1 TAB(S) ORALLY ONCE A DAY (AT BEDTIME) , Notes to Pharmacist: *Please review and pick correct strength-formulation from [employer]Fans!span options. If intended option is not shown, [...] * Electronic signature of Yolie STINSON-Migration on 07/28/2025 at 09:51 AM CDT Sign off status: Pending * Provider: Ana Lilia gonzalez Migration Date: 05/15/2024 Generated for Satish benitez/Nicole/Ryan on: 07/28/2025 09:51 AM CDT
--- OUTSIDE RECORDS SUMMARY | 2025-05-05 06:20 | XMS_ITS ---
Author Organization [facility] Address [address] [place], [place] [id number] Care Team Providers Care Harpsichord Maker Name Role Phone DANNY ROSE Unavailable [phone] Odin Alex Unavailable Unavailable Allergies No Known Allergies REASON FOR VISIT *General care Medications Medication SIG (Take, Route, Frequency, Duration) Notes Start Date End Date Status Pantoprazole Sodium 40 MG Oral; Duration: 90 Days Active Valsartan-hydroCHL OROthiazide 160-12.5 MG Oral; Duration: 90 Days Active Clopidogrel Bisulfate 75 MG Oral; Duration: 90 Days Active Pravastatin Sodium 40 MG TAKE 1 TABLET BY MOUTH ONCE DAILY Oral; Duration: 90 Days Active Albuterol Sulfate HFA 108 (90 Base) MCG/ACT INHALE 2 PUFFS BY MOUTH EVERY 6 HOURS NEEDED Inhalation; Duration: 25 Days Active Breztri Aerosphere 160-9-4.8 MCG/ACT INHALE 2 PUFFS TWICE DAILY Inhalation; Duration: 90 Days Active Montelukast Sodium 10 MG Oral; Duration: 90 Days Active Metoprolol Succinate ER 25 MG Oral; Duration: 90 Days Active Ipratropium Howard 0.06 % Nasal; Duration: 14 Days Active Valsartan-hydroCHL OROthiazide 320-25 MG Oral; Duration: 90 Days Active terbinafine 250 MG Oral Tablet ORAL terbinafine 250 MG Oral TabletOriginal Medicationterbinafine 250 MG Oral Tablet *Reorder from [facility] for eRx and Interaction Alerts* 04/12/2021 Active Vital Signs Height 73.00 in 05/05/2025 Weight 225 lbs 05/05/2025 BMI 29.68 kg/m2 05/05/2025 Height-cm 185.42 cm 05/05/2025 Weight-kg 102.06 kg 05/05/2025 Encounters Encounter Location Date Provider Diagnosis [facility] [place] [address] [facility] [place], [place] [id number] 05/05/2025 DANNY ROSE 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 ; Pain in right foot M79.671 ; 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 05/05/2025 Other Nails 1-5 Bilateral were debrided extensively with nail nippers and emery board, reducing length and girth to pink healthy tissue with any subungual debris and necrotic tissue removed, Preventing Falls: Care Instructions material was printed Plan Of Treatment Treatment Notes Assessment Notes Onychomycosis All corns or calluse s, as described in the note above, were cut and pared utilizing a #15 blade. Other Nails 1-5 Bilateral were debrided extensively with nail nippers and emery board, reducing length and girth to pink healthy tissue with any subungual debris and necrotic tissue removed, Preventing Falls: Care Instructions material was printed Next Appt Details Follow Up: 9 weeks, Reason: Provider Name:DANNY BELLO, 09/08/2025 11:20:00 AM, [address], [facility], [place], [place], [id number], Progress Notes * MESFIN CASTAÑEDA LDOB:1944 (80 yo M)Acc No.[id number]:05/05/2025 Patient: MESFIN HUGGINS Provider: Damian Rose DPM :1945 A ge:79 Y S ex:Male Date:05/05/2025 Address:[address] [place] [address] Subjective: * Chief Complaints: * 1 . *General care. * HPI: H PI: General care P atient presents to the office for at risk foot care. Patient states that their nails are thickened, elongated and painful. Patient states that it is aggravated by shoe gear. Onset is gradual. Patient denies being diabetic. Patient is taking prescription blood thinners. Date last seen by Dr. Alex was 01/2025. Initials sea. * Medical History: M edical History Verified. * Medications: T aking terbinafine 250 MG Oral Tablet ORAL , Notes to Pharmacist: terbinafine 250 MG Oral TabletOriginal Medicationterbinafine 250 MG Oral Tablet *Reorder from [facility] for eRx and Interaction Alerts*, Taking Breztri Aerosphere 160-9-4.8 MCG/ACT Aerosol INHALE 2 PUFFS TWICE DAILY Inhalation , Taking Valsartan-hydroCHLOROthiazide 320-25 MG Tablet Oral , Taking Ipratropium Howard 0.06 % Solution Nasal , Taking Metoprolol Succinate ER 25 MG Tablet Extended Release 24 Hour Oral , Taking Montelukast Sodium 10 MG Tablet Oral , Taking Clopidogrel Bisulfate 75 MG Tablet Oral , Taking Valsartan-hydroCHLOROthiazide 160-12.5 MG Tablet Oral , Taking Pantoprazole Sodium 40 MG Tablet Delayed Release Oral , Taking Albuterol Sulfate HFA 108 (90 Base) MCG/ACT Aerosol Solution INHALE 2 PUFFS BY MOUTH EVERY 6 HOURS NEEDED Inhalation , Taking Pravastatin Sodium 40 MG Tablet TAKE 1 TABLET BY MOUTH ONCE DAILY Oral , Medication List reviewed and reconciled with the patient * Allergies: N .K.D.A. Objective: * Vitals: W t: 225 lbs, Wt-k.06 kg, Ht: 73.00 in, Ht-cm: 185.42 cm, BMI: 29.68 Index, Body Surface Area: 2.29. * Examination: C onstitutional: Constitutional T he patient is awake, alert, well developed, well groomed and well nourished. . D ermatologic: Skin findings: S kin is thin, atrophic and lacking pedal hair. . Nail pathology: N ails 1-5 bilateral are elongated, thick, discolored, and dystrophic with subungual debris. They are painful to palpation. Subungual hematoma noted under right 5th nail. No SOI. Ulcer: T here is no evidence of ulceration noted at this time . Hyperkeratotic Skin Lesion d istal aspect of the 3rd digit right . M usculoskeletal: Muscle Strength M uscle strength is 5/5 in regards to dorsiflexion, plantarflexion, inversion, and eversion in bilateral lower extremities. . Foot Structure T he foot structure is noted to be normal bilaterally . Pain on palpation T here is no pain on palpation . Gait T here is normal gait noted . N eurologic: Muscle power: 5 /5 bilaterally . Gross sensation G ross sensation is intact to light touch. . V ascular: Dorsalis pedis pulse: 0 /4 bilateral . Posterior tibial pulse: 0 /4 bilaterally . Capillary refill: g reater than 3 seconds bilaterally .? Temperature gradient: w arm to cool bilaterally . ? Assessment: * Assessment: 1. 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 P ain in right foot - M79.671 3 . A therosclerosis of hamilton arteries of extremities with intermittent claudication, bilateral legs - I70.213? 4. O nychomycosis - B35.1 Plan: * Treatment: 2. O thers Notes: Nails 1-5 Bilateral were debrided extensively with nail nippers and emery board, reducing length and girth to pink healthy tissue with any subungual debris and necrotic tissue removed, Preventing Falls: Care Instructions material was printed * Preventive Medicine: Screenings: F all risk screening Fall Risk Assessment: T wo or more falls with injury in the past year Plan of Care: D ocumented Type of fall plan of care: B alance, strength and gait training or instruction provided Have you had two or more falls in the past year? Y es Have you had any falls with injury in the past year? Y es Have you had any falls with injury in the past year? Y es * Follow Up: 9 weeks * Billing Information: * Visit Code: 04375 Office Visit, Est Pt., Level 3. * Procedure Codes: * Electronic signature of DANNY STEFANY ROSE on 07/28/2025 at 09:52 AM CDT Sign off status: Pending * Provider: Damian Rose DPM Date: 0 05/05/2025 Generated for Satish benitez/Nicole/Ryan on: 0 07/28/2025 09:52 AM CDT History and Physical Notes * HPI (History of Present Illness) Category Sub-Category Detail Notes Category Not es HPI General care Patient presents to the office for at risk foot care. Patient states that their nails are thickened, elongated and painful. Patient states that it is aggravated by shoe gear. Onset is gradual. Patient denies being diabetic. Patient is taking prescription blood thinners. Date last seen by Dr. Alex was 01/2025. Initials sea Examination Category Sub-Category Detail Notes Category Not es Constitutional Constitutional The patient is a wake, alert, well developed, well groomed and well nourished. Dermatologic Skin findings: Skin is thin, at rophic and lacking pedal hair. Nail pathology: Nails 1-5 bilateral are elongated, thick, discolored, and dystrophic with subungual debris. They are painful to palpation. Subungual hematoma noted under right 5th nail. No SOI Ulcer: There is no evidence of ulceration noted at this time Hyperkeratotic Skin Lesion distal aspect of the 3rd digit right Musculoskeletal Muscle Strength Muscle strength is 5/5 in regards to dorsiflexion, plantarflexion, inversion, and eversion in bilateral lower extremities. Pain on palpation There is no pain on palpation Foot Structure The foot structure i s noted to be normal bilaterally Gait There is normal gait noted Neurologic Muscle power: 5/5 bilaterally Gross sensation Gross sensation is i ntact to light touch. Vascular Dorsalis pedis pulse: 0/4 bilateral Posterior tibial pulse: 0/4 bilaterally Capillary refill: greater than 3 secon ds bilaterally Temperature gradient: warm to cool bilat elana
--- OUTSIDE RECORDS SUMMARY | 2025-07-07 06:00 | XMS_ITS ---
Author Organization [facility] Address [address] [place], [place] [id number] Care Team Providers Care Client Development Consultant Name Role Phone DANNY ROSE Unavailable [phone] Odin Alex Unavailable Unavailable REASON FOR VISIT [...] MG Oral; Duration: 90 Days Active Ipratropium [place] 0.06 % Nasal; Duration: 14 Days Active terbinafine 250 MG Oral Tablet ORAL terbinafine 250 MG Oral TabletOriginal Medicationterbinafine 250 MG Oral Tablet *Reorder from [employer] for eRx and Interaction Alerts* 04/12/2021 Active Sujataquis Active Encounters Encounter Location Date Provider Diagnosis [facility] [place] [address] [id number] 07/07/2025 DANNY ROSE 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 ; Pain in right foot M79.671 ; Atherosclerosis of [place] arteries of extremities with intermittent claudication, bilateral legs I70.213 and Onychomycosis B35.1 Assessments Encounter Date Diagnosis (ICD Code) Assessment Notes Treatment Notes Treatment Clinical Notes Section Notes 07/07/2025 Non-pressure chronic ulcer of other part of right foot limited to breakdown of skin (ICD-10 - L97.511) 07/07/2025 Pain in right foot (ICD-10 - M79.671) 07/07/2025 Atherosclerosis of [place] arteries of extremities with intermittent claudication, bilateral [...] 09/08/2025 11:20:00 AM, [address], [facility], [place], [place], [id number], Progress Notes * MESFIN CASTAÑEDA LDOB:1944 (80 yo M)Acc No.[id number]:07/07/2025 Patient: MESFIN HUGGINS Provider: E desean Rose DPM :1945 A ge:80 Y S ex:Male Date:07/07/2025 Address:[address] [place] [address] [place] [id number] Subjective: * Chief Complaints: * 1 . [...] Medicationterbinafine 250 MG Oral Tablet *[facility] from [facility] for eRx and Interaction Alerts*, Taking Breztri Aerosphere 160-9-4.8 MCG/ACT Aerosol INHALE 2 PUFFS TWICE DAILY Inhalation , Taking Valsartan-hydroCHLOROthiazide 320-25 MG Tablet Oral , Taking Ipratropium Dillard 0.06 % Solution Nasal , Taking Metoprolol [...] - M79.671 3 . A therosclerosis of [place] arteries of extremities with intermittent claudication, bilateral [...] weeks * Billing Information: * Visit Code: 34155 Office Visit, Est Pt., Level 3. * Procedure Codes: * Electronic signature of DANNY ROSE DPM on 07/28/2025 at 09:51 AM CDT Sign off status: Pending * Provider: Damian Rose DPM Date: 07/07/2025 Generated for Satish benitez/Nicole/Yahiritting on: 0 07/28/2025 09:51 AM CDT History and Physical Notes * [...]
--- NOTE | ~2025-07-28 | US_ITS ---
US renal BI 07/28/2025 11:00 Procedure: Realtime transabdominal ultrasound of the kidneys and bladder. Indication: Hypertensive chronic renal disease Comparison: No prior studies for comparison. Findings: Renal echotexture is normal bilaterally without hydronephrosis, contour deforming mass or renal calculus. There is a right renal cyst measuring 5.9 cm. No solid masses. The right kidney measures 11.1 cm and left kidney measures 10.6 cm. There is a bladder diverticulum. Mildly prominent prostate gland. Impression: 1: Simple cyst of the right ovary measuring 5.9 cm. 2: Bladder diverticulum. 3: Mildly enlarged prostate gland. Reviewed, dictated and finalized at location O. Impression: 1: Simple cyst of the right ovary measuring 5.9 cm. 2: Bladder diverticulum. 3: Mildly enlarged prostate gland.
--- OUTSIDE RECORDS SUMMARY | 2025-07-28 09:51 | XMS_ITS ---
Author Name Sanchez RN, [facility], [facility] Address [address] [place] [address] Phone [phone] Organization [facility] Care Team Providers Care Ferruler Name Role Phone Shameka Bradford Unavailable [phone] Reason for Referral Not Available Allergies, adverse [...] mplaint [facility] Day Dis[facility] [place], [place], 12/30/2024 Encntr for f/u exam aft trtm t for cond oth than malig neoplmAcute respiratory failure with hypoxia [facility] 7 Day Dis[facility] [place], [place] 12/30/2024 Encntr for f/u exam aft trtm t for cond oth than malig neoplmAcute respiratory failure with hypoxia [facility] 7 Day Disch [place], [place] 12/30/2024 Encntr for f/u exam aft trtm t for cond oth than malig neoplmAcute respiratory failure with hypoxia Telephone E/M Service; 11-20 min of Medical Discussion (Audio Only) [place], [place], 01/03/2025 Acute respiratory failure with hypoxia Telephone E/M Service; 11-20 min of Medical Discussion (Audio Only) [place], 01/03/2025 Acute respiratory failure with hypoxia Telephone E/M Service; 11-20 min of Medical Discussion (Audio Only) [place], 01/03/2025 Acute respiratory failure with hypoxia Telephone E/M Service; 11-20 min of Medical Discussion (Audio Only) [place], 01/03/2025 Acute respiratory failure with hypoxia Vital Signs Date of Collection Vitals 2024-12-30 12:11:34 Pain Scale - 7.0 {sc ore} 2025-01-03 09:21:47 BP Diastolic - 54.0 mm[Hg]BP Systolic - 134.0 mm[Hg]O2 % BldC Oximetry - 93.0 % Social History Sex Male History of Procedures Procedures Service Procedure code Service date Servicing provider Phone# [facility] 7 Day Disch [id number] 2024-12-30 No Data Available No Data Avail able Medrec Completed within 30 Days of Discharge 2024-12-30 No Data Available No Data Availa ble Pain Assessment - Pain Documented [id number] 2024-12-30 No Data Available No Data Availa ble Telephone E/M Service; 11-20 min of Medical Discussion (Audio Only) [id number] 2025-01-03 No Data Available No Data Availa [...] Plans 2024-12-30 12:11:34 Pt went to the [facility] due to breathing issues. Was discharged home. Advised to f/u with PCP. Has PCP visit on 01/11/25 and is waiting to get scheduled with a new Pulmonary doctor.Pt Agreed to a post discharge visit with a [facility] Provider: Appointment scheduled with Shameka Bradford RN, [facility] on Friday01/03/2025 at 4:30 pm (EST) - 3:30 pm (DIRECTORY OPERATOR).RN reinforced availability of UC provider / for 30 days after discharge and encouraged CB w/ any concerns or if pt is worse in any way. Advised pt to call to reach our staff.Needs/concerns for [facility] provider to address during PD visit - [...] IPAdm it Date: 12/24/24Discharge Date: 12/27/24[facility] name[facility] diagnosis: ACUTE RESPIRATORY FAILURE WITH HYPOXIA 2025-01-03 [...] [facility] [place] [facility], and no questions or concerns regarding these.
--- OUTSIDE RECORDS SUMMARY | 2025-07-28 09:52 | XMS_ITS | Clinical Summary ---
Author Organization [facility] Address [address] [facility] [place] [address] Care Team Providers Care Fairmont Gold Attendant Name Role Phone Odin Alex MD Primary Care Provider [phone] Leo Wang MD Unavailable [phone] Mckenzie Gilliam MD Unavailable [phone] Source Comments [facility],non-owned Affiliates and Associated Physician Practices is amultiple site organization consisting of ambulatory clinics and hospital sitesin [place], [place], [place] and [place]. This disclosure is being madepursuant to the Care Everywhere program and may not contain all information available regarding this patient. Last updated 18.[facility] Allergies No known active allergies Medications * Be aware that medications may not be up to date on this document. Alwaysverify current medications with the patient. pantoprazole EC (PROTONIX) 40 MG tablet Take 1 (one) tablet by mouth once daily 1 019 Active pravastatin (PRAVACHOL) 40 MG tablet Take 1 (one) tablet by mouth at bedtime Active metoprolol succinate XL 24hr (TOPROL XL) 100 MG tablet Take 25 mg by mouth once daily 020 Active diphenhydrAMIN E (BENADRYL) 25 MG capsule Take 1 (one) capsule by mouth every 6 hours as needed Active Melatonin 10 MG Take 10 (ten) mg by mouth every evening Active multivitamins (ONE A DAY) capsule Take 1 (one) capsule by mouth once daily Active valsartan-hydr oCHLOROthiazid e (Diovan HCT) 320-25 MG tablet Take 1 (one) tablet by mouth once daily Active acetaminophen (Tylenol) 500 MG tablet Take 1 (one) tablet by mouth 2 times daily Maximum allowable Acetaminophen amount = 4 Grams (4000 mg) / 24 hours. Active loratadine (Claritin) 10 MG tablet Take 1 (one) tablet by mouth once daily Active fluticasone propionate (Flonase) 50 MCG/ACT nasal spray Lima 2 (two) sprays into each nostril once daily as needed Active zolpidem (Ambien) 5 MG tablet Take 1 tablet my mouth at night as directed, may repeat x 1 if needed. 2 tablet Active Additional Information Patient not taking.Reported on 12/13/2024 escitalopram (Lexapro) 10 MG tablet Active gabapentin (Neurontin) 100 MG capsule TAKE 1 CAPSULE BY MOUTH ONCE DAILY FOR 3 DAYS THEN TWICE DAILY FOR 3 DAYS THEN THREE TIMES DAILY Active imiquimod (Aldara) 5 % cream APPLY CREAM TOPICALLY TO FOREHEAD AT NIGHT AND THEN WASH OFF IN THE MORNING FOR 2 WEEKS ON, 2 WEEKS OFF, THEN 2 WEEKS AGAIN Active ALPRAZolam (Xanax) 0.25 MG tablet Take 1 (one) tablet by mouth at bedtime Active naltrexone (Revia) 1.5 MG capsule Take 1 (one) capsule by mouth once daily Active furosemide (Lasix) 40 MG tablet Take 1 (one) tablet by mouth once daily Active Atrovent HFA 17 MCG/ACT inhaler Inhale 2 (two) puffs by mouth 4 times daily Active traZODone (Desyrel) 100 MG tablet Take 1 (one) tablet by mouth at bedtime Active aspirin (Aspirin) 81 MG chew tablet Take 1 (one) tablet by mouth once daily 024 2024 Active Plavix 75 MG tablet Take 1 (one) tablet by mouth once Active montelukast (Singulair) 10 MG tablet Take 1 tablet by mouth once daily 90 tablet 2 025 Active albuterol HFA (Proventil; Ventolin; Proair) 108 (90 Base) MCG/ACT inhaler INHALE 2 PUFFS BY MOUTH EVERY 6 HOURS NEEDED 18 g 5 025 Active budeson-glycop yrrol-formoter ol (Breztri Aerosphere) 160-9-4.8 MCG/ACT inhalerIndicat ions:Chronic obstructive pulmonary disease, unspecified COPD type (HCC) Inhale 2 puffs by mouth twice daily 33 g 1 025 2024 Discontinued budeson-glycop yrrol-formoter ol (Breztri Aerosphere) 160-9-4.8 MCG/ACT inhalerIndicat ions:Chronic obstructive pulmonary disease, unspecified COPD type (HCC) INHALE 2 PUFFS TWICE DAILY 10.7 g 1 025 2024 Discontinued(C linical Decision) Active Problems Problem Noted Date Diagnosed Date [...] Eliquis 5 mg twice daily.He has a FZP0EI1-SAHe score of 2, therefore it is recommended that he remain anticoagulated for thromboprophylaxis. 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 As long as they remain on this medication, an ECG will be performed every 6 months for monitoring. S/P ablation of atrial fibrillation 06/28/2017 Encounters Date Type Department Care Team Description 07/21/2025 Travel 07/21/2025 Refill [facility] - Pulmonology [address] [facility] [address] [address] [place] [address] Leo Wang MD Refill Request 07/08/2025 Telephone [facility] - ENT [address] [facility] [address] [place] [address] Louisa Casas RN Appointment (New pt Tony) 06/02/2025 Patient Outreach [facility] - Care Coordination [address] [place] [address] Ольга Patel MA Outreach Preventive Care 06/01/2025 Patient Outreach [facility] - Care Coordination [address] [place] [address] Ольга Patel MA Outreach Preventive Care from Last 3 Months Immunizations Immunization Administration Dates Next Due INFLUENZA VACCINE, TRIV. (AF LURIA, FLUZONE TRIVALENT; 6MO+) (IIV3) 10/21/2014,10/21/2014,10/08/2013,2012 Covid [place] primary monoval ent 12+ yr 0.3mL Purple cap 03/18/2022,08/30/2021,02/25/2021,2020 FLU VACCINE QUAD IIV4 SPLIT 0.25 ML IM 08/30/2021,10/20/2015,10/20/2015 INFLUENZA VACCINE 11/04/2022,08/30/2021,11/07/20 INFLUENZA VACCINE, HIGH-DOSE , QUADR. (FLUZONE HIGH-DOSE [...] Assigned at Male 05/31/2021 11:18 AM CDT Legal Sex Male 10:36 AM COMMUNICATIONS TECHNICIAN Gender Identity Male 05/31/2021 11:18 AM CDT Sexual Orientation Straight 05/31/2021 11 :18 AM CDT Last Filed Vital Signs Vital Sign Reading Time Taken Comments Blood Pressure 126/80 12/13/2024 3:36 PM COMMUNICATIONS TECHNICIAN Pulse 82 12/13/2024 3:36 PM COMMUNICATIONS TECHNICIAN Temperature 36.3 C (97.4 F) 12/13/2024 3:36 PM COMMUNICATIONS TECHNICIAN Respiratory Rate 20 12/13/2024 3:36 PM COMMUNICATIONS TECHNICIAN Oxygen Saturation 96% 12/13/2024 3:36 PM COMMUNICATIONS TECHNICIAN room air Inhaled Oxygen Concentration - - Weight 119.3 kg (263 lb) 12/13/2024 3:36 PM COMMUNICATIONS TECHNICIAN Height 182.9 cm (6') 12/13/2024 3:36 PM COMMUNICATIONS TECHNICIAN Body Mass Index 35.67 12/13/2024 3:36 PM COMMUNICATIONS TECHNICIAN Plan of Treatment Upcoming Encounters Date Type Department Care Team (Late st Contact Info) Description 08/15/2025 11:00 AM CDT Appointment [facility] DI[facility]NOSTIC RAD [address] [place] [address] Johnson Jimenez MD [address] [facility] [address] DEPT [place] [address] 09/27/2025 2:30 PM CDT Office Visit [facility] - ENT [address] [place] [phone] Johnson Jimenez MD [address] [facility] [address] [place] [address] Health Maintenance Due Date Last Done Comments DTAP/TDAP/TD VACCINES (1 - Tdap) 1965 ZOSTER VACCINE (1 of 2) 1996 Respiratory Syncytial Virus (RSV) Vaccine Pt: or over 60 yrs (1 - 1-dose 75+ series) 2021 COVID-19 VACCINE ( season) 2024 03/18/2022, 08/30/2021, 02/25/2021, Additional history exists DEPRESSION SCREENING 12/01/2024 08/24/2024 MEDICARE AWV CALENDAR YEAR 2024 INFLUENZA VACCINE (#1) 2025 , 10/30/2023, 08/26/2023, Additional history exists PNEUMOCOCCAL VACCINE 50+ Completed 023, 01/03/2015, 01/03/2015, Additional history exists HEPATITIS B VACCINE Aged Out No longe r eligible based on patient's age to complete this topic HIB VACCINE Aged Out No longer eligi ble based on patient's age to complete this topic HPV VACCINE Aged Out No longer eligi ble based on patient's age to complete this topic MENINGOCOCCAL (Group B) VACCINE SHARED DECISION-MAKING Aged Out No longer eligible based on patient's age to complete this topic MENINGOCOCCAL GROUPS A/C/Y/W VACCINE Aged Out No longer eligible based on patient's age to complete this topic Insurance AETNA AETNA MEDICARE ADV AETNA MEDICARE ADV SELF PAY NO INSURANCE Member Subscriber Plan / Payer (Ef fective for All Dates) Name:Jeb Mesfin Marin Member ID:Not on file Relation to Subscriber:Not on file Name:RUSS,MESFIN Subscriber ID:Not on file (Home) Address: [place] [address] Payer ID:Not on file Group ID:Not on file Type:Self Pay Address: [place], [place] AETNA MEDICARE ADV SELF PAY NO INSURANCE Member Subscriber Plan / Payer (Ef fective for All Dates) Name:RussMesfin Member ID:Not on file Relation to Subscriber:Not on file Name:MESFIN RUSS Subscriber ID:Not on file (Home) Address: [address] [place] [phone] Payer ID:Not on file Group ID:Not on file Type:Self Pay Address: [place], [place] * Guarantor: MARIA D RUSS Account Type Relation to Patient Date of Phone Billing Address Personal/Family Spouse Care Teams Fairmont Gold Attendant Relationship Specialty Start Date End Date Odin Alex MD [address] [place] [address] [place] [phone] PCP - General Internal Medicine 04/12/19 [place] [address] [facility] [address] [place] [address] PCP - [place] 01/01/25 Mckenzie Gilliam MD [address] [facility] [address] [facility] [address] [place] [id number] Pulmonary Disease 07/21/25
--- OUTSIDE RECORDS SUMMARY | 2025-07-28 09:52 | XMS_ITS | Clinical Summary ---
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 As long as they remain on this medication, an ECG will be performed every 6 months for monitoring. Assessment & Plan (12/24/2017 4:09 PM GRAIN II FARMWORKER): 12-lead ECG today does not demonstrate any [...] Eliquis 5 mg twice daily.He has a ZVA7YC8-IYZi score of 2, therefore it is recommended that he remain anticoagulated for thromboprophylaxis. Assessment & Plan (12/24/2017 4:10 PM GRAIN II FARMWORKER): The patient has a AAQ3WF5-XAAi score of 2 (annualized risk of stroke 2.2 %). I have therefore recommended that he remain anticoagulated for thromboprophylaxis. The patient will follow-up with me in 3-4 months for an office visit and twelve- lead ECG. Assessment & Plan (09/29/2017 2:05 PM CDT): The patient has a ETN0OW8-KNJp score of 2 (annualized risk of stroke 2.2 %). I have therefore recommended that he remain anticoagulated for thromboprophylaxis. He will follow-up with me 1 month after cardioversion. Assessment & Plan (07/27/2017 2:59 PM CDT): The patient has a ZVS3CF0-WVVj score of 2 (annualized risk of stroke 2%). I have therefore recommended that he remain anticoagulated for thromboprophylaxis. The patient will follow up with me in 6 months, unless he has recurrence. Assessment & Plan (06/28/2017 2:51 PM CDT): The patient has a BQE1IY3-KWEq score of 2 (annualized risk of stroke [...] EKG. Assessment & Plan (12/24/2017 4:09 PM GRAIN II FARMWORKER): The patient is status post ablation for [...] (HCC) COPD (chronic obstructive pu lmonary disease) Osteoarthritis Low back pain Chronic pain disorder [...] on file Legal Sex Male 10:59 AM GRAIN II FARMWORKER Gender Identity Male 12/28/2021 10:54 PM GRAIN II FARMWORKER Sexual Orientation Straight 12/28/2021 10 :54 PM GRAIN II FARMWORKER Obstetrics History Last Filed Vital Signs Vital Sign Reading Time Taken Comments Blood Pressure 149/82 11/26/2024 12:09 PM GRAIN II FARMWORKER Pulse 75 11/26/2024 12:09 PM GRAIN II FARMWORKER Temperature 36.7 C (98 F) 11/26/2024 12:09 PM GRAIN II FARMWORKER Respiratory Rate 20 11/26/2024 12:09 PM GRAIN II FARMWORKER Oxygen Saturation 97% 11/26/2024 12:09 PM GRAIN II FARMWORKER Inhaled Oxygen Concentration - - Weight 115.7 kg (255 lb) 11/25/2024 12:14 PM GRAIN II FARMWORKER Height 182.9 cm (6') 11/25/2024 12:14 PM GRAIN II FARMWORKER Body Mass Index 34.58 11/25/2024 12:14 PM GRAIN II FARMWORKER Plan of Treatment Health Maintenance Due Date Last Done Comments Depression Screening 1945 Hepatitis C Screening 1945 DTaP/Tdap/Td Vaccine (1 - Tdap) 1957 Hepatitis B Screening 1964 Zoster Vaccine (1 of 2) 1996 Well Visit 65+ 2011 Covid-19 Vaccine (5 - 2023-2 5 season) 2024 03/18/2022, 08/30/2021, 02/18/2021, Additional history exists Influenza Vaccine (#1) 2025 , 11/04/2022, 08/30/2021, Additional history exists Fall Risk Assessment 11/26/2025 11/26/2024, 11/18/2023, 03/18/2022, Additional history exists Pneumococcal vaccine 65+ Completed 023, 01/03/2015, 09/01/2011 Abdominal Aortic Aneurysm (A AA) Screen Completed 10/06/2023, 08/24/2022 Goals Goal Patient Goal Type Associated Problems [...] home safety. Medical Devices Implanted Type Area Professor Of Biostatistics Device Identifier Shelf Expiration Date Model / Serial / Lot Shutter Guardian Stent Coronary Drug Eluting Rapid Exchange Synergy Xd [id number] [employer] [id number] - [id number] Implanted:Qty: 1 on 11/25/2024 by Gene De La Garza MD at [facility] Shutter Guardian 05/05/2026 [id number] / / [id number] Procedures Procedure Name Priority Date/Time Associated Diagnosis Comments CTA ABDOMEN PELVIS W WO CONTRAST Schedule Routine, Read Routine (OP Routine) 10/06/2023 1:35 PM GRAIN II FARMWORKER Dissection of aorta, unspecified portion of aorta (HCC) from Last 3 Months or Most Recently Relevant to Health Maintenance Results * CTA Abdomen Pelvis (10/06/2023 1:35 PM GRAIN II FARMWORKER) Anatomical Region Laterality Modality Body N/A Computed Tomogra phy 10/06/2023 2:15 PM GRAIN II FARMWORKER Impressions 10/07/2023 1:05 PM GRAIN II FARMWORKER IMPRESSION: 1. Stable small infrarenal penetrating atherosclerotic ulcers. No abdominal aortic aneurysm or evidence of instability. 2. Morphologic features of hepatic fibrosis. Dictated by: Melonie Rodriguez M.D. The radiology attending physician has personally reviewed this study, and had reviewed and/or edited this written report and agrees with it. Electronically signed by: Cuauhtemoc Otero M.D. Narrative 10/07/2023 1:05 PM GRAIN II FARMWORKER EXAMINATION: CT ANGIOGRAPHY OF THE ABDOMEN AND [...] Relevant to Health Maintenance Insurance AETNA MEDICARE T MEDICARE [facility] MEDICARE Advance Directives For more information, please contact: [phone] * Full Code (Latest Code Status on File) Date Activated Date Inactivated Comments 11/25/2024 11:59 AM 11/26/2024 5:49 PM Care Teams Supervisor Data Processing Relationship Specialty Start Date End Date Odin Alex MD PCP - General 02/28/17 Gene De La Garza MD [address] [place] [address] Consulting Physician Cardiology 11/26/24
--- OUTSIDE RECORDS SUMMARY | 2025-07-28 09:52 | XMS_ITS | Patient Health Record ---
Author Organization [facility] Address [address] [place], [place] [id number] Care Team Providers Care Dust Control Engineer Name Role Phone DANNY SALAZAR Unavailable [phone] Odin Alex Unavailable Unavailable Allergies No Known Allergies Reason For Referral No Information Medications Medication SIG (Take, Route, Frequency, Duration) Notes Start Date End Date Status Metoprolol Succinate ER 25 MG Oral; Duration: 90 Days Active Valsartan-hydroCHL OROthiazide 160-12.5 MG Oral; Duration: 90 Days Active Pantoprazole Sodium 40 MG Oral; Duration: 90 Days Active Montelukast Sodium 10 MG Oral; Duration: 90 Days Active Clopidogrel Bisulfate 75 MG Oral; Duration: 90 Days Active terbinafine 250 MG Oral Tablet ORAL terbinafine 250 MG Oral TabletOriginal Medicationterbinafine 250 MG Oral Tablet *Reorder from [employer] for eRx and Interaction Alerts* 04/12/2021 Active Breztri Aerosphere 160-9-4.8 MCG/ACT INHALE 2 PUFFS TWICE DAILY Inhalation; Duration: 90 Days Active Albuterol Sulfate HFA 108 (90 Base) MCG/ACT INHALE 2 PUFFS BY MOUTH EVERY 6 HOURS NEEDED Inhalation; Duration: 25 Days Active Eliquis Active Pravastatin Sodium 40 MG TAKE 1 TABLET BY MOUTH ONCE DAILY Oral; Duration: 90 Days Active Valsartan-hydroCHL OROthiazide 320-25 MG Oral; Duration: 90 Days Active Ipratropium [place] 0.06 % Nasal; Duration: 14 Days Active Immunizations Vaccine Route Administration Date Status Comme nts Influenza, high dose seasonal Unknown 10/30/2023 Admini stered Vital Signs Height-cm 185.42 cm 05/05/2025 Weight-kg 102.06 kg 05/05/2025 Height 73.00 in 05/05/2025 Weight 225 lbs 05/05/2025 BMI 29.68 kg/m2 05/05/2025 Encounters Encounter Location Date Provider Diagnosis [facility] [place] [address] [place] [id number] 05/05/2025 DANNY SALAZAR 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 ; Pain in right foot M79.671 ; Atherosclerosis of [place] arteries of extremities with intermittent claudication, bilateral legs I70.213 and Onychomycosis B35.1 [facility] [address] [place] [id number] 07/07/2025 DANNY SALAZAR 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 ; Pain in right foot M79.671 ; Atherosclerosis of [place] arteries of extremities with intermittent claudication, bilateral legs I70.213 and Onychomycosis B35.1 [facility] [place] [facility] [address] [place] [id number] 02/10/2025 DANNY SALAZAR 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 ; Pain in right foot M79.671 ; Atherosclerosis of [place] arteries of extremities with intermittent claudication, bilateral legs I70.213 and Onychomycosis B35.1 [facility] [place] [facility] [address] [place] [id number] 02/24/2025 DANNY SALAZAR 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 02/24/2025 Atherosclerosis of [place] arteries of extremities with intermittent claudication, bilateral legs (ICD-10 - I70.213) 05/05/2025 Atherosclerosis of [place]ski arteries of extremities with intermittent claudication, bilateral legs (ICD-10 - I70.213) 07/07/2025 Atherosclerosis of [place]ski arteries of extremities with intermittent claudication, bilateral legs (ICD-10 - I70.213) 07/07/2025 Onychomycosis (ICD-10 - B35.1) All corns or calluses, as described in the note above, were cut and pared utilizing a #15 blade. 05/05/2025 Onychomycosis (ICD-10 - B35.1) All corns [...] Preventing Falls: Care Instructions material was printed 07/07/2025 Other Nails 1-5 Bilateral were debrided extensively with nail nippers and emery board, reducing length and girth to pink healthy tissue with any subungual debris and necrotic tissue removed, Preventing Falls: Care Instructions material was printed, Preventing Falls: Care Instructions material was published 02/24/2025 Other Nails 1-5 Bilateral were debrided extensively with nail nippers and emery board, reducing length and girth to pink healthy tissue with any subungual debris and necrotic tissue removed Plan Of Treatment Next Appt Details Provider Name:DANNY BELLO, 09/08/2025 11:20:00 AM, [address], [facility], [place], [place], [phone], Insurance Providers Payer Name Payer Address Payer Phone Subscriber Number Group Number Insured Name Patient Relationship to Insured Coverage Start Date Coverage End Date Aetna [address] [place] [phone] [id number] MESFIN CASTAÑEDA Self - patient is the insured Medical (General) History Medical History History ICD Code Diabetic
--- OUTSIDE RECORDS SUMMARY | 2025-07-28 09:52 | XMS_ITS | Encounter Summary ---
Author Organization [facility] Address [address] [facility] [address] [place] [address] Care Team Providers Care Business Management Associate Name Role Phone Odin Alex MD Primary Care Provider Gene De La Garza MD Unavailable [phone] Encounter Details Date Type Department Care Team (Late st Contact Info) Description 03/27/2017 Orders Only Arrhythmia Center Provider, MD Shanell [address] [place], [place] [phone] Social History Tobacco Use Types Packs/Day Years Used Date Smoking Tobacco: Former Cigarettes Q uit: 12/01/2000 Comments:Smoking History Pac ks/day: 20 Packs Alcohol Use Standard Drinks/Week Comments No 0 (1 standard drink = 0.6 oz pur e alcohol) Sex and Gender Information Value Date Recorded Sex Assigned at Not on file Legal Sex Male 10:59 AM VIDEOTAPE RECORDING ENGINEER Gender Identity Male 12/28/2021 10:54 PM VIDEOTAPE RECORDING ENGINEER Sexual Orientation Straight 12/28/2021 10 :54 PM VIDEOTAPE RECORDING ENGINEER documented as of this encounter Plan of [...] on filedocumented in this encounter Care Teams Business Management Associate Relationship Specialty Start Date End Date Odin Alex MD PCP - General 02/28/17 Gene De La Garza MD [address] [place] [address] Consulting Physician Cardiology 11/26/24 documented as of this encounter
--- OUTSIDE RECORDS SUMMARY | 2025-07-28 09:52 | XMS_ITS | Patient Health Record ---
Author Organization [facility] [place] ([address]) Address [address] [place] [address] Care Team Providers Care Managed Care Analyst Name Role Phone Odin Alex MD Primary Care Provider Dr. Jens Crockett Unavailable [phone] Hugo Dempsey Unavailable Allergies No Known Allergies [...] review and pick correct strength-formulatio n from [employer] options. If intended option is not shown, discontinue and re-order from Quick Search* Active Centrum THERAPEUTIC MULTIPLE VITAMINS WITH MINERALS 1 TAB(S) ORALLY ONCE A DAY *Please review and pick correct strength-formulatio n from [employer] options. If intended option is not shown, [...] Polyneuropathy due to type 2 diabetes mellitus (264374498) Type 2 diabetes mellitus with diabetic polyneuropathy (E11.42) Active confirmed Problem Chronic migraine without aura, non-refractory (disorder) (779859541510839) Migraine without aura, not intractable, without status migrainosus (G43.009) Active confirmed Problem Migraine with aura, not intractable, without status migrainosus (G43.109) Active confirmed Problem Chronic migraine without aura, non-intractable (829360527428586) Chronic migraine without aura, not intractable, without status migrainosus (G43.709) Active confirmed Problem Carpal tunnel syndrome (52092351) Carpal tunnel syndrome, bilateral upper limbs (G56.03) Active confirmed Plan Of Treatment No Information Insurance Providers Payer Name Payer Address Payer Phone Subscriber Number Group Number Insured Name Patient Relationship to Insured Coverage Start Date Coverage End Date Aetna Medicare [address] [place] [address] [id number] Billy Russ Self - patient is the insured 4 Medical (General) History Medical History History ICD Code HLD HTN PAFib COPD CASTRO Lumbar DDD OA DM2 Surgical History Surgery Date(Month/Year) S/p lumbar FLAVIO S/p cataracts S/p pilonidal cyst removal S/p cardiac ablation
[2025-07-28 11:41] LABS: Hemoglobin A1C 6.1 % (<5.7)
[2025-07-28 11:52] LABS: CRP 2.3 mg/dL (<1.0); Creatine Kinase 62 U/L (55-170)
[2025-07-28 12:43] LABS: Vitamin B12 680.0 pg/mL (239-931)
[2025-08-02 10:08] LABS: ANA by IFA Rfx Titer/Pattern Negative (.)
[2025-08-02 14:08] LABS: Immunoglobulin A, Qn 114 mg/dL (61-437); Immunoglobulin G, Qn 863 mg/dL (603-1613); Immunoglobulin M, Qn <5 mg/dL (15-143)
[2025-08-05 07:09] LABS: 1,25-Dihydroxy, Vitamin D-2 <10 pg/mL (.); 1,25-Dihydroxy, Vitamin D-3 30 pg/mL (.); Total 1,25-Dihydroxy,Vitamin D 31 pg/mL (.)
[2025-08-05 19:08] LABS: Vit. B1, Whole Blood 219.5 nmol/L (66.5-200.0)
== END 2025-07-28 09:40 | disposition home or self-care (01) ==
PROVIDERS: Psychiatry & Neurology Neurology; PCP Internal Medicine; Visit Provider Internal Medicine Nephrology
DX: E11.9 Type 2 diabetes mellitus without complications (principal); G62.9 Polyneuropathy, unspecified; I12.9 Hypertensive chronic kidney disease with stage 1 through stage 4 chronic kidney disease, or unspecified chronic kidney disease; N18.32 Chronic kidney disease, stage 3b; G47.33 Obstructive sleep apnea (adult) (pediatric); Z99.89 Dependence on other enabling machines and devices; I48.0 Paroxysmal atrial fibrillation; N40.0 Benign prostatic hyperplasia without lower urinary tract symptoms; N28.1 Cyst of kidney, acquired; N32.3 Diverticulum of bladder
CPT/HCPCS: 36415; 76770; 82550; 82607; 82652; 82746; 82784; 83036; 83090; 84207; 84425; 86038; 86140; 86334; 86430

== ENCOUNTER 2025-08-02 10:45 | Outpatient (RCR) | payer MEDICARE, SELFPAY ==
[2025-06-29 13:22] VITALS: BMI 33.6
[2025-06-29 13:30] VITALS: BMI 33.6
[2025-08-02 10:45] VITALS: BMI 33.6
== END 2025-09-13 06:22 | disposition home or self-care (01) ==
LOC: ANHDMC 10:45
PROVIDERS: PCP Internal Medicine; Visit Provider Internal Medicine
DX: E11.9 Type 2 diabetes mellitus without complications (principal); Z71.3 Dietary counseling and surveillance; Z71.89 Other specified counseling
CPT/HCPCS: 97802; 97803; G0108

== ENCOUNTER 2025-09-19 08:02 | Outpatient (CLI) | payer MEDICARE, SELFPAY ==
--- OUTSIDE RECORDS SUMMARY | 2024-05-15 16:30 | XMS_ITS ---
Author Organization [facility] [place] ([address]) Address [address] [place] [address] Care Team Providers Care Machine Tool Technician Instructor Name Role Phone Odin Alex MD Primary Care Provider Dr. Jens Crockett Unavailable [phone] Hugo Dempsey Unavailable Unavailable ZZ-Migration, Provider Unavailable Unavailab le REASON FOR VISIT [facility] To [facility] Conversion Encounter Medications Medication SIG (Take, Route, [...] Active Encounters Encounter Location Date Provider Diagnosis [facility] [place] [address] 05/15/2024 Provider ZZ-Migration Plan Of Treatment No Information Progress Notes * Billy RUSS LDOB:1944 (80 yo M)Acc No.[id number]:05/15/2024 Patient: S Billy RAMIREZ L Provider: Ana Lilia Salas :1945 A ge:78 Y S ex:Male Date:05/15/2024 Address:[address] [place], [place] [id number] Pcp:Odin Alex MD Subjective: * Chief Complaints: * 1 . Multum To Medispan Conversion Encounter. * Medical History: * Medications: T aking Flonase Allergy Relief 50 MCG/ACT Suspension 1 spray(s) in each nostril once a day , Taking Centrum THERAPEUTIC MULTIPLE VITAMINS WITH MINERALS TABLET 1 TAB(S) ORALLY ONCE A DAY , Notes to Pharmacist: *Please review and pick correct strength-formulation from SMTDP [employer]pan options. If intended option is not shown, discontinue and re-order from Quick Search*, Taking Melatonin 10 MG TABLET, EXTENDED RELEASE 1 TAB(S) ORALLY ONCE A DAY (AT BEDTIME) , Notes to Pharmacist: *Please review and pick correct strength-formulation from SMTDP Techn[employer]pan options. If intended option is not shown, [...] * Electronic signature of Yolie STINSON-Migration on 09/19/2025 at 08:11 AM CDT Sign off status: Pending * Provider: Ana Lilia gonzalez Migration Date: 0 05/15/2024 Generated for Satish benitez/Nicole/Ryan on: 1 08:11 AM CDT
--- OUTSIDE RECORDS SUMMARY | 2025-07-07 06:00 | XMS_ITS ---
Author Organization [facility] Address [address] [place], [place] [id number] Care Team Providers Care Veneer Taper Name Role Phone DANNY ROSE Unavailable [phone] Odin Alex Unavailable Unavailable REASON FOR VISIT [...] MG Oral; Duration: 90 Days Active Ipratropium [place] 0.06 % Nasal; Duration: 14 Days Active terbinafine 250 MG Oral Tablet ORAL terbinafine 250 MG Oral TabletOriginal Medicationterbinafine 250 MG Oral Tablet *Reorder from [employer] for eRx and Interaction Alerts* 04/12/2021 Active Sujataquis Active Encounters Encounter Location Date Provider Diagnosis [facility] [place] [address] [place], [place] [id number] 07/07/2025 DANNY ROSE 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 ; Pain in right foot M79.671 ; Atherosclerosis of [place] arteries of extremities with intermittent claudication, bilateral legs I70.213 and Onychomycosis B35.1 Assessments Encounter Date Diagnosis (ICD Code) Assessment Notes Treatment Notes Treatment Clinical Notes Section Notes 07/07/2025 Non-pressure chronic ulcer of other part of right foot limited to breakdown of skin (ICD-10 - L97.511) 07/07/2025 Pain in right foot (ICD-10 - M79.671) 07/07/2025 Atherosclerosis of [place] arteries of extremities with intermittent claudication, bilateral [...] BELLO, 11/15/2025 12:30:00 PM, [address] [facility], [facility], [place] [address], [place], [id number], Progress Notes * MESFIN CASTAÑEDA LDOB:1944 (80 yo M)Acc No.[id number]:07/07/2025 Patient: Irineo MESFIN RAMIREZ Provider: Damian Rose DPM :1945 A ge:80 Y S ex:Male Date:07/07/2025 Address:[address] [place], [place] [address] [id number] Subjective: * Chief Complaints: * 1 . [...] Medicationterbinafine 250 MG Oral Tablet *[facility]order from [facility] for eRx and Interaction Alerts*, Taking Breztri Aerosphere 160-9-4.8 MCG/ACT Aerosol INHALE 2 PUFFS TWICE DAILY Inhalation , Taking Valsartan-hydroCHLOROthiazide 320-25 MG Tablet Oral , Taking Ipratropium [place] 0.06 % Solution Nasal , Taking Metoprolol [...] - M79.671 3 . A therosclerosis of [place] arteries of extremities with intermittent claudication, bilateral [...] weeks * Billing Information: * Visit Code: 47003 Office Visit, Est Pt., Level 3. * Procedure Codes: * Electronic signature of DANNY ROSE DPM on 09/19/2025 at 08:12 AM CDT Sign off status: Pending * Provider: Damian Rose DPM Date: 0 07/07/2025 Generated for Satish benitez/Nicole/Ryan on: 1 08:12 AM CDT History and Physical Notes * [...]
--- OUTSIDE RECORDS SUMMARY | 2025-09-08 06:20 | XMS_ITS ---
Author Organization [facility] Address [address] [place], [place] [phone] Care Team Providers Care Associate Professor Of Philosophy Name Role Phone DANNY ROSE Unavailable [phone] Odni Alex Unavailable Unavailable Allergies No Known Allergies REASON FOR VISIT *General care Medications Medication SIG (Take, Route, Frequency, Duration) Notes Start Date End Date Status Pantoprazole Sodium 40 MG Oral; Duration: 90 Days Active Valsartan-hydroCHL OROthiazide 160-12.5 MG Oral; Duration: 90 Days Active Clopidogrel Bisulfate 75 MG Oral; Duration: 90 Days Active Montelukast Sodium 10 MG Oral; Duration: 90 Days Active Albuterol Sulfate HFA 108 (90 Base) MCG/ACT INHALE 2 PUFFS BY MOUTH EVERY 6 HOURS NEEDED Inhalation; Duration: 25 Days Active Breztri Aerosphere 160-9-4.8 MCG/ACT INHALE 2 PUFFS TWICE DAILY Inhalation; Duration: 90 Days Active terbinafine 250 MG Oral Tablet ORAL terbinafine 250 MG Oral TabletOriginal Medicationterbinafine 250 MG Oral Tablet *Reorder from [employer] for eRx and Interaction Alerts* 04/12/2021 Active Metoprolol Succinate ER 25 MG Oral; Duration: 90 Days Active Ipratropium [place] 0.06 % Nasal; Duration: 14 Days Active Valsartan-hydroCHL OROthiazide 320-25 MG Oral; Duration: 90 Days Active Eliquis Active Pravastatin Sodium 40 MG TAKE 1 TABLET BY MOUTH ONCE DAILY Oral; Duration: 90 Days Active Vital Signs Height 73.00 in 09/08/2025 Height-cm 185.42 cm 09/08/2025 Encounters Encounter Location Date Provider Diagnosis [facility] [address] [place], [place] [id number] 09/08/2025 DANNY MARIE 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 ; Pain in right foot M79.671 ; Atherosclerosis of [place] arteries of extremities with intermittent claudication, bilateral legs I70.213 and Onychomycosis B35.1 Assessments Encounter Date Diagnosis (ICD Code) Assessment Notes Treatment Notes Treatment Clinical Notes Section Notes 09/08/2025 Non-pressure chronic ulcer of other part of right foot limited to breakdown of skin (ICD-10 - L97.511) 09/08/2025 Pain in right foot (ICD-10 - M79.671) 09/08/2025 Atherosclerosis of [place] arteries of extremities with intermittent claudication, bilateral [...] Follow Up: 9 weeks, Reason: Provider Name:DANNY C HARJEET EUGENIA, 11/15/2025 12:30:00 PM, [address], [place], [place], [phone], Progress Notes * MESFIN CASTAÑEDA LDOB:1944 (80 yo M)Acc No.[id number]:09/08/2025 Patient: MESFIN HUGGINS Provider: Damian Rose DPM :1945 A ge:80 Y S ex:Male Date:09/08/2025 Address:[address] [place] [address] Subjective: * Chief Complaints: * 1 . [...] It is getting worse. * Medical History: D iabetic. * Family History: F ather: PRN - [...] Medicationterbinafine 250 MG Oral Tablet *Reorder from [employer] for eRx and Interaction Alerts*, Taking Breztri Aerosphere 160-9-4.8 MCG/ACT Aerosol INHALE 2 PUFFS TWICE DAILY Inhalation , Taking Valsartan-hydroCHLOROthiazide 320-25 MG Tablet Oral , Taking Ipratropium [place] 0.06 % Solution Nasal , Taking Metoprolol [...] * Allergies: N .K.D.A. Objective: * Vitals: H t: 73.00 in, [...] - M79.671 3 . A therosclerosis of [place] arteries of extremities with intermittent claudication, bilateral [...] was published * Follow Up: 9 weeks * Billing Information: * Visit Code: * Procedure Codes: * Electronic signature of DANNY ROSE DPM on 09/19/2025 at 08:13 AM CDT Sign off status: Pending * Provider: Damian Rose DPM Date: Generated for Satish benitez/Nicole/yRan on: 08:13 AM CDT History and Physical Notes * [...] ds bilaterally Temperature gradient: warm to cool russell huitron
--- OUTSIDE RECORDS SUMMARY | 2025-09-19 08:11 | XMS_ITS | Encounter Summary ---
Author Organization [facility] Address [address] [place] [address] Care Team Providers Care Office Asst Name Role Phone Odin Alex MD Primary Care Provider Gene De La Garza MD Unavailable [phone] Encounter Details Date Type Department Care Team (Late st Contact Info) Description 03/27/2017 Orders Only Arrhythmia Center Provider, MD Shanell [address] [place], [place] [phone] Social History Tobacco Use Types Packs/Day Years Used Date Smoking Tobacco: Former Cigarettes Q uit: 12/01/2000 Comments:Smoking History Pac ks/day: 20 Packs Alcohol Use Standard Drinks/Week Comments No 0 (1 standard drink = 0.6 oz pur e alcohol) Sex and Gender Information Value Date Recorded Sex Assigned at Not on file Legal Sex Male 10:59 AM COMPUGRAPH OPERATOR Gender Identity Male 12/28/2021 10:54 PM COMPUGRAPH OPERATOR Sexual Orientation Straight 12/28/2021 10 :54 PM COMPUGRAPH OPERATOR documented as of this encounter Plan of [...] on filedocumented in this encounter Care Teams Office Asst Relationship Specialty Start Date End Date Odin Alex MD PCP - General 02/28/17 Gene De La Garza MD [address] [place] [address] Consulting Physician Cardiology 11/26/24 documented as of this encounter
--- OUTSIDE RECORDS SUMMARY | 2025-09-19 08:11 | XMS_ITS | Clinical Summary ---
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 As long as they remain on this medication, an ECG will be performed every 6 months for monitoring. Assessment & Plan (12/24/2017 4:09 PM OFFICE ASSISTANCE): 12-lead ECG today does not demonstrate any [...] Eliquis 5 mg twice daily.He has a SXO8QK2-PRCp score of 2, therefore it is recommended that he remain anticoagulated for thromboprophylaxis. Assessment & Plan (12/24/2017 4:10 PM OFFICE ASSISTANCE): The patient has a ZMB0KB1-PBGv score of 2 (annualized risk of stroke 2.2 %). I have therefore recommended that he remain anticoagulated for thromboprophylaxis. The patient will follow-up with me in 3-4 months for an office visit and twelve- lead ECG. Assessment & Plan (09/29/2017 2:05 PM CDT): The patient has a TAZ8NN1-RZFx score of 2 (annualized risk of stroke 2.2 %). I have therefore recommended that he remain anticoagulated for thromboprophylaxis. He will follow-up with me 1 month after cardioversion. Assessment & Plan (07/27/2017 2:59 PM CDT): The patient has a UDX2QQ1-LKDo score of 2 (annualized risk of stroke 2%). I have therefore recommended that he remain anticoagulated for thromboprophylaxis. The patient will follow up with me in 6 months, unless he has recurrence. Assessment & Plan (06/28/2017 2:51 PM CDT): The patient has a EMJ4NE0-PKLa score of 2 (annualized risk of stroke [...] EKG. Assessment & Plan (12/24/2017 4:09 PM OFFICE ASSISTANCE): The patient is status post ablation for [...] on file Legal Sex Male 10:59 AM OFFICE ASSISTANCE Gender Identity Male 12/28/2021 10:54 PM OFFICE ASSISTANCE Sexual Orientation Straight 12/28/2021 10 :54 PM OFFICE ASSISTANCE Obstetrics History Last Filed Vital Signs Vital Sign Reading Time Taken Comments Blood Pressure 149/82 11/26/2024 12:09 PM OFFICE ASSISTANCE Pulse 75 11/26/2024 12:09 PM OFFICE ASSISTANCE Temperature 36.7 C (98 F) 11/26/2024 12:09 PM OFFICE ASSISTANCE Respiratory Rate 20 11/26/2024 12:09 PM OFFICE ASSISTANCE Oxygen Saturation 97% 11/26/2024 12:09 PM OFFICE ASSISTANCE Inhaled Oxygen Concentration - - Weight 115.7 kg (255 lb) 11/25/2024 12:14 PM OFFICE ASSISTANCE Height 182.9 cm (6') 11/25/2024 12:14 PM OFFICE ASSISTANCE Body Mass Index 34.58 11/25/2024 12:14 PM OFFICE ASSISTANCE Plan of Treatment Health Maintenance Due Date Last Done Comments Depression Screening 1945 Hepatitis C Screening 1945 DTaP/Tdap/Td Vaccine (1 - Tdap) 1957 Hepatitis B Screening 1964 Zoster Vaccine (1 of 2) 1996 Well Visit 65+ 2011 Covid-19 Vaccine (5 - 2024-2 6 season) 2025 03/18/2022, 08/30/2021, 02/18/2021, Additional history exists Influenza [...] home safety. Medical Devices Implanted Type Area Vallez Filter Operator Device Identifier Shelf Expiration Date Model / Serial / Lot [employer] Stent Coronary Drug Eluting Rapid Exchange Synergy Xd [id number] [place] [employer] [id number] - [id number] Implanted:Qty: 1 on 11/25/2024 by Gene De La Garza MD at [facility] [employer] 05/05/2026 [id number] / / [id number] Procedures Procedure Name Priority Date/Time Associated Diagnosis Comments CTA ABDOMEN PELVIS W WO CONTRAST Schedule Routine, Read Routine (OP Routine) 10/06/2023 1:35 PM OFFICE ASSISTANCE Dissection of aorta, unspecified portion of aorta (HCC) from Last 3 Months or Most Recently Relevant to Health Maintenance Results * CTA Abdomen Pelvis (10/06/2023 1:35 PM OFFICE ASSISTANCE) Anatomical Region Laterality Modality Body N/A Computed Tomogra phy 10/06/2023 2:15 PM OFFICE ASSISTANCE Impressions 10/07/2023 1:05 PM OFFICE ASSISTANCE IMPRESSION: 1. Stable small infrarenal penetrating atherosclerotic ulcers. No abdominal aortic aneurysm or evidence of instability. 2. Morphologic features of hepatic fibrosis. Dictated by: Melonie Rodriguez M.D. The radiology attending physician has personally reviewed this study, and had reviewed and/or edited this written report and agrees with it. Electronically signed by: Cuauhtemoc Otero M.D. Narrative 10/07/2023 1:05 PM OFFICE ASSISTANCE EXAMINATION: CT ANGIOGRAPHY OF THE ABDOMEN AND [...] Health Maintenance Insurance [employer] MEDICARE T MEDICARE [facility] MEDICARE Advance Directives For more information, please contact: [phone] * Full Code (Latest Code Status on File) Date Activated Date Inactivated Comments 11/25/2024 11:59 AM 11/26/2024 5:49 PM Care Teams Flat Cutter Relationship Specialty Start Date End Date Odin Alex MD PCP - General 02/28/17 Gene De La Garza MD [address] [place] [address] Consulting Physician Cardiology 11/26/24
--- OUTSIDE RECORDS SUMMARY | 2025-09-19 08:12 | XMS_ITS | Data Portability ---
Author Organization [place] - [facility], Main Office Address [address] [place] [address] Assessment No assessment recorded. Plan of Treatment Reminders Order Date Submit Date Provider Last Modified By Organization Details Last Modified Time Details Appointments None recorded. Lab CBC w/ auto diff 025 025 [email or web address] [facility] (Lab), [address] [place], [address], 5 10:19:08 T4, free, serum 025 025 [email or web address] [facility] (Lab), [address] [place], [address], 5 10:19:08 TSH, serum or plasma 025 025 [email or web address] [facility] (Lab), [address] [place], [address], 5 10:19:08 lipid panel, serum 025 025 [email or web address] [facility] (Lab), [address] [place], [address], 5 10:19:07 CMP, serum or plasma 025 025 [email or web address] [facility] (Lab), [address] [place], [address], 5 10:19:08 lipid panel, serum [email or web address] Not available 4 16:56:55 CMP, serum or plasma [email or web address] Not available 4 16:56:55 HbA1c (hemoglob in A1c), blood Not available 4 16:56:55 TSH, serum or plasma [email or web address] Not available 4 16:56:55 T4, free, serum [email or web address] Not available 4 16:56:55 CBC w/ auto diff [email or web address] Not available 4 16:56:54 PSA, serum or plasma 024 [email or web address] Not available 4 11:53:45 vitamin B12, serum 024 [email or web address] Not available 4 11:53:45 magnesium , serum or plasma 024 024 Not available 4 11:53:45 lipid panel, serum 024 024 Not available 4 16:54:06 CMP, serum or plasma 024 [email or web address] Not available 4 11:53:45 TSH, serum or plasma 024 024 [email or web address] Not available 4 16:53:40 T4, free, serum 024 Not available 4 16:53:51 CBC w/ auto diff 024 Not available 4 16:53:25 Referral None recorded. Procedures None recorded. Surgeries None recorded. Imaging None recorded. Medication Orders None recorded. Patient TargetsNo targets recorded. Patient Instructions Encounter Date Encounter Id Patient Instructions Last Modified By Organization Details Last Modified Time 04/27/2024 [id number] Follow-up hypertension, paroxysmal atrial fibrillation, hyperlipidemia, chronic [...] recognize, using context, where substitutions have occurred. [email or web address] Not available 04/27/2024 15:31:43 09/09/2024 [id number] dementia rating scale-2* [email or web address] Not available 09/09/2024 12:50:44 alcohol misuse* [email or web address] Not available 09/09/2024 12:50:44 depression screening* [email or web address] Not available 09/09/2024 12:50:44 Timed Up and Go test (TUG)* [email or web address] Not available 09/09/2024 12:50:44 multi-dimensiona l health assessment questionnaire* [email or web address] Not available 09/09/2024 12:50:44 Personalized [facility] Plan and Screening Recommendations Advance Directives - Do you have one? No Not interested at this time Advance Directives - Do we have your advance directive on file in your health record? Primary Prevention/Interven tion (prevents or decreases the chance of common diseases from occurring) Smoking Risk: Non Smoker Alcohol Misuse Screening: Negative Weight: Overweight try to lose 10% of your body weight Physical activity: Need more exercise/physical activity Nutrition: Average Eat heart healthy diet Fall Risk (screened today): Intermediate Recommend regular use of cane or walker Vaccines Pneumococcal: No further needed Influenza: Recommended today Chronic Disease Risks Stroke: Intermediate Risk Active diagnosis, Continue current treatment plan Heart Attack: Intermediate Risk Active diagnosis, Continue current treatment plan Clogging of the Arteries: Intermediate Risk Active diagnosis, Continue current treatment plan Diabetes: Intermediate Risk Drastically limit sugar and products made with any type of flour (bread, pasta, cereal, cookies, crackers, etc.) Secondary Prevention/Interven tion (detects treatable diseases before they may cause symptoms, disability, or ) Prostate Cancer Screening: up to date Colon Cancer Screening: Colonoscopy due 2024 Date Screening Last Performed: _2014___ Eye Disease Screening: Your next exam in: goes yearly Dementia Risk: Low I have no recommendations Depression Screening: Negative Active diagnosis, Continue current treatment plan [email or web address] Not available 09/09/2024 12:28:01 Medicare wellnes s [...] recognize, using context, where substitutions have occurred. [email or web address] Not available 09/09/2024 12:51:23 01/11/2025 [id number] Coronary artery disease, paroxysmal atrial fibrillation, hypertension [...] Created: Odin Alex M.D. 01.11.2025 11:39 AM [email or web address] Not available 01/11/2025 12:39:30 02/10/2025 [id number] In primarily because of a fall several days ago. Apparently tripped over some equipment at [facility] [employer]. End up hitting the back side of his head as well as the right shoulder and arm. Has considerable amount of ecchymotic changes over these areas. Did go to the emergency room had CT head scans as well as CT cervical scans performed which were all negative. Clinically is doing better. Is scheduled to see pulmonology next week. Keep Appointment: Fri 11:00 AM [place] Portions of record are template driven. When necessary additional context will be provided. Additionally some portions have been created with voice recognition software. Occasional wrong-word or s ound-a-like substitutions may have occurred due to the inherent limitations of voice recognition software. Read the chart carefully and recognize, using context, where substitutions may have occurred. Created: Odin Alex M.D. 02.10.2025 01:43 PM [email or web address] Not available 02/10/2025 14:43:10 05/24/2025 [id number] Follow-up for coronary artery disease, essential hypertension, hyperlipidemia, paroxysmal atrial fibrillation, chronic obstructive lung disease and obesity class two all clinically stable. Is having additional or more progressive problems with ambulation. Does use a cane and walker on a regular basis. He is markedly impaired as far as his ability to walk any distances. Would benefit from electronic mobile device. Will have him evaluated by Physical therapy and consider getting a mobile device. Check blood work consisting of CBC, CMP, lipid and thyroid. Continue on current Rx follow-up in four months Additional Orders - Directives - Recommendations 1. Have the patient evaluated by Physical therapy for possible motorized scooter or chair. Follow Up: 4 Months Approximate Date: 09/21/2025 Portions of record are template driven. When necessary additional context will be provided. Additionally some portions have been created with voice recognition software. Occasional wrong-word or s ound-a-like substitutions may have occurred due to the inherent limitations of voice recognition software. Read the chart carefully and recognize, using context, where substitutions may have occurred. Created: Odin Alex M.D. 05.24.2025 11:42 AM [email or web address] Not available 05/24/2025 12:42:06 Reason for Referral None Reported. Results Created Date Observation Date Name Description Value Unit Range Abnormal Flag Note LastModifiedBy Organization Detail LastModifiedTime 06/01/20 24 US, retro perit oneum [facility] [address] [facility] [place] [address] Patien t Name: MESFIN WILEY Access ion #: [id number] Sex: M : 1944 4 Dictat [...] at 2023 13:36: 32 PM Page [address] (Imaging) [address] [facility] [place], [address], 06/01/2024 17:01:32 11/30/20 24 11/30/2024 US, abdom en No observ ation record ed. [address] [facility] [address], [place], [address], 11/30/2024 16:41:01 02/07/20 25 02/06/2025 CT, cervi bernard spine , w/o contr ast No observ ation record ed. [place] [id number] [facility] [address], [place], [address], 02/07/2025 06:44:55 02/07/20 25 02/06/2025 CT, brain , w/o contr ast No observ ation record ed. [address], [place], [address], 02/07/2025 06:45:41 02/07/20 25 02/06/2025 CT, chest + abdom en + pelvi s, w/o contr ast No observ ation record ed. [address], [place], [address], 02/07/2025 06:46:13 02/07/20 25 02/06/2025 XR, elbow , 2 view No observ ation record ed. [address], [place], [address], 02/07/2025 06:50:44 06/20/20 25 06/20/2025 katy lynne ow study No observ ation record ed. [address], [place], [address], 06/20/2025 17:40:22 07/28/20 25 07/28/2025 US, renal No observ ation record ed. [address], [place], [address], 07/28/2025 18:16:17 08/31/20 25 07/28/2025 US, renal No observ ation record ed. [address], [place], [address], 08/31/2025 14:23:04 Result Notes None recorded. Problems Name Problem SNOMED Code Status Onset Date Resolution Date Notes Provider Name and Address Organization Details Recorded Time Rectal hemorrhag e 59409766 Active Not Available [facility] 3 09:17:33 Hyperchol esterolem ia 22171539 Active Not Available [facility] 3 09:17:33 Gastroeso phageal reflux disease 783499507 Active Not Available [facility] 3 09:17:34 Left inguinal hernia 796911579 Active Not Available [facility] 3 09:17:34 Hypoglyce joesph 102981206 Active Not Available [facility] 3 09:17:34 Prostate specific antigen above reference range 223217194 Active Not Available [facility] 3 09:17:34 Osteoarth ritis 975923773 Active Not Available [facility] 3 09:17:34 Atrial fibrillat ion 76670366 Active Not Available [facility] 3 09:17:35 Acute bronchiti s 55250288 Active 2018 Not Available [facility] 3 09:17:33 Anxiety 17190319 Active 2019 Not Available [facility] 3 09:17:35 Chronic obstructi ve pulmonary disease 73968853 Active 2020 Not Available [facility] 3 09:17:33 Hyperlipi demia 62944882 Completed 202011/27/2021 Not Available [facility] 3 09:17:35 Obstructi ve sleep apnea syndrome 14961815 Active 2020 Not Available [facility] 3 09:17:35 Spinal stenosis of lumbar region 82138062 Active 2020 Not Available [facility] 3 09:17:34 Disorder of prostate 41291297 Active 2021 Not Available [facility] 3 09:17:34 Effects of high altitude 23699442 Active 2021 Not Available [facility] 3 09:17:36 COVID-19 433984282 Active 2021 Not Available [facility] 3 09:17:35 Obesity 013858657 Active 2021 Not Available [facility] 3 09:17:35 Obese class II 82288749351 4105 Active 2022 Odin Alex MD [address] [place] [address], [facility] [address], [place], [address] , [place] [facility] 3 15:23:13 Chronic renal failure 54706998 Active 2022 DEBBIE Rolle, [place] [facility] 3 11:31:19 Leukocyto sis 545950935 Active 2022 Aracelis Martinez CMA null, [place] [facility] 3 11:33:34 Diarrhea 66687655 Active 2022 Odin Alex MD [address] [place] [address], [place], [address] , [place] [facility] 3 16:29:58 Serum creatinin e above reference range 110202765 Active 2022 Odin Alex MD [address], [facility] [address], [place], [address] , [place] [facility] 3 10:51:32 Low back pain 852898753 Active 2022 Aracelis Martinez CMA null, [place] [facility] 3 15:20:53 Celluliti s of toe of right foot 60247330618 065433 Active 2022 Odin Alex MD [address] [place] [address], [place], [address] , [place] [facility] 3 14:48:55 Chronic low back pain 721818034 Active 2022 Mitzi stephens, [place] [facility] 3 15:33:51 Hyperglyc emia 45766166 Active 2023 Aracelis Martinez CMA null, [place] [facility] 5 10:54:22 Headache 42153918 Active 2023 Odin Alex MD [address] [place] [address], [place], [address] , [place] [facility] 4 14:19:35 Liver enzymes level above reference range 066028587 Active 2023 Aracelis Martinez CMA null, [place] [facility] 4 11:44:45 Depressiv e disorder 34028579 Active 2023 Odin Alex MD [address], [place], [address] , [place] [facility] 4 12:14:38 Abnormal liver function 63194431 Active 2023 Mitzi Torresson null, [place] [facility] 4 11:58:35 Hearing loss 36268219 Active 2023 Mitzi Jerel null, [place] [facility] 4 12:56:05 Chronic cough 65527794 Active 2024 Aracelis Martinez CMA null, [place] [facility] 5 14:19:12 Coronary arteriosc lerosis 56073248 Active 2024 Odin Alex MD [address], [place], [address] , [facility] 5 12:33:22 Dyspnea 349886487 Active 2024 Aracelis Martinez CMA null, [place] [facility] 5 12:02:46 Essential hypertens ion 02655164 Active 2024 Odin Alex MD [address], [place], [address] , [facility] 5 14:34:33 Severe chronic obstructi ve pulmonary disease 833691214 Active 2024 Katty Mcclain null, [place] [facility] 5 14:28:59 Morbid obesity 133822649 Active 2024 Katty Mcclain null, [place] [facility] 5 16:53:03 Type 2 diabetes mellitus controlle d by diet 32383651707 9101 Active 2024 Odin Alex MD [address], [place], [address] , [place] [facility] 5 09:15:04 Chronic kidney disease 113354065 Active 2024 Aracelis Martinez CMA null, [facility] 5 16:50:31 Diabetes mellitus 75370451 Active 2024 Katty Mcclain null, [facility] 5 10:12:05 Type 2 diabetes mellitus 77686181 Active 2024 Aracelis Martinez CMA null, [facility] 5 11:13:30 Newly diagnosed diabetes 136337766 Active 2024 Aracelis Martinez CMA kat, [facility] 5 11:32:02 Problem Notes None recorded. Procedures Surgical History Date Name Laterality Status Provider Name and Address Organization Details Recorded Time 4 Medicare Wellness CPT Code, subsequent completed Caryn Macias RN [facility] 09/09/2024 12:20:33 3 Medicare Wellness CPT Code, subsequent completed Caryn Macias RN [facility] 08/26/2023 14:50:18 3 Advanced Care Planning completed Caryn Macias RN [facility] 08/26/2023 14:52:44 Imaging Results None recorded. Procedure Notes None recorded. Medical Equipment None [...] Take 1 tablet by mouth once daily 2024 active Not Available Not Available Not Avai lable metformin 500 mg tablet Take 1 tablet by mouth twice daily 2024 active Not Available Not Available Not Avai lable prednison e 10 mg tablet TAKE 4 TABLETS A DAY FOR 3 DAYS IN THE MORNING WITH FOOD , DECREASE BY 1 TAB EVERY 3 DAYS UNTIL COMPLETE active Not Available Not Available No t [...] Take 1 tablet by mouth once daily 2024 active Not Available Not Available Not Avai lable acetazola mide ER 500 mg capsule,e xtended [...] 1 CAPSULE BY MOUTH THREE TIMES DAILY 05/24 completed Not Available Not Available Not Available [...] TAKE 1 TABLET BY MOUTH ONCE DAILY 05/24 completed Not Available Not Available Not Available [...] Not Available clopidogr el 75 mg tablet TAKE 1 TABLET BY MOUTH [...] Not Available Not Available No t Available acetamino phen 500 mg tablet TAKE 2 TABLETS BY MOUTH EVERY 6 HOURS NEEDED FOR PAIN active Not Available Not Available No t [...] Not Available Not Available Not Avai lable methocarb tova 750 mg tablet 05/24 completed Not Available Not Available Not Available methotrex ate sodium 2.5 mg tablet TAKE [...] 1 CAPSULE BY MOUTH EVERY 12 HOURS 05/24 completed Not Available Not Available Not Available lidocaine 5 % topical patch USE 1 PATCH EXTERNAL LY ONCE DAILY LEAVE ON MOST PAINFUL AREA FOR UP TO 12 HOURS active Not Available Not Available No t Available hydrochlo rothiazid e 12.5 mg capsule Take 1 capsule by mouth once daily 11/07 completed Not Available Not Available Not Available gabapenti n 300 mg capsule Take 1 capsule 3 times a day by oral route. 05/24 completed Not Available Not Available Not Available difloraso ne 0.05 % topical cream [...] Not Available Not Available No t Available ipratropi um bromide 42 mcg (0.06 %) nasal spray USE 2 SPRAY(S) IN EACH NOSTRIL THREE TIMES DAILY NEEDED FOR ALLERGY SYMPTOMS active Not Available Not Available No t [...] 1 TABLET BY MOUTH EVERY 12 HOURS 05/24 completed Not Available Not Available Not Available amoxicill in 875 mg-potass ium clavulana te 125 mg tablet TAKE 1 TABLET BY MOUTH EVERY 12 HOURS 12/30 completed Not Available Not Available Not Available escitalop lacey 10 mg tablet Take 1 tablet by mouth once daily 2024 active Not Available Not Available Not Avai lable cyclobenz aprine 5 mg tablet TAKE 1 [...] Not Available Not Available No t Available OneTouch Verio test strips USE 1 STRIP TO CHECK GLUCOSE ONCE DAILY active Not Available Not Available No t Available Eliquis 5 mg tablet TAKE 1 TABLET BY MOUTH TWICE DAILY active Not Available Not Available No t Available Spiriva Respimat 2.5 mcg/actua tion solution for inhalatio n INHALE 2 SPRAY(S) BY MOUTH ONCE DAILY active Not Available Not Available No t Available OneTouch Verio Flex Start kit use to test blood sugar one time daily DX E11.9 2024 active Not Available Not Available Not Avai lable OneTouch Verio Flex Meter USE TO CHECK BLOOD SUGARS DAILY active Not Available Not Available No t Available OneTouch Delica Plus Lancet 33 gauge USE 1 LANCET TO CHECK GLUCOSE ONCE DAILY active Not Available Not Available No t Available Breztri Aerospher e 160 mcg-9mcg- 4.8mcg/ac tuation HFA aerosol inhaler INHALE 2 PUFFS TWICE DAILY active Not Available Not Available No t Available Ozempic 1 mg/dose (4 mg/3 mL) subcutane ous pen injector inject 1 mg every week 2024 active Not Available Not Available Not Avai lable Wegovy 0.25 mg/0.5 mL subcutane ous pen injector INJECT 1 DOSE (0.25MG) SUBCUTAN EOUSLY ONCE A WEEK 06/14 completed Not Available Not Available Not Available Paxlovid 300 mg (150 mg x 2)-100 mg tablets in a dose pack 07/26 completed Not Available Not Available Not Available Paxlovid 150 mg-100 mg tablets in a dose pack (Moderate Renal Dose) Take by oral route. Take two 150 mg and one 100 mg tablet twice daily for five days 07/26 completed Not Available Not Available Not Available Ozempic 0.25 mg or 0.5 mg (2 mg/3 mL) subcutane ous pen injector INJECT 0.5MG WEEKLY 2024 active Not Available Not Available Not Alireza caballero Vitals Date Recorded Body height Body mass index (BMI) Body weight Heart rate Body temperature Oxygen saturation Oxygen saturation in Arterial blood by Pulse oximetry Systolic And Diastolic Provider Name and Address Organization Details Last Updated DateTime 5 177.8 cm 36.2 kg/m2 810445. 28 g 54 /min 97 [degF] 84 % 84 % 138/84 mm[Hg] [facility] [employer] [facility] 5 12:18:02 Date Recorded Heart rate Oxygen saturation Oxygen saturation in Arterial blood by Pulse oximetry Body temperature Systolic And Diastolic Provider Name and Address Organization Details Last Updated DateTime 5 65 /min 95 % 95 % 97 [degF] 118/68 mm[Hg] [employer] [facility] 5 14:23:29 Date Recorded Body height Body mass index (BMI) Body weight Heart rate Body temperature Oxygen saturation Oxygen saturation in Arterial blood by Pulse oximetry Systolic And Diastolic Provider Name and Address Organization Details Last Updated DateTime 4 177.8 cm 37.2 kg/m2 886999. 42 g 69 /min 97 [degF] 91 % 91 % 122/84 mm[Hg] [facility] 4 15:05:15 Date Recorded Body height Body mass index (BMI) Body weight Heart rate Body temperature Oxygen saturation Oxygen saturation in Arterial blood by Pulse oximetry Systolic And Diastolic Provider Name and Address Organization Details Last Updated DateTime 5 177.8 cm 36.9 kg/m2 073803. 24 g 68 /min 97 [degF] 95 % 95 % 122/74 mm[Hg] [facility] 5 12:12:20 Date Recorded Pain severity - 0-10 verbal numeric rating [Score] - Reported Provider Name and Address Organization Details Last Updated DateTime 09/09/2024 0 Caryn Macias RN [facility] 09/09/2024 12:20:54 Date Recorded Body height Body mass index (BMI) Body weight Heart rate Body temperature Oxygen saturation Oxygen saturation in Arterial blood by Pulse oximetry Systolic And Diastolic Provider Name and Address Organization Details Last Updated DateTime 4 177.8 cm 35.9 kg/m2 363679. 09 g 67 /min 97 [degF] 96 % 96 % 120/86 mm[Hg] VALERIA Dugan [facility] 4 12:14:36 Social History Question Answer Notes LastModified by Organization Details LastModified Time Tobacco Smoking Status Former Smoker Not Available [facility] 01/29/2023 09:12:54 Do You Have An Advance Directive? No Info Given Previously [email or web address] Information not available 09/09/2024 Are You Blind Or Do You Have Difficulty Seeing? No [id number] Information not available 01/29/2023 In The 14 Days Before Symptom Onset, Have You Had Close Contact With A Laboratory-conf irmed COVID-19 While That Case Was Ill? No [id number] Information not available 01/29/2023 In The 14 Days Before Symptom Onset, Have You Had Close Contact With A Person Who Is Under Investigation For COVID-19 While That Person Was Ill? No [id number] Information not available 01/29/2023 Are You Deaf Or Do You Have Serious Difficulty Hearing? Yes [email or web address] Information not available 08/26/2023 What Type Of Diet Are You Following? REGULAR [id number] Information not available 01/29/2023 Have There Been Any Changes To Your Family Or Social Situation? No [email or web address] Information not available 08/26/2023 What Is The Fluoride Status Of Your Home? Fluoridated [id number] Information not available 01/29/2023 When Did You Quit Smoking? 16+yearssincelast cigarette [id number] Information not available 01/29/2023 Are There Any Guns Present In Your Home? Yes [id number] Information not available 01/29/2023 Do You Use Insect Repellent Routinely? No [email or web address] Information not available 08/26/2023 Where Do You Live? [facility] [email or web address] Information not available 08/26/2023 Guns Present In The Home? Yes [email or web address] Information not available 08/26/2023 Are You Able To Care For Yourself? Yes [email or web address] Information not available 08/26/2023 Are You Blind Or Do Yo Have Difficulty Seeing? No [email or web address] Information not available 08/26/2023 Are You Deaf Or Do You Have Serious Difficulty Hearing? Yes Has Hearing Aids [email or web address] Information not available 08/26/2023 Live Alone Of With Others? With Others [email or web address] Information not available 08/26/2023 Do You Have A Medical Power Of Drug Enforcement Agent? No [email or web address] Information not available 08/26/2023 What Was The Date Of Your Most Recent Tobacco Screening? 09/09/2024 [email or web address] Information not available 09/09/2024 Do You Have Any Pets? No [email or web address] Information not available 08/26/2023 What Is Your Relationship Status? [email or web address] Information not available 08/26/2023 Do You Use Your Seat Belt Or Car Seat Routinely? Yes [id number] [id number] Information not available 01/29/2023 Do You Have Smoke And Carbon Monoxide Detectors In Your Home? Yes [id number].[id number] [id number] Information not available 01/29/2023 At What Age Did You Start Smoking Tobacco? 22 Quit In 2000 [id number] [id number] Information not available 01/29/2023 Are You Passively Exposed To Smoke? No [email or web address] Information not available 08/26/2023 Are There Any Smokers In Your House? No [email or web address] Information not available 08/26/2023 How Much Tobacco Do You Smoke? 1 PPD MIGRATION.[id number] [id number] Information not available 01/29/2023 Do You Use Sunscreen Routinely? Yes [id number] [id number] Information not available 01/29/2023 Have You Recently Traveled Abroad? No [id number] Information not available 01/29/2023 Do You Have Difficulty Walking Or Climbing Stairs? Yes Uses A Cane [email or web address] Information not available 09/09/2024 Sex: Unknown Functional Status Question Answer Note LastModified by NeoRe[employer] ion Details LastModified Time What is your level of alcohol consumption? None [email or web address] Information not available 09/09/2024 Do you or have you ever used smokeless tobacco? Never used smokeless tobacco [id number] Information not available 01/29/2023 Do you have transportation difficulties? No [id number] Information not available 01/29/2023 Are you able to walk independently without assistance or assistive devices? YESASSIST uses a cane Information not available 08/26/2023 Do you have difficulty doing errands alone? No [id number] Information not available 01/29/2023 Are you able to care for yourself independently? Yes [id number] Information not available 01/29/2023 Do you have difficulty dressing, bathing, grooming, or toileting? No [id number].[id number] Information not available 01/29/2023 Do you or have you ever used e-cigarettes or vape? Never used electronic cigarettes [id number] Information not available 01/29/2023 What is your exercise level? Occasional [id number].[id number] Information not available 01/29/2023 Mental Status Question Answer Note LastModified by Movaya[employer] ion Details LastModified Time Do you have difficulty concentrating, remembering or making decisions? No [id number] Information not available 01/29/2023 Family History Nothing Reported Notes:Mother 69 fro m ITP and complications following the splenectomy Father 83 from Cancer of the Lung Two brothers both frin DM, ASHD, and Atrial Fibrillation and renal complications Three sisters all living each has DM and HTN Medical History Condition Response BLINDNESS N NERVE DISEASE N RHEUMATIC FEVER N BLADDER PROBLEMS N KIDNEY STONES N MRSA N OTHER # 1 N [...] INSOMNIA N HIGH CHOLESTEROL / HYPERLIPIDEMIA N HYPERTHYROIDISM N EYE PROBLEMS N EDEMA N CHRONIC PAIN SYNDROME N HYPOTHYROIDISM N CONSTIPATION N CAROTID BLOCKAGE N BACK / NECK PROBLEMS N HAVE YOU BEEN HOSPITALIZED OR SEEN IN [facility] IN THE PAST YEAR ? N ATHEROSCLEROSIS N BREAST PROBLEMS N DIALYSIS N ECZEMA N OSTEOPOROSIS N ARTHRITIS N NO SIGNIFICANT PAST MEDICAL HISTORY N APPENDICITIS N DIABETES, TYPE N BAD TEETH N ENT N HEARTBURN / REFLUX N AUTISM SPECTRUM DISORDER (ASD) N HEPATITIS / LIVER DISEASE N GOUT N SLEEP DISORDER N ALZHEIMER'S DISEASE N Brain Problems N HERPES N DEMENTIA N SEIZURES/EPILEPSY N HEADACHES/MIGRAINES N VASCULAR DISEASE N PACEMAKER N Blood Disorder N DIZZINESS N KIDNEY DISEASE N HEART DISEASE/HEART PROBLEMS N MULTIPLE SCLEROSIS N CARDIAC ARRHYTHMIA N CANCER: SPECIFY N Gall Stones N ATRIAL FIBRILLATION N PULMONARY EMBOLISM N AUTOIMMUNE DISEASE N Immunizations Vaccine Type Date Status Note Provider Nam e and Address Organization Details Recorded Time pneumococcal polysaccharide PPV23 1 completed Katty stephens [facility] 08/26/2023 14:38:26 Influenza, high-dose, quadrivalent, PF 3 completed Kattyjyoti stephens, [facility] 08/26/2023 16:00:55 Influenza, split virus, trivalent, preservative 4 completed Not Available [facility] 01/29/2023 09:21:35 Influenza, split virus, trivalent, preservative 3 completed Not Available [facility] 01/29/2023 09:21:35 influenza, unspecified formulation 2 completed Not Available [facility] 01/29/2023 09:21:35 COVID-19, mRNA, LNP-S, PF, 30 mcg/0.3 mL dose 2 completed Not Available [facility] 01/29/2023 09:21:35 Influenza, split virus, quadrivalent, preservative 1 completed Not Available [facility] 01/29/2023 09:21:35 COVID-19, mRNA, LNP-S, PF, 30 mcg/0.3 mL dose 1 completed Not Available [facility] 01/29/2023 09:21:36 SARS-COV-2 (COVID-19) vaccine, UNSPECIFIED 1 completed Not Available [facility] 01/29/2023 09:21:36 SARS-COV-2 (COVID-19) vaccine, UNSPECIFIED 1 completed Not Available [facility] 01/29/2023 09:21:36 Influenza, high-dose, quadrivalent, PF 0 completed Not Available [facility] 01/29/2023 09:21:36 Influenza, high-dose, trivalent, PF 0 completed Not Available [facility] 01/29/2023 09:21:36 Influenza, high-dose, trivalent, PF 8 completed Not Available [facility] 01/29/2023 09:21:37 Influenza, high-dose, trivalent, PF 7 completed Not Available [facility] 01/29/2023 09:21:37 Influenza, split virus, quadrivalent, PF 6 completed Not Available [facility] 01/29/2023 09:21:37 Influenza, split virus, quadrivalent, preservative 5 completed Not Available [facility] 01/29/2023 09:21:37 Pneumococcal conjugate PCV 13 5 completed Not Available [facility] 01/29/2023 09:21:37 Influenza, high-dose, trivalent, PF 4 completed Odin Alex MD [address] [facility], [facility] [address], [place], [address], [facility] 09/09/2024 12:50:45 Past Encounters Encounter ID Performer Location Encounter Start Date Encounter Closed Date Diagnosis/Indication Diagnosis SNOMED-CT Code Diagnosis ICD10 Code Diagnosis IMO Codes Diagnosis Note [id number] Odin Alex MD [facility] Internal [place] [address] [place] [address] y , [place] [address] 05/15/2021 00:00:00 05/15/2021 13:03:34 [id number] Odin Alex MD [facility] Internal Med [facility] [address] [facility], [facility] [address] [place] [address] 08/01/2021 00:00:00 08/01/2021 12:38:03 [id number] Odni Alex MD [facility] [place] [address] [place] [address] y , [place] [address] 11/27/2021 00:00:00 11/27/2021 15:08:49 [id number] Odin Alex MD [facility] [place] [address] , [place] [address] 03/26/2022 00:00:00 03/26/2022 15:38:17 [id number] Odin Alex MD [facility] [place] [address] [place] [address] y , [place] [address] 05/31/2022 00:00:00 05/31/2022 11:59:19 [id number] Odin Alex MD [facility] Internal [place] [address] [facility] [place] [place] [address] 07/26/2022 00:00:00 07/26/2022 12:34:00 [id number] Odin Alex MD [facility] Internal [place] [address] [facility] [place] [place] [address] 12/13/2022 00:00:00 12/13/2022 15:11:30 [id number] Odin Alex MD [facility] Internal [place] [address] [facility] [place] [place] [address] 03/28/2023 14:54:06 03/28/2023 15:35:24 Benign essential hypertension 2420313 I10 Hypercholesterolemia 136 84749 E78.00 Obstructiv e sleep apnea syndrome 17216483 G47.33 Gastroesop hageal reflux disease 592925187 K21.9 Obese class II 484477831 1 68296 E66.9 Atrial fibrillation 4943 6004 I48.91 Disorder of prostate 302 62525 N42.9 [id number] Odin Alex MD [facility] Internal [place] [address] [place] [address] y , [place] [address] 08/26/2023 14:15:37 08/26/2023 15:31:19 Adult health examination 979846322 Z00.00 Screening for disorder 469956841 Z13.9 Benign ess ential hypertension 8101765 I10 Atrial fibrillation 4943 6004 I48.91 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 43255386 M48.062 Administra tion of influenza vaccine 53840746 Z23 [id number] Odin Alex MD [facility] Internal [place] [address] [place] [address] [place] [address] 09/23/2023 14:20:04 09/23/2023 15:01:03 Leukocytosis 731502317 D72.667 [id number] Odin Alex MD [facility] Internal Med [facility] [address] [facility], [facility] [place] [address] 10/16/2023 14:26:42 10/16/2023 14:57:58 Cellulitis of toe of right foot [id number] 5333019 L03.460 [id number] Odin Alex MD [facility] Internal Med [facility] [address] [address] 12/30/2023 14:41:53 12/30/2023 15:30:52 Benign essential hypertension 3166903 I10 Atrial fibrillation 4943 6004 I48.91 Hypercholesterolemia 136 97013 E78.00 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 [facility] [place] [address] 04/27/2024 14:44:48 04/27/2024 15:35:58 Benign essential hypertension 1129280 I10 Atrial fibrillation 4943 6004 I48.91 Anxiety 16451676 F41.9 Chronic ob structive pulmonary disease 56368735 J44.9 Gastroesop hageal reflux disease 042232935 K21.9 Hypercholesterolemia 136 47170 E78.00 Obese class II 490423228 1 22830 E66.9 Disorder of prostate 302 34109 N42.9 [id number] Odin Alex MD [facility] Internal Med [address] [facility] [place] [address] 09/09/2024 12:06:53 09/09/2024 14:13:29 Adult health examination 555660260 Z00.00 Screening for disorder 873024625 Z13.9 Administra tion of influenza vaccine 44792457 Z23 Benign ess ential hypertension 6074367 I10 Atrial fibrillation 4943 6004 I48.91 Chronic ob structive pulmonary disease 52291435 J44.9 Hypercholesterolemia 136 76837 E78.00 Obese class II 825140919 1 76046 E66.9 Hyperglycemia 46122280 R 73.9 [id number] Odin Alex MD [facility] [place] [facility] [address] [facility] [address] [place] [address] 01/11/2025 11:54:22 01/11/2025 12:52:58 Coronary arteriosclerosis 75039127 I25.10 Atrial fibrillation 4943 6004 I48.91 Benign ess ential hypertension 1602451 I10 Chronic ob structive pulmonary disease 03852634 J44.9 [id number] Odin Alex MD [facility] [place] [facility] [address] [facility] [address] [place] [address] 02/10/2025 14:15:48 02/10/2025 14:46:13 Coronary arteriosclerosis 60235284 I25.10 Hypercholesterolemia 136 83305 E78.00 Chronic ob structive pulmonary disease 64965025 J44.9 Atrial fibrillation 4943 6004 I48.91 Essential hypertension 85291631 I10 [id number] Odin Alex MD [facility] Internal Med [place] [address] [facility], [place] [address] [place] [address] 05/24/2025 11:59:46 05/24/2025 12:50:34 Chronic obstructive pulmonary disease 70726387 J44.9 Atrial fibrillation 4943 6004 I48.91 Coronary arteriosclerosis 67561139 I25.10 Essential hypertension 30836632 I10 Hypercholesterolemia 136 12308 E78.00 Obese class II 681928297 1 39804 E66.9 Health Concerns Section Related Observation LastModified by Organization Detai ls LastModified Time None Recorded Concern Status LastModified by Organization Details LastModified Time None Recorded Advance Directives Directive N: Info given previously Payers Insurance Date Sequence Insurance Name Policy Number Policy Richards Covered Member ID Richards Member ID Guarantor Name 05/23/2025 1 [employer] (MEDICARE REPLACEMENT/ ADVANTAGE - PPO) [id number] Mesfin Russ [id number] Mesfin Russ Notes Date Note Type Note Provider Name and Address Organization Details Recorded Time text/html Patient Name: Mesfin RussDate Of Service: Friday ( 04.27.2024 ): 1945 [...] Systemic Symptoms:none Medication Reconciliation: from medication list. [id number]: Echocardiogram demonstrated an ejection fraction of approximately [...] Succinate Er. Rate control: controlled ventricular response [id number] Criteria: hypertension, Age > 75 and and [...] offered to be evaluated and instructed by business associate on weight loss diet. Active Medication ListMethotrexate [...] MG One Tablet At Diner Vaccination and Zglhamyoapug9522-90 Josaxwhda1933-12 Covid Nlwrfe8304-68 Prevnar 13 Sv8663-45 Pneumovax Surgical Zhadqru6626-84 Distal Phalanx Amputation Rt. 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 04/27/2024 15:32:14 4 text/html Patient Name: Mesfin [...] Systemic Symptoms:none Medication Reconciliation: from medication list. [id number]: Echocardiogram demonstrated an ejection fraction of approximately [...] Succinate Er. Rate control: controlled ventricular response [id number] Criteria: Age > 75 for embolic phenomenon. [...] offered to be evaluated and instructed by business associate on weight loss diet. Active Medication ListMethotrexate [...] PREVNAR 13 GC PREVNAR 20 Needed(X) 2021-08 [facility] Pfaldub6422-70 Distal Phalanx Amputation Rt. Second Jjn2704-18 Left Mowfvjiv1806-99 Right Iwrzxzka5928-90 Right Inguinal Brrfml0838-45 Pilonidal Cyst times 2 Preventative Testing( ) 05/18/2024 Albumin 4.4 G/DL( ) 05/18/2024 PSA 3.2 NG/ML 05/18/2026( ) 03/05/2024 CT Thorax( ) 01/20/2024 HAIC 6.9 % H( ) 05/08/2015 Colonoscopy (10 Years) 05/08/2025 Social HistorySmoke one pack daily for approximately 20 years and quit in 2000Drinks sociallyRetired high school computer science teacher Family HistoryMother 69 from ITP and complications following the splenectomyFather 83 from Cancer of the LungTwo brothers both frin DM, ASHD, and Atrial Fibrillation and renal complicationsThree sisters all living each has DM and HTN Odin Alex MD [address] [facility], [facility] [address], [place], [address], [facility] 09/09/2024 12:51:50 5 text/html Patient Name: Mesfin [...] Systemic Symptoms:none Medication Reconciliation: from medication list. [id number]: Echocardiogram demonstrated an ejection fraction of approximately [...] offered to be evaluated and instructed by business associate on weight loss diet. Active Medication ListMethotrexate [...] PrnAlbuterol Sulfate Hfa 90 UG AEROSOL, METERED C8pJvcphefkc 25 MG-320 MG (TABLET - ORAL) DailyMetoprolol Succinate Er 100 MG One Tablet At DinerPlavix 75 MG TABLET, FILM COATED Once Daily Vaccination and Immunization( ) 2024-08 INFLUENZA( ) 2011-08 PNEUMOVAX(X) 2015-01 PREVNAR 13 GC PREVNAR 20 Needed(X) 2020- COVID [facility] Surgical Mmbdfbg1059-58 LAD Rtygn6977-50 Distal Phalanx Amputation Rt. 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 Arm 118/68Pulse: Sitting 65 /min and RegularRespiratory Rate: 16 Chief Complaint: Addressed in HPI Problems or conditions discussed in the HPI were the only ones reviewed during the encounter.Only social and family history addressed in the HPI were reviewed during this encounter. Attendant(s): WifeConstitutional and Systemic Symptoms:none, night sweats, anorexia, weight loss, weight gain, generalized fatigue and myalgia Medication Reconciliation: from medication list. [id number]: Echocardiogram demonstrated an ejection fraction of approximately [...] 50% stenosis in the right coronary artery 02-06-2025: CT scan of brain, chest abdomen and pelvis and cervical spine all negative for any fracture or any evidence of any acute hemorrhage as a result of a fall on anticoagulants. History of Present Illness #1. Coronary Artery Disease: There has been no change in frequency - duration - intensity in frequency, duration or intensity of chest pain. Other Complaints: none The frequency of anginal attacks is none at all. Additional Symptoms: none Therapy reviewed regarding cardiovascular management includes Eliquis, Furosemide, Metoprolol Succinate Er, Plavix, Pravachol and Valsartan #2. Essential Hypertension: Stage: Stage II Interval Neurological Complaints no headaches, dizziness, weakness, visual changes, ataxia, aphasia and apraxia. No shortness of breath, orthopnea or cardiovascular symptoms. No other symptoms related to end organ damage. Pressure has been under excellent control. Currently normal. No other end organ symptoms or findings. Therapy reviewed regarding management of hypertension and includes salt restriction and Furosemide, Metoprolol Succinate Er and Valsartan. #3. Type II Hypercholesterolaemia: Currently taking medication and tolerating well. No interval complaints of any muscle pain or arthralgia. No significant liver changes with medications. Last lipid panel: fair control. Therapy reviewed regarding treatment of cholesterol management and include diet and Pravachol. #4. Atrial Fibrillation: Type: Persistent with recurrent episodes lasting longer than 7 days. Further classification: Non-valvular. Associated history of essential hypertension. No attending hx of any shortness of breath, palpitations, syncopal or neurological symptoms. Current medications: Metoprolol Succinate Er. Rate control: controlled ventricular response [id number] Criteria: Age 65-74 for embolic phenomenon. Anticoagulation: Eliquis #5. COPD: Hx of Emphysema currently stable. No change in sputum production, color or consistency. No fever, chills, weight loss or other constitutional symptoms. Gold Scale: Severe. MRC Scale: normal walking. Smoking: not currently smoking Current medications: Albuterol Sulfate Hfa and Spiriva Using nebulizer Treatments: No. Uses does not use supplemental oxygen#6. Multiple contusions about the right shoulder and arm secondary to a recent fall. No loss of consciousness. No change in her overall functional status. . It is is doing well. Scheduled to see pulmonology next week. Active Medication ListMethotrexate 2.5 GM /100 ML [...] PrnAlbuterol Sulfate Hfa 90 UG AEROSOL, METERED A2pAqkuwacum 25 MG-320 MG (TABLET - ORAL) DailyMetoprolol Succinate Er 100 MG One Tablet At DinerPlavix 75 MG TABLET, FILM COATED Once Daily Vaccination and Immunization( ) 2024-08 INFLUENZA( ) 2011-08 PNEUMOVAX(X) 2015-01 PREVNAR 13 GC PREVNAR 20 Needed(X) 2020- COVID [employer] [facility] Hcuxkig3397-56 LAD Ltiim2598-11 Distal Phalanx Amputation Rt. 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 This represents approximately a 2.0% change in weight. Weight change attributable to lifestyle changes. Vital Signs:Blood Pressure: Sitting Rt. Arm 122/74Pulse: Sitting 68 /min and RegularRespiratory Rate: 16Height 70 in or 1.8 mWeight 257 lb or 116.6 kgBMI 36.9Temperature: 97 F or 36.1 CPulse Oximetry: 95 % at rest on no oxygen Chief Complaint: Addressed in HPI Problems or conditions discussed in the HPI were the only ones reviewed during the encounter.Only social and family history addressed in the HPI were reviewed during this encounter. Attendants(s) + WifeConstitutional and Systemic Symptoms:none Medication Reconciliation: from medication list. [id number]: Echocardiogram demonstrated an ejection fraction of approximately [...] 50% stenosis in the right coronary artery 02-06-2025: CT scan of brain, chest abdomen and pelvis and cervical spine all negative for any fracture or any evidence of any acute hemorrhage as a result of a fall on anticoagulants. History of Present Illness #1. Coronary Artery Disease: There has been no change in frequency - duration - intensity in frequency, duration or intensity of chest pain. Other Complaints: none The frequency of anginal attacks is several times per week. Additional Symptoms: none Therapy reviewed regarding cardiovascular management includes Eliquis, Furosemide, Metoprolol Succinate Er, Plavix and Pravachol #2. Essential Hypertension: Stage: Stage I Interval [...] and Furosemide, Metoprolol Succinate Er and Valsartan. #3. Atrial Fibrillation: Type: Paroxysmal with recurrent episodes lasting less than 7 days. Further classification: Non-valvular. Associated history of essential hypertension. No attending hx of any shortness of breath, palpitations, syncopal or neurological symptoms. Current medications: Metoprolol Succinate Er. Rate control: controlled ventricular response [id number] Criteria: Age > 75 for embolic phenomenon. Anticoagulation: Eliquis #4. Type II Hypercholesterolaemia: Currently taking medication and tolerating well. No interval complaints of any muscle pain or arthralgia. No significant liver changes with medications. Last lipid panel: fair control. Therapy reviewed regarding treatment of cholesterol management and include diet and Pravachol. #5. COPD: Hx of Emphysema currently stable. There has been no interval change in exercise tolerance an shortness of breath. No change in sputum production, color or consistency. No fever, chills, weight loss or other constitutional symptoms. Gold Scale: Moderate. MRC Scale: only strenuous activity. Smoking: not currently smoking Current medications: Albuterol Sulfate Hfa, Singulair and Spiriva Using nebulizer Treatments: No. Uses does not use supplemental oxygen #6. Hx of obesity. Currently Class 2 Obesity [...] offered to be evaluated and instructed by business associate on weight loss diet. Active Medication ListMethotrexate [...] PrnAlbuterol Sulfate Hfa 90 UG AEROSOL, METERED T0xTkypfiurk 25 MG-320 MG (TABLET - ORAL) DailyMetoprolol Succinate Er 25 MG TABLET, FILM COATED, EXTENDED RELEASE One Tablet At DinerPlavix 75 MG TABLET, FILM COATED Once Daily Adverse Drug Reactions ReviewedNo Known Adverse Drug Reactions! Vaccination and Immunization ( ) 2024-08 INFLUENZA( ) 2011-08 PNEUMOVAX(X) 2015-01 PREVNAR 13 GC PREVNAR 20 Needed(X) 2021-08 COVEvergreen EnterprisesImmunizations and Vaccinations Discussed and Implemented if feasible In the Office. Else referred to pharmacies. Surgical History 2024-10 LAD Cpegn1469-83 Distal Phalanx Amputation Rt. 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 teacher Family HistoryMother 69 from ITP and complications following the splenectomyFather 83 from Cancer of the LungTwo brothers both frin DM, ASHD, and Atrial Fibrillation and renal complicationsThree sisters all living each has DM and HTN TEST RESULT RANGE UNITSBASIC METABOLIC PANEL Date: 11/04/2024SODIUM 139 137-145 MMOL/LPOTASSIUM 4.8 3.5-5.1 MMOL/LGLUCOSE 89 70-99 MG/DLBUN 41 8-19 MG/DLCREATININE 1.40 0.66-1.25 MG/DLGFR 49CBC/COMPLETE BLD COUNT W/DIFF Date: 11/04/2024WHITE BLOOD CELLS 13.2 4.2-10.8 X10'3/ULHEMOGLOBIN 15.2 13.2-17.0 G/DLHEMATOCRIT 46.2 39.3-50.0 %PLATELETS 240 150-400 X10'3/ULLIPID PANEL Date: 11/04/2024HOLESTEROL 158 140-199 MG/DLTRIGLYCERIDES 176 0-150 MG/DLHDL CHOLESTEROL 53 40- MG/DLLDL CHOLESTEROL, CALCULATED 70 0-130 MG/DL Odin Alex MD [address] [facility] [address], [place], [address], [place] [facility] 05/24/2025 12:43:07
--- OUTSIDE RECORDS SUMMARY | 2025-09-19 08:13 | XMS_ITS ---
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 Name Role Phone Shameka Bradford Unavailable [phone] Reason for Referral Not Available Allergies, adverse [...] mplaint [facility] [place], [place], 12/30/2024 Encntr for f/u exam aft trtm t for cond oth than malig neoplmAcute respiratory failure with hypoxia [facility] [place], [place] 12/30/2024 Encntr for f/u exam aft trtm t for cond oth than malig neoplmAcute respiratory failure with hypoxia [facility] [place], [place] 12/30/2024 Encntr for f/u exam aft trtm t for cond oth than malig neoplmAcute respiratory failure with hypoxia Telephone E/M Service; 11-20 min of Medical Discussion (Audio Only) [place], 01/03/2025 Acute respiratory failure with hypoxia Telephone E/M Service; 11-20 min of Medical Discussion (Audio Only) [place], 01/03/2025 Acute respiratory failure with hypoxia Telephone E/M Service; 11-20 min of Medical Discussion (Audio Only) [place], 01/03/2025 Acute respiratory failure with hypoxia Telephone E/M Service; 11-20 min of Medical Discussion (Audio Only) [place], 01/03/2025 Acute respiratory failure with hypoxia Vital Signs Date of Collection Vitals 2024-12-30 12:11:34 Pain Scale - 7.0 {sc ore} 2025-01-03 09:21:47 BP Diastolic - 54.0 mm[Hg]BP Systolic - 134.0 mm[Hg]O2 % BldC Oximetry - 93.0 % Social History Sex Male History of Procedures Procedures Service Procedure code Service date Servicing provider Phone# [facility] Day [facility]ch [address]20 2024-12-30 No Data Available No Data Avail able Medrec Completed within 30 Days of Discharge 2024-12-30 No Data Available No Data Availa ble Pain Assessment - Pain Documented 1125F 2024-12-30 No Data Available No Data Availa ble Telephone E/M Service; 11-20 min of Medical Discussion (Audio Only) [id number] 2025-01-03 No Data Available No Data Availa [...] Plans 2024-12-30 12:11:34 Pt went to the [facility] due to breathing issues. Was discharged home. Advised to f/u with PCP. 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 Advised pt to call to reach our staff.Needs/concerns for [facility] provider to address during PD visit [...] [facility], and no questions or concerns regarding these.
--- OUTSIDE RECORDS SUMMARY | 2025-09-19 08:13 | XMS_ITS | Patient Health Record ---
Author Organization [facility] Address [address] [place], [place] [id number] Care Team Providers Care [employer] Pe Teacher Name Role Phone DANNY SALAZAR Unavailable [phone] Odin Alex Unavailable Unavailable Allergies No Known [...] Medicationterbinafine 250 MG Oral Tablet *Reorder from Highlight for eRx and Interaction Alerts* 04/12/2021 Active Eliquis Active Pravastatin Sodium 40 MG TAKE 1 TABLET BY MOUTH ONCE DAILY Oral; Duration: 90 Days Active Albuterol Sulfate HFA 108 (90 Base) MCG/ACT INHALE 2 PUFFS BY MOUTH EVERY 6 HOURS NEEDED Inhalation; Duration: 25 Days Active Metoprolol Succinate ER 25 MG Oral; Duration: 90 Days Active Ipratropium [place] 0.06 % Nasal; Duration: 14 Days Active Valsartan-hydroCHL OROthiazide 320-25 MG Oral; Duration: 90 Days Active Immunizations Vaccine Route Administration Date Status Comme nts Influenza, high dose seasonal Unknown 10/30/2023 Admini stered Vital Signs Height-cm 185.42 cm 09/08/2025 Weight-kg 102.06 kg 05/05/2025 Height 73.00 in 09/08/2025 Weight 225 lbs 05/05/2025 BMI 29.68 kg/m2 05/05/2025 Encounters Encounter Location Date Provider Diagnosis [facility] [address] [place] [address] [id number] 07/07/2025 DANNYTIM SALAZAR 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 ; Pain in right foot M79.671 ; Atherosclerosis of [place] arteries of extremities with intermittent claudication, bilateral legs I70.213 and Onychomycosis B35.1 [facility] [address] [place] [address] [id number] 09/08/2025 DANNY SALAZAR 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 ; Pain in right foot M79.671 ; Atherosclerosis of [place] arteries of extremities with intermittent claudication, bilateral legs I70.213 and Onychomycosis B35.1 [facility] [address] [place] [address] [id number] 02/10/2025 DANNYTIM SALAZAR 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 ; Pain in right foot M79.671 ; Atherosclerosis of [place] arteries of extremities with intermittent claudication, bilateral legs I70.213 and Onychomycosis B35.1 [facility] [address] [place] [address] [id number] 02/24/2025 DANNYTIM SALAZAR 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 ; Pain in right foot M79.671 ; Atherosclerosis of [place] arteries of extremities with intermittent claudication, bilateral legs I70.213 and Onychomycosis B35.1 [facility] [address] [place] [address] [id number] 05/05/2025 DANNY SALAZAR 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 02/24/2025 Atherosclerosis of [place] arteries of extremities with intermittent claudication, bilateral legs (ICD-10 - I70.213) 05/05/2025 Atherosclerosis of [place] arteries of extremities with intermittent claudication, bilateral legs (ICD-10 - I70.213) 07/07/2025 Atherosclerosis of [place] arteries of extremities with intermittent claudication, bilateral legs (ICD-10 - I70.213) 09/08/2025 Atherosclerosis of [place] arteries of extremities with intermittent claudication, bilateral legs (ICD-10 - I70.213) 07/07/2025 Onychomycosis (ICD-10 - B35.1) All corns or calluses, as described in the note above, were cut and pared utilizing a #15 blade. 05/05/2025 Onychomycosis (ICD-10 - B35.1) All corns or calluses, as described in the note above, were cut and pared utilizing a #15 blade. 09/08/2025 Onychomycosis (ICD-10 - B35.1) All corns [...] Preventing Falls: Care Instructions material was published 09/08/2025 Other Nails 1-5 Bilateral were debrided [...] any subungual debris and necrotic tissue removed 05/05/2025 Other Nails 1-5 Bilateral were debrided extensively with nail nippers and emery board, reducing length and girth to pink healthy tissue with any subungual debris and necrotic tissue removed, Preventing Falls: Care Instructions material was printed Plan Of Treatment Next Appt Details Provider Name:DANNY BELLO, 11/15/2025 12:30:00 PM, [address], [place], [place], [id number], Insurance Providers Payer Name Payer Address Payer Phone Subscriber Number Group Number Insured Name Patient Relationship to Insured Coverage Start Date Coverage End Date [employer] [address] [place] [phone] [id number] MESFIN CASTAÑEDA Self - patient is the insured Medical (General) History Medical History History ICD Code Diabetic
--- OUTSIDE RECORDS SUMMARY | 2025-09-19 08:13 | XMS_ITS | Patient Health Record ---
Author Organization 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 Jens Crockett Unavailable [phone] Hugo Dempsey Unavailable Allergies No Known Allergies [...] review and pick correct strength-formulatio n from [employer] options. If intended option is not shown, discontinue and re-order from Quick Search* Active Centrum THERAPEUTIC MULTIPLE VITAMINS WITH MINERALS 1 TAB(S) ORALLY ONCE A DAY *Please review and pick correct strength-formulatio n from [employer] options. If intended option is not shown, [...] Polyneuropathy due to type 2 diabetes mellitus (078405386) Type 2 diabetes mellitus with diabetic polyneuropathy (E11.42) Active confirmed Problem Chronic migraine without aura, non-refractory (disorder) (664540309001000) Migraine without aura, not intractable, without status migrainosus (G43.009) Active confirmed Problem Migraine with aura (4726092) Migraine with aura, not intractable, without status migrainosus (G43.109) Active confirmed Problem Chronic migraine without aura, non-intractable (240384553991417) Chronic migraine without aura, not intractable, without status migrainosus (G43.709) Active confirmed Problem Carpal tunnel syndrome (14034264) Carpal tunnel syndrome, bilateral upper limbs (G56.03) Active confirmed Plan Of Treatment No Information Insurance Providers Payer Name Payer Address Payer Phone Subscriber Number Group Number Insured Name Patient Relationship to Insured Coverage Start Date Coverage End Date [employer] Medicare [address] [place] [address] [id number] Billy Russ Self - patient is the insured 01/01/202 4 Medical (General) History Medical History History ICD Code HLD HTN PAFib COPD CASTRO Lumbar DDD OA DM2 Surgical History Surgery Date(Month/Year) S/p lumbar FLAVIO S/p cataracts S/p pilonidal cyst removal S/p cardiac ablation
--- OUTSIDE RECORDS SUMMARY | 2025-09-19 08:13 | XMS_ITS | Clinical Summary ---
Author Organization [facility] Address 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 This disclosure is being madepursuant to the Care Everywhere program and may not contain all information available regarding this patient. Last updated 18.[facility] Allergies No known active allergies Medications * Be aware that medications may not be up to date on this document. Alwaysverify current medications with the patient. pantoprazole EC (PROTONIX) 40 MG tablet Take 1 (one) tablet by mouth once daily 1 04/03/20 19 Active pravastatin (PRAVACHOL) 40 MG tablet Take 1 (one) tablet by mouth at bedtime Active metoprolol succinate XL 24hr (TOPROL XL) 100 MG tablet Take 25 mg by mouth once daily 11/05/20 20 Active diphenhydrAMIN E (BENADRYL) 25 MG capsule [...] fluticasone propionate (Flonase) 50 MCG/ACT nasal spray [place] 2 (two) sprays into each nostril once daily as needed Active zolpidem (Ambien) 5 MG tablet Take 1 tablet my mouth at night as directed, may repeat x 1 if needed. 2 tablet 03/07/20 23 Active Additional Information Patient not taking.Reason: Patient adjusted, Reported on 08/23/2025 escitalopram (Lexapro) 10 MG tablet 02/23/20 24 Active imiquimod (Aldara) 5 % cream APPLY CREAM TOPICALLY TO FOREHEAD AT NIGHT AND THEN WASH OFF IN THE MORNING FOR 2 WEEKS ON, 2 WEEKS OFF, THEN 2 WEEKS AGAIN 11/03/20 23 Active ALPRAZolam (Xanax) 0.25 MG tablet Take 1 (one) tablet by mouth at bedtime 08/19/20 24 Active naltrexone (Revia) 1.5 MG capsule Take 1 (one) capsule by mouth once daily 08/18/20 24 Active furosemide (Lasix) 40 MG tablet Take 1 (one) tablet by mouth once daily 07/27/20 24 Active Atrovent HFA 17 MCG/ACT inhaler Inhale 2 (two) puffs by mouth 4 times daily 09/06/20 24 Active traZODone (Desyrel) 100 MG tablet Take 1 (one) tablet by mouth at bedtime 11/19/20 24 Active Plavix 75 MG tablet Take 1 (one) tablet by mouth once 11/25/20 24 Active montelukast (Singulair) 10 MG tablet Take 1 tablet by mouth once daily 90 tablet 2 12/24/19 25 Active albuterol HFA (Proventil; Ventolin; Proair) 108 (90 Base) MCG/ACT inhaler INHALE 2 PUFFS BY MOUTH EVERY 6 HOURS NEEDED 18 g 5 03/16/20 25 Active Eliquis 5 MG tablet Take 1 (one) tablet by mouth 2 times daily 07/11/20 25 Active benzonatate (Tessalon) 200 MG capsule Take 1 (one) capsule by mouth 3 times daily as needed for Cough 12/30/19 25 Active EQ Mucus Relief 600 MG tablet Take 1 (one) tablet by mouth every 12 hours 12/26/19 25 Active ipratropium (Atrovent) 0.06 % nasal spray [place] 2 (two) sprays into each nostril at bedtime 04/22/20 25 Active metFORMIN (Glucophage) 500 MG tablet Take 1 (one) tablet by mouth 2 times daily with morning and evening meal 06/27/20 25 Active Semaglutide (OZEMPIC, 1 MG/DOSE, SC) 1 mg by Injection route every 7 days (once a week) 08/19/20 25 Active gabapentin (Neurontin) 100 MG capsule TAKE 1 CAPSULE BY MOUTH ONCE DAILY FOR 3 DAYS THEN TWICE DAILY FOR 3 DAYS THEN THREE TIMES DAILY 01/01/20 24 025 Discontinu ed(List Clean-Up) aspirin (Aspirin) 81 MG chew tablet Take 1 (one) tablet by mouth once daily 11/26/20 24 025 Discontinu ed(List Clean-Up) fluconazole (Diflucan) 100 MG tablet Take 1 (one) tablet by mouth once daily for 10 days 10 tablet 08/24/20 25 025 Active Problems Problem Noted Date Diagnosed Date [...] Eliquis 5 mg twice daily.He has a [id number] score of 2, therefore it is recommended that he remain anticoagulated for thromboprophylaxis. 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 As long as they remain on this medication, an ECG will be performed every 6 months for monitoring. S/P ablation of atrial fibrillation 06/28/2017 Encounters Date Type Department Care Team Description 09/12/2025 Patient Outreach [facility] - Care Coordination [address] [place] [address] Namrata Munoz Outreach Preventive Care 09/06/2025 10:30 AM CDT Office Visit [facility] - ENT [address] [place] [phone] Dinah Leonard, SUPERVISOR RESEARCH KENNEL Dysphagia, unspecified type (Primary Dx); Hoarseness 09/06/2025 Travel 09/02/2025 Telephone [facility] - [facility] [place] [phone] Dinah Leonard, SUPERVISOR [employer]EARCH KENNEL Speech Therapy 08/24/2025 Orders Only [facility] [address] , [address] [phone] Mitzi Ulloa, CAMPUS ADMINISTRATIVE ASSISTANT-FISH HATCHERY ASSISTANT 08/23/2025 9:00 AM CDT Office Visit [facility] [place] [phone] Johnson Jimenez MD Dysphagia, unspecified type (Primary Dx); Cerumen debris on tympanic membrane of both ears; Hoarseness 08/23/2025 Travel 08/15/2025 10:22 AM CDT - 08/15/2025 11:59 PM CDT Hospital Encounter [facility] DI[facility]NOSTIC RAD [address] [place] [address] Johnson Jimenez MD Discharge Disposition: Home or Self Care 07/21/2025 Travel 07/21/2025 Refill [facility] - Pulmonology [address] [facility] [address] [place] [address] Leo Wang MD Refill Request 07/08/2025 Telephone [facility] [address] [place] [address] Louisa Casas, OLYA Appointment (New pt Tony) from Last 3 Months Immunizations Immunization Administration Dates Next Due INFLUENZA VACCINE, TRIV. (AF LURIA, FLUZONE TRIVALENT; 6MO+) (IIV3) 10/21/2014,10/21/2014,10/08/2013,2012 COVID PFIZER BIVALENT 12Y+ 30mcg/0.3ML 11/04/2022 Covid Pfizer primary Monoval ent 12+ yr 0.3ml 03/19/2022 Covid Pfizer primary monoval ent 12+ yr 0.3mL Purple cap 03/18/2022,08/30/2021,02/25/2021,2020,02/04/2021,01/28/2021 FLU VACCINE QUAD IIV4 SPLIT 0.25 ML IM 08/30/2021,10/20/2015,10/20/2015 INFLUENZA [id number], HISTORIC VACCINE 11/04/2022,0 08/30/2021,11/07/2020 INFLUENZA VACCINE 11/04/2022,08/30/2021,11/07/20 INFLUENZA VACCINE, HIGH-DOSE , QUADR. (FLUZONE HIGH-DOSE QUADRIVALENT; 65Y+), 0.7 ML (HD-IIV4) 09/09/2024,10/30/2023,08/26/2023,2019,09/25/2018,09/25/2018,09/09/2017,1 INFLUENZA VACCINE, QUADR. (F LUZONE; FLULAVAL; FLUARIX; AFLURIA QUADRIVALENT; 6MO+), 0.5 ML (IIV4) 10/29/2016,10/29/2016 PNEUMOCOCCAL PCV20 CONJ VAC IM 08/13/2023 PNEUMOCOCCAL PPSV23 09/01/2011 Pneumococcal Pcv13 Conj 01/03/2015,01/03/2015 TDAP (7yrs+) 02/06/2025 Social History Tobacco Use Types Packs/Day Years Used Date Smoking Tobacco: Former Cigarettes 1 20 0 04/12/1981 - 04/12/2001 Smokeless Tobacco: Never Tobacco Cessation:Counseling Given: Not Answered Alcohol Use Standard Drinks/Week Comments Yes 0 (1 standard drink = 0.6 oz pur e alcohol) occ PHQ-2 Answer Date Recorded Patient Health Questionnaire-2 Score 0 08/24/2024 Sex and Gender Information Value Date Recorded Sex Assigned at Male 05/31/2021 11:18 AM CDT Legal Sex Male 10:36 AM SANDFILL OPERATOR SURFACE Gender Identity Male 05/31/2021 11:18 AM CDT Sexual Orientation Straight 05/31/2021 11 :18 AM CDT Last Filed Vital Signs Vital Sign Reading Time Taken Comments Blood Pressure 114/71 08/23/2025 8:44 AM CDT Pulse 80 08/23/2025 8:44 AM CDT Temperature 36.3 C (97.4 F) 12/13/2024 3:36 PM SANDFILL OPERATOR SURFACE Respiratory Rate 20 12/13/2024 3:36 PM SANDFILL OPERATOR SURFACE Oxygen Saturation 96% 12/13/2024 3:36 PM SANDFILL OPERATOR SURFACE room air Inhaled Oxygen Concentration - - Weight 112.7 kg (248 lb 6.4 oz) 08/23/2025 8:44 AM CDT Height 182.9 cm (6') 08/23/2025 8:44 AM CDT Body Mass Index 33.69 08/23/2025 8:44 AM CDT Plan of Treatment Upcoming Encounters Date Type Department Care Team (Late st Contact Info) Description 10/18/2025 10:45 AM SANDFILL OPERATOR SURFACE Office Visit [facility] [place] [address] Johnson Jimenez MD [address] [facility] [address] [place] [address] Health Maintenance Due Date Last Done Comments ZOSTER VACCINE (1 of 2) 1996 Respiratory Syncytial Virus (RSV) Vaccine Pt: or over 60 yrs (1 - 1-dose 75+ series) 2021 DEPRESSION SCREENING 12/01/2024 08/24/2024 MEDICARE AWV CALENDAR YEAR 2024 COVID-19 VACCINE ( season) 2025 11/04/2022, 03/19/2022, 03/18/2022, Additional history exists INFLUENZA VACCINE (#1) 2025 , 10/30/2023, 08/26/2023, Additional history exists DTAP/TDAP/TD VACCINES (2 - Td or Tdap) 02/06/2035 02/06/2025 PNEUMOCOCCAL VACCINE 50+ Completed 023, 01/03/2015, 01/03/2015, [...] Procedure Name Priority Date/Time Associated Diagnosis Comments ID LARYNGOSCOPY,FLEX FIBER,DIAGNOSTIC Routine 08/23/2025 9:52 AM CDT Dysphagia, unspecified type PROC CERUMEN REMOVAL Routine 08/23/2025 9:51 AM CDT Cerumen debris on tympanic membrane of both ears FL ESOPHAGRAM Routine 08/15/2025 11:15 AM CDT Dysphagia, unspecified type from Last 3 Months Results * ID LARYNGOSCOPY,FLEX FIBER,DIAGNOSTIC (08/23/2025 9:52 AM CDT) Narrative Johnson Jimenez MD - 08/23/2025 9:52 AM CDT Johnson Jimenez MD 08/23/2025 10:59 AM Procedure Note Endoscopy Type: Laryngoscopy without stroboscopy [id number] Endoscope: Flexible 4mm Scope Anesthesia: Lidocaine 2% and Neosynephrine 1/2% (nasal) Procedure Details: The patient was sitting upright in a chair with the head in a slightly anterior sniffing position. The topical anesthesia was administered and then adequate time was allowed for an anesthetic effect. The endoscope was passed thru the nasal cavity with the tongue retracted anteriorly. The tip of the endoscope was positioned in the oropharynx which allowed a complete view of the base of tongue, vallecula, pyriform recesses, epiglottis, bilateral true and false vocal folds, the interarytenoid and post cricoid region, and the immediate subglottis. Findings: Increased secretions noted with mucous stuck on the vocal cords, mild erythema of mucosa noted Condition: Stable. Patient tolerated procedure well. Complications: None Dr. Jimenez was present for the entirety of the procedure. Oscar Cerrato MD Otolaryngology- Head and Neck Surgery Resident Johnson Jimenez MD PROCEDURE/MINOR SURGICAL ORD ERABLES Final Result * PROC CERUMEN REMOVAL (08/23/2025 9:51 AM CDT) Narrative Johnson Jimenez MD - 08/23/2025 9:51 AM CDT Johnson Jimenez MD 08/23/2025 11:01 AM Procedure: Binocular Microscopic Removal of Impacted Cerumen Indications: Cerumen impaction obscuring the tympanic membrane. Findings: See main note. Procedure Note: After verbal consent was obtained, the binocular operative microscope was brought into position. An otologic speculum was inserted into the cartilaginous external auditory canal. Cerumen was removed using a combination of cerumen loops, suction, and alligator forceps. There was no bleeding MD Dr. Tony Joy was present for the entirety of the procedure Johnson Jimenez MD PROCEDURE/MINOR SURGICAL ORD ERABLES Final Result * FL Esophagram (08/15/2025 11:15 AM CDT) Anatomical Region Laterality Modality Chest Digital Radiogra phy 08/15/2025 2:54 PM CDT Impressions 08/16/2025 10:45 AM CDT IMPRESSION: Episode of aspiration into the right lower lobe. Mild esophageal dysmotility. > Dictated by Hedge Fund Accountant I, Jennifer Zeng MD have personally reviewed and interpreted this examination/study. > Interpreting Provider: Jennifer Zeng MD on 08/16/2025 10:45 AM Narrative 08/16/2025 10:45 AM CDT PROCEDURE: FL ESOPHAGRAM DATE/TIME OF EXAM: 08/15/2025 2:35 PM CLINICAL INFORMATION: None relevant/not provided if blank. Indication: R13.10: Dysphagia, unspecified type Additional History: COMPARISON: None. TECHNIQUE: Single and double contrast technique. Fluoroscopic and overhead imaging. FLUOROSCOPY DOSE: 24.4 mGy Reference air kerma (ka,r). FINDINGS: An episode of aspiration into the right lower lobe occurred which induce coughing. There is extrinsic impression on the proximal cervical esophagus by osteophytes. Otherwise esophageal contour and caliber are normal. No esophageal mass, ulcer, or stricture is seen. The patient swallowed a 13 mm barium tablet which advanced to the stomach without delay. Motility is decreased, with incomplete clearance of contrast from the esophagus. Minimal gastroesophageal reflux was observed. There is no hiatal hernia. Limited images of the stomach and duodenum are unremarkable. Procedure Note Jennifer Zeng MD - 08/16/2025 PROCEDURE: FL ESOPHAGRAM DATE/TIME OF EXAM: 08/15/2025 2:35 PM CLINICAL INFORMATION: None relevant/not provided if blank. Indication: R13.10: Dysphagia, unspecified type Additional History: COMPARISON: None. TECHNIQUE: Single and double contrast technique. Fluoroscopic and overhead imaging. FLUOROSCOPY DOSE: 24.4 mGy Reference air kerma (ka,r). FINDINGS: An episode of aspiration into the right lower lobe occurred which induce coughing. There is extrinsic impression on the proximal cervicalesophagus by osteophytes. Otherwise esophageal contour and caliber are normal. No esophageal mass, ulcer, or stricture is seen. The patient swallowed a 13mm barium tablet which advanced to the stomach without delay. Motility is decreased, with incomplete clearance of contrast from the esophagus. Minimal gastroesophageal reflux was observed. There is no hiatal hernia. Limited images of the stomach and duodenum are unremarkable. IMPRESSION: Episode of aspiration into the right lower lobe. Mild esophageal dysmotility. > Dictated by Hedge Fund Accountant I, Jennifer Zeng MD have personally reviewed and interpreted this examination/study. > Interpreting Provider: Jennifer Zeng MD on 08/16/2025 10:45 AM Johnson Jimenez MD FLUOROSCOPY ORDERABLES Final Result from Last 3 Months Insurance [employer] MEDICARE ADV AETNA MEDICARE ADV SELF PAY NO INSURANCE Member Subscriber Plan / Payer (Ef fective for All Dates) Name:Mesfin Russ Member ID:Not on file Relation to Subscriber:Not on file Name:MESFIN RUSS Subscriber ID:Not on file (Home) Address: [address] [place] [phone] Payer ID:Not on file Group ID:Not on file Type:Self Pay Address: [place], [place] AETNA MEDICARE ADV SELF PAY NO INSURANCE Member Subscriber Plan / Payer (Ef fective for All Dates) Name:Mesfin Russ Member ID:Not on file Relation to Subscriber:Not on file Name:MESFIN RUSS Subscriber ID:Not on file (Home) Address: [address] [place] [phone] Payer ID:Not on file Group ID:Not on file Type:Self Pay Address: [place], [place] * Guarantor: MARIA D RUSS Account Type Relation to Patient Date of Phone Billing Address Personal/Family Spouse Care Teams 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 [address] [facility] [address] [place] [phone] Pulmonary Disease 07/21/25
--- NOTE | 2025-10-24 01:34 | WPDPFTINT ---
PFT Procedure Performed PFT Procedure Performed Spirometry with Pre/Post Bronchodilator Plethysmography (Lung Vol) Diffusing Cap (DLCO) Flow Vol Loop PFT Interpretation DOS: 09/19/2025 REQUESTING: Mckenzie Gilliam MD REASON FOR TESTING: PULMONARY FUNCTION TESTS Results are reliable and reproducible. Repeatability of spirometry FEV1 maneuver pre and post bronchodilator is Grade A. [place]: GLI 2012 reference equations were used. Spirometry: The pre-bronchodilator FEV1 is 0.92 L, 30%. The pre-bronchodilator FVC is 2.41 L, 57%. The FEV1/FVC ratio is 38%. After bronchodilator, the FEV1 is 1.18 L, +29. After bronchodilator, the FVC is 2.81 L, + 17. The FEV1/FVC ratio is 42%. Lung volumes: The total lung capacity is 8.04 L, 108%. The residual volume is 4.99 L, 182%. The RV/TLC is 62%. The functional residual capacity is 6.06 L, 149%, increased. Airway resistance is increased. Diffusion: DLCO is 10.4, 42%. The DLCO/VA is 2.42, 68%, corrected into the normal range. Flow volume loop: The flow volume loop shows severe coving of the expiratory limb. IMPRESSION: Extremely severe obstructive ventilatory impairment with excellent response to bronchodilator, severe air trapping, moderate diffusion impairment which corrects for alveolar volume. No prior studies to compare. Mckenzie Gilliam MD
--- NOTE | 2025-10-24 01:46 | P.PCNSIX_ITS ---
Six Minute Walk Procedure Procedure Performed Pulmonary Stress Test (6 min walk) Six Minute Walk Six Minute Walk: DATE OF SERVICE: 09/19/2025 REQUESTING: Mckenzie Gilliam MD REASON FOR TESTING: COPD SIX MINUTE WALK This test was conducted per ATS guidelines. He was using his personal cane and breathing room air during the test. The initial saturation was 95%, and initial heart rate was 73 bpm. The patient walked without stopping, completing 152.4 meters / 500 feet. The saturation at the end of testing was 92%, and the heart rate was 89 bpm. The Jennifer score for fatigue and dyspnea was 1 initially, and 2- 3 at the end of testing. IMPRESSION: The patient did not require supplemental oxygen with exertion. Distance walked is less than expected for age. Mckenzie Gilliam MD
== END 2025-09-19 08:03 | disposition home or self-care (01) ==
PROVIDERS: PCP Internal Medicine; Visit Provider Internal Medicine Critical Care Medicine
DX: J44.1 Chronic obstructive pulmonary disease with (acute) exacerbation (principal)
CPT/HCPCS: 94060; 94618; 94726; 94729

== ENCOUNTER 2025-09-22 11:03 | Outpatient (CLI) | payer MEDICARE, SELFPAY ==
--- OUTSIDE RECORDS SUMMARY | 2024-05-15 16:30 | XMS_ITS ---
Author Organization [facility] [employer] [facility] [employer] [facility] [place] ([address]) Address [address] [place] [address] Care Team Providers Care Air Director Name Role Phone Odin Alex MD Primary Care Provider Dr. Jens Crockett Unavailable [phone] Hugo Dempsey Unavailable Unavailable ZZ-Migration, Provider Unavailable Unavailab le REASON FOR VISIT [facility] To [facility] Conversion Encounter Medications Medication SIG [...] Active Encounters Encounter Location Date Provider Diagnosis [facility] [place] [address] 05/15/2024 Provider ZZ-Migration Plan Of Treatment No Information Progress Notes * Billy RUSS LDOB:1944 (80 yo M)Acc No.[id number]:05/15/2024 Patient: S Billy RAMIREZ L Provider: Ana Lilia Salas :1945 A ge:78 Y S ex:Male Date:05/15/2024 Address:[address] [place], [place] [id number] Pcp:Odin Alex MD Subjective: * Chief Complaints: * 1 . Multum To Medispan Conversion Encounter. * Medical History: * Medications: T aking Flonase Allergy Relief 50 MCG/ACT Suspension 1 spray(s) in each nostril once a day , Taking Centrum THERAPEUTIC MULTIPLE VITAMINS WITH MINERALS TABLET 1 TAB(S) ORALLY ONCE A DAY , Notes to Pharmacist: *Please review and pick correct strength-formulation from [employer] Geneticsspan options. If intended option is not shown, discontinue and re-order from Quick Search*, Taking Melatonin 10 MG TABLET, EXTENDED RELEASE 1 TAB(S) ORALLY ONCE A DAY (AT BEDTIME) , Notes to Pharmacist: *Please review and pick correct strength-formulation from [employer] Genetic[employer]pan options. If intended option is not shown, [...] * Electronic signature of Yolie STINSON-Migration on 09/22/2025 at 12:16 PM CDT Sign off status: Pending * Provider: Ana Lilia gonzalez Migration Date: 0 05/15/2024 Generated for Satish benitez/Nicole/Ryan on: 12:16 PM CDT
--- OUTSIDE RECORDS SUMMARY | 2025-07-07 06:00 | XMS_ITS ---
Author Organization [facility] Address [address] [place], [place] [id number] Care Team Providers Care Tax Accountant Name Role Phone DANNY ROSE Unavailable [phone] Odin Alex Unavailable Unavailable REASON FOR VISIT *General care Medications Medication SIG (Take, Route, Frequency, Duration) Notes Start Date End Date Status Valsartan-hydroCHL OROthiazide 160-12.5 MG Oral; Duration: 90 Days Active Pantoprazole Sodium 40 MG Oral; Duration: 90 Days Active Clopidogrel Bisulfate 75 MG Oral; Duration: 90 Days Active Albuterol Sulfate HFA 108 (90 Base) MCG/ACT INHALE 2 PUFFS BY MOUTH EVERY 6 HOURS NEEDED Inhalation; Duration: 25 Days Active Pravastatin Sodium 40 MG TAKE 1 TABLET BY MOUTH ONCE DAILY Oral; Duration: 90 Days Active Metoprolol Succinate ER 25 MG Oral; Duration: 90 Days Active Montelukast Sodium 10 MG Oral; Duration: 90 Days Active Breztri Aerosphere 160-9-4.8 MCG/ACT INHALE 2 PUFFS TWICE DAILY Inhalation; Duration: 90 Days Active Valsartan-hydroCHL OROthiazide 320-25 MG Oral; Duration: 90 Days Active Ipratropium [place] 0.06 % Nasal; Duration: 14 Days Active terbinafine 250 MG Oral Tablet ORAL terbinafine 250 MG Oral TabletOriginal Medicationterbinafine 250 MG Oral Tablet *Reorder from [employer] for eRx and Interaction Alerts* 04/12/2021 Active Sujataquis Active Encounters Encounter Location Date Provider Diagnosis [facility] [place] [address] [place], [place] [id number] 07/07/2025 DANNY ROSE 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 ; Pain in right foot M79.671 ; Atherosclerosis of [place] arteries of extremities with intermittent claudication, bilateral legs I70.213 and Onychomycosis B35.1 Assessments Encounter Date Diagnosis (ICD Code) Assessment Notes Treatment Notes Treatment Clinical Notes Section Notes 07/07/2025 Non-pressure chronic ulcer of other part of right foot limited to breakdown of skin (ICD-10 - L97.511) 07/07/2025 Pain in right foot (ICD-10 - M79.671) 07/07/2025 Atherosclerosis of [place] arteries of extremities with intermittent claudication, bilateral [...] BELLO, 11/15/2025 12:30:00 PM, [address] [facility] [address], [place], [id number], Progress Notes * MESFIN CASTAÑEDA LDOB:1944 (80 yo M)Acc No.[id number]:07/07/2025 Patient: Irineo MESFIN RAMIREZ Provider: Damian Rose DPM :1945 A ge:80 Y S ex:Male Date:07/07/2025 Address:[address] [place], [place] [address] [phone] Subjective: * Chief Complaints: * 1 . *General care. * HPI: H PI: General care P bibiana presents to the office for diabetic foot care. Patient states that their nails are thickened, elongated and painful. Patient states that it is aggravated by shoe gear. Onset is gradual., Patient is taking prescription blood thinners., Date last seen by Dr. Alex was 05/2025., Initials mf. * Medical History: Kesha more. * Family History: F ather: PRN - [...] Smoking Status : Never smoked. * Medications: Paul Quintero , Taking terbinafine 250 MG Oral Tablet ORAL , Notes to Pharmacist: terbinafine 250 MG Oral TabletOriginal Medicationterbinafine 250 MG Oral Tablet *Reorder from [facility] for eRx and Interaction Alerts*, Taking Breztri Aerosphere 160-9-4.8 MCG/ACT Aerosol INHALE 2 PUFFS TWICE DAILY Inhalation , Taking Valsartan-hydroCHLOROthiazide 320-25 MG Tablet Oral , Taking Ipratropium [place] 0.06 % Solution Nasal , Taking Metoprolol [...] and reconciled with the patient Objective: * Vitals: * Examination: C onstitutional: Constitutional T he [...] - M79.671 3 . A therosclerosis of [place] arteries of extremities with intermittent claudication, bilateral [...] gait training * Follow Up: 9 weeks * Billing Information: * Visit Code: 35621 Office Visit, Est Pt., Level 3. * Procedure Codes: * Electronic signature of DANNY ROSE DPM on 09/22/2025 at 12:17 PM CDT Sign off status: Pending * Provider: Damian Rose DPM Date: 0 07/07/2025 Generated for Satish benitez/Nicole/Ryan on: 1 12:17 PM CDT History and Physical Notes * [...] bilaterally Temperature gradient: warm to cool bilat eramary
--- OUTSIDE RECORDS SUMMARY | 2025-09-08 06:20 | XMS_ITS ---
Author Organization [facility] Address [address] [place], [place] [phone] Care Team Providers Care Telephoto Installer Name Role Phone DANNY ROSE Unavailable [phone] Odin Alex Unavailable Unavailable Allergies No Known [...] Medicationterbinafine 250 MG Oral Tablet *Reorder from [employer] for eRx and Interaction Alerts* 04/12/2021 Active Metoprolol Succinate ER 25 MG Oral; Duration: 90 Days Active Ipratropium [place] 0.06 % Nasal; Duration: 14 Days Active Valsartan-hydroCHL OROthiazide 320-25 MG Oral; Duration: 90 Days Active Eliquis Active Pravastatin Sodium 40 MG TAKE 1 TABLET BY MOUTH ONCE DAILY Oral; Duration: 90 Days Active Vital Signs Height 73.00 in 09/08/2025 Height-cm 185.42 cm 09/08/2025 Encounters Encounter Location Date Provider Diagnosis [facility] [place] [address] [place], [place] [phone] 09/08/2025 DANNY MARIE 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 ; Pain in right foot M79.671 ; Atherosclerosis of [place] arteries of extremities with intermittent claudication, bilateral legs I70.213 and Onychomycosis B35.1 Assessments Encounter Date Diagnosis (ICD Code) Assessment Notes Treatment Notes Treatment Clinical Notes Section Notes 09/08/2025 Non-pressure chronic ulcer of other part of right foot limited to breakdown of skin (ICD-10 - L97.511) 09/08/2025 Pain in right foot (ICD-10 - M79.671) 09/08/2025 Atherosclerosis of [place] arteries of extremities with intermittent claudication, bilateral [...] [address], [place], [place], [phone], Progress Notes * MESFIN CASTAÑEDA LDOB:1944 (80 yo M)Acc No.[id number]:09/08/2025 Patient: MESFIN HUGGINS Provider: Damian Rose DPM :1945 A ge:80 Y S ex:Male Date:09/08/2025 Address:[address] [place] [address] Subjective: * Chief Complaints: * 1 . [...] Medicationterbinafine 250 MG Oral Tablet *Reorder from [employer] for eRx and Interaction Alerts*, Taking Breztri Aerosphere 160-9-4.8 MCG/ACT Aerosol INHALE 2 PUFFS TWICE DAILY Inhalation , Taking Valsartan-hydroCHLOROthiazide 320-25 MG Tablet Oral , Taking Ipratropium [place] 0.06 % Solution Nasal , Taking Metoprolol [...] - M79.671 3 . A therosclerosis of [place] arteries of extremities with intermittent claudication, bilateral [...] of DANNY ROSE DPM on 09/22/2025 at 12:18 PM CDT Sign off status: Pending * Provider: Damian Rose DPM Date: Generated for Satish benitez/Nicole/Ryan on: 12:18 PM CDT History and Physical Notes * [...]
--- NOTE | 2025-09-22 | ECG_ITS ---
Test Date: 2025-09-22 12:09:16 Measurements Intervals [place] Rate: 63 P: 0 TN: 0 QRS: -40 QRSD: 89 T: 0 QT: 405 QTc: 416 Interpretive Statements ATRIAL FIBRILLATION WITH ABERRANT CONDUCTION OR VENTRICULAR PREMATURE COMPLEXES LEFT AXIS DEVIATION LOW QRS VOLTAGE IN PRECORDIAL LEADS CANNOT R/O SEPTAL INFARCT, AGE INDETERMINATE ST-T WAVE ABNORMALITY IN ANTEROLATERAL LEADS- CONSIDER ISCHEMIA ABNORMAL ECG Compared to ECG 12/23/2024 15:49:59 NO SIGNIFICANT CHANGE Electronically Signed On 09-22-2025 12:33:25 CDT by Mahad Chaudhari D.O.
[2025-09-22 12:10] LABS: Hematocrit 42.0 % (42.0-52.0); Hemoglobin 13.0 g/dL (14.0-18.0); Immature Granulocyte Percent A 0.5 % (0-0.5); Lymphocytes Absolute Auto 1.41 K/mm3 (0.9-3.2); Mean Corpuscular HGB Conc 31.0 g/dl (32-36); Mean Corpuscular Hemoglobin 27.7 pg (26-34); Mean Corpuscular Volume 89.6 fl (80-100); Nucleated Red Blood Cells Absolute Auto 0.000 K/mm3 (0.0-0.012); Nucleated Red Blood Cells Perc 0.0 % (0.0-0.2); Platelet Count Result 252 k/mm3 (150-375); Red Blood Count 4.69 M/mm3 (4.6-6.20); White Blood Count 10.5 K/mm3 (4.5-10.0)
[2025-09-22 12:16] LABS: Add Urine Microscopic? YES; Appearance Urine Clear (Clear); Glucose Urine UA Negative (Negative); Leukocyte Esterase Ur Negative LEU/UL (Negative); Nitrate Urine Negative (Negative); Non Pathogenic Casts 0-2; Specific Grav Ur 1.022 (1.001-1.035)
--- OUTSIDE RECORDS SUMMARY | 2025-09-22 12:17 | XMS_ITS | Data Portability ---
Author Organization [place] [facility] [employer], Main Office Address [address] [place] [address] Assessment No assessment recorded. Plan of Treatment Reminders Order Date Submit Date Provider Last Modified By Organization Details Last Modified Time Details Appointments None recorded. Lab CBC w/ auto diff 025 025 [email or web address] [facility] ([facility]), [address] [place], [address], 5 10:19:08 T4, free, serum 025 025 [facility] [address] [place], [address], 5 10:19:08 TSH, serum or plasma 025 025 [email or web address] [facility] ([facility]), [address] [place], [address], 5 10:19:08 lipid panel, serum 025 025 [facility] [address] [place], [address], 5 10:19:07 CMP, serum or plasma 025 025 [email or web address] [facility] ([facility]), [address] [place], [address], 5 10:19:08 lipid panel, serum [email or web address] Not available 4 16:56:55 CMP, serum or plasma Not available 4 16:56:55 HbA1c (hemoglob in A1c), blood [email or web address] Not available 4 16:56:55 TSH, serum or plasma [email or web address] Not available 4 16:56:55 T4, free, serum [email or web address] Not available 4 16:56:55 CBC w/ auto diff [email or web address] Not available 4 16:56:54 PSA, serum or plasma 024 [email or web address] Not available 4 11:53:45 vitamin B12, serum 024 Not available 4 11:53:45 magnesium , serum or plasma 024 024 [email or web address] Not available 4 11:53:45 lipid panel, serum 024 024 Not available 4 16:54:06 CMP, serum or plasma 024 [email or web address] Not available 4 11:53:45 TSH, serum or plasma 024 024 [email or web address] Not available 4 16:53:40 T4, free, serum 024 [email or web address] Not available 4 16:53:51 CBC w/ auto diff 024 Not available 4 16:53:25 Referral None recorded. Procedures None recorded. Surgeries None recorded. Imaging None recorded. Medication Orders None recorded. Patient TargetsNo targets recorded. Patient Instructions Encounter Date Encounter Id Patient Instructions Last Modified By Organization Details Last Modified Time 04/27/2024 [id number] Follow-up hypertension, paroxysmal atrial fibrillation, hyperlipidemia, chronic [...] recognize, using context, where substitutions have occurred. [email or web address] Not available 04/27/2024 15:31:43 09/09/2024 [id number] dementia rating scale-2* Not available 09/09/2024 12:50:44 alcohol misuse* [email or web address] Not available 09/09/2024 12:50:44 depression screening* [email or web address] Not available 09/09/2024 12:50:44 Timed Up and Go test (TUG)* [email or web address] Not available 09/09/2024 12:50:44 multi-dimensiona l health assessment questionnaire* [email or web address] Not available 09/09/2024 12:50:44 Personalized [facility] Plan and Screening Recommendations Advance [...] Negative Active diagnosis, Continue current treatment plan [email or web address] Not available 09/09/2024 12:28:01 Medicare wellnes s [...] recognize, using context, where substitutions have occurred. [email or web address] Not available 09/09/2024 12:51:23 01/11/2025 [id number] Coronary artery disease, paroxysmal atrial fibrillation, hypertension [...] Created: Odin Alex M.D. 01.11.2025 11:39 AM Not available 01/11/2025 12:39:30 02/10/2025 [id number] In primarily because of a fall several days ago. Apparently tripped over some equipment at [employer]. End up hitting the back side of his head as well as the right shoulder and arm. Has considerable amount of ecchymotic changes over these areas. Did go to the emergency room had CT head scans as well as CT cervical scans performed which were all negative. Clinically is doing better. Is scheduled to see pulmonology next week. Keep Appointment: Fri 11:00 AM Healy Portions of record are template driven. When necessary additional context will be provided. Additionally some portions have been created with voice recognition software. Occasional wrong-word or s ound-a-like substitutions may have occurred due to the inherent limitations of voice recognition software. Read the chart carefully and recognize, using context, where substitutions may have occurred. Created: Odin Alex M.D. 02.10.2025 01:43 PM [email or web address] Not available 02/10/2025 14:43:10 05/24/2025 [id number] Follow-up for coronary artery disease, essential hypertension, [...] Created: Odin Alex M.D. 05.24.2025 11:42 AM [email or web address] Not available 05/24/2025 12:42:06 Reason for Referral None Reported. Results Created Date Observation Date Name Description Value Unit Range Abnormal Flag Note LastModifiedBy Organization Detail LastModifiedTime 06/01/20 24 US, retro perit oneum [facility] [address] [facility] [place] [address] Patien t Name: MESFIN WILEY Access ion #: [id number] Sex: M : 1944 4 Dictat [...] at 2023 13:36: 32 PM Page [address] (Imaging) [address] [place], [address], 06/01/2024 17:01:32 11/30/20 24 11/30/2024 US, abdom en No observ ation record ed. [address] [facility] [address], [place], [address], 11/30/2024 16:41:01 02/07/20 25 02/06/2025 CT, cervi bernard spine , w/o contr ast No observ ation record ed. [place] [id number] [facility] [address], [place], [address], 02/07/2025 06:44:55 02/07/20 25 02/06/2025 CT, brain , w/o contr ast No observ ation record ed. [address], [place], [address], 02/07/2025 06:45:41 02/07/20 25 02/06/2025 CT, chest + abdom en + pelvi s, w/o contr ast No observ ation record ed. [address], [place], [address], 02/07/2025 06:46:13 02/07/20 25 02/06/2025 XR, elbow , 2 view No observ ation record ed. [address], [place], [address], 02/07/2025 06:50:44 06/20/20 25 06/20/2025 katy lynne ow study No observ ation record ed. [address], [place], [address], 06/20/2025 17:40:22 07/28/20 25 07/28/2025 US, renal No observ ation record ed. [address], [place], [address], 07/28/2025 18:16:17 08/31/20 25 07/28/2025 US, renal No observ ation record ed. [address], [place], [address], 08/31/2025 14:23:04 Result Notes None recorded. Problems Name Problem SNOMED Code Status Onset Date Resolution Date Notes Provider Name and Address Organization Details Recorded Time Rectal hemorrhag e 59369026 Active Not Available [employer] 3 09:17:33 Hyperchol esterolem ia 81695196 Active Not Available [facility] 3 09:17:33 Gastroeso phageal reflux disease 813258654 Active Not Available [facility] 3 09:17:34 Left inguinal hernia 515250357 Active Not Available [facility] 3 09:17:34 Hypoglyce joesph 795324290 Active Not Available [facility] 3 09:17:34 Prostate specific antigen above reference range 586059711 Active Not Available [facility] 3 09:17:34 Osteoarth ritis 564009415 Active Not Available [facility] 3 09:17:34 Atrial fibrillat ion 41048564 Active Not Available [facility] 3 09:17:35 Acute bronchiti s 18978958 Active 2018 Not Available [facility] 3 09:17:33 Anxiety 39342108 Active 2019 Not Available [facility] 3 09:17:35 Chronic obstructi ve pulmonary disease 89503479 Active 2020 Not Available [facility] 3 09:17:33 Hyperlipi demia 89036411 Completed 202011/27/2021 Not Available [facility] 3 09:17:35 Obstructi ve sleep apnea syndrome 84171763 Active 2020 Not Available [facility] 3 09:17:35 Spinal stenosis of lumbar region 91801870 Active 2020 Not Available [facility] 3 09:17:34 Disorder of prostate 89762226 Active 2021 Not Available [facility] 3 09:17:34 Effects of high altitude 41650475 Active 2021 Not Available [facility] 3 09:17:36 COVID-19 904032326 Active 2021 Not Available [facility] 3 09:17:35 Obesity 193085222 Active 2021 Not Available [facility] 3 09:17:35 Obese class II 79778636381 4105 Active 2022 Odin Alex MD [address] [place] [address], [facility] [address], [place], [address] , [place] [facility] 3 15:23:13 Chronic renal failure 06785271 Active 2022 DEBBIE Rolle, [place] [facility] 3 11:31:19 Leukocyto sis 853421919 Active 2022 Aracelis Martinez CMA null, [place] [facility] 3 11:33:34 Diarrhea 98657408 Active 2022 Odin Alex MD [address], [place] [address], [address] , [place] [facility] 3 16:29:58 Serum creatinin e above reference range 432730796 Active 2022 Odin Alex MD [address], [facility] [address], [address] , [place] [facility] 3 10:51:32 Low back pain 786895391 Active 2022 Aracelis Martinez CMA null, [place] [facility] 3 15:20:53 Celluliti s of toe of right foot 66472635164 820925 Active 2022 Odin Alex MD [address], [place] [address], [address] , [place] [facility] 3 14:48:55 Chronic low back pain 390610142 Active 2022 Mitzi stephens, [place] [facility] 3 15:33:51 Hyperglyc emia 53426500 Active 2023 Aracelis Martinez CMA null, [place] [facility] 5 10:54:22 Headache 38497111 Active 2023 Odin Alex MD [address], [place] [address], [address] , [place] [facility] 4 14:19:35 Liver enzymes level above reference range 755724407 Active 2023 Aracelis Martinez CMA null, [place] [facility] 4 11:44:45 Depressiv e disorder 68350192 Active 2023 Odin Alex MD [address], [place], [address] , [place] [facility] 4 12:14:38 Abnormal liver function 48924182 Active 2023 Mitzi Torresson null, [place] [facility] 4 11:58:35 Hearing loss 13657281 Active 2023 Mitzi Jerel null, [place] [facility] 4 12:56:05 Chronic cough 36378713 Active 2024 Aracelis Martinez CMA null, [place] [facility] 5 14:19:12 Coronary arteriosc lerosis 75781886 Active 2024 Odin Alex MD [address], [place], [address] , [facility] 5 12:33:22 Dyspnea 235725161 Active 2024 Aracelis Martinez CMA null, [place] [facility] 5 12:02:46 Essential hypertens ion 60912019 Active 2024 Odin Alex MD [address], [place], [address] , [facility] 5 14:34:33 Severe chronic obstructi ve pulmonary disease 193556789 Active 2024 Katty Mcclain null, [place] [facility] 5 14:28:59 Morbid obesity 184325374 Active 2024 Katty Mcclain null, [place] [facility] 5 16:53:03 Type 2 diabetes mellitus controlle d by diet 65739920519 9101 Active 2024 Odin Alex MD [address], [place], [address] , [place] [facility] 5 09:15:04 Chronic kidney disease 110797794 Active 2024 Aracelis Martinez CMA null, [facility] 5 16:50:31 Diabetes mellitus 49255814 Active 2024 Katty Mcclain null, [facility] 5 10:12:05 Type 2 diabetes mellitus 71705432 Active 2024 Aracelis Martinez CMA null, [facility] 5 11:13:30 Newly diagnosed diabetes 153599587 Active 2024 Aracelis Martinez CMA kat, [facility] 5 11:32:02 Problem Notes None recorded. Procedures Surgical History Date Name Laterality Status Provider Name and Address Organization Details Recorded Time 4 Medicare Wellness CPT Code, subsequent completed Caryn Macias RN [facility] 09/09/2024 12:20:33 3 Medicare Wellness CPT Code, subsequent completed Caryn Macias RN [facility] 08/26/2023 14:50:18 3 Advanced Care Planning completed Caryn Macias RN [facility] 08/26/2023 14:52:44 Imaging Results None recorded. [...] Not Available Not Available Not Avai lable oseltamiv ir 75 mg capsule TAKE 1 [...] Not Available Not Available Not Alireza caballero Wegovy 0.25 mg/0.5 mL subcutane ous pen [...] Updated DateTime 5 177.8 cm 36.2 kg/m2 004222. 28 g 54 /min 97 [degF] 84 % 84 % 138/84 mm[Hg] [employer] 5 12:18:02 Date Recorded Heart rate Oxygen saturation Oxygen saturation in Arterial blood by Pulse oximetry Body temperature Systolic And Diastolic Provider Name and Address Organization Details Last Updated DateTime 5 65 /min 95 % 95 % 97 [degF] 118/68 mm[Hg] [employer] [facility] 5 14:23:29 Date Recorded Body height Body mass index (BMI) Body weight Heart rate Body temperature Oxygen saturation Oxygen saturation in Arterial blood by Pulse oximetry Systolic And Diastolic Provider Name and Address Organization Details Last Updated DateTime 4 177.8 cm 37.2 kg/m2 599235. 42 g 69 /min 97 [degF] 91 % 91 % 122/84 mm[Hg] [facility] [employer] [facility] 4 15:05:15 Date Recorded Body height Body mass index (BMI) Body weight Heart rate Body temperature Oxygen saturation Oxygen saturation in Arterial blood by Pulse oximetry Systolic And Diastolic Provider Name and Address Organization Details Last Updated DateTime 5 177.8 cm 36.9 kg/m2 205642. 24 g 68 /min 97 [degF] 95 % 95 % 122/74 mm[Hg] [facility] [employer] [facility] 5 12:12:20 Date Recorded Pain severity - 0-10 verbal numeric rating [Score] - Reported Provider Name and Address Organization Details Last Updated DateTime 09/09/2024 0 Caryn Macias RN [facility] [employer] [facility] 09/09/2024 12:20:54 Date Recorded Body height Body mass index (BMI) Body weight Heart rate Body temperature Oxygen saturation Oxygen saturation in Arterial blood by Pulse oximetry Systolic And Diastolic Provider Name and Address Organization Details Last Updated DateTime 4 177.8 cm 35.9 kg/m2 146276. 09 g 67 /min 97 [degF] 96 % 96 % 120/86 mm[Hg] VALERIA Dugan [facility] [employer] [facility] 4 12:14:36 Social History Question Answer Notes LastModified by Organization Details LastModified Time Tobacco Smoking Status Former Smoker Not Available [facility] 01/29/2023 09:12:54 Do You Have An Advance Directive? No Info Given Previously [email or web address] Information not available 09/09/2024 Are You Blind Or Do You Have Difficulty Seeing? No MIGRATION.0301 [id number] Information not available 01/29/2023 In The 14 Days Before Symptom Onset, Have You Had Close Contact With A Laboratory-conf irmed COVID-19 While That Case Was Ill? No [id number] Information not available 01/29/2023 In The 14 Days Before Symptom Onset, Have You Had Close Contact With A Person Who Is Under Investigation For COVID-19 While That Person Was Ill? No MIGRATION.0301 [id number] Information not available 01/29/2023 Are You Deaf Or Do You Have Serious Difficulty Hearing? Yes [email or web address] Information not available 08/26/2023 What Type Of Diet Are You Following? REGULAR MIGRATION.0301 [id number] Information not available 01/29/2023 Have There Been Any Changes To Your Family Or Social Situation? No [email or web address] Information not available 08/26/2023 What Is The Fluoride Status Of Your Home? Fluoridated MIGRATION.0301 [id number] Information not available 01/29/2023 When Did You Quit Smoking? 16+yearssincelast cigarette MIGRATION.0301 127993 Information not available 01/29/2023 Are There Any Guns Present In Your Home? Yes MIGRATION.0301 [id number] Information not available 01/29/2023 Do You Use Insect Repellent Routinely? No [email or web address] Information not available 08/26/2023 Where Do You Live? [facility] [email or web address] Information not available 08/26/2023 Guns Present In The Home? Yes [email or web address] Information not available 08/26/2023 Are You Able To Care For Yourself? Yes [email or web address] Information not available 08/26/2023 Are You Blind Or Do Yo Have Difficulty Seeing? No [email or web address] Information not available 08/26/2023 Are You Deaf Or Do You Have Serious Difficulty Hearing? Yes Has Hearing Aids [email or web address] Information not available 08/26/2023 Live Alone Of With Others? With Others [email or web address] Information not available 08/26/2023 Do You Have A Medical Power Of [employer]? No [email or web address] Information not available 08/26/2023 What Was The Date Of Your Most Recent Tobacco Screening? 09/09/2024 [email or web address] Information not available 09/09/2024 Do You Have Any Pets? No [email or web address] Information not available 08/26/2023 What Is Your Relationship Status? [email or web address] Information not available 08/26/2023 Do You Use Your Seat Belt Or Car Seat Routinely? Yes MIGRATION.0301 [id number] Information not available 01/29/2023 Do You Have Smoke And Carbon Monoxide Detectors In Your Home? Yes MIGRATION.0301 [id number] Information not available 01/29/2023 At What Age Did You Start Smoking Tobacco? 22 Quit In 2000 MIGRATION.0301 [id number] Information not available 01/29/2023 Are You Passively Exposed To Smoke? No [email or web address] Information not available 08/26/2023 Are There Any Smokers In Your House? No [email or web address] Information not available 08/26/2023 How Much Tobacco Do You Smoke? 1 PPD MIGRATION.0301 199011 Information not available 01/29/2023 Do You Use Sunscreen Routinely? Yes MIGRATION.0301 [id number] Information not available 01/29/2023 Have You Recently Traveled Abroad? No MIGRATION.0301 757803 Information not available 01/29/2023 Do You Have Difficulty Walking Or Climbing Stairs? Yes Uses A Cane [email or web address] Information not available 09/09/2024 Sex: Unknown Functional Status Question Answer Note LastModified by [employer] ion Details LastModified Time What is your level of alcohol consumption? None [email or web address] Information not available 09/09/2024 Do you or have you ever used smokeless tobacco? Never used smokeless tobacco MIGRATION.70661 91650 Information not available 01/29/2023 Do you have transportation difficulties? No MIGRATION.76708 15288 Information not available 01/29/2023 Are you able to walk independently without assistance or assistive devices? YESASSIST uses a cane [email or web address] Information not available 08/26/2023 Do you have difficulty doing errands alone? No MIGRATION.58888 51096 Information not available 01/29/2023 Are you able to care for yourself independently? Yes MIGRATION.19689 24460 Information not available 01/29/2023 Do you have difficulty dressing, bathing, grooming, or toileting? No MIGRATION.63250 31241 Information not available 01/29/2023 Do you or have you ever used e-cigarettes or vape? Never used electronic cigarettes MIGRATION.55001 81277 Information not available 01/29/2023 What is your exercise level? Occasional MIGRATION.25002 57519 Information not available 01/29/2023 Mental Status Question Answer Note LastModified by Organizat ion Details LastModified Time Do you have difficulty concentrating, remembering or making decisions? No MIGRATION.[id number] 6 Information not available 01/29/2023 Family History [...] ARTERY DISEASE (CAD) N ADDICTION CONCERNS N ENDOMETRIOSIS N Impotence N USE OF BLOOD THINNERS N SKIN [...] GLAUCOMA N FOOT PROBLEM N DIVERTICULITIS N CHICKENPOX N SLEEP APNEA N INFECTIOUS DISEASE N HEART ARRHYTHMIA N PROSTATE N INSOMNIA N HIGH CHOLESTEROL / HYPERLIPIDEMIA N HYPERTHYROIDISM N EYE PROBLEMS N EDEMA N CHRONIC PAIN SYNDROME N HYPOTHYROIDISM N CAROTID BLOCKAGE N CONSTIPATION N BACK / NECK PROBLEMS N HAVE YOU BEEN HOSPITALIZED OR SEEN IN [facility] IN THE PAST YEAR ? N ATHEROSCLEROSIS [...] Brain Problems N HERPES N DEMENTIA N HEADACHES/MIGRAINES N SEIZURES/EPILEPSY N VASCULAR DISEASE N PACEMAKER N Blood Disorder N DIZZINESS N HEART DISEASE/HEART PROBLEMS N KIDNEY DISEASE N MULTIPLE SCLEROSIS N CARDIAC ARRHYTHMIA N CANCER: SPECIFY N ATRIAL FIBRILLATION N Gall Stones N PULMONARY EMBOLISM N AUTOIMMUNE DISEASE N Immunizations Vaccine Type Date Status Note Provider Nam e and Address Organization Details Recorded Time pneumococcal polysaccharide PPV23 1 completed Katty stephens [facility] [employer] [facility] 08/26/2023 14:38:26 Influenza, high-dose, quadrivalent, PF 3 completed Kattyjyoti stephens [facility] 08/26/2023 16:00:55 Influenza, split virus, trivalent, preservative 4 completed Not Available [facility] 01/29/2023 09:21:35 Influenza, split virus, trivalent, preservative 3 completed Not Available [facility] 01/29/2023 09:21:35 influenza, unspecified formulation 2 completed Not Available [facility] 01/29/2023 09:21:35 COVID-19, mRNA, LNP-S, PF, 30 mcg/0.3 mL dose 2 completed Not Available [facility] 01/29/2023 09:21:35 Influenza, split virus, quadrivalent, preservative 1 completed Not Available [facility] 01/29/2023 09:21:35 COVID-19, mRNA, LNP-S, PF, 30 mcg/0.3 mL dose 1 completed Not Available [facility] 01/29/2023 09:21:36 SARS-COV-2 (COVID-19) vaccine, UNSPECIFIED 1 completed Not Available [facility] 01/29/2023 09:21:36 SARS-COV-2 (COVID-19) vaccine, UNSPECIFIED 1 completed Not Available [facility] 01/29/2023 09:21:36 Influenza, high-dose, quadrivalent, PF 0 completed Not Available [facility] 01/29/2023 09:21:36 Influenza, high-dose, trivalent, PF 0 completed Not Available [facility] 01/29/2023 09:21:36 Influenza, high-dose, trivalent, PF 8 completed Not Available [facility] 01/29/2023 09:21:37 Influenza, high-dose, trivalent, PF 7 completed Not Available [facility] 01/29/2023 09:21:37 Influenza, split virus, quadrivalent, PF 6 completed Not Available [facility] 01/29/2023 09:21:37 Influenza, split virus, quadrivalent, preservative 5 completed Not Available [facility] 01/29/2023 09:21:37 Pneumococcal conjugate PCV 13 5 completed Not Available [facility] 01/29/2023 09:21:37 Influenza, high-dose, trivalent, PF 4 completed Odin Alex MD [address] [facility], [facility] [address], [place], [address], [facility] [employer] [place] 09/09/2024 12:50:45 Past Encounters Encounter ID Performer Location Encounter Start Date Encounter Closed Date Diagnosis/Indication Diagnosis SNOMED-CT Code Diagnosis ICD10 Code Diagnosis IMO Codes Diagnosis Note [id number] Odin Alex MD [facility] [place] [address] [place] [address] y , [place] [address] 05/15/2021 00:00:00 05/15/2021 13:03:34 [id number] Odin Alex MD [facility] Internal Med [facility] [address] [facility], [facility] [address] [place] [address] 08/01/2021 00:00:00 08/01/2021 12:38:03 [id number] Odin Alex MD [facility] [place] [facility] [place] [address] [place] [address] [place] [address] 11/27/2021 00:00:00 11/27/2021 15:08:49 [id number] Odin Alex MD [facility] [place] [address] [place] [address] [place] [address] 03/26/2022 00:00:00 03/26/2022 15:38:17 [id number] Odin Alex MD [facility] [place] [address] [place] [address] [place] [address] 05/31/2022 00:00:00 05/31/2022 11:59:19 [id number] Odin Alex MD [facility] [place] [address] [place] [address] [place] [address] 07/26/2022 00:00:00 07/26/2022 12:34:00 [id number] Odin Alex MD [facility] [place] [address] [place] [address] [place] [address] 12/13/2022 00:00:00 12/13/2022 15:11:30 [id number] Odin Alex MD [facility] [place] [address] [place] [address] [place] [address] 03/28/2023 14:54:06 03/28/2023 15:35:24 Benign essential hypertension 0633570 I10 Hypercholesterolemia 136 98336 E78.00 Obstructiv e sleep apnea syndrome 32135274 G47.33 Gastroesop hageal reflux disease 140170091 K21.9 Obese class II 749734807 1 94148 E66.9 Atrial fibrillation 4943 6004 I48.91 Disorder of prostate 302 09258 N42.9 [id number] Odin Alex MD [facility] [place] [address] [place] [address] y , [place] [address] 08/26/2023 14:15:37 08/26/2023 15:31:19 Adult health examination 885258928 Z00.00 Screening for disorder 515938554 Z13.9 Benign ess ential hypertension 4257392 I10 Atrial fibrillation 4943 6004 I48.91 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 36659812 M48.062 Administra tion of influenza vaccine 65005131 Z23 [id number] Odin Alex MD [facility] [place] [address] [place] [address] [place] [address] 09/23/2023 14:20:04 09/23/2023 15:01:03 Leukocytosis 741127952 D72.620 [id number] Odin Alex MD [facility] [place] [address] [facility] [address] 10/16/2023 14:26:42 10/16/2023 14:57:58 Cellulitis of toe of right foot 1206025903 7713108 L03.473 [id number] Odin Alex MD [facility] Internal Med [facility] [address] [address] 12/30/2023 14:41:53 12/30/2023 15:30:52 Benign essential hypertension 6849068 I10 Atrial fibrillation 4943 6004 I48.91 Hypercholesterolemia 136 39513 E78.00 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 78912129 M48.619 [id number] Odin Alex MD [facility] Internal Med [facility] [address] [address] 01/19/2024 10:14:13 01/19/2024 10:52:34 Headache 45213308 G44.220 [id number] Odin Alex MD [facility] [address] [place] [address] [place] [address] 04/27/2024 14:44:48 04/27/2024 15:35:58 Benign essential hypertension 4335771 I10 Atrial fibrillation 4943 6004 I48.91 Anxiety 94938290 F41.9 Chronic ob structive pulmonary disease 91130707 J44.9 Gastroesop hageal reflux disease 353871534 K21.9 Hypercholesterolemia 136 94194 E78.00 Obese class II 761779941 1 50502 E66.9 Disorder of prostate 302 07192 N42.9 [id number] Odin Alex MD [facility] Internal [address] [place] [address] 09/09/2024 12:06:53 09/09/2024 14:13:29 Adult health examination 472887093 Z00.00 Screening for disorder 339027677 Z13.9 Administra tion of influenza vaccine 80054672 Z23 Benign ess ential hypertension 9479774 I10 Atrial fibrillation 4943 6004 I48.91 Chronic ob structive pulmonary disease 50128593 J44.9 Hypercholesterolemia 136 59473 E78.00 Obese class II 553238598 1 02503 E66.9 Hyperglycemia 97954958 R 73.9 [id number] Odin Alex MD [facility] Primary Care [facility] [place] [address] [facility] [address] [place] [address] 01/11/2025 11:54:22 01/11/2025 12:52:58 Coronary arteriosclerosis 87744762 I25.10 Atrial fibrillation 4943 6004 I48.91 Benign ess ential hypertension 6814735 I10 Chronic ob structive pulmonary disease 99939178 J44.9 [id number] Odin Alex MD [facility] Primary Care [place] [address] [facility] [address] [place] [address] 02/10/2025 14:15:48 02/10/2025 14:46:13 Coronary arteriosclerosis 23451069 I25.10 Hypercholesterolemia 136 94384 E78.00 Chronic ob structive pulmonary disease 32149377 J44.9 Atrial fibrillation 4943 6004 I48.91 Essential hypertension 00057669 I10 [id number] Odin Alex MD [facility] Med [place] [address] [facility], [place] [place] [address] 05/24/2025 11:59:46 05/24/2025 12:50:34 Chronic obstructive pulmonary disease 22651254 J44.9 Atrial fibrillation 4943 6004 I48.91 Coronary arteriosclerosis 32784628 I25.10 Essential hypertension 50122386 I10 Hypercholesterolemia 136 61518 E78.00 Obese class II 622621942 1 63226 E66.9 Health Concerns Section Related Observation LastModified by Organization Detai ls LastModified Time None Recorded Concern Status LastModified by Organization Details LastModified Time None Recorded Advance Directives Directive N: Info given previously Payers Insurance Date Sequence Insurance Name Policy Number Policy Richards Covered Member ID Richards Member ID Guarantor Name 05/23/2025 1 [employer] CARLOS (MEDICARE REPLACEMENT/ ADVANTAGE - PPO) [id number] Mesfin Russ [id number] Mesfin Russ Notes Date Note Type Note [...] Systemic Symptoms:none Medication Reconciliation: from medication list. [id number]: Echocardiogram demonstrated an ejection fraction of approximately [...] Succinate Er. Rate control: controlled ventricular response [id number] Criteria: hypertension, Age > 75 and and [...] offered to be evaluated and instructed by yarn winder on weight loss diet. Active Medication ListMethotrexate [...] MG One Tablet At Diner Vaccination and Tjcjjafffsie4056-43 Vexzogshq8456-06 Covid Vdgxmy1004-56 Prevnar 13 Lx7247-17 Pneumovax Surgical Jfgbpfu5314-40 Distal Phalanx Amputation Rt. 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 [address], [place], [address], [place] [facility] [employer] [facility] 04/27/2024 15:32:14 4 text/html Patient Name: Mesfin [...] Systemic Symptoms:none Medication Reconciliation: from medication list. Ptgmqamcfdi89-78-7723: Echocardiogram demonstrated an ejection fraction of approximately [...] Succinate Er. Rate control: controlled ventricular response [id number] Criteria: Age > 75 for embolic phenomenon. [...] offered to be evaluated and instructed by yarn winder on weight loss diet. Active Medication ListMethotrexate [...] PREVNAR 13 GC PREVNAR 20 Needed(X) 2021[facility] Vgpwkde8549-71 Distal Phalanx Amputation Rt. Second Hia5443-31 Left Vpcquhto0014-19 Right Rzvrbsxl7014-50 Right Inguinal Hupokz0573-09 Pilonidal Cyst times 2 Preventative Testing( ) 05/18/2024 Albumin 4.4 G/DL( ) 05/18/2024 PSA 3.2 NG/ML 05/18/2026( ) 03/05/2024 CT Thorax( ) 01/20/2024 HAIC 6.9 % H( ) 05/08/2015 Colonoscopy (10 Years) 05/08/2025 Social HistorySmoke one pack daily for approximately 20 years and quit in 2000Drinks sociallyRetired computer graphic artist Family HistoryMother 69 from ITP and complications following the splenectomyFather 83 from Cancer of the LungTwo brothers both frin DM, ASHD, and Atrial Fibrillation and renal complicationsThree sisters all living each has DM and HTN Odin Alex MD [address] [facility], [facility] [address], [place], [address], [facility] [employer] 09/09/2024 12:51:50 5 text/html Patient Name: Mesfin Donovan Of Service: Friday ( 01.11.2025 ): 1945 [...] Systemic Symptoms:none Medication Reconciliation: from medication list. [id number]: Echocardiogram demonstrated an ejection fraction of approximately [...] offered to be evaluated and instructed by yarn winder on weight loss diet. Active Medication ListMethotrexate [...] PrnAlbuterol Sulfate Hfa 90 UG AEROSOL, METERED O8lYdroqilod 25 MG-320 MG (TABLET - ORAL) DailyMetoprolol Succinate Er 100 MG One Tablet At DinerPlavix 75 MG TABLET, FILM COATED Once Daily Vaccination and Immunization( ) 2024-08 INFLUENZA( ) 2011-08 PNEUMOVAX(X) 2015-01 PREVNAR 13 GC PREVNAR 20 Needed(X) 2021-08 COVID [facility] Llcsgjz2118-19 LAD Hgdhq3936-85 Distal Phalanx Amputation Rt. Second Pfs0858-91 Left Dfiqsayh8709-62 Right Jjndxwgz5341-46 Right Inguinal Rjvach8323-17 Pilonidal Cyst times 2 Preventative Testing( ) 11/10/2024 Optometry( ) 09/24/2024 Albumin 4.2 G/DL( ) 09/24/2024 HAIC 6.7 % H( ) 05/18/2024 PSA 3.2 NG/ML 05/18/2026( ) 03/05/2024 CT Thorax( ) 05/08/2015 Colonoscopy (10 Years) 05/08/2025 Social HistorySmoke one pack daily for approximately 20 years and quit in 2000Drinks sociallyRetired computer graphic artist Family HistoryMother 69 from ITP and complications following the splenectomyFather 83 from Cancer of the LungTwo brothers both frin DM, ASHD, and Atrial Fibrillation and renal complicationsThree sisters all living each has DM and HTN Odin Alex MD [address] [facility], [facility] [address], [place], [address], [facility] [employer] 01/11/2025 12:39:46 5 text/html Patient Name: Mesfin Donovante Of Service: January ( 02.10.2025 ): 1945 [...] and myalgia Medication Reconciliation: from medication list. [id number]: Echocardiogram demonstrated an ejection fraction of approximately [...] Succinate Er. Rate control: controlled ventricular response [id number] Criteria: Age 65-74 for embolic phenomenon. Anticoagulation: [...] PrnAlbuterol Sulfate Hfa 90 UG AEROSOL, METERED M3oDtxegfwwy 25 MG-320 MG (TABLET - ORAL) DailyMetoprolol Succinate Er 100 MG One Tablet At DinerPlavix 75 MG TABLET, FILM COATED Once Daily Vaccination and Immunization( ) 2024-08 INFLUENZA( ) 2011-08 PNEUMOVAX(X) 2015-01 PREVNAR 13 GC PREVNAR 20 Needed(X) 2021-08 [employer] [facility] Mgpvdpz4184-02 LAD Lktgo5648-83 Distal Phalanx Amputation Rt. Second Xrb9516-94 Left Snkjrehr6277-36 Right Vmnxymyz1169-91 Right Inguinal Abthfc7459-51 Pilonidal Cyst times 2 Preventative Testing( ) 11/10/2024 Optometry( ) 09/24/2024 Albumin 4.2 G/DL( ) 09/24/2024 HAIC 6.7 % H( ) 05/18/2024 PSA 3.2 NG/ML 05/18/2026( ) 03/05/2024 CT Thorax( ) 05/08/2015 Colonoscopy (10 Years) 05/08/2025 Social HistorySmoke one pack daily for approximately 20 years and quit in 2000Drinks sociallyRetired computer graphic artist Family HistoryMother 69 from ITP and complications following the splenectomyFather 83 from Cancer of the LungTwo brothers both frin DM, ASHD, and Atrial Fibrillation and renal complicationsThree sisters all living each has DM and HTN Odin Alex MD [address] [facility], [address], [place], [address], [place] [employer] 02/10/2025 14:43:30 5 text/html Patient Name: Mesfin [...] Systemic Symptoms:none Medication Reconciliation: from medication list. [id number]: Echocardiogram demonstrated an ejection fraction of approximately [...] Succinate Er. Rate control: controlled ventricular response EUB2OO8-KRLi Criteria: Age > 75 for embolic phenomenon. [...] offered to be evaluated and instructed by yarn winder on weight loss diet. Active Medication ListMethotrexate [...] PrnAlbuterol Sulfate Hfa 90 UG AEROSOL, METERED S7oTdhqsjcnu 25 MG-320 MG (TABLET - ORAL) DailyMetoprolol Succinate Er 25 MG TABLET, FILM COATED, EXTENDED RELEASE One Tablet At DinerPlavix 75 MG TABLET, FILM COATED Once Daily Adverse Drug Reactions ReviewedNo Known Adverse Drug Reactions! Vaccination and Immunization ( ) 2024-08 INFLUENZA( ) 2011-08 PNEUMOVAX(X) 2015-01 PREVNAR 13 GC PREVNAR 20 Needed(X) 2021-08 COVID PrediktImmunizations and Vaccinations Discussed and Implemented if feasible In the Office. Else referred to pharmacies. Surgical History 2024-10 LAD Jjkza2576-16 Distal Phalanx Amputation Rt. Second Zsp1050-68 Left Jjzixwyc6649-60 Right Ydikwxvn1467-03 Right Inguinal Enwxtl4899-71 Pilonidal Cyst times 2 Preventative Testing ( ) 11/10/2024 Optometry( ) 09/24/2024 Albumin 4.2 G/DL( ) 09/24/2024 HAIC 6.7 % H( ) 05/18/2024 PSA 3.2 NG/ML 05/18/2026( ) 03/05/2024 CT Thorax(X) 05/08/2015 Colonoscopy (10 Years) 05/08/2025Preventative Testing Discussed and Scheduled if Acceptable to Patient Social HistorySmoke one pack daily for approximately 20 years and quit in 2000Drinks sociallyRetired computer graphic artist Family HistoryMother 69 from ITP and complications [...] 70 0-130 MG/DL Odin Alex MD [address] [facility], [facility] [address], [place], [address], [place] [employer] 05/24/2025 12:43:07
--- OUTSIDE RECORDS SUMMARY | 2025-09-22 12:17 | XMS_ITS ---
Author Name Sanchez RN, JACKET PREPARER, Bonita Whitten Address [address] [place] [address] Phone [phone] Organization [facility] Care Team Providers Care Inspector Plumbing Name Role Phone Shameka Bradford Unavailable [phone] Reason for Referral Not Available Allergies, adverse [...] mplaint [facility]itional [facility] Mg[facility] 7 Day Disch [place], [place], 12/30/2024 Encntr for f/u exam aft trtm t for cond oth than malig neoplmAcute respiratory failure with hypoxia [facility] 7 Day Disch [place], [place] 12/30/2024 Encntr for f/u exam aft trtm t for cond oth than malig neoplmAcute respiratory failure with hypoxia Transitional Care Mgmt 7 Day Disch [place], [place] 12/30/2024 Encntr for f/u exam aft trtm t for cond oth than malig neoplmAcute respiratory failure with hypoxia Telephone E/M Service; 11-20 min of Medical Discussion (Audio Only) [place], 01/03/2025 Acute respiratory failure with hypoxia Telephone E/M Service; 11-20 min of Medical Discussion (Audio Only) [place], 01/03/2025 Acute respiratory failure with hypoxia Telephone E/M Service; 11-20 min of Medical Discussion (Audio Only) [place], 01/03/2025 Acute respiratory failure with hypoxia Telephone E/M Service; 11-20 min of Medical Discussion (Audio Only) [place], 01/03/2025 Acute respiratory failure with hypoxia Vital Signs Date of Collection Vitals 2024-12-30 12:11:34 Pain Scale - 7.0 {sc ore} 2025-01-03 09:21:47 BP Diastolic - 54.0 mm[Hg]BP Systolic - 134.0 mm[Hg]O2 % BldC Oximetry - 93.0 % Social History Sex Male History of Procedures Procedures Service Procedure code Service date Servicing provider Phone# Transitional Care Mgmt 7 Day Disch [address]29 2024-12-30 No Data Available No Data Avail able Medrec Completed within 30 Days of Discharge 2024-12-30 No Data Available No Data Availa ble Pain Assessment - Pain Documented 1125F 2024-12-30 No Data Available No Data Availa ble Telephone E/M Service; 11-20 min of Medical Discussion (Audio Only) [id number] 2025-01-03 No Data Available No Data Availa [...] Plans 2024-12-30 12:11:34 Pt went to the [facility] due to breathing issues. Was discharged home. Advised to f/u with PCP. Has PCP visit on 01/11/25 and is waiting to get scheduled with a new Pulmonary doctor.Pt Agreed to a post discharge visit with a [facility] Provider: Appointment scheduled with Shameka Bradford RN, JACKET PREPARER on Friday01/03/2025 at 4:30 pm (EST) - 3:30 pm (AIR HOIST OPERATOR).RN reinforced availability of UC provider / for 30 days after discharge and encouraged CB w/ any concerns or if pt is worse in any way. Advised pt to call to reach our staff.Needs/concerns for [facility] provider to address during PD visit - [...] IPAdm it Date: 12/24/24Discharge Date: 12/27/24Hospital name: [facility] diagnosis: ACUTE RESPIRATORY FAILURE WITH HYPOXIA [...] [facility], and no questions or concerns regarding these.
--- OUTSIDE RECORDS SUMMARY | 2025-09-22 12:17 | XMS_ITS | Patient Health Record ---
Author Organization [facility] [place] ([address]) Address [address] [place] [address] Care Team Providers Care Sign Builder Supervisor Name Role Phone Odin Alex MD Primary Care Provider Dr. Jens Crockett Unavailable [phone] Hugo Dempsey Unavailable Allergies No Known Allergies [...] review and pick correct strength-formulatio n from [employer] options. If intended option is not shown, discontinue and re-order from Quick Search* Active Centrum THERAPEUTIC MULTIPLE VITAMINS WITH MINERALS 1 TAB(S) ORALLY ONCE A DAY *Please review and pick correct strength-formulatio n from Vocera Communicationsan options. If intended option is not shown, [...] Polyneuropathy due to type 2 diabetes mellitus (191170855) Type 2 diabetes mellitus with diabetic polyneuropathy (E11.42) Active confirmed Problem Chronic migraine without aura, non-refractory (disorder) (388411539224184) Migraine without aura, not intractable, without status migrainosus (G43.009) Active confirmed Problem Migraine with aura (0135237) Migraine with aura, not intractable, without status migrainosus (G43.109) Active confirmed Problem Chronic migraine without aura, non-intractable (823948640332755) Chronic migraine without aura, not intractable, without status migrainosus (G43.709) Active confirmed Problem Carpal tunnel syndrome (37373051) Carpal tunnel syndrome, bilateral upper limbs (G56.03) Active confirmed Plan Of Treatment No Information Insurance Providers Payer Name Payer Address Payer Phone Subscriber Number Group Number Insured Name Patient Relationship to Insured Coverage Start Date Coverage End Date [employer] [address] [place] [address] [id number] Billy Russ Self - patient is the insured 01/01/202 4 Medical (General) History Medical History History ICD Code HLD HTN PAFib COPD CASTRO Lumbar DDD OA DM2 Surgical History Surgery Date(Month/Year) S/p lumbar FLAVIO S/p cataracts S/p pilonidal cyst removal S/p cardiac ablation
--- OUTSIDE RECORDS SUMMARY | 2025-09-22 12:17 | XMS_ITS | Encounter Summary ---
Author Organization [facility] Address [address] [facility] [address] [place] [address] Care Team Providers Care Microsoft Developer Name Role Phone Odin Alex MD Primary Care Provider Gene De La Garza MD Unavailable [phone] Encounter Details Date Type Department Care Team (Late st Contact Info) Description 03/27/2017 Orders Only Arrhythmia Center Provider, MD Shanell [address] [place], [place] [id number] Social History Tobacco Use Types Packs/Day Years Used Date Smoking Tobacco: Former Cigarettes Q uit: 12/01/2000 Comments:Smoking History Pac ks/day: 20 Packs Alcohol Use Standard Drinks/Week Comments No 0 (1 standard drink = 0.6 oz pur e alcohol) Sex and Gender Information Value Date Recorded Sex Assigned at Not on file Legal Sex Male 10:59 AM MEDICAL ASSISTANT FLOAT Gender Identity Male 12/28/2021 10:54 PM MEDICAL ASSISTANT FLOAT Sexual Orientation Straight 12/28/2021 10 :54 PM MEDICAL ASSISTANT FLOAT documented as of this encounter Plan of [...] on filedocumented in this encounter Care Teams Microsoft Developer Relationship Specialty Start Date End Date Odin Alex MD PCP - General 02/28/17 Gene De La Garza MD [address] [place] [address] Consulting Physician Cardiology 11/26/24 documented as of this encounter
--- OUTSIDE RECORDS SUMMARY | 2025-09-22 12:17 | XMS_ITS | Clinical Summary ---
Author Organization [facility] Address [address] [place] [address] Care Team Providers Care Readers' Advisory Service Librarian Name Role Phone Odin Alex MD Primary Care Provider Gene De La Garza MD Unavailable [phone] Allergies No known active allergies Medications [...] 07/27/2017 S/P ablation of atrial fibrillation 06/28/2017 halfway current use of antiarrhythmic drug Assessment & Plan (02/09/2018 9:52 AM CDT): The patient's ECG today does not indicate any changes that would prohibit the use of Sotalol. As long as they remain on this medication, an ECG will be performed every 6 months for monitoring. Assessment & Plan (12/24/2017 4:09 PM METAL SMELTER): 12-lead ECG today does not demonstrate any [...] Eliquis 5 mg twice daily.He has a PAA2VH7-ULVq score of 2, therefore it is recommended that he remain anticoagulated for thromboprophylaxis. Assessment & Plan (12/24/2017 4:10 PM METAL SMELTER): The patient has a KQA0VF9-AQPw score of 2 (annualized risk of stroke 2.2 %). I have therefore recommended that he remain anticoagulated for thromboprophylaxis. The patient will follow-up with me in 3-4 months for an office visit and twelve- lead ECG. Assessment & Plan (09/29/2017 2:05 PM CDT): The patient has a CPD5FE4-DBFn score of 2 (annualized risk of stroke 2.2 %). I have therefore recommended that he remain anticoagulated for thromboprophylaxis. He will follow-up with me 1 month after cardioversion. Assessment & Plan (07/27/2017 2:59 PM CDT): The patient has a REW1UC1-ADZk score of 2 (annualized risk of stroke 2%). I have therefore recommended that he remain anticoagulated for thromboprophylaxis. The patient will follow up with me in 6 months, unless he has recurrence. Assessment & Plan (06/28/2017 2:51 PM CDT): The patient has a MDS2FJ6-WGZv score of 2 (annualized risk of stroke [...] EKG. Assessment & Plan (12/24/2017 4:09 PM METAL SMELTER): The patient is status post ablation for [...] on file Legal Sex Male 10:59 AM METAL SMELTER Gender Identity Male 12/28/2021 10:54 PM METAL SMELTER Sexual Orientation Straight 12/28/2021 10 :54 PM METAL SMELTER Obstetrics History Last Filed Vital Signs Vital Sign Reading Time Taken Comments Blood Pressure 149/82 11/26/2024 12:09 PM METAL SMELTER Pulse 75 11/26/2024 12:09 PM METAL SMELTER Temperature 36.7 C (98 F) 11/26/2024 12:09 PM METAL SMELTER Respiratory Rate 20 11/26/2024 12:09 PM METAL SMELTER Oxygen Saturation 97% 11/26/2024 12:09 PM METAL SMELTER Inhaled Oxygen Concentration - - Weight 115.7 kg (255 lb) 11/25/2024 12:14 PM METAL SMELTER Height 182.9 cm (6') 11/25/2024 12:14 PM METAL SMELTER Body Mass Index 34.58 11/25/2024 12:14 PM METAL SMELTER Plan of Treatment Health Maintenance Due Date [...] home safety. Medical Devices Implanted Type Area Cytometry Technologist Device Identifier Shelf Expiration Date Model / Serial / Lot [employer] Stent Coronary Drug Eluting Rapid Exchange Synergy Xd [id number] [employer]ium [id number] - [id number] Implanted:Qty: 1 on 11/25/2024 by Gene De La Garza MD at [facility] [employer] 05/05/2026 [id number] / / [id number] Procedures Procedure Name Priority Date/Time Associated Diagnosis Comments CTA ABDOMEN PELVIS W WO CONTRAST Schedule Routine, Read Routine (OP Routine) 10/06/2023 1:35 PM METAL SMELTER Dissection of aorta, unspecified portion of aorta (HCC) from Last 3 Months or Most Recently Relevant to Health Maintenance Results * CTA Abdomen Pelvis (10/06/2023 1:35 PM METAL SMELTER) Anatomical Region Laterality Modality Body N/A Computed Tomogra phy 10/06/2023 2:15 PM METAL SMELTER Impressions 10/07/2023 1:05 PM METAL SMELTER IMPRESSION: 1. Stable small infrarenal penetrating atherosclerotic ulcers. No abdominal aortic aneurysm or evidence of instability. 2. Morphologic features of hepatic fibrosis. Dictated by: Melonie Rodriguez M.D. The radiology attending physician has personally reviewed this study, and had reviewed and/or edited this written report and agrees with it. Electronically signed by: Cuauhtemoc Otero M.D. Narrative 10/07/2023 1:05 PM METAL SMELTER EXAMINATION: CT ANGIOGRAPHY OF THE ABDOMEN AND [...] Health Maintenance Insurance AETNA MEDICARE T MEDICARE [facility] MEDICARE Advance Directives For more information, please contact: [phone] * Full Code (Latest Code Status on File) Date Activated Date Inactivated Comments 11/25/2024 11:59 AM 11/26/2024 5:49 PM Care Teams Readers' Advisory Service Librarian Relationship Specialty Start Date End Date Odin Alex MD PCP - General 02/28/17 Gene De La Garza MD [address] [place] [address] Consulting Physician Cardiology 11/26/24
--- OUTSIDE RECORDS SUMMARY | 2025-09-22 12:18 | XMS_ITS | Clinical Summary ---
Author Organization [facility] Address [address] [place] [address] Care Team Providers Care Repairer Shoe Sticks Name Role Phone Odin Alex MD Primary Care Provider [phone] Leo Wang MD Unavailable [phone] Mckenzie Gilliam MD Unavailable [phone] Source Comments [facility],non-owned Affiliates and Associated Physician Practices is amultiple site organization consisting of ambulatory clinics and hospital sitesin [place], [place], [place] and [place]. This disclosure is being madepursuant to the Care Everywhere program and may not contain all information available regarding this patient. Last updated 18.[facility] Allergies No known active allergies Medications * [...] by mouth once daily 11/05/20 20 Active diphenhydrAMI NE (BENADRYL) 25 MG capsule Take 1 (one) capsule by mouth every 6 hours as needed Active Melatonin 10 MG Take 10 (ten) mg by mouth every evening Active multivitamins (ONE A DAY) capsule Take 1 (one) capsule by mouth once daily Active valsartan-hyd roCHLOROthiaz tyrel (Diovan HCT) 320-25 MG tablet Take 1 (one) tablet by mouth once daily Active acetaminophen (Tylenol) 500 MG tablet Take 1 (one) tablet by mouth 2 times daily Maximum allowable Acetaminophen amount = 4 Grams (4000 mg) / 24 hours. Active loratadine (Claritin) 10 MG tablet Take 1 (one) tablet by mouth once daily Active fluticasone propionate (Flonase) 50 MCG/ACT nasal spray [place] 2 (two) sprays into each nostril once daily as needed Active zolpidem (Ambien) 5 MG tablet Take 1 tablet my mouth at night as directed, may repeat x 1 if needed. 2 tablet 03/07/20 Active Additional Information Patient not taking.Reason: Patient [...] tablet by mouth once 11/25/20 24 Active albuterol HFA (Proventil; Ventolin; Proair) 108 [...] Active ipratropium (Atrovent) 0.06 % nasal spray [place] 2 (two) sprays into each nostril at bedtime 04/22/20 25 Active metFORMIN (Glucophage) 500 MG tablet Take 1 (one) tablet by mouth 2 times daily with morning and evening meal 06/27/20 25 Active Semaglutide (OZEMPIC, 1 MG/DOSE, SC) 1 mg by Injection route every 7 days (once a week) 08/19/20 25 Active montelukast (Singulair) 10 MG tablet Take 1 tablet by mouth once daily 90 tablet 3 09/20/20 25 Active montelukast (Singulair) 10 MG tablet Take 1 tablet by mouth once daily 90 tablet 2 12/24/19 25 025 Discontinued fluconazole (Diflucan) 100 MG tablet Take 1 [...] Eliquis 5 mg twice daily.He has a EWX3UW7-THLl score of 2, therefore it is recommended that he remain anticoagulated for thromboprophylaxis. 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 As long as they remain on this medication, an ECG will be performed every 6 months for monitoring. S/P ablation of atrial fibrillation 06/28/2017 Encounters Date Type Department Care Team Description 09/20/2025 Refill [facility] - Pulmonology [address] [address] Leo Wang MD Refill Request 09/12/2025 Patient Outreach [facility] - Care Coordination [address] [place] [address] Namrata Munoz Outreach Preventive Care 09/06/2025 10:30 AM CDT Office Visit [facility] - ENT [address] [place] [phone] Dinah Leonard, SOLDERER BARREL RIBS Dysphagia, unspecified type (Primary Dx); Hoarseness 09/06/2025 Travel 09/02/2025 Telephone [facility] - ENT [address] [place] [phone] Dinah Leonard, SOLDERER BARREL RIBS Speech Therapy 08/24/2025 Orders Only [facility] - ENT [address] , [address] [phone] Mitzi Ulloa, ANGELIKA-WAXER OPERATOR 08/23/2025 9:00 AM CDT [facility] [address] [place] [phone] Johnson Jimenez MD Dysphagia, unspecified type (Primary Dx); Cerumen debris on tympanic membrane of both ears; Hoarseness 08/23/2025 Travel 08/15/2025 10:22 AM CDT - 08/15/2025 11:59 PM CDT Hospital Encounter [facility] DIAGNOSTIC RAD [address] [place] [address] Johnson Jimenez MD Discharge Disposition: Home or Self Care 07/21/2025 Travel 07/21/2025 Refill [facility] - Pulmonology [address] [facility] [address] [place] [address] Leo Wang MD Refill Request 07/08/2025 Telephone [facility] - ENT [address] [place] [address] Louisa Casas RN Appointment (New pt Tony) from Last 3 Months Immunizations Immunization Administration Dates Next Due INFLUENZA VACCINE, TRIV. (AF LURIA, FLUZONE TRIVALENT; 6MO+) (IIV3) 10/21/2014,10/21/2014,10/08/2013,2012 COVID PFIZER BIVALENT 12Y+ 30mcg/0.3ML 11/04/2022 Covid Pfizer primary Monoval ent 12+ yr 0.3ml 03/19/2022 Covid Pfizer primary monoval ent 12+ yr 0.3mL Purple cap 03/18/2022,08/30/2021,02/25/2021,2020,02/04/2021,01/28/2021 FLU VACCINE QUAD IIV4 SPLIT 0.25 ML IM 08/30/2021,10/20/2015,10/20/2015 INFLUENZA [id number], HISTORIC VACCINE 11/04/2022,0 08/30/2021,11/07/2020 INFLUENZA VACCINE 11/04/2022,08/30/2021,11/07/20 [...] AM CDT Legal Sex Male 10:36 AM BIN PACKER Gender Identity Male 05/31/2021 11:18 AM CDT Sexual Orientation Straight 05/31/2021 11 :18 AM CDT Last Filed Vital Signs Vital Sign Reading Time Taken Comments Blood Pressure 114/71 08/23/2025 8:44 AM CDT Pulse 80 08/23/2025 8:44 AM CDT Temperature 36.3 C (97.4 F) 12/13/2024 3:36 PM BIN PACKER Respiratory Rate 20 12/13/2024 3:36 PM BIN PACKER Oxygen Saturation 96% 12/13/2024 3:36 PM BIN PACKER room air Inhaled Oxygen Concentration - - Weight 112.7 kg (248 lb 6.4 oz) 08/23/2025 8:44 AM CDT Height 182.9 cm (6') 08/23/2025 8:44 AM CDT Body Mass Index 33.69 08/23/2025 8:44 AM CDT Plan of Treatment Upcoming Encounters Date Type Department Care Team (Late st Contact Info) Description 10/18/2025 10:45 AM BIN PACKER Office Visit [facility] - ENT [facility] [place] [phone] Johnson Jimenez MD [address] [facility] [address] [place] [address] Health Maintenance Due Date Last Done Comments [...] Procedure Name Priority Date/Time Associated Diagnosis Comments RI LARYNGOSCOPY,FLEX FIBER,DIAGNOSTIC Routine 08/23/2025 9:52 AM CDT Dysphagia, unspecified type PROC CERUMEN REMOVAL Routine 08/23/2025 9:51 AM CDT Cerumen debris on tympanic membrane of both ears FL ESOPHAGRAM Routine 08/15/2025 11:15 AM CDT Dysphagia, unspecified type from Last 3 Months Results * RI LARYNGOSCOPY,FLEX FIBER,DIAGNOSTIC (08/23/2025 9:52 AM CDT) Narrative Johnson Jimenez MD - 08/23/2025 9:52 AM CDT Johnson Jimenez MD 08/23/2025 10:59 AM Procedure Note Endoscopy Type: Laryngoscopy without stroboscopy 18640 Endoscope: Flexible 4mm Scope Anesthesia: Lidocaine 2% [...] lobe. Mild esophageal dysmotility. > Dictated by Ophthalmology Surgical Technician I, Jennifer Zeng MD have personally reviewed [...] lobe. Mild esophageal dysmotility. > Dictated by Ophthalmology Surgical Technician I, Jennifer Zeng MD have personally reviewed and interpreted this examination/study. > Interpreting Provider: Jennifer Zeng MD on 08/16/2025 10:45 AM Johnson Jimenez MD FLUOROSCOPY ORDERABLES Final Result from Last 3 Months Insurance AET TNA MEDICARE ADV AETNA MEDICARE ADV SELF PAY NO INSURANCE Member Subscriber Plan / Payer (Ef fective for All Dates) Name:Mesfin Russ Member ID:Not on file Relation to Subscriber:Not on file Name:MESFIN RUSS Subscriber ID:Not on file (Home) Address: [address] [place] [phone] Payer ID:Not on file Group ID:Not on file Type:Self Pay Address: [place], [place] AET MEDICARE ADV SELF PAY NO INSURANCE Member Subscriber Plan / Payer (Ef fective for All Dates) Name:Mesfin Russ Member ID:Not on file Relation to Subscriber:Not on file Name:MESFIN RUSS Subscriber ID:Not on file (Home) Address: [address] [place] [phone] Payer ID:Not on file Group ID:Not on file Type:Self Pay Address: [place], [place] * Guarantor: MARIA D RUSS Account Type Relation to Patient Date of Phone Billing Address Personal/Family Spouse Care Teams Repairer Shoe Sticks Relationship Specialty Start Date End Date Odin Alex MD [facility] [place] [address] [address] [place] [phone] PCP - General Internal Medicine 04/12/19 [place] [address] [facility] [address] [place] [address] PCP - [facility]ly [facility] 01/01/25 Mckenzie Gilliam MD [address] [facility] [address] [facility] [address] [place] [phone] Pulmonary Disease 07/21/25
--- OUTSIDE RECORDS SUMMARY | 2025-09-22 12:18 | XMS_ITS | Patient Health Record ---
Author Organization [facility] Address [address] [place], [place] [id number] Care Team Providers Care Block Paver Name Role Phone DANNY SALAZAR Unavailable [phone] Odin Alex Unavailable Unavailable Allergies No Known [...] Medicationterbinafine 250 MG Oral Tablet *Reorder from [employer] for eRx and Interaction Alerts* 04/12/2021 Active Eliquis Active Pravastatin Sodium 40 MG TAKE 1 TABLET BY MOUTH ONCE DAILY Oral; Duration: 90 Days Active Albuterol Sulfate HFA 108 (90 Base) MCG/ACT INHALE 2 PUFFS BY MOUTH EVERY 6 HOURS NEEDED Inhalation; Duration: 25 Days Active Metoprolol Succinate ER 25 MG Oral; Duration: 90 Days Active Ipratropium [place] 0.06 % Nasal; Duration: 14 Days Active [...] [facility] [address] [place] [id number] 07/07/2025 DANNYTIM SALAZAR 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 ; Pain in right foot M79.671 ; Atherosclerosis of [place] arteries of extremities with intermittent claudication, bilateral legs I70.213 and Onychomycosis B35.1 [facility] [address] [place] [id number] 09/08/2025 DANNY SALAZAR 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 ; Pain in right foot M79.671 ; Atherosclerosis of [place] arteries of extremities with intermittent claudication, bilateral legs I70.213 and Onychomycosis B35.1 [facility] [address] [place] [address] [id number] 02/10/2025 DANNYTIM SALAZAR 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 ; Pain in right foot M79.671 ; Atherosclerosis of [place] arteries of extremities with intermittent claudication, bilateral legs I70.213 and Onychomycosis B35.1 [facility] [address] [place] [address] [id number] 02/24/2025 DANNYTIM SALAZAR 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 ; Pain in right foot M79.671 ; Atherosclerosis of [place] arteries of extremities with intermittent claudication, bilateral legs I70.213 and Onychomycosis B35.1 [facility] [address] [place] [address] [id number] 05/05/2025 DANNY SALAZAR 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 02/24/2025 Atherosclerosis of [place] arteries of extremities with intermittent claudication, bilateral legs (ICD-10 - I70.213) 05/05/2025 Atherosclerosis of [place] arteries of extremities with intermittent claudication, bilateral legs (ICD-10 - I70.213) 07/07/2025 Atherosclerosis of [place] arteries of extremities with intermittent claudication, bilateral legs (ICD-10 - I70.213) 09/08/2025 Atherosclerosis of [place] arteries of extremities with intermittent claudication, bilateral [...] [address], [place], [place], [id number], Insurance Providers Payer Name Payer Address Payer Phone Subscriber Number Group Number Insured Name Patient Relationship to Insured Coverage Start Date Coverage End Date [employer] [address] [place] [phone] [id number] MESFIN CASTAÑEDA Self - patient is the insured Medical (General) History Medical History History ICD Code Diabetic
[2025-09-22 12:38] LABS: Alanine Aminotransferase 19 U/L (6-50); Albumin Level 4.2 g/dL (3.5-5.1); Alkaline Phosphatase 59 U/L (38-126); Anion Gap 10 mmol/L (4-12); Aspartate Amino Transferase 28 U/L (17-59); Bilirubin,Total 0.5 mg/dL (0.2-1.3); Blood Urea Nitrogen 48 mg/dL (9-20); CRP 1.5 mg/dL (<1.0); Calcium 9.9 mg/dL (8.4-10.2); Carbon Dioxide 31 mmol/L (22-30); Chloride 100 mmol/L (98-107); Estimated Glomerular Filt Rate 46; Glucose 108 mg/dL (65-110); Potassium 4.3 mmol/L (3.4-5.0); Sodium 141 mmol/L (137-145); Total Protein 7.4 g/dL (6.3-8.2)
== END 2025-09-22 11:04 | disposition home or self-care (01) ==
PROVIDERS: PCP Internal Medicine; Visit Provider Nurse Practitioner Family
DX: Z01.818 Encounter for other preprocedural examination (principal); R94.31 Abnormal electrocardiogram [ECG] [EKG]
CPT/HCPCS: 36415; 80053; 81001; 85025; 85652; 86140; 93005

== ENCOUNTER 2025-10-06 12:12 | Outpatient (CLI) | payer MEDICARE, SELFPAY ==
--- OUTSIDE RECORDS SUMMARY | 2024-05-15 15:30 | XMS_ITS ---
Author Organization [facility] [place] ([address]) Address [address] [place] [address] Care Team Providers Care Bibliographic Services Specialist Name Role Phone Odin Alex MD Primary Care Provider Dr. Jens Crockett Unavailable [phone] Hugo Dempsey Unavailable Unavailable ZZ-Migration, Provider Unavailable Unavailab le REASON FOR VISIT [facility] To [facility] Conversion Encounter Medications Medication SIG (Take, Route, Frequency, Duration) Notes Start Date End Date Status Valsartan 320 MG 1 tab(s) orally once a day Active Pantoprazole Sodium 40 MG 1 tab(s) orally once a day Active Pravastatin Sodium 40 MG 1 tab(s) orally once a day Active Eliquis 5 MG as directed orally 2 times a day Active Metoprolol Succinate ER 100 MG 1 tab(s) orally once a day Active Benadryl Allergy 25 MG 1 cap(s) orally every 6 hours Active Melatonin 10 MG 1 TAB(S) ORALLY ONCE A DAY (AT BEDTIME) *Please review and pick correct strength-formulatio n from Medispan options. If intended option is not shown, discontinue and re-order from Quick Search* Active ALPRAZolam 0.25 MG 1 tab(s) orally every 8 hours Active Montelukast Sodium 10 MG 1 tab(s) orally once a day Active Acetaminophen 500 MG 2 tab(s) orally every 6 hours Active Centrum THERAPEUTIC MULTIPLE VITAMINS WITH MINERALS 1 TAB(S) ORALLY ONCE A DAY *Please review and pick correct strength-formulatio n from Medispan options. If intended option is not shown, discontinue and re-order from Quick Search* Active Flonase Allergy Relief 50 MCG/ACT 1 spray(s) in each nostril once a day Active Encounters Encounter Location Date Provider Diagnosis [facility] [place] [address] 05/15/2024 Provider ZZ-Migration Plan Of Treatment No Information Progress Notes * Billy RUSS LDOB:1944 (80 yo M)Acc No.[id number]:05/15/2024 Patient: S Billy RAMIREZ L Provider: Ana Lilia Salas :1945 A ge:78 Y S ex:Male Date:05/15/2024 Address:[address] [place], [place] [id number] Pcp:Odin Alex MD Subjective: * Chief Complaints: * 1 . Multum To Medispan Conversion Encounter. * Medical History: * Medications: T aking Flonase Allergy Relief 50 MCG/ACT Suspension 1 spray(s) in each nostril once a day , Taking Centrum THERAPEUTIC MULTIPLE VITAMINS WITH MINERALS TABLET 1 TAB(S) ORALLY ONCE A DAY , Notes to Pharmacist: *Please review and pick correct strength-formulation from VibeSecspan options. If intended option is not shown, discontinue and re-order from Quick Search*, Taking Melatonin 10 MG TABLET, EXTENDED RELEASE 1 TAB(S) ORALLY ONCE A DAY (AT BEDTIME) , Notes to Pharmacist: *Please review and pick correct strength-formulation from VibeSecspan options. If intended option is not shown, discontinue and re-order from Quick Search*, Taking Benadryl Allergy 25 MG Capsule 1 cap(s) orally every 6 hours , Taking Acetaminophen 500 MG Tablet 2 tab(s) orally every 6 hours , Taking Montelukast Sodium 10 MG Tablet 1 tab(s) orally once a day , Taking ALPRAZolam 0.25 MG Tablet 1 tab(s) orally every 8 hours , Taking Valsartan 320 MG Tablet 1 tab(s) orally once a day , Taking Metoprolol Succinate ER 100 MG Tablet Extended Release 24 Hour 1 tab(s) orally once a day , Taking Eliquis 5 MG Tablet as directed orally 2 times a day , Taking Pravastatin Sodium 40 MG Tablet 1 tab(s) orally once a day , Taking Pantoprazole Sodium 40 MG Tablet Delayed Release 1 tab(s) orally once a day Objective: * Vitals: Assessment: Plan: * Treatment: * Billing Information: * Visit Code: * Procedure Codes: * Electronic signature of Yolie STINSON-Migration on 10/06/2025 at 07:28 PM CLOTH PRINTER HELPER Sign off status: Pending * Provider: Ana Lilia gonzalez Migration Date: 0 05/15/2024 Generated for Satish benitez/Nicole/yRan on: 12/06/2024 07:28 PM CLOTH PRINTER HELPER
--- OUTSIDE RECORDS SUMMARY | 2025-07-07 05:00 | XMS_ITS ---
Author Organization [facility] Address [address] [place], [place] [phone] Care Team Providers Care Customer Support Technician Name Role Phone DANNY ROSE Unavailable [phone] Odin Alex Unavailable Unavailable REASON FOR VISIT *General care Medications Medication SIG (Take, Route, Frequency, Duration) Notes Start Date End Date Status Valsartan-hydroCHL OROthiazide 160-12.5 MG Tablet Oral; Duration: 90 Days Active Pantoprazole Sodium 40 MG Tablet Delayed Release Oral; Duration: 90 Days Active Clopidogrel Bisulfate 75 MG Tablet Oral; Duration: 90 Days Active Albuterol Sulfate HFA 108 (90 Base) MCG/ACT Aerosol Solution INHALE 2 PUFFS BY MOUTH EVERY 6 HOURS NEEDED Inhalation; Duration: 25 Days Active Pravastatin Sodium 40 MG Tablet TAKE 1 TABLET BY MOUTH ONCE DAILY Oral; Duration: 90 Days Active Metoprolol Succinate ER 25 MG Tablet Extended Release 24 Hour Oral; Duration: 90 Days Active Montelukast Sodium 10 MG Tablet Oral; Duration: 90 Days Active Breztri Aerosphere 160-9-4.8 MCG/ACT Aerosol INHALE 2 PUFFS TWICE DAILY Inhalation; Duration: 90 Days Active Valsartan-hydroCHL OROthiazide 320-25 MG Tablet Oral; Duration: 90 Days Active Ipratropium [place] 0.06 % Solution Nasal; Duration: 14 Days Active terbinafine 250 MG Oral Tablet ORAL terbinafine 250 MG Oral TabletOriginal Medicationterbinafine 250 MG Oral Tablet *Reorder from [employer] for eRx and Interaction Alerts* 04/12/2021 Active Eliquis Active Social History Social History Additional Details Category Social Info Options Details Migrated Social History Migrated Social History Alcohol intake : , History of tobacco use : , Smoking Status : Never smoked Encounters Encounter Location Date Provider Diagnosis [facility] [place] [address] [place], [place] [phone] 07/07/2025 DANNY ROSE 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 ; Pain in right foot M79.671 ; Atherosclerosis of [place] arteries of extremities with intermittent claudication, bilateral legs I70.213 and Onychomycosis B35.1 Assessments Encounter Date Diagnosis (ICD Code) Assessment Notes Treatment Notes Treatment Clinical Notes Section Notes 07/07/2025 Non-pressure chronic ulcer of other part of right foot limited to breakdown of skin (ICD-10 - L97.511) 07/07/2025 Pain in right foot (ICD-10 - M79.671) 07/07/2025 Atherosclerosis of [place] arteries of extremities with intermittent claudication, bilateral legs (ICD-10 - I70.213) 07/07/2025 Onychomycosis (ICD-10 - B35.1) All corns or calluses, as described in the note above, were cut and pared utilizing a #15 blade. 07/07/2025 Other Nails 1-5 Bilateral were debrided extensively with nail nippers and emery board, reducing length and girth to pink healthy tissue with any subungual debris and necrotic tissue removed, Preventing Falls: Care Instructions material was printed, Preventing Falls: Care Instructions material was published Plan Of Treatment Treatment Notes Assessment Notes Onychomycosis All corns or calluse s, as described in the note above, were cut and pared utilizing a #15 blade. Other Nails 1-5 Bilateral were debrided extensively with nail nippers and emery board, reducing length and girth to pink healthy tissue with any subungual debris and necrotic tissue removed, Preventing Falls: Care Instructions material was printed, Preventing Falls: Care Instructions material was published Next Appt Details Follow Up: 9 weeks, Reason: Provider Name:DANNY BELLO, 11/15/2025 12:30:00 PM, [address] [facility] [address], [place], [place], [id number], History and Physical Notes * HPI (History of Present Illness) Category Sub-Category Detail Notes Category Not es HPI General care Patient presents to the office for diabetic foot care. Patient states that their nails are thickened, elongated and painful. Patient states that it is aggravated by shoe gear. Onset is gradual., Patient is taking prescription blood thinners., Date last seen by Dr. Alex was 05/2025., Initials mf Examination Category Sub-Category Detail Notes Category Not [...] bilaterally Temperature gradient: warm to cool bilat erally Progress Notes * MESFIN CASTAÑEDA LDOB:1944 (80 yo M)Acc No.[id number]:07/07/2025 Patient: Irineo MESFIN RAMIREZ Provider: Damian Rose DPM :1945 A ge:80 Y S ex:Male Date:07/07/2025 Address:[address] [place], [place] [id number] Subjective: * Chief Complaints: * * General care * HPI: H PI: General care P atient presents to the office for diabetic foot care. Patient states that their nails are thickened, elongated and painful. Patient states that it is aggravated by shoe gear. Onset is gradual., Patient is taking prescription blood thinners., Date last seen by Dr. Alex was 05/2025., Initials mf. * Medical History: Diabetic Medical History Verified * Family History: F ather: PRN - Father: :: Cancer,,known absent . M other: PRN - Mother: :: Hypertension,,known absent , :: Arthritis,,known absent . B rother: SIB - Brother: . S ister: SIB - Sister: :: Hypertension,,known absent , :: Cancer,,known absent , , :: Arthritis,,known absent , :: Diabetes,,known absent . * Social History: M igrated Social History: M igrated Social History: Alcohol intake : , History of tobacco use : , Smoking Status : Never smoked. * Medications: T akingEliquis terbinafine 250 MG Oral Tablet ORAL , Notes to Pharmacist: terbinafine 250 MG Oral TabletOriginal Medicationterbinafine 250 MG Oral Tablet *Reorder from [employer] for eRx and Interaction Alerts*Breztri Aerosphere 160-9-4.8 MCG/ACT Aerosol INHALE 2 PUFFS TWICE DAILY Inhalation Valsartan-hydroCHLOROthiazide 320-25 MG Tablet Oral Ipratropium [place] 0.06 % Solution Nasal Metoprolol Succinate ER 25 MG Tablet Extended Release 24 Hour Oral Montelukast Sodium 10 MG Tablet Oral Clopidogrel Bisulfate 75 MG Tablet Oral Valsartan-hydroCHLOROthiazide 160-12.5 MG Tablet Oral Pantoprazole Sodium 40 MG Tablet Delayed Release Oral Albuterol Sulfate HFA 108 (90 Base) MCG/ACT Aerosol Solution INHALE 2 PUFFS BY MOUTH EVERY 6 HOURS NEEDED Inhalation Pravastatin Sodium 40 MG Tablet TAKE 1 TABLET BY MOUTH ONCE DAILY Oral Medication List reviewed and reconciled with the patientTaking Leon Taking terbinafine 250 MG Oral Tablet ORAL , Notes to Pharmacist: terbinafine 250 MG Oral TabletOriginal Medicationterbinafine 250 MG Oral Tablet *Reorder from [employer] for eRx and Interaction Alerts*Taking Breztri Aerosphere 160-9-4.8 MCG/ACT Aerosol INHALE 2 PUFFS TWICE DAILY Inhalation Taking Valsartan-hydroCHLOROthiazide 320-25 MG Tablet Oral Taking Ipratropium [place] 0.06 % Solution Nasal Taking Metoprolol Succinate ER 25 MG Tablet Extended Release 24 Hour Oral Taking Montelukast Sodium 10 MG Tablet Oral Taking Clopidogrel Bisulfate 75 MG Tablet Oral Taking Valsartan-hydroCHLOROthiazide 160-12.5 MG Tablet Oral Taking Pantoprazole Sodium 40 MG Tablet Delayed Release Oral Taking Albuterol Sulfate HFA 108 (90 Base) MCG/ACT Aerosol Solution INHALE 2 PUFFS BY MOUTH EVERY 6 HOURS NEEDED Inhalation Taking Pravastatin Sodium 40 MG Tablet TAKE 1 TABLET BY MOUTH ONCE DAILY Oral Medication List reviewed and reconciled with the patient Objective: * Examination: C onstitutional: Constitutional T he [...] - M79.671 3 . A therosclerosis of lum[place] arteries of extremities with intermittent claudication, bilateral legs - I70.213? 4. O nychomycosis - B35.1 Plan: * Treatment: 2. O thers Notes: Nails 1-5 Bilateral were debrided extensively with nail nippers and emery board, reducing length and girth to pink healthy tissue with any subungual debris and necrotic tissue removed, Preventing Falls: Care Instructions material was printed, Preventing Falls: Care Instructions material was published * Preventive Medicine: Screenings: F all risk screening Fall Risk Assessment: T wo or more falls with injury in the past year Plan of Care: D ocumented Type of fall plan of care: B alance, strength and gait training or instruction provided, Referral to exercise program for balance, strength or gait training * Follow Up: 9 weeks Billing Information: * Visit Code: 72004 Office Visit, Est Pt., Level 3. * Procedure Codes: * Electronic signature of DANNY ROSE DPM on 10/06/2025 at 07:28 PM ALLIED HEALTH PROFESSIONAL Sign off status: Pending * Provider: Damian Rose DPM Date: 0 07/07/2025 Generated for Satish benitez/Nicole/Ryan on: 12/06/2024 07:28 PM ALLIED HEALTH PROFESSIONAL
--- OUTSIDE RECORDS SUMMARY | 2025-09-08 05:20 | XMS_ITS ---
Author Organization [facility] Address [address] [place], [place] [id number] Care Team Providers Care Manager Of Allied Health Services Name Role Phone DANNY ROSE Unavailable [phone] Odin Alex Unavailable Unavailable Allergies No Known Allergies REASON FOR VISIT *General care Medications Medication SIG (Take, Route, Frequency, Duration) Notes Start Date End Date Status Pantoprazole Sodium 40 MG Tablet Delayed Release Oral; Duration: 90 Days Active Valsartan-hydroCHL OROthiazide 160-12.5 MG Tablet Oral; Duration: 90 Days Active Clopidogrel Bisulfate 75 MG Tablet Oral; Duration: 90 Days Active Montelukast Sodium 10 MG Tablet Oral; Duration: 90 Days Active Albuterol Sulfate HFA 108 (90 Base) MCG/ACT Aerosol Solution INHALE 2 PUFFS BY MOUTH EVERY 6 HOURS NEEDED Inhalation; Duration: 25 Days Active Breztri Aerosphere 160-9-4.8 MCG/ACT Aerosol INHALE 2 PUFFS TWICE DAILY Inhalation; Duration: 90 Days Active terbinafine 250 MG Oral Tablet ORAL terbinafine 250 MG Oral TabletOriginal Medicationterbinafine 250 MG Oral Tablet *Reorder from [employer] for eRx and Interaction Alerts* 04/12/2021 Active Metoprolol Succinate ER 25 MG Tablet Extended Release 24 Hour Oral; Duration: 90 Days Active Ipratropium [place] 0.06 % Solution Nasal; Duration: 14 Days Active Valsartan-hydroCHL OROthiazide 320-25 MG Tablet Oral; Duration: 90 Days Active Eliquis Active Pravastatin Sodium 40 MG Tablet TAKE 1 TABLET BY MOUTH ONCE DAILY Oral; Duration: 90 Days Active Social History Social History Additional Details Category Social Info Options Details Migrated Social History Migrated Social History Alcohol intake : , History of tobacco use : , Smoking Status : Never smoked Vital Signs Height 73.00 in 09/08/2025 Height-cm 185.42 cm 09/08/2025 Encounters Encounter Location Date Provider Diagnosis [facility] [place] [address] [place], [place] [phone] 09/08/2025 DANNY ROSE 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 ; Pain in right foot M79.671 ; Atherosclerosis of [place] arteries of extremities with intermittent claudication, bilateral legs I70.213 and Onychomycosis B35.1 Assessments Encounter Date Diagnosis (ICD Code) Assessment Notes Treatment Notes Treatment Clinical Notes Section Notes 09/08/2025 Non-pressure chronic ulcer of other part of right foot limited to breakdown of skin (ICD-10 - L97.511) 09/08/2025 Pain in right foot (ICD-10 - M79.671) 09/08/2025 Atherosclerosis of [place] arteries of extremities with intermittent claudication, bilateral legs (ICD-10 - I70.213) 09/08/2025 Onychomycosis (ICD-10 - B35.1) All corns or calluses, as described in the note above, were cut and pared utilizing a #15 blade. 09/08/2025 Other Nails 1-5 Bilateral were debrided extensively [...] Name:DANNY BELLO, 11/15/2025 12:30:00 PM, [address] [facility] [address], [place], [phone], History and Physical Notes * HPI (History [...] Date last seen by Dr. Alex was May 2025, Initials JMR He is also c/o burning pain in the balls of both feet for several months. It is getting worse. Examination Category Sub-Category Detail Notes Category Not [...] in bilateral lower extremities. Pain on palpation 2nd interspace kyle Foot Structure The foot structure i s [...] * MESFIN CASTAÑEDA LDOB:1944 (80 yo M)Acc No.[id number]:09/08/2025 Patient: Irineo HÉCTORPRANEETH MESFIN Tomas Provider: Damian Rose DPM :1945 A ge:80 Y S ex:Male Date:09/08/2025 Address:[address] [place], [place] [phone] Subjective: * Chief Complaints: * * General care * HPI: H PI: General care P bibiana presents to the office for diabetic foot care. Patient states that their nails are thickened, elongated and painful. Patient states that it is aggravated by shoe gear. Onset is gradual., Patient is taking prescription blood thinners., Date last seen by Dr. Alex was May 2025, Initials JMR. He is also c/o burning pain in the balls of both feet for several months. It is getting worse. * Medical History: Diabetic Medical History Verified * Surgical History: No Surgical History documented. Surgical History verified. * Hospitalization/Major Diagno stic Procedure: No Hospitalization Documented. Hospitalization Verified. * Family History: F ather: PRN - Father: :: Cancer,,known absent . M other: PRN - Mother: :: Hypertension,,known absent , :: Arthritis,,known absent . B rother: SIB - Brother: . S ister: SIB - Sister: :: Hypertension,,known absent , :: Cancer,,known absent , , :: Arthritis,,known absent , :: Diabetes,,known absent . F amily History Verified.. * Social History: M igrated Social History: M igrated Social History: Alcohol intake : , History of tobacco use : , Smoking Status : Never smoked. S ocial History Verified. * Medications: T akingEliquis terbinafine 250 MG Oral Tablet ORAL , Notes to Pharmacist: terbinafine 250 MG Oral TabletOriginal Medicationterbinafine 250 MG Oral Tablet *Reorder from [employer] for eRx and Interaction Alerts*Breztri Aerosphere 160-9-4.8 MCG/ACT Aerosol INHALE 2 PUFFS TWICE DAILY Inhalation Valsartan-hydroCHLOROthiazide 320-25 MG Tablet Oral Ipratropium [place] 0.06 % Solution Nasal Metoprolol Succinate ER [...] List reviewed and reconciled with the patientTaking Eliquis Taking terbinafine 250 MG Oral Tablet ORAL , Notes to Pharmacist: terbinafine 250 MG Oral TabletOriginal Medicationterbinafine 250 MG Oral Tablet *Reorder from [employer] for eRx and Interaction Alerts*Taking Breztri Aerosphere 160-9-4.8 MCG/ACT Aerosol INHALE 2 PUFFS TWICE DAILY Inhalation Taking Valsartan-hydroCHLOROthiazide 320-25 MG Tablet Oral Taking Ipratropium [place] 0.06 % Solution Nasal Taking Metoprolol Succinate [...] reconciled with the patient * Allergies: N .KKaryAllergies Verified. Objective: * Vitals: H t: 73.00 in, Ht-cm: 185.42 cm. * Examination: C onstitutional: Constitutional T he [...] be normal bilaterally . Pain on palpation 2 nd interspace kyle. Gait T here is normal gait noted [...] Falls: Care Instructions material was published * Follow Up: 9 weeks Billing Information: * Visit Code: 25674 Office Visit, Est Pt., Level 3. * Procedure Codes: * Electronic signature of DANNY ROSE DPM on 10/06/2025 at 07:29 PM [employer] Sign off status: Pending * Provider: Damian Rose DPM Date: Generated for Satish benitez/Nicole/Ryan on: 12/06/2024 07:29 PM [employer]
--- NOTE | 2025-10-06 13:00 | NEURO_ITS ---
Clinical note: The patient is 80-year-old with history of diabetes mellitus, has complaints of paresthesias in both upper limbs and pain in the neck and shoulders. On a brief examination no focal muscle wasting or fasciculations were seen in both upper limbs. EMG nerve can study results are given below. Summary of findings: 1. Left and right median motor distal latencies mildly prolonged right and normal on the left side, amplitudes were moderately decreased. Conduction velocities from elbow to wrist were mildly decreased in the right and normal on the left side. 2. Left and right ulnar motor distal latencies and amplitudes and conduction velocity within acceptable normal limits. 3. Left and right median ulnar motor he also performed while recording over 2nd lumbrical and 2nd interossei which show the median distal latency is mildly prolonged compared to the ulnar motor distal latency on the left and compatible on the right side. 4. Right median palmar sensory distal latencies are moderately prolonged and amplitude is significantly decreased. Bilateral median sensory digital onsets were absent. Left and right ulnar palmar distal latency is mildly prolonged on the right and normal on the left side wears amplitudes were significantly decreased. Ulnar digital sensory were also absent. Left radial sensory distal latency was normal but amplitude was significant decreased. Right radial sensory was absent 5. EMG examination was performed with various muscles in C5 to T1 distribution examined in both upper limbs. Mild to moderate decreased motor unit recruitment was noted in the abductor pollicis brevis. Remainder of the muscles did not show any denervation changes. Motor unit amplitude, duration and recruitment pattern are shown below. Impression: EMG and nerve conduction studiesof both upper limbs show as follows 1. Moderate bilateral carpal tunnel syndrome, right more than left side. No denervation changes but mild to moderate decreased recruitment was noted in the abductor pollicis brevis on both sides. 2. 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 Clinical correlation is recommended. Francisco Javier Lam MD, FAAN, FAANEM Neurology/ Electrodiagnostic Medicine Nerve Conduction Studies Motor Nerve Results ? Latency Amplitude F-Lat Segment Distance CV Comment Site (ms) (mV) (ms) (cm) (m/s) Left Med/Ulnar(Lum-INT) Motor ? Median (Lumb I) Wrist 4.0 1.03 ? Ulnar (Dorsal Interossei IV) Wrist 3.5 3.3 Right Med/Ulnar(Lum-INT) Motor ? Median (Lumb I) Wrist 4.0 1.28 ? Ulnar (Dorsal Interossei IV) Wrist 3.6 4.2 Left Median (APB) Motor Wrist 4.4 3.1 Elbow 9.0 3.0 Elbow-Wrist 230 50 Right Median (APB) Motor Wrist 4.8 2.7 Elbow 9.7 1.65 Elbow-Wrist 225 46 Left Ulnar (ADM) Motor Wrist 3.1 7.2 Bel Elbow 7.6 6.3 Bel Elbow-Wrist 210 47 Abv Elbow 9.0 6.2 Abv Elbow-Bel Elbow 70 50 Right Ulnar (ADM) Motor Wrist 3.1 9.0 Bel Elbow 7.1 7.6 Bel Elbow-Wrist 220 55 Abv Elbow 8.8 7.0 Abv Elbow-Bel Elbow 75 44 Sensory Nerve Results ? Latency (Peak) Amplitude (P-P) Segment Distance CV Comment Site (ms) (?V) (cm) (m/s) Left Median DigIII Sensory Wrist-Dig III NR NR Wrist-Dig III 145 NR Right Median DigIII Sensory Wrist-Dig III NR NR Wrist-Dig III 140 NR Left Median-Ulnar Palmar Sensory ? Median Palm-Wrist 3.1 3 Palm-Wrist 80 26 ? Ulnar Palm-Wrist 2.0 4 Palm-Wrist 80 40 Right Median-Ulnar Palmar Sensory ? Median Palm-Wrist 2.9 2 Palm-Wrist 80 28 ? Ulnar Palm-Wrist 2.3 2 Palm-Wrist 80 35 Left Radial Sensory Forearm-Wrist 2.2 8 Forearm-Wrist 100 45 Right Radial Sensory Forearm-Wrist NR NR Forearm-Wrist 100 NR Left Ulnar Sensory Wrist-Dig V NR NR Wrist-Dig V 125 NR Right Ulnar Sensory Wrist-Dig V NR NR Wrist-Dig V 135 NR Electromyography ?Side Muscle Nerve Ins Act Fibs Psw Amp Dur Recrt Comment Right 1stDorInt Ulnar Nml Nml Nml Nml Nml Nml Left 1stDorInt Ulnar Nml Nml Nml Nml Nml Nml Left Abd Poll Brev Median Nml Nml Nml Incr >12ms +1 Right Abd Poll Brev Median Nml Nml Nml Decr >12ms +2 Right Biceps Musculocut Nml Nml Nml Nml Nml Nml Left Biceps Musculocut Nml Nml Nml Nml Nml Nml Right Deltoid Axillary Nml Nml Nml Nml Nml Nml Left Deltoid Axillary Nml Nml Nml Nml Nml Nml Left Ext Digitorum Radial (Post Int) Nml Nml Nml Nml Nml Nml Right Ext Digitorum Radial (Post Int) Nml Nml Nml Nml Nml Nml Right Ext Indicis Radial (Post Int) Nml Nml Nml Nml Nml Nml Left Ext Indicis Radial (Post Int) Nml Nml Nml Nml Nml Nml Left ExtCarUln Radial (Post Int) Nml Nml Nml Nml Nml Nml Right ExtCarUln Radial (Post Int) Nml Nml Nml Nml Nml Nml Left FlexCarRad Median Nml Nml Nml Nml Nml Nml Right FlexCarRad Median Nml Nml Nml Nml Nml Nml Left FlexDigProf Ulnar Nml Nml Nml Nml Nml Nml Right FlexDigProf Ulnar Nml Nml Nml Nml Nml Nml Left FlexPolLong Median (Ant Int) Nml Nml Nml Nml Nml Nml Right FlexPolLong Median (Ant Int) Nml Nml Nml Nml Nml Nml Left Triceps Radial Nml Nml Nml Nml Nml Nml Right Triceps Radial Nml Nml Nml Nml Nml Nml
--- OUTSIDE RECORDS SUMMARY | 2025-10-06 19:28 | XMS_ITS | Clinical Summary ---
Author Organization [facility] Address [address] [place] [address] Phone Care Team Providers Care Wheel Braider Name Role Phone Unavailable Primary Care Provider Unavailabl e Allergies No known active allergies Medications escitalopram (LEXAPRO) 10 MG Tablet Take 10 mg by mouth daily. Active furosemide (LASIX) 80 MG Tablet Take 80 mg by mouth daily. Active ipratropium (ATROVENT) 0.06 % Solution 2 Sprays by Nasal route 3 times daily. Active metFORMIN (GLUCOPHAGE) 500 MG Tablet Take 500 mg by mouth 2 times daily (with meals). Active Semaglutide (OZEMPIC, 1 MG/DOSE, SC) 1 mg by Subcutaneous route once a week. TAKES ON WEDNESDAYS. INSTRUCTED TO HOLD FOR 7 DAYS PRIOR TO 10/14/25 SURGERY. Active roflumilast (DALIRESP) 500 MCG Tablet Take 500 mcg by mouth daily. Active albuterol 108 (90 Base) MCG/ACT Aerosol Solution take 2 Puffs by inhalation every 4 hours as needed for Wheezing or Cough. Active OXYGEN TANK PORTABLE 2 L by Does not apply route nightly. Use as directed WIT BIPAP USE Active Budeson-Glycopy rrol-Formoterol 160-9-4.8 MCG/ACT Aerosol take 1 Puff by inhalation 2 times daily. Active loratadine (Claritin) 10 MG Tablet Take 10 mg by mouth daily. Active fluticasone (FLONASE) 50 MCG/ACT Suspension 1 [place] by Nasal route daily. Use in each nostril as directed. Active multiple vitamin with minerals (CENTRUM SILVER) Tablet Take 1 Tablet by mouth daily. Active melatonin 10 MG Capsule Take 10 mg by mouth nightly. Active acetaminophen (TYLENOL) 500 MG Tablet Take 500 mg by mouth every 4 hours as needed for Mild or more severe pain. Active montelukast (SINGULAIR) 10 MG Tablet Take 10 mg by mouth every evening. Active ALPRAZolam (XANAX) 0.25 MG Tablet Take 0.25 mg by mouth nightly as needed for Sleep. Active valsartan-hydro CHLOROthiazide (DIOVAN-HCT) 320-25 MG Tablet Take 1 Tablet by mouth daily. Active metoprolol Succinate (TOPROL-XL) 100 MG TABLET SR 24 HR Take 100 mg by mouth daily. Active apixaban (ELIQUIS) 5 MG Tablet Take 5 mg by mouth 2 times daily. Active pravastatin (PRAVACHOL) 40 MG Tablet Take 40 mg by mouth every evening. Active pantoprazole (PROTONIX) 40 MG Tablet Delayed Response Take 40 mg by mouth every evening. Active Encounters Date Type Department Care Team Description 10/04/2025 Travel from Last 3 Months Family History Medical History Relation Name Comments Cancer Father LUNG Relation Name Status Comments Father Mother Social History Tobacco Use Types Packs/Day Years Used Date Smoking Tobacco: Former Cigarettes 0.5 40 1 981 - 2020 Smokeless Tobacco: Never Alcohol Use Standard Drinks/Week Comments Yes 0 (1 standard drink = 0.6 oz pur e alcohol) I DRINK ONCE MONTHLY Sex and Gender Information Value Date Recorded Sex Assigned at Not on file Legal Sex Male 10:09 AM DIRECTOR OF CULTURE Gender Identity Not on file Sexual Orientation Not on file Last Filed Vital Signs Vital Sign Reading Time Taken Comments Blood Pressure - - Pulse - - Temperature - - Respiratory Rate - - Oxygen Saturation - - Inhaled Oxygen Concentration - - Weight 105.7 kg (233 lb) 10/04/2025 1:00 PM DIRECTOR OF CULTURE Height 182.9 cm (6') 10/04/2025 1:00 PM DIRECTOR OF CULTURE Body Mass Index 31.6 10/04/2025 1:00 PM DIRECTOR OF CULTURE Plan of Treatment Upcoming Encounters Date Type Department Care Team (Late st Contact Info) Description 10/14/2025 10:10 AM DIRECTOR OF CULTURE Hospital Encounter [facility] [address] [facility] [place] [address] Andrew Mabry MD [address] [place] [address] 10/14/2025 10:10 AM DIRECTOR OF CULTURE - 10/14/2025 11:40 AM DIRECTOR OF CULTURE Surgery [facility] Periop [address] [facility] [place] [address] Andrew Mabry MD [address], [place] [address] MINIMALLY INVASIVE LUMBAR DECOMPRESSIONOF BILATERAL LUMBAR TWO-THREE, LUMBAR THREE-FOUR, C-ARM, PLASMA BLADE, CAROLYN- TAMY CONF FOR 10/14 @ 1030/DS 10/05 Scheduled Procedures Name Priority Associated Diagnoses Date/Ti me MINIMALLY INVASIVE LUMBAR DECOMPRESSION LUMBAR STENOSIS WITH NEUOGENIC CLAUDICATION, ENCOUNTER FOR EXAMINATION FOR NORMAL COMPARISON CONTROL CLINICAL RESEARCH PROGRAM 10/14/2025 10:10 AM DIRECTOR OF CULTURE Insurance MEDICARE C AETNA
--- OUTSIDE RECORDS SUMMARY | 2025-10-06 19:28 | XMS_ITS | Clinical Summary ---
Author Organization [facility] Address [address] [place] [address] Care Team Providers Care Manager Mission Name Role Phone Odin Alex MD Primary Care Provider Gene De La Garza MD Unavailable [phone] Allergies No known active allergies Medications [...] 07/27/2017 S/P ablation of atrial fibrillation 06/28/2017 correction current use of antiarrhythmic drug Assessment & Plan (02/09/2018 9:52 AM CDT): The patient's ECG today does not indicate any changes that would prohibit the use of Sotalol. As long as they remain on this medication, an ECG will be performed every 6 months for monitoring. Assessment & Plan (12/24/2017 4:09 PM MUNITIONS HANDLER SUPERVISOR): 12-lead ECG today does not demonstrate any [...] Eliquis 5 mg twice daily.He has a DXY2RT0-AWOd score of 2, therefore it is recommended that he remain anticoagulated for thromboprophylaxis. Assessment & Plan (12/24/2017 4:10 PM MUNITIONS HANDLER SUPERVISOR): The patient has a XBD5VR0-QDBh score of 2 (annualized risk of stroke 2.2 %). I have therefore recommended that he remain anticoagulated for thromboprophylaxis. The patient will follow-up with me in 3-4 months for an office visit and twelve- lead ECG. Assessment & Plan (09/29/2017 2:05 PM CDT): The patient has a OVG3LG9-IEZl score of 2 (annualized risk of stroke 2.2 %). I have therefore recommended that he remain anticoagulated for thromboprophylaxis. He will follow-up with me 1 month after cardioversion. Assessment & Plan (07/27/2017 2:59 PM CDT): The patient has a EYH3BC9-LAWw score of 2 (annualized risk of stroke 2%). I have therefore recommended that he remain anticoagulated for thromboprophylaxis. The patient will follow up with me in 6 months, unless he has recurrence. Assessment & Plan (06/28/2017 2:51 PM CDT): The patient has a HWP3QP8-NWCh score of 2 (annualized risk of stroke [...] EKG. Assessment & Plan (12/24/2017 4:09 PM MUNITIONS HANDLER SUPERVISOR): The patient is status post ablation for [...] recommended that he follow up with Dr. iDxon for reconsideration of ablation. Hypertension 07/24/2014 Overview [...] on file Legal Sex Male 10:59 AM MUNITIONS HANDLER SUPERVISOR Gender Identity Male 12/28/2021 10:54 PM MUNITIONS HANDLER SUPERVISOR Sexual Orientation Straight 12/28/2021 10 :54 PM MUNITIONS HANDLER SUPERVISOR Last Filed Vital Signs Vital Sign Reading Time Taken Comments Blood Pressure 149/82 11/26/2024 12:09 PM MUNITIONS HANDLER SUPERVISOR Pulse 75 11/26/2024 12:09 PM MUNITIONS HANDLER SUPERVISOR Temperature 36.7 C (98 F) 11/26/2024 12:09 PM MUNITIONS HANDLER SUPERVISOR Respiratory Rate 20 11/26/2024 12:09 PM MUNITIONS HANDLER SUPERVISOR Oxygen Saturation 97% 11/26/2024 12:09 PM MUNITIONS HANDLER SUPERVISOR Inhaled Oxygen Concentration - - Weight 115.7 kg (255 lb) 11/25/2024 12:14 PM MUNITIONS HANDLER SUPERVISOR Height 182.9 cm (6') 11/25/2024 12:14 PM MUNITIONS HANDLER SUPERVISOR Body Mass Index 34.58 11/25/2024 12:14 PM MUNITIONS HANDLER SUPERVISOR Plan of Treatment Health Maintenance Due Date [...] Chronic Pain Care Plan Chronic Care Management No Diana Mcfarland RN Note: Problem: Chronic Pain Goals: 1. [...] home safety. Medical Devices Implanted Type Area Mechanical Engineering Draftsperson Device Identifier Shelf Expiration Date Model / Serial / Lot Cymax Stent Coronary Drug Eluting Rapid Exchange Synergy Xd [id number] [place] Chromium [id number] - [id number] Implanted:Qty: 1 on 11/25/2024 by Gene De La Garza MD at [facility] Cymax 05/05/2026 [id number] / / [id number] Procedures Procedure Name Priority Date/Time Associated Diagnosis Comments CTA ABDOMEN PELVIS W WO CONTRAST Schedule Routine, Read Routine (OP Routine) 10/06/2023 1:35 PM MUNITIONS HANDLER SUPERVISOR Dissection of aorta, unspecified portion of aorta (HCC) from Last 3 Months or Most Recently Relevant to Health Maintenance Results * CTA Abdomen Pelvis (10/06/2023 1:35 PM MUNITIONS HANDLER SUPERVISOR) Anatomical Region Laterality Modality Body N/A Computed Tomogra phy 10/06/2023 2:15 PM MUNITIONS HANDLER SUPERVISOR Impressions 10/07/2023 1:05 PM MUNITIONS HANDLER SUPERVISOR IMPRESSION: 1. Stable small infrarenal penetrating atherosclerotic ulcers. No abdominal aortic aneurysm or evidence of instability. 2. Morphologic features of hepatic fibrosis. Dictated by: Melonie Rodriguez M.D. The radiology attending physician has personally reviewed this study, and had reviewed and/or edited this written report and agrees with it. Electronically signed by: Cuauhtemoc Otero M.D. Narrative 10/07/2023 1:05 PM MUNITIONS HANDLER SUPERVISOR EXAMINATION: CT ANGIOGRAPHY OF THE ABDOMEN AND [...] Health Maintenance Insurance AETNA MEDICARE T MEDICARE [facility] MEDICARE Advance Directives For more information, please contact: [phone] * Full Code (Latest Code Status on File) Date Activated Date Inactivated Comments 11/25/2024 11:59 AM 11/26/2024 5:49 PM Care Teams Manager Mission Relationship Specialty Start Date End Date Odin Alex MD PCP - General 02/28/17 Gene De La Garza MD [address] [place] [address] Consulting Physician Cardiology 11/26/24
--- OUTSIDE RECORDS SUMMARY | 2025-10-06 19:28 | XMS_ITS | Encounter Summary ---
Author Organization [facility] Address [address] [facility] [address] [place] [address] Care Team Providers Care Rand Butter Name Role Phone Odin Alxe MD Primary Care Provider Gene De La Garza MD Unavailable [phone] Encounter Details Date Type Department Care Team (Late st Contact Info) Description 03/27/2017 Orders Only Arrhythmia Center Provider, MD Shanell [address] [place], [place] [id number] Social History Tobacco Use Types Packs/Day Years Used Date Smoking Tobacco: Former Cigarettes Q uit: 12/01/2000 Comments:Smoking History Pac ks/day: 20 Packs Alcohol Use Standard Drinks/Week Comments No 0 (1 standard drink = 0.6 oz pur e alcohol) Sex and Gender Information Value Date Recorded Sex Assigned at Not on file Legal Sex Male 10:59 AM OVERCASTER Gender Identity Male 12/28/2021 10:54 PM OVERCASTER Sexual Orientation Straight 12/28/2021 10 :54 PM OVERCASTER documented as of this encounter Functional Status documented as of this encounter Plan of [...] on filedocumented in this encounter Care Teams Rand Butter Relationship Specialty Start Date End Date Odin Alex MD PCP - General 02/28/17 Gene De La Garza MD [address] [place] [address] Consulting Physician Cardiology 11/26/24 documented as of this encounter
--- OUTSIDE RECORDS SUMMARY | 2025-10-06 19:29 | XMS_ITS ---
Author Name Sanchez RN, METALWORKING INSTRUCTOR, Bonita Whitten Address [address] [place] [address] Phone [phone] Organization [facility] Care Team Providers Care Butter Maker Name Role Phone Shameka Bradford Unavailable [phone] Reason for Referral Not Available Allergies, adverse [...] mplaint [facility] [place], 12/30/2024 Encntr for f/u exam aft trtm t for cond oth than malig neoplmAcute respiratory failure with hypoxia [facility] [place], [facility] 12/30/2024 Encntr for f/u exam aft trtm t for cond oth than malig neoplmAcute respiratory failure with hypoxia [facility] 7 Day Dis[facility] [place], [facility] 12/30/2024 Encntr for f/u exam aft trtm t for cond oth than malig neoplmAcute respiratory failure with hypoxia Telephone E/M Service; 11-20 min of Medical Discussion (Audio Only) [place], 01/03/2025 Acute respiratory failure with hypoxia Telephone E/M Service; 11-20 min of Medical Discussion (Audio Only) [place], 01/03/2025 Acute respiratory failure with hypoxia Telephone E/M Service; 11-20 min of Medical Discussion (Audio Only) [place], 01/03/2025 Acute respiratory failure with hypoxia Telephone E/M Service; 11-20 min of Medical Discussion (Audio Only) [place], 01/03/2025 Acute respiratory failure with hypoxia Vital Signs Date of Collection Vitals 2024-12-30 12:11:34 Pain Scale - 7.0 {sc ore} 2025-01-03 09:21:47 BP Diastolic - 54.0 mm[Hg]BP Systolic - 134.0 mm[Hg]O2 % BldC Oximetry - 93.0 % Social History Sex Male History of Procedures Procedures Service Procedure code Service date Servicing provider Phone# [facility] 7 Day Disch [id number] 2024-12-30 No Data Available No Data Avail able Medrec Completed within 30 Days of Discharge 2024-12-30 No Data Available No Data Availa ble Pain Assessment - Pain Documented [id number] 2024-12-30 No Data Available No Data Availa ble Telephone E/M Service; 11-20 min of Medical Discussion (Audio Only) [id number] 2025-01-03 No Data Available No Data Availa [...] Plans 2024-12-30 12:11:34 Pt went to the [facility] due to breathing issues. Was discharged home. Advised to f/u with PCP. Has PCP visit on 01/11/25 and is waiting to get scheduled with a new Pulmonary doctor.Pt Agreed to a post discharge visit with a [facility] Provider: Appointment scheduled with Shameka Bradford RN, METALWORKING INSTRUCTOR on Friday01/03/2025 at 4:30 pm (EST) - 3:30 pm (ACQUISITION PROFESSIONAL).RN reinforced availability of UC provider / for 30 days after discharge and encouraged CB w/ any concerns or if pt is worse in any way. Advised pt to call to reach our staff.Needs/concerns for [facility] provider to address during PD visit [...] it Date: 12/24/24Discharge Date: 12/27/24Hospital name: [facility] diagnosis: ACUTE RESPIRATORY FAILURE WITH HYPOXIA 2025-01-03 [...] [facility], and no questions or concerns regarding these.
--- OUTSIDE RECORDS SUMMARY | 2025-10-06 19:29 | XMS_ITS | Patient Health Record ---
Author Organization [facility] Address [address] [place], [place] [id number] Care Team Providers Care Quill Winder Name Role Phone DANNY SALAZAR Unavailable [phone] Odin Alex Unavailable Unavailable Allergies No Known [...] Medicationterbinafine 250 MG Oral Tablet *Reorder from [employer] for eRx and Interaction Alerts* 04/12/2021 Active [...] Hour Oral; Duration: 90 Days Active Ipratropium [place] 0.06 % Solution Nasal; Duration: 14 Days Active Valsartan-hydroCHL OROthiazide 320-25 MG Tablet Oral; Duration: 90 Days Active Immunizations Vaccine Route Administration Date Status Comme nts Influenza, high dose seasonal Unknown 10/30/2023 Admini stered Social History Social History Additional Details Category Social Info Options Details Migrated Social History Migrated Social History Alcohol intake : , History of tobacco use : , Smoking Status : Never smoked Vital Signs Height-cm 185.42 cm 09/08/2025 Weight-kg 102.06 kg 05/05/2025 Height 73.00 in 09/08/2025 Weight 225 lbs 05/05/2025 BMI 29.68 kg/m2 05/05/2025 Encounters Encounter Location Date Provider Diagnosis [facility] Halima MEJIAS [address] [place] [id number] 07/07/2025 DANNY MARIE 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 ; Pain in right foot M79.671 ; 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, bilateral legs I70.213 and Onychomycosis B35.1 [facility] Halima MEJIAS [address] [place] [address] [id number] 09/08/2025 DANNYTIM SALAZAR 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 ; Pain in right foot M79.671 ; 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, bilateral legs I70.213 and Onychomycosis B35.1 [facility] Halima MEJIAS [address] [place] [address] [id number] 02/10/2025 DANNY SALAZAR 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 ; Pain in right foot M79.671 ; 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, bilateral legs I70.213 and Onychomycosis B35.1 [facility] Halima MEJIAS [address] [place] [address] [id number] 02/24/2025 DANNYTIM SALAZAR 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 ; Pain in right foot M79.671 ; 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, bilateral legs I70.213 and Onychomycosis B35.1 [facility] Halima MEJIAS [address] [place] [address] [id number] 05/05/2025 DANNY SALAZAR 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 07/07/2025 Onychomycosis (ICD-10 - B35.1) All corns [...] [address], [place], [place], [id number], Insurance Providers Payer Name Payer Address Payer Phone Subscriber Number Group Number Insured Name Patient Relationship to Insured Coverage Start Date Coverage End Date [employer] [address] [place] [phone] [id number] MESFIN CASTAÑEDA Self - patient is the insured Medical (General) History Medical History History ICD Code Diabetic
--- OUTSIDE RECORDS SUMMARY | 2025-10-06 19:29 | XMS_ITS | Data Portability ---
Author Organization [place] [facility], Main Office Address [address] [place] [address] Assessment No assessment recorded. Plan of Treatment Reminders Order Date Submit Date Provider Last Modified By Organization Details Last Modified Time Details Appointments None recorded . Lab HbA1c (hemoglo bin A1c), blood 025 09/27/20 25 [email or web address] [facility], [address] [place] [address], [address], 5 18:26:26 microalb umin, urine 025 09/27/20 25 [facility], [address] [place] [address], [address], 5 18:26:26 lipid panel, serum 025 09/27/20 25 [email or web address] [facility], [address] [place] [address], [address], 5 18:26:26 CBC w/ auto diff 025 09/27/20 25 [email or web address] [facility], [address] [place] [address], [address], 5 18:26:27 CBC w/ auto diff 025 05/24/20 25 [email or web address] [facility] ([facility]), [address] [place], [address], 5 10:19:08 T4, free, serum 025 05/24/20 25 [facility] ([facility]), [address] [place], [address], 5 10:19:08 TSH, serum or plasma 025 05/24/20 25 [email or web address] [facility] ([facility]), [address] [place], [address], 5 10:19:08 lipid panel, serum 025 05/24/20 25 [email or web address] [facility] ([facility]), [address] [place], [address], 5 10:19:07 CMP, serum or plasma 025 05/24/20 25 [email or web address] [facility] ([facility]), [address] [place], [address], 5 10:19:08 lipid panel, serum 09/09/20 [email or web address] Not available 4 16:56:55 CMP, serum or plasma 09/09/20 [email or web address] Not available 4 16:56:55 HbA1c (hemoglo bin A1c), blood 09/09/20 [email or web address] Not available 4 16:56:55 TSH, serum or plasma 09/09/20 [email or web address] Not available 4 16:56:55 T4, free, serum 09/09/20 [email or web address] Not available 4 16:56:55 CBC w/ auto diff 09/09/20 [email or web address] Not available 4 16:56:54 Referral None recorded . Procedures None recorded . Surgeries None recorded . Imaging None recorded . Medication Orders None recorded . Patient TargetsNo targets recorded. Patient Instructions Encounter Date Encounter Id Patient Instructions Last Modified By Organization Details Last Modified Time 09/09/2024 [id number] dementia rating scale-2* [email or web address] Not available 09/09/2024 12:50:44 alcohol misuse* [email or web address] Not available 09/09/2024 12:50:44 depression screening* [email or web address] Not available 09/09/2024 12:50:44 Timed Up and Go test (TUG)* [email or web address] Not available 09/09/2024 12:50:44 multi-dimensiona l health assessment questionnaire* [email or web address] Not available 09/09/2024 12:50:44 Personalized a lt [...] Negative Active diagnosis, Continue current treatment plan [email or web address] Not available 09/09/2024 12:28:01 Medicare wellnes s [...] recognize, using context, where substitutions have occurred. [email or web address] Not available 09/09/2024 12:51:23 01/11/2025 [id number] Coronary artery disease, paroxysmal atrial fibrillation, hypertension [...] Created: Odin Alex M.D. 01.11.2025 11:39 AM [email or web address] Not available 01/11/2025 12:39:30 02/10/2025 [id number] In primarily because of a fall several days ago. Apparently tripped over some equipment at [employer]. End up hitting the back side of his head as well as the right shoulder and arm. Has considerable amount of ecchymotic changes over these areas. Did go to the emergency room had CT head scans as well as CT cervical scans performed which were all negative. Clinically is doing better. Is scheduled to see pulmonology next week. Keep Appointment: Fri 11:00 AM Andreina Portions of record are template driven. When necessary additional context will be provided. Additionally some portions have been created with voice recognition software. Occasional wrong-word or s ound-a-like substitutions may have occurred due to the inherent limitations of voice recognition software. Read the chart carefully and recognize, using context, where substitutions may have occurred. Created: Odin Alex M.D. 02.10.2025 01:43 PM [email or web address] Not available 02/10/2025 14:43:10 05/24/2025 [id number] Follow-up for coronary artery disease, essential hypertension, [...] Created: Odin Alex M.D. 05.24.2025 11:42 AM Not available 05/24/2025 12:42:06 09/27/2025 [id number] [facility] risk assessment stable. Follow-up for coronary artery disease, hypertension, paroxysmal atrial fibrillation, hyperlipidemia, type 2 diabetes and chronic obstructive lung disease all clinically stable. Is scheduled for some time up of minimal invasive surgery in the lumbar back. Currently he is doing well otherwise. Instructed patient he may need to contact his surgeon to see when they want to discontinue his Plavix as well as his Eliquis. Otherwise clinically stable. Will check a CMP, lipid and hemoglobin A1c. Follow-up in four months Advised on FDA Recommended Immunizations including but not limited to Influenza, COVID,Tetanus,TDAP, Pneumococcal,RSV and Shingles Additional Orders - Directives - Recommendations Recommended Testing 1. Colonoscopy Immunizations and Vaccines 1. PCV20 or PCV21 Recommended 2. Shingrix Recommended 3. Tetanus or TD Recommended Recommended Vaccine and Immunizations Discussed With Patient! Follow Up: 4 Months Approximate Date: 01/25/2026 Portions of record are template driven. When necessary additional context will be provided. Additionally some portions have been created with voice recognition software. Occasional wrong-word or s ound-a-like substitutions may have occurred due to the inherent limitations of voice recognition software. Read the chart carefully and recognize, using context, where substitutions may have occurred. Created: Odin Alex M.D. 09.27.2025 11:49 AM [email or web address] [id number] Not available 09/27/2025 12:49:35 Reason for Referral None Reported. Results Created Date Observation Date Name Description Value Unit Range Abnormal Flag Note LastModifiedBy Organization Detail LastModifiedTime 11/30/20 24 11/30/2024 US, abdom en No observ ation record ed. [address] [facility] [address], [place], [address], 11/30/2024 16:41:01 02/07/20 25 02/06/2025 CT, cervi bernard spine , w/o contr ast No observ ation record ed. [address], [address], 02/07/2025 06:44:55 02/07/20 25 02/06/2025 CT, brain , w/o contr ast No observ ation record ed. [address] [address], [place], [address], 02/07/2025 06:45:41 02/07/20 25 02/06/2025 CT, chest + abdom en + pelvi s, w/o contr ast No observ ation record ed. [address], [place], [address], 02/07/2025 06:46:13 02/07/20 25 02/06/2025 XR, elbow , 2 view No observ ation record ed. [address], [place], [address], 02/07/2025 06:50:44 06/20/20 25 06/20/2025 katy lynne ow study No observ ation record ed. [address], [place], [address], 06/20/2025 17:40:22 07/28/20 25 07/28/2025 US, renal No observ ation record ed. [address], [place], [address], 07/28/2025 18:16:17 08/31/20 25 07/28/2025 US, renal No observ ation record ed. [address] [facility] [address], [place], [address], 08/31/2025 14:23:04 Result Notes None recorded. Problems Name Problem SNOMED Code Status Onset Date Resolution Date Notes Provider Name and Address Organization Details Recorded Time Rectal hemorrhag e 05596844 Active Not Available [facility] 3 09:17:33 Hyperchol esterolem ia 23631434 Active Not Available [facility] 3 09:17:33 Gastroeso phageal reflux disease 482990804 Active Not Available [facility] 3 09:17:34 Left inguinal hernia 948511795 Active Not Available [facility] 3 09:17:34 Hypoglyce joesph 532370926 Active Not Available [facility] 3 09:17:34 Prostate specific antigen above reference range 511937741 Active Not Available [facility] 3 09:17:34 Osteoarth ritis 128288336 Active Not Available [facility] 3 09:17:34 Atrial fibrillat ion 47724641 Active Not Available [facility] 3 09:17:35 Acute bronchiti s 20118189 Active 2018 Not Available [facility] 3 09:17:33 Anxiety 53968569 Active 2019 Not Available [facility] 3 09:17:35 Chronic obstructi ve pulmonary disease 37528793 Active 2020 Not Available [facility] 3 09:17:33 Hyperlipi demia 35817518 Completed 202011/27/2021 Not Available [facility] 3 09:17:35 Obstructi ve sleep apnea syndrome 99652960 Active 2020 Not Available [facility] 3 09:17:35 Spinal stenosis of lumbar region 61438491 Active 2020 Not Available [facility] 3 09:17:34 Disorder of prostate 34019008 Active 2021 Not Available [facility] 3 09:17:34 Effects of high altitude 13978045 Active 2021 Not Available [facility] 3 09:17:36 COVID-19 995644229 Active 2021 Not Available [facility] 3 09:17:35 Obesity 190279695 Active 2021 Not Available [facility] 3 09:17:35 Chronic renal failure 13209616 Active 2022 DEBBIE Rolle, [place] [facility] 3 11:31:19 Leukocyto sis 762916130 Active 2022 Aracelis Martinez CMA null, [place] [facility] 3 11:33:34 Diarrhea 34737021 Active 2022 Odin Alex MD [address], [place], [address] , [facility] 3 16:29:58 Serum creatinin e above reference range 320065021 Active 2022 Odin Alex MD [address], [address], [place], [address] , [facility] 3 10:51:32 Low back pain 630581980 Active 2022 Aracelis Martinez CMA null, [place] [facility] 3 15:20:53 Celluliti s of toe of right foot 71327310987 901218 Active 2022 Odin Alex MD [address], [address], [place], [address] , [place] [facility] [place] [facility] 3 14:48:55 Chronic low back pain 452786506 Active 2022 Mitzi Torresson null, [place] [facility] 3 15:33:51 Hyperglyc emia 97552965 Active 2023 Aracelis Martinez CMA null, [place] [facility] 5 10:54:22 Headache 51699115 Active 2023 Odin Alex MD [address], [address], [place], [address] , [place] [facility] 4 14:19:35 Liver enzymes level above reference range 395667455 Active 2023 Aracelis Matrinez CMA null, [place] [facility] 4 11:44:45 Depressiv e disorder 23423013 Active 2023 Odin Alex MD [address], [address], [place], [address] , [place] [facility] 4 12:14:38 Abnormal liver function 73127434 Active 2023 Mitiz Jerel null, [place] [facility] 4 11:58:35 Hearing loss 05532702 Active 2023 Mitzi Beltrán null, [place] [facility] 4 12:56:05 Chronic cough 11751017 Active 2024 Aracelis Martinez CMA null, [place] [facility] 5 14:19:12 Coronary arteriosc lerosis 78734345 Active 2024 Odin Alex MD [address], [address], [place], [address] , [place] [facility] 5 12:33:22 Dyspnea 971393307 Active 2024 Aracelis Martienz CMA null, [place] [facility] 5 12:02:46 Essential hypertens ion 83267109 Active 2024 Odin Alex MD [address], [address], [place], [address] , [facility] 5 14:34:33 Severe chronic obstructi ve pulmonary disease 646634399 Active 2024 Katty Mcclain null, [facility] 5 14:28:59 Morbid obesity 810314299 Active 2024 Katty Mcclain null, [facility] 5 16:53:03 Type 2 diabetes mellitus controlle d by diet 56845520897 9101 Active 2024 Odin Alex MD [address], [place], [address] , [facility] 5 09:15:04 Chronic kidney disease 896391023 Active 2024 Aracelis Martinez CMA null, [facility] 5 16:50:31 Diabetes mellitus 82203503 Active 2024 Kattyjyoti Mcclain null, [facility] 5 10:12:05 Type 2 diabetes mellitus 94443386 Active 2024 Aracelis Martinez CMA null, [facility] 5 11:13:30 Newly diagnosed diabetes 933615334 Active 2024 Aracelis Martinez CMA null, [facility] 5 11:32:02 Problem Notes None recorded. Procedures Surgical History Date Name Laterality Status Provider Name and Address Organization Details Recorded Time 4 Medicare Wellness CPT Code, subsequent completed Caryn Macias RN [facility] [employer] [facility] 09/09/2024 12:20:33 3 Medicare Wellness CPT Code, subsequent completed Caryn Macias RN [facility] [employer] [facility] 08/26/2023 14:50:18 3 Advanced Care Planning completed OLYA Bill [facility] [employer] [facility] 08/26/2023 14:52:44 Imaging Results None recorded. [...] Not Available Not Available Not Avai lable fluconazo le 100 mg tablet TAKE 1 TABLET BY MOUTH ONCE DAILY FOR 10 DAYS active Not Available Not Available No t Available metformin 500 mg tablet TAKE 1 TABLET BY MOUTH TWICE DAILY active Not Available Not Available No t Available prednison e 10 mg tablet TAKE 4 TABLETS A DAY FOR 3 DAYS IN THE MORNING WITH FOOD , DECREASE BY 1 TAB EVERY 3 DAYS UNTIL COMPLETE 09/27 completed Not Available Not Available Not Available Norvasc 10 mg tablet Take 1 [...] BY MOUTH ONCE DAILY AT 8 AM 09/27 completed Not Available Not Available Not Available dexametha sone 6 mg tablet TAKE [...] Not Available Not Available No t Available roflumila st 500 mcg tablet TAKE 1 TABLET BY MOUTH ONCE DAILY FOR 30 DAYS STARTING WHEN 250MCG HAS BEEN COMPLETE D active Not Available Not Available No t [...] Not Available Not Available No t Available roflumila st 250 mcg tablet TAKE 1 TABLET BY MOUTH ONCE DAILY FOR 4 WEEKS 09/27 completed Not Available Not Available Not Available OneTouch Delica Plus Lancet 33 gauge USE 1 LANCET TO CHECK GLUCOSE ONCE DAILY active Not Available Not Available No t Available Breztri Aerospher e 160 mcg-9mcg- 4.8mcg/ac tuation HFA aerosol inhaler INHALE 2 PUFFS TWICE DAILY active Not Available Not Available No t Available Ozempic 1 mg/dose (4 mg/3 mL) subcutane ous pen injector INJECT 1MG SUBCUTAN EOUSLY ONCE A WEEK active Not Available Not Available No t Available Wegovy 0.25 mg/0.5 mL subcutane ous pen [...] mL) subcutane ous pen injector INJECT 0.5MG UNDER THE SKIN EVERY 7 DAYS 09/27 completed Not Available Not Available Not Available Vitals Date Recorded Body height Body mass index (BMI) Body weight Heart rate Body temperature Oxygen saturation Oxygen saturation in Arterial blood by Pulse oximetry Systolic And Diastolic Provider Name and Address Organization Details Last Updated DateTime 5 177.8 cm 36.2 kg/m2 047724. 28 g 54 /min 97 [degF] 84 % 84 % 138/84 mm[Hg] Katty [facility] [employer] 5 12:18:02 Date Recorded Heart rate Oxygen saturation Oxygen saturation in Arterial blood by Pulse oximetry Body temperature Systolic And Diastolic Provider Name and Address Organization Details Last Updated DateTime 5 65 /min 95 % 95 % 97 [degF] 118/68 mm[Hg] Katty [employer] [place] [employer] 5 14:23:29 Date Recorded Body height Body mass index (BMI) Body weight Heart rate Body temperature Oxygen saturation Oxygen saturation in Arterial blood by Pulse oximetry Systolic And Diastolic Provider Name and Address Organization Details Last Updated DateTime 5 177.8 cm 36.9 kg/m2 311179. 24 g 68 /min 97 [degF] 95 % 95 % 122/74 mm[Hg] Katty [facility] [employer] [facility] 5 12:12:20 Date Recorded Pain severity - 0-10 verbal numeric rating [Score] - Reported Provider Name and Address Organization Details Last Updated DateTime 09/09/2024 0 Caryn Macias RN [facility] 09/09/2024 12:20:54 Date Recorded Body height Body mass index (BMI) Body weight Heart rate Body temperature Oxygen saturation Oxygen saturation in Arterial blood by Pulse oximetry Systolic And Diastolic Provider Name and Address Organization Details Last Updated DateTime 4 177.8 cm 35.9 kg/m2 284032. 09 g 67 /min 97 [degF] 96 % 96 % 120/86 mm[Hg] [facility]er[facility]ER[facility] [place] [facility] [place] [facility] 4 12:14:36 Date Recorded Body height Body mass index (BMI) Body weight Heart rate Body temperature Oxygen saturation Oxygen saturation in Arterial blood by Pulse oximetry Systolic And Diastolic Provider Name and Address Organization Details Last Updated DateTime 5 177.8 cm 34.4 kg/m2 083091. 17 g 63 /min 97.2 [degF] 95 % 95 % 128/62 mm[Hg] Katty Mcclain [place] [facility] 5 12:28:17 Social History Question Answer Notes LastModified by Organization Details LastModified Time Tobacco Smoking Status Former Smoker Not Available [facility] 01/29/2023 09:12:54 Do You Have An Advance Directive? No Info Given Previously [email or web address] Information not available 09/09/2024 Are You Blind Or Do You Have Difficulty Seeing? No MIGRATION.030 [id number] Information not available 01/29/2023 In The 14 Days Before Symptom Onset, Have You Had Close Contact With A Laboratory-conf irmed COVID-19 While That Case Was Ill? No MIGRATION.030 [id number] Information not available 01/29/2023 In The 14 Days Before Symptom Onset, Have You Had Close Contact With A Person Who Is Under Investigation For COVID-19 While That Person Was Ill? No MIGRATION.030 [id number] Information not available 01/29/2023 Are You Deaf Or Do You Have Serious Difficulty Hearing? Yes [email or web address] Information not available 08/26/2023 What Type Of Diet Are You Following? REGULAR MIGRATION.030 [id number] Information not available 01/29/2023 Have There Been Any Changes To Your Family Or Social Situation? No [email or web address] Information not available 08/26/2023 What Is The Fluoride Status Of Your Home? Fluoridated MIGRATION.030 [id number] Information not available 01/29/2023 When Did You Quit Smoking? 16+yearssincelast cigarette MIGRATION.030 [id number] Information not available 01/29/2023 Are There Any Guns Present In Your Home? Yes MIGRATION.030 [id number] Information not available 01/29/2023 Do You Use Insect Repellent Routinely? No [email or web address] Information not available 08/26/2023 Where Do You Live? [facility] [email or web address] Information not available 08/26/2023 Guns Present In The Home? Yes [email or web address] Information not available 08/26/2023 Are You Able To Care For Yourself? Yes [email or web address] Information not available 08/26/2023 Are You Blind Or Do Yo Have Difficulty Seeing? No [email or web address] Information not available 08/26/2023 Are You Deaf Or Do You Have Serious Difficulty Hearing? Yes Has Hearing Aids [email or web address] Information not available 08/26/2023 Live Alone Of With Others? With Others [email or web address] Information not available 08/26/2023 Do You Have A Medical Power Of Ramp Manager? No [email or web address] Information not available 08/26/2023 What Was The Date Of Your Most Recent Tobacco Screening? 09/09/2024 [email or web address] Information not available 09/09/2024 Do You Have Any Pets? No [email or web address] Information not available 08/26/2023 What Is Your Relationship Status? [email or web address] Information not available 08/26/2023 Do You Use Your Seat Belt Or Car Seat Routinely? Yes MIGRATION.0301 [id number] Information not available 01/29/2023 Do You Have Smoke And Carbon Monoxide Detectors In Your Home? Yes MIGRATION.0301 [id number] Information not available 01/29/2023 At What Age Did You Start Smoking Tobacco? 22 Quit In 2000 MIGRATION.0301 [id number] Information not available 01/29/2023 Are You Passively Exposed To Smoke? No [email or web address] Information not available 08/26/2023 Are There Any Smokers In Your House? No [email or web address] Information not available 08/26/2023 How Much Tobacco Do You Smoke? 1 PPD MIGRATION.0301 [id number] Information not available 01/29/2023 Do You Use Sunscreen Routinely? Yes MIGRATION.0301 [id number] Information not available 01/29/2023 Have You Recently Traveled Abroad? No MIGRATION.0301 [id number] Information not available 01/29/2023 Do You Have Difficulty Walking Or Climbing Stairs? Yes Uses A Cane [email or web address] Information not available 09/09/2024 Sex: Unknown Functional Status Question Answer Note LastModified by Organizat ion Details LastModified Time What is your level of alcohol consumption? None [email or web address] Information not available 09/09/2024 Do you or have you ever used smokeless tobacco? Never used smokeless tobacco MIGRATION.55361 [id number] Information not available 01/29/2023 Do you have transportation difficulties? No MIGRATION.83947 [id number] Information not available 01/29/2023 Are you able to walk independently without assistance or assistive devices? YESASSIST uses a cane Information not available 08/26/2023 Do you have difficulty doing errands alone? No MIGRATION.59280 89073 Information not available 01/29/2023 Are you able to care for yourself independently? Yes MIGRATION.54802 19696 Information not available 01/29/2023 Do you have difficulty dressing, bathing, grooming, or toileting? No MIGRATION.86809 74464 Information not available 01/29/2023 Do you or have you ever used e-cigarettes or vape? Never used electronic cigarettes MIGRATION.80092 75336 Information not available 01/29/2023 What is your exercise level? Occasional MIGRATION.86186 98632 Information not available 01/29/2023 Mental Status Question Answer Note LastModified by Organizat ion Details LastModified Time Do you have difficulty concentrating, remembering or making decisions? No MIGRATION.[id number] 6 Information not available 01/29/2023 Family History [...] HAVE YOU BEEN HOSPITALIZED OR SEEN IN [facility] IN THE PAST YEAR ? N [...] Recorded Time pneumococcal polysaccharide PPV23 1 completed [facility] 08/26/2023 14:38:26 COVID-19, mRNA, LNP-S, bivalent, PF, 30 mcg/0.3 mL dose 2 completed Not Available [facility] 09/27/2025 11:46:44 Pneumococcal conjugate PCV20, polysaccharide VXP186 conjugate, adjuvant, PF 3 completed Not Available [facility] 09/27/2025 11:46:44 Tdap 5 completed Not Available [facility] 09/27/2025 11:46:44 COVID-19, mRNA, LNP-S, PF, 10 mcg/0.2 mL 5 completed Not Available [facility] 09/27/2025 11:46:44 RSV, recombinant, protein subunit RSVpreF, adjuvant reconstituted, 0.5 mL, PF 5 completed Not Available [facility] 09/27/2025 11:46:44 Influenza, high-dose, trivalent, PF 5 completed Not Available [facility] 09/27/2025 11:46:44 zoster recombinant 5 completed Not Available [facility] 09/27/2025 11:46:44 Influenza, high-dose, quadrivalent, PF 3 completed Katty stephens [facility] 08/26/2023 16:00:55 Influenza, split virus, trivalent, preservative 4 completed Not Available [facility] 01/29/2023 09:21:35 Influenza, split virus, trivalent, preservative 3 completed Not Available [facility] 01/29/2023 09:21:35 influenza, unspecified formulation 2 completed Not Available [facility] 01/29/2023 09:21:35 COVID-19, mRNA, LNP-S, PF, 30 mcg/0.3 mL dose 2 completed Not Available [facility] 01/29/2023 09:21:35 Influenza, split virus, quadrivalent, preservative 1 completed Not Available [facility] 01/29/2023 09:21:35 COVID-19, mRNA, LNP-S, PF, 30 mcg/0.3 mL dose 1 completed Not Available [facility] 01/29/2023 09:21:36 SARS-COV-2 (COVID-19) vaccine, UNSPECIFIED 1 completed Not Available [facility] 01/29/2023 09:21:36 SARS-COV-2 (COVID-19) vaccine, UNSPECIFIED 1 completed Not Available [facility] 01/29/2023 09:21:36 Influenza, high-dose, quadrivalent, PF 0 completed Not Available [facility] 01/29/2023 09:21:36 Influenza, high-dose, trivalent, PF 0 completed Not Available [facility] 01/29/2023 09:21:36 Influenza, high-dose, trivalent, PF 8 completed Not Available [facility] 01/29/2023 09:21:37 Influenza, high-dose, trivalent, PF 7 completed Not Available [facility] 01/29/2023 09:21:37 Influenza, split virus, quadrivalent, PF 6 completed Not Available [facility] 01/29/2023 09:21:37 Influenza, split virus, quadrivalent, preservative 5 completed Not Available [facility] 01/29/2023 09:21:37 Pneumococcal conjugate PCV 13 5 completed Not Available [facility] 01/29/2023 09:21:37 Influenza, high-dose, trivalent, PF 4 completed Odin Alex MD [address] [facility], [facility] [address], [place], [address], [facility] [employer] 09/09/2024 12:50:45 Past Encounters Encounter ID Performer Location Encounter Start Date Encounter Closed Date Diagnosis/Indication Diagnosis SNOMED-CT Code Diagnosis ICD10 Code Diagnosis IMO Codes Diagnosis Note [id number] Odin Alex MD [facility] [place] [address] [place] [address] y , [place] [address] 05/15/2021 00:00:00 05/15/2021 13:03:34 [id number] Odin Alex MD [facility] Internal Med [facility] [address], [facility] 24 [place] [address] 08/01/2021 00:00:00 08/01/2021 12:38:03 [id number] [facility] [place] [address] [place] [address] [place] [address] 11/27/2021 00:00:00 11/27/2021 15:08:49 [id number] [facility] [place] [address] [place] [address] y , [place] [address] 03/26/2022 00:00:00 03/26/2022 15:38:[id number] [facility] [place] [address] [place] [address] y , [place] [address] 05/31/2022 00:00:00 05/31/2022 11:59:19 [id number] Odin Alex MD [facility] Internal Med [place] [address] [place] [address] [place] [address] 07/26/2022 00:00:00 07/26/2022 12:34:00 [id number] Odin Alex MD [facility] Internal Med [place] [address] [place] [address] y , [place] [address] 12/13/2022 00:00:00 12/13/2022 15:11:30 [id number] Odin Alex MD [facility] Internal Med [place] [address] [place] [address] y , [place] [address] 03/28/2023 14:54:06 03/28/2023 15:35:24 Benign essential hypertension 7216292 I10 Hypercholesterolemia 136 18604 E78.00 Obstructiv e sleep apnea syndrome 08168809 G47.33 Gastroesop hageal reflux disease 277778487 K21.9 Obese class II 395521804 1 49952 E66.9 Atrial fibrillation 4943 6004 I48.91 Disorder of prostate 302 42651 N42.9 [id number] Odin Alex MD [facility] Internal Med [place] [address] [place] [address] y , [place] [address] 08/26/2023 14:15:37 08/26/2023 15:31:19 Adult health examination 561009708 Z00.00 Screening for disorder 945434973 Z13.9 Benign ess ential hypertension 9333685 I10 Atrial fibrillation 4943 6004 I48.91 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 30510700 M48.062 Administra tion of influenza vaccine 88045690 Z23 [id number] Odin Alex MD [facility] Internal Med [place] [address] [place] [address] y , [place] [address] 09/23/2023 14:20:04 09/23/2023 15:01:03 Leukocytosis 668872393 D72.014 [id number] Odin Alex MD [facility] Internal Med [facility] [address] [address] 10/16/2023 14:26:42 10/16/2023 14:57:58 Cellulitis of toe of right foot 9985782517 0879434 L03.032 [id number] Odin Alex MD [facility] Internal Med [facility] [address] [address] 12/30/2023 14:41:53 12/30/2023 15:30:52 Benign essential hypertension 7846724 I10 Atrial fibrillation 4943 6004 I48.91 Hypercholesterolemia 136 18207 E78.00 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 66175834 M48.837 [id number] Odin Alex MD [facility] Internal Med [facility] [address] [address] 01/19/2024 10:14:13 01/19/2024 10:52:34 Headache 92505796 G44.758 [id number] Odin Alex MD [facility] Internal Med [place] [address] [place] [address] [place] [address] 04/27/2024 14:44:48 04/27/2024 15:35:58 Benign essential hypertension 1859494 I10 Atrial fibrillation 4943 6004 I48.91 Anxiety 76394503 F41.9 Chronic ob structive pulmonary disease 42061648 J44.9 Gastroesop hageal reflux disease 488763651 K21.9 Hypercholesterolemia 136 20298 E78.00 Obese class II 391401212 1 20975 E66.9 Disorder of prostate 302 20735 N42.[id number] [facility] Med [place] [address] [place] [address] [place] [address] 09/09/2024 12:06:53 09/09/2024 14:13:29 Adult health examination 168904738 Z00.00 Screening for disorder 189668352 Z13.9 Administra tion of influenza vaccine 57737363 Z23 Benign ess ential hypertension 3536611 I10 Atrial fibrillation 4943 6004 I48.91 Chronic ob structive pulmonary disease 37117171 J44.9 Hypercholesterolemia 136 66411 E78.00 Obese class II 347923841 1 63865 E66.9 Hyperglycemia 00859763 R 73.9 [id number] Odin Alex MD [facility] [address] [facility] [address] [place] [address] 01/11/2025 11:54:22 01/11/2025 12:52:58 Coronary arteriosclerosis 77836745 I25.10 Atrial fibrillation 4943 6004 I48.91 Benign ess ential hypertension 8811556 I10 Chronic ob structive pulmonary disease 88296546 J44.[id number] [facility] [address] [facility] [address] [place] [address] 02/10/2025 14:15:48 02/10/2025 14:46:13 Coronary arteriosclerosis 91933364 I25.10 Hypercholesterolemia 136 90770 E78.00 Chronic ob structive pulmonary disease 94649719 J44.9 Atrial fibrillation 4943 6004 I48.91 Essential hypertension 66574915 I10 [id number] Odin Aelx MD [facility] Internal Med [place] [address] [address] 05/24/2025 11:59:46 05/24/2025 12:50:34 Chronic obstructive pulmonary disease 56411552 J44.9 Atrial fibrillation 4943 6004 I48.91 Coronary arteriosclerosis 13411418 I25.10 Essential hypertension 03459234 I10 Hypercholesterolemia 136 06138 E78.00 Obese class II 135892690 1 41220 E66.9 [id number] Odin Alex MD [facility] Internal Med [place] [address] [address] 09/27/2025 11:45:45 09/27/2025 12:52:51 General examination of patient 638640706 Z00.00 [id number] Coronary arteriosclerosis 15270903 I25.10 Essential hypertension 93164660 I10 Atrial fibrillation 4943 6004 I48.91 Hypercholesterolemia 136 11901 E78.00 Type 2 raiza betes mellitus controlled by diet 5618410563 89763 E11.9 9695736 Chronic ob structive pulmonary disease 83712391 J44.9 Chronic low back pain 27 3367986 M54.50 Obesity 537772790 E66.9 Health Concerns Section Related Observation LastModified by Organization Detai ls LastModified Time None Recorded Concern Status LastModified by Organization Details LastModified Time None Recorded Advance Directives Directive N: Info given previously Payers Insurance Date Sequence Insurance Name Policy Number Policy Richards Covered Member ID Richards Member ID Guarantor Name 09/26/2025 1 [employer] (MEDICARE REPLACEMENT/ ADVANTAGE - PPO) [id number] Billy Russ [id number] Billy Russ Notes Date Note Type Note Provider Name and Address Organization Details Recorded Time text/html Patient Name: Billy RogersfarihatopherDate Of Service: August ( 09.09.2024 ): 1945 [...] Systemic Symptoms:none Medication Reconciliation: from medication list. [id number]: Echocardiogram demonstrated an ejection fraction of approximately [...] Succinate Er. Rate control: controlled ventricular response [id number] Criteria: Age > 75 for embolic phenomenon. [...] offered to be evaluated and instructed by [employer] hear[employer] stockyard supervisor on weight loss diet. Active Medication ListMethotrexate [...] PREVNAR 13 GC PREVNAR 20 Needed(X) 2021-08 COVScripped Surgical Xiwlqll0343-12 Distal Phalanx Amputation Rt. 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 [id number]: Echocardiogram demonstrated an ejection fraction of approximately [...] offered to be evaluated and instructed by [employer] stockyard supervisor on weight loss diet. Active Medication ListMethotrexate [...] PrnAlbuterol Sulfate Hfa 90 UG AEROSOL, METERED K7tMsfryourh 25 MG-320 MG (TABLET - ORAL) DailyMetoprolol Succinate Er 100 MG One Tablet At DinerPlavix 75 MG TABLET, FILM COATED Once Daily Vaccination and Immunization( ) 2024-08 INFLUENZA( ) 2011-08 PNEUMOVAX(X) 2015-01 PREVNAR 13 GC PREVNAR 20 Needed(X) 2021-08 COVScripped Surgical Tgmjlkr5603-93 LAD Esdjx6292-47 Distal Phalanx Amputation Rt. 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 [employer] 01/11/2025 12:39:46 5 text/html Patient Name: Billy Holland Of Service: January ( 02.10.2025 ): [...] and myalgia Medication Reconciliation: from medication list. [id number]: Echocardiogram demonstrated an ejection fraction of approximately [...] Succinate Er. Rate control: controlled ventricular response [id number] Criteria: Age 65-74 for embolic phenomenon. Anticoagulation: [...] PrnAlbuterol Sulfate Hfa 90 UG AEROSOL, METERED M7qKkvxtbsnq 25 MG-320 MG (TABLET - ORAL) DailyMetoprolol Succinate Er 100 MG One Tablet At DinerPlavix 75 MG TABLET, FILM COATED Once Daily Vaccination and Immunization( ) 2023- INFLUENZA( ) 2011-08 PNEUMOVAX(X) 2015-01 PREVNAR 13 GC PREVNAR 20 Needed(X) 2021-08 COVID [employer] Surgical Gougdgh5613-62 LAD Wzqzj3738-89 Distal Phalanx Amputation Rt. 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 [employer] 02/10/2025 14:43:30 5 text/html Patient Name: Billy Holland Of Service: Friday ( 05.24.2025 ): [...] Systemic Symptoms:none Medication Reconciliation: from medication list. [id number]: Echocardiogram demonstrated an ejection fraction of approximately [...] Succinate Er. Rate control: controlled ventricular response [id number] Criteria: Age > 75 for embolic phenomenon. [...] offered to be evaluated and instructed by [employer] hear[employer] stockyard supervisor on weight loss diet. Active Medication ListMethotrexate [...] PrnAlbuterol Sulfate Hfa 90 UG AEROSOL, METERED G5rWoqcdccpb 25 MG-320 MG (TABLET - ORAL) DailyMetoprolol Succinate Er 25 MG TABLET, FILM COATED, EXTENDED RELEASE One Tablet At DinerPlavix 75 MG TABLET, FILM COATED Once Daily Adverse Drug Reactions ReviewedNo Known Adverse Drug Reactions! Vaccination and Immunization ( ) 2024-08 INFLUENZA( ) 2011-08 PNEUMOVAX(X) 2015-01 PREVNAR 13 GC PREVNAR 20 Needed(X) 2021-08 COVID PFIZERImmunizations and Vaccinations Discussed and Implemented if feasible In the Office. Else referred to pharmacies. Surgical History 2024-10 LAD Alpac7146-93 Distal Phalanx Amputation Rt. 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 This represents approximately a 6.6% change in weight. Weight change attributable to lifestyle changes. Vital Signs:Blood Pressure: Sitting Rt. Arm 128/62Pulse: Sitting 63 /min and RegularRespiratory Rate: 16Height 70 in or 1.8 mWeight 240 lb or 108.9 kgBMI 34.4DCCT HAIC: 6.5 Calculated MB mg% Chief Complaint: Addressed in HPI Problems or conditions discussed in the HPI were the only ones reviewed during the encounter.Only social and family history addressed in the HPI were reviewed during this encounter. A significant, separate E/M service was performed to evaluate the current and new problems. Attendants(s) + NoneConstitutional and Systemic Symptoms:none Medication Reconciliation: from medication list. Dwzwuousshh12-74-2013: Ultrasound the abdominal aorta demonstrates no evidence [...] a result of a fall on anticoagulants. 06-20-2025: Modified barium swallow shows significant penetration and active aspiration for which modified barium swallow as recommended. 07-28-2025: Renal ultrasound shows a 5.9 cm cyst of the right kidney. History of Present Illness Reviewed the findings of the preventative health visit. Addressed all areas with the patient, patient's family or caregivers. Preventative examinations and testing immunizations - vaccinations, colonic neoplasm screening and PSA all reviewed and ordered where patient was amenable to the recommendations. Cognitive function see HPI but demonstrated no overall change in cognitive status . Depression addressed and where necessary medications were adjusted or instituted. End of life and living will briefly discussed with patient and where these can be filled out and legally executed. Other blood and imaging studies were ordered if considered necessary. Other recommendations may be found in the encounter note. #1. Coronary Artery Disease: There has been no change in frequency - duration - intensity in frequency, duration or intensity of chest pain. Other Complaints: none The frequency of anginal attacks is none at all. Additional Symptoms: none Therapy reviewed regarding cardiovascular management includes Eliquis, Plavix and Pravachol #2. Essential Hypertension: Stage: Stage I Interval Neurological Complaints no headaches, dizziness, weakness, visual changes, ataxia, aphasia and apraxia. No shortness of breath, orthopnea or cardiovascular symptoms. No other symptoms related to end organ damage. Pressure has been under excellent control. Currently elevated. No other end organ symptoms or findings. Therapy reviewed regarding management of hypertension and includes salt restriction, weight loss and Metoprolol Succinate Er and Valsartan. #3. Type II Hypercholesterolaemia: Currently taking medication and tolerating well. No interval complaints of any muscle pain or arthralgia. No significant liver changes with medications. Last lipid panel: fair control. Therapy reviewed regarding treatment of cholesterol management and include diet and Pravachol. #4. Atrial Fibrillation: Type: Paroxysmal with recurrent episodes lasting less than 7 days. Further classification: Non-valvular. Associated history of HTN and diabetes. No attending hx of any shortness of breath, palpitations, syncopal or neurological symptoms. Current medications: Metoprolol Succinate Er. Rate control: controlled ventricular response [id number] Criteria: hypertension, Age > 75 and Diabetes for embolic phenomenon. Anticoagulation: Eliquis #5. Type II Diabetes: Has had no polyuria polyphagia or polydipsia. Has had no hypoglycemic like responses. No new history of any numbness, tingling, weakness or visual problems. No nausea, anorexia or other constitutional symptoms. There has been no foot problems or non healing lesions. The last HAIC was DCCT HAIC: 6.5 Calculated MB mg%. CGM: No. Average blood sugars 100-115 mg%. Checking sugars : several times a week. Medication Types Include: none Secondary complications include ASHD. Macro-vascular complications include Metformin and Ozempic. Therapy reviewed regarding diabetic management and include excellent Compliance: ARBs Renal Protection: has seen eye doctor within the last year Lipid management: Normal Urinary microalbumin: Emphysema . Ophthalmological: no interval change. Control: Mild #6. COPD: Hx of only strenuous activity currently stable. There has been not currently smoking in exercise tolerance an shortness of breath. No change in sputum production, color or consistency. No fever, chills, weight loss or other constitutional symptoms. Gold Scale: Albuterol Sulfate Hfa, Singulair and Spiriva. MRC Scale: No. Smoking: does not use supplemental oxygen Current medications: lumbar Using nebulizer Treatments: no significant change since last examination. Uses none #7. Chronic pain management for chronic constant, exacerbated by activity and interferes with enjoyment and ability to perform activities of daily living Since last examination Yes Interval TestinHas tried NSAIDS 0. Pain Description: 0. Currently seeing or has seen in the past a Molecular Biologist: 0 .Pain - Enjoyment of Life - General Activity ScalePain on Average: NAEnjoyment of Live: NAGeneral Activity: noEnjoyment of Life - General Activity Scale: no cognitive impairmentCurrently regimen consists of kept medications the same as prescribed with no evidence of abuse or self prescribing. Current Average Morphine Milligram Approximate Equivalent: not indicated and this time mg approximated if taking full dosage daily. Recommend: yes and no discrepancies or multiple prescribers noted.Benzodiazepines or other hypnotics: Class 1 Obesity BMI 30-34.99.Alternative pain management modalities (acupuncture - behavior therapy- additional PT - SNRIs) have been discussed and have either been tried in the past or not acceptable alternatives to patient or not available in our location. Once again address the possibility that these medications may cause some cognitive impairment at times. Has noticed currently using GLP-1 Inhibitors with diet and doing well. Instructed to let us know if any of the conditions arise I will need to consider reducing or stopping certain medication.Will No.Urine Testing: No and was offered to be evaluated and instructed by [employer] stockyard supervisor on weight loss diet.Controlled substance database yes and no discrepancies or multiple prescribers noted. Pill counts when available have been acceptable. No other signs of any abuse.Patient reports condition is stable and is able to function with the medication. Denies any misuse or adverse effects.TREATMENT OBJECTIVE: Enhance ability to manage pain independently, improved function and sustain quality of life. Recommendations or alternative therapies and lifestyle changes are discussed on each visit. Has shown improvement inf functionality. Has been educated on the side effects,risks and any black box warnings. Has verbalized the dangers of some of the medications regarding driving and cooperating heavy machinery and have advised against this. #8. Hx of obesity. Currently Class 1 Obesity BMI 30-34.99. Has tried numerous dietary support and supplements with no benefit. Instructed on the health consequences of the obese status particularly cancer - diabetes and heart disease. Discussed other modalities of weight loss currently using GLP-1 Inhibitors with diet and doing well . Potential candidate for bariatric surgery: No. Wishes to be evaluated by Dietary: No and was offered to be evaluated and instructed by [employer] hear[employer] stockyard supervisor on weight loss diet. Wellness Evaluation PHQ-2 Score Last Two Weeks Last Two Weeks: 0: Not at all 1: Several Days 2: More than half 3: Almost Every day #1. Little interest or pleasure in doing things: Not At All :Score 0#2. Feeling down, depressed, or hopeless: Not At All :Score 0Minimal or no Depression 0Function Status Staging: No demonstrable functional decline Basic ADLS Ambulation: Uses WalkerUses CaneGrooming: General Personal Hygiene NormalToiletry: Self SufficientDressing: Dresses Without AssistanceEating: Self Sufficient Instrumental ADLS Managing Finances YesManaging Health YesShopping YesPreparing Meals YesUsing Technology YesHouse Work YesTaking Care of Pets YesTaking Care Children YesTransportation Yes Additional Topics Advanced Directives: DeclinedLiving Will: DeclinedCode Status: Full Code Additional Comments Topics listed or those only pertinent to the patient or care givers. Mini Mental Status Exam Orientation: Year + Season + Month + Date + Day + Score: 5Location: Country + County + City + Facility + Room + Score: 5Registration: House + Car + Airplane + Score: 3Attention: D + L + R + O + W + Score: 5Recall: House + Car + Airplane - Score: 2Language: Watch + Pencil + Score: 2Repetition: No ifs, ands, or buts + Score: 1Sentence: Write a Sentence + Sentence: I like coming to Dr. Alex's office.Score: 1Reading: Close Eyes + Score: 1Pentagons: Copy Design + Score: 1Command: Hand + Fold In Half + Put Down + Score: 3 Total Test Score: 29 /30 Normal Possible Functional ImpairmentActivities of Daily Living: Probably NormalCommunication: Probably NormalMemory: Probably Normal Social and Physical Activities Drinking History: NoneExercise 20 Minutes per Week: Yes, some of timeDifficulty Driving Car: NoOther Problems:NoneSmoking History: Does not smokeCannabis History: Does Not UseVaping History: Does Not Vape Active Medication ListMethotrexate 2.5 GM /100 ML ( 25 MG / ML) (INJECTABLE - INJECTION) 5 Tabs WeeklySpiriva 2.5MCG (SPRAY - INHALATION) One DailyXanax 0.25 TidRoflumilast 500 UG TABLET Once DailyOzempic 1.34 MG/ML INJECTION, SOLUTION WeeklyGabapentin 100 MG CAPSULE One Three Times A [...] PrnAlbuterol Sulfate Hfa 90 UG AEROSOL, METERED C8bKlpybzlax 25 MG-320 MG (TABLET - ORAL) DailyMetoprolol Succinate Er 25 MG TABLET, FILM COATED, EXTENDED RELEASE One Tablet At DinerMetformin 500 MG TABLET BidPlavix 75 MG TABLET, FILM COATED Once Daily Adverse Drug Reactions ReviewedNo Known Adverse Drug Reactions! Vaccination and Immunization( ) 2025-08 INFLUENZA( ) 2011-08 PNEUMOVAX( ) 2015-01 PCV13( ) 2025-08 COVID PFIZER( ) 2025-08 RSV PHARMACY(X) PCV20 or PCV21 Recommended(X) Shingrix Recommended(X) Tetanus or TD RecommendedImmunizations and Vaccinations Discussed and Implemented if feasible In the Office. Else referred to pharmacies. Surgical Wuzmqyy3322-70 LAD Fwdeh5539-20 Distal Phalanx Amputation Rt. 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 Family HistoryMother 69 from ITP and complications following the splenectomyFather 83 from Cancer of the LungTwo brothers both frin DM, ASHD, and Atrial Fibrillation and renal complicationsThree sisters all living each has DM and HTN Active Medication ListMethotrexate 2.5 GM /100 ML ( 25 MG / ML) (INJECTABLE - INJECTION) 5 Tabs WeeklySpiriva 2.5MCG (SPRAY - INHALATION) One DailyXanax 0.25 TidRoflumilast 500 UG TABLET Once DailyOzempic 1.34 MG/ML INJECTION, SOLUTION WeeklyGabapentin 100 MG CAPSULE One Three Times A [...] PrnAlbuterol Sulfate Hfa 90 UG AEROSOL, METERED B7hUvknfcqwm 25 MG-320 MG (TABLET - ORAL) DailyMetoprolol Succinate Er 25 MG TABLET, FILM COATED, EXTENDED RELEASE One Tablet At DinerMetformin 500 MG TABLET BidPlavix 75 MG TABLET, FILM COATED Once Daily Adverse Drug Reactions ReviewedNo Known Adverse Drug Reactions! Vaccination and Immunization( ) 2025-08 INFLUENZA( ) 2011-08 PNEUMOVAX( ) 2015-01 PCV13( ) 2025-08 COVID PFIZER( ) 2025-08 RSV PHARMACY(X) PCV20 or PCV21 Recommended(X) Shingrix Recommended(X) Tetanus or TD RecommendedImmunizations and Vaccinations Discussed and Implemented if feasible In the Office. Else referred to pharmacies. Surgical Mcjumyg2956-16 LAD Fvmjg8722-55 Distal Phalanx Amputation Rt. 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
--- OUTSIDE RECORDS SUMMARY | 2025-10-06 19:29 | XMS_ITS | Clinical Summary ---
Author Organization [facility] [employer] Address [address] [facility] [place] [address] Care Team Providers Care Diesel Engineer Name Role Phone Odin Alex MD Primary Care Provider [phone] Leo Wang MD Unavailable [phone] Mckenzie Gilliam MD Unavailable [phone] Source Comments [facility] [employer],non-owned Affiliates and Associated Physician Practices is amultiple site organization consisting of ambulatory clinics and hospital sitesin [place], [place] and [place]. This disclosure is being madepursuant to the Care Everywhere program and may not contain all information available regarding this patient. Last updated 18.[facility] [employer] Allergies No known active allergies Medications * [...] fluticasone propionate (Flonase) 50 MCG/ACT nasal spray [place] 2 (two) sprays into each nostril once [...] Active ipratropium (Atrovent) 0.06 % nasal spray [place] 2 (two) sprays into each nostril at [...] 90 tablet 2 12/24/19 25 025 Discontinued Active Problems Problem Noted Date Diagnosed [...] Eliquis 5 mg twice daily.He has a FDA0EB5-CXFm score of 2, therefore it is recommended that he remain anticoagulated for thromboprophylaxis. [facility] current use of antiarrhythmic drug Overview (11/02/2021): Last Assessment & Plan: The patient's ECG today does not indicate any changes that would prohibit the use of Sotalol. As long as they remain on this medication, an ECG will be performed every 6 months for monitoring. S/P ablation of atrial fibrillation 06/28/2017 Encounters Date Type Department Care Team Description 09/20/2025 Refill [facility] - Pulmonology [address] [facility] [address] [place] [address] Leo Wang MD Refill Request 09/12/2025 Patient Outreach [facility] - Care Coordination [address] [place] [address] Namrata Munoz Outreach Preventive Care 09/06/2025 10:30 AM CDT Office Visit [facility] - ENT [address] [place] [phone] Dinah Leonard, CROP DUSTER Dysphagia, unspecified type (Primary Dx); Hoarseness 09/06/2025 Travel 09/02/2025 Telephone [facility] - ENT [address] [place] [phone] Dinah Leonard, CROP DUSTER Speech Therapy 08/24/2025 Orders Only [facility] - ENT [address], [address] [address] Mitzi Ulloa, BUSINESS PROCESS ENGINEER-LABORER SAWMILL 08/23/2025 9:00 AM CDT Office Visit [facility] - ENT [address] [place] [phone] Johnson Jimenez MD Dysphagia, unspecified type (Primary Dx); Cerumen debris on tympanic membrane of both ears; Hoarseness 08/23/2025 Travel 08/15/2025 10:22 AM CDT - 08/15/2025 11:59 PM CDT Hospital Encounter [facility] [address] [place] [address] Johnson Jimenez MD Discharge Disposition: Home or Self Care 07/21/2025 Travel 07/21/2025 Refill [facility] - Pulmonology [address] [facility] [address] [place] [address] Leo Wang MD Refill Request 07/08/2025 Telephone [facility] - ENT [address] [place] [address] Louisa Casas, RN Appointment (New pt Tony) from Last 3 Months Immunizations Immunization Administration Dates Next Due INFLUENZA VACCINE, TRIV. (AF LURIA, FLUZONE TRIVALENT; 6MO+) (IIV3) 10/21/2014,10/21/2014,10/08/2013,2012 COVID PFIZER BIVALENT 12Y+ 30mcg/0.3ML 11/04/2022 Covid Pfizer primary Monoval ent 12+ yr 0.3ml 03/19/2022 Covid Pfizer primary monoval ent 12+ yr 0.3mL Purple cap 03/18/2022,08/30/2021,02/25/2021,2020,02/04/2021,01/28/2021 FLU VACCINE QUAD IIV4 SPLIT 0.25 ML IM 08/30/2021,10/20/2015,10/20/2015 INFLUENZA M2J7-98, HISTORIC VACCINE 11/04/2022,0 08/30/2021,11/07/2020 INFLUENZA VACCINE 11/04/2022,08/30/2021,11/07/20 20 INFLUENZA VACCINE, HIGH-DOSE [...] AM CDT Legal Sex Male 10:36 AM WOODWORK TEACHER Gender Identity Male 05/31/2021 11:18 AM CDT Sexual Orientation Straight 05/31/2021 11 :18 AM CDT Last Filed Vital Signs Vital Sign Reading Time Taken Comments Blood Pressure 114/71 08/23/2025 8:44 AM CDT Pulse 80 08/23/2025 8:44 AM CDT Temperature 36.3 C (97.4 F) 12/13/2024 3:36 PM WOODWORK TEACHER Respiratory Rate 20 12/13/2024 3:36 PM WOODWORK TEACHER Oxygen Saturation 96% 12/13/2024 3:36 PM WOODWORK TEACHER room air Inhaled Oxygen Concentration - - Weight 112.7 kg (248 lb 6.4 oz) 08/23/2025 8:44 AM CDT Height 182.9 cm (6') 08/23/2025 8:44 AM CDT Body Mass Index 33.69 08/23/2025 8:44 AM CDT Plan of Treatment Upcoming Encounters Date Type Department Care Team (Late st Contact Info) Description 10/18/2025 10:45 AM WOODWORK TEACHER Office Visit [facility] - ENT [address] [place] [address] Johnson Jimenez MD [address] [place] [address] [address] [place] [address] Health Maintenance Due Date Last Done Comments [...] Procedure Name Priority Date/Time Associated Diagnosis Comments SD LARYNGOSCOPY,FLEX FIBER,DIAGNOSTIC Routine 08/23/2025 9:52 AM CDT Dysphagia, unspecified type PROC CERUMEN REMOVAL Routine 08/23/2025 9:51 AM CDT Cerumen debris on tympanic membrane of both ears FL ESOPHAGRAM Routine 08/15/2025 11:15 AM CDT Dysphagia, unspecified type from Last 3 Months Results * SD LARYNGOSCOPY,FLEX FIBER,DIAGNOSTIC (08/23/2025 9:52 AM CDT) Narrative Johnson Jimenez MD - 08/23/2025 9:52 AM CDT Johnson Jimenez MD 08/23/2025 10:59 AM Procedure Note Endoscopy Type: Laryngoscopy without stroboscopy 00369 Endoscope: Flexible 4mm Scope Anesthesia: Lidocaine 2% [...] lobe. Mild esophageal dysmotility. > Dictated by Proposal Review Analyst I, Jennifer Zeng MD have personally reviewed [...] lobe. Mild esophageal dysmotility. > Dictated by Proposal Review Analyst I, Jennifer Zeng MD have personally reviewed and interpreted this examination/study. > Interpreting Provider: Jennifer Zeng MD on 08/16/2025 10:45 AM Johnson Jimenez MD FLUOROSCOPY ORDERABLES Final Result from Last 3 Months Insurance AETNA AETNA MEDICARE ADV AETNA MEDICARE ADV SELF PAY NO INSURANCE Member Subscriber Plan / Payer (Ef fective for All Dates) Name:Mesfin Russ Member ID:Not on file Relation to Subscriber:Not on file Name:MESFIN RUSS Subscriber ID:Not on file (Home) Address: [address] [place] [phone] Payer ID:Not on file Group ID:Not on file Type:Self Pay Address: [place], [place] SELF PAY NO INSURANCE Member Subscriber Plan / Payer (Ef fective for All Dates) Name:Mesfin Russ Member ID:Not on file Relation to Subscriber:Not on file Name:MESFIN RUSS Subscriber ID:Not on file (Home) Address: [address] [place] [phone] Payer ID:Not on file Group ID:Not on file Type:Self Pay Address: [place], [place] * Guarantor: MARIA D RUSS Account Type Relation to Patient Date of Phone Billing Address Personal/Family Spouse Care Teams Diesel Engineer Relationship Specialty Start Date End Date Odin Alex MD [address] [place] [address] [address] [place] [address] PCP - General Internal Medicine 04/12/19 [place] [address] [facility] [address] [place] [id number] PCP - Att[facility] 01/01/25 Mckenzie Gilliam MD [address] [facility] [address] [place] [address] Pulmonary Disease 07/21/25
--- OUTSIDE RECORDS SUMMARY | 2025-10-06 19:29 | XMS_ITS | Patient Health Record ---
Author Organization [facility] [place] ([address]) Address [address] [place] [address] Care Team Providers Care Media Operator Name Role Phone Odin Alex MD Primary Care Provider Dr. Jens Crockett Unavailable [phone] Hugo Dempsey Unavailable Allergies No Known Allergies [...] review and pick correct strength-formulatio n from [employer] options. If intended option is not shown, discontinue and re-order from Quick Search* Active Centrum THERAPEUTIC MULTIPLE VITAMINS WITH MINERALS 1 TAB(S) ORALLY ONCE A DAY *Please review and pick correct strength-formulatio n from [employer]Arrow[employer] options. If intended option is not shown, [...] Polyneuropathy due to type 2 diabetes mellitus (710989640) Type 2 diabetes mellitus with diabetic polyneuropathy (E11.42) Active confirmed Problem Chronic migraine without aura, non-refractory (disorder) (432602682592102) Migraine without aura, not intractable, without status migrainosus (G43.009) Active confirmed Problem Migraine with aura (1296182) Migraine with aura, not intractable, without status migrainosus (G43.109) Active confirmed Problem Chronic migraine without aura, non-intractable (444151384931623) Chronic migraine without aura, not intractable, without status migrainosus (G43.709) Active confirmed Problem Carpal tunnel syndrome (90789775) Carpal tunnel syndrome, bilateral upper limbs (G56.03) Active confirmed Plan Of Treatment No Information Insurance Providers Payer Name Payer Address Payer Phone Subscriber Number Group Number Insured Name Patient Relationship to Insured Coverage Start Date Coverage End Date [employer] Medicare [address] [place] [address] [id number] Billy Russ Self - patient is the insured 01/01/202 4 Medical (General) History Medical History History ICD Code HLD HTN PAFib COPD CASTRO Lumbar DDD OA DM2 Surgical History Surgery Date(Month/Year) S/p lumbar FLAVIO S/p cataracts S/p pilonidal cyst removal S/p cardiac ablation
== END 2025-10-06 12:13 | disposition home or self-care (01) ==
LOC: ANHNEURO 12:14
PROVIDERS: PCP Internal Medicine; Visit Provider Psychiatry & Neurology Neurology
DX: G56.03 Carpal tunnel syndrome, bilateral upper limbs (principal); G56.20 Lesion of ulnar nerve, unspecified upper limb; G62.89 Other specified polyneuropathies
CPT/HCPCS: 95886; 95911

== ENCOUNTER 2025-10-26 00:42 | Day surgery (SDC) | payer MEDICARE, SELFPAY ==
--- OUTSIDE RECORDS SUMMARY | 2024-05-15 15:30 | XMS_ITS ---
Author Organization Pending Sale To [facility] [place] ([address]) Address [address] [place] [address] Care Team Providers Care Conference Planning Manager Name Role Phone Odin Alex MD Primary Care Provider Dr. Jens Crockett Unavailable [phone] Hugo Dempsey Unavailable Unavailable ZZ-Migration, Provider Unavailable Unavailab le REASON FOR VISIT [facility] To [facility] Conversion Encounter Medications Medication SIG (Take, Route, [...] Active Encounters Encounter Location Date Provider Diagnosis [facility] [place] [address] 05/15/2024 Provider ZZ-Migration Plan Of Treatment No Information Progress Notes * Billy RUSS LDOB:1944 (80 yo M)Acc No.[id number]:05/15/2024 Patient: S Billy RAMIREZ L Provider: Ana Lilia Salas :1945 A ge:78 Y S ex:Male Date:05/15/2024 Address:[address] [place], [place] [id number] Pcp:Odin Alex MD Subjective: * Chief Complaints: * 1 . Multum To Medispan Conversion Encounter. * Medical History: * Medications: T aking Flonase Allergy Relief 50 MCG/ACT Suspension 1 spray(s) in each nostril once a day , Taking Centrum THERAPEUTIC MULTIPLE VITAMINS WITH MINERALS TABLET 1 TAB(S) ORALLY ONCE A DAY , Notes to Pharmacist: *Please review and pick correct strength-formulation from VeriFonespan options. If intended option is not shown, discontinue and re-order from Quick Search*, Taking Melatonin 10 MG TABLET, EXTENDED RELEASE 1 TAB(S) ORALLY ONCE A DAY (AT BEDTIME) , Notes to Pharmacist: *Please review and pick correct strength-formulation from VeriFonespan options. If intended option is not shown, [...] * Electronic signature of Yolie STINSON-Migration on 10/26/2025 at 12:44 AM ELECTRICAL ENGINEERING TEACHER Sign off status: Pending * Provider: Ana Lilia gonzalez Migration Date: 0 05/15/2024 Generated for Satish benitez/Nicole/Ryan on: 12/26/2024 12:44 AM ELECTRICAL ENGINEERING TEACHER
--- OUTSIDE RECORDS SUMMARY | 2025-07-07 05:00 | XMS_ITS ---
Author Organization [facility] Address [address] [place], [place] [id number] Care Team Providers Care Respiratory Care Program Director Name Role Phone DANNY ROSE Unavailable [phone] Odin Alex Unavailable Unavailable REASON FOR VISIT [...] Tablet Oral; Duration: 90 Days Active Ipratropium [place] 0.06 % Solution Nasal; Duration: 14 Days Active terbinafine 250 MG Oral Tablet ORAL terbinafine 250 MG Oral TabletOriginal Medicationterbinafine 250 MG Oral Tablet *Reorder from [employer] for eRx and Interaction Alerts* 04/12/2021 Active Eliquis Active Social History Social History Additional Details Category Social Info Options Details Migrated Social History Migrated Social History Alcohol intake : , History of tobacco use : , Smoking Status : Never smoked Encounters Encounter Location Date Provider Diagnosis [facility] [place] [address] [place], [place] [id number] 07/07/2025 DANNY ROSE 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 ; Pain in right foot M79.671 ; Atherosclerosis of [place] arteries of extremities with intermittent claudication, bilateral legs I70.213 and Onychomycosis B35.1 Assessments Encounter Date Diagnosis (ICD Code) Assessment Notes Treatment Notes Treatment Clinical Notes Section Notes 07/07/2025 Non-pressure chronic ulcer of other part of right foot limited to breakdown of skin (ICD-10 - L97.511) 07/07/2025 Pain in right foot (ICD-10 - M79.671) 07/07/2025 Atherosclerosis of [place] arteries of extremities with intermittent claudication, bilateral [...] 12:30:00 PM, [address], [facility] [address], [place], [place], [phone], History and Physical Notes * HPI (History [...] * MESFIN CASTAÑEDA LDOB:1944 (80 yo M)Acc No.[id number]:07/07/2025 Patient: Irineo MESFIN RAMIREZ Provider: Damian Rose DPM :1945 A ge:80 Y S ex:Male Date:07/07/2025 Address:[address] [place], [place] [id number] Subjective: * Chief Complaints: * * General [...] Medicationterbinafine 250 MG Oral Tablet *Reorder from [employer] for eRx and Interaction Alerts*Breztri Aerosphere 160-9-4.8 MCG/ACT Aerosol INHALE 2 PUFFS TWICE DAILY Inhalation Valsartan-hydroCHLOROthiazide 320-25 MG Tablet Oral Ipratropium [place] 0.06 % Solution Nasal Metoprolol Succinate ER [...] Medicationterbinafine 250 MG Oral Tablet *Reorder from [employer] for eRx and Interaction Alerts*Taking Breztri Aerosphere 160-9-4.8 MCG/ACT Aerosol INHALE 2 PUFFS TWICE DAILY Inhalation Taking Valsartan-hydroCHLOROthiazide 320-25 MG Tablet Oral Taking Ipratropium [place] 0.06 % Solution Nasal Taking Metoprolol Succinate [...] - M79.671 3 . A therosclerosis of [place] arteries of extremities with intermittent claudication, bilateral [...] 9 weeks Billing Information: * Visit Code: 32895 Office Visit, Est Pt., Level 3. * Procedure Codes: * Electronic signature of DANNY ROSE DPM on 10/26/2025 at 12:45 AM BLOOD BANK TECHNOLOGIST Sign off status: Pending * Provider: Damian Rose DPM Date: 0 07/07/2025 Generated for Satish benitez/Nicole/Ryan on: 12/26/2024 12:45 AM BLOOD BANK TECHNOLOGIST
--- OUTSIDE RECORDS SUMMARY | 2025-09-08 05:20 | XMS_ITS ---
Author Organization [facility] Address [address] [place], [place] [id number] Care Team Providers Care News Agent Name Role Phone DANNY ROSE Unavailable [phone] Odin Alex Unavailable Unavailable Allergies No Known [...] Medicationterbinafine 250 MG Oral Tablet *Reorder from [employer] for eRx and Interaction Alerts* 04/12/2021 Active Metoprolol Succinate ER 25 MG Tablet Extended Release 24 Hour Oral; Duration: 90 Days Active Ipratropium [place] 0.06 % Solution Nasal; Duration: 14 Days [...] Location Date Provider Diagnosis [facility] [address] [place], [place] [id number] 09/08/2025 DANNY ROSE 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 ; Pain in right foot M79.671 ; Onychomycosis B35.1 ; Atherosclerosis of [place] arteries of extremities with intermittent claudication, bilateral legs I70.213 ; Neuroma D36.10 and 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 Neuroma Following skin prep, a total of 3 ccs of a 1-1-1 mix of 0.5% marcaine plain, Kenalog, and dexamethasone sodium phosphate was injected into the patients bilateral second interspace Other Nails 1-5 Bilateral were debrided extensively with nail nippers and emery board, reducing length and girth to pink healthy tissue with any subungual debris and necrotic tissue removed, Preventing Falls: Care Instructions material was printed, Preventing Falls: Care Instructions material was published Next Appt Details Follow Up: 9 weeks, Reason: Provider Name:DANNY COBSY EUGENIA, 11/15/2025 12:30:00 PM, [address], [facility] [address], [place], [place], [id number], History and Physical Notes * HPI (History [...] * MESFIN CASTAÑEDA LDOB:1944 (80 yo M)Acc No.[id number]:09/08/2025 Patient: MESFIN HUGGINS Provider: Damian Rose DPM :1945 A ge:80 Y S ex:Male Date:09/08/2025 Address:[address] [place] [address] Subjective: * Chief Complaints: * * General [...] Medicationterbinafine 250 MG Oral Tablet *Reorder from [employer] for eRx and Interaction Alerts*Breztri Aerosphere 160-9-4.8 MCG/ACT Aerosol INHALE 2 PUFFS TWICE DAILY Inhalation Valsartan-hydroCHLOROthiazide 320-25 MG Tablet Oral Ipratropium [place] 0.06 % Solution Nasal Metoprolol Succinate ER [...] Medicationterbinafine 250 MG Oral Tablet *Reorder from [employer] for eRx and Interaction Alerts*Taking Breztri Aerosphere 160-9-4.8 MCG/ACT Aerosol INHALE 2 PUFFS TWICE DAILY Inhalation Taking Valsartan-hydroCHLOROthiazide 320-25 MG Tablet Oral Taking Ipratropium [place] 0.06 % Solution Nasal Taking Metoprolol Succinate [...] reconciled with the patient * Allergies: N .K.D.A.yesAllergies Verified. Objective: * Vitals: H t: 73.00 [...] in right foot - M79.671 3 . O nychomycosis - B35.1 4 . A therosclerosis of [place] arteries of extremities with intermittent claudication, bilateral legs - I70.213 5 . N euroma - D36.10 ?6. 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 N euroma Notes: Following skin prep, a total of 3 ccs of a 1-1-1 mix of 0.5% marcaine plain, Kenalog, and dexamethasone sodium phosphate was injected into the patients bilateral second interspace 3. O thers Notes: Nails 1-5 Bilateral were debrided extensively with nail nippers and emery board, reducing length and girth to pink healthy tissue with any subungual debris and necrotic tissue removed, Preventing Falls: Care Instructions material was printed, Preventing Falls: Care Instructions material was published * Procedure Codes: 6 4455 N BLOCK INJ, PLANTAR DIGIT, Modifiers: 50 * Follow Up: 9 weeks Billing Information: * Visit Code: 44595 Office Visit, Est Pt., Level 3. Modifiers: 25 * Procedure Codes: 30026 N BLOCK INJ, PLANTAR DIGIT. Modifiers: 50 * Electronic signature of DANNY ROSE DPM on 10/26/2025 at 12:45 AM KIER TENDER Sign off status: Pending * Provider: Damian Rose, STEFANY Date: 1 Generated for Satish benitez/Nicole/Ryan on: 12/26/2024 12:45 AM KIER TENDER
[2025-10-18 14:58] VITALS: BMI 31.2
--- NOTE | 2025-10-18 15:20 | PC.NURSE ---
Spoke with patient regarding medication eliquis. Patient verbalizes understanding that the last dose is to be taken on 10/23/2025 and the Endoscopist will instruct them when to restart after the procedure.
--- OUTSIDE RECORDS SUMMARY | 2025-10-26 00:44 | XMS_ITS | Clinical Summary ---
Author Organization [facility] Address [address] [place] [address] Phone Care Team Providers Care Brim Cutter Name Role Phone Odin Alex MD Primary Care Provider Allergies No known active allergies Medications escitalopram [...] Use as directed WIT BIPAP USE Active Budeson-Glycop yrrol-Formoter ol 160-9-4.8 MCG/ACT Aerosol take 1 Puff by inhalation 2 times daily. Active loratadine (Claritin) 10 MG Tablet Take 10 mg by mouth daily. Active fluticasone (FLONASE) 50 MCG/ACT Suspension 1 [place] by Nasal route daily. Use in each [...] mouth nightly as needed for Sleep. Active valsartan-hydr oCHLOROthiazid e (DIOVAN-HCT) 320-25 MG Tablet Take 1 Tablet by mouth daily. Active metoprolol Succinate (TOPROL-XL) 100 MG TABLET SR 24 HR Take 100 mg by mouth daily. Active pravastatin (PRAVACHOL) 40 MG Tablet Take 40 mg by mouth every evening. Active pantoprazole (PROTONIX) 40 MG Tablet Delayed Response Take 40 mg by mouth every evening. Active ibuprofen (MOTRIN) 600 MG Tablet Take 1 Tablet by mouth every 8 hours as needed for Fever (for temperature greater than 100.4 F.). 10/14/20 Active apixaban (ELIQUIS) 5 MG Tablet Take 5 mg by mouth 2 times daily. Discontinu ed(Discont inued in Anesthesia ) acetaminophen (TYLENOL) 325 MG Tablet Take 1 Tablet by mouth every 6 hours as needed for Fever (for temperature greater than 100.4 F.) for up to 10 days. Do not exceed 4000 mg of acetaminophen in 24 hour from all sources. 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 10/14/2025 Encounters Date Type Department Care Team Description 10/14/2025 10:34 AM PERCHER Anesthesia Event [facility]iop [address] [place] [address] Sanjeev Wiggins MD 10/14/2025 10:10 AM PERCHER - 10/14/2025 11:40 AM PERCHER Surgery [facility] [address] [place] [address] Andrew Mabry MD MINIMALLY INVASIVE LUMBAR DECOMPRESSION OF BILATERAL LUMBAR TWO-THREE, LUMBAR THREE-FOUR 10/14/2025 8:36 AM PERCHER - 10/14/2025 12:50 PM PERCHER Hospital Encounter [facility] Preop/Pacu II [address] [place] [address] Andrew Mabry MD Neurogenic claudication due to lumbar spinal stenosis Discharge Disposition: Discharged to home or Selfcare 10/14/2025 Travel 10/04/2025 Travel from Last 3 Months Family History Medical History Relation Name Comments Cancer Father LUNG Relation Name Status Comments Father Mother Social History Tobacco Use Types Packs/Day Years Used Date Smoking Tobacco: Former Cigarettes 0.5 40 1 98 - 2020 Smokeless Tobacco: Never Alcohol Use Standard Drinks/Week Comments Yes 0 (1 standard drink = 0.6 oz pur e alcohol) I DRINK ONCE MONTHLY Sex and Gender Information Value Date Recorded Sex Assigned at Not on file Legal Sex Male 10:09 AM PERCHER Gender Identity Not on file Sexual Orientation Not on file Last Filed Vital Signs Vital Sign Reading Time Taken Comments Blood Pressure 112/76 10/14/2025 12:25 PM PERCHER Pulse 71 10/14/2025 12:25 PM PERCHER Temperature 36.2 C (97.2 F) 10/14/2025 12:25 PM PERCHER Respiratory Rate 12 10/14/2025 12:2 5 PM PERCHER Oxygen Saturation 99% 10/14/2025 12: 25 PM PERCHER Inhaled Oxygen Concentration - - Weight 106.1 kg (233 lb 12.8 oz) 10/14/2025 9:06 AM PERCHER Height 182.9 cm (6') 10/14/2025 9:06 AM PERCHER Body Mass Index 31.71 10/14/2025 9:06 AM PERCHER Plan of Treatment Health Maintenance Due Date Last Done Comments Medicare Initial AWV [id number] 12/01/2024 Zoster Immunization (2 of 2) 11/08/2025 09/13/2025 Lung Cancer Screening 02/06/2026 02/06/2025 , 09/03/2024, 03/08/2024, Additional history exists SARS-COV-2 Immunization ( season) 2026 09/13/2025, 11/04/2022, 03/19/2022, Additional history exists Hepatitis C Virus (HCV) Screening Completed 09/17/2021 Pneumococcal Immunization (50+ years) Completed 08/13/2023, 01/03/2015, 09/01/2011 TdaP Immunization Completed 02/06/2025 Influenza Immunization Completed , 09/09/2024, 10/30/2023, Additional history exists Respiratory Syncytial Virus (RSV) Immunization (Adult) Completed 09/13/2025 Hepatitis B Immunization Aged Out No longer eligible based on patient's age to complete this topic Human Papillomavirus (HPV) Immunization Aged Out No longer eligible based on patient's age to complete this topic Meningococcal Immunization (ACWY) Aged Out No longer eligible based on patient's age to complete this topic Rotavirus Immunization Aged Out No lo nger eligible based on patient's age to complete this topic Procedures Procedure Name Priority Date/Time Associated Diagnosis Comments XR SURGICAL EXAM Routine 10/14/2025 11:3 5 AM PERCHER POCT GLUCOSE Routine 10/14/2025 11:35 AM PERCHER PATHOLOGY SURGICAL Routine 10/14/2025 11:02 AM PERCHER [place] PERC LAMINO-/LAMINECTO MY INDIR IMAG GUIDE LUMBAR 10/14/2025 10:14 AM PERCHER LUMBAR STENOSIS WITH NEUOGENIC CLAUDICATION, ENCOUNTER FOR EXAMINATION FOR NORMAL COMPARISON CONTROL CLINICAL RESEARCH PROGRAM Special Needs 6' 233LBS DM, TO HOLD OZEMPIC X 7 DAYS, COPD, WEARS BIPAP NIGHTLY WITH O2 AT 2L, SOB WITH WALKING ANYMORE THAN A SHORT DISTANCE, CAD WITH LAD STENT OCT 2024, TO HOLD PLAVIX X 7 DAYS AND ELIQUIS X 3 DAYS PRE-OP. CHF. PUMONARY, BLOOD THINNER AND MEDICAL CLEARANCE RECEIVED. NDSC DCMPRN 1 NTRSPC LUMBAR 10/14/2025 10:14 AM PERCHER LUMBAR STENOSIS WITH NEUOGENIC CLAUDICATION, ENCOUNTER FOR EXAMINATION FOR NORMAL COMPARISON CONTROL CLINICAL RESEARCH PROGRAM Special Needs 6' 233LBS DM, TO HOLD OZEMPIC X 7 DAYS, COPD, WEARS BIPAP NIGHTLY WITH O2 AT 2L, SOB WITH WALKING ANYMORE THAN A SHORT DISTANCE, CAD WITH LAD STENT OCT 2024, TO HOLD PLAVIX X 7 DAYS AND ELIQUIS X 3 DAYS PRE-OP. CHF. PUMONARY, BLOOD THINNER AND MEDICAL CLEARANCE RECEIVED. LAMINECTOMY,>2 SGMT,LUMBAR 10/14/2025 10:14 AM PERCHER LUMBAR STENOSIS WITH NEUOGENIC CLAUDICATION, ENCOUNTER FOR EXAMINATION FOR NORMAL COMPARISON CONTROL CLINICAL RESEARCH PROGRAM Special Needs 6' 233LBS DM, TO HOLD OZEMPIC X 7 DAYS, COPD, WEARS BIPAP NIGHTLY WITH O2 AT 2L, SOB WITH WALKING ANYMORE THAN A SHORT DISTANCE, CAD WITH LAD STENT OCT 2024, TO HOLD PLAVIX X 7 DAYS AND ELIQUIS X 3 DAYS PRE-OP. CHF. PUMONARY, BLOOD THINNER AND MEDICAL CLEARANCE RECEIVED. LAMINECTOMY,LUMBA R 10/14/2025 10:14 AM PERCHER LUMBAR STENOSIS WITH NEUOGENIC CLAUDICATION, ENCOUNTER FOR EXAMINATION FOR NORMAL COMPARISON CONTROL CLINICAL RESEARCH PROGRAM Special Needs 6' 233LBS DM, TO HOLD OZEMPIC X 7 DAYS, COPD, WEARS BIPAP NIGHTLY WITH O2 AT 2L, SOB WITH WALKING ANYMORE THAN A SHORT DISTANCE, CAD WITH LAD STENT OCT 2024, TO HOLD PLAVIX X 7 DAYS AND ELIQUIS X 3 DAYS PRE-OP. CHF. PUMONARY, BLOOD THINNER AND MEDICAL CLEARANCE RECEIVED. POCT GLUCOSE Routine 10/14/2025 9:10 AM PERCHER from Last 3 Months Results * XR SURGICAL EXAM (10/14/2025 11:35 AM PERCHER) us Andrew Mabry MD IMG DIAGNOSTIC ORDERABLE S Final Result * (ABNORMAL) POCT Glucose (10/14/2025 11:35 AM PERCHER) Only the most recent of2 resultswithin the time period is included. GLUCOSE,BEDSID E POCT 132(H) 70 - 99 mg/dL 10/20/2025 7:34 AM PERCHER [facility] Comment:Patient RN Performed Blood 10/14/2025 11:3 5 AM PERCHER 10/20/2025 7:34 AM PERCHER us None Provider POINT OF CARE TESTING Final Resu lt [facility] [address] [place] [address] * Pathology Surgical (10/14/2025 11:02 AM PERCHER) Case Report Surgical Pathology Report Case: [id number] Authorizing Provider: Andrew Mabry MD Collected: 10/14/2025 11:02 AM Ordering Location: [facility] Received: 10/17/2025 08:42 AM [facility] Main OR Pathologist: Lu Ponce MD PhD Specimen: Back, LIGAMENT FLAVUM LUMBAR TWO/THREE AND THREE/FOUR 10/18/2025 10:09 AM PERCHER [facility] FINAL DIAGNOSIS Lumbar Decompression of L2-3, L3-4, Bilateral: - Benign bone, fibrofatty tissue, and cartilage 10/18/2025 10:09 AM PERCHER [facility] at [address] PERCHER Pre-Operative Diagnosis LUMBAR STENOSIS WITH NEUOGENIC CLAUDICATION, ENCOUNTER FOR EXAMINATION FOR NORMAL COMPARISON CONTROL CLINICAL RESEARCH PROGRAM 10/18/2025 10:09 AM PERCHER [facility] Gross Description A. LIGAMENT FLAVUM LUMBAR TWO/THREE AND THREE/FOUR Received in formalin labeled with the patient identifiers and ligamentum flavum lumbar 2/3 and 3/4 is an aggregate of monzon-brown to monzon-white tissue fragments measuring 2.0 x 1.5 x 0.3 cm. Warehouse Administrative Assistant sections are submitted in cassette A1. Total time of formalin fixation: 70 hours and 39 minutes. 10/18/2025 10:09 AM PERCHER [facility] Microscopic Description Microscopic examination was performed which supports the final diagnosis. All control tissues stained appropriately. 10/18/2025 10:09 AM PERCHER [facility] Tissue STRUCTURE OF BACK OF TRUNK / Unknown 10/14/2025 11:02 AM PERCHER 10/17/2025 8:42 AM PERCHER us Andrew Mabry MD PATHOLOGY/CYTOLOGY ORDER ASUNCION Final Result [facility] [address] [place] [address] from Last 3 Months Insurance MEDICARE C [employer] Care Teams Brim Cutter Relationship Specialty Start Date End Date Odin Alex MD [address] [facility] [address] [place] [address] PCP - General Internal Medicine 10/14/25
--- OUTSIDE RECORDS SUMMARY | 2025-10-26 00:45 | XMS_ITS | Encounter Summary ---
Author Organization [facility] Address [address] [place] [address] Care Team Providers Care Transit Survey Worker Name Role Phone Odin Alex MD Primary Care Provider Gene De La Garza MD Unavailable [phone] Encounter Details Date Type Department Care Team (Late st Contact Info) Description 03/27/2017 Orders Only [facility] Provider, MD Shanell [address] [place], [place] [id number] Social History Tobacco Use Types Packs/Day Years Used Date Smoking Tobacco: Former Cigarettes Q uit: 12/01/2000 Comments:Smoking History Pac ks/day: 20 Packs Alcohol Use Standard Drinks/Week Comments No 0 (1 standard drink = 0.6 oz pur e alcohol) Sex and Gender Information Value Date Recorded Sex Assigned at Not on file Legal Sex Male 10:59 AM ELECTRICAL LINEMAN Gender Identity Male 12/28/2021 10:54 PM ELECTRICAL LINEMAN Sexual Orientation Straight 12/28/2021 10 :54 PM ELECTRICAL LINEMAN documented as of this encounter Functional Status [...] on filedocumented in this encounter Care Teams Transit Survey Worker Relationship Specialty Start Date End Date Odin Alex MD PCP - General 02/28/17 Gene De La Garza MD [address] [place] [address] Consulting Physician Cardiology 11/26/24 documented as of this encounter
--- OUTSIDE RECORDS SUMMARY | 2025-10-26 00:45 | XMS_ITS | Patient Health Record ---
Author Organization [facility] [place] ([address]) Address [address] [place] [address] Care Team Providers Care Hide Handler Name Role Phone Odin Alex MD Primary Care Provider Dr. Jens Crockett Unavailable [phone] Hugo Dempsey Unavailable Allergies No Known Allergies [...] review and pick correct strength-formulatio n from myOrder options. If intended option is not shown, discontinue and re-order from Quick Search* Active Centrum THERAPEUTIC MULTIPLE VITAMINS WITH MINERALS 1 TAB(S) ORALLY ONCE A DAY *Please review and pick correct strength-formulatio n from Sphere Fluidicsan options. If intended option is not shown, [...] Polyneuropathy due to type 2 diabetes mellitus (449356392) Type 2 diabetes mellitus with diabetic polyneuropathy (E11.42) Active confirmed Problem Chronic migraine without aura, non-refractory (disorder) (935029414537078) Migraine without aura, not intractable, without status migrainosus (G43.009) Active confirmed Problem Migraine with aura (1777575) Migraine with aura, not intractable, without status migrainosus (G43.109) Active confirmed Problem Chronic migraine without aura, non-intractable (286276257252488) Chronic migraine without aura, not intractable, without status migrainosus (G43.709) Active confirmed Problem Carpal tunnel syndrome (24547029) Carpal tunnel syndrome, bilateral upper limbs (G56.03) Active confirmed Plan Of Treatment No Information Insurance Providers Payer Name Payer Address Payer Phone Subscriber Number Group Number Insured Name Patient Relationship to Insured Coverage Start Date Coverage End Date [employer] Medicare [address] [place] [address] [id number] Billy Russ Self - patient is the insured 01/01/202 4 Medical (General) History Medical History History ICD Code HLD HTN PAFib COPD CASTRO Lumbar DDD OA DM2 Surgical History Surgery Date(Month/Year) S/p lumbar FLAVIO S/p cataracts S/p pilonidal cyst removal S/p cardiac ablation
--- OUTSIDE RECORDS SUMMARY | 2025-10-26 00:45 | XMS_ITS ---
Author Name Sanchez RN, CUSTOMER CARE PROFESSIONAL, Bonita Whitten Address [address] [place] [address] Phone [phone] Organization [facility] Care Team Providers Care City Clerk Name Role Phone Shameka Bradford Unavailable [phone] Reason for Referral Not Available Allergies, adverse [...] mplaint [facility] [place], [place], 12/30/2024 Encntr for f/u exam aft trtm t for cond oth than malig neoplmAcute respiratory failure with hypoxia [facility] [place], [place] 12/30/2024 Encntr for f/u exam aft trtm t for cond oth than malig neoplmAcute respiratory failure with hypoxia [facility] 7 Day Disch [place], [place] 12/30/2024 Encntr for f/u exam aft trtm t for cond oth than malig neoplmAcute respiratory failure with hypoxia Telephone E/M Service; 11-20 min of Medical Discussion (Audio Only) [place], [place], 01/03/2025 Acute respiratory failure with hypoxia Telephone E/M Service; 11-20 min of Medical Discussion (Audio Only) [place], 01/03/2025 Acute respiratory failure with hypoxia Telephone E/M Service; 11-20 min of Medical Discussion (Audio Only) [place], 01/03/2025 Acute respiratory failure with hypoxia Telephone E/M Service; 11-20 min of Medical Discussion (Audio Only) [place], [place], 01/03/2025 Acute respiratory failure with hypoxia Vital Signs Date of Collection Vitals 2024-12-30 12:11:34 Pain Scale - 7.0 {sc ore} 2025-01-03 09:21:47 BP Diastolic - 54.0 mm[Hg]BP Systolic - 134.0 mm[Hg]O2 % BldC Oximetry - 93.0 % Social History Sex Male History of Procedures Procedures Service Procedure code Service date Servicing provider Phone# [facility] Day Disch [id number] 2024-12-30 No Data Available No Data Avail able Medrec Completed within 30 Days of Discharge 2024-12-30 No Data Available No Data Availa ble Pain Assessment - Pain Documented 1125F 2024-12-30 No Data Available No Data Availa ble Telephone E/M Service; 11-20 min of Medical Discussion (Audio Only) [id number] 2025-01-03 No Data Available No Data Availa [...] Plans 2024-12-30 12:11:34 Pt went to the [facility] due to breathing issues. Was discharged home. Advised to f/u with PCP. Has PCP visit on 01/11/25 and is waiting to get scheduled with a new Pulmonary doctor.Pt Agreed to a post discharge visit with a [facility] Provider: Appointment scheduled with Shameka Bradford RN, CUSTOMER CARE PROFESSIONAL on Friday01/03/2025 at 4:30 pm (EST) - 3:30 pm (INSPECTOR SEMICONDUCTOR WAFER).RN reinforced availability of UC provider / for 30 days after discharge and encouraged CB w/ any concerns or if pt is worse in any way. Advised pt to call to reach our staff.Needs/concerns for [facility] provider to address during PD visit [...] IPAdm it Date: 12/24/24Discharge Date: 12/27/24Hospital name: [facility] diagnosis: ACUTE RESPIRATORY FAILURE WITH HYPOXIA [...] [facility] routine medications, and no questions or concerns regarding these.
--- OUTSIDE RECORDS SUMMARY | 2025-10-26 00:45 | XMS_ITS | Clinical Summary ---
Author Organization [facility] [employer] Address [address] [place] [address] Care Team Providers Care Baby Formula Worker Name Role Phone Odin Alex MD Primary Care Provider [phone] Leo Wang MD Unavailable [phone] Mckenzie Gilliam MD Unavailable [phone] Source Comments [facility] [employer],non-owned Affiliates and Associated Physician Practices is amultiple site organization consisting of ambulatory clinics and hospital sitesin [place], [place], [place] and [place]. This disclosure is being madepursuant to the Care Everywhere program and may not contain all information available regarding this patient. Last updated 18.[facility] [employer] Allergies No known active allergies Medications * Be aware that medications may not be up to date on this document. Alwaysverify current medications with the patient. pantoprazole EC (PROTONIX) 40 MG tablet Take 1 (one) tablet by mouth once daily 1 9 Active pravastatin (PRAVACHOL) 40 MG tablet Take 1 (one) tablet by mouth at bedtime Active metoprolol succinate XL 24hr (TOPROL XL) 100 MG tablet Take 25 mg by mouth once daily 0 Active diphenhydrAMIN E (BENADRYL) 25 MG capsule [...] fluticasone propionate (Flonase) 50 MCG/ACT nasal spray Snyder 2 (two) sprays into each nostril once daily as needed Active zolpidem (Ambien) 5 MG tablet Take 1 tablet my mouth at night as directed, may repeat x 1 if needed. 2 tablet 3 Active Additional Information Patient not taking.Reason: Patient adjusted, Reported on 08/23/2025 escitalopram (Lexapro) 10 MG tablet 4 Active imiquimod (Aldara) 5 % cream APPLY CREAM TOPICALLY TO FOREHEAD AT NIGHT AND THEN WASH OFF IN THE MORNING FOR 2 WEEKS ON, 2 WEEKS OFF, THEN 2 WEEKS AGAIN 3 Active ALPRAZolam (Xanax) 0.25 MG tablet Take 1 (one) tablet by mouth at bedtime 4 Active naltrexone (Revia) 1.5 MG capsule Take 1 (one) capsule by mouth once daily 4 Active furosemide (Lasix) 40 MG tablet Take 1 (one) tablet by mouth once daily 4 Active Atrovent HFA 17 MCG/ACT inhaler Inhale 2 (two) puffs by mouth 4 times daily 4 Active traZODone (Desyrel) 100 MG tablet Take 1 (one) tablet by mouth at bedtime 4 Active Plavix 75 MG tablet Take 1 (one) tablet by mouth once 4 Active albuterol HFA (Proventil; Ventolin; Proair) 108 (90 Base) MCG/ACT inhaler INHALE 2 PUFFS BY MOUTH EVERY 6 HOURS NEEDED 18 g 5 5 Active Eliquis 5 MG tablet Take 1 (one) tablet by mouth 2 times daily 5 Active benzonatate (Tessalon) 200 MG capsule Take 1 (one) capsule by mouth 3 times daily as needed for Cough 5 Active EQ Mucus Relief 600 MG tablet Take 1 (one) tablet by mouth every 12 hours 5 Active ipratropium (Atrovent) 0.06 % nasal spray Snyder 2 (two) sprays into each nostril at bedtime 5 Active metFORMIN (Glucophage) 500 MG tablet Take 1 (one) tablet by mouth 2 times daily with morning and evening meal 5 Active Semaglutide (OZEMPIC, 1 MG/DOSE, SC) 1 mg by Injection route every 7 days (once a week) 5 Active montelukast (Singulair) 10 MG tablet Take 1 tablet by mouth once daily 90 tablet 3 5 Active Active Problems Problem Noted Date Diagnosed [...] Eliquis 5 mg twice daily.He has a YAW4HT6-MDPk score of 2, therefore it is recommended that he remain anticoagulated for thromboprophylaxis. prison current use of antiarrhythmic drug Overview (11/02/2021): Last Assessment & Plan: The patient's ECG today does not indicate any changes that would prohibit the use of Sotalol. As long as they remain on this medication, an ECG will be performed every 6 months for monitoring. S/P ablation of atrial fibrillation 06/28/2017 Encounters Date Type Department Care Team Description 09/20/2025 Refill [facility] - Pulmonology [address] [facility] [address] [place] [address] Leo Wang MD Refill Request 09/12/2025 Patient Outreach [facility] - Care Coordination [address] [place] [phone] Namrata Munoz Outreach Preventive Care 09/06/2025 10:30 AM CDT Office Visit [facility] - ENT [address] [place] [phone] Dinah Leonard, CONTRACT RECRUITER Dysphagia, unspecified type (Primary Dx); Hoarseness 09/06/2025 Travel 09/02/2025 Telephone [facility] - ENT [address] [place] [phone] Dinah Leonard, CONTRACT RECRUITER Speech Therapy 08/24/2025 Orders Only [facility] - ENT [address] , [facility] [address] [place] [phone] Mitzi Ulloa, DRUM CARRIER-SUPERVISOR AIRCRAFT CLEANING 08/23/2025 9:00 AM CDT Office Visit [facility] - ENT [address] [place] [phone] Johnson Jimenez MD Dysphagia, unspecified type (Primary Dx); Cerumen debris on tympanic membrane of both ears; Hoarseness 08/23/2025 Travel 08/15/2025 10:22 AM CDT - 08/15/2025 11:59 PM CDT Hospital Encounter [facility] [address] [place] [phone] Johnson Jimenez MD Discharge Disposition: Home or Self Care from Last 3 Months Immunizations Immunization Administration Dates Next Due INFLUENZA VACCINE, TRIV. (AF LURIA, FLUZONE TRIVALENT; 6MO+) (IIV3) 10/21/2014,10/21/2014,10/08/2013,2012 COVID PFIZER BIVALENT 12Y+ 30mcg/0.3ML 11/04/2022 Covid Pfizer primary Monoval ent 12+ yr 0.3ml 03/19/2022 Covid Pfizer primary monoval ent 12+ yr 0.3mL Purple cap 03/18/2022,08/30/2021,02/25/2021,2020,02/04/2021,01/28/2021 FLU VACCINE QUAD IIV4 SPLIT 0.25 ML IM 08/30/2021,10/20/2015,10/20/2015 INFLUENZA O2V8-73, HISTORIC VACCINE 11/04/2022,0 08/30/2021,11/07/2020 INFLUENZA VACCINE 11/04/2022,08/30/2021,11/07/20 [...] AM CDT Legal Sex Male 10:36 AM MANUAL CONTROL AUGER PRESS OPERATOR Gender Identity Male 05/31/2021 11:18 AM CDT Sexual Orientation Straight 05/31/2021 11 :18 AM CDT Last Filed Vital Signs Vital Sign Reading Time Taken Comments Blood Pressure 114/71 08/23/2025 8:44 AM CDT Pulse 80 08/23/2025 8:44 AM CDT Temperature 36.3 C (97.4 F) 12/13/2024 3:36 PM MANUAL CONTROL AUGER PRESS OPERATOR Respiratory Rate 20 12/13/2024 3:36 PM MANUAL CONTROL AUGER PRESS OPERATOR Oxygen Saturation 96% 12/13/2024 3:36 PM MANUAL CONTROL AUGER PRESS OPERATOR room air Inhaled Oxygen Concentration - - Weight 112.7 kg (248 lb 6.4 oz) 08/23/2025 8:44 AM CDT Height 182.9 cm (6') 08/23/2025 8:44 AM CDT Body Mass Index 33.69 08/23/2025 8:44 AM CDT Plan of Treatment Health Maintenance Due Date [...] Procedure Name Priority Date/Time Associated Diagnosis Comments [place] LARYNGOSCOPY,FLEX FIBER,DIAGNOSTIC Routine 08/23/2025 9:52 AM CDT Dysphagia, unspecified type PROC CERUMEN REMOVAL Routine 08/23/2025 9:51 AM CDT Cerumen debris on tympanic membrane of both ears FL ESOPHAGRAM Routine 08/15/2025 11:15 AM CDT Dysphagia, unspecified type from Last 3 Months Results * AZ LARYNGOSCOPY,FLEX FIBER,DIAGNOSTIC (08/23/2025 9:52 AM CDT) Narrative Johnson Jimenez MD - 08/23/2025 9:52 AM CDT Johnson Jimenez MD 08/23/2025 10:59 AM Procedure Note Endoscopy Type: Laryngoscopy without stroboscopy 94238 Endoscope: Flexible 4mm Scope Anesthesia: Lidocaine 2% [...] lobe. Mild esophageal dysmotility. > Dictated by Chief Controller Center I, Jennifer Zeng MD have personally reviewed [...] lobe. Mild esophageal dysmotility. > Dictated by Chief Controller Center I, Jennifer Zeng MD have personally reviewed and interpreted this examination/study. > Interpreting Provider: Jennifer Zeng MD on 08/16/2025 10:45 AM Johnson Jimenez MD FLUOROSCOPY ORDERABLES Final Result from Last 3 Months Insurance [employer] [facility] MEDICARE [facility] SELF PAY NO INSURANCE Member Subscriber Plan / Payer (Ef fective for All Dates) Name:Mesfin Russ Member ID:Not on file Relation to Subscriber:Not on file Name:MESFIN RUSS Subscriber ID:Not on file (Home) Address: [address] [place] [id number] Payer ID:Not on file Group ID:Not on file Type:Self Pay Address: [place], [place] A[employer]NA MEDICARE ADV SELF PAY NO INSURANCE Member Subscriber Plan / Payer (Ef fective for All Dates) Name:RussMesfin Member ID:Not on file Relation to Subscriber:Not on file Name:MESFIN RUSS Subscriber ID:Not on file (Home) Address: [place] [address] Payer ID:Not on file Group ID:Not on file Type:Self Pay Address: [place], [place] * Guarantor: MARIA D RUSS Account Type Relation to Patient Date of Phone Billing Address Personal/Family Spouse Care Teams Baby Formula Worker Relationship Specialty Start Date End Date Odin Alex MD [address] [place] [address] [address] [place] [address] PCP - General Internal Medicine 04/12/19 [place] [address] [facility] [address] [place] [address] [facility] 01/[facility]/25 Mckenzie Gilliam MD [address] [facility] [address] [facility] [address] [place] [phone] Pulmonary Disease 07/21/25
--- OUTSIDE RECORDS SUMMARY | 2025-10-26 00:45 | XMS_ITS | Clinical Summary ---
Author Organization [facility] Address [address] [place] [address] Care Team Providers Care High Density Talc Coater Operator Name Role Phone Odin Alex MD Primary Care Provider Gene De La Garza MD Unavailable [phone] Allergies No known active allergies Medications [...] monitoring. Assessment & Plan (12/24/2017 4:09 PM ALLOPATHIC DOCTOR): 12-lead ECG today does not demonstrate any [...] Eliquis 5 mg twice daily.He has a GYQ8NL0-IOWn score of 2, therefore it is recommended that he remain anticoagulated for thromboprophylaxis. Assessment & Plan (12/24/2017 4:10 PM ALLOPATHIC DOCTOR): The patient has a HOO7UO4-DYRd score of 2 (annualized risk of stroke 2.2 %). I have therefore recommended that he remain anticoagulated for thromboprophylaxis. The patient will follow-up with me in 3-4 months for an office visit and twelve- lead ECG. Assessment & Plan (09/29/2017 2:05 PM CDT): The patient has a EBP5YX5-GNGp score of 2 (annualized risk of stroke 2.2 %). I have therefore recommended that he remain anticoagulated for thromboprophylaxis. He will follow-up with me 1 month after cardioversion. Assessment & Plan (07/27/2017 2:59 PM CDT): The patient has a THB2ZM2-XKOa score of 2 (annualized risk of stroke 2%). I have therefore recommended that he remain anticoagulated for thromboprophylaxis. The patient will follow up with me in 6 months, unless he has recurrence. Assessment & Plan (06/28/2017 2:51 PM CDT): The patient has a EDY2EI2-PKFq score of 2 (annualized risk of stroke [...] EKG. Assessment & Plan (12/24/2017 4:09 PM ALLOPATHIC DOCTOR): The patient is status post ablation for [...] on file Legal Sex Male 10:59 AM ALLOPATHIC DOCTOR Gender Identity Male 12/28/2021 10:54 PM ALLOPATHIC DOCTOR Sexual Orientation Straight 12/28/2021 10 :54 PM ALLOPATHIC DOCTOR Last Filed Vital Signs Vital Sign Reading Time Taken Comments Blood Pressure 149/82 11/26/2024 12:09 PM ALLOPATHIC DOCTOR Pulse 75 11/26/2024 12:09 PM ALLOPATHIC DOCTOR Temperature 36.7 C (98 F) 11/26/2024 12:09 PM ALLOPATHIC DOCTOR Respiratory Rate 20 11/26/2024 12:09 PM ALLOPATHIC DOCTOR Oxygen Saturation 97% 11/26/2024 12:09 PM ALLOPATHIC DOCTOR Inhaled Oxygen Concentration - - Weight 115.7 kg (255 lb) 11/25/2024 12:14 PM ALLOPATHIC DOCTOR Height 182.9 cm (6') 11/25/2024 12:14 PM ALLOPATHIC DOCTOR Body Mass Index 34.58 11/25/2024 12:14 PM ALLOPATHIC DOCTOR Plan of Treatment Health Maintenance Due Date [...] home safety. Medical Devices Implanted Type Area Call Or Contact Centre Manager Device Identifier Shelf Expiration Date Model / Serial / Lot M2TECH Stent Coronary Drug Eluting Rapid Exchange Synergy Xd 3.20p21za [place] [employer] [id number] - [id number] Implanted:Qty: 1 on 11/25/2024 by Gene De La Garza MD at [facility] M2TECH 05/05/2026 [id number] / / [id number] Procedures Procedure Name Priority Date/Time Associated Diagnosis Comments CTA ABDOMEN PELVIS W WO CONTRAST Schedule Routine, Read Routine (OP Routine) 10/06/2023 1:35 PM ALLOPATHIC DOCTOR Dissection of aorta, unspecified portion of aorta (HCC) from Last 3 Months or Most Recently Relevant to Health Maintenance Results * CTA Abdomen Pelvis (10/06/2023 1:35 PM ALLOPATHIC DOCTOR) Anatomical Region Laterality Modality Body N/A Computed Tomogra phy 10/06/2023 2:15 PM ALLOPATHIC DOCTOR Impressions 10/07/2023 1:05 PM ALLOPATHIC DOCTOR IMPRESSION: 1. Stable small infrarenal penetrating atherosclerotic ulcers. No abdominal aortic aneurysm or evidence of instability. 2. Morphologic features of hepatic fibrosis. Dictated by: Melonie Rodriguez M.D. The radiology attending physician has personally reviewed this study, and had reviewed and/or edited this written report and agrees with it. Electronically signed by: Cuauhtemoc Otero M.D. Narrative 10/07/2023 1:05 PM ALLOPATHIC DOCTOR EXAMINATION: CT ANGIOGRAPHY OF THE ABDOMEN AND [...] Advance Directives For more information, please contact: [phone] * Full Code (Latest Code Status on File) Date Activated Date Inactivated Comments 11/25/2024 11:59 AM 11/26/2024 5:49 PM Care Teams High Density Talc Coater Operator Relationship Specialty Start Date End Date Odin Alex MD PCP - General 02/28/17 Gene De La Garza MD [address] [place] [address] Consulting Physician Cardiology 11/26/24
--- OUTSIDE RECORDS SUMMARY | 2025-10-26 00:45 | XMS_ITS | Patient Health Record ---
Author Organization [facility] Address [address] [place], [place] [address] Care Team Providers Care Supervisor Newspaper Deliveries Name Role Phone DANNY SALAZAR Unavailable [phone] Odin Alex Unavailable Unavailable Allergies No Known [...] Medicationterbinafine 250 MG Oral Tablet *Reorder from Public Mobile for eRx and Interaction Alerts* 04/12/2021 Active [...] Hour Oral; Duration: 90 Days Active Ipratropium [place] 0.06 % Solution Nasal; Duration: 14 Days [...] [facility] [address] [place] [phone] 07/07/2025 DANNY SALAZAR 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 ; Pain in right foot M79.671 ; Atherosclerosis of [place] arteries of extremities with intermittent claudication, bilateral legs I70.213 and Onychomycosis B35.1 [facility] [address] [place] [phone] 09/08/2025 DANNY SALAZAR 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 ; Pain in right foot M79.671 ; Onychomycosis B35.1 ; Atherosclerosis of [place] arteries of extremities with intermittent claudication, bilateral legs I70.213 ; Neuroma D36.10 and 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 [facility] [address] [place] [phone] 02/10/2025 DANNY SALAZAR 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 ; Pain in right foot M79.671 ; Atherosclerosis of [place] arteries of extremities with intermittent claudication, bilateral legs I70.213 and Onychomycosis B35.1 [facility] [address] [place] [phone] 02/24/2025 DANNY SALAZAR 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 07/07/2025 Pain in right foot (ICD-10 - M79.671) 05/05/2025 Pain in right foot (ICD-10 - M79.671) 02/10/2025 Atherosclerosis of [place] arteries of extremities with intermittent claudication, bilateral [...] should start to worsen. 02/24/2025 Atherosclerosis of [place] arteries of extremities with intermittent claudication, bilateral legs (ICD-10 - I70.213) 05/05/2025 Atherosclerosis of [place] arteries of extremities with intermittent claudication, bilateral legs (ICD-10 - I70.213) 07/07/2025 Atherosclerosis of [place] arteries of extremities with intermittent claudication, bilateral legs (ICD-10 - I70.213) 09/08/2025 Atherosclerosis of [place] arteries of extremities with intermittent claudication, bilateral legs (ICD-10 - I70.213) 07/07/2025 Onychomycosis (ICD-10 - B35.1) All corns or calluses, as described in the note above, were cut and pared utilizing a #15 blade. 05/05/2025 Onychomycosis (ICD-10 - B35.1) All corns or calluses, as described in the note above, were cut and pared utilizing a #15 blade. 09/08/2025 Neuroma (ICD-10 - D36.10) Following skin prep, a total of 3 ccs of a 1-1-1 mix of 0.5% marcaine plain, Kenalog, and dexamethasone sodium phosphate was injected into the patients bilateral second interspace 02/24/2025 Onychomycosis (ICD-10 - B35.1) All corns or calluses, as described in the note above, were cut and pared utilizing a #15 blade. 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
--- OUTSIDE RECORDS SUMMARY | 2025-10-26 00:45 | XMS_ITS | Continuity of Care Document ---
Author Organization [place] - [facility], [facility] Internal Med [facility] [address] [facility] [address] [place] [address] Assessment No assessment recorded. Plan of Treatment Reminders Order Date Submit Date Provider Last Modified By Organization Details Last Modified Time Details Appointments None recorde d. Lab HbA1c (hemogl obin A1c), blood 025 09/27/20 25 [email or web address] [facility], [address] [place] [address], [address], 18:26:26 microal bumin, urine 025 09/27/20 25 [email or web address] [facility], [address] [place] [address], [address], 5 18:26:26 lipid panel, serum 025 09/27/20 25 [facility], [address] [place] [address], [address], 5 18:26:26 CBC w/ auto diff 025 09/27/20 25 [email or web address] [facility], [address] [place] [address], [id number], 5 18:26:27 Referral None recorde d. Procedures None recorde d. Surgeries None recorde d. Imaging None recorde d. Medication Orders None recorde d. Patient TargetsNo targets recorded. Patient Instructions Encounter Date Encounter Id Patient Instructions Last Modified By Organization Details Last Modified Time 09/27/2025 [id number] Medicare wellnes s evaluation risk assessment stable. [...] Created: Odin Alex M.D. 09.27.2025 11:49 AM Not available 09/27/2025 12:49:35 Reason for Referral None Reported. Results Created Date Observation Date Name Description Value Unit Range Abnormal Flag Note LastModifiedBy Organization Detail LastModifiedTime 08/31/2007/28/2025 US, renal No observ ation record ed. [address], [address], 08/31/2025 14:23:04 10/07/2009/22/2025 arianna r monit or No observ ation record ed. [email or web address] Not Available 2024 16:11:39 10/10/2010/06/2025 elect romyo gram + nerve condu ction study No observ ation record ed. [address], [place], [address], 10/10/2025 14:01:25 10/24/20 25 09/19/2025 PFT, compl ete No observ ation record ed. [place] [id number] [facility] [address], [place], [address], 10/24/2025 06:53:48 10/24/20 25 09/19/2025 imagi ng/di agnos tic resul t No observ ation record ed. [address] [facility] [address], [place], [address], 10/24/2025 06:54:25 Result Notes None recorded. Problems Name Problem SNOMED Code Status Onset Date Resolution Date Notes Provider Name and Address Organization Details Recorded Time Rectal hemorrhag e 98818685 Active Not Available [facility] 3 09:17:33 Hyperchol esterolem ia 37134362 Active Not Available [facility] 3 09:17:33 Gastroeso phageal reflux disease 301746571 Active Not Available [facility] 3 09:17:34 Left inguinal hernia 438143858 Active Not Available [facility] 3 09:17:34 Hypoglyce joesph 289662473 Active Not Available [facility] 3 09:17:34 Prostate specific antigen above reference range 533771257 Active Not Available [facility] 3 09:17:34 Osteoarth ritis 437036790 Active Not Available [facility] 3 09:17:34 Atrial fibrillat ion 02797929 Active Not Available [facility] 3 09:17:35 Acute bronchiti s 85261047 Active 2018 Not Available [facility] 3 09:17:33 Anxiety 20110008 Active 2019 Not Available [facility] 3 09:17:35 Chronic obstructi ve pulmonary disease 78759217 Active 2020 Not Available [facility] 3 09:17:33 Hyperlipi demia 52228624 Completed 202011/27/2021 Not Available [facility] 3 09:17:35 Obstructi ve sleep apnea syndrome 80475826 Active 2020 Not Available [facility] 3 09:17:35 Spinal stenosis of lumbar region 77604238 Active 2020 Not Available [facility] 3 09:17:34 Disorder of prostate 68833946 Active 2021 Not Available [facility] 3 09:17:34 Effects of high altitude 02702211 Active 2021 Not Available [facility] 3 09:17:36 COVID-19 532106483 Active 2021 Not Available [facility] 3 09:17:35 Obesity 195937628 Active 2021 Not Available [facility] 3 09:17:35 Chronic renal failure 09413835 Active 2022 DEBBIE Rolle, [place] [facility] [place] [facility] 3 11:31:19 Leukocyto sis 341212495 Active 2022 Aracelis Martinez CMA null, [place] [facility] [place] [facility] 3 11:33:34 Diarrhea 51326506 Active 2022 Odin Alex MD [address], [place], [address] , [facility] 3 16:29:58 Serum creatinin e above reference range 343316155 Active 2022 Odin Alex MD [address], [address], [place], [address] , [facility] 3 10:51:32 Low back pain 818284692 Active 2022 Aracelis Martinez CMA null, [place] [facility] 3 15:20:53 Celluliti s of toe of right foot 75708297922 604129 Active 2022 Odin Alex MD [address], [address], [place], [address] , [facility] [place] [facility] 3 14:48:55 Chronic low back pain 512774543 Active 2022 Mitzi stephens, [place] - [facility] [place] [facility] 3 15:33:51 Hyperglyc emia 33586236 Active 2023 Aracelis Martinez CMA null, [place] [facility] [place] [facility] 5 10:54:22 Headache 10534932 Active 2023 Odin Alex MD [address], [address], [place], [address] , [place] [facility] [place] [facility] 4 14:19:35 Liver enzymes level above reference range 446183745 Active 2023 Aracelis Martinez CMA null, [place] [facility] [place] [facility] 4 11:44:45 Depressiv e disorder 71035970 Active 2023 Odin Alex MD [address], [address], [place], [address] , [place] [facility] 4 12:14:38 Abnormal liver function 90314079 Active 2023 Mtizi stephens, [place] [facility] [place] [facility] 4 11:58:35 Hearing loss 12942642 Active 2023 Mitzi stephens, [place] [facility] [place] [facility] 4 12:56:05 Chronic cough 29001633 Active 2024 Aracelis Martinez CMA null, [place] [facility] [place] [facility] 5 14:19:12 Coronary arteriosc lerosis 64314259 Active 2024 Odin Alex MD [address], [address], [place], [address] , [facility] [place] [facility] 5 12:33:22 Dyspnea 379159104 Active 2024 Aracelis Martinez CMA null, [place] [facility] [place] [facility] 5 12:02:46 Essential hypertens ion 83333228 Active 2024 Odin Alex MD [address], [place], [address] , [place] [facility] 5 14:34:33 Severe chronic obstructi ve pulmonary disease 792370993 Active 2024 Katty Mcclain null, [facility] 5 14:28:59 Morbid obesity 361844370 Active 2024 Katty Thomasандрейlora null, [facility] 5 16:53:03 Type 2 diabetes mellitus controlle d by diet 68509143556 9101 Active 2024 Odin Alex MD [address] [place] [address], [facility] [address], [place], [address] , [facility] 5 09:15:04 Chronic kidney disease 514094962 Active 2024 Aracelis Martinez CMA null, [facility] 5 16:50:31 Diabetes mellitus 72460472 Active 2024 Katty Mcclain null, [facility] 5 10:12:05 Type 2 diabetes mellitus 73082800 Active 2024 Aracelis Martinez CMA null, [facility] 5 11:13:30 Newly diagnosed diabetes 594992005 Active 2024 Aracelis Martinez CMA null, [facility] 5 11:32:02 Problem Notes None recorded. Procedures Surgical History Date Name Laterality Status Provider Name and Address Organization Details Recorded Time 4 Medicare Wellness CPT Code, subsequent completed Caryn Macias RN [facility] 09/09/2024 12:20:33 3 Medicare Wellness CPT Code, subsequent completed Caryn Macias RN [facility] 08/26/2023 14:50:18 3 Advanced Care Planning completed Caryn Macias RN [facility] 08/26/2023 14:52:44 Imaging Results None recorded. Procedure [...] No t Available metformin 500 mg tablet Take 1 tablet [...] weight Heart rate Body temperature Oxygen saturation Systolic And Diastolic Provider Name and Address Organization Details Last Updated DateTime 5 177.8 cm 34.4 kg/m2 928874. 17 g 63 /min 97.2 [degF] 95 % 128/62 mm[Hg] Katty ARIZMENDI - [place] [employer] 5 12:28:17 Social History Question Answer Notes LastModified by Organization Details LastModified Time Tobacco Smoking Status Former Smoker Not Available [facility] 01/29/2023 09:12:54 Do You Have An Advance Directive? No Info Given Previously [email or web address] Information not available 09/09/2024 Are You Blind Or Do You Have Difficulty Seeing? No MIGRATION.030 [id number] Information not available 01/29/2023 In The 14 Days Before Symptom Onset, Have You Had Close Contact With A Laboratory-conf irmed COVID-19 While That Case Was Ill? No MIGRATION.030 [id number] Information not available 01/29/2023 In The 14 Days Before Symptom Onset, Have You Had Close Contact With A Person Who Is Under Investigation For COVID-19 While That Person Was Ill? No MIGRATION.0301 [id number] Information not available 01/29/2023 Are You Deaf Or Do You Have Serious Difficulty Hearing? Yes [email or web address] Information not available 08/26/2023 What Type Of Diet Are You Following? REGULAR MIGRATION.030 642645 Information not available 01/29/2023 Have There Been Any Changes To Your Family Or Social Situation? No [email or web address] Information not available 08/26/2023 What Is The Fluoride Status Of Your Home? Fluoridated MIGRATION.030 375927 Information not available 01/29/2023 When Did You Quit Smoking? 16+yearssincelast cigarette MIGRATION.030 376270 Information not available 01/29/2023 Are There Any Guns Present In Your Home? Yes MIGRATION.030 209643 Information not available 01/29/2023 Do You Use Insect Repellent Routinely? No [email or web address] Information not available 08/26/2023 Where Do You Live? [facility] [email or web address] Information not available 08/26/2023 Guns Present In The Home? Yes [email or web address] Information not available 08/26/2023 Are You Able To Care For Yourself? Yes [email or web address] Information not available 08/26/2023 Are You Blind Or Do Yo Have Difficulty Seeing? No [email or web address] Information not available 08/26/2023 Are You Deaf Or Do You Have Serious Difficulty Hearing? Yes Has Hearing Aids [email or web address] Information not available 08/26/2023 Live Alone Of With Others? With Others [email or web address] Information not available 08/26/2023 Do You Have A Medical Power Of Drone Software Development Engineer? No [email or web address] Information not available 08/26/2023 What Was The Date Of Your Most Recent Tobacco Screening? 09/09/2024 [email or web address] Information not available 09/09/2024 Do You Have Any Pets? No [email or web address] Information not available 08/26/2023 What Is Your Relationship Status? [email or web address] Information not available 08/26/2023 Do You Use Your Seat Belt Or Car Seat Routinely? Yes MIGRATION.0301 [id number] Information not available 01/29/2023 Do You Have Smoke And Carbon Monoxide Detectors In Your Home? Yes MIGRATION.0301 655104 Information not available 01/29/2023 At What Age Did You Start Smoking Tobacco? 22 Quit In 2000 MIGRATION.0301 [id number] Information not available 01/29/2023 Are You Passively Exposed To Smoke? No [email or web address] Information not available 08/26/2023 Are There Any Smokers In Your House? No [email or web address] Information not available 08/26/2023 How Much Tobacco Do You Smoke? 1 PPD MIGRATION.0301 527236 Information not available 01/29/2023 Do You Use Sunscreen Routinely? Yes MIGRATION.0301 059943 Information not available 01/29/2023 Have You Recently Traveled Abroad? No MIGRATION.0301 696290 Information not available 01/29/2023 Do You Have Difficulty Walking Or Climbing Stairs? Yes Uses A Cane [email or web address] Information not available 09/09/2024 Sex: Unknown Functional Status Question Answer Note LastModified by Organizat ion Details LastModified Time What is your level of alcohol consumption? None [email or web address] Information not available 09/09/2024 Do you or have you ever used smokeless tobacco? Never used smokeless tobacco MIGRATION.82331 39966 Information not available 01/29/2023 Do you have transportation difficulties? No MIGRATION.65810 59707 Information not available 01/29/2023 Are you able to walk independently without assistance or assistive devices? YESASSIST uses a cane [email or web address] Information not available 08/26/2023 Do you have difficulty doing errands alone? No MIGRATION.65284 50910 Information not available 01/29/2023 Are you able to care for yourself independently? Yes MIGRATION.34007 09024 Information not available 01/29/2023 Do you have difficulty dressing, bathing, grooming, or toileting? No MIGRATION.16657 77368 Information not available 01/29/2023 Do you or have you ever used e-cigarettes or vape? Never used electronic cigarettes MIGRATION.93232 34181 Information not available 01/29/2023 What is your exercise level? Occasional MIGRATION.85268 98428 Information not available 01/29/2023 Mental Status Question Answer Note LastModified by Organizat ion Details LastModified Time Do you have difficulty concentrating, remembering or making decisions? No MIGRATION.700257412 6 Information not available 01/29/2023 Family History [...] HAVE YOU BEEN HOSPITALIZED OR SEEN IN [facility] IN THE PAST YEAR ? N [...] pneumococcal polysaccharide PPV23 1 completed UGO No - [place] [employer] 08/26/2023 14:38:26 COVID-19, mRNA, LNP-S, bivalent, PF, 30 mcg/0.3 mL dose 2 completed Not Available [facility] 09/27/2025 11:46:44 Pneumococcal conjugate PCV20, polysaccharide IOH717 conjugate, adjuvant, PF 3 completed Not Available [facility] 09/27/2025 11:46:44 Tdap 5 completed Not Available [facility] 09/27/2025 11:46:44 COVID-19, mRNA, LNP-S, PF, 10 mcg/0.2 mL 5 completed Not Available [facility] 09/27/2025 11:46:44 RSV, recombinant, protein subunit RSVpreF, adjuvant reconstituted, 0.5 mL, PF 5 completed Not Available [facility] 09/27/2025 11:46:44 Influenza, high-dose, trivalent, PF 5 completed Not Available [facility] 09/27/2025 11:46:44 zoster recombinant 5 completed Not Available [facility] 09/27/2025 11:46:44 Influenza, high-dose, quadrivalent, PF 3 completed UGO No [facility] 08/26/2023 16:00:55 Influenza, split virus, trivalent, preservative 4 completed Not Available [facility] 01/29/2023 09:21:35 Influenza, split virus, trivalent, preservative 3 completed Not Available [facility] 01/29/2023 09:21:35 influenza, unspecified formulation 2 completed Not Available [facility] 01/29/2023 09:21:35 COVID-19, mRNA, LNP-S, PF, 30 mcg/0.3 mL dose 2 completed Not Available [facility] 01/29/2023 09:21:35 Influenza, split virus, quadrivalent, preservative 1 completed Not Available [facility] 01/29/2023 09:21:35 COVID-19, mRNA, LNP-S, PF, 30 mcg/0.3 mL dose 1 completed Not Available [facility] 01/29/2023 09:21:36 SARS-COV-2 (COVID-19) vaccine, UNSPECIFIED 1 completed Not Available [facility] 01/29/2023 09:21:36 SARS-COV-2 (COVID-19) vaccine, UNSPECIFIED 1 completed Not Available [facility] 01/29/2023 09:21:36 Influenza, high-dose, quadrivalent, PF 0 completed Not Available [facility] 01/29/2023 09:21:36 Influenza, high-dose, trivalent, PF 0 completed Not Available [facility] 01/29/2023 09:21:36 Influenza, high-dose, trivalent, PF 8 completed Not Available [facility] 01/29/2023 09:21:37 Influenza, high-dose, trivalent, PF 7 completed Not Available [facility] 01/29/2023 09:21:37 Influenza, split virus, quadrivalent, PF 6 completed Not Available [facility] 01/29/2023 09:21:37 Influenza, split virus, quadrivalent, preservative 5 completed Not Available [facility] 01/29/2023 09:21:37 Pneumococcal conjugate PCV 13 5 completed Not Available [facility] 01/29/2023 09:21:37 Influenza, high-dose, trivalent, PF 4 completed Odin Alex MD [address] [facility] [address], [facility] [address], [place], [address], [facility] 09/09/2024 12:50:45 Past Encounters Encounter ID Performer Location Encounter Start Date Encounter Closed Date Diagnosis/Indication Diagnosis SNOMED-CT Code Diagnosis ICD10 Code Diagnosis IMO Codes Diagnosis Note [id number] Odin Alex MD [facility] Internal Med [address] [facility] [address] [place] [address] 09/27/2025 11:45:45 09/27/2025 12:52:51 General examination of patient 015042483 Z00.00 7602080 Coronary arteriosclerosis 83633207 I25.10 Essential hypertension 64461329 I10 Atrial fibrillation 4943 6004 I48.91 Hypercholesterolemia 136 12227 E78.00 Type 2 raiza betes mellitus controlled by diet 4633717059 01517 E11.9 8460410 Chronic ob structive pulmonary disease 54960841 J44.9 Chronic low back pain 27 8701244 M54.50 Obesity 465314688 E66.9 Health Concerns Section Related Observation LastModified by Organization Detai ls LastModified Time None Recorded Concern Status LastModified by Organization Details LastModified Time None Recorded Payers Encounter Date Sequence Insurance Name Policy Number Policy Richards Covered Member ID Richards Member ID Guarantor Name 09/27/2025 1 [employer] (MEDICARE REPLACEMENT/ ADVANTAGE - PPO) [id number] Billy Russ [id number] Billy Russ Notes Date Note Type Note Provider Name and Address Organization Details Recorded Time text/html Patient Name: Billy RussDate Of Service: Friday ( 09.27.2025 ): 1945 [...] Systemic Symptoms:none Medication Reconciliation: from medication list. [id number]: Ultrasound the abdominal aorta demonstrates no evidence [...] Succinate Er. Rate control: controlled ventricular response [id number] Criteria: hypertension, Age > 75 and Diabetes [...] or has seen in the past a Leather Etcher: 0 .Pain - Enjoyment of Life - [...] offered to be evaluated and instructed by garbage pick up man on weight loss diet.Controlled substance database yes [...] offered to be evaluated and instructed by garbage pick up man on weight loss diet. Wellness Evaluation PHQ-2 [...] PrnAlbuterol Sulfate Hfa 90 UG AEROSOL, METERED E3jIvzdbtcso 25 MG-320 MG (TABLET - ORAL) DailyMetoprolol [...] the Office. Else referred to pharmacies. Surgical Irxdsbh4930-57 LAD Tvpqx5865-92 Distal Phalanx Amputation Rt. 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 Else referred to pharmacies. Surgical Vmsrkcl7329-46 LAD Qjqms8105-14 Distal Phalanx Amputation Rt. Second Nns0424-84 Left Xueqfinr0903-20 Right Opzildsa4527-38 Right Inguinal Xlzods3309-60 Pilonidal Cyst times 2 Preventative Testing: (X) Due (?) Optional( ) 07/28/2025 HAIC 6.0( ) 05/31/2025 Albumin 4.3 G/DL( ) 05/31/2025 PSA 2.3 NG/ML 05/31/2026( ) 11/10/2024 Optometry( ) 03/05/2024 CT Thorax(X) 05/08/2015 Colonoscopy (10 Years) 05/08/2025Preventative Testing Discussed with Patient and Attendants Social HistorySmoke one pack daily for approximately 20 years and quit in 2000Drinks sociallyRetired computer systems administrator Family HistoryMother 69 from ITP and complications following the splenectomyFather 83 from Cancer of the LungTwo brothers both frin DM, ASHD, and Atrial Fibrillation and renal complicationsThree sisters all living each has DM and HTN Odin Alex MD [address] [place] [address], [place], [address], [facility] 09/27/2025 12:50:04
--- OUTSIDE RECORDS SUMMARY | 2025-10-26 00:46 | XMS_ITS | Data Portability ---
Author Organization [place] [employer], Main Office Address [address] [place] [address] Assessment No assessment recorded. Plan of Treatment Reminders Order Date Submit Date Provider Last Modified By Organization Details Last Modified Time Details Appointments None recorded . Lab HbA1c (hemoglo bin A1c), blood 025 09/27/20 25 [email or web address] [facility], [address] [place] [address], [address], 5 18:26:26 microalb umin, urine 025 09/27/20 25 [email or web address] [facility], [address] [place] [address], [address], 5 18:26:26 lipid panel, serum 025 09/27/20 25 [email or web address] [facility], [address] [place] [address], [address], 5 18:26:26 CBC w/ auto diff 025 09/27/20 25 [email or web address] [facility], [address] [place] [address], [address], 5 18:26:27 CBC w/ auto diff 025 05/24/20 25 [email or web address] [facility] (Lab), [address] [place], [address], 5 10:19:08 T4, free, serum 025 05/24/20 25 [email or web address] [facility] (Lab), [address] [place], [address], 5 10:19:08 TSH, serum or plasma 025 05/24/20 25 [email or web address] [facility] (Lab), [address] [place], [address], 5 10:19:08 lipid panel, serum 025 05/24/20 25 [email or web address] [facility] (Lab), [address] [place], [address], 5 10:19:07 CMP, serum or plasma 025 05/24/20 25 [email or web address] [facility] (Lab), [address] [place], [address], 5 10:19:08 lipid panel, serum 09/09/20 [email or web address] Not available 4 16:56:55 CMP, serum or plasma 09/09/20 [email or web address] Not available 4 16:56:55 HbA1c (hemoglo bin A1c), blood 09/09/20 [email or web address] Not available 4 16:56:55 TSH, serum or plasma 09/09/20 [email or web address] Not available 4 16:56:55 T4, free, serum 09/09/20 [email or web address] Not available 4 16:56:55 CBC w/ auto diff 09/09/20 [email or web address] Not available 4 16:56:54 Referral None recorded . Procedures None recorded . Surgeries None recorded . Imaging None recorded . Medication Orders None recorded . Patient TargetsNo targets recorded. Patient Instructions Encounter Date Encounter Id Patient Instructions Last Modified By Organization Details Last Modified Time 09/09/2024 [id number] dementia rating scale-2* [email or web address] Not available 09/09/2024 12:50:44 alcohol misuse* [email or web address] Not available 09/09/2024 12:50:44 depression screening* [email or web address] Not available 09/09/2024 12:50:44 Timed Up and Go test (TUG)* [email or web address] Not available 09/09/2024 12:50:44 multi-dimensiona l health assessment questionnaire* [email or web address] Not available 09/09/2024 12:50:44 Personalized a lt [...] Negative Active diagnosis, Continue current treatment plan [email or web address] Not available 09/09/2024 12:28:01 Medicare wellnes s [...] have occurred. Not available 09/09/2024 12:51:23 01/11/2025 [id number] Coronary artery disease, paroxysmal atrial fibrillation, hypertension [...] Created: Odin Alex M.D. 01.11.2025 11:39 AM [email or web address] Not available 01/11/2025 12:39:30 02/10/2025 [id number] In primarily because of a fall several days ago. Apparently tripped over some equipment at [employer]. End up hitting the back side of [...] Created: Odin Alex M.D. 02.10.2025 01:43 PM [email or web address] Not available 02/10/2025 14:43:10 05/24/2025 [id number] Follow-up for coronary artery disease, essential hypertension, [...] Created: Odin Alex M.D. 05.24.2025 11:42 AM [email or web address] Not available 05/24/2025 12:42:06 09/27/2025 [id number] [facility] risk assessment stable. Follow-up for [...] Created: Odin Alex M.D. 09.27.2025 11:49 AM [place] [id number] Not available 09/27/2025 12:49:35 Reason for Referral None Reported. Results Created Date Observation Date Name Description Value Unit Range Abnormal Flag Note LastModifiedBy Organization Detail LastModifiedTime 11/30/20 24 11/30/2024 US, abdom en No observ ation record ed. [address] [facility] [address], [place], [address], 11/30/2024 16:41:01 02/07/20 25 02/06/2025 CT, cervi bernard spine , w/o contr ast No observ ation record ed. [address], [address], 02/07/2025 06:44:55 02/07/20 25 02/06/2025 CT, brain , w/o contr ast No observ ation record ed. [place] [address], [place], [address], 02/07/2025 06:45:41 02/07/20 25 02/06/2025 CT, chest + abdom en + pelvi s, w/o contr ast No observ ation record ed. [address], [place], [address], 02/07/2025 06:46:13 02/07/20 25 02/06/2025 XR, elbow , 2 view No observ ation record ed. [address], [place], [address], 02/07/2025 06:50:44 06/20/20 25 06/20/2025 katy lynne ow study No observ ation record ed. [address], [place], [address], 06/20/2025 17:40:22 07/28/20 25 07/28/2025 US, renal No observ ation record ed. [address], [place], [address], 07/28/2025 18:16:17 08/31/2007/28/2025 US, renal No observ ation record ed. [address], [place], [address], 08/31/2025 14:23:04 10/07/2009/22/2025 arianna r monit or No observ ation record ed. [place] [id number] Not Available 2024 16:11:39 10/10/2010/06/2025 elect romyo gram + nerve condu ction study No observ ation record ed. [address], [place], [address], 10/10/2025 14:01:25 10/24/20 25 09/19/2025 PFT, compl ete No observ ation record ed. [address], [place], [address], 10/24/2025 06:53:48 10/24/2009/19/2025 imagi ng/di agnos tic resul t No observ ation record ed. [address], [place], [address], 10/24/2025 06:54:25 Result Notes None recorded. Problems Name Problem SNOMED Code Status Onset Date Resolution Date Notes Provider Name and Address Organization Details Recorded Time Rectal hemorrhag e 84313234 Active Not Available [employer] 3 09:17:33 Hyperchol esterolem ia 84054505 Active Not Available [employer] 3 09:17:33 Gastroeso phageal reflux disease 250335056 Active Not Available [facility] 3 09:17:34 Left inguinal hernia 703775840 Active Not Available [facility] 3 09:17:34 Hypoglyce joesph 695104797 Active Not Available [facility] 3 09:17:34 Prostate specific antigen above reference range 339697673 Active Not Available [facility] 3 09:17:34 Osteoarth ritis 067646436 Active Not Available [facility] 3 09:17:34 Atrial fibrillat ion 41153251 Active Not Available [facility] 3 09:17:35 Acute bronchiti s 56432695 Active 2018 Not Available [facility] 3 09:17:33 Anxiety 46263817 Active 2019 Not Available [facility] 3 09:17:35 Chronic obstructi ve pulmonary disease 60834752 Active 2020 Not Available [facility] 3 09:17:33 Hyperlipi demia 68821449 Completed 202011/27/2021 Not Available [facility] 3 09:17:35 Obstructi ve sleep apnea syndrome 61616743 Active 2020 Not Available [facility] 3 09:17:35 Spinal stenosis of lumbar region 93520527 Active 2020 Not Available [facility] 3 09:17:34 Disorder of prostate 82507370 Active 2021 Not Available [facility] 3 09:17:34 Effects of high altitude 14712224 Active 2021 Not Available [facility] 3 09:17:36 COVID-19 591189415 Active 2021 Not Available [facility] 3 09:17:35 Obesity 022584375 Active 2021 Not Available [facility] 3 09:17:35 Chronic renal failure 36025894 Active 2022 Aracelis Martinez CMA null, [place] [facility] [place] [facility] 3 11:31:19 Leukocyto sis 492716560 Active 2022 DEBBIE Rolle, [place] [facility] [place] [facility] 3 11:33:34 Diarrhea 15128432 Active 2022 Odin Alex MD [address], [place], [address] , [place] [facility] [place] [facility] 3 16:29:58 Serum creatinin e above reference range 767890130 Active 2022 Odin Alex MD [address], [address], [place], [address] , [place] [facility] [place] [facility] 3 10:51:32 Low back pain 897496013 Active 2022 DEBBIE Rolle, [place] [facility] [place] [facility] 3 15:20:53 Celluliti s of toe of right foot 47829629959 284134 Active 2022 Odin Alex MD [address], [address], [place], [address] , [place] [facility] [place] [facility] 3 14:48:55 Chronic low back pain 383024801 Active 2022 Mitzi stephens, [place] [facility] [place] [facility] 3 15:33:51 Hyperglyc emia 35605283 Active 2023 DEBBIE Rolle[place] [facility] [place] [facility] 5 10:54:22 Headache 56413883 Active 2023 Odin Alex MD [address], [place], [address] , [place] [facility] [place] [facility] 4 14:19:35 Liver enzymes level above reference range 376759352 Active 2023 Aracelis Martinez CMA null, [place] [facility] [place] [facility] 4 11:44:45 Depressiv e disorder 40975347 Active 2023 Odin Alex MD [address], [place], [address] , [place] [facility] [place] [facility] 4 12:14:38 Abnormal liver function 30374869 Active 2023 Mitzi Torresson null, [place] [facility] 4 11:58:35 Hearing loss 51707869 Active 2023 Mitzi Jerel null, [place] [facility] [place] [facility] 4 12:56:05 Chronic cough 33406497 Active 2024 Aracelis Martinez CMA null, [place] [facility] 5 14:19:12 Coronary arteriosc lerosis 34247959 Active 2024 Odin Alex MD [address], [place], [address] , [facility] [place] [facility] 5 12:33:22 Dyspnea 871278104 Active 2024 Aracelis Martinez CMA null, [place] [facility] [place] [facility] 5 12:02:46 Essential hypertens ion 48434133 Active 2024 Odin Alex MD [address], [place], [address] , [facility] 5 14:34:33 Severe chronic obstructi ve pulmonary disease 867182468 Active 2024 Katty stephens, [place] [facility] [place] [facility] 5 14:28:59 Morbid obesity 143766557 Active 2024 Katty stephens, [place] [facility] 5 16:53:03 Type 2 diabetes mellitus controlle d by diet 37313537433 9101 Active 2024 Odin Alex MD [address], [place], [address] , [facility] 5 09:15:04 Chronic kidney disease 104080230 Active 2024 Aracelis Martinez CMA null, [place] [facility] 5 16:50:31 Diabetes mellitus 23125731 Active 2024 Katty stephens, [place] [facility] 5 10:12:05 Type 2 diabetes mellitus 89169209 Active 2024 Aracelis Martinez CMA null, [facility] 5 11:13:30 Newly diagnosed diabetes 099300628 Active 2024 Aracelis Martinez CMA null, [facility] 5 11:32:02 Problem Notes None recorded. Procedures Surgical History Date Name Laterality Status Provider Name and Address Organization Details Recorded Time 4 Medicare Wellness CPT Code, subsequent completed Caryn Macias RN [facility] 09/09/2024 12:20:33 3 Medicare Wellness CPT Code, subsequent completed Caryn Macias RN [facility] 08/26/2023 14:50:18 3 Advanced Care Planning completed Caryn Macias RN [facility] 08/26/2023 14:52:44 Imaging Results None recorded. Procedure [...] Not Available Not Available No t Available [employer] 160 mcg-9mcg- 4.8mcg/ac tuation HFA [...] Updated DateTime 5 177.8 cm 36.2 kg/m2 047930. 28 g 54 /min 97 [degF] 84 % 138/84 mm[Hg] Katty Mcclain [facility] 5 12:18:02 Date Recorded Heart rate Oxygen saturation Body temperature Systolic And Diastolic Provider Name and Address Organization Details Last Updated DateTime 02/10/2025 65 /min 95 % 97 [degF] 118/68 mm[Hg] Katty Mcclain 1[facility] 5 14:23:29 Date Recorded Body height Body mass index (BMI) Body weight Heart rate Body temperature Oxygen saturation Systolic And Diastolic Provider Name and Address Organization Details Last Updated DateTime 5 177.8 cm 36.9 kg/m2 422567. 24 g 68 /min 97 [degF] 95 % 122/74 mm[Hg] [facility] [employer] [facility] 5 12:12:20 Date Recorded Pain severity - 0-10 verbal numeric rating [Score] - Reported Provider Name and Address Organization Details Last Updated DateTime 09/09/2024 0 Caryn Macias RN [facility] [employer] [facility] 09/09/2024 12:20:54 Date Recorded Body height Body mass index (BMI) Body weight Heart rate Body temperature Oxygen saturation Systolic And Diastolic Provider Name and Address Organization Details Last Updated DateTime 4 177.8 cm 35.9 kg/m2 024712. 09 g 67 /min 97 [degF] 96 % 120/86 mm[Hg] VALERIA Dugan [facility] [employer] [facility] 4 12:14:36 Date Recorded Body height Body mass index (BMI) Body weight Heart rate Body temperature Oxygen saturation Systolic And Diastolic Provider Name and Address Organization Details Last Updated DateTime 5 177.8 cm 34.4 kg/m2 268754. 17 g 63 /min 97.2 [degF] 95 % 128/62 mm[Hg] [facility] [employer] [facility] 5 12:28:17 Social History Question Answer Notes LastModified by Organization Details LastModified Time Tobacco Smoking Status Former Smoker Not Available [facility] 01/29/2023 09:12:54 Do You Have An Advance Directive? No Info Given Previously [email or web address] Information not available 09/09/2024 Are You Blind [...] While That Person Was Ill? No MIGRATION.0301 [id number] Information not available 01/29/2023 Are You Deaf Or Do You Have Serious Difficulty Hearing? Yes [email or web address] Information not available 08/26/2023 What Type Of Diet Are You Following? REGULAR MIGRATION.0301 [id number] Information not available 01/29/2023 Have There Been Any Changes To Your Family Or Social Situation? No [email or web address] Information not available 08/26/2023 What Is The Fluoride Status Of Your Home? Fluoridated MIGRATION.0301 [id number] Information not available 01/29/2023 When Did You Quit Smoking? 16+yearssincelast cigarette MIGRATION.0301 [id number] Information not available 01/29/2023 Are There Any Guns Present In Your Home? Yes MIGRATION.0301 [id number] Information not available 01/29/2023 Do You Use Insect Repellent Routinely? No [email or web address] Information not available 08/26/2023 [facility] [email or web address] Information not available 08/26/2023 Guns Present In The Home? Yes [email or web address] Information not available 08/26/2023 Are You Able To Care For Yourself? Yes [email or web address] Information not available 08/26/2023 Are You Blind Or Do Yo Have Difficulty Seeing? No [email or web address] Information not available 08/26/2023 Are You Deaf Or Do You Have Serious Difficulty Hearing? Yes Has Hearing Aids [email or web address] Information not available 08/26/2023 Live Alone Of With Others? With Others [email or web address] Information not available 08/26/2023 Do You Have A Medical Power Of [employer] Furn[employer]? No [email or web address] Information not available 08/26/2023 What Was The Date Of Your Most Recent Tobacco Screening? 09/09/2024 Information not available 09/09/2024 Do You Have Any Pets? No [email or web address] Information not available 08/26/2023 What Is Your Relationship Status? [email or web address] Information not available 08/26/2023 Do You Use Your Seat Belt Or Car Seat Routinely? Yes MIGRATION.0301 [id number] Information not available 01/29/2023 Do You Have Smoke And Carbon Monoxide Detectors In Your Home? Yes MIGRATION.0301 [id number] Information not available 01/29/2023 At What Age Did You Start Smoking Tobacco? 22 Quit In 2000 MIGRATION.0301 [id number] Information not available 01/29/2023 Are You Passively Exposed To Smoke? No [email or web address] Information not available 08/26/2023 Are There Any Smokers In Your House? No [email or web address] Information not available 08/26/2023 How Much Tobacco Do You Smoke? 1 PPD MIGRATION.0301 [id number] Information not available 01/29/2023 Do You Use Sunscreen Routinely? Yes MIGRATION.0301 [id number] Information not available 01/29/2023 Have You Recently Traveled Abroad? No MIGRATION.0301 [id number] Information not available 01/29/2023 Do You Have Difficulty Walking Or Climbing Stairs? Yes Uses A Cane [email or web address] Information not available 09/09/2024 Sex: Unknown Functional Status Question Answer Note LastModified by [employer] Details LastModified Time What is your level of alcohol consumption? None [email or web address] Information not available 09/09/2024 Do you or have you ever used smokeless tobacco? Never used smokeless tobacco MIGRATION.01257 42678 Information not available 01/29/2023 Do you have transportation difficulties? No MIGRATION.06701 30094 Information not available 01/29/2023 Are you able to walk independently without assistance or assistive devices? YESASSIST uses a cane [email or web address] Information not available 08/26/2023 Do you have difficulty doing errands alone? No MIGRATION.83210 09059 Information not available 01/29/2023 Are you able to care for yourself independently? Yes MIGRATION.47382 50186 Information not available 01/29/2023 Do you have difficulty dressing, bathing, grooming, or toileting? No MIGRATION.74307 52841 Information not available 01/29/2023 Do you or have you ever used e-cigarettes or vape? Never used electronic cigarettes MIGRATION.64952 44305 Information not available 01/29/2023 What is your exercise level? Occasional MIGRATION.78694 63058 Information not available 01/29/2023 Mental Status Question Answer Note LastModified by [employer] ion Details LastModified Time Do you have difficulty concentrating, remembering or making decisions? No MIGRATION.[id number] 6 Information not available 01/29/2023 Family History [...] HAVE YOU BEEN HOSPITALIZED OR SEEN IN [facility] IN THE PAST YEAR ? [...] Time pneumococcal polysaccharide PPV23 1 completed [facility] [employer] [facility] 08/26/2023 14:38:26 COVID-19, mRNA, LNP-S, bivalent, PF, 30 mcg/0.3 mL dose 2 completed Not Available [facility] 09/27/2025 11:46:44 Pneumococcal conjugate PCV20, polysaccharide XTP942 conjugate, adjuvant, PF 3 completed Not Available [facility] 09/27/2025 11:46:44 Tdap 5 completed Not Available [facility] 09/27/2025 11:46:44 COVID-19, mRNA, LNP-S, PF, 10 mcg/0.2 mL 5 completed Not Available [facility] 09/27/2025 11:46:44 RSV, recombinant, protein subunit RSVpreF, adjuvant reconstituted, 0.5 mL, PF 5 completed Not Available [facility] 09/27/2025 11:46:44 Influenza, high-dose, trivalent, PF 5 completed Not Available [facility] 09/27/2025 11:46:44 zoster recombinant 5 completed Not Available [facility] 09/27/2025 11:46:44 Influenza, high-dose, quadrivalent, PF 3 completed Katty stephens, [facility] [employer] [facility] 08/26/2023 16:00:55 Influenza, split virus, trivalent, preservative 4 completed Not Available [facility] 01/29/2023 09:21:35 Influenza, split virus, trivalent, preservative 3 completed Not Available [facility] 01/29/2023 09:21:35 influenza, unspecified formulation 2 completed Not Available [facility] 01/29/2023 09:21:35 COVID-19, mRNA, LNP-S, PF, 30 mcg/0.3 mL dose 2 completed Not Available [facility] 01/29/2023 09:21:35 Influenza, split virus, quadrivalent, preservative 1 completed Not Available [facility] 01/29/2023 09:21:35 COVID-19, mRNA, LNP-S, PF, 30 mcg/0.3 mL dose 1 completed Not Available [facility] 01/29/2023 09:21:36 SARS-COV-2 (COVID-19) vaccine, UNSPECIFIED 1 completed Not Available [facility] 01/29/2023 09:21:36 SARS-COV-2 (COVID-19) vaccine, UNSPECIFIED 1 completed Not Available [facility] 01/29/2023 09:21:36 Influenza, high-dose, quadrivalent, PF 0 completed Not Available [facility] 01/29/2023 09:21:36 Influenza, high-dose, trivalent, PF 0 completed Not Available [facility] 01/29/2023 09:21:36 Influenza, high-dose, trivalent, PF 8 completed Not Available [facility] 01/29/2023 09:21:37 Influenza, high-dose, trivalent, PF 7 completed Not Available [facility] 01/29/2023 09:21:37 Influenza, split virus, quadrivalent, PF 6 completed Not Available [facility] 01/29/2023 09:21:37 Influenza, split virus, quadrivalent, preservative 5 completed Not Available [facility] 01/29/2023 09:21:37 Pneumococcal conjugate PCV 13 5 completed Not Available [facility] 01/29/2023 09:21:37 Influenza, high-dose, trivalent, PF 4 completed Odin Alex MD [address] [facility] [address], [address], [facility] [employer] 09/09/2024 12:50:45 Past Encounters Encounter ID Performer Location Encounter Start Date Encounter Closed Date Diagnosis/Indication Diagnosis SNOMED-CT Code Diagnosis ICD10 Code Diagnosis IMO Codes Diagnosis Note [id number] Odin Alex MD [employer] [facility] Internal Med Rozina mccarthy [address] [facility] , [facility] [place] [address] 05/15/2021 00:00:00 05/15/2021 13:03:34 [id number] Odin Alex MD [employer] [facility] Internal Med [facility] [address] [place] [address] 08/01/2021 00:00:00 08/01/2021 12:38:03 [id number] Odin Alex MD [employer] [facility] Internal Med [place] [address] [facility] [address], [place] [address] 11/27/2021 00:00:00 11/27/2021 15:08:49 [id number] Odin Alex MD [employer] [facility] Internal Med [place] [address] [place] [address] y , [place] [address] 03/26/2022 00:00:00 03/26/2022 15:38:17 [id number] Odin Alex MD [employer] [facility] Internal Med [place] [address] [place] [address] y , [place] [address] 05/31/2022 00:00:00 05/31/2022 11:59:19 [id number] Odin Alex MD [employer] [facility] Internal Med [place] [address] [place] [address] y , [place] [address] 07/26/2022 00:00:00 07/26/2022 12:34:00 [id number] Odin Alex MD [employer] [facility] Internal Med [place] [address] [place] [address] y , [place] [address] 12/13/2022 00:00:00 12/13/2022 15:11:30 [id number] Odin Alex MD [employer] [facility] Internal Med [place] [address] [place] [address] y , [place] [address] 03/28/2023 14:54:06 03/28/2023 15:35:24 Benign essential hypertension 8544859 I10 Hypercholesterolemia 136 62221 E78.00 Obstructiv e sleep apnea syndrome 87268329 G47.33 Gastroesop hageal reflux disease 307128408 K21.9 Obese class II 854929467 1 16882 E66.9 Atrial fibrillation 4943 6004 I48.91 Disorder of prostate 302 46245 N42.9 [id number] Odin Alex MD [facility] Internal Med Rozina mccarthy [address] [place] [address] [place] [address] 08/26/2023 14:15:37 08/26/2023 15:31:19 Adult health examination 483066459 Z00.00 Screening for disorder 842001649 Z13.9 Benign ess ential hypertension 5068993 I10 Atrial fibrillation 4943 6004 I48.91 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 18800080 M48.062 Administra tion of influenza vaccine 89206503 Z23 [id number] Odin Alex MD [facility] Internal Med Rozina mccarthy [address] [place] [address] [place] [address] 09/23/2023 14:20:04 09/23/2023 15:01:03 Leukocytosis 551419399 D72.281 [id number] Odin Alex MD [facility] [facility] [address] [address] 10/16/2023 14:26:42 10/16/2023 14:57:58 Cellulitis of toe of right foot [id number] L03.066 [id number] Odin Alex MD [facility] Internal Med [facility] [address] [address] 12/30/2023 14:41:53 12/30/2023 15:30:52 Benign essential hypertension 5432162 I10 Atrial fibrillation 4943 6004 I48.91 Hypercholesterolemia 136 39386 E78.00 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 89136230 M48.002 [id number] Odin Alex MD [facility] Internal Med [facility] [address] [address] 01/19/2024 10:14:13 01/19/2024 10:52:34 Headache 65543643 G44.574 [id number] Odin Alex MD [facility] Internal Med Rozina mccarthy [address] [place] [address] [place] [address] 04/27/2024 14:44:48 04/27/2024 15:35:58 Benign essential hypertension 9972631 I10 Atrial fibrillation 4943 6004 I48.91 Anxiety 46223989 F41.9 Chronic ob structive pulmonary disease 06702081 J44.9 Gastroesop hageal reflux disease 009573677 K21.9 Hypercholesterolemia 136 92885 E78.00 Obese class II 899927105 1 73230 E66.9 Disorder of prostate 302 89640 N42.9 [id number] Odin Alex MD [facility] Internal Med [facility] [address] [facility] , [place] [address] 09/09/2024 12:06:53 09/09/2024 14:13:29 Adult health examination 467413846 Z00.00 Screening for disorder 886303871 Z13.9 Administra tion of influenza vaccine 93053351 Z23 Benign ess ential hypertension 6514464 I10 Atrial fibrillation 4943 6004 I48.91 Chronic ob structive pulmonary disease 72082914 J44.9 Hypercholesterolemia 136 63915 E78.00 Obese class II 487575196 1 59175 E66.9 Hyperglycemia 59341613 R 73.9 [id number] Odin Alex MD [facility] Primary Care [facility] [address] [facility] [address] [place] [address] 01/11/2025 11:54:22 01/11/2025 12:52:58 Coronary arteriosclerosis 36243191 I25.10 Atrial fibrillation 4943 6004 I48.91 Benign ess ential hypertension 7382738 I10 Chronic ob structive pulmonary disease 26651454 J44.9 [id number] Odin Alex MD [facility] Primary Care [facility] [address] [facility] [address] [place] [address] 02/10/2025 14:15:48 02/10/2025 14:46:13 Coronary arteriosclerosis 53892254 I25.10 Hypercholesterolemia 136 45071 E78.00 Chronic ob structive pulmonary disease 31082566 J44.9 Atrial fibrillation 4943 6004 I48.91 Essential hypertension 11629876 I10 [id number] Odin Alex MD [facility] Internal Med [facility] [address]o, [facility] [place] [address] 05/24/2025 11:59:46 05/24/2025 12:50:34 Chronic obstructive pulmonary disease 41795063 J44.9 Atrial fibrillation 4943 6004 I48.91 Coronary arteriosclerosis 22670730 I25.10 Essential hypertension 07143063 I10 Hypercholesterolemia 136 42373 E78.00 Obese class II 171059551 1 21750 E66.9 [id number] Odin Alex MD [facility] Internal Med [facility] 2043 [facility] [place] [address] 09/27/2025 11:45:45 09/27/2025 12:52:51 General examination of patient 573600018 Z00.00 [id number] Coronary arteriosclerosis 33810524 I25.10 Essential hypertension 21916643 I10 Atrial fibrillation 4943 6004 I48.91 Hypercholesterolemia 136 59028 E78.00 Type 2 raiza betes mellitus controlled by diet 8663806030 78379 E11.9 4206980 Chronic ob structive pulmonary disease 30852929 J44.9 Chronic low back pain 27 0429099 M54.50 Obesity 325831336 E66.9 Health Concerns Section Related Observation LastModified by Organization Detai ls LastModified Time None Recorded Concern Status LastModified by Organization Details LastModified Time None Recorded Advance Directives Directive N: Info given previously Payers Insurance Date Sequence Insurance Name Policy Number Policy Richards Covered Member ID Richards Member ID Guarantor Name 09/26/2025 1 [employer] (MEDICARE REPLACEMENT/ ADVANTAGE - PPO) [id number] Billy Russ [id number] Billy Russ Notes Date Note Type Note Provider Name and Address Organization Details Recorded Time text/html Patient Name: Billy JebDate Of Service: August ( 09.09.2024 ): 1945 [...] Systemic Symptoms:none Medication Reconciliation: from medication list. [id number]: Echocardiogram demonstrated an ejection fraction of approximately [...] Succinate Er. Rate control: controlled ventricular response [id number] Criteria: Age > 75 for embolic phenomenon. [...] to be evaluated and instructed by open developer operator on weight loss diet. Active Medication ListMethotrexate [...] PREVNAR 13 GC PREVNAR 20 Needed(X) 2021-08 COVSocitive Surgical Akqrqes6933-18 Distal Phalanx Amputation Rt. 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 [id number]: Echocardiogram demonstrated an ejection fraction of approximately [...] to be evaluated and instructed by open developer operator on weight loss diet. Active Medication ListMethotrexate [...] PrnAlbuterol Sulfate Hfa 90 UG AEROSOL, METERED T3jUzexcfcfx 25 MG-320 MG (TABLET - ORAL) DailyMetoprolol Succinate Er 100 MG One Tablet At DinerPlavix 75 MG TABLET, FILM COATED Once Daily Vaccination and Immunization( ) 2024-08 INFLUENZA( ) 2011-08 PNEUMOVAX(X) 2015-01 PREVNAR 13 GC PREVNAR 20 Needed(X) 2021-08 COVID [facility] Surgical Fezymfc3822-54 LAD Zlvmq7100-71 Distal Phalanx Amputation Rt. Second Zqx3463-19 Left Rjmgqxzg6154-53 Right Excnunhj4072-69 Right Inguinal Xohnof6739-78 Pilonidal Cyst times 2 Preventative Testing( ) 11/10/2024 Optometry( ) 09/24/2024 Albumin 4.2 G/DL( ) 09/24/2024 HAIC 6.7 % H( ) 05/18/2024 PSA 3.2 NG/ML 05/18/2026( ) 03/05/2024 CT Thorax( ) 05/08/2015 Colonoscopy (10 Years) 05/08/2025 Social HistorySmoke one pack daily for approximately 20 years and quit in 2000Drinks sociallyRetired computer system specialist Family HistoryMother 69 from ITP and complications following the splenectomyFather 83 from Cancer of the LungTwo brothers both frin DM, ASHD, and Atrial Fibrillation and renal complicationsThree sisters all living each has DM and HTN Odin Alex MD [address] [facility], [facility] [address], [place], [address], [place] [facility] [employer] 01/11/2025 12:39:46 5 text/html Patient Name: Billy [...] and myalgia Medication Reconciliation: from medication list. [id number]: Echocardiogram demonstrated an ejection fraction of approximately [...] Succinate Er. Rate control: controlled ventricular response [id number] Criteria: Age 65-74 for embolic phenomenon. Anticoagulation: [...] PrnAlbuterol Sulfate Hfa 90 UG AEROSOL, METERED E7rVxmdlxenp 25 MG-320 MG (TABLET - ORAL) DailyMetoprolol Succinate Er 100 MG One Tablet At DinerPlavix 75 MG TABLET, FILM COATED Once Daily Vaccination and Immunization( ) 2024-08 INFLUENZA( ) 2011-08 PNEUMOVAX(X) 2015-01 PREVNAR 13 GC PREVNAR 20 Needed(X) 2020- COVSocitive Surgical Osedutp9416-92 LAD Hdzhs8547-92 Distal Phalanx Amputation Rt. Second Rmg7403-28 Left Zokhoouk6140-15 Right Jimecuod4092-30 Right Inguinal Cvajyv8261-97 Pilonidal Cyst times 2 Preventative Testing( ) 11/10/2024 Optometry( ) 09/24/2024 Albumin 4.2 G/DL( ) 09/24/2024 HAIC 6.7 % H( ) 05/18/2024 PSA 3.2 NG/ML 05/18/2026( ) 03/05/2024 CT Thorax( ) 05/08/2015 Colonoscopy (10 Years) 05/08/2025 Social HistorySmoke one pack daily for approximately 20 years and quit in 2000Drinks sociallyRetired computer system specialist Family HistoryMother 69 from ITP and complications following the splenectomyFather 83 from Cancer of the LungTwo brothers both frin DM, ASHD, and Atrial Fibrillation and renal complicationsThree sisters all living each has DM and HTN Odin Alex MD [address] [facility], [address], [place], [address], [place] [facility] [employer] 02/10/2025 14:43:30 5 text/html Patient Name: Billy SullivanDate Of Service: Friday ( 05.24.2025 ): 1945 [...] Systemic Symptoms:none Medication Reconciliation: from medication list. [id number]: Echocardiogram demonstrated an ejection fraction of approximately [...] Succinate Er. Rate control: controlled ventricular response [id number] Criteria: Age > 75 for embolic phenomenon. [...] to be evaluated and instructed by open developer operator on weight loss diet. Active Medication ListMethotrexate [...] PrnAlbuterol Sulfate Hfa 90 UG AEROSOL, METERED D0lAyhcnaumh 25 MG-320 MG (TABLET - ORAL) DailyMetoprolol Succinate Er 25 MG TABLET, FILM COATED, EXTENDED RELEASE One Tablet At DinerPlavix 75 MG TABLET, FILM COATED Once Daily Adverse Drug Reactions ReviewedNo Known Adverse Drug Reactions! Vaccination and Immunization ( ) 2024-08 INFLUENZA( ) 2011-08 PNEUMOVAX(X) 2015-01 PREVNAR 13 GC PREVNAR 20 Needed(X) 2021-08 COVSocitiveImmunizations and Vaccinations Discussed and Implemented if feasible In the Office. Else referred to pharmacies. Surgical History 2024-10 LAD Gyihj2389-33 Distal Phalanx Amputation Rt. Second Kfc8854-46 Left Pxhocwkz3357-99 Right Gcgmejkv1441-72 Right Inguinal Doxhlu3614-27 Pilonidal Cyst times 2 Preventative Testing ( ) 11/10/2024 Optometry( ) 09/24/2024 Albumin 4.2 G/DL( ) 09/24/2024 HAIC 6.7 % H( ) 05/18/2024 PSA 3.2 NG/ML 05/18/2026( ) 03/05/2024 CT Thorax(X) 05/08/2015 Colonoscopy (10 Years) 05/08/2025Preventative Testing Discussed and Scheduled if Acceptable to Patient Social HistorySmoke one pack daily for approximately 20 years and quit in 2000Drinks sociallyRetired computer system specialist Family HistoryMother 69 from ITP and complications [...] 70 0-130 MG/DL Odin Alex MD [address] [facility], [facility] [address], [place], [address], [facility] [employer] 05/24/2025 12:43:07 5 text/html Patient Name: Billy [...] Systemic Symptoms:none Medication Reconciliation: from medication list. [id number]: Ultrasound the abdominal aorta demonstrates no evidence [...] Succinate Er. 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 Wellness Evaluation PHQ-2 [...] PrnAlbuterol Sulfate Hfa 90 UG AEROSOL, METERED U6aBxzmxmyhg 25 MG-320 MG (TABLET - ORAL) DailyMetoprolol [...] the Office. Else referred to pharmacies. Surgical Nylbvps3972-74 LAD Jseje7724-68 Distal Phalanx Amputation Rt. Second Wro6086-06 Left Kssypoxf7859-97 Right Rcimveov5135-28 Right Inguinal Xkhqkw2314-26 Pilonidal Cyst times 2 Preventative Testing: (X) Due (?) Optional( ) 07/28/2025 HAIC 6.0( ) 05/31/2025 Albumin 4.3 G/DL( ) 05/31/2025 PSA 2.3 NG/ML 05/31/2026( ) 11/10/2024 Optometry( ) 03/05/2024 CT Thorax(X) 05/08/2015 Colonoscopy (10 Years) 05/08/2025Preventative Testing Discussed with Patient and Attendants Social HistorySmoke one pack daily for approximately 20 years and quit in 2000Drinks sociallyRetired computer system specialist Family HistoryMother 69 from ITP and complications [...] PrnAlbuterol Sulfate Hfa 90 UG AEROSOL, METERED K1cCnyobzfpx 25 MG-320 MG (TABLET - ORAL) DailyMetoprolol [...] the Office. Else referred to pharmacies. Surgical Ppfokmu8405-67 LAD Gtfww7130-81 Distal Phalanx Amputation Rt. Second Ssh3023-40 Left Hsqnzabd2259-71 Right Mkkgvelh3500-97 Right Inguinal Tqkvua4498-10 Pilonidal Cyst times 2 Preventative Testing: (X) Due (?) Optional( ) 07/28/2025 HAIC 6.0( ) 05/31/2025 Albumin 4.3 G/DL( ) 05/31/2025 PSA 2.3 NG/ML 05/31/2026( ) 11/10/2024 Optometry( ) 03/05/2024 CT Thorax(X) 05/08/2015 Colonoscopy (10 Years) 05/08/2025Preventative Testing Discussed with Patient and Attendants Social HistorySmoke one pack daily for approximately 20 years and quit in 2000Drinks sociallyRetired computer system specialist Family HistoryMother 69 from ITP and complications following the splenectomyFather 83 from Cancer of the LungTwo brothers both frin DM, ASHD, and Atrial Fibrillation and renal complicationsThree sisters all living each has DM and HTN Odin Alex MD [address] [facility], [facility] [address], [place], [address], [place] [facility] [employer] 09/27/2025 12:50:04
[2025-10-26 08:53] VITALS: BP 123/51; PULSE 64; RESP 18; TEMP 36.4; O2SAT 98
[2025-10-26] MEDS: LACTATED RINGERS 1,000 ML 150 ML IV CONT (09:01)
--- NOTE | 2025-10-26 09:03 | WPDANESEPPF ---
Anes - Initial Pre Proc Eval Procedure: Operation Date: 10/26/25 10:00 Proposed Procedures p Screening Colonoscopy - Bennie Cain MD Date/Time: 10/26/25 09:03 Surgeon: Bennie Cain MD Pre Op Diagnosis: Screening Patient Data Age: 80 Gender: M Height: 1.83 m Weight: 105.4 kg Last Vital Signs Temp 36.4 C L 10/26/25 08:53 Pulse 64 10/26/25 08:53 Resp 18 10/26/25 08:53 BP 123/51 L 10/26/25 08:53 Pulse Ox 98 10/26/25 08:53 O2 Del Method Room Air 10/26/25 08:53 Allergies Allergy/AdvReac Type Severity Reaction Status Date / Time nirmatrelvir (From Paxlovid AdvReac Insomnia Verified 10/26/25 08:48 (EUA)) ritonavir (From Paxlovid AdvReac Insomnia Verified 10/26/25 08:48 (EUA)) Home Medications ?Medication ?Instructions ?Recorded ?Confirmed ?Type acetaminophen 650 mg tablet 650 mg PO Q6H PRN pain 09/24/22 10/18/25 History alprazolam 0.25 mg tablet 0.25 mg PO HS PRN Anxiety 09/24/22 10/26/25 History apixaban 5 mg tablet (Eliquis) 5 mg PO Q12H 09/24/22 10/26/25 History diphenhydramine HCl 25 mg capsule 25 mg PO TID PRN Itching 09/24/22 10/18/25 History (Benadryl) fluticasone propionate 50 2 spray intranasal DAILY 09/24/22 10/18/25 History mcg/actuation nasal spray,suspension loratadine 10 mg tablet (Claritin) 10 mg PO DAILY 09/24/22 10/26/25 History melatonin 10 mg tablet 10 mg PO HS 09/24/22 10/26/25 History metoprolol succinate 100 mg 100 mg PO QPM 09/24/22 10/26/25 History tablet,extended release 24 hr montelukast 10 mg tablet 10 mg PO DAILY 09/24/22 10/26/25 History ywsxeraj-ur-vtafo 300 mcg-K 60 1 tablet PO DAILY 09/24/22 10/26/25 History mcg-lycop 600 mcg-lutein 300 mcg tablet (Centrum Silver Men) pantoprazole 40 mg tablet,delayed 40 mg PO QPM 09/24/22 10/26/25 History release pravastatin 40 mg tablet 40 mg PO QPM 09/24/22 10/26/25 History budesonide 160 mcg-glycopyr 9 1 inh inhalation BID 08/15/23 10/26/25 History mcg-formot 4.8 mcg/actuation HFA inhaler (Breztri Aerosphere) furosemide 40 mg tablet 40 mg PO Q12H 12/23/24 10/26/25 History acetaminophen 500 mg tablet 1,000 mg (2 x 500 mg) PO Q6H PRN 02/06/25 10/26/25 Rx (Tylenol Extra Strength) pain #50 tabs ipratropium bromide 42 mcg (0.06 2 spray intranasal TID PRN allergy 02/23/25 10/18/25 Rx %) nasal spray symptoms 1 month #15 mL valsartan 320 1 tablet PO DAILY 04/11/25 10/26/25 History mg-hydrochlorothiazide 25 mg tablet blood sugar diagnostic (OneTouch #10 ea 06/27/25 09/29/25 History Verio test strips) blood-glucose meter (OneTouch #1 ea 06/27/25 09/29/25 History Verio Flex Meter) escitalopram oxalate 10 mg tablet 10 mg PO DAILY 06/27/25 10/26/25 History lancets 33 gauge (OneTouch Delica #100 ea 06/27/25 09/29/25 History Plus Lancet) metformin 500 mg tablet 500 mg PO BIDWMEAL 06/27/25 10/26/25 History semaglutide 0.25 mg or 0.5 mg (2 mg subcut 06/27/25 09/29/25 History mg/3 mL) subcutaneous pen injector (Ozempic) roflumilast 500 mcg tablet 500 mcg PO DAILY 1 month #30 tabs 08/29/25 10/26/25 Rx (Daliresp) albuterol sulfate 90 mcg/actuation 2 puff inhalation Q6H PRN 10/18/25 10/26/25 History aerosol inhaler shortness of breath or wheezing semaglutide 1 mg/dose (4 mg/3 mL) 1 mg subcut WEEKLY 10/18/25 10/26/25 History subcutaneous pen injector (Ozempic) Laboratory Tests 10/26/25 09:00 POC Capillary Glucose 95 mg/dl (65-105) Patient hx anesthesia problems: none Family hx anesthesia problems: none Results Review: All pre-operative results and documents have been reviewed as part of the pre-operative evaluation. [facility] Past Medical History Medical History Vertigo Chronic lower back pain Lumbosacral radiculopathy Paresthesia of both hands Diabetic polyneuropathy Diabetes Obstructive sleep apnea Skin cancer s/p excision Kidney stones GERD (gastroesophageal reflux disease) Enlarged prostate Chronic obstructive pulmonary disease Congestive heart failure (CHF) Chronic anticoagulation Cardiomegaly Hypertension Anxiety Arthritis Spinal stenosis Obstructive sleep apnea on CPAP Aortic aneurysm Being monitored by a vascular surgeon in [place]. 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 No aneurysm. Paroxysmal atrial fibrillation Cardioversion x7, lesion in 2013 Surgical History Surgical History History of bilateral inguinal hernia repair History of bilateral cataract extraction History of cardiac radiofrequency ablation Family History Family History Father Hernia Heart problem Lung cancer Coronary artery disease Acute myocardial infarction Pulmonary disease Sibling Family history of heart disease in male family member before age 55 Heart problem Breast cancer Uterine cancer Hypertension Coronary artery disease Diabetes mellitus Pulmonary disease Mother Diabetes mellitus Anemia Hypertension Social History Social History Social History: Surrogate medical decision maker: Maria D Russ, spouse. Code status: Full code. Smoking packs per day: 0.75 Smoking cigarettes per day: 15.0 Years smoked: 21 Smoking pack-years: 15.75 Smoking status: Former smoker Second hand tobacco smoke exposure: No Alcohol intake: current Drinks per week: 1 Substance use: never Substance use type: does not use Do You Feel Safe in your Home?: Yes Lack of Transportation: No Lack of Food: Never True Current Housing: I Have Housing Concerned About Future Housing: No Difficulty Paying Gas/Electric Bills: No Difficulty Paying for Meds: No Currently Unemployed: No Education: Associate Degree Difficulty w/ Childcare or Family Care: No Living arrangements: with family Spiritual care concerns: No Anes - Eval Final PreProcedure Day of Procedure 10/26/25 09:03 Patient weight: obese Heart: irregular rhythm Lungs: clear to auscultation Airway: Mallampati scale class III Neurological: alert and oriented Last oral intake: >/= 8 hours ASA classification: IV Emergent: no Anesthetic plan: proceed Anesthesia type and monitoring: general GIVS and standard monitoring Results Review: All pre-operative results and documents have been reviewed as part of the pre-operative evaluation. Informed Consent: The patient's anesthetic plan and its attendant risks and benefits were discussed with the patient/family/POA. Questions were solicited and answers provided to the satisfaction of the patient/family/POA.
--- NOTE | 2025-10-26 09:05 | P.HP_ITS ---
History of Present Illness History of Present Illness Consent: Risks, benefits, and alternatives have been discussed and questions answered. Patient agrees to proceed with procedure. Chief complaint: Screening Narrative: Billy Russ is a 80 year old male here for screening colonoscopy, last one in 2014 Review of Systems Review of Systems: All systems reviewed & are unremarkable except as noted in HPI and below PMFSH Past Medical History Medical History (Updated 10/26/25 @ 09:06 by Bennie Cain MD) Colon cancer screening Vertigo Chronic lower back pain Lumbosacral radiculopathy Paresthesia of both hands Diabetic polyneuropathy Diabetes Obstructive sleep apnea Skin cancer s/p excision Kidney stones GERD (gastroesophageal reflux disease) Enlarged prostate Chronic obstructive pulmonary disease Congestive heart failure (CHF) Chronic anticoagulation Cardiomegaly Hypertension Anxiety Arthritis Spinal stenosis Obstructive sleep apnea on CPAP Aortic aneurysm Being monitored by a vascular surgeon in [place]. 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 No aneurysm. Paroxysmal atrial fibrillation Cardioversion x7, lesion in 2013 Surgical History Surgical History History of bilateral inguinal hernia repair History of bilateral cataract extraction History of cardiac radiofrequency ablation Family History Family History Father Hernia Heart problem Lung cancer Coronary artery disease Acute myocardial infarction Pulmonary disease Sibling Family history of heart disease in male family member before age 55 Heart problem Breast cancer Uterine cancer Hypertension Coronary artery disease Diabetes mellitus Pulmonary disease Mother Diabetes mellitus Anemia Hypertension Social History Social History Social History: Surrogate medical decision maker: Maria D Russ, spouse. Code status: Full code. Smoking packs per day: 0.75 Smoking cigarettes per day: 15.0 Years smoked: 21 Smoking pack-years: 15.75 Smoking status: Former smoker Second hand tobacco smoke exposure: No Alcohol intake: current Drinks per week: 1 Substance use: never Substance use type: does not use Do You Feel Safe in your Home?: Yes Lack of Transportation: No Lack of Food: Never True Current Housing: I Have Housing Concerned About Future Housing: No Difficulty Paying Gas/Electric Bills: No Difficulty Paying for Meds: No Currently Unemployed: No Education: Associate Degree Difficulty w/ Childcare or Family Care: No Living arrangements: with family Spiritual care concerns: No Meds Home Medications and Allergies Home Medications ?Medication ?Instructions ?Recorded ?Confirmed ?Type acetaminophen 650 mg tablet 650 mg PO Q6H PRN pain 10/18/25 History alprazolam 0.25 mg tablet 0.25 mg PO HS PRN Anxiety 10/26/25 History apixaban 5 mg tablet (Eliquis) 5 mg PO Q12H 09/24/22 1 12/26/24 History diphenhydramine HCl 25 mg capsule 25 mg PO TID PRN Itc fili 09/24/22 10/18/25 History (Benadryl) fluticasone propionate 50 2 spray intranasal DAILY 10/18/25 History mcg/actuation nasal spray,suspension loratadine 10 mg tablet (Claritin) 10 mg PO DAILY 09/0110/26/25 History melatonin 10 mg tablet 10 mg PO HS 09/24/22 5 History metoprolol succinate 100 mg 100 mg PO QPM 09/24/22 History tablet,extended release 24 hr montelukast 10 mg tablet 10 mg PO DAILY 09/24/2210/02 History gneqnfcl-nu-iwmzq 300 mcg-K 60 1 tablet PO DAILY 09/2410/26/25 History mcg-lycop 600 mcg-lutein 300 mcg tablet (Centrum Silver Men) pantoprazole 40 mg tablet,delayed 40 mg PO QPM 2 10/26/25 History release pravastatin 40 mg tablet 40 mg PO QPM 09/24/22 History budesonide 160 mcg-glycopyr 9 1 inh inhalation BID 10/26/25 History mcg-formot 4.8 mcg/actuation HFA inhaler (Breztri Aerosphere) furosemide 40 mg tablet 40 mg PO Q12H 12/23/2410/26 History acetaminophen 500 mg tablet 1,000 mg (2 x 500 mg) PO Q 6H PRN 02/06/25 10/26/25 Rx (Tylenol Extra Strength) pain #50 tabs ipratropium bromide 42 mcg (0.06 2 spray intranasal TI D PRN allergy 02/23/25 10/18/25 Rx %) nasal spray symptoms 1 month #15 mL valsartan 320 1 tablet PO DAILY 04/11/25 1 12/26/24 History mg-hydrochlorothiazide 25 mg tablet blood sugar diagnostic (OneTouch #10 ea 06/27/2509/29 History Verio test strips) blood-glucose meter (OneTouch #1 ea 06/27/25 09/29/25 History Verio Flex Meter) escitalopram oxalate 10 mg tablet 10 mg PO DAILY 06/2710/26/25 History lancets 33 gauge (OneTouch Delica #100 ea 06/27/25 History Plus Lancet) metformin 500 mg tablet 500 mg PO BIDWMEAL 06/27/25 10/26/25 History semaglutide 0.25 mg or 0.5 mg (2 mg subcut 06/27/25 History mg/3 mL) subcutaneous pen injector (Ozempic) roflumilast 500 mcg tablet 500 mcg PO DAILY 1 month #3 0 tabs 08/29/25 10/26/25 Rx (Daliresp) albuterol sulfate 90 mcg/actuation 2 puff inhalation Q 6H PRN 10/18/25 10/26/25 History aerosol inhaler shortness of breath or wheez ing semaglutide 1 mg/dose (4 mg/3 mL) 1 mg subcut WEEKLY 1 12/18/24 10/26/25 History subcutaneous pen injector (Ozempic) Allergies Allergy/AdvReac Type Severity Reaction Status Date / Time nirmatrelvir (From Paxlovid AdvReac Insomnia Verified 10/26/25 08:48 (EUA)) ritonavir (From Paxlovid AdvReac Insomnia Verified 10/26/25 08:48 (EUA)) Vital Signs Vital Signs - 24 hr 10/26/25 08:53 Temperature 97.5 F L Pulse Rate 64 Respiratory Rate 18 Blood Pressure 123/51 L Pulse Oximetry 98 Oxygen Delivery Room Air Exam Const: General: comfortable and no acute distress HENMT: Face/Nose/Sinus: Normal nares present Eyes: General: appearance normal, both eyes and all related structures Neck: Neck: no JVD Resp: Auscultation: clear to auscultation bilaterally Cardio: Rate: regular rate Rhythm: regular rhythm GI: Inspection: non-distended GI Palp: Yes Soft to palpation Skin: General skin exam: normal color Extrem: General: normal to inspection Psych: Mental Status: mental status grossly normal Assessment and Plan Assessment and plan (1) Colon cancer screening: Code(s): Z12.11 - Encounter for screening for malignant neoplasm of colon Status: Acute Assessment and Plan: colonoscopy
[2025-10-26 09:28] VITALS: BP 116/62; PULSE 66; RESP 16; O2SAT 99
--- NOTE | 2025-10-26 09:29 | S_PTH ---
PATIENT: Billy Russ LOC: [facility] Robledo#:[id number] AGE/SX: 80/M ROOM: RE10/26/[address]: Bennie Cain MD : [id number] BED: DIS: 10/26/2025 SPEC #: [id number] RECD: 10/26/25 09:54 STATUS: [place] #: [id number] ALAN: 10/26/25 09:[address]: Bennie Cain DEPT: [facility] Surgical RECD BY: Denisha Chino ENTERED: 10/26/25 09:56 SP TYPE: Surgical OTHR DR: Odin AlexMD Tissues: A - Colon Polypectomy B - Colon Polypectomy C - Colon Polypectomy D - Colon Polypectomy E - Rectal Polyp Procedures: Hematoxylin and Eosin Stain Gross and Microscopic Level 4
[2025-10-26 09:38] VITALS: BP 114/75; PULSE 65; RESP 18; O2SAT 98
[2025-10-26 09:48] VITALS: BP 123/61; PULSE 72; RESP 15; O2SAT 98
== END 2025-10-26 09:59 | disposition home or self-care (01) ==
PROVIDERS: PCP Internal Medicine; Referring Provider Internal Medicine; Visit Provider Internal Medicine Gastroenterology
PROC: 0DJD8ZZ Inspection of Lower Intestinal Tract, Via Natural or Artificial Opening Endoscopic (ICD-10-PCS; CPT 45378; principal; 2025-10-26 10:00)
DX: Z12.11 Encounter for screening for malignant neoplasm of colon (principal); D12.0 Benign neoplasm of cecum; D12.2 Benign neoplasm of ascending colon; D12.3 Benign neoplasm of transverse colon; D12.4 Benign neoplasm of descending colon; D12.8 Benign neoplasm of rectum; K64.4 Residual hemorrhoidal skin tags; K57.30 Diverticulosis of large intestine without perforation or abscess without bleeding; K21.9 Gastro-esophageal reflux disease without esophagitis; N40.0 Benign prostatic hyperplasia without lower urinary tract symptoms; J44.9 Chronic obstructive pulmonary disease, unspecified; I11.9 Hypertensive heart disease without heart failure; I50.9 Heart failure, unspecified; F41.9 Anxiety disorder, unspecified; I48.0 Paroxysmal atrial fibrillation; E11.42 Type 2 diabetes mellitus with diabetic polyneuropathy; G47.33 Obstructive sleep apnea (adult) (pediatric); G89.29 Other chronic pain; M19.90 Unspecified osteoarthritis, unspecified site; E66.9 Obesity, unspecified; Z68.31 Body mass index [BMI] 31.0-31.9, adult; M54.50 Low back pain, unspecified; Z79.01 Long term (current) use of anticoagulants; Z79.51 Long term (current) use of inhaled steroids; Z79.84 Long term (current) use of oral hypoglycemic drugs; Z79.85 Long-term (current) use of injectable non-insulin antidiabetic drugs; Z99.89 Dependence on other enabling machines and devices; Z98.890 Other specified postprocedural states; Z87.891 Personal history of nicotine dependence; Z87.442 Personal history of urinary calculi; Z85.828 Personal history of other malignant neoplasm of skin; Z86.79 Personal history of other diseases of the circulatory system; Z80.1 Family history of malignant neoplasm of trachea, bronchus and lung; Z80.3 Family history of malignant neoplasm of breast; Z80.49 Family history of malignant neoplasm of other genital organs; Z82.49 Family history of ischemic heart disease and other diseases of the circulatory system
CPT/HCPCS: 45385; 82948; 88305; J2704; J7120

== ENCOUNTER 2025-11-03 13:10 | Outpatient (CLI) | payer MEDICARE, SELFPAY ==
--- NOTE | 2025-11-03 13:30 | NEURO_ITS ---
Clinical note: Patient is 80-year-old with history of lower back pain and paresthesias in both lower limbs including feet, legs, thighs and buttocks. Patient also complains of weakness. There is history of diabetes mellitus for last 6 months. On a brief neurological examination no focal muscle wasting or fasciculations were noted in both lower limbs. The results suggest EMG nerve can study are given below. Summary of findings: 1. Left and I peroneal motor response were absent over extensor digitorum brevis. However deep peroneal motor responses were also recorded from tibialis anterior which show conduction velocity moderately decreased on the left and normal on the right side. 2. Left tibial motor was absent over abductor hallucis. Right tibial motor distal latency was markedly prolonged and amplitude was severely decreased. Conduction velocity of moderately decreased. 3. Left and right sural sensory responses are absent. 4. Left and right tibial H reflex is absent. 5. EMG examination performed using a monopolar needle electrode. Various muscles examined in paraspinal muscles and both lower limbs. No denervation changes were seen in paraspinal muscles. Peripheral muscles show decreased motor unit recruitment in various muscles at shown below. Complex repetitive discharges were seen in the left semimembranosus. Mild decreased recruitment was noted in the left tonsillar fossa preston. Impression: 1. EMG nerve can study on both lower limbs show evidence of severe, length- dependent, axonal sensory motor polyneuropathy such as may be seen with diabetes mellitus. 2. EMG examination of peripheral muscles raises possibility of chronic L5-S1 radiculopathy, however no denervation changes were seen in paraspinal muscles. Clinical a lucency radiographic correlation may be helpful. Francisco Javier Lam MD, FAAN, FAANEM Neurology and electrodiagnostic Medicine Nerve Conduction Studies Motor Nerve Results ? Latency Amplitude F-Lat Segment Distance CV Comment Site (ms) (mV) (ms) (cm) (m/s) Left Dp Branch Fibular (TA) Motor Fib Head 2.8 2.2 Pop Fossa 5.2 2.1 Pop Fossa-Fib Head 80 33 Right Dp Branch Fibular (TA) Motor Fib Head 4.3 2.0 Pop Fossa 5.7 1.99 Pop Fossa-Fib Head 85 61 Left Peroneal (EDB) Motor Ankle NR NR Bel Fib Head NR NR Bel Fib Head-Ankle 290 NR Pop Fossa NR NR Pop Fossa-Bel Fib Head 70 NR Right Peroneal (EDB) Motor Ankle - - Bel Fib Head NR NR Bel Fib Head-Ankle 280 NR Pop Fossa NR NR Pop Fossa-Bel Fib Head 75 NR Left Tibial (AHB) Motor Ankle NR NR Knee NR NR Knee-Ankle 410 NR Right Tibial (AHB) Motor Ankle 11.0 0.05 Knee 25.6 0.09 Knee-Ankle 410 28 Sensory Nerve Results ? Latency (Peak) Amplitude (P-P) Segment Distance CV Comment Site (ms) (?V) (cm) (m/s) Left Sural Sensory Calf-Lat Mall NR NR Calf-Lat Mall 120 NR Right Sural Sensory Calf-Lat Mall NR NR Calf-Lat Mall 120 NR H-Reflex Results ? M-Lat H Lat H Peak-Peak Amp M Peak-Peak Amp H-M Lat Site (ms) (ms) mV mV (ms) Left Tibial H-Reflex Pop Fossa - NR - - NR Right Tibial H-Reflex Pop Fossa - NR - - NR Electromyography ?Side Muscle Nerve Ins Act Fibs Psw Amp Dur Recrt Comment Left AntTibialis Dp Br Fibular Nml Nml Nml Incr >12ms +1 Right AntTibialis Dp Br Fibular Nml Nml Nml Incr >12ms +2 Left BicepsFemS Sciatic Nml Nml Nml Nml >12ms +1 Right BicepsFemS Sciatic Nml Nml Nml Incr >12ms +1 Right Gastroc Tibial Nml Nml Nml Incr >12ms +2 Left Gastroc Tibial Nml Nml Nml Incr >12ms +2 Left GluteusMax InfGluteal Nml Nml Nml Nml Nml Nml Right GluteusMax InfGluteal Nml Nml Nml Nml Nml Nml Right L3 Parasp Rami Nml Nml Nml Nml Nml Nml Left L4 Parasp Rami Nml Nml Nml Nml Nml Nml Right L4 Parasp Rami Nml Nml 1+ Nml Nml Nml Left L5 Parasp Rami Nml Nml Nml Nml Nml Nml Right L5 Parasp Rami Nml Nml Nml Nml Nml Nml Left RectFemoris Femoral Nml Nml Nml Nml Nml Nml Right RectFemoris Femoral Nml Nml Nml Nml Nml Nml Left Semimembranosus Sciatic Nml Nml 1+ Nml Nml Nml CRD. INCREASE POLYPHYSICAL. Right Semimembranosus Sciatic Nml Nml Nml Nml Nml Nml Right TensorFascLat SupGluteal Nml Nml Nml Nml Nml Nml Left TensorFascLat SupGluteal Nml Nml Nml Nml Nml +1 Left VastusMed Femoral Nml Nml Nml Nml Nml Nml Right VastusMed Femoral Nml Nml Nml Nml Nml Nml INCREASE POLYPHYSICAL
== END 2025-11-03 13:11 | disposition home or self-care (01) ==
LOC: ANHNEURO 13:11
PROVIDERS: PCP Internal Medicine; Visit Provider Plastic Surgery
DX: G62.9 Polyneuropathy, unspecified (principal); I12.9 Hypertensive chronic kidney disease with stage 1 through stage 4 chronic kidney disease, or unspecified chronic kidney disease; N18.32 Chronic kidney disease, stage 3b; I48.0 Paroxysmal atrial fibrillation; G47.33 Obstructive sleep apnea (adult) (pediatric); Z99.89 Dependence on other enabling machines and devices
CPT/HCPCS: 95886; 95910